=== PATIENT | female | born 1995 | race Hispanic/Latino ===

== ENCOUNTER 2018-07-21 11:01 | Emergency (ER) | payer SELFPAY ==
[2018-07-21 12:22] LABS: Absolute Lymphocytes (CBC) 1.5 K/uL (0.7-4.9); Absolute Monocytes 0.6 K/uL (0.1-1.3); Absolute Neutrophil 5.3 K/uL (1.8-8.0); Basophils % 0.4 % (0-1.3); Eosinophils % 0.6 % (0-4.4); Hematocrit 40.1 % (36.0-45.0); Lymphocytes % 19.9 % (15.3-44.8); MCH 29.6 pg (27.0-35.0); MCV 86.5 fL (80-100); Monocytes % 8.2 % (3.3-12.3); RBC Red Blood Cell Count 4.64 M/uL (3.86-4.86)
[2018-07-21 13:04] LABS: BUN Blood Urea Nitrogen 6 mg/dL (7-18); Bicarbonate 22 mmol/L (21-32); Glucose Level 83 mg/dL (74-106); HCG, Quantitative 35641 mIU/mL (1-3); Potassium 3.3 mmol/L (3.5-5.1); Sodium Level 139 mmol/L (136-145)
--- NOTE | 2018-07-21 14:08 | EDPHYS ---
Physician Documentation [facility] Name: Yesica Islas Age: 23 yrs Sex: Female : 1995 Arrival Date: 07/21/2018 Time: 11:04 Bed 13 Private MD: ED Physician Mich Mai HPI: 07/21 11:38 This 23 yrs old Female presents to ER via Ambulatory with complaints of jr8 Vaginal Bleeding, + Preg <12wks. 11:38 The patient presents to the emergency department with vaginal bleeding, that is light. jr8 The estimated gestational age is 10 weeks. course: care: none, Leakage of Fluid: none appreciated, Ultrasound: the patient has not had an ultrasound, Risk/complications: no obvious risks or complications are appreciated. Previous pregnancies: the patient has never been . Associated signs and symptoms: The patient has no apparent associated signs or symptoms. The patient has not experienced similar symptoms in the past. The patient has not recently seen a physician. spotting this morning without cramping . 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 - Social history:: Smoking status: Patient/guardian denies using tobacco. - Ebola Screening: : Patient denies travel to an Ebola-affected area in the 21 days before illness onset. ROS: 11:38 Eyes: Negative for injury, pain, redness, and discharge, ENT: Negative for injury, jr8 pain, and discharge, Neck: Negative for injury, pain, and swelling, Cardiovascular: Negative for chest pain, palpitations, and edema, Respiratory: Negative for shortness of breath, cough, wheezing, and pleuritic chest pain, Abdomen/GI: Negative for abdominal pain, nausea, vomiting, diarrhea, and constipation, Back: Negative for injury and pain, MS/Extremity: Negative for injury and deformity, Skin: Negative for injury, rash, and discoloration, Neuro: Negative for headache, weakness, numbness, tingling, and seizure. 11:38 : Positive for vaginal bleeding, Negative for urinary symptoms, pelvic pain. Exam: 11:38 Eyes: Pupils equal round and reactive to light, extra-ocular motions intact. Lids and jr8 lashes normal. Conjunctiva and sclera are non-icteric and not injected. Cornea within normal limits. Periorbital areas with no swelling, redness, or edema. ENT: Nares patent. No nasal discharge, no septal abnormalities noted. Tympanic membranes are normal and external auditory canals are clear. Oropharynx with no redness, swelling, or masses, exudates, or evidence of obstruction, uvula midline. Mucous membranes moist. Neck: Trachea midline, no thyromegaly or masses palpated, and no cervical lymphadenopathy. Supple, full range of motion without nuchal rigidity, or vertebral point tenderness. No Meningismus. Cardiovascular: Regular rate and rhythm with a normal S1 and S2. No gallops, murmurs, or rubs. Normal PMI, no JVD. No pulse deficits. Respiratory: Lungs have equal breath sounds bilaterally, clear to auscultation and percussion. No rales, rhonchi or wheezes noted. No increased work of breathing, no retractions or nasal flaring. Abdomen/GI: Soft, non-tender, with normal bowel sounds. No distension or tympany. No guarding or rebound. No evidence of tenderness throughout. Back: No spinal tenderness. No costovertebral tenderness. Full range of motion. Skin: Warm, dry with normal turgor. Normal color with no rashes, no lesions, and no evidence of cellulitis. MS/ Extremity: Pulses equal, no cyanosis. Neurovascular intact. Full, normal range of motion. Neuro: Awake and alert, GCS 15, oriented to person, place, time, and situation. Cranial nerves II-XII grossly intact. Motor strength 5/5 in all extremities. Sensory grossly intact. Cerebellar exam normal. Normal gait. Vital Signs: 11:08 BP 123 / 75; Pulse 98; Resp 20; Temp 97.2; Pulse Ox 98% on R/A; Weight 58.06 kg (R); aj1 Height 5 ft. 3 in. (160.02 cm) (R); Pain 0/10; 12:00 BP 125 / 71; Pulse 88; Resp 17; Pulse Ox 100% on R/A; rb1 13:00 BP 124 / 79; Pulse 81; Resp 16; Pulse Ox 100% on R/A; rb1 14:00 BP 124 / 77; Pulse 87; Resp 16; Pulse Ox 99% on R/A; rb1 11:08 Body Mass Index 22.67 (58.06 kg, 160.02 cm) aj1 MDM: 11:18 Patient medically screened. jr8 14:06 Data reviewed: vital signs, nurses notes, lab test result(s), radiologic studies, jr8 ultrasound, and as a result, I will discharge patient. Data interpreted: Pulse oximetry: on room air is 98 %. Interpretation: normal. Counseling: I had a detailed discussion with the patient and/or guardian regarding: the historical points, exam findings, and any diagnostic results supporting the discharge/admit diagnosis, lab results, radiology results, the need for outpatient follow up, an OB/Gyne specialist, to return to the emergency department if symptoms worsen or persist or if there are any questions or concerns that arise at home. 07/21 11:29 Order name: Quantitative Hcg; Complete Time: 13:35 8 07/21 11:29 Order name: Abo/rh Typing; Complete Time: 12:33 8 07/21 11:29 Order name: Basic Metabolic Panel; Complete Time: 13:35 8 07/21 11:29 Order name: CBC with Diff; Complete Time: 12:33 8 07/21 12:29 Order name: Urine Dipstick--Ancillary (enter results) 07/21 12:29 Order name: Urine --Ancillary (enter results) bd 07/21 11:29 Order name: Urine Test (obtain specimen); Complete Time: 12:18 8 07/21 11:29 Order name: IV Saline Lock; Complete Time: 12:11 8 07/21 11:29 Order name: Labs collected and sent; Complete Time: 12:11 8 07/21 11:29 Order name: NPO; Complete Time: 12:11 8 07/21 11:29 Order name: Urine Dipstick-Ancillary (obtain specimen); Complete Time: 12:18 [facility] 07/21 12:33 Order name: ABO/RH no charge; Complete Time: 12:34 EDMS 07/21 13:35 Order name: US Transvaginal Ob jr8 Administered Medications: No medications were administered Point of Care Testing: Urine : 13:30 hCG Reading: Positive; rb1 Disposition: 15:19 Co-signature as Attending Physician, Mich Mai MD I agree with the assessment and kdr plan of care. Disposition: 07/21/18 14:07 Discharged to Home. Impression: Threatened . - Condition is Stable. - Discharge Instructions: Threatened Miscarriage, Vaginal Bleeding During , First Trimester, Pelvic Rest. - Medication Reconciliation Form, Thank You Letter, Antibiotic Education, Prescription Opioid Use form. - Follow up: Private Physician; When: 2 - 3 days; Reason: Recheck today's complaints, Continuance of care, Re-evaluation by your physician. - Problem is new. - Symptoms have improved. Signatures: Dispatcher [employer] EDWV Dorinda Wooten RN RN aj1 Mich Mai MD MD kdr Roszak, Josh, PA PA jr8 Deepthi Alcala, RN RN rb1 Corrections: (The following items were deleted from the chart) 15:06 14:07 07/21/2018 14:07 Discharged to Home. Impression: Threatened . Condition rb1 is Stable. Forms are Medication Reconciliation Form, Thank You Letter, Antibiotic Education, Prescription Opioid Use. Follow up: Private Physician; When: 2 - 3 days; Reason: Recheck today's complaints, Continuance of care, Re-evaluation by your physician. Problem is new. Symptoms have improved. jr8
--- NOTE | 2018-07-21 14:08 | ER ---
Nurse's Notes [facility] Name: Yesica Islas Age: 23 yrs Sex: Female : 1995 Arrival Date: 07/21/2018 Time: 11:04 Bed 13 Private MD: Diagnosis: Threatened Presentation: 07/21 11:05 Presenting complaint: Patient states: She's 10 weeks and she started having aj1 bright red vaginal bleeding that she describes as light. Reports that she has been getting some cramping since she became , but nothing that has changed or gotten worse. Transition of care: patient was not received from another setting of care. Onset of symptoms was July 21, 2018. Risk Assessment: Do you want to hurt yourself or someone else? Patient reports no desire to harm self or others. Initial Sepsis Screen: Does the patient meet any 2 criteria? HR > 90 bpm. No. Patient's initial sepsis screen is negative. Does the patient have a suspected source of infection? No. Patient's initial sepsis screen is negative. Care prior to arrival: None. 11:05 Method Of Arrival: Ambulatory aj1 11:05 Acuity: KOFI 3 aj1 Triage Assessment: 11:08 General: Appears in no apparent distress. comfortable, Behavior is calm, cooperative, aj1 appropriate for age. Pain: Denies pain. Neuro: Level of Consciousness is awake, alert, obeys commands. Cardiovascular: Patient's skin is warm and dry. Respiratory: Airway is patent Respiratory effort is even, unlabored, Respiratory pattern is regular, symmetrical. : Reports vaginal bleeding that is bright red, light flow. 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 - Social history:: Smoking status: Patient/guardian denies using tobacco. - Ebola Screening: : Patient denies travel to an Ebola-affected area in the 21 days before illness onset. Screenin:10 Abuse screen: Denies threats or abuse. Nutritional screening: No deficits noted. rb1 Tuberculosis screening: No symptoms or risk factors identified. Fall Risk None identified. Assessment: 11:10 General: Appears in no apparent distress. comfortable, Behavior is calm, cooperative, rb1 Denies fever. Pain: Complains of pain in suprapubic area Pain currently is 5 out of 10 on a pain scale. Quality of pain is described as crampy, Pain began this morning. Neuro: Level of Consciousness is awake, alert, obeys commands, Oriented to person, place, time, situation. Cardiovascular: Capillary refill < 3 seconds is brisk in bilateral fingers. Respiratory: Airway is patent Respiratory effort is even, unlabored, Respiratory pattern is regular, symmetrical. GI: No signs and/or symptoms were reported involving the gastrointestinal system. : Reports vaginal bleeding that is light flow, denies blood clots Denies burning with urination. Derm: Skin is pink, warm \T\ dry. 11:10 Obstetrical Assessment: Patient reports abdominal cramping. rb1 12:10 Reassessment: Patient appears in no apparent distress at this time. No changes from rb1 previously documented assessment. Family at bedside. 13:10 Reassessment: Patient appears in no apparent distress at this time. Patient and/or rb1 family updated on plan of care and expected duration. Pain level reassessed. Patient is alert, oriented x 3, equal unlabored respirations, skin warm/dry/pink. 13:44 Reassessment: Pt. is going to US. rb1 14:30 Reassessment: Patient appears in no apparent distress at this time. Patient and/or rb1 family updated on plan of care and expected duration. Pain level reassessed. Patient is alert, oriented x 3, equal unlabored respirations, skin warm/dry/pink. Vital Signs: 11:08 BP 123 / 75; Pulse 98; Resp 20; Temp 97.2; Pulse Ox 98% on R/A; Weight 58.06 kg (R); aj1 Height 5 ft. 3 in. (160.02 cm) (R); Pain 0/10; 12:00 BP 125 / 71; Pulse 88; Resp 17; Pulse Ox 100% on R/A; rb1 13:00 BP 124 / 79; Pulse 81; Resp 16; Pulse Ox 100% on R/A; rb1 14:00 BP 124 / 77; Pulse 87; Resp 16; Pulse Ox 99% on R/A; rb1 11:08 Body Mass Index 22.67 (58.06 kg, 160.02 cm) aj1 Vitals: 13:00 Heart Tones 128 bpm. rb1 ED Course: 11:04 Patient arrived in ED. aj1 11:07 Triage completed. aj1 11:08 Arm band placed on Patient placed in an exam room. aj1 11:10 Deepthi Alcala, RN is Primary Nurse. rb1 11:10 Patient has correct armband on for positive identification. Bed in low position. Call rb1 light in reach. Side rails up X 1. Pulse ox on. NIBP on. 11:18 Mir Cervantes PA is PHCP. jr8 11:18 Mich Mai MD is Attending Physician. jr8 12:00 Inserted saline lock: 22 gauge in right antecubital area, using aseptic technique. rb1 Blood collected. 12:17 Urine collected: clean catch specimen, cloudy. dh3 14:01 US Transvaginal Ob In Process Unspecified. EDMS 14:35 No provider procedures requiring assistance completed. IV discontinued, intact, rb1 bleeding controlled, No redness/swelling at site. Pressure dressing applied. 14:35 No provider procedures requiring assistance completed. rb1 Administered Medications: No medications were administered Point of Care Testing: Urine : 13:30 hCG Reading: Positive; rb1 Outcome: 14:07 Discharge ordered by . [facility] 14:35 Patient left the ED. rb1 14:35 Discharged to home ambulatory, with family. rb1 14:35 Condition: stable 14:35 Discharge instructions given to patient, Instructed on discharge instructions, follow up and referral plans. Demonstrated understanding of instructions, follow-up care, Prescriptions given X none Signatures: Dispatcher [employer] EDWI Dorinda Wooten RN RN aj1 Mir Cervantes PA PA [facility] Deepthi Alcala, RN RN rb1 Silvia Finn 3 Corrections: (The following items were deleted from the chart) 15:07 15:06 Patient left the ED. rb1 rb1
--- NOTE | 2018-07-21 15:07 | RAD REPORT ---
EXAM DESCRIPTION: US - Transvaginal OB - 07/21/2018 2:01 pm CLINICAL HISTORY: , vaginal bleeding Preliminary findings provided at the time of the study. COMPARISON: None. TECHNIQUE: Endovaginal sonography performed. FINDINGS: A normal-appearing intrauterine gestational sac is seen fundal endometrial cavity. Yolk sa c is seen. [place]-rump length corresponds to 6 week 4 day age. SIMONA is 03/12/2019. Heart rate is 128 BP M. No hematoma or mass in the endometrial cavity. Cervical canal appears closed. A 13 millimeter partially collapsed right ovarian cyst is present. Ovaries have a normal configuratio n. No adnexal abnormality. No blood or free fluid in the cul-de-sac. IMPRESSION: Single 6 week 4 day IUP. SIMONA is 03/12/2019. Heart rate is 128 BPM. No hematoma or intrauterine abnormality. No ovarian or adnexal abnormality.
[2018-07-21 16:34] LABS: Urine Blood TRACE (NEG); Urine Glucose NEGATIVE (NEG); Urine Protein NEGATIVE (NEG)
== END 2018-07-21 15:06 | disposition home or self-care (01) ==
LOC: ER 11:01
DX: O20.0 Threatened abortion (principal); Z3A.10 10 weeks gestation of pregnancy
CPT/HCPCS: 36415; 76817; 80048; 81003; 81025; 84702; 85025; 86900; 86901; 99284

== ENCOUNTER 2018-08-12 19:42 | Emergency (ER) | payer OTHER ==
[2018-08-12 20:58] LABS: Urine Bacteria LOADED /HPF (<20); Urine Culture Reflex Order REFLEXED; Urine RBC NONE SEEN /HPF (NONE SEEN)
[2018-08-12 21:18] LABS: Urine Blood TRACE (NEG); Urine Glucose NEGATIVE (NEG); Urine Protein NEGATIVE (NEG); Urine Specific Gravity 1.025 (1.005-1.030)
--- NOTE | 2018-08-12 22:32 | EDPHYS ---
Physician Documentation [facility] Name: Yesica Islas Age: 23 yrs Sex: Female : 1995 Arrival Date: 08/12/2018 Time: 19:45 Bed 18 Private MD: ED Physician Roman Landry HPI: 08/12 20:11 This 23 yrs old Female presents to ER via Ambulatory with complaints of rn Congestion, Nasal Congestion. 20:11 The patient or guardian reports cough, described as mild, with no sputum. Onset: The rn symptoms/episode began/occurred 5 day(s) ago. Severity of symptoms: At their worst the symptoms were mild, in the emergency department the symptoms are unchanged. Associated signs and symptoms: Pertinent positives: earache, rhinorrhea, sore throat. The patient has experienced similar episodes in the past. REports fatigue, cough, congestion, sore throat, ear pain, no fever, began 5 days ago, no urinary symptoms, no vaginal discharge, no vaginal bleeding, no abd pain. Reports about 10-12 weeks . No chronic lung problems. . 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 - Social history:: Smoking status: Patient/guardian denies using tobacco. - Ebola Screening: : Patient denies travel to an Ebola-affected area in the 21 days before illness onset. - Family history:: not pertinent. - Hospitalizations: : No recent hospitalization is reported. ROS: 20:11 Constitutional: Negative for fever, chills, and weight loss, Eyes: Negative for injury, rn pain, redness, and discharge, ENT: + nasal congestion and ear pain Neck: + sore throat Cardiovascular: Negative for chest pain, palpitations, and edema, Respiratory: + cough, no sob Abdomen/GI: Negative for abdominal pain, nausea, vomiting, diarrhea, and constipation, MS/Extremity: Negative for injury and deformity, Skin: Negative for injury, rash, and discoloration, Neuro: Negative for headache, numbness, tingling, and seizure. Exam: 20:11 Constitutional: This is a well developed, well nourished patient who is awake, alert, rn and in no acute distress. Walked without difficulty to room. Head/Face: Normocephalic, atraumatic. Eyes: Pupils equal round and reactive to light, extra-ocular motions intact. Lids and lashes normal. Conjunctiva and sclera are non-icteric and not injected. Cornea within normal limits. Periorbital areas with no swelling, redness, or edema. ENT: MMM, no stridor, + mild pharyngeal erythema, + tender cervical LAD Neck: Trachea midline, no thyromegaly or masses palpated. Supple, full range of motion without nuchal rigidity, or vertebral point tenderness. No Meningismus. Cardiovascular: Regular rate and rhythm with a normal S1 and S2. No gallops, murmurs, or rubs. Normal PMI, no JVD. No pulse deficits. Respiratory: Lungs have equal breath sounds bilaterally, clear to auscultation and percussion. No rales, rhonchi or wheezes noted. No increased work of breathing, no retractions or nasal flaring. Abdomen/GI: soft, non-tender Skin: Warm, dry with normal turgor. Normal color with no rashes, no lesions, and no evidence of cellulitis. MS/ Extremity: Pulses equal, no cyanosis. Neurovascular intact. Full, normal range of motion. Equal circumference. Neuro: Awake and alert, GCS 15, oriented to person, place, time, and situation. Cranial nerves II-XII grossly intact. Motor strength 5/5 in all extremities. Sensory grossly intact. Cerebellar exam normal. Normal gait. Vital Signs: 19:58 BP 120 / 76; Pulse 86; Resp 18; Temp 98.0; Pulse Ox 99% on R/A; Weight 63.05 kg (R); aj1 Height 5 ft. 3 in. (160.02 cm) (R); 20:30 BP 110 / 69; Pulse 77; Resp 20 S; Pulse Ox 99% on R/A; cc3 21:15 BP 107 / 76; Pulse 71; Resp 19 S; Pulse Ox 99% on R/A; cc3 22:40 BP 112 / 67; Pulse 72; Resp 19 S; Pulse Ox 98% on R/A; cc3 19:58 Body Mass Index 24.62 (63.05 kg, 160.02 cm) aj1 MDM: 20:01 Patient medically screened. rn 22:30 Differential Diagnosis: Bronchitis Influenza Upper Respiratory Infection Pharyngitis rn Viral Syndrome. Data reviewed: vital signs, nurses notes, lab test result(s), radiologic studies, ultrasound, and as a result, I will discharge patient. Counseling: I had a detailed discussion with the patient and/or guardian regarding: the historical points, exam findings, and any diagnostic results supporting the discharge/admit diagnosis, lab results, radiology results, the need for outpatient follow up, to return to the emergency department if symptoms worsen or persist or if there are any questions or concerns that arise at home. Special discussion: I discussed with the patient/guardian in detail that at this point there is no indication for admission to the hospital. It is understood, however, that if the symptoms persist or worsen the patient needs to return immediately for re-evaluation. Based on the history and exam findings, there is no indication for further emergent testing or inpatient evaluation. I discussed with the patient/guardian the need to see the OB Gyne specialist for further evaluation of the symptoms. 22:32 ED course: U/S shows 10 weeks gestational age with HR 166.. rn 08/12 20:10 Order name: Strep; Complete Time: 21:13 rn 08/12 20:10 Order name: Flu; Complete Time: 21:13 rn 08/12 20:10 Order name: Urine Microscopic Only; Complete Time: 21:13 rn 08/12 20:23 Order name: Urine Dipstick--Ancillary (enter results) [facility] 08/12 20:23 Order name: Urine --Ancillary (enter results) [facility] 08/12 21:00 Order name: Urine Culture [facility] 08/12 20:10 Order name: Urine Dipstick-Ancillary (obtain specimen); Complete Time: 20:19 rn 08/12 20:23 Order name: Urine Test (obtain specimen); Complete Time: 20:23 [facility] 08/12 21:10 Order name: Throat Culture [facility] Administered Medications: No medications were administered Disposition: 08/12/18 22:31 Discharged to Home. Impression: Acute upper respiratory infection, unspecified, Bacteruria, Intrauterine . - Condition is Stable. - Discharge Instructions: Viral Respiratory Infection, First Trimester of , and Urinary Tract Infection. - Prescriptions for Macrobid 100 mg Oral Capsule - take 1 capsule by ORAL route every 12 hours for 7 days; 14 capsule. - Medication Reconciliation Form, Thank You Letter, Antibiotic Education, Prescription Opioid Use form. - Follow up: Private Physician; When: As needed; Reason: Recheck today's complaints, Re-evaluation by your physician. - Problem is new. - Symptoms have improved. Signatures: Dispatcher [employer] EDDorinda Santana RN RN aj1 Roman Landry MD MD rn Martinez, Eric em1 Linda Jennings cc3 Corrections: (The following items were deleted from the chart) 23:08 22:31 08/12/2018 22:31 Discharged to Home. Impression: Acute upper respiratory cc3 infection, unspecified; Bacteruria; Intrauterine . Condition is Stable. Forms are Medication Reconciliation Form, Thank You Letter, Antibiotic Education, Prescription Opioid Use. Follow up: Private Physician; When: As needed; Reason: Recheck today's complaints, Re-evaluation by your physician. Problem is new. Symptoms have improved. rn
--- NOTE | 2018-08-12 22:32 | ER ---
Nurse's Notes [facility] Name: Yesica Islas Age: 23 yrs Sex: Female : 1995 Arrival Date: 08/12/2018 Time: 19:45 Bed 18 Private MD: Diagnosis: Acute upper respiratory infection, unspecified;Bacteruria;Intrauterine Presentation: 08/12 19:55 Presenting complaint: Patient states: Nasal congestion, ear pain, sore throat for the aj1 past 5 days. Denies fever. Patient reports she is somewhere between 10-12 weeks . Patient has not had any care. Transition of care: patient was not received from another setting of care. Resp Distress? No respiratory distress is noted at this time. Onset of symptoms was August 06, 2018. Risk Assessment: Do you want to hurt yourself or someone else? Patient reports no desire to harm self or others. Initial Sepsis Screen: Does the patient meet any 2 criteria? No. Patient's initial sepsis screen is negative. Does the patient have a suspected source of infection? No. Patient's initial sepsis screen is negative. Care prior to arrival: None. 19:55 Method Of Arrival: Ambulatory aj1 19:55 Acuity: KOFI 4 aj1 Triage Assessment: 19:58 General: Appears in no apparent distress. comfortable, Behavior is calm, cooperative, aj1 appropriate for age. Pain: Complains of pain in right ear, left ear, left femoral area, left aspect of posterior pharynx and right aspect of posterior pharynx Pain currently is 6 out of 10 on a pain scale. EENT: Reports nasal congestion nasal discharge ear pain, sore throat. Neuro: Level of Consciousness is awake, alert, obeys commands. Cardiovascular: Patient's skin is warm and dry. Respiratory: Airway is patent Respiratory effort is even, unlabored, Respiratory pattern is regular, symmetrical. 20:10 Respiratory: Breath sounds are clear bilaterally. 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 - Social history:: Smoking status: Patient/guardian denies using tobacco. - Ebola Screening: : Patient denies travel to an Ebola-affected area in the 21 days before illness onset. - Family history:: not pertinent. - Hospitalizations: : No recent hospitalization is reported. Screenin:10 Abuse screen: Denies threats or abuse. Denies injuries from another. Nutritional cc3 screening: No deficits noted. Tuberculosis screening: No symptoms or risk factors identified. Fall Risk Ambulatory Aid- None/Bed Rest/Nurse Assist (0 pts). Gait- Normal/Bed Rest/Wheelchair (0 pts) Mental Status- Oriented to own ability (0 pts). Assessment: 21:30 Reassessment: Patient appears in no apparent distress at this time. Patient and/or cc3 family updated on plan of care and expected duration. Pain level reassessed. Patient is alert, oriented x 3, equal unlabored respirations, skin warm/dry/pink. Patient vomited, called ultrasound department at extension [phone] to follow up the OB ultrasound appointment of the patient but nobody answered the call so just left a voicemail message. 22:15 Reassessment: Patient appears in no apparent distress at this time. Patient and/or cc3 family updated on plan of care and expected duration. Pain level reassessed. Patient is alert, oriented x 3, equal unlabored respirations, skin warm/dry/pink. Patient taken by breeder service technician to their department for the ultrasound procedure. 23:00 Reassessment: Patient appears in no apparent distress at this time. Patient and/or cc3 family updated on plan of care and expected duration. Pain level reassessed. Patient is alert, oriented x 3, equal unlabored respirations, skin warm/dry/pink. Dr. Landry discharged the patient home with prescription given. No IV cannula in situ. Patient left ER vitally stable and ambulatory with her mother. Vital Signs: 19:58 BP 120 / 76; Pulse 86; Resp 18; Temp 98.0; Pulse Ox 99% on R/A; Weight 63.05 kg (R); aj1 Height 5 ft. 3 in. (160.02 cm) (R); 20:30 BP 110 / 69; Pulse 77; Resp 20 S; Pulse Ox 99% on R/A; cc3 21:15 BP 107 / 76; Pulse 71; Resp 19 S; Pulse Ox 99% on R/A; cc3 22:40 BP 112 / 67; Pulse 72; Resp 19 S; Pulse Ox 98% on R/A; cc3 19:58 Body Mass Index 24.62 (63.05 kg, 160.02 cm) aj1 ED Course: 19:45 Patient arrived in ED. al2 19:57 Triage completed. aj1 19:58 Arm band placed on. aj1 20:00 Roman Landry MD is Attending Physician. rn 20:10 Linda Jennings is Primary Nurse. cc3 20:10 Patient has correct armband on for positive identification. Bed in low position. Call cc3 light in reach. Side rails up X 1. Adult w/ patient. director of plant operations on. Pulse ox on. NIBP on. 20:28 Flu and/or RSV swab sent to lab. Strep swab sent to lab. cb2 22:13 US OB Limited In Process Unspecified. EDMS 23:00 No provider procedures requiring assistance completed. Patient did not have IV access cc3 during this emergency room visit. Administered Medications: No medications were administered Outcome: 22:31 Discharge ordered by . rn 23:00 Discharged to home ambulatory, with family. cc3 23:00 Condition: stable 23:00 Discharge instructions given to patient, family, Instructed on discharge instructions, follow up and referral plans. medication usage, Demonstrated understanding of instructions, follow-up care, medications, Prescriptions given X 1. 23:08 Patient left the ED. cc3 Addendum: 08/15/2018 07:35 Addendum: Culture Results: Positive urine culture. No further action required. Bacteria i w sensitive to prescribed antibiotic. Signatures: Dispatcher [employer] EDMS Dorinda Wooten RN RN aj1 Jackie Rios RN RN Roman Landry MD MD rn Bulan, Christian cb2 Love, Angelica alLinda Baez cc3
--- NOTE | 2018-08-13 07:50 | RAD REPORT ---
EXAM DESCRIPTION: US - Transvaginal OB - 08/13/2018 7:39 am CLINICAL HISTORY: with abdominal pain and vaginal bleeding COMPARISON: None. FINDINGS: The uterus 9 x 7 x 7 centimeters. A gestational sac is present within the endometrium. Wi thin this is a yolk sac and pole with a crown-rump length 3.3 centimeters. Cardiac activity 166 beats per minute Neither ovary was seen. An adnexal mass is not noted. No significant free fluid is seen. IMPRESSION: Single live intrauterine with an estimated gestational age 10 weeks 1 day SIMONA 03/09/2019
== END 2018-08-12 23:08 | disposition home or self-care (01) ==
LOC: ER 19:42
DX: J06.9 Acute upper respiratory infection, unspecified (principal); R82.71 Bacteriuria; Z33.1 Pregnant state, incidental
CPT/HCPCS: 76815; 76817; 81003; 81015; 81025; 87070; 87077; 87081; 87086; 87088; 87186; 87804; 99284

== ENCOUNTER 2018-09-29 11:19 | Emergency (ER) | payer OTHER ==
[2018-09-29 12:20] LABS: Absolute Lymphocytes (CBC) 1.2 K/uL (0.7-4.9); Absolute Monocytes 0.5 K/uL (0.1-1.3); Absolute Neutrophil 5.8 K/uL (1.8-8.0); Basophils % 0.3 % (0-1.3); Eosinophils % 0.2 % (0-4.4); Hematocrit 36.6 % (36.0-45.0); Lymphocytes % 16.4 % (15.3-44.8); MPV 10.7 fL (7.6-11.3); Monocytes % 6.7 % (3.3-12.3); RBC Red Blood Cell Count 4.23 M/uL (3.86-4.86)
[2018-09-29] MEDS ORDERED: MECLIZINE HCL 12.5 MG TAB ONE (12:31)
[2018-09-29] MEDS ORDERED: ONDANSETRON 4 MG/2 ML VIAL ONE (12:31)
[2018-09-29] MEDS ORDERED: NA CHLORIDE 0.9% 1,000 ML ONE (12:31)
[2018-09-29 12:38] LABS: ALT/SGPT 10 U/L (12-78); AST/SGOT 11 U/L (15-37); Albumin 3.4 g/dL (3.4-5.0); Alkaline Phosphatase 75 U/L (45-117); BUN Blood Urea Nitrogen 6 mg/dL (7-18); Bicarbonate 22 mmol/L (21-32); Bilirubin Total 0.4 mg/dL (0.2-1.0); Glucose Level 81 mg/dL (74-106); Potassium 3.2 mmol/L (3.5-5.1); Protein, Total 7.7 g/dL (6.4-8.2); Sodium Level 139 mmol/L (136-145)
[2018-09-29] MEDS ORDERED: POTASSIUM CL SA 10 MEQ TAB PO ONE (13:04)
[2018-09-29] MEDS ORDERED: ACETAMINOPHEN 500 MG TAB ONE (13:13)
--- NOTE | 2018-09-29 13:20 | ER ---
Nurse's Notes [facility] Name: Yesica Islas Age: 23 yrs Sex: Female : 1995 Arrival Date: 09/29/2018 Time: 11:25 Bed 20 Private MD: None, None Diagnosis: Vertigo of central origin;Vomiting of , unspecified Presentation: 09/29 11:27 Presenting complaint: Patient states: i am 17 weeks and i started feeling tw2 dizzy yesterday, i throw up all the time i cant hardly keep anything down. Transition of care: patient was not received from another setting of care. Onset of symptoms was September 29, 2018. Risk Assessment: Do you want to hurt yourself or someone else? Patient reports no desire to harm self or others. Initial Sepsis Screen: Does the patient meet any 2 criteria? No. Patient's initial sepsis screen is negative. Does the patient have a suspected source of infection? No. Patient's initial sepsis screen is negative. Care prior to arrival: None. 11:27 Method Of Arrival: Ambulatory tw2 11:27 Acuity: KOFI 3 tw2 Triage Assessment: 11:29 General: Appears in no apparent distress. well groomed, Behavior is calm, cooperative, tw2 appropriate for age. Pain: Denies pain. Also complains of dizziness. GI: Reports cramping, nausea. 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 - Social history:: Smoking status: Patient/guardian denies using tobacco. - Ebola Screening: : Patient denies travel to an Ebola-affected area in the 21 days before illness onset. Screenin:15 Abuse screen: Denies threats or abuse. Nutritional screening: No deficits noted. la1 Tuberculosis screening: No symptoms or risk factors identified. Fall Risk None identified. Assessment: 12:15 General: Appears in no apparent distress. Behavior is calm, cooperative. Pain: Denies la1 pain. Neuro: Level of Consciousness is awake, alert, obeys commands, Oriented to person, place, time, situation, Technical System Analyst are equal bilaterally Moves all extremities. Full function Gait is steady, Speech is normal, Facial symmetry appears normal, Pupils are PERRLA. Cardiovascular: Capillary refill < 3 seconds Patient's skin is warm and dry. Respiratory: Airway is patent Respiratory effort is even, unlabored, Respiratory pattern is regular, symmetrical. GI: Reports nausea, vomiting, Patient currently denies bloody stool, constipation, cramping, diarrhea. : No signs and/or symptoms were reported regarding the genitourinary system. Vital Signs: 11:28 BP 115 / 79; Pulse 78; Resp 17; Temp 97.5(TE); Pulse Ox 99% on R/A; Pain 0/10; tw2 13:36 BP 118 / 74; Pulse 71; Resp 16; Pulse Ox 98% on R/A; la1 NIH Stroke Scale Scores: 13:09 NIHSS Score: 0 la1 ED Course: 11:25 Patient arrived in ED. sb2 11:25 None, None is Private Physician. sb2 11:28 Triage completed. tw2 11:28 Arm band placed on. tw2 11:58 Maria Eugenia Henry FNP is PHCP. nh 11:58 Roman Landry MD is Attending Physician. nh 11:58 Mya Young, PIPO is Primary Nurse. ss 12:15 No provider procedures requiring assistance completed. Inserted saline lock: 20 gauge la1 in left antecubital area, using aseptic technique. Blood collected. 12:16 Bed in low position. Call light in reach. Side rails up X 1. la1 13:37 IV discontinued, intact, bleeding controlled, No redness/swelling at site. Pressure la1 dressing applied. Administered Medications: 12:27 Drug: NS 0.9% 1000 ml Route: IV; Rate: 1 bolus; Site: right antecubital; la1 13:08 Follow up: IV Status: Completed infusion la1 12:28 Not Given (Other Intervention Used): Zofran 4 mg PO once la1 12:28 Drug: Zofran 4 mg Route: IVP; Site: right antecubital; la1 13:08 Follow up: Response: No adverse reaction; Nausea is decreased la1 13:00 Drug: Meclizine 25 mg Route: PO; la1 13:08 Follow up: Response: No adverse reaction la1 13:00 Drug: Potassium Chloride 40 mEq Route: PO; la1 13:09 Follow up: Response: No adverse reaction la1 13:08 Drug: Tylenol 1000 mg Route: PO; la1 13:09 Follow up: Response: No adverse reaction la1 Outcome: 13:20 Discharge ordered by . nh 13:37 Discharged to home ambulatory. la1 13:37 Condition: stable 13:37 Discharge instructions given to patient, Instructed on discharge instructions, follow up and referral plans. medication usage, Demonstrated understanding of instructions, follow-up care, medications, Prescriptions given X 1. 13:37 Patient left the ED. la1 NIH Stroke Scale - NIH Stroke Score Date: 09/29/2018 Time: 13:09 Total Score = 0 1a. Level of Consciousness (LOC) - 0(Alert) 1b. Level of Consciousness (LOC) (Year \T\ Age) - 0(Both) 1c. LOC Commands (Open \T\ Closes Eyes/Machine Compositor) - 0(Both) 2. Best Gaze (Lateral Gaze Paresis) - 0(Normal) 3. Visual Field Loss - 0(No visual loss) 4. Facial Palsy - 0(Normal) 5a. Left Arm: Motor (10-second hold) - 0(No drift) 5b. Right Arm: Motor (10-second hold) - 0(No drift) 6a. Left Leg: Motor (5-second hold - always test supine) - 0(No drift) 6b. Right Leg: Motor (5-second hold - always test supine) - 0(No drift) 7. Limb Ataxia (finger/nose \T\ heel/sena - test with eyes open) - 0(Absent) 8. Sensory Loss (pinprick arms/legs/face) - 0(Normal) 9. Best Language: Aphasia (description/naming/reading) - 0(No aphasia) 10. Dysarthria (speech clarity - read or repeat words) - 0(Normal) 11. Extinction and Inattention (visual/tactile/auditory/spatial/personal) - 0(No abnormality) Initials: la1 Signatures: Maria Eugenia Henry, CAKE ICER CAKE ICER Mya Paul RN RN ss Dariel Disla RN RN la1 Autumn Dodge RN RN tw2 Chela Summers2
--- NOTE | 2018-09-29 13:20 | EDPHYS ---
Physician Documentation [facility] Name: Yesica Islas Age: 23 yrs Sex: Female : 1995 Arrival Date: 09/29/2018 Time: 11:25 Bed 20 Private MD: None, None ED Physician Roman Landry HPI: 09/29 13:16 This 23 yrs old Female presents to ER via Ambulatory with complaints of nh Dizziness - HEAD SPINNING. 13:16 The patient presents with dizziness, feeling off balance, sense of spinning. Onset: The nh symptoms/episode began/occurred 1 day(s) ago, and became worse. Context: occurred at home. Modifying factors: The symptoms are alleviated by holding head still, the symptoms are aggravated by movement of head. Associated signs and symptoms: Pertinent positives: nausea, , vomiting. Severity of symptoms: At their worst the symptoms were moderate just prior to arrival, in the emergency department the symptoms are unchanged. The patient has not experienced similar symptoms in the past. The patient has not recently seen a physician. 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 - Social history:: Smoking status: Patient/guardian denies using tobacco. - Ebola Screening: : Patient denies travel to an Ebola-affected area in the 21 days before illness onset. ROS: 13:16 Constitutional: Negative for fever, chills, and weight loss, Eyes: Negative for injury, nh pain, redness, and discharge, ENT: Negative for injury, pain, and discharge, Neck: Negative for injury, pain, and swelling, Cardiovascular: Negative for chest pain, palpitations, and edema, Respiratory: Negative for shortness of breath, cough, wheezing, and pleuritic chest pain, Back: Negative for injury and pain, : Negative for injury, bleeding, discharge, and swelling, MS/Extremity: Negative for injury and deformity, Skin: Negative for injury, rash, and discoloration, Psych: Negative for depression, anxiety, suicide ideation, homicidal ideation, and hallucinations, Allergy/Immunology: Negative for hives, rash, and allergies, Endocrine: Negative for neck swelling, polydipsia, polyuria, polyphagia, and marked weight changes, Hematologic/Lymphatic: Negative for swollen nodes, abnormal bleeding, and unusual bruising. 13:16 Abdomen/GI: Positive for nausea and vomiting, Negative for abdominal pain, diarrhea. 13:16 Neuro: Positive for dizziness. Exam: 13:16 Constitutional: This is a well developed, well nourished patient who is awake, alert, nh and in no acute distress. Head/Face: Normocephalic, atraumatic. Eyes: Pupils equal round and reactive to light, extra-ocular motions intact. Lids and lashes normal. Conjunctiva and sclera are non-icteric and not injected. Cornea within normal limits. Periorbital areas with no swelling, redness, or edema. ENT: Nares patent. No nasal discharge, no septal abnormalities noted. Tympanic membranes are normal and external auditory canals are clear. Oropharynx with no redness, swelling, or masses, exudates, or evidence of obstruction, uvula midline. Mucous membranes moist. Neck: Trachea midline, no thyromegaly or masses palpated, and no cervical lymphadenopathy. Supple, full range of motion without nuchal rigidity, or vertebral point tenderness. No Meningismus. Chest/axilla: Normal chest wall appearance and motion. Nontender with no deformity. No lesions are appreciated. Cardiovascular: Regular rate and rhythm with a normal S1 and S2. No gallops, murmurs, or rubs. Normal PMI, no JVD. No pulse deficits. Respiratory: Lungs have equal breath sounds bilaterally, clear to auscultation and percussion. No rales, rhonchi or wheezes noted. No increased work of breathing, no retractions or nasal flaring. Abdomen/GI: Soft, non-tender, with normal bowel sounds. No distension or tympany. No guarding or rebound. No evidence of tenderness throughout. Back: No spinal tenderness. No costovertebral tenderness. Full range of motion. Skin: Warm, dry with normal turgor. Normal color with no rashes, no lesions, and no evidence of cellulitis. MS/ Extremity: Pulses equal, no cyanosis. Neurovascular intact. Full, normal range of motion. Neuro: Awake and alert, GCS 15, oriented to person, place, time, and situation. Cranial nerves II-XII grossly intact. Motor strength 5/5 in all extremities. Sensory grossly intact. Cerebellar exam normal. Normal gait. Psych: Awake, alert, with orientation to person, place and time. Behavior, mood, and affect are within normal limits. Vital Signs: 11:28 BP 115 / 79; Pulse 78; Resp 17; Temp 97.5(TE); Pulse Ox 99% on R/A; Pain 0/10; tw2 13:36 BP 118 / 74; Pulse 71; Resp 16; Pulse Ox 98% on R/A; la1 NIH Stroke Scale Scores: 13:09 NIHSS Score: 0 la1 MDM: 11:58 Patient medically screened. al 13:16 Data reviewed: vital signs, nurses notes, lab test result(s), I have discussed the al patient's presentation/case with the attending Emergency Department Physician; and as a result, I will discharge patient. Counseling: I had a detailed discussion with the patient and/or guardian regarding: the historical points, exam findings, and any diagnostic results supporting the discharge/admit diagnosis, lab results, the need for outpatient follow up, to return to the emergency department if symptoms worsen or persist or if there are any questions or concerns that arise at home. Response to treatment: the patient's symptoms have markedly improved after treatment, patient is well hydrated. and as a result, I will discharge patient. 09/29 12:10 Order name: CBC with Diff; Complete Time: 12:40 al 09/29 12:10 Order name: CMP; Complete Time: 12:40 al 09/29 12:40 Order name: PO challenge; Complete Time: 12:41 al Administered Medications: 12:27 Drug: NS 0.9% 1000 ml Route: IV; Rate: 1 bolus; Site: right antecubital; la1 13:08 Follow up: IV Status: Completed infusion la1 : Not Given (Other Intervention Used): Zofran 4 mg PO once la1 :28 Drug: Zofran 4 mg Route: IVP; Site: right antecubital; la1 13:08 Follow up: Response: No adverse reaction; Nausea is decreased la1 13:00 Drug: Meclizine 25 mg Route: PO; la1 13:08 Follow up: Response: No adverse reaction la1 13:00 Drug: Potassium Chloride 40 mEq Route: PO; la1 13:09 Follow up: Response: No adverse reaction la1 13:08 Drug: Tylenol 1000 mg Route: PO; la1 13:09 Follow up: Response: No adverse reaction la1 Disposition: 14:00 Co-signature as Attending Physician, Roman Landry MD. rn Disposition: 09/29/18 13:20 Discharged to Home. Impression: Vertigo of central origin, Vomiting of , unspecified. - Condition is Stable. - Discharge Instructions: Morning Sickness, [id number], Nausea and Vomiting, Adult. - Prescriptions for Zofran 4 mg Oral Tablet - take 1 tablet by ORAL route every 6 hours As needed; 30 tablet. - Medication Reconciliation Form, Thank You Letter, Antibiotic Education form. - Follow up: Private Physician; When: 5 - 6 days; Reason: Recheck today's complaints. - Problem is new. - Symptoms are unchanged. NIH Stroke Scale - NIH Stroke Score Date: 09/29/2018 Time: 13:09 Total Score = 0 1a. Level of Consciousness (LOC) - 0(Alert) 1b. Level of Consciousness (LOC) (Year \T\ Age) - 0(Both) 1c. LOC Commands (Open \T\ Closes Eyes/Director Of Promotions) - 0(Both) 2. Best Gaze (Lateral Gaze Paresis) - 0(Normal) 3. Visual Field Loss - 0(No visual loss) 4. Facial Palsy - 0(Normal) 5a. Left Arm: Motor (10-second hold) - 0(No drift) 5b. Right Arm: Motor (10-second hold) - 0(No drift) 6a. Left Leg: Motor (5-second hold - always test supine) - 0(No drift) 6b. Right Leg: Motor (5-second hold - always test supine) - 0(No drift) 7. Limb Ataxia (finger/nose \T\ heel/sena - test with eyes open) - 0(Absent) 8. Sensory Loss (pinprick arms/legs/face) - 0(Normal) 9. Best Language: Aphasia (description/naming/reading) - 0(No aphasia) 10. Dysarthria (speech clarity - read or repeat words) - 0(Normal) 11. Extinction and Inattention (visual/tactile/auditory/spatial/personal) - 0(No abnormality) Initials: catrina Signatures: Dispatcher [employer] EDMS Maria Eugenia Henry, CONSTRUCTION CARPENTER CONSTRUCTION CARPENTER al Roman Landry MD MD rn Attema, Lee, RN RN la1 Autumn Dodge RN RN tw2 Corrections: (The following items were deleted from the chart) 13:37 13:20 09/29/2018 13:20 Discharged to Home. Impression: Vertigo of central la1 origin; Vomiting of , unspecified. Condition is Stable. Forms are Medication Reconciliation Form, Thank You Letter, Antibiotic Education, Prescription Opioid Use. Follow up: Private Physician; When: 5 - 6 days; Reason: Recheck today's complaints. Problem is new. Symptoms are unchanged. nh
== END 2018-09-29 13:37 | disposition home or self-care (01) ==
LOC: ER 11:19
DX: H81.49 Vertigo of central origin, unspecified ear (principal); O21.9 Vomiting of pregnancy, unspecified; Z3A.00 Weeks of gestation of pregnancy not specified
CPT/HCPCS: 36415; 80053; 85025; 96361; 96374; 99284; J2405; J7030

== ENCOUNTER 2019-02-09 13:44 | Emergency (ER) | payer OTHER ==
--- OUTSIDE RECORDS SUMMARY | 2019-02-09 13:46 | XMS REPORT ---
:1995 Author Organization [facility] Address [address] [place] [address] Care Team Providers Name Role Phone Unavailable Unavailable Unavailable Problems This patient has no known problems. Allergies, Adverse Reactions, Alerts This patient has no known allergies or adverse reactions. Medications This patient has no known medications.
[2019-02-09 15:12] LABS: Urine Blood NEGATIVE (NEG); Urine Glucose NEGATIVE (NEG); Urine Protein NEGATIVE (NEG)
--- NOTE | 2019-02-09 15:21 | ER ---
Nurse's Notes [facility] Name: Yesica Islas Age: 23 yrs Sex: Female : 1995 Arrival Date: 02/09/2019 Time: 13:46 Bed 16 Private MD: Tj Bravo B Diagnosis: related conditions, unspecified, third trimester Presentation: 02/09 13:52 Presenting complaint: Patient states: Reports episode of dizziness with diaphoresis and aj "seeing black spots" at 1130 this AM. Also reports intermittent left arm numbness for 2 weeks that occurs at night while she is sleeping. Transition of care: patient was not received from another setting of care. Onset of symptoms was February 09, 2019. Risk Assessment: Do you want to hurt yourself or someone else? Patient reports no desire to harm self or others. Initial Sepsis Screen: Does the patient meet any 2 criteria? No. Patient's initial sepsis screen is negative. Does the patient have a suspected source of infection? No. Patient's initial sepsis screen is negative. Care prior to arrival: None. 13:52 Method Of Arrival: Ambulatory 13:52 Acuity: KOFI 3 aj Triage Assessment: 13:53 General: Appears in no apparent distress. comfortable, Behavior is anxious. Pain: aj Denies pain. Neuro: Level of Consciousness is awake, alert, obeys commands, Oriented to person, place, time, situation, Appropriate for age Reports dizziness, numbness in left arm since 2 weeks ago. Respiratory: Airway is patent Respiratory effort is even, unlabored, Respiratory pattern is regular, symmetrical. Derm: Skin is intact, is healthy with good turgor, Skin is pink, warm \\T\\ dry. normal. PHYS THER: 13:53 LMP 07/27/2018 aj Historical: - Allergies: 13:53 No Known Drug Allergies; aj - Home Meds: 13:53 Vitamin Oral tab 1 tab once daily [Active]; aj - PMHx: 13:53 UTI; aj - PSHx: 13:53 None; aj - Immunization history:: Adult Immunizations up to date. - Social history:: Smoking status: Patient/guardian denies using tobacco. - Ebola Screening: : Patient negative for fever greater than or equal to 101.5 degrees Fahrenheit, and additional compatible Ebola Virus Disease symptoms Patient denies exposure to infectious person Patient denies travel to an Ebola-affected area in the 21 days before illness onset No symptoms or risks identified at this time. Screenin:06 Abuse screen: Denies threats or abuse. Nutritional screening: No deficits noted. tw2 Tuberculosis screening: No symptoms or risk factors identified. Fall Risk None identified. Assessment: 14:00 General: Appears in no apparent distress. well groomed, Behavior is calm, cooperative, tw2 appropriate for age. Pain: Denies pain. Neuro: Level of Consciousness is awake, alert, obeys commands, Oriented to person, place, time, situation. Cardiovascular: Denies chest pain, shortness of breath, Heart tones S1 S2 Patient's skin is warm and dry. Respiratory: Airway is patent Respiratory effort is even, unlabored, Respiratory pattern is regular, symmetrical, Breath sounds are clear bilaterally. GI: No signs and/or symptoms were reported involving the gastrointestinal system. Abdomen is round Bowel sounds present X 4 quads. : No signs and/or symptoms were reported regarding the genitourinary system. EENT: No signs and/or symptoms were reported regarding the EENT system. Derm: No signs and/or symptoms reported regarding the dermatologic system. Musculoskeletal: No signs and/or symptoms reported regarding the musculoskeletal system. 15:11 Reassessment: Patient appears in no apparent distress at this time. No changes from tw2 previously documented assessment. Patient and/or family updated on plan of care and expected duration. Pain level reassessed. Patient is alert, oriented x 3, equal unlabored respirations, skin warm/dry/pink. 15:27 Reassessment: Patient appears in no apparent distress at this time. No changes from tw2 previously documented assessment. Patient and/or family updated on plan of care and expected duration. Pain level reassessed. Patient is alert, oriented x 3, equal unlabored respirations, skin warm/dry/pink. Vital Signs: 13:53 BP 136 / 81; Pulse 73; Resp 16; Temp 98.4; Pulse Ox 98% on R/A; Weight 76.2 kg; Height aj 5 ft. 3 in. (160.02 cm); 15:11 BP 119 / 73; Pulse 82; Resp 17; Pulse Ox 100% on R/A; Pain 0/10; tw2 13:53 Body Mass Index 29.76 (76.20 kg, 160.02 cm) Vitals: 15:10 Heart Tones 152 bpm, as well as + movement. tw2 ED Course: 13:46 Patient arrived in ED. as 13:46 Tj Bravo MD is Private Physician. as 13:53 Triage completed. 13:53 Arm band placed on right wrist. Patient placed in an exam room. 13:58 Bed in low position. Call light in reach. Adult w/ patient. youth nutritional monitor on. Pulse tw2 ox on. NIBP on. 14:04 Autumn Dodge, RN is Primary Nurse. tw2 14:16 Waqas Siddiqi MD is Attending Physician. [facility] 15:19 Tj Bravo MD is Referral Physician. [facility] 15:27 No provider procedures requiring assistance completed. Patient did not have IV access tw2 during this emergency room visit. Administered Medications: No medications were administered Outcome: 15:20 Discharge ordered by . [facility] 15:27 Discharged to home ambulatory, with significant other. tw2 15:27 Condition: stable 15:27 Discharge instructions given to patient, significant other, Instructed on discharge instructions, follow up and referral plans. medication usage, Demonstrated understanding of instructions, follow-up care, medications, Prescriptions given X 1. 15:29 Patient left the ED. tw2 Signatures: Neeru Teague, RN RN Waqas Garcia MD MD cha Martinez, Amelia as Autumn Dodge, PIPO RN tw2 Corrections: (The following items were deleted from the chart) 15:12 15:10 Heart Tones 138 bpm, as well as + movement. tw2 tw2 15:13 15:11 Pulse 82bpm; Resp 17bpm; Pulse Ox 100% RA; Pain 0/10; tw2 tw2
--- NOTE | 2019-02-09 15:21 | EDPHYS ---
Physician Documentation [facility] Name: Yesica Islas Age: 23 yrs Sex: Female : 1995 Arrival Date: 02/09/2019 Time: 13:46 Bed 16 Private MD: Tj Bravo B ED Physician Waqas Siddiqi HPI: 02/09 15:10 This 23 yrs old Female presents to ER via Ambulatory with complaints of carli Numbness Of Hand - 35 wks preg. 15:10 The patient or guardian reports swelling. carli CALL OUT CLERK: 13:53 LMP 07/27/2018 aj Historical: - Allergies: 13:53 No Known Drug Allergies; aj - Home Meds: 13:53 Vitamin Oral tab 1 tab once daily [Active]; aj - PMHx: 13:53 UTI; aj - PSHx: 13:53 None; aj - Immunization history:: Adult Immunizations up to date. - Social history:: Smoking status: Patient/guardian denies using tobacco. - Ebola Screening: : Patient negative for fever greater than or equal to 101.5 degrees Fahrenheit, and additional compatible Ebola Virus Disease symptoms Patient denies exposure to infectious person Patient denies travel to an Ebola-affected area in the 21 days before illness onset No symptoms or risks identified at this time. ROS: 15:18 Constitutional: Negative for fever, chills, and weight loss, Eyes: Negative for injury, carli pain, redness, and discharge, ENT: Negative for injury, pain, and discharge, Neck: Negative for injury, pain, and swelling, Cardiovascular: Negative for chest pain, palpitations, and edema, Respiratory: Negative for shortness of breath, cough, wheezing, and pleuritic chest pain, Back: Negative for injury and pain, : Negative for injury, bleeding, discharge, and swelling, MS/Extremity: Negative for injury and deformity, Skin: Negative for injury, rash, and discoloration, Neuro: Negative for headache, weakness, numbness, tingling, and seizure, Psych: Negative for depression, anxiety, suicide ideation, homicidal ideation, and hallucinations, Allergy/Immunology: Negative for hives, rash, and allergies, Endocrine: Negative for neck swelling, polydipsia, polyuria, polyphagia, and marked weight changes, Hematologic/Lymphatic: Negative for swollen nodes, abnormal bleeding, and unusual bruising. 15:18 Abdomen/GI: Positive for abdominal distension, of the right upper quadrant, left upper quadrant, right lower quadrant and left lower quadrant. Exam: 15:18 Constitutional: This is a well developed, well nourished patient who is awake, alert, carli and in no acute distress. Head/Face: Normocephalic, atraumatic. Eyes: Pupils equal round and reactive to light, extra-ocular motions intact. Lids and lashes normal. Conjunctiva and sclera are non-icteric and not injected. Cornea within normal limits. Periorbital areas with no swelling, redness, or edema. ENT: Nares patent. No nasal discharge, no septal abnormalities noted. Tympanic membranes are normal and external auditory canals are clear. Oropharynx with no redness, swelling, or masses, exudates, or evidence of obstruction, uvula midline. Mucous membranes moist. Neck: Trachea midline, no thyromegaly or masses palpated, and no cervical lymphadenopathy. Supple, full range of motion without nuchal rigidity, or vertebral point tenderness. No Meningismus. Chest/axilla: Normal chest wall appearance and motion. Nontender with no deformity. No lesions are appreciated. Cardiovascular: Regular rate and rhythm with a normal S1 and S2. No gallops, murmurs, or rubs. Normal PMI, no JVD. No pulse deficits. Respiratory: Lungs have equal breath sounds bilaterally, clear to auscultation and percussion. No rales, rhonchi or wheezes noted. No increased work of breathing, no retractions or nasal flaring. Abdomen/GI: Soft, non-tender, with normal bowel sounds. No distension or tympany. No guarding or rebound. No evidence of tenderness throughout. Back: No spinal tenderness. No costovertebral tenderness. Full range of motion. Skin: Warm, dry with normal turgor. Normal color with no rashes, no lesions, and no evidence of cellulitis. MS/ Extremity: Pulses equal, no cyanosis. Neurovascular intact. Full, normal range of motion. Neuro: Awake and alert, GCS 15, oriented to person, place, time, and situation. Cranial nerves II-XII grossly intact. Motor strength 5/5 in all extremities. Sensory grossly intact. Cerebellar exam normal. Normal gait. Psych: Awake, alert, with orientation to person, place and time. Behavior, mood, and affect are within normal limits. 15:18 Abdomen/GI: Inspection: gravid appearance, is noted, Bowel sounds: normal, Palpation: abdomen is soft and non-tender, Liver: no appreciated palpable abnormalities, Hernia: not appreciated. Vital Signs: 13:53 BP 136 / 81; Pulse 73; Resp 16; Temp 98.4; Pulse Ox 98% on R/A; Weight 76.2 kg; Height aj 5 ft. 3 in. (160.02 cm); 15:11 BP 119 / 73; Pulse 82; Resp 17; Pulse Ox 100% on R/A; Pain 0/10; tw2 13:53 Body Mass Index 29.76 (76.20 kg, 160.02 cm) aj [facility]: 14:16 Patient medically screened. [facility] 15:19 Data reviewed: vital signs, nurses notes, lab test result(s), urinalysis, radiologic [facility] studies. 02/09 15:09 Order name: Urine Dipstick--Ancillary (enter results) em1 02/09 14:22 Order name: Urine Dipstick-Ancillary (obtain specimen); Complete Time: 15:08 [facility] 02/09 14:22 Order name: FHT's; Complete Time: 15:09 [facility] Administered Medications: No medications were administered Disposition: 02/09/19 15:20 Discharged to Home. Impression: related conditions, unspecified, third trimester. - Condition is Stable. - Discharge Instructions: Edema, Edema, Vhqg-ck-Fjai, Third Trimester of , Yjcq-um-Pguj. - Prescriptions for Vitamin 27- 0.8 mg Oral Tablet - take 1 tablet by ORAL route once daily; 30 tablet. - Medication Reconciliation Form, Thank You Letter, Antibiotic Education, Prescription Opioid Use form. - Follow up: Tj Bravo MD; When: 2 - 3 days; Reason: Recheck today's complaints, Continuance of care, Re-evaluation by your physician. - Problem is new. - Symptoms have improved. Signatures: Dispatcher [employer] Neeru Mills RN RN Waqas Garcia MD MD cha Wise, Tara, RN RN tw2 Corrections: (The following items were deleted from the chart) 15:29 15:20 02/09/2019 15:20 Discharged to Home. Impression: related conditions, tw2 unspecified, third trimester. Condition is Stable. Forms are Medication Reconciliation Form, Thank You Letter, Antibiotic Education, Prescription Opioid Use. Follow up: Tj Bravo; When: 2 - 3 days; Reason: Recheck today's complaints, Continuance of care, Re-evaluation by your physician. Problem is new. Symptoms have improved. carli
== END 2019-02-09 15:29 | disposition home or self-care (01) ==
LOC: ER 13:44
DX: O26.893 Other specified pregnancy related conditions, third trimester (principal); Z3A.35 35 weeks gestation of pregnancy
CPT/HCPCS: 81003; 99284

== ENCOUNTER 2019-02-26 12:23 | Inpatient (IN) | payer OTHER ==
--- OUTSIDE RECORDS SUMMARY | 2019-03-05 15:43 | XMS REPORT ---
:1995 [facility] [address] [place] [address] Care Team Providers Name Role Phone Unavailable Unavailable Unavailable Problems This patient has no known problems. Allergies, Adverse Reactions, Alerts This patient has no known allergies or adverse reactions. Medications This patient has no known medications.
[2019-03-05] MEDS ORDERED: Ringers Lactate 1,000 ML IV PRN (16:24)
[2019-03-05 16:47] LABS: Absolute Lymphocytes (CBC) 2.1 K/uL (0.7-4.9); Absolute Monocytes 0.3 K/uL (0.1-1.3); Absolute Neutrophil 5.7 K/uL (1.8-8.0); Basophils % 0.4 % (0-1.3); Eosinophils % 0.3 % (0-4.4); Hematocrit 37.9 % (36.0-45.0); Lymphocytes % 25.7 % (15.3-44.8); MPV 13.3 fL (7.6-11.3); RBC Red Blood Cell Count 4.38 M/uL (3.86-4.86)
[2019-03-05 16:51] LABS: Urine Appearance CLEAR; Urine Bilirubin NEGATIVE (NEG); Urine Blood NEGATIVE (NEG); Urine Color YELLOW; Urine Glucose NEGATIVE (NEG); Urine Protein TRACE (NEG); Urine Specific Gravity 1.025 (1.005-1.030); Urine pH 7.5 (5.0-7.0)
[2019-03-05 16:54] LABS: Urine Microscopic Reflex ORDER UMIC
[2019-03-05 16:59] LABS: RPR Titer ND
[2019-03-05] MEDS ORDERED: Ringers Lactate 1,000 ML IV SCH (17:00)
[2019-03-05] MEDS ORDERED: OXYTOCIN/LR 20 UNIT/1,000 ML BAG IV SCH (17:00)
[2019-03-05] MEDS ORDERED: miSOPROStol 100 MCG TAB VAG SCH (17:00)
[2019-03-05 17:04] LABS: Urine Bacteria <20 /HPF (<20); Urine Culture Reflex Order NOT NEEDED; Urine Mucus 1+ /HPF (NONE SEEN); Urine RBC NONE SEEN /HPF (NONE SEEN)
[2019-03-05] MEDS ORDERED: ZOLPIDEM TARTRATE 5 MG TABLET PO PRN (20:35)
[2019-03-05] MEDS ORDERED: PROMETHAZINE 25 MG/ML VIAL IM ONE (20:44)
[2019-03-05] MEDS ORDERED: BUTORPHANOL 1 MG/ML INJ IV ONE (20:44)
[2019-03-05 21:25] LABS: RPR (Rapid Plasma Reagin) NON-REACT (NON-REACT)
[2019-03-06] MEDS ORDERED: PROMETHAZINE 25 MG/ML VIAL IM PRN (02:56)
[2019-03-06] MEDS ORDERED: BUTORPHANOL 1 MG/ML INJ IV PRN (02:56)
[2019-03-06] MEDS ORDERED: FENTANYL CITR 100 MCG/2 ML IV ONE (06:22)
[2019-03-06] MEDS ORDERED: FENTANYL/BUPIVACAINE/NS/PF 200 MCG/100 ML BAG EP PRN (06:22)
[2019-03-06] MEDS ORDERED: ROPIVACAINE HCL 0.2% 20ML AMP SQ ONE (08:00)
[2019-03-06] MEDS ORDERED: ROPIVACAINE HCL 100 ML IV ONE (08:03)
--- NOTE | 2019-03-06 08:28 | PREOPHP ---
Date of Admission: 03/05/2019 A 23-year-old primigravida, 39 weeks. 1 cm 50%, -1 station vertex. Pros and cons of Cytotec ny hly discussed in my office including increased risk for . The patient wishes to proceed with cervical ripening and labor induction. We will put in 50 mcg of Cytotec q.6 hours x3 doses and then start oxytocin in the morning. Full admission talk given. Rh positive, immune to Rubella. Negativ e beta strep screen. NBC/MODL Voice ID: [id number]
[2019-03-06] MEDS ORDERED: NA CIT/CITRIC AC 30 ML ORAL UDC ONE (08:40)
[2019-03-06] MEDS ORDERED: METOCLOPRAMIDE 10 MG/2mL INJ ONE (08:40)
[2019-03-06] MEDS ORDERED: CEFAZOLIN/SWI 2gm 0 GM/0 ML SYR ONE (08:40)
[2019-03-06] MEDS ORDERED: FAMOTIDINE 20 MG/2 ML VIAL IV ONE (08:40)
[2019-03-06] MEDS ORDERED: LIDOCAINE 2% W/EPI 1:200,000 MPF 20 ML VIAL IM ONE (08:41)
[2019-03-06] MEDS ORDERED: OXYTOCIN 10 UNIT/ML ML IV ONE ×2 (09:00→09:33)
[2019-03-06] MEDS ORDERED: MORPHINE SULFATE/PF 1 MG/ML (10 ML AMP) ONE (09:02)
[2019-03-06] MEDS ORDERED: ONDANSETRON 4 MG (ODT) TAB PO PRN (09:22)
[2019-03-06] MEDS ORDERED: ONDANSETRON 4 MG/2 ML VIAL IV PRN (09:22)
[2019-03-06] MEDS ORDERED: Oxycodone HCl/Acetaminophen 1 TAB TAB PO PRN (09:22)
[2019-03-06] MEDS ORDERED: ACETAMINOPHEN 500 MG TAB PO PRN ×2 (09:22)
[2019-03-06] MEDS ORDERED: KETOROLAC 30 MG/ML INJ IV PRN (09:22)
[2019-03-06] MEDS ORDERED: CEFAZOLIN 1GM (PREMIX IV) 50 ML IV ONE (09:22)
[2019-03-06] MEDS ORDERED: KETOROLAC 30 MG/ML INJ IM PRN (09:22)
[2019-03-06] MEDS ORDERED: BISACODYL 10 MG RECTAL SUPP RECT PRN (09:22)
[2019-03-06] MEDS ORDERED: DIPHENHYDRAMINE 25 MG TAB/CAP PO PRN (09:22)
[2019-03-06] MEDS ORDERED: D5LR 1,000 ML with OXYTOCIN 20 UNIT IV SCH ×2 (10:00)
--- NOTE | 2019-03-06 11:39 | PN ---
The patient has responded quite well to Cytotec. No Pitocin was started. She is having regular cont ractions every 1 and half to 2 minutes. Baby looks good. Rupture of membranes, clear fluid. She is 2 cm 70-80% effaced, vertex, -1 station well applied to the cervix. She has had 2 doses of Stadol a t this point. Pros and cons of epidural at this point but if she wants one all she has to do tell th e nurses and we will order the epidural from Anesthesia. Full labor talk given to the patient and fa eh members. CASTILLO/XIANG Voice ID: [id number] Report ID: [id number]
--- NOTE | 2019-03-06 11:39 | PN ---
The patient has had good variability the entire labor. Rupture of membranes showed clear fluid but s he is shivering quite a bit which makes the external monitor a little bit less reliable, I put on a s calp electrode. The patient is now 2.5 cm. She is being hydrated. Epidural anesthesia is pending. Once she relaxes and shivering slows down, I think we will get a better tracing but right now there is still good iwyr-ud-ugus variability with no major decelerations. CASTILLO/XIANG Voice ID: [id number] Report ID: [id number]
--- NOTE | 2019-03-06 12:25 | PN ---
The baby is having deceleration still has good sozi-er-qiyk but the decelerations are very unusual an d prolonged. Full discussion with patient's family. We decided to proceed with . Infection , blood loss, anesthetic complications, injury to bladder, bowel, ureter, postoperative complications , clots in legs, and pneumonia discussed. The patient knows fully this does not constitute all the p ossible problems that could occur. Dr. Medrano is here. She has epidural comfortable. We will use that. Mcat Tutor will be notified. Chairman And Ceo surgeon notified and we are proceeding expeditiously. CASTILLO/XIANG Voice ID: [id number] Report ID: [id number]
[2019-03-06 15:57] VITALS: O2SAT 99
--- NOTE | 2019-03-06 16:01 | OP ---
Surgeon: Tj Bravo MD Ms. Islas is a 23-year-old primigravida, had Cytotec inserted last night, and during the night went i nto a very active labor pattern. This morning 2 to 2.5 cm, rupture of membranes, clear fluid. The p atient had 2 mg of Stadol 1 mg increments, and Phenergan at 2.5 cm, requested epidural anesthesia. F ull discussion, and epidural anesthesia was performed. Slightly before the epidural anesthesia, baby began to have unusual decelerations with marked swings in the heart beat. Fluid remained clear at t hat point. It was decided to proceed with section. Infection, blood loss, anesthetic compl ications, injury to bladder, bowel, ureter, postoperative complications, clots in legs, and pneumonia discussed. The patient knows fully well this does not constitute all possible problems that could o ccur during or following surgery. Dr. Medrano had inserted the epidural and it worked quite well for dong. The patient was taken to surgery, placed on table. Prepping and draping was performed. Josesito eout was performed. Two grams of Ancef were ordered for prophylaxis. Dr. Donato assistance surgeon, Dr. Tena for Pediatrics. Low-transverse incision created. Incision was carried to fascia. The fascia incised and incision carried transversely bilaterally with Mcelroy scissors. Anterior fascial pl ane developed with both blunt and sharp dissection, underlying rectus muscle was . Peritone um entered bluntly. Low transverse uterine incision created. Pshm-lr-prjebeoy meconium noted. A ma le infant was delivered without difficulties. Apgars in the 8 to 9 range at 1 minute, 9 at 5 minutes . No suspicion of meconium aspiration. Cord blood was obtained. Placenta was removed manually. Ut erus cleared of clot and blood and exteriorized. A 0.2 mg of Methergine ordered for prophylaxis, as she had been long labor and anticipated hypotonus, very mild hypotonus noted. Estimated blood loss d uring procedure 850 cc. Uterus closed with a running locked stitch of 1 chromic followed by imbricat ing stitch with 1 chromic. Small bleeders were fulgurated around the bladder flap. Gutters cleared of clot and blood. Uterus was replaced in the peritoneal cavity. Inspection of the suture line show ed no further bleeding. Muscles closed with 0 Vicryl interrupted sutures. The fascia closed with 1 Vicryl running from either angle to the midline. Subcutaneous tissue closed with 2-0 plain. Absorba ble arnold placed and then metal arnold. The patient tolerated all procedures well. Transferred b ack to her room in good condition. Final Diagnoses: Term intrauterine . Cytotec for labor induction. Nonreassuring hea rt tones. Primary section. Epidural anesthesia. Mild uterine hypotonus. CASTILLO/XIANG Voice ID: [id number] Report ID: [id number]
[2019-03-06] MEDS ORDERED: Ringers Lactate 1,000 ML IV ONE (16:27)
[2019-03-06] MEDS ORDERED: CEFAZOLIN/SWI 1gm 1 GM/10 ML SYR IV ONE (17:00)
[2019-03-06] MEDS: OXYTOCIN/LR 20 UNIT/1,000 ML BAG IV SCH (19:45)
[2019-03-07] MEDS: OXYTOCIN/LR 20 UNIT/1,000 ML BAG IV SCH (03:00)
[2019-03-07] MEDS ORDERED: CEFAZOLIN/SWI 2gm 0 GM/0 ML SYR ONE (03:08)
--- NOTE | 2019-03-07 08:32 | PN ---
The patient has only a lip of cervix and can push pretty well, but she is completely unaware of her c ontractions and is having hard time moving her legs. We will cut back the maintenance dose from 8 to 6 and probably further if we need to. We are going to catheterize her as she has a significant amou nt of urine when she is pushing and I think the bladder may be holding things up a little bit since i t is full. If she can feel a little bit when the contractions come, I think we can affect delivery r elatively soon. CASTILLO/XIANG Voice ID: [id number] Report ID: [id number]
[2019-03-07] MEDS: Oxycodone HCl/Acetaminophen 1 TAB TAB PO PRN ×2 (08:54→23:28)
[2019-03-07] MEDS ORDERED: MAGNESIUM HYDROXIDE 8% 30 ML PO PRN (09:22)
--- NOTE | 2019-03-07 12:08 | PN ---
Postoperatively the patient has done quite well. H and H with minimal change. Output is good. We w ill discontinue her Pal and IV. Postoperative talk given. She stress to ambulated. If all goes w ell, we will send her home tomorrow. She is to call the office today and make an appointment to come see me next week but we will go over that again tomorrow. No post epidural problems at this point. CASTILLO/XIANG Voice ID: [id number] Report ID: [id number]
[2019-03-07] MEDS: IBUPROFEN 200 MG TAB PO PRN (13:48)
[2019-03-08] MEDS: Oxycodone HCl/Acetaminophen 1 TAB TAB PO PRN (04:02)
[2019-03-08] MEDS: IBUPROFEN 200 MG TAB PO PRN (06:55)
[2019-03-08 08:41] VITALS: BP 115/67
[2019-03-08 10:04] VITALS: TEMP 98.2
--- NOTE | 2019-03-08 13:16 | DS ---
Date of Discharge: 03/08/2019 A 23-year-old primigravida, 39 weeks 1 day at time of delivery. Had Cytotec inserted the day before delivery, and went into a very active labor pattern. Pitocin was not needed. Rupture of membranes w as performed the next morning. Clear fluid obtained. During the labor, the patient experienced nonr eassuring heart tones, and it was decided to proceed with section. Infection, blood l oss, anesthetic complications, injury to bladder, bowel, ureter, postoperative complications, clots i n legs, and pneumonia were discussed. The patient knows fully well this does not constitute all the possible problems that could occur during or following surgery. Had epidural anesthesia, which worke d quite effectively, was delivered of a 7-pound 4-ounce male , Apgars 9 and 9. An 850 cc blood loss. Mild uterine hypotonus, 0.2 mg of Methergine administered IM prophylactically as the patient was not bleeding substantially but had a labor that was conducive to uterine hypotonus. Ancef 2 g gi saeed prophylactically and 1 g 8 hours postop. Can Reconditioner in attendance Dr. Tena. Postoperative ly, the patient has done well, is ambulating and voiding. Lochia is normal. Incision looks good. L ast night she had a temperature elevation of 100.9, but the nurse taking care of the patient said the room was very hot and the patient was covered up in covers. She uncovered the patient and temperatu res have come back down to normal. Nonetheless, we will keep the patient for a few extra hours and t khoi her temperature several more times. If any temperature exceeds 100 or more, we will keep the pat ient for another 24 hours. She was instructed to report any temperature elevation at home, when she goes home later today. Then, at that point, we will probably start her on antibiotics. I think righ t now though, it is probably mild dehydration and the hot room and patient being covered up. She has no breast engorgement and no pulmonary problems. Final Diagnoses: Intrauterine gestation, 39 weeks 1 day, non-reassuring heart tones, primary c esarean section, epidural anesthesia, mild uterine hypotonus. NBC/MODL Voice ID: [id number] Report ID: [id number]
[2019-03-09 18:20] LABS: HBsAG Nonreactive (Nonreactive)
== END 2019-03-08 10:40 | disposition home or self-care (01) | DRG 788 ==
LOC: 2ND-WC 03-05 15:40
PROVIDERS: ADMIT Specialist; ATTEND Specialist
PROC: 3E0P7VZ Introduction of Hormone into Female Reproductive, Via Natural or Artificial Opening (ICD-10-PCS; 2019-03-05)
PROC: 10907ZC Drainage of Amniotic Fluid, Therapeutic from Products of Conception, Via Natural or Artificial Opening (ICD-10-PCS; 2019-03-05)
PROC: 10D00Z1 Extraction of Products of Conception, Low, Open Approach (ICD-10-PCS; principal; 2019-03-06 08:35)
DX: O76 Abnormality in fetal heart rate and rhythm complicating labor and delivery (principal); O62.2 Other uterine inertia; Z3A.39 39 weeks gestation of pregnancy; Z37.0 Single live birth
CPT/HCPCS: 36415; 81003; 81015; 85014; 85025; 86592; 86850; 86900; 86901; 87340; 88307; J0595; J0690; J2550; J2590; J2765; J2795; J3010

== ENCOUNTER 2019-03-08 13:01 | Inpatient (IN) | payer OTHER ==
--- OUTSIDE RECORDS SUMMARY | 2019-03-08 13:03 | XMS REPORT ---
:1995 [facility] [address] [place] [address] Care Team Providers Name Role Phone Unavailable Unavailable Unavailable Problems This patient has no known problems. Allergies, Adverse Reactions, Alerts This patient has no known allergies or adverse reactions. Medications This patient has no known medications.
[2019-03-08 13:28] LABS: Absolute Lymphocytes (CBC) 0.8 K/uL (0.7-4.9); Absolute Monocytes 0.7 K/uL (0.1-1.3); Absolute Neutrophil 10.5 K/uL (1.8-8.0); Basophils % 0.4 % (0-1.3); Eosinophils % 0.1 % (0-4.4); Hematocrit 33.9 % (36.0-45.0); Lymphocytes % 6.8 % (15.3-44.8); MPV 11.3 fL (7.6-11.3); Monocytes % 5.5 % (3.3-12.3); RBC Red Blood Cell Count 3.93 M/uL (3.86-4.86)
[2019-03-08 13:29] LABS: Urine Appearance CLEAR; Urine Bilirubin NEGATIVE (NEG); Urine Blood NEGATIVE (NEG); Urine Color YELLOW; Urine Glucose NEGATIVE (NEG); Urine Protein NEGATIVE (NEG); Urine pH 7.5 (5.0-7.0)
[2019-03-08 13:46] LABS: Urine Bacteria <20 /HPF (<20); Urine Culture Reflex Order NOT NEEDED; Urine RBC <5 /HPF (NONE SEEN)
[2019-03-08] MEDS ORDERED: KETOROLAC 30 MG/ML INJ IV PRN (13:48)
[2019-03-08] MEDS ORDERED: Oxycodone HCl/Acetaminophen 1 TAB TAB PO PRN (13:49)
[2019-03-08 14:29] VITALS: BMI 30.9
--- NOTE | 2019-03-08 14:36 | RAD REPORT ---
EXAM DESCRIPTION: Lisandra Single View03/08/2019 2:17 pm CLINICAL HISTORY: fever COMPARISON: none FINDINGS: Both lung bases are hazy Upper lobes appear clear The heart is normal size IMPRESSION: Both lung bases are hazy suspicious for bilateral pneumonia. As overlying soft tissue c an also result in this appearance PA and lateral chest series recommended
[2019-03-08 14:47] LABS: Blood Morphology Comment NOT SEEN (NOT SEEN); Platelet Estimate ADEQ; Urine White Blood Cell Casts OK
[2019-03-08] MEDS: AMPICILLIN SODIUM 1 GM in NA CHLORIDE 0.9% 100 ML IVPB SCH ×2 (15:00→21:00)
[2019-03-08] MEDS: Ringers Lactate 1,000 ML IV SCH (15:00)
[2019-03-08] MEDS: Oxycodone HCl/Acetaminophen 1 TAB TAB PO PRN ×2 (15:30→21:19)
[2019-03-08] MEDS: CLINDAMYCIN PHOSPHATE 900 MG in NA CHLORIDE 0.9% 50 ML IV SCH ×2 (15:30→23:30)
--- NOTE | 2019-03-08 17:04 | PREOPHP ---
Date of Admission: 03/08/2019 The patient had been dismissed from the hospital after , had 1 temperature elevation last ni ght of 100.9, which was not informed but all temperatures since then were normal. All of them actual ly under 99. The patient was told to report any temperature elevation of 100 degrees or more. Withi n 3 hours of riding home were temperature was 102. She came back to the hospital for re-evaluation, temperature is now 103. Her lungs are clear. Her breasts are soft. The incision looks good. There is no tenderness in her calves or her legs. Fundus is not really tender, but possibly mildly so. W e will get a CBC, urinalysis. We started an IV. We will give patient ampicillin 1 g q.6 hours, clin damycin 900 mg q.8 hours. Get a CBC again tomorrow morning at 5 a.m. Full discussion with patient a nd family. She is to hydrate and ambulate. She apparently was adverse ambulation during her time he re in the hospital according to the nurse's. However, her legs are clear and she is not having any b reathing difficulties. So, I do not think we are dealing with thrombophlebitis and embolus. Chest x -ray has been ordered also just to make sure she does not have atelectasis. Breast as describes soft . The patient is hot and flushed. Heart and lungs are clear. Incision looks good. Extremities are clear as stated. Probable endometritis, although, full work up underway and antibiotics have been s tarted. CASTILLO/XIANG Voice ID: [id number]
[2019-03-08 17:31] LABS: BUN Blood Urea Nitrogen 7 mg/dL (7-18); Bicarbonate 22 mmol/L (21-32); Glucose Level 80 mg/dL (74-106); Potassium 3.5 mmol/L (3.5-5.1); Sodium Level 137 mmol/L (136-145)
[2019-03-08] MEDS ORDERED: AMPICILLIN SODIUM 1 GM/VIAL IVPB SCH (18:00)
--- NOTE | 2019-03-08 18:27 | P.CNS ---
Date of Consult: 03/08/19 Reason for Consult: Fever, pneumonia Requesting Physician: Joycelyn Bravo Chief Complaint: Fever History of Present Illness: This is a 23-year-old female with past medical history, discharged this morning after a who was admitted for fever. Patient started with low-grade fevers yesterday, was discharged this morning with 3 normal temperatures. She returned to the hospital this afternoon with fever, was found to have a temperature of 103. A chest x-ray was done which was positive for bilateral pneumonia. WBC count slightly elevated at 12. Otherwise she is not also tachycardic. We were consulted for antibiotic management for the pneumonia. At the time of my exam, patient was alert oriented x3, in no acute distress and hemodynamically stable. Allergies No Known Drug Allergies Allergy (Verified 11/12/18 09:53) Unknown No Known Allergies Allergy (Uncoded 02/21/16 11:59) Unknown Home medications list reviewed: Yes Home Medications: Cmb#95/Iron/FA/Dha [ + Dha Combo Pack] 1 each PO DAILY Tramadol HCl [Ultram] 50 mg PO Q6HR #35 tablet 03/08/19 - Past Medical/Surgical History Diabetic: No - Social History Smoking Status: Current some day smoker Alcohol use: No CD- Drugs: No Caffeine use: Yes Place of Residence: Home Review of Systems 10-point ROS is otherwise unremarkable Physical Examination Temp Pulse Resp BP Pulse Ox 101.5 F H 104 H 18 151/78 H 03/08/19 16:45 03/08/19 16:45 03/08/19 16:45 03/08/19 16:45 General: Alert, In no apparent distress, Oriented x3 HEENT: Atraumatic, PERRLA, Mucous membr. moist/pink, EOMI, Sclerae nonicteric Neck: Supple, 2+ carotid pulse no bruit, No LAD, Without JVD or thyroid abnormality Respiratory: Clear to auscultation bilaterally, Normal air movement Cardiovascular: Regular rate/rhythm, Normal S1 S2 Gastrointestinal: Normal bowel sounds, No tenderness Musculoskeletal: No tenderness Integumentary: No rashes, Other (Incision site clean, dry and intact. No evidence of infection at this time) Neurological: Normal gait, Normal speech, Normal tone, Normal affect Lymphatics: No axilla or inguinal lymphadenopathy Laboratory Data (last 24 hrs) 03/08/19 13:14: Sodium 137, Potassium 3.5, BUN 7, Creatinine 0.62, Glucose 80 03/08/19 13:14: WBC 12.0 H D, Hgb 11.3 L, Hct 33.9 L, Plt Count 185 - Problems (1) Bilateral pneumonia Current Visit: Yes Status: Acute Qualifiers: Pneumonia type: due to unspecified organism (2) Status post Current Visit: Yes Status: Acute (3) Tachycardia Current Visit: Yes Status: Acute Conclusions/Impression: Possibly secondary to anesthesia during versus hospital-acquired Currently on ampicillin and clindamycin. We will continue the antibiotics for now. Repeat chest x-ray tomorrow, two view. Encourage incentive spirometry use Monitor vital signs overnight. If continues to have fever, may check lactic acid and pro calcitonin Currently meets SIRS criteria with a source for pneumonia. Continue to monitor for sepsis Time Spent Managing Pts care (In Minutes): 45
[2019-03-08] MEDS ORDERED: Ringers Lactate 1,000 ML IV SCH (20:00)
[2019-03-08] MEDS ORDERED: D5LR IV ONE (21:28)
[2019-03-08] MEDS: D5LR 1,000 ML IV SCH (21:30)
[2019-03-09 00:20] LABS: Barbiturates NEGATIVE (NEGATIVE); Benzodiazepines NEGATIVE (NEGATIVE); Cocaine NEGATIVE (NEGATIVE); METHAMPHETAM NEGATIVE (NEGATIVE); Methadone NEGATIVE (NEGATIVE); Opiates NEGATIVE (NEGATIVE); Phencyclidine NEGATIVE (NEGATIVE); THC Cannibis NEGATIVE (NEGATIVE)
[2019-03-09] MEDS: AMPICILLIN SODIUM 1 GM in NA CHLORIDE 0.9% 100 ML IVPB SCH ×2 (03:00→10:00)
[2019-03-09] MEDS: Oxycodone HCl/Acetaminophen 1 TAB TAB PO PRN ×2 (04:25→11:52)
[2019-03-09 05:05] LABS: Hematocrit 31.8 % (36.0-45.0); RBC Red Blood Cell Count 3.72 M/uL (3.86-4.86)
[2019-03-09 05:06] LABS: Absolute Monocytes 0.7 K/uL (0.1-1.3); Absolute Neutrophil 8.6 K/uL (1.8-8.0); Basophils % 0.3 % (0-1.3); Lymphocytes % 9.7 % (15.3-44.8); MPV 11.9 fL (7.6-11.3); Monocytes % 6.7 % (3.3-12.3)
[2019-03-09] MEDS: CLINDAMYCIN PHOSPHATE 900 MG in NA CHLORIDE 0.9% 50 ML IV SCH (07:30)
[2019-03-09] MEDS ORDERED: CLINDAMYCIN 900MG/D5W 900 MG/50 ML IVPB IV ONE (07:54)
--- NOTE | 2019-03-09 08:30 | RAD REPORT ---
EXAM DESCRIPTION: RAD - Chest Pa And Lat (2 Views) - 03/09/2019 6:20 am CLINICAL HISTORY: pneumonia COMPARISON: March 08 TECHNIQUE: PA and lateral views of the chest were obtained. FINDINGS: The lungs are normal volume. Hazy opacification at the left base has substantially improve d. Minimal right base infiltrate or atelectasis remains. No progressive process. No pulmonary edema o r volume overload findings. Heart size is normal and central vasculature is within normal limits. No pleural effusion or pneumothorax seen. No acute bony finding noted. No aortic abnormality. IMPRESSION: Partial clearing of the left lung base. Minimal stranding in the right lung base has not changed. No pulmonary edema.
[2019-03-09] MEDS ORDERED: AMPICILLIN SODIUM 250 MG/VIAL IV SCH (13:00)
--- NOTE | 2019-03-09 13:08 | P.PN ---
Subjective Date of Service: 03/09/19 Chief Complaint: Fever Patient seen and examined at bedside. at bedside. Chart reviewed and case discussed with nursing staff. Patient without any complaints of CP, SOB, cough, congestion, urinary complaints. Complains of mild-moderate incision pain. Vaginal bleeding less than period blood. Ambulating without concerns. tolerating PO Febrile to 102 overnight, sinus tachycardia. Review of Systems 10-point ROS is otherwise unremarkable Physical Examination - Vital Signs Temperature: 98.6 F Blood Pressure: 136/80 Pulse: 102 Respirations: 18 Pulse Ox (%): 99 - Physical Exam General: Alert, In no apparent distress, Oriented x3 HEENT: Atraumatic, PERRLA, EOMI Neck: Supple, JVD not distended Respiratory: Clear to auscultation bilaterally, Normal air movement Cardiovascular: Normal S1 S2, Irregular heart rate/rhythm (Tachycardia) Gastrointestinal: Normal bowel sounds, No tenderness Musculoskeletal: No tenderness Integumentary: No rashes, Other (Incision site: no erythema, warmth) Neurological: Normal speech, Normal tone, Normal affect Lymphatics: No axilla or inguinal lymphadenopathy - Studies Laboratory Data (last 24 hrs) 03/09/19 04:24: WBC 10.4, Hgb 10.8 L, Hct 31.8 L, Plt Count 174 03/08/19 13:14: Sodium 137, Potassium 3.5, BUN 7, Creatinine 0.62, Glucose 80 03/08/19 13:14: WBC 12.0 H D, Hgb 11.3 L, Hct 33.9 L, Plt Count 185 Microbiology Data (last 24 hrs): 03/08/19 18:05 Nasopharnyx Influenza Type A Antigen Screen - Final 03/08/19 18:05 Nasopharnyx Influenza Type B Antigen Screen - Final Assessment And Plan - Current Problems (Diagnosis) (1) Bilateral pneumonia Current Visit: Yes Status: Acute Qualifiers: Pneumonia type: due to unspecified organism (2) Status post Current Visit: Yes Status: Acute (3) Tachycardia Current Visit: Yes Status: Acute (4) fever Current Visit: Yes Status: Acute - Plan DDx: PNA, endometritis, abscess, Viral URI Patient continues to spike fevers along with tachycardia despite being on antibiotics. Antibiotics adjusted to ampicillin, gentamycin and flagyl to add broader coverage. CT abdomen WO contrast ordered to evaluate further Pelvic ultrasound ordered. Clinically, patient with mild - mod incision pain, no evidence of infection at incision site. Otherwise no complaints. Continue monitoring vital sings and for evidence of sepsis.
[2019-03-09] MEDS: D5LR 1,000 ML IV SCH (13:09)
[2019-03-09] MEDS ORDERED: GENTAMICIN 80 MG/100 ML BAG 80 MG/100 ML BAG IV SCH ×2 (15:00→16:00)
[2019-03-09] MEDS: METRONIDAZOLE 500mg IVPB 500 MG/100 ML BAG IV SCH ×2 (15:15→21:00)
--- NOTE | 2019-03-09 15:24 | RAD REPORT ---
EXAM DESCRIPTION: CT - Abdomen Pelvis Wo Contrast - 03/09/2019 2:27 pm CLINICAL HISTORY: Fever of unknown origin, 3 days COMPARISON: CT study July 2017 TECHNIQUE: Axial [address] imaging of the abdomen and pelvis was performed without IV contrast. No IV contrast was given because of allergy, abnormal renal function, patient refusal or physician re quest. No oral contrast. All CT scans are performed using dose optimization technique as appropriate and may include automated exposure control or mA/KV adjustment according to patient size. FINDINGS: No infiltrate in either lung base. No pleural effusion. No cardiomegaly present. There is no pericardial thickening or pericardial effusion. The liver, spleen and pancreas show no suspicious findings on non-contrast imaging. Gallbladder and b iliary tree are also without suspicious finding. No hydronephrosis or suspicious renal mass. No significant adrenal finding. Isodense renal masses an d pyelonephritis cannot be excluded in the absence of IV contrast. The urinary bladder is without sig nificant finding. Enlarged uterus is present not unexpected for the 3 day post history. Heterogeneity along t he endometrial cavity is also not unexpected. This is typical for endometrial remnant tissue an blood products. No air within the endometrial cavity. Postsurgical changes are present in the lower abdomi nal soft tissues related to . Findings are not outside of normal for this surgical procedure . No dilated bowel loops or bowel wall thickening. No free air, free fluid or inflammatory stranding. N o hernia, mass or bulky lymphadenopathy. No CT findings to support appendicitis. No suspicious bony findings. IMPRESSION: Non-contrast enhanced CT abdomen and pelvis imaging show no significant or suspicious fi nding. The above detailed findings are not outside of normal for a patient only 3 days status post . Full assessment is limited is the absence of IV contrast.
--- NOTE | 2019-03-09 15:26 | RAD REPORT ---
EXAM DESCRIPTION: US - Pelvis Complete - 03/09/2019 3:14 pm CLINICAL HISTORY: Fever of unknown origin, patient is status post 3 days earlier COMPARISON: None. TECHNIQUE: Transabdominal pelvic sonography was performed. FINDINGS: Both ovaries are identifiable. Doppler evaluation shows normal blood flow. No suspicious o varian finding. No suspicious adnexal mass. Endometrium is up to 16 mm in thickness. The endometrium is heterogeneous ; however, this is not unex pected given the recent . Retained products are not suspected. Enlarged heterogeneous uterus present also typical for status after . No suspicio us myometrial finding. Soft tissues around the uterus show no suspicious findings. No abscess or drainable fluid collection. Urinary bladder is unremarkable. IMPRESSION: Pelvic ultrasound shows no suspicious or significant finding. Pelvic ultrasound and CT f indings are typical for status.
[2019-03-09] MEDS: AMPICILLIN SODIUM 2 GM in NA CHLORIDE 0.9% 100 ML IVPB SCH ×2 (17:53→23:52)
[2019-03-10] MEDS: Oxycodone HCl/Acetaminophen 1 TAB TAB PO PRN (00:31)
[2019-03-10] MEDS: METRONIDAZOLE 500mg IVPB 500 MG/100 ML BAG IV SCH (03:00)
[2019-03-10] MEDS: AMPICILLIN SODIUM 2 GM in NA CHLORIDE 0.9% 100 ML IVPB SCH (05:55)
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
--- NOTE | 2019-03-10 09:45 | P.PN ---
Subjective Date of Service: 03/10/19 Chief Complaint: Fever Subjective: Improving Patient seen and examined at bedside. at bedside. Chart reviewed and case discussed with nursing staff. Patient without any complaints of CP, SOB, cough, congestion, urinary complaints. Complains of mild-moderate incision pain. Vaginal bleeding less than period blood. Ambulating without concerns. tolerating PO Afebrile overnight, Vital signs stable, no tachycardia. Review of Systems 10-point ROS is otherwise unremarkable Physical Examination - Vital Signs Temperature: 97.3 F Blood Pressure: 122/76 Pulse: 66 Respirations: 16 Pulse Ox (%): 99 - Physical Exam General: Alert, In no apparent distress, Oriented x3 HEENT: Atraumatic, PERRLA, EOMI Neck: Supple, JVD not distended Respiratory: Clear to auscultation bilaterally, Normal air movement Cardiovascular: Regular rate/rhythm, Normal S1 S2 Gastrointestinal: Normal bowel sounds, No tenderness Musculoskeletal: No tenderness Integumentary: No rashes Neurological: Normal speech, Normal tone, Normal affect Lymphatics: No axilla or inguinal lymphadenopathy Assessment And Plan - Current Problems (Diagnosis) (1) Bilateral pneumonia Current Visit: Yes Status: Acute Qualifiers: Pneumonia type: due to unspecified organism (2) Status post Current Visit: Yes Status: Acute (3) Tachycardia Current Visit: Yes Status: Acute (4) fever Current Visit: Yes Status: Acute - Plan DDx: PNA, endometritis, abscess, Viral URI Fevers now resolved, 24 hrs. No tachycardia noted. CT abdomen WO contrast negative for acute abnormalities. Pelvic ultrasound negative for any acute abnormalities. Clinically, patient without any complaints. Cleared for discharge from my point of view on PO ampicillin. Written prescription provided. Thank you for this interesting consult.
[2019-03-10 14:24] VITALS: BP 123/73; TEMP 98
--- NOTE | 2019-03-11 05:15 | DS ---
Date of Discharge: 03/10/2019 The patient was admitted after discharge with a diagnosis of bilateral lower lobe pneumonia. All other testing including CAT scans, ultrasounds, lipase, all other blood studies have been basically normal. She has been afebrile now for more than 24 hours. was consulted, increased her ampicillin , stopped her Cleocin, and apparently started gentamicin. I think the patient became afebrile actually even before the gentamicin was started. The patient has never really looked extremely sick, but she was indeed hot when she came in. I will defer her to whom she has dismissed whether it is this morning, this afternoon, or tomorrow morning and what medicines to discharge her with. She is to see me in the office this week, , for staple removal. The incision has always looked good. Her breasts had never been engorged. She is ambulating and no complaints or problems offered. Diagnosis: Postoperative bilateral lower lobe pneumonia, now apparently resolving. CASTILLO/XIANG Voice ID: [id number] Report ID: [id number] TAD
== END 2019-03-10 12:00 | disposition home or self-care (01) | DRG 776 ==
LOC: L&D 13:01 → OBSVTOIN 13:37 → 2ND-WC 13:37
PROVIDERS: ADMIT Specialist; ATTEND Specialist
DX: O99.53 Diseases of the respiratory system complicating the puerperium (principal); J18.9 Pneumonia, unspecified organism
CPT/HCPCS: 36415; 71045; 71046; 74176; 76856; 80048; 80307; 81001; 83605; 84145; 85025; 87804; J0290; S0077

== ENCOUNTER 2019-06-22 20:21 | Emergency (ER) | payer OTHER ==
--- OUTSIDE RECORDS SUMMARY | 2019-06-22 20:24 | XMS REPORT ---
:1995 [facility] Address [address] [place] [address] Care Team Providers Name Role Phone Unavailable Unavailable Unavailable Problems This patient has no known problems. Allergies, Adverse Reactions, Alerts This patient has no known allergies or adverse reactions. Medications This patient has no known medications.
[2019-06-22] MEDS ORDERED: hydrOXYzine HCl 25 MG TAB ONE (21:50)
[2019-06-22] MEDS ORDERED: NA CHLORIDE 0.9% 1,000 ML ONE (21:50)
[2019-06-22] MEDS ORDERED: ONDANSETRON 4 MG/2 ML VIAL ONE ×2 (21:54→22:07)
--- NOTE | 2019-06-22 22:51 | ER ---
Nurse's Notes [facility] Name: Yesica Islas Age: 23 yrs Sex: Female : 1995 Arrival Date: 06/22/2019 Time: 20:23 Bed 16 Private MD: Diagnosis: Hyperventilation;Acute stress reaction Presentation: 06/22 20:24 Presenting complaint: Patient states: I got done smoking a cigarette and just started la1 tripping, Pt hyperventilating, hands cramping up, States she feels like she is going to pass out. Transition of care: patient was not received from another setting of care. Onset of symptoms was June 22, 2019. Risk Assessment: Do you want to hurt yourself or someone else? Patient reports no desire to harm self or others. Initial Sepsis Screen: Does the patient meet any 2 criteria? No. Patient's initial sepsis screen is negative. Does the patient have a suspected source of infection? No. Patient's initial sepsis screen is negative. Care prior to arrival: None. 20:24 Method Of Arrival: Ambulatory la1 20:24 Acuity: KOFI 3 la1 MEDICAL AND HEALTH SERVICES MANAGER: 20:25 LMP 03/06/2019 la1 Historical: - Allergies: 20:24 No Known Allergies; la1 - PMHx: 20:24 UTI; la1 - PSHx: 20:24 ; la1 - Immunization history:: Adult Immunizations up to date. - Social history:: Smoking status: Patient uses tobacco products, smokes one-half pack cigarettes per day. - Ebola Screening: : No symptoms or risks identified at this time. Screenin:00 Abuse screen: Denies threats or abuse. Nutritional screening: No deficits noted. jb4 Tuberculosis screening: No symptoms or risk factors identified. Fall Risk None identified. Assessment: 21:00 General: Appears in no apparent distress. comfortable, Behavior is cooperative, jb4 anxious. Pain: Denies pain. Neuro: Level of Consciousness is awake, alert, obeys commands, Oriented to person, place, time, situation. Cardiovascular: Patient's skin is warm and dry. Respiratory: Airway is patent Respiratory effort is even, unlabored, Respiratory pattern is symmetrical, tachypnea. GI: No deficits noted. No signs and/or symptoms were reported involving the gastrointestinal system. : No deficits noted. No signs and/or symptoms were reported regarding the genitourinary system. EENT: No deficits noted. No signs and/or symptoms were reported regarding the EENT system. Derm: Skin is intact, Skin is pink, warm \T\ dry. Musculoskeletal: Circulation, motion, and sensation intact. Range of motion: intact in all extremities. 22:00 Reassessment: Patient appears in no apparent distress at this time. Patient and/or jb4 family updated on plan of care and expected duration. Pain level reassessed. Patient is alert, oriented x 3, equal unlabored respirations, skin warm/dry/pink. 22:31 Reassessment: Patient appears in no apparent distress at this time. Patient and/or jb4 family updated on plan of care and expected duration. Pain level reassessed. Patient is alert, oriented x 3, equal unlabored respirations, skin warm/dry/pink. Patient states feeling better. 23:07 Reassessment: Patient appears in no apparent distress at this time. Patient and/or jb4 family updated on plan of care and expected duration. Pain level reassessed. Patient is alert, oriented x 3, equal unlabored respirations, skin warm/dry/pink. PT verbalized understanding of d/c and follow up instructions. Ambulated out of ED with a steady gait. Patient states feeling better. Vital Signs: 20:25 BP 150 / 89; Pulse 140; Resp 32; Temp 97.4; Pulse Ox 100% on R/A; la1 20:26 Pulse 110; Resp 22; la1 21:44 BP 125 / 76; Pulse 135; Resp 21; Temp 98.3(O); Pulse Ox 100% on R/A; jb5 22:58 BP 121 / 75; Pulse 57; Resp 15; Temp 98.3(O); Pulse Ox 100% on R/A; jb4 ED Course: 20:23 Patient arrived in ED. la1 20:24 Arm band placed on left wrist. la1 20:25 Triage completed. la1 20:45 Jayant Andrade NP is PHCP. pm1 20:45 Yoni Fam MD is Attending Physician. pm1 20:51 Forrest Driver, PIPO is Primary Nurse. jb4 21:00 Patient has correct armband on for positive identification. Bed in low position. Call jb4 light in reach. Side rails up X 1. nuclear monitoring technician on. Pulse ox on. NIBP on. 21:41 Inserted saline lock: 20 gauge in left antecubital area, using aseptic technique. Blood jb5 collected. 23:08 No provider procedures requiring assistance completed. IV discontinued, intact, jb4 bleeding controlled, No redness/swelling at site. Pressure dressing applied. Administered Medications: 22:15 Drug: NS 0.9% 1000 ml Route: IV; Rate: 1000 ml; Site: left antecubital; jb4 23:10 Follow up: Response: No adverse reaction; IV Status: Completed infusion; IV Intake: jb4 1000ml 22:15 Drug: hydrOXYzine 25 mg Route: PO; jb4 23:09 Follow up: Response: No adverse reaction; Marked relief of symptoms jb4 22:15 Drug: Zofran 4 mg Route: IVP; Site: left antecubital; jb4 22:45 Follow up: Response: No adverse reaction; Nausea is decreased jb4 Intake: 23:10 IV: 1000ml; Total: 1000ml. jb4 Outcome: 22:49 Discharge ordered by . pm1 23:08 Discharged to home ambulatory, with friend. jb4 23:08 Condition: stable 23:08 Discharge instructions given to patient, friend, Instructed on discharge instructions, follow up and referral plans. Demonstrated understanding of instructions, follow-up care. 23:10 Patient left the ED. jb4 Signatures: Dariel Disla, RN RN la1 Jayant Andrade, RAND CEMENTER RAND CEMENTER pm1 Forrest Driver RN RN jb4 Joycelyn Echevarria jb5 Corrections: (The following items were deleted from the chart) 20:27 20:26 Pulse 110bpm; la1 la1 21:45 21:42 BP 118 / 60; Pulse 97bpm; Resp 23bpm; Pulse Ox 100% RA; Temp 98.3F Oral; jb5 jb5 23:10 23:09 IV Status: Completed infusion; IV Intake: 1000ml jb4 jb4
--- NOTE | 2019-06-22 22:52 | EDPHYS ---
Physician Documentation [facility] Name: Yesica Islas Age: 23 yrs Sex: Female : 1995 Arrival Date: 06/22/2019 Time: 20:23 Bed 16 Private MD: ED Physician Yoni Fam HPI: 06/22 22:35 This 23 yrs old Female presents to ER via Ambulatory with complaints of pm1 Anxiety. 22:35 The patient presents to the emergency department with anxiety, over a relationship, pm1 arguing with boyfriend. Onset: The symptoms/episode began/occurred just prior to arrival. Associated signs and symptoms: Pertinent positives; mouth numbness, bilateral hands and feet cramping and pain. 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 - Social history:: Smoking status: Patient uses tobacco products, smokes one-half pack cigarettes per day. - Ebola Screening: : No symptoms or risks identified at this time. ROS: 22:35 Constitutional: Negative for fever, chills, and weight loss, Eyes: Negative for injury, pm1 pain, redness, and discharge, ENT: Negative for injury, pain, and discharge, Neck: Negative for injury, pain, and swelling, Cardiovascular: Negative for chest pain, palpitations, and edema, Respiratory: Negative for shortness of breath, cough, wheezing, and pleuritic chest pain, Abdomen/GI: Negative for abdominal pain, nausea, vomiting, diarrhea, and constipation, Back: Negative for injury and pain, : Negative for injury, bleeding, discharge, and swelling, MS/Extremity: Negative for injury and deformity, Skin: Negative for injury, rash, and discoloration, Neuro: Negative for headache, weakness, numbness, tingling, and seizure. 22:35 Psych: Positive for anxiety. Exam: 22:35 Constitutional: This is a well developed, well nourished patient who is awake, alert, pm1 and in no acute distress. Head/Face: Normocephalic, atraumatic. Eyes: Pupils equal round and reactive to light, extra-ocular motions intact. Lids and lashes normal. Conjunctiva and sclera are non-icteric and not injected. Cornea within normal limits. Periorbital areas with no swelling, redness, or edema. ENT: Nares patent. No nasal discharge, no septal abnormalities noted. Tympanic membranes are normal and external auditory canals are clear. Oropharynx with no redness, swelling, or masses, exudates, or evidence of obstruction, uvula midline. Mucous membranes moist. Neck: Trachea midline, no thyromegaly or masses palpated, and no cervical lymphadenopathy. Supple, full range of motion without nuchal rigidity, or vertebral point tenderness. No Meningismus. Chest/axilla: Normal chest wall appearance and motion. Nontender with no deformity. No lesions are appreciated. Cardiovascular: Regular rate and rhythm with a normal S1 and S2. No gallops, murmurs, or rubs. Normal PMI, no JVD. No pulse deficits. Respiratory: Lungs have equal breath sounds bilaterally, clear to auscultation and percussion. No rales, rhonchi or wheezes noted. No increased work of breathing, no retractions or nasal flaring. Abdomen/GI: Soft, non-tender, with normal bowel sounds. No distension or tympany. No guarding or rebound. No evidence of tenderness throughout. Back: No spinal tenderness. No costovertebral tenderness. Full range of motion. Skin: Warm, dry with normal turgor. Normal color with no rashes, no lesions, and no evidence of cellulitis. MS/ Extremity: Pulses equal, no cyanosis. Neurovascular intact. Full, normal range of motion. 22:35 Neuro: Orientation: is normal, Motor: is normal. 22:35 Psych: Behavior/mood is anxious. Vital Signs: 20:25 BP 150 / 89; Pulse 140; Resp 32; Temp 97.4; Pulse Ox 100% on R/A; la1 20:26 Pulse 110; Resp 22; la1 21:44 BP 125 / 76; Pulse 135; Resp 21; Temp 98.3(O); Pulse Ox 100% on R/A; jb5 22:58 BP 121 / 75; Pulse 57; Resp 15; Temp 98.3(O); Pulse Ox 100% on R/A; jb4 MDM: 20:54 Patient medically screened. pm1 22:47 Data reviewed: vital signs. Data interpreted: Pulse oximetry: on room air is 100 %. pm1 Interpretation: normal. Counseling: I had a detailed discussion with the patient and/or guardian regarding: the historical points, exam findings, and any diagnostic results supporting the discharge/admit diagnosis, the need for outpatient follow up, to return to the emergency department if symptoms worsen or persist or if there are any questions or concerns that arise at home. 06/22 21:11 Order name: EKG; Complete Time: 21:12 pm1 06/22 21:11 Order name: EKG - Nurse/Tech; Complete Time: 21:32 pm1 Administered Medications: 22:15 Drug: NS 0.9% 1000 ml Route: IV; Rate: 1000 ml; Site: left antecubital; jb4 23:10 Follow up: Response: No adverse reaction; IV Status: Completed infusion; IV Intake: jb4 1000ml 22:15 Drug: hydrOXYzine 25 mg Route: PO; jb4 23:09 Follow up: Response: No adverse reaction; Marked relief of symptoms jb4 22:15 Drug: Zofran 4 mg Route: IVP; Site: left antecubital; jb4 22:45 Follow up: Response: No adverse reaction; Nausea is decreased jb4 Disposition: 06/23 06:05 Co-signature as Attending Physician, Yoni Fam MD I agree with the assessment and 4 plan of care. Disposition: 06/22/19 22:49 Discharged to Home. Impression: Acute stress reaction, Hyperventilation. - Condition is Stable. - Discharge Instructions: Panic Attacks, Hyperventilation, Stress and Stress Management, Generalized Anxiety Disorder. - Medication Reconciliation Form, Thank You Letter, Antibiotic Education, Prescription Opioid Use form. - Follow up: Emergency Department; When: As needed; Reason: Worsening of condition. Follow up: Private Physician; When: 2 - 3 days; Reason: Recheck today's complaints, Continuance of care, Re-evaluation by your physician. - Problem is new. - Symptoms have improved. Signatures: Dariel Disla, RN RN la1 Jayant Andrade, ALIVIA MOTOR INSTALLER pm1 Forrest Driver RN RN jb4 Yoni Fam MD MD tw4 Corrections: (The following items were deleted from the chart) 06/22 23:10 22:49 06/22/2019 22:49 Discharged to Home. Impression: Acute stress jb4 reactionHyperventilation. Condition is Stable. Forms are Medication Reconciliation Form, Thank You Letter, Antibiotic Education, Prescription Opioid Use. Follow up: Emergency Department; When: As needed; Reason: Worsening of condition. Follow up: Private Physician; When: 2 - 3 days; Reason: Recheck today's complaints, Continuance of care, Re-evaluation by your physician. Problem is new. Symptoms have improved. pm1
[2019-06-22 23:31] VITALS: O2SAT 100
[2019-06-22 23:33] VITALS: TEMP 98.3
[2019-06-22 23:34] VITALS: BP 121/75
--- NOTE | 2019-06-23 13:38 | EKG ---
Test Date: 2019-06-22 Test Time: 21:31:31 Repatcher: COLLINS MEASUREMENT RESULTS: Intervals: Rate: 84 ND: 124 QRSD: 96 QT: 396 QTc: 467 Lavina: P: 76 ND: 124 QRS: 114 T: 63 INTERPRETIVE STATEMENTS: Sinus rhythm with marked sinus arrhythmia Right axis deviation Possible Right ventricular hypertrophy Abnormal ECG No previous ECG available for comparison Electronically Signed On 06-23-19 13:37:35 CDT by Tony Talavera
== END 2019-06-22 23:10 | disposition home or self-care (01) ==
LOC: ER 20:21
DX: R06.4 Hyperventilation (principal); F43.0 Acute stress reaction; F17.210 Nicotine dependence, cigarettes, uncomplicated
CPT/HCPCS: 96361; 93005; 96374; 99284; J7030; J2405

== ENCOUNTER 2019-08-05 13:28 | Emergency (ER) | payer SELFPAY ==
[2019-08-05 14:43] LABS: Barbiturates NEGATIVE (NEGATIVE); Benzodiazepines NEGATIVE (NEGATIVE); Cocaine NEGATIVE (NEGATIVE); METHAMPHETAM NEGATIVE (NEGATIVE); Methadone NEGATIVE (NEGATIVE); Opiates NEGATIVE (NEGATIVE); Phencyclidine NEGATIVE (NEGATIVE); THC Cannibis NEGATIVE (NEGATIVE)
[2019-08-05 14:43] LABS: Urine Blood NEGATIVE (NEG); Urine Glucose NEGATIVE (NEG); Urine Protein NEGATIVE (NEG); Urine Specific Gravity 1.015 (1.005-1.030); Urine pH 8.5 (5.0-7.0)
[2019-08-05 14:46] LABS: Basophils % 0.3 % (0-1.3); Hematocrit 39.8 % (36.0-45.0); Lymphocytes % 9.2 % (15.3-44.8); RBC Red Blood Cell Count 4.93 M/uL (3.86-4.86)
[2019-08-05 14:56] LABS: ALT/SGPT 26 U/L (12-78); AST/SGOT 17 U/L (15-37); Alkaline Phosphatase 130 U/L (45-117); BUN Blood Urea Nitrogen 10 mg/dL (7-18); Bicarbonate 23 mmol/L (21-32); Bilirubin Direct 0.1 mg/dL (0-0.2); Bilirubin Total 0.3 mg/dL (0.2-1.0); Glucose Level 104 mg/dL (74-106); Magnesium 2.1 mg/dL (1.8-2.4); Potassium 3.3 mmol/L (3.5-5.1); Protein, Total 8.1 g/dL (6.4-8.2); Sodium Level 141 mmol/L (136-145); Troponin (Emerg Dept Use Only) < 0.02 ng/mL (0.0-0.045)
[2019-08-05 15:15] LABS: Urine Bacteria 20-50 /HPF (<20); Urine Culture Reflex Order REFLEXED; Urine RBC <5 /HPF (NONE SEEN)
[2019-08-05 15:23] LABS: Blood Morphology Comment NOT SEEN (NOT SEEN); Platelet Estimate ADEQ
[2019-08-05] MEDS ORDERED: POTASSIUM 25 MEQ EFFERV TAB ONE (15:29)
--- NOTE | 2019-08-05 16:14 | RAD REPORT ---
EXAM DESCRIPTION: RAD - Chest Single View - 08/05/2019 2:47 pm CLINICAL HISTORY: Shortness of breath COMPARISON: March 2019 TECHNIQUE: AP portable chest image was obtained 1441 hours . FINDINGS: Lungs are clear. Heart and vasculature are normal. No measurable pleural effusion and no p neumothorax. No acute bony abnormality seen. No acute aortic findings suspected. IMPRESSION: No acute cardiopulmonary process.
--- NOTE | 2019-08-05 16:59 | ER ---
Nurse's Notes [facility] Name: Yesica Islas Age: 24 yrs Sex: Female : 1995 Arrival Date: 08/05/2019 Time: 13:31 Bed 30 Private MD: Diagnosis: Presentation: 08/05 13:46 Presenting complaint: Patient states: For the last 3 days my right arm and leg hb sometimes go numb and I feel like I can't breathe." Denies cough/congestion/pain. Transition of care: patient was not received from another setting of care. Onset of symptoms was August 03, 2019. Risk Assessment: Do you want to hurt yourself or someone else? Patient reports no desire to harm self or others. Care prior to arrival: None. 13:46 Method Of Arrival: Ambulatory hb 13:46 Acuity: KOFI 3 hb 14:34 Initial Sepsis Screen: Does the patient meet any 2 criteria? No. Patient's initial rv sepsis screen is negative. Does the patient have a suspected source of infection? No. Patient's initial sepsis screen is negative. Triage Assessment: 14:36 General: Appears in no apparent distress. comfortable, Behavior is calm, cooperative. 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 - Social history:: Smoking status: Patient uses tobacco products, denies chronic smoking, but will smoke occasionally. - Ebola Screening: : No symptoms or risks identified at this time. - Family history:: not pertinent. - Hospitalizations: : No recent hospitalization is reported. Screenin:33 Abuse screen: Denies threats or abuse. Denies injuries from another. Nutritional rv screening: No deficits noted. 14:35 Tuberculosis screening: No symptoms or risk factors identified. Fall Risk None rv identified. Assessment: 14:31 General: Appears in no apparent distress. comfortable, Behavior is calm, cooperative. rv Pain: Denies pain. Neuro: Level of Consciousness is awake, alert, obeys commands, Oriented to person, place, time, situation. Cardiovascular: Patient's skin is warm and dry. Rhythm is regular. Respiratory: Airway is patent Respiratory effort is even, Breath sounds are clear bilaterally. GI: No signs and/or symptoms were reported involving the gastrointestinal system. : No signs and/or symptoms were reported regarding the genitourinary system. EENT: No signs and/or symptoms were reported regarding the EENT system. Derm: Skin is intact. Musculoskeletal: Reports numbness in right arm and right leg. 15:35 Reassessment: Patient appears in no apparent distress at this time. Patient and/or rv family updated on plan of care and expected duration. Pain level reassessed. Patient is alert, oriented x 3, equal unlabored respirations, skin warm/dry/pink. patient prefers not to tell the result of test to the family/boyfriend. appears to be more comfortable at the moment. 16:26 Reassessment: Patient appears in no apparent distress at this time. Patient and/or rv family updated on plan of care and expected duration. Pain level reassessed. Patient is alert, oriented x 3, equal unlabored respirations, skin warm/dry/pink. patient feels a lot better now. 16:56 Reassessment:. rv Vital Signs: 13:48 BP 119 / 83; Pulse 81; Resp 16; Temp 97.6; Pulse Ox 100% on R/A; Weight 68.04 kg; hb Height 5 ft. 3 in. (160.02 cm); Pain 0/10; 15:00 BP 124 / 78; Pulse 97; Resp 16; Pulse Ox 99% on R/A; rv 16:26 BP 121 / 76; Pulse 83; Resp 17; Pulse Ox 100% on R/A; rv 13:48 Body Mass Index 26.57 (68.04 kg, 160.02 cm) hb ED Course: 13:31 Patient arrived in ED. mr 13:47 Triage completed. hb 13:48 Arm band placed on. hb 13:50 Kevin Dominguez RN is Primary Nurse. rv 14:03 Wilfredo Vazquez MD is Attending Physician. wa 14:32 Inserted saline lock: 22 gauge in left antecubital area, using aseptic technique. Blood rv collected. 14:34 Patient has correct armband on for positive identification. Placed in gown. Bed in low rv position. Call light in reach. Side rails up X 1. Adult w/ patient. athletic monitor on. Pulse ox on. NIBP on. 14:58 Chest Single View In Process Unspecified. EDMS 16:27 No provider procedures requiring assistance completed. IV discontinued, intact, rv bleeding controlled, No redness/swelling at site. Pressure dressing applied. Administered Medications: 15:32 Drug: Potassium Effervescent Tablet 50 mEq Route: PO; rv 16:00 Follow up: Response: No adverse reaction rv Outcome: 16:27 Eloped from patient exam room, after seeing physician Time discovered patient gone: rv August 05, 2019 at 16:30 16:58 Patient left the ED. rv Addendum: 08/08/2019 10:09 Addendum: Culture Results: Positive urine culture. Patient was not prescribed a a5 antibiotics at discharge. Report given to VILLA for further evaluation and then to notcher for follow up with patient. Phone call Attempt #1 left voicemail. Signatures: Dispatcher [employer] EDNV SainzJocelynn Audri, RN RN aa5 Katerin Stringer RN RN Wilfredo Vazquez MD MD sc Kevin Dominguez RN RN rv Corrections: (The following items were deleted from the chart) 08/05 16:55 16:27 Condition: good rv rv 16:55 16:27 Discharged to home ambulatory, with family, rv rv 16:55 16:27 Discharge instructions given to patient, family, Instructed on discharge rv instructions, follow up and referral plans. Demonstrated understanding of instructions, follow-up care, rv
[2019-08-05 17:54] VITALS: TEMP 97.6
[2019-08-05 17:56] VITALS: BP 121/76; O2SAT 100
--- NOTE | 2019-08-06 06:37 | EKG ---
Test Date: 2019-08-05 Test Time: 14:34:37 Barrel Raiser: NAVARRO MEASUREMENT RESULTS: Intervals: Rate: 80 AR: 126 QRSD: 100 QT: 378 QTc: 435 Edwards: P: 80 AR: 126 QRS: 123 T: 51 INTERPRETIVE STATEMENTS: Sinus rhythm with marked sinus arrhythmia Right axis deviation Possible Right ventricular hypertrophy Abnormal ECG Compared to ECG 06/22/2019 21:31:31 No significant changes Electronically Signed On 08-06-19 06:36:54 CASH REGISTER SERVICER by Tony Talavera
--- NOTE | 2019-08-06 17:22 | EDPHYS ---
Physician Documentation [facility] Name: Yesica Islas Age: 24 yrs Sex: Female : 1995 Arrival Date: 08/05/2019 Time: 13:31 Bed 30 Private MD: ED Physician Wilfredo Vazquez HPI: 08/05 17:00 This 24 yrs old Female presents to ER via Ambulatory with complaints of wa Breathing Difficulty, Numbness Of Arm. 17:00 The patient has shortness of breath at rest. Onset: The symptoms/episode began/occurred wa today. Duration: The symptoms are continuous, and are unchanged since they started. The patient's shortness of breath has no apparent modifying factors. Associated signs and symptoms: Pertinent positives: numbness in extremities. Severity of symptoms: At their worst the symptoms were moderate in the emergency department the symptoms are unchanged. The patient has not experienced similar symptoms in the past. The patient has not recently seen a physician. denies cough, fever, or congestion. 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 - Social history:: Smoking status: Patient uses tobacco products, denies chronic smoking, but will smoke occasionally. - Ebola Screening: : No symptoms or risks identified at this time. - Family history:: not pertinent. - Hospitalizations: : No recent hospitalization is reported. ROS: 17:02 Constitutional: Negative for fever, chills, and weight loss, Eyes: Negative for injury, wa pain, redness, and discharge, ENT: Negative for injury, pain, and discharge, Neck: Negative for injury, pain, and swelling, Cardiovascular: Negative for chest pain, palpitations, and edema, Abdomen/GI: Negative for abdominal pain, nausea, vomiting, diarrhea, and constipation, Back: Negative for injury and pain, : Negative for injury, bleeding, discharge, and swelling, MS/Extremity: Negative for injury and deformity, Skin: Negative for injury, rash, and discoloration, Psych: Negative for depression, anxiety, suicide ideation, homicidal ideation, and hallucinations. 17:02 Cardiovascular: Negative for chest pain. 17:02 Respiratory: Positive for shortness of breath, at rest. 17:02 All other systems are negative. 17:02 Neuro: Positive for numbness, of the right arm and left arm. wa Exam: 17:02 Constitutional: This is a well developed, well nourished patient who is awake, alert, wa and in no acute distress. Head/Face: Normocephalic, atraumatic. Eyes: Pupils equal round and reactive to light, extra-ocular motions intact. Lids and lashes normal. Conjunctiva and sclera are non-icteric and not injected. Cornea within normal limits. Periorbital areas with no swelling, redness, or edema. ENT: Nares patent. No nasal discharge, no septal abnormalities noted. Tympanic membranes are normal and external auditory canals are clear. Oropharynx with no redness, swelling, or masses, exudates, or evidence of obstruction, uvula midline. Mucous membranes moist. Neck: Trachea midline, no thyromegaly or masses palpated, and no cervical lymphadenopathy. Supple, full range of motion without nuchal rigidity, or vertebral point tenderness. No Meningismus. Cardiovascular: Regular rate and rhythm with a normal S1 and S2. No gallops, murmurs, or rubs. Normal PMI, no JVD. No pulse deficits. Respiratory: Lungs have equal breath sounds bilaterally, clear to auscultation and percussion. No rales, rhonchi or wheezes noted. No increased work of breathing, no retractions or nasal flaring. Abdomen/GI: Soft, non-tender, with normal bowel sounds. No distension or tympany. No guarding or rebound. No evidence of tenderness throughout. Back: No spinal tenderness. No costovertebral tenderness. Full range of motion. Skin: Warm, dry with normal turgor. Normal color with no rashes, no lesions, and no evidence of cellulitis. MS/ Extremity: Pulses equal, no cyanosis. Neurovascular intact. Full, normal range of motion. Neuro: Awake and alert, GCS 15, oriented to person, place, time, and situation. Cranial nerves II-XII grossly intact. Motor strength 5/5 in all extremities. Sensory grossly intact. Cerebellar exam normal. Normal gait. Psych: Awake, alert, with orientation to person, place and time. Behavior, mood, and affect are within normal limits. Vital Signs: 13:48 BP 119 / 83; Pulse 81; Resp 16; Temp 97.6; Pulse Ox 100% on R/A; Weight 68.04 kg; hb Height 5 ft. 3 in. (160.02 cm); Pain 0/10; 15:00 BP 124 / 78; Pulse 97; Resp 16; Pulse Ox 99% on R/A; rv 16:26 BP 121 / 76; Pulse 83; Resp 17; Pulse Ox 100% on R/A; rv 13:48 Body Mass Index 26.57 (68.04 kg, 160.02 cm) hb MDM: 14:03 Patient medically screened. hi 17:03 Differential diagnosis: Anxiety Reaction dysrhythmia? ACS?. hi 17:04 Data reviewed: vital signs, nurses notes, lab test result(s), EKG, radiologic studies. hi Test interpretation: by ED physician or midlevel provider: labs noted for low K of 3.3. CXR noted negative for acute process. UPT noted positive. quant HCG 2200. 17:05 Test interpretation: by ED physician or midlevel provider: EKG: interp by me: HR 80. wa sinus. nml axis. incomplete, non-specific interventricular delay. 17:06 Response to treatment: symptoms resolved prior to d/c. work up essentially negative. wa will have f/u with PMD. advised return for worsening. etiology uncertain. nml d-dimer and CXR. 17:11 Special discussion: pt eloped prior to proper disposition by . hi 08/05 14:10 Order name: BMP; Complete Time: 15:21 hi 08/05 14:10 Order name: CBC with Diff; Complete Time: 16:01 hi 08/05 14:10 Order name: D-Dimer; Complete Time: 15:21 hi 08/05 14:10 Order name: Hepatic Function; Complete Time: 15:21 hi 08/05 14:10 Order name: Magnesium; Complete Time: 15:21 hi 08/05 14:10 Order name: Troponin (emerg Dept Use Only); Complete Time: 15:21 hi 08/05 14:10 Order name: Urine Microscopic Only; Complete Time: 15:21 hi 08/05 14:10 Order name: Urine Drug Screen; Complete Time: 15:21 hi 08/05 14:33 Order name: Urine Dipstick--Ancillary (enter results); Complete Time: 15:21 08/05 14:33 Order name: Urine --Ancillary (enter results); Complete Time: 15:21 08/05 14:35 Order name: Glucose, Ancillary Testing; Complete Time: 14:39 [facility] 08/05 14:39 Order name: Quantitative Hcg; Complete Time: 15:58 hi 08/05 15:16 Order name: Urine Culture [facility] 08/05 15:24 Order name: Manual Differential; Complete Time: 15:29 [facility] 08/05 14:10 Order name: EKG; Complete Time: 14:11 hi 08/05 14:10 Order name: Cardiac monitoring; Complete Time: 14:30 hi 08/05 14:10 Order name: EKG - Nurse/Tech; Complete Time: 14:55 hi 08/05 14:10 Order name: IV Saline Lock; Complete Time: 14:30 hi 08/05 14:10 Order name: Labs collected and sent; Complete Time: 14:30 hi 08/05 14:10 Order name: O2 Per Protocol; Complete Time: 14:30 hi 08/05 14:10 Order name: O2 Sat Monitoring; Complete Time: 14:30 hi 08/05 14:10 Order name: Urine Dipstick-Ancillary (obtain specimen); Complete Time: 14:31 hi 08/05 14:58 Order name: Chest Single View EDOR Administered Medications: 15:32 Drug: Potassium Effervescent Tablet 50 mEq Route: PO; rv 16:00 Follow up: Response: No adverse reaction rv Disposition: 08/05/19 16:58 Patient left the facility after being seen by provider. - Patient left due to feeling better. Signatures: Dispatcher [facility] Katerin Stringer RN PIPO Wilfredo Vazquez MD MD hi Kevin Dominguez RN RN rv Corrections: (The following items were deleted from the chart) 14:57 14:11 Chest Pa And Lat (2 Views)+[email or web address] ordered. [facility] 16:57 16:57 08/05/2019 16:57 Patient left the facility after being seen by provider. Reason rv stated they are leaving due to other. rv
--- OUTSIDE RECORDS SUMMARY | 2019-08-10 23:46 | XMS REPORT ---
:1995 [facility] Address [address] [place] [address] [address] [place] [address] Care Team Providers Name Role Phone Unavailable Unavailable Unavailable Problems This patient has no known problems. Allergies, Adverse Reactions, Alerts This patient has no known allergies or adverse reactions. Medications This patient has no known medications.
== END 2019-08-05 16:58 | disposition left against medical advice (07) ==
LOC: ER 13:28
DX: R06.02 Shortness of breath (principal); Z72.0 Tobacco use
CPT/HCPCS: 36415; 71045; 80048; 80076; 80307; 81003; 81015; 81025; 82947; 83735; 84484; 84702; 85025; 85379; 87077; 87086; 87088; 87186; 93005; 99284

== ENCOUNTER 2019-08-06 10:45 | Emergency (ER) | payer SELFPAY ==
--- NOTE | 2019-08-06 12:32 | RAD REPORT ---
EXAM DESCRIPTION: US - Transvaginal OB - 08/06/2019 12:07 pm CLINICAL HISTORY: Abd cramping, ;Vaginal bleeding COMPARISON: None. TECHNIQUE: Endovaginal sonography performed. FINDINGS: A normal shaped gestational sac is present in the fundal portion of the endometrial cavity . Yolk sac is seen but there is no pole at this time. Average sac diameter corresponds to a 5 w mohegan 2 day age. No hematoma or mass in the endometrial cavity. Cervical canal is closed. Uterus is normal size. No myometrial mass. Both ovaries are identified and show normal blood flow pat tern. No dominant ovarian or adnexal mass. No blood or fluid in the cul de sac. IMPRESSION: A 5 week 2 day size gestational sac is present with yolk sac. No pole is identified at this time. Finding may simply reflect a very early gestation. Follow-u p can be obtained as clinical findings warrant. No hematoma or mass in the endometrial cavity. No adnexal abnormality.
--- NOTE | 2019-08-06 14:03 | EDPHYS ---
Physician Documentation [facility] Name: Yesica Islas Age: 24 yrs Sex: Female : 1995 Arrival Date: 08/06/2019 Time: 10:50 Bed 16 Private MD: ED Physician Mich Mai HPI: 08/06 14:11 This 24 yrs old Female presents to ER via Ambulatory with complaints of kb , Vaginal Bleeding. 14:13 The patient presents to the emergency department with vaginal bleeding, that is light, kb that is moderate. course: care: none. Previous pregnancies: in previous pregnancies patient has had. Associated signs and symptoms: Pertinent positives: vaginal bleeding. The patient has not experienced similar symptoms in the past. The patient has been recently seen by a physician:. Pt reports she was seen here yesterday and told she was . States she started having vaginal bleeding today. Pt is 5 months PP. 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 - Social history:: Smoking status: Patient/guardian denies using tobacco. - Ebola Screening: : No symptoms or risks identified at this time. ROS: 14:10 Constitutional: Negative for fever, chills, and weight loss, ENT: Negative for injury, kb pain, and discharge, Neck: Negative for injury, pain, and swelling, Cardiovascular: Negative for chest pain, palpitations, and edema, Respiratory: Negative for shortness of breath, cough, wheezing, and pleuritic chest pain, Abdomen/GI: Negative for abdominal pain, nausea, vomiting, diarrhea, and constipation, MS/Extremity: Negative for injury and deformity, Skin: Negative for injury, rash, and discoloration, Neuro: Negative for headache, weakness, numbness, tingling, and seizure. 14:10 : Positive for vaginal bleeding. Exam: 14:08 Constitutional: This is a well developed, well nourished patient who is awake, alert, kb and in no acute distress. Head/Face: Normocephalic, atraumatic. Neck: Trachea midline, no thyromegaly or masses palpated, and no cervical lymphadenopathy. Supple, full range of motion without nuchal rigidity, or vertebral point tenderness. No Meningismus. Chest/axilla: Normal chest wall appearance and motion. Nontender with no deformity. No lesions are appreciated. Cardiovascular: Regular rate and rhythm with a normal S1 and S2. No gallops, murmurs, or rubs. Normal PMI, no JVD. No pulse deficits. Respiratory: Lungs have equal breath sounds bilaterally, clear to auscultation and percussion. No rales, rhonchi or wheezes noted. No increased work of breathing, no retractions or nasal flaring. Abdomen/GI: Soft, non-tender, with normal bowel sounds. No distension or tympany. No guarding or rebound. No evidence of tenderness throughout. Back: No spinal tenderness. No costovertebral tenderness. Full range of motion. Skin: Warm, dry with normal turgor. Normal color with no rashes, no lesions, and no evidence of cellulitis. MS/ Extremity: Pulses equal, no cyanosis. Neurovascular intact. Full, normal range of motion. Neuro: Awake and alert, GCS 15, oriented to person, place, time, and situation. Cranial nerves II-XII grossly intact. Motor strength 5/5 in all extremities. Sensory grossly intact. Cerebellar exam normal. Normal gait. Vital Signs: 10:53 BP 96 / 68; Pulse 78; Resp 16 S; Temp 98.2(TE); Pulse Ox 99% on R/A; Weight 68.04 kg aa5 (R); Height 5 ft. 3 in. (160.02 cm) (R); Pain 0/10; 12:20 BP 114 / 78; Pulse 82; Resp 17 S; Pulse Ox 99% on R/A; ca1 13:26 BP 109 / 70; Pulse 81; Resp 16 S; Pulse Ox 99% on R/A; ca1 10:53 Body Mass Index 26.57 (68.04 kg, 160.02 cm) aa5 MDM: 11:35 Patient medically screened. kb 14:01 Data reviewed: vital signs, nurses notes. Data interpreted: Pulse oximetry: on room air kb is 99 %. Interpretation: normal. Counseling: I had a detailed discussion with the patient and/or guardian regarding: the historical points, exam findings, and any diagnostic results supporting the discharge/admit diagnosis, lab results, radiology results, the need for outpatient follow up, an OB/Gyne specialist, to return to the emergency department if symptoms worsen or persist or if there are any questions or concerns that arise at home. 08/06 10:55 Order name: Quantitative Hcg; Complete Time: 13:26 kb 08/06 10:55 Order name: Abo/rh Typing; Complete Time: 14:01 kb 08/06 10:55 Order name: US Transvaginal Ob; Complete Time: 12:41 kb Administered Medications: No medications were administered Disposition: 14:59 Co-signature as Attending Physician, Mich Mai MD I agree with the assessment and kdr plan of care. Disposition: 08/06/19 14:02 Discharged to Home. Impression: Threatened , Less than 8 weeks gestation of . - Condition is Stable. - Discharge Instructions: First Trimester of , [id number], Threatened Miscarriage, [id number]. - Medication Reconciliation Form, Thank You Letter, Antibiotic Education, Prescription Opioid Use form. - Follow up: Emergency Department; When: As needed; Reason: Worsening of condition. Follow up: Private Physician; When: 2 - 3 days; Reason: Recheck today's complaints, Continuance of care, Re-evaluation by your physician. Signatures: Dispatcher [employer] EDDebbie Darby, CLINICAL PARTNER-C CLINICAL PARTNER-Mich Tavares MD MD [facility] Eleonora Elkins RN RN aa5 Lisa Renee RN RN ca1 Corrections: (The following items were deleted from the chart) 14:08 14:02 08/06/2019 14:02 Discharged to Home. Impression: Threatened ; Less than 8 ca1 weeks gestation of . Condition is Stable. Forms are Medication Reconciliation Form, Thank You Letter, Antibiotic Education, Prescription Opioid Use. Follow up: Emergency Department; When: As needed; Reason: Worsening of condition. Follow up: Private Physician; When: 2 - 3 days; Reason: Recheck today's complaints, Continuance of care, Re-evaluation by your physician. kb
--- NOTE | 2019-08-06 14:03 | ER ---
Nurse's Notes [facility] Name: Yesica Islas Age: 24 yrs Sex: Female : 1995 Arrival Date: 08/06/2019 Time: 10:50 Bed 16 Private MD: Diagnosis: Threatened ;Less than 8 weeks gestation of Presentation: 08/06 10:51 Presenting complaint: Patient states: vaginal bleeding that began this morning. Denies aa5 abd pain. Pt states "I came here yesterday and they told me I was ". Transition of care: patient was not received from another setting of care. Onset of symptoms was August 2019. Risk Assessment: Do you want to hurt yourself or someone else? Patient reports no desire to harm self or others. Initial Sepsis Screen: Does the patient meet any 2 criteria? No. Patient's initial sepsis screen is negative. Does the patient have a suspected source of infection? No. Patient's initial sepsis screen is negative. Care prior to arrival: None. 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 - Social history:: Smoking status: Patient/guardian denies using tobacco. - Ebola Screening: : No symptoms or risks identified at this time. Screenin:20 Abuse screen: Denies threats or abuse. Denies injuries from another. Nutritional ca1 screening: No deficits noted. Tuberculosis screening: No symptoms or risk factors identified. Fall Risk IV access (20 points). Assessment: 12:20 General: Appears in no apparent distress. comfortable, Behavior is calm, cooperative, ca1 appropriate for age. Pain: Denies pain. Neuro: Level of Consciousness is awake, alert, obeys commands, Oriented to person, place, time, situation, Appropriate for age. Cardiovascular: Heart tones S1 S2 present Capillary refill < 3 seconds Patient's skin is warm and dry. Respiratory: Airway is patent Respiratory effort is even, unlabored, Respiratory pattern is regular, symmetrical, Breath sounds are clear bilaterally. GI: Abdomen is round non-distended, Bowel sounds present X 4 quads. Abd is soft and non tender X 4 quads. : Reports vaginal bleeding that is bright red, spotty, since this morning. EENT: No deficits noted. No signs and/or symptoms were reported regarding the EENT system. Derm: Skin is intact, is healthy with good turgor, Skin is pink, warm \\T\\ dry. Musculoskeletal: Circulation, motion, and sensation intact. Capillary refill < 3 seconds, Range of motion: intact in all extremities. 13:26 Reassessment: Patient appears in no apparent distress at this time. Patient and/or ca1 family updated on plan of care and expected duration. Pain level reassessed. Patient is alert, oriented x 3, equal unlabored respirations, skin warm/dry/pink. 13:58 Reassessment: Patient is alert, oriented x 3, equal unlabored respirations, skin aa5 warm/dry/pink. Pt requesting for IV to be dc'd, [employer] was notified and ok to d/c IV at this time. . Vital Signs: 10:53 BP 96 / 68; Pulse 78; Resp 16 S; Temp 98.2(TE); Pulse Ox 99% on R/A; Weight 68.04 kg aa5 (R); Height 5 ft. 3 in. (160.02 cm) (R); Pain 0/10; 12:20 BP 114 / 78; Pulse 82; Resp 17 S; Pulse Ox 99% on R/A; ca1 13:26 BP 109 / 70; Pulse 81; Resp 16 S; Pulse Ox 99% on R/A; ca1 10:53 Body Mass Index 26.57 (68.04 kg, 160.02 cm) aa5 ED Course: 10:50 Patient arrived in ED. aa5 10:51 Arm band placed on. aa5 10:52 Triage completed. aa5 10:55 De[facility]ales [facility]-C [facility]. kb 10:55 Mich Mai MD is Attending Physician. kb 11:34 Lisa Renee, PIPO is Primary Nurse. ca1 11:50 US Transvaginal Ob In Process Unspecified. EDMS 12:20 Patient has correct armband on for positive identification. Placed in gown. Bed in low ca1 position. Call light in reach. Side rails up X 1. Pulse ox on. NIBP on. Warm blanket given. 12:20 No provider procedures requiring assistance completed. Initial lab(s) drawn, by me, ca1 sent to lab. Inserted saline lock: 22 gauge in left antecubital area, using aseptic technique. Blood collected. 13:59 IV discontinued, intact, bleeding controlled, No redness/swelling at site. Pressure aa5 dressing applied. Administered Medications: No medications were administered Outcome: 14:02 Discharge ordered by . edi 14:08 Discharged to home ambulatory, with significant other. ca1 14:08 Condition: stable 14:08 Discharge instructions given to patient, significant other, Instructed on discharge instructions, follow up and referral plans. Demonstrated understanding of instructions, follow-up care. 14:08 Patient left the ED. ca1 Signatures: Dispatcher [employer] EDMS Debbie Rosales, [facility]ILITY PSYCHIATRIST-C [facility]ACILITY PSYCHIATRIST-Eleonora Peralta, RN RN aa5 Lisa Renee RN RN ca1 Corrections: (The following items were deleted from the chart) 10:55 10:53 BP 96 / 68; Pulse 78bpm; Resp 16bpm; Spontaneous; Pulse Ox 99% RA; Temp 98.2F aa5 Temporal; aa5
--- OUTSIDE RECORDS SUMMARY | 2019-08-11 00:54 | XMS REPORT ---
:1995 [facility] Address [address] [place] [address] [address] [place] [address] Care Team Providers Name Role Phone Unavailable Unavailable Unavailable Problems This patient has no known problems. Allergies, Adverse Reactions, Alerts This patient has no known allergies or adverse reactions. Medications This patient has no known medications.
== END 2019-08-06 14:08 | disposition home or self-care (01) ==
LOC: ER 10:45
DX: O20.0 Threatened abortion (principal); Z3A.01 Less than 8 weeks gestation of pregnancy
CPT/HCPCS: 36415; 76817; 84702; 86900; 86901; 99284

== ENCOUNTER 2019-08-08 12:53 | Emergency (ER) | payer SELFPAY ==
--- NOTE | 2019-08-08 16:01 | RAD REPORT ---
EXAM DESCRIPTION: US - Transvaginal OB - 08/08/2019 3:46 pm CLINICAL HISTORY: VAGINAL BLEEDING COMPARISON: <Comparisons> FINDINGS: The previously noted gestational sac in the fundal endometrium is no longer seen. No IUP f indings are evident. The maternal adnexa and ovaries are within normal limits. Normal Doppler blood flow was demonstrated to both ovaries. Small amount of free fluid is seen in the pelvis. IMPRESSION: The previously noted gestational sac on the 08/06/2019 study is no longer identified.
--- NOTE | 2019-08-08 16:12 | ER ---
Nurse's Notes [facility] Name: Yesica Islas Age: 24 yrs Sex: Female : 1995 Arrival Date: 08/08/2019 Time: 13:02 Bed 25 Private MD: Diagnosis: Spontaneous -complete Presentation: 08/08 13:05 Presenting complaint: Patient states: She was here 2 days ago and she hasn't been able aj1 to follow up with her OB, so they came to have her labs redrawn. Transition of care: patient was not received from another setting of care. Onset of symptoms was 2018. Risk Assessment: Do you want to hurt yourself or someone else? Patient reports no desire to harm self or others. Initial Sepsis Screen: Does the patient meet any 2 criteria? No. Patient's initial sepsis screen is negative. Does the patient have a suspected source of infection? No. Patient's initial sepsis screen is negative. Care prior to arrival: None. 13:05 Method Of Arrival: Ambulatory aj 13:05 Acuity: KOFI 4 aj1 Triage Assessment: 13:06 General: Appears in no apparent distress. comfortable, Behavior is calm, cooperative, aj1 appropriate for age. Pain: Denies pain. Neuro: Level of Consciousness is awake, alert, obeys commands. Cardiovascular: Patient's skin is warm and dry. Respiratory: Airway is patent Respiratory effort is even, unlabored, Respiratory pattern is regular, symmetrical. 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 - Social history:: Smoking status: Patient/guardian denies using tobacco. - Ebola Screening: : Patient denies travel to an Ebola-affected area in the 21 days before illness onset. Screenin:15 Abuse screen: Denies threats or abuse. Nutritional screening: No deficits noted. la1 Tuberculosis screening: No symptoms or risk factors identified. Fall Risk None identified. Assessment: 14:14 Reassessment: Pt is here for repeat HCG level for the third time, sitting up in bed, no la1 distress, still with mild bleeding. General: Appears in no apparent distress. Behavior is calm, cooperative. Pain: Denies pain. Vital Signs: 13:06 BP 117 / 80; Pulse 79; Resp 18; Temp 98.5; Pulse Ox 97% on R/A; Weight 68.04 kg (R); aj1 Height 5 ft. 3 in. (160.02 cm) (R); Pain 0/10; 13:06 Body Mass Index 26.57 (68.04 kg, 160.02 cm) aj1 ED Course: 13:02 Patient arrived in ED. rg4 13:06 Triage completed. aj1 13:06 Arm band placed on Patient placed in waiting room, Patient notified of wait time. aj1 13:13 Sadia Garcia FNP-C [facility]. snw 13:13 Waqas Siddiqi MD is Attending Physician. snw 14:11 Dariel Disla, RN is Primary Nurse. la1 14:15 Patient has correct armband on for positive identification. la1 15:46 US Transvaginal Ob In Process Unspecified. EDMS 17:07 No provider procedures requiring assistance completed. Patient did not have IV access tr5 during this emergency room visit. Administered Medications: No medications were administered Outcome: 16:11 Discharge ordered by MD. snw 17:07 Discharged to home ambulatory, with family. tr5 17:07 Condition: stable 17:07 Discharge instructions given to patient, family, Instructed on discharge instructions, follow up and referral plans. medication usage, Demonstrated understanding of instructions, follow-up care, medications, Prescriptions given X 2. 17:10 Patient left the ED. tr5 Signatures: Dispatcher [employer] EDMS Dorinda Wooten, RN RN aj1 Sadia Garcia FNP-C FNP-Csnw Dariel Disla RN RN la1 Xuan Spaulding rg4 Terry Wilson RN RN tr5
--- NOTE | 2019-08-08 16:12 | EDPHYS ---
Physician Documentation [facility] Name: Yesica Islas Age: 24 yrs Sex: Female : 1995 Arrival Date: 08/08/2019 Time: 13:02 Bed 25 Private MD: ED Physician Waqas Siddiqi HPI: 08/08 15:02 This 24 yrs old Female presents to ER via Ambulatory with complaints of HCG snw Levels Checked. 15:02 Onset: The symptoms/episode began/occurred 3 day(s) ago, and became persistent. snw Associated signs and symptoms: Pertinent positives: abdominal cramping. Modifying factors: The patient symptoms are alleviated by nothing, the patient symptoms are aggravated by nothing. The patient has not experienced similar symptoms in the past. The patient has not recently seen a physician. pt recently had TS and HCG levels drawn. today comparison is much lower. 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 - Social history:: Smoking status: Patient/guardian denies using tobacco. - Ebola Screening: : Patient denies travel to an Ebola-affected area in the 21 days before illness onset. ROS: 14:58 Constitutional: Negative for fever, chills, and weight loss, Eyes: Negative for injury, snw pain, redness, and discharge, ENT: Negative for injury, pain, and discharge, Neck: Negative for injury, pain, and swelling, Cardiovascular: Negative for chest pain, palpitations, and edema, Respiratory: Negative for shortness of breath, cough, wheezing, and pleuritic chest pain, Abdomen/GI: Negative for abdominal pain, nausea, vomiting, diarrhea, and constipation, Back: Negative for injury and pain, : Negative for injury, discharge, and swelling, +vaginal bleeding, lower abd cramping MS/Extremity: Negative for injury and deformity, Skin: Negative for injury, rash, and discoloration, Neuro: Negative for headache, weakness, numbness, tingling, and seizure, Psych: Negative for depression, anxiety, suicide ideation, homicidal ideation, and hallucinations. Exam: 14:58 Constitutional: This is a well developed, well nourished patient who is awake, alert, snw and in no acute distress. Head/Face: Normocephalic, atraumatic. Eyes: Pupils equal round and reactive to light, extra-ocular motions intact. Lids and lashes normal. Conjunctiva and sclera are non-icteric and not injected. Cornea within normal limits. Periorbital areas with no swelling, redness, or edema. ENT: Nares patent. No nasal discharge, no septal abnormalities noted. Tympanic membranes are normal and external auditory canals are clear. Oropharynx with no redness, swelling, or masses, exudates, or evidence of obstruction, uvula midline. Mucous membranes moist. Neck: Trachea midline, no thyromegaly or masses palpated, and no cervical lymphadenopathy. Supple, full range of motion without nuchal rigidity, or vertebral point tenderness. No Meningismus. Chest/axilla: Normal chest wall appearance and motion. Nontender with no deformity. No lesions are appreciated. Cardiovascular: Regular rate and rhythm with a normal S1 and S2. No gallops, murmurs, or rubs. Normal PMI, no JVD. No pulse deficits. Respiratory: Lungs have equal breath sounds bilaterally, clear to auscultation and percussion. No rales, rhonchi or wheezes noted. No increased work of breathing, no retractions or nasal flaring. Abdomen/GI: Soft, non-tender, with normal bowel sounds. No distension or tympany. No guarding or rebound. No evidence of tenderness throughout. Back: No spinal tenderness. No costovertebral tenderness. Full range of motion. Skin: Warm, dry with normal turgor. Normal color with no rashes, no lesions, and no evidence of cellulitis. MS/ Extremity: Pulses equal, no cyanosis. Neurovascular intact. Full, normal range of motion. Neuro: Awake and alert, GCS 15, oriented to person, place, time, and situation. Cranial nerves II-XII grossly intact. Motor strength 5/5 in all extremities. Sensory grossly intact. Cerebellar exam normal. Normal gait. Psych: Awake, alert, with orientation to person, place and time. Behavior, mood, and affect are within normal limits. Vital Signs: 13:06 BP 117 / 80; Pulse 79; Resp 18; Temp 98.5; Pulse Ox 97% on R/A; Weight 68.04 kg (R); aj1 Height 5 ft. 3 in. (160.02 cm) (R); Pain 0/10; 13:06 Body Mass Index 26.57 (68.04 kg, 160.02 cm) aj1 MDM: 14:00 Patient medically screened. [place] 16:11 Data reviewed: vital signs, nurses notes. Data interpreted: Pulse oximetry: on room air snw is 97 %. Interpretation: normal. Counseling: I had a detailed discussion with the patient and/or guardian regarding: the historical points, exam findings, and any diagnostic results supporting the discharge/admit diagnosis, radiology results, the need for outpatient follow up, to return to the emergency department if symptoms worsen or persist or if there are any questions or concerns that arise at home. Special discussion: I have referred the patient to see his PCP for further evaluation of high blood pressure. Based on the history and exam findings, there is no indication for further emergent testing or inpatient evaluation. I discussed with the patient/guardian the need to see the OB Gyne specialist for further evaluation of the symptoms. 08/08 13:15 Order name: HCG-Quantitative; Complete Time: 14:50 snw 08/08 14:40 Order name: US Transvaginal Ob; Complete Time: 16:09 la1 Administered Medications: No medications were administered Disposition: 08/08/19 16:11 Discharged to Home. Impression: Spontaneous - complete. - Condition is Stable. - Discharge Instructions: Miscarriage. - Prescriptions for Vitamin 27- 0.8 mg Oral Tablet - take 1 tablet by ORAL route once daily; 60 tablet. Diclofenac Sodium 75 mg Oral Tablet Sustained Release - take 1 tablet by ORAL route 2 times per day; 30 tablet. - Medication Reconciliation Form, Thank You Letter, Antibiotic Education, Prescription Opioid Use form. - Follow up: Emergency Department; When: As needed; Reason: Worsening of condition. Follow up: Private Physician; When: 1 week; Reason: Recheck today's complaints, Continuance of care, Re-evaluation by your physician. Addendum: 08/10/2019 13:15 Co-signature as Attending Physician, Waqas Siddiqi MD I agree with the assessment and c tamayo plan of care. Signatures: Dispatcher [employer] EDDorinda Santana RN RN aj1 Waqas Siddiqi MD MD cha Therrien, Shelly, UNIFORM DESIGNER-C UNIFORM DESIGNER-Csnw Terry Wilson, RN RN tr5 Corrections: (The following items were deleted from the chart) 08/08 15:02 14:58 Constitutional: Negative for fever, chills, and weight loss, Eyes: Negative for snw injury, pain, redness, and discharge, ENT: Negative for injury, pain, and discharge, Neck: Negative for injury, pain, and swelling, Cardiovascular: Negative for chest pain, palpitations, and edema, Respiratory: Negative for shortness of breath, cough, wheezing, and pleuritic chest pain, Abdomen/GI: Negative for abdominal pain, nausea, vomiting, diarrhea, and constipation, Back: Negative for injury and pain, : Negative for injury, discharge, and swelling, +vaginal bleeding MS/Extremity: Negative for injury and deformity, Skin: Negative for injury, rash, and discoloration, Neuro: Negative for headache, weakness, numbness, tingling, and seizure, Psych: Negative for depression, anxiety, suicide ideation, homicidal ideation, and hallucinations, snw 17:10 16:11 08/08/2019 16:11 Discharged to Home. Impression: Spontaneous - complete. tr5 Condition is Stable. Forms are Medication Reconciliation Form, Thank You Letter, Antibiotic Education, Prescription Opioid Use. Follow up: Emergency Department; When: As needed; Reason: Worsening of condition. Follow up: Private Physician; When: 1 week; Reason: Recheck today's complaints, Continuance of care, Re-evaluation by your physician. snw
[2019-08-08 20:28] VITALS: BP 117/80; TEMP 98.5; O2SAT 97
--- OUTSIDE RECORDS SUMMARY | 2019-08-11 05:26 | XMS REPORT ---
:1995 [facility] Address [address] [place] [address] [address] [place] [address] Care Team Providers Name Role Phone Unavailable Unavailable Unavailable Problems This patient has no known problems. Allergies, Adverse Reactions, Alerts This patient has no known allergies or adverse reactions. Medications This patient has no known medications.
== END 2019-08-08 17:10 | disposition home or self-care (01) ==
LOC: ER 12:53
DX: O03.9 Complete or unspecified spontaneous abortion without complication (principal)
CPT/HCPCS: 36415; 76817; 84702; 99283

== ENCOUNTER 2019-08-30 13:54 | Emergency (ER) | payer SELFPAY ==
--- OUTSIDE RECORDS SUMMARY | 2019-08-30 13:56 | XMS REPORT ---
:1995 [facility] Address [address] [place] [address] Care Team Providers Name Role Phone Unavailable Unavailable Unavailable Problems This patient has no known problems. Allergies, Adverse Reactions, Alerts This patient has no known allergies or adverse reactions. Medications This patient has no known medications.
--- NOTE | 2019-08-30 15:42 | ER ---
Nurse's Notes [facility] Name: Yesica Islas Age: 24 yrs Sex: Female : 1995 Arrival Date: 08/30/2019 Time: 13:55 Bed 23 Private MD: Diagnosis: Anxiety disorder, unspecified Presentation: 08/30 13:59 Presenting complaint: Patient states: "I feel anxious and am shaking and my chest feels hb heavy, m,y heart is beating fast, and I am numb all over.". Transition of care: patient was not received from another setting of care. Onset of symptoms was August 30, 2019. Risk Assessment: Do you want to hurt yourself or someone else? Patient reports no desire to harm self or others. Initial Sepsis Screen: Does the patient meet any 2 criteria? No. Patient's initial sepsis screen is negative. Does the patient have a suspected source of infection? No. Patient's initial sepsis screen is negative. Care prior to arrival: None. 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 - Social history:: Smoking status: Patient uses tobacco products, smokes one-half pack cigarettes per day. - Ebola Screening: : No symptoms or risks identified at this time. Screenin:42 Abuse screen: Denies threats or abuse. Denies injuries from another. Nutritional mg2 screening: No deficits noted. Tuberculosis screening: No symptoms or risk factors identified. Fall Risk None identified. Assessment: 14:41 General: Appears in no apparent distress. comfortable, Behavior is calm, cooperative. mg2 Pain: Complains of pain in chest Pain does not radiate. Pain currently is 2 out of 10 on a pain scale. Quality of pain is described as heavy, pressure, Pain began gradually, Is intermittent. Neuro: Level of Consciousness is awake, alert, obeys commands, Oriented to person, place, time, situation. Cardiovascular: Capillary refill < 3 seconds Patient's skin is warm and dry. Respiratory: Airway is patent Respiratory effort is even, unlabored, Respiratory pattern is regular, symmetrical. Respiratory: Reports shortness of breath. GI: No signs and/or symptoms were reported involving the gastrointestinal system. : No signs and/or symptoms were reported regarding the genitourinary system. EENT: No signs and/or symptoms were reported regarding the EENT system. Derm: Skin is intact, is healthy with good turgor, Skin is pink, warm \\T\\ dry. normal. Musculoskeletal: Circulation, motion, and sensation intact. Capillary refill. Vital Signs: 14:01 BP 128 / 95; Pulse 98; Resp 16; Temp 97.5; Pulse Ox 100% on R/A; Weight 68.04 kg; hb Height 5 ft. 2 in. (157.48 cm); Pain 3/10; 14:43 Pulse 76; Resp 18; Pulse Ox 97% on R/A; mg2 15:46 Pulse 69; Resp 17 S; Pulse Ox 98% on R/A; jp3 15:57 BP 122 / 68; Pulse 75; Resp 18; Temp 97; Pulse Ox 100% on R/A; Pain 0/10; mg2 14:01 Body Mass Index 27.44 (68.04 kg, 157.48 cm) hb ED Course: 13:55 Patient arrived in ED. as 14:00 Triage completed. hb 14:01 Arm band placed on. hb 14:05 Maria Eugenia Collier FNP is PHCP. nh 14:05 Roman Landry MD is Attending Physician. nh 14:18 Mark Landis, PIPO is Primary Nurse. mg2 14:18 EKG done, by ED staff, reviewed by Maria Eugenia BURTON. Patient maintains SpO2 saturation jp3 greater than 95% on room air. 14:23 Safety checks: Family/friend present: yes. Family/friends encouraged to stay with jp3 patient. Bed in low position. Call light in reach. Side rails up X 1. Warm blanket given. Verbal reassurance given. night monitor on. Pulse ox on. NIBP on. 14:43 No provider procedures requiring assistance completed. Initial lab(s) drawn, by me, mg2 sent to lab. Patient did not have IV access during this emergency room visit. Administered Medications: No medications were administered Outcome: 15:42 Discharge ordered by . nh 15:58 Discharged to home ambulatory, with family. mg2 15:58 Condition: stable 15:58 Discharge instructions given to patient, family, Instructed on discharge instructions, follow up and referral plans. medication usage, Demonstrated understanding of instructions, follow-up care, medications, Prescriptions given X 1. 15:59 Patient left the ED. mg2 Signatures: Maria Eugenia Collier, PRODUCTION SUPERINTENDENT PRODUCTION SUPERINTENDENT Cami Henderson Heather, RN RN Mark Landis RN RN [facility] Ad Allen jp3
--- NOTE | 2019-08-30 15:42 | EDPHYS ---
Physician Documentation [facility] Name: Yesica Islas Age: 24 yrs Sex: Female : 1995 Arrival Date: 08/30/2019 Time: 13:55 Bed 23 Private MD: ED Physician Roman Landry HPI: 08/30 15:11 This 24 yrs old Female presents to ER via Ambulatory with complaints of nh Numbness, Anxiety. 15:11 Onset: The symptoms/episode began/occurred acutely, just prior to arrival. Associated nh signs and symptoms: Pertinent positives: shortness of breath, Pertinent negatives: abdominal pain, chest pain, congestion, constipation, cough, diarrhea, dysuria, earache, fever, headache, nasal discharge, seizure, sore throat, vomiting, wheezing. Modifying factors: The patient symptoms are alleviated by nothing, the patient symptoms are aggravated by nothing. The patient has experienced similar episodes in the past, several times, and the symptoms today are exactly the same, to previous anxiety attack. The patient has not recently seen a physician. 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 - Social history:: Smoking status: Patient uses tobacco products, smokes one-half pack cigarettes per day. - Ebola Screening: : No symptoms or risks identified at this time. ROS: 15:11 Constitutional: Negative for fever, chills, and weight loss, Eyes: Negative for injury, nh pain, redness, and discharge, ENT: Negative for injury, pain, and discharge, Neck: Negative for injury, pain, and swelling, Cardiovascular: Negative for chest pain, palpitations, and edema, Abdomen/GI: Negative for abdominal pain, nausea, vomiting, diarrhea, and constipation, Back: Negative for injury and pain, : Negative for injury, bleeding, discharge, and swelling, MS/Extremity: Negative for injury and deformity, Skin: Negative for injury, rash, and discoloration, Neuro: Negative for headache, weakness, numbness, tingling, and seizure, Allergy/Immunology: Negative for hives, rash, and allergies. 15:11 Respiratory: Positive for shortness of breath. 15:11 Psych: Positive for anxiety. Exam: 15:11 Constitutional: This is a well developed, well nourished patient who is awake, alert, nh and in no acute distress. Head/Face: Normocephalic, atraumatic. Eyes: Pupils equal round and reactive to light, extra-ocular motions intact. Lids and lashes normal. Conjunctiva and sclera are non-icteric and not injected. Cornea within normal limits. Periorbital areas with no swelling, redness, or edema. ENT: Nares patent. No nasal discharge, no septal abnormalities noted. Tympanic membranes are normal and external auditory canals are clear. Oropharynx with no redness, swelling, or masses, exudates, or evidence of obstruction, uvula midline. Mucous membranes moist. Neck: Trachea midline, no thyromegaly or masses palpated, and no cervical lymphadenopathy. Supple, full range of motion without nuchal rigidity, or vertebral point tenderness. No Meningismus. Chest/axilla: Normal chest wall appearance and motion. Nontender with no deformity. No lesions are appreciated. Cardiovascular: Regular rate and rhythm with a normal S1 and S2. No gallops, murmurs, or rubs. Normal PMI, no JVD. No pulse deficits. Respiratory: Lungs have equal breath sounds bilaterally, clear to auscultation and percussion. No rales, rhonchi or wheezes noted. No increased work of breathing, no retractions or nasal flaring. Abdomen/GI: Soft, non-tender, with normal bowel sounds. No distension or tympany. No guarding or rebound. No evidence of tenderness throughout. Back: No spinal tenderness. No costovertebral tenderness. Full range of motion. Skin: Warm, dry with normal turgor. Normal color with no rashes, no lesions, and no evidence of cellulitis. MS/ Extremity: Pulses equal, no cyanosis. Neurovascular intact. Full, normal range of motion. Neuro: Awake and alert, GCS 15, oriented to person, place, time, and situation. Cranial nerves II-XII grossly intact. Motor strength 5/5 in all extremities. Sensory grossly intact. Cerebellar exam normal. Normal gait. 15:11 Psych: Behavior/mood is anxious. Vital Signs: 14:01 BP 128 / 95; Pulse 98; Resp 16; Temp 97.5; Pulse Ox 100% on R/A; Weight 68.04 kg; hb Height 5 ft. 2 in. (157.48 cm); Pain 3/10; 14:43 Pulse 76; Resp 18; Pulse Ox 97% on R/A; mg2 15:46 Pulse 69; Resp 17 S; Pulse Ox 98% on R/A; jp3 15:57 BP 122 / 68; Pulse 75; Resp 18; Temp 97; Pulse Ox 100% on R/A; Pain 0/10; mg2 14:01 Body Mass Index 27.44 (68.04 kg, 157.48 cm) hb MDM: 14:05 Patient medically screened. dc 15:41 Data reviewed: vital signs, nurses notes, lab test result(s), I have discussed the dc patient's presentation/case with the attending Emergency Department Physician; and as a result, I will discharge patient. Counseling: I had a detailed discussion with the patient and/or guardian regarding: the historical points, exam findings, and any diagnostic results supporting the discharge/admit diagnosis, lab results, the need for outpatient follow up, to return to the emergency department if symptoms worsen or persist or if there are any questions or concerns that arise at home. 08/30 14:14 Order name: D-Dimer; Complete Time: 15:39 dc Administered Medications: No medications were administered Disposition: 16:12 Co-signature as Attending Physician, Roman Landry MD. rn Disposition: 08/30/19 15:42 Discharged to Home. Impression: Anxiety disorder, unspecified. - Condition is Stable. - Discharge Instructions: Panic Attacks. - Prescriptions for Hydroxyzine HCl 25 mg Oral Tablet - take 1 tablet by ORAL route every 6 hours As needed; 30 tablet. - Medication Reconciliation Form, Thank You Letter, Antibiotic Education, Prescription Opioid Use form. - Follow up: Private Physician; When: 2 - 3 days; Reason: Recheck today's complaints. - Problem is new. - Symptoms are unchanged. Signatures: Dispatcher [employer] EDMaria Eugenia Thomas, WATER MANGLE TENDER WATER MANGLE TENDER dc Roman Landry MD MD rn Baxter, Heather, RN RN Mark Landis RN RN mg2 Corrections: (The following items were deleted from the chart) 15:59 15:42 08/30/2019 15:42 Discharged to Home. Impression: Anxiety disorder, unspecified. mg2 Condition is Stable. Forms are Medication Reconciliation Form, Thank You Letter, Antibiotic Education, Prescription Opioid Use. Follow up: Private Physician; When: 2 - 3 days; Reason: Recheck today's complaints. Problem is new. Symptoms are unchanged. nh
[2019-08-30 17:18] VITALS: BP 122/68; TEMP 97; O2SAT 100
--- NOTE | 2019-08-31 09:11 | EKG ---
Test Date: 2019-08-30 Test Time: 14:11:11 Community Service Technician: JOSE DAVID MEASUREMENT RESULTS: Intervals: Rate: 108 CA: 130 QRSD: 96 QT: 334 QTc: 447 [place]: P: 73 CA: 130 QRS: 130 T: 30 INTERPRETIVE STATEMENTS: Sinus tachycardia Right axis deviation Possible Right ventricular hypertrophy Abnormal ECG Compared to ECG 08/05/2019 14:34:37 Sinus rhythm no longer present Sinus arrhythmia no longer present Electronically Signed On 08-31-19 09:10:51 OFFSET PRESS ASSISTANT by Tony Talavera
== END 2019-08-30 15:59 | disposition home or self-care (01) ==
LOC: ER 13:54
DX: F41.9 Anxiety disorder, unspecified (principal); F17.210 Nicotine dependence, cigarettes, uncomplicated
CPT/HCPCS: 36415; 85379; 93005; 99285

== ENCOUNTER 2019-09-30 22:50 | Emergency (ER) | payer OTHER ==
--- OUTSIDE RECORDS SUMMARY | 2019-09-30 22:52 | XMS REPORT ---
:1995 [facility] Address [address] [place] [address] Care Team Providers Name Role Phone Unavailable Unavailable Unavailable Problems This patient has no known problems. Allergies, Adverse Reactions, Alerts This patient has no known allergies or adverse reactions. Medications This patient has no known medications.
--- NOTE | 2019-09-30 23:22 | EDPHYS ---
Physician Documentation [facility] Name: Yesica Islas Age: 24 yrs Sex: Female : 1995 Arrival Date: 09/30/2019 Time: 22:54 Bed 20 Private MD: ED Physician Mich Mai HPI: 09/30 23:30 This 24 yrs old Female presents to ER via Ambulatory with complaints of Jaw snw Pain, Ear Pain. 23:30 Onset: The symptoms/episode began/occurred suddenly, 1 week(s) ago, and became worse snw today. Associated signs and symptoms: Pertinent positives: carpal spasms, heart racing, anxiety. It is unknown whether or not the patient has had similar symptoms in the past. It is unknown whether or not the patient has recently seen a physician. 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 - Social history:: Smoking status: Patient uses tobacco products, denies chronic smoking, but will smoke occasionally. - Ebola Screening: : Patient negative for fever greater than or equal to 101.5 degrees Fahrenheit, and additional compatible Ebola Virus Disease symptoms Patient denies exposure to infectious person Patient denies travel to an Ebola-affected area in the 21 days before illness onset No symptoms or risks identified at this time. ROS: 23:26 Constitutional: Negative for fever, chills, and weight loss, Eyes: Negative for injury, snw pain, redness, and discharge, ENT: Negative for injury, pain, and discharge, Neck: Negative for injury and swelling, +pain to posterior left neck, ear, dental pain Cardiovascular: Negative for chest pain, palpitations, and edema, Respiratory: Negative for shortness of breath, cough, wheezing, and pleuritic chest pain, Abdomen/GI: Negative for abdominal pain, nausea, vomiting, diarrhea, and constipation, Back: Negative for injury and pain, : Negative for injury, bleeding, discharge, and swelling, MS/Extremity: Negative for injury and deformity, Skin: Negative for injury, rash, and discoloration, Neuro: Negative for headache, weakness, numbness, tingling, and seizure. 23:26 Psych: Positive for anxiety, heart starts racing, hands shake, fingers draw up in intervals. Exam: 23:26 Constitutional: This is a well developed, well nourished patient who is awake, alert, snw and in no acute distress. Head/Face: Normocephalic, atraumatic. Eyes: Pupils equal round and reactive to light, extra-ocular motions intact. Lids and lashes normal. Conjunctiva and sclera are non-icteric and not injected. Cornea within normal limits. Periorbital areas with no swelling, redness, or edema. Neck: Trachea midline, no thyromegaly or masses palpated, and no cervical lymphadenopathy. Supple, full range of motion without nuchal rigidity, or vertebral point tenderness. No Meningismus. + left anterior cervical and posterior cervical lymphadenopathy Chest/axilla: Normal chest wall appearance and motion. Nontender with no deformity. No lesions are appreciated. Cardiovascular: Regular rate and rhythm with a normal S1 and S2. No gallops, murmurs, or rubs. Normal PMI, no JVD. No pulse deficits. Respiratory: Lungs have equal breath sounds bilaterally, clear to auscultation and percussion. No rales, rhonchi or wheezes noted. No increased work of breathing, no retractions or nasal flaring. Abdomen/GI: Soft, non-tender, with normal bowel sounds. No distension or tympany. No guarding or rebound. No evidence of tenderness throughout. Back: No spinal tenderness. No costovertebral tenderness. Full range of motion. Skin: Warm, dry with normal turgor. Normal color with no rashes, no lesions, and no evidence of cellulitis. MS/ Extremity: Pulses equal, no cyanosis. Neurovascular intact. Full, normal range of motion. Neuro: Awake and alert, GCS 15, oriented to person, place, time, and situation. Cranial nerves II-XII grossly intact. Motor strength 5/5 in all extremities. Sensory grossly intact. Cerebellar exam normal. Normal gait. 23:26 ENT: Dental exam: dental caries, pain, that is moderate, specifically in the upper left first molar (#14). 23:26 Psych: Behavior/mood is pleasant, anxious, Affect is calm. Vital Signs: 23:09 BP 142 / 87; Pulse 87; Resp 16 S; Temp 98.2(O); Pulse Ox 96% on R/A; Weight 68.04 kg ca1 (R); Height 5 ft. 3 in. (160.02 cm) (R); Pain 9/10; 23:09 Body Mass Index 26.57 (68.04 kg, 160.02 cm) ca1 MDM: 23:12 Patient medically screened. snw 23:30 Data reviewed: vital signs, nurses notes. Data interpreted: Pulse oximetry: on room air snw is 96 %. Interpretation: acceptable. Counseling: I had a detailed discussion with the patient and/or guardian regarding: the historical points, exam findings, and any diagnostic results supporting the discharge/admit diagnosis, the presence of at least one elevated blood pressure reading (>120/80) during this emergency department visit, the need for outpatient follow up, to return to the emergency department if symptoms worsen or persist or if there are any questions or concerns that arise at home. Special discussion: I have referred the patient to see his PCP for further evaluation of high blood pressure. Based on the history and exam findings, there is no indication for further emergent testing or inpatient evaluation. I discussed with the patient/guardian the need to see a dentist for further evaluation of the symptoms. I discussed with the patient/guardian the need to see the primary care provider for further evaluation of the symptoms. Administered Medications: 23:23 Drug: Clindamycin 300 mg Route: PO; ca1 23:31 Follow up: Response: Medication administered at discharge. ca1 23:24 Drug: [place] 5 mg-325 mg 1 tabs {Note: RASS - 0.} Route: PO; ca1 23:31 Follow up: Response: Medication administered at discharge.; RASS: Alert and Calm (0) ca1 Disposition: 10/01 00:15 Co-signature as Attending Physician, Mich Mai MD I agree with the assessment and kdr plan of care. Disposition: 09/30/19 23:21 Discharged to Home. Impression: Hyperventilation, Dental caries. - Condition is Stable. - Discharge Instructions: Dental Pain, Hypertension, Hyperventilation, Diet and Dental Disease, Preventive Dental Care, Adult. - Prescriptions for Clindamycin HCl 300 mg Oral Capsule - take 1 capsule by ORAL route every 6 hours for 10 days; 40 capsule. Mobic 7.5 mg Oral Tablet - take 1 tablet by ORAL route once daily take with food; 20 tablet. promethazine 25 mg Oral Tablet - take 1 tablet by ORAL route every 6 hours As needed; 20 tablet. - Work release form, Medication Reconciliation Form, Thank You Letter, Antibiotic Education, Prescription Opioid Use form. - Follow up: Emergency Department; When: As needed; Reason: Worsening of condition. Follow up: Private Physician; When: 2 - 3 days; Reason: Recheck today's complaints, Continuance of care, Re-evaluation by your physician. Signatures: Mich Mai MD MD kdr Therrien, Shelly, JOSEPHINE-C CREAM TESTER-Bricew Lisa Renee RN RN ca1 Corrections: (The following items were deleted from the chart) 09/30 23:30 23:26 Constitutional: This is a well developed, well nourished patient who is awake, snw alert, and in no acute distress. Head/Face: Normocephalic, atraumatic. Eyes: Pupils equal round and reactive to light, extra-ocular motions intact. Lids and lashes normal. Conjunctiva and sclera are non-icteric and not injected. Cornea within normal limits. Periorbital areas with no swelling, redness, or edema. Neck: Trachea midline, no thyromegaly or masses palpated, and no cervical lymphadenopathy. Supple, full range of motion without nuchal rigidity, or vertebral point tenderness. No Meningismus. Chest/axilla: Normal chest wall appearance and motion. Nontender with no deformity. No lesions are appreciated. Cardiovascular: Regular rate and rhythm with a normal S1 and S2. No gallops, murmurs, or rubs. Normal PMI, no JVD. No pulse deficits. Respiratory: Lungs have equal breath sounds bilaterally, clear to auscultation and percussion. No rales, rhonchi or wheezes noted. No increased work of breathing, no retractions or nasal flaring. Abdomen/GI: Soft, non-tender, with normal bowel sounds. No distension or tympany. No guarding or rebound. No evidence of tenderness throughout. Back: No spinal tenderness. No costovertebral tenderness. Full range of motion. Skin: Warm, dry with normal turgor. Normal color with no rashes, no lesions, and no evidence of cellulitis. MS/ Extremity: Pulses equal, no cyanosis. Neurovascular intact. Full, normal range of motion. Neuro: Awake and alert, GCS 15, oriented to person, place, time, and situation. Cranial nerves II-XII grossly intact. Motor strength 5/5 in all extremities. Sensory grossly intact. Cerebellar exam normal. Normal gait. snw 23:32 23:21 09/30/2019 23:21 Discharged to Home. Impression: Hyperventilation; Dental caries. ca1 Condition is Stable. Forms are Medication Reconciliation Form, Thank You Letter, Antibiotic Education, Prescription Opioid Use. Follow up: Emergency Department; When: As needed; Reason: Worsening of condition. Follow up: Private Physician; When: 2 - 3 days; Reason: Recheck today's complaints, Continuance of care, Re-evaluation by your physician. snw
--- NOTE | 2019-09-30 23:22 | ER ---
Nurse's Notes [facility] Name: Yesica Islas Age: 24 yrs Sex: Female : 1995 Arrival Date: 09/30/2019 Time: 22:54 Bed 20 Private MD: Diagnosis: Hyperventilation;Dental caries Presentation: 09/30 23:04 Presenting complaint: Patient states: L ear pain and back of head on the L side that ca1 radiates to the jaw and throat for about 2 months now. Reports N/V, ringing of L ear. Denies fever. Transition of care: patient was not received from another setting of care. Onset of symptoms was September 30, 2019. Risk Assessment: Do you want to hurt yourself or someone else? Patient reports no desire to harm self or others. Initial Sepsis Screen: Does the patient meet any 2 criteria? No. Patient's initial sepsis screen is negative. Does the patient have a suspected source of infection? No. Patient's initial sepsis screen is negative. Care prior to arrival: None. 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 - Social history:: Smoking status: Patient uses tobacco products, denies chronic smoking, but will smoke occasionally. - Ebola Screening: : Patient negative for fever greater than or equal to 101.5 degrees Fahrenheit, and additional compatible Ebola Virus Disease symptoms Patient denies exposure to infectious person Patient denies travel to an Ebola-affected area in the 21 days before illness onset No symptoms or risks identified at this time. Screenin:11 Abuse screen: Denies threats or abuse. Denies injuries from another. Nutritional ca1 screening: No deficits noted. Tuberculosis screening: No symptoms or risk factors identified. Fall Risk None identified. Assessment: 23:11 General: Appears in no apparent distress. comfortable, Behavior is calm, cooperative, ca1 appropriate for age. Pain: Complains of pain in left ear, left base of the skull and left mandible Pain currently is 9 out of 10 on a pain scale. Neuro: Level of Consciousness is awake, alert, obeys commands, Oriented to person, place, time, situation, Appropriate for age. Cardiovascular: Heart tones S1 S2 present Capillary refill < 3 seconds Patient's skin is warm and dry. Respiratory: Airway is patent Respiratory effort is even, unlabored, Respiratory pattern is regular, symmetrical, Breath sounds are clear bilaterally. GI: Abdomen is round non-distended, Bowel sounds present X 4 quads. Abd is soft and non tender X 4 quads. Reports nausea, vomiting. : No deficits noted. No signs and/or symptoms were reported regarding the genitourinary system. EENT: Tympanic membrane clear on left ear and right ear Ear canal clear on left ear and right ear. Derm: Skin is intact, is healthy with good turgor, Skin is pink, warm \T\ dry. Musculoskeletal: Circulation, motion, and sensation intact. Capillary refill < 3 seconds, Range of motion: intact in all extremities. Vital Signs: 23:09 BP 142 / 87; Pulse 87; Resp 16 S; Temp 98.2(O); Pulse Ox 96% on R/A; Weight 68.04 kg ca1 (R); Height 5 ft. 3 in. (160.02 cm) (R); Pain 9/10; 23:09 Body Mass Index 26.57 (68.04 kg, 160.02 cm) ca1 ED Course: 22:54 Patient arrived in ED. cl3 22:57 [facility] snw 22:57 Mich Mai MD is Attending Physician. snw 23:00 Lisa Renee RN is Primary Nurse. ca1 23:08 Triage completed. ca1 23:09 Arm band placed on right wrist. ca1 23:11 Patient has correct armband on for positive identification. Bed in low position. Call ca1 light in reach. Side rails up X 1. Pulse ox on. NIBP on. Warm blanket given. 23:31 No provider procedures requiring assistance completed. Patient did not have IV access ca1 during this emergency room visit. Administered Medications: 23:23 Drug: Clindamycin 300 mg Route: PO; ca1 23:31 Follow up: Response: Medication administered at discharge. ca1 23:24 Drug: [place] 5 mg-325 mg 1 tabs {Note: RASS - 0.} Route: PO; ca1 23:31 Follow up: Response: Medication administered at discharge.; RASS: Alert and Calm (0) ca1 Outcome: 23:21 Discharge ordered by MD. farias 23:31 Discharged to home ambulatory, with family. ca1 23:31 Condition: stable 23:31 Discharge instructions given to patient, Instructed on discharge instructions, follow up and referral plans. medication usage, Demonstrated understanding of instructions, follow-up care, medications, Prescriptions given X 3. 23:32 Patient left the ED. ca1 Signatures: Sadia Garcia, ALIGNER-C ALIGNER-Csnw Lisa Renee RN RN ca1 Breanne Pope cl3
[2019-09-30] MEDS ORDERED: HYDROCODONE/APAP 5/325 MG TAB ONE (23:26)
[2019-09-30 23:39] VITALS: BP 142/87; TEMP 98.2; O2SAT 96
== END 2019-09-30 23:32 | disposition home or self-care (01) ==
LOC: ER 22:50
DX: K02.9 Dental caries, unspecified (principal); Z72.0 Tobacco use
CPT/HCPCS: 99283

== ENCOUNTER 2020-01-20 02:06 | Emergency (ER) | payer OTHER ==
--- OUTSIDE RECORDS SUMMARY | 2020-01-20 02:10 | XMS REPORT ---
:1995 Author Organization [facility] t Address [address] [place] [address] Care Team Providers Name Role Phone Unavailable Unavailable Unavailable Problems This patient has no known problems. Allergies, Adverse Reactions, Alerts This patient has no known allergies or adverse reactions. Medications This patient has no known medications.
--- NOTE | 2020-01-20 02:28 | ER ---
Nurse's Notes [facility] Name: Yesica Islas Age: 24 yrs Sex: Female : 1995 Arrival Date: 01/20/2020 Time: 02:11 Bed 19 Private MD: Diagnosis: Acute pharyngitis Presentation: 01/19 02:17 Chief complaint: Patient states: Yesterday started having pain to the left ear, and sg pain in the left side of neck, denies headache/sensitivity to light, denies having pain in back of neck. Coronavirus screen: Proceed with normal triage. Ebola Screen: Patient negative for fever greater than or equal to 101.5 degrees Fahrenheit, and additional compatible Ebola Virus Disease symptoms Patient denies exposure to infectious person. Patient denies travel to an Ebola-affected area in the 21 days before illness onset. No symptoms or risks identified at this time. Initial Sepsis Screen: Does the patient meet any 2 criteria? No. Patient's initial sepsis screen is negative. Does the patient have a suspected source of infection? No. Patient's initial sepsis screen is negative. Risk Assessment: Do you want to hurt yourself or someone else? Patient reports no desire to harm self or others. Onset of symptoms was January 19, 2020. Care prior to arrival: None. Transition of care: patient was not received from another setting of care. 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 - Social history:: Smoking status: Patient reports the use of cigarette tobacco products, 3-5 cigs per day, Patient/guardian denies using alcohol, street drugs, The patient lives with family. - Family history:: not pertinent. Screenin:34 Abuse screen: Denies threats or abuse. Nutritional screening: No deficits noted. jb4 Tuberculosis screening: No symptoms or risk factors identified. Fall Risk None identified. Assessment: 02:34 General: Appears in no apparent distress. comfortable, Behavior is calm, cooperative, jb4 appropriate for age. Pain: Complains of pain in left ear Pain radiates to left cheek and left mandible Pain currently is 5 out of 10 on a pain scale. Quality of pain is described as pressure, Pain began 6 months ago Is intermittent. Neuro: Level of Consciousness is awake, alert, obeys commands, Oriented to person, place, time, situation. Cardiovascular: Patient's skin is warm and dry. Respiratory: Airway is patent Respiratory effort is even, unlabored, Respiratory pattern is regular, symmetrical. GI: Abdomen is flat, non-distended. : No signs and/or symptoms were reported regarding the genitourinary system. EENT: No signs and/or symptoms were reported regarding the EENT system. Derm: Skin is intact, Skin is pink, warm \T\ dry. Musculoskeletal: Circulation, motion, and sensation intact. Range of motion: intact in all extremities. ED Course: 02:11 Patient arrived in ED. cf2 02:13 Forrest Driver RN is Primary Nurse. jb4 02:14 Dangelo Tyson MD is Attending Physician. ma2 02:15 Arm band placed on. sg 02:19 Triage completed. sg 02:34 Patient has correct armband on for positive identification. Bed in low position. Call jb4 light in reach. Side rails up X 1. Pulse ox on. NIBP on. 02:34 No provider procedures requiring assistance completed. Patient did not have IV access jb4 during this emergency room visit. Administered Medications: No medications were administered Outcome: 02:28 Discharge ordered by . ma2 02:34 Discharged to home ambulatory. jb4 02:34 Condition: stable 02:34 Discharge instructions given to patient, Instructed on discharge instructions, follow up and referral plans. medication usage, Demonstrated understanding of instructions, follow-up care, medications, Prescriptions given X 2. 02:38 Patient left the ED. jb4 Signatures: Iftikhar Houser RN RN Forrest Driver RN RN [facility] Dangelo Tyson MD MD [facility] Dash Smith 2
--- NOTE | 2020-01-20 02:29 | EDPHYS ---
Physician Documentation [facility] Name: Yesica Islas Age: 24 yrs Sex: Female : 1995 Arrival Date: 01/20/2020 Time: 02:11 Bed 19 Private MD: ED Physician Daneglo Tyson HPI: 01/19 02:26 This 24 yrs old Female presents to ER via Ambulatory with complaints of ma2 Vomiting, Ear Pain, Sore Throat. 02:26 Onset: The symptoms/episode began/occurred gradually, 6 day(s) ago. Associated signs ma2 and symptoms: Pertinent negatives: belching, diarrhea, flatulence, hematuria, nausea. Severity of symptoms: At their worst the symptoms were very mild in the emergency department the symptoms are unchanged. The patient has not experienced similar symptoms in the past. 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 - Social history:: Smoking status: Patient reports the use of cigarette tobacco products, 3-5 cigs per day, Patient/guardian denies using alcohol, street drugs, The patient lives with family. - Family history:: not pertinent. ROS: 02:26 Constitutional: Negative for fever, chills, and weight loss. ma2 02:26 All other systems are negative. Exam: 02:26 Constitutional: This is a well developed, well nourished patient who is awake, alert, ma2 and in no acute distress. Head/Face: Normocephalic, atraumatic. Eyes: Pupils equal round and reactive to light, extra-ocular motions intact. Lids and lashes normal. Conjunctiva and sclera are non-icteric and not injected. Cornea within normal limits. Periorbital areas with no swelling, redness, or edema. ENT: miild bilateral tonsellitis, otherwise Nares patent. No nasal discharge, no septal abnormalities noted. Tympanic membranes are normal and external auditory canals are clear. Oropharynx with no redness, swelling, or masses, exudates, or evidence of obstruction, uvula midline. Mucous membranes moist. Neck: Trachea midline, no thyromegaly or masses palpated, and no cervical lymphadenopathy. Supple, full range of motion without nuchal rigidity, or vertebral point tenderness. No Meningismus. Chest/axilla: Normal chest wall appearance and motion. Nontender with no deformity. No lesions are appreciated. Cardiovascular: Regular rate and rhythm with a normal S1 and S2. No gallops, murmurs, or rubs. Normal PMI, no JVD. No pulse deficits. Respiratory: Lungs have equal breath sounds bilaterally, clear to auscultation and percussion. No rales, rhonchi or wheezes noted. No increased work of breathing, no retractions or nasal flaring. Abdomen/GI: Soft, non-tender, with normal bowel sounds. No distension or tympany. No guarding or rebound. No evidence of tenderness throughout. MDM: 02:14 Patient medically screened. ma2 02:26 Differential diagnosis: Nonspecific abd pain, gastritis, viral gastroenteritis, ma2 gastroenteritis. Data reviewed: vital signs, nurses notes. Counseling: I had a detailed discussion with the patient and/or guardian regarding: the historical points, exam findings, and any diagnostic results supporting the discharge/admit diagnosis, the presence of at least one elevated blood pressure reading (>120/80) during this emergency department visit, the need for outpatient follow up. Administered Medications: No medications were administered Disposition: 01/20/20 02:28 Discharged to Home. Impression: Acute pharyngitis. - Condition is Stable. - Discharge Instructions: Pharyngitis. - Prescriptions for Diclofenac Sodium 75 mg Oral Tablet Sustained Release - take 1 tablet by ORAL route 2 times per day; 30 tablet. Zithromax Z- Edgar 250 mg Oral Tablet - take 1 tablet by ORAL route as directed for 5 days Day 1 - take two (2) tablets one time. Day 2, 3, 4 , 5 take one (1) tablet once daily.; 6 tablet. - Medication Reconciliation Form, Thank You Letter, Antibiotic Education, Prescription Opioid Use form. - Follow up: Private Physician; When: Tomorrow; Reason: Continuance of care. Signatures: Iftikhar Houser RN RN sg Forrest Driver RN RN jb4 Dangelo Tyson MD MD ma2 Corrections: (The following items were deleted from the chart) 02:38 02:28 01/20/2020 02:28 Discharged to Home. Impression: Acute pharyngitis. Condition is jb4 Stable. Forms are Medication Reconciliation Form, Thank You Letter, Antibiotic Education, Prescription Opioid Use. Follow up: Private Physician; When: Tomorrow; Reason: Continuance of care. ma2
== END 2020-01-20 02:38 | disposition home or self-care (01) ==
LOC: ER 02:06
DX: J02.9 Acute pharyngitis, unspecified (principal); Z72.0 Tobacco use

== ENCOUNTER 2020-01-27 07:41 | Emergency (ER) | payer OTHER ==
--- OUTSIDE RECORDS SUMMARY | 2020-01-27 07:52 | XMS REPORT ---
:1995 Author Organization [facility] t Address [address] [place] [address] Care Team Providers Name Role Phone Unavailable Unavailable Unavailable Problems This patient has no known problems. Allergies, Adverse Reactions, Alerts This patient has no known allergies or adverse reactions. Medications This patient has no known medications.
--- NOTE | 2020-01-27 08:30 | RAD REPORT ---
EXAM DESCRIPTION: RAD - Chest Pa And Lat (2 Views) - 01/27/2020 8:11 am CLINICAL HISTORY: CHEST PAIN COMPARISON: August 2019 TECHNIQUE: Frontal and lateral views of the chest were obtained. FINDINGS: The lungs are clear of a focal mass or consolidation. Slight hazy interstitial opacificati on left base at the diaphragm may be slight respiration motion artifact rather than early edema or in filtrate. Heart size is normal and central vasculature is within normal limits. No pleural effusio n or pneumothorax seen. No acute bony finding noted. No aortic abnormality. IMPRESSION: No acute cardiopulmonary process confirmed.
--- NOTE | 2020-01-27 08:35 | ER ---
Nurse's Notes [facility] Name: Yesica Islas Age: 24 yrs Sex: Female : 1995 Arrival Date: 01/27/2020 Time: 07:43 Bed 7 Private MD: Diagnosis: Chest pain, unspecified Presentation: 01/26 07:53 Chief complaint: Patient states: left upper chest pain radiating up to left side of iw neck for 2-3 months, for most of the day, described as tightness and sometimes sharp pain with deep breathing. Coronavirus screen: Proceed with normal triage. Patient denies a cough. Patient denies shortness of breath or difficulty breathing. Patient denies measured and/or subjective temperature greater than 100.4F prior to today's visit. Patient denies travel on a cruise ship or to a country the [facility] currently lists as an affected area. Patient denies contact with known and/or suspected case of COVID-19. Ebola Screen: Patient negative for fever greater than or equal to 101.5 degrees Fahrenheit, and additional compatible Ebola Virus Disease symptoms Patient denies exposure to infectious person. Patient denies travel to an Ebola-affected area in the 21 days before illness onset. No symptoms or risks identified at this time. Initial Sepsis Screen: Does the patient meet any 2 criteria? No. Patient's initial sepsis screen is negative. Does the patient have a suspected source of infection? No. Patient's initial sepsis screen is negative. Risk Assessment: Do you want to hurt yourself or someone else? Patient reports no desire to harm self or others. Onset of symptoms was October 2019. 07:53 Method Of Arrival: Ambulatory iw 07:53 Acuity: KOFI 3 iw Triage Assessment: 07:55 General: Appears in no apparent distress. comfortable, well developed, Behavior is sv calm, cooperative, appropriate for age. Pain: Complains of pain in left supraclavicular area, left clavicle and anterior aspect of left upper chest. Neuro: Level of Consciousness is awake, alert, obeys commands, Oriented to person, place, time, situation, Gait is steady. Respiratory: Respiratory effort is even, unlabored, Respiratory pattern is regular, symmetrical. Derm: Skin is pink, warm \T\ dry. Historical: - Allergies: 07:55 No Known Allergies; iw - Home Meds: 07:55 None [Active]; iw - PMHx: 07:55 Anxiety; UTI; iw - PSHx: 07:55 ; iw - Immunization history:: Adult Immunizations up to date. - Family history:: not pertinent. - Social history:: Smoking status: . - Hospitalizations: : No recent hospitalization is reported. Screenin:55 Abuse screen: Denies threats or abuse. Denies injuries from another. Nutritional sv screening: No deficits noted. Tuberculosis screening: No symptoms or risk factors identified. Fall Risk None identified. Assessment: 08:31 Reassessment: Patient appears in no apparent distress at this time. No changes from sv previously documented assessment. Patient and/or family updated on plan of care and expected duration. Pain level reassessed. Patient is alert, oriented x 3, equal unlabored respirations, skin warm/dry/pink. 08:40 Reassessment: Patient appears in no apparent distress at this time. No changes from sv previously documented assessment. Patient and/or family updated on plan of care and expected duration. Pain level reassessed. Patient is alert, oriented x 3, equal unlabored respirations, skin warm/dry/pink. Vital Signs: 07:53 BP 117 / 84; Pulse 82; Resp 16; Temp 98.0; Pulse Ox 99% on R/A; Weight 61.23 kg; Height iw 5 ft. 3 in. (160.02 cm); 08:40 BP 108 / 77; Pulse 79; Resp 16; Pulse Ox 99% ; sv 07:53 Body Mass Index 23.91 (61.23 kg, 160.02 cm) iw ED Course: 07:43 Patient arrived in ED. ag5 07:45 Roman Landry MD is Attending Physician. rn 07:55 Triage completed. iw 07:55 Arm band placed on. iw 07:55 Patient has correct armband on for positive identification. Bed in low position. Call sv light in reach. Pulse ox on. NIBP on. 08:00 Patient maintains SpO2 saturation greater than 95% on room air. sv 08:05 Jessica Arriaga, PIPO is Primary Nurse. sv 08:08 XRAY Chest Pa And Lat (2 Views) In Process Unspecified. EDMS 08:30 Awaiting radiology results. sv 08:40 No provider procedures requiring assistance completed. Patient did not have IV access sv during this emergency room visit. Administered Medications: 08:40 Drug: Motrin 800 mg Route: PO; sv 08:40 Follow up: Response: Medication administered at discharge. sv Outcome: 08:34 Discharge ordered by . rn 08:40 Discharged to home ambulatory. sv 08:40 Condition: stable 08:40 Discharge instructions given to patient, Instructed on discharge instructions, follow up and referral plans. Demonstrated understanding of instructions, follow-up care. 08:41 Patient left the ED. sv Signatures: Dispatcher [employer] Jessica Masterson RN RN sv Williams, Irene, RN RN iw Nieto, Roman, MD MD rn Gaskin, Candice ag5
--- NOTE | 2020-01-27 08:35 | EDPHYS ---
Physician Documentation [facility] Name: Yesica Islas Age: 24 yrs Sex: Female : 1995 Arrival Date: 01/27/2020 Time: 07:43 Bed 7 Private MD: ED Physician Roman Landry HPI: 01/26 08:02 This 24 yrs old Female presents to ER via Ambulatory with complaints of Chest rn Pain. 08:02 The patient or guardian reports chest pain that is located primarily in the anterior rn chest wall, left. The pain radiates to Associated signs and symptoms: Pertinent positives: None. Pertinent negatives: abdominal pain, cough, diaphoresis, lower extremity swelling, near syncope, palpitations, recent travel, shortness of breath, syncope, vomiting. The chest pain is described as aching. Duration: The patient or guardian reports multiple episodes, that are intermittent. Modifying factors: The symptoms are alleviated by nothing. the symptoms are aggravated by nothing. Severity of pain: At its worst the pain was mild in the emergency department the pain is unchanged. The patient has experienced similar episodes in the past. The patient has been recently seen at the [facility] Emergency Department. Reports left upper outer chest pain for 2 months, daily, not associated with anything specific, reports feels dull and like "leg soreness". No cough/fever/sob. No trauma. No famhx of early cardiac problems. . Historical: - Allergies: 07:55 No Known Allergies; iw - Home Meds: 07:55 None [Active]; iw - PMHx: 07:55 Anxiety; UTI; iw - PSHx: 07:55 ; iw - Immunization history:: Adult Immunizations up to date. - Family history:: not pertinent. - Social history:: Smoking status: . - Hospitalizations: : No recent hospitalization is reported. ROS: 08:02 Constitutional: Negative for fever, chills, and weight loss, Eyes: Negative for injury, rn pain, redness, and discharge, Neck: Negative for injury, pain, and swelling, Cardiovascular: Negative for palpitations, and edema, Respiratory: Negative for shortness of breath, cough, wheezing, and pleuritic chest pain, Abdomen/GI: Negative for abdominal pain, nausea, vomiting, diarrhea, and constipation, Back: Negative for injury and pain, MS/Extremity: Negative for injury and deformity, Skin: Negative for injury, rash, and discoloration, Neuro: Negative for headache, weakness, numbness, tingling, and seizure. Exam: 08:01 ECG was reviewed by the Attending Physician. rn 08:02 Constitutional: This is a well developed, well nourished patient who is awake, alert, rn and in no acute distress. Ambulatory to room and bathroom without assistance or difficulty. Head/Face: Normocephalic, atraumatic. Cardiovascular: Regular rate and rhythm with a normal S1 and S2. No JVD. No pulse deficits. Respiratory: Lungs have equal breath sounds bilaterally, clear to auscultation. No rales, rhonchi or wheezes noted. No increased work of breathing, no retractions or nasal flaring. Abdomen/GI: soft, non-tender Skin: Warm, dry MS/ Extremity: Pulses equal, no cyanosis. Neuro: Awake and alert, GCS 15 Vital Signs: 07:53 BP 117 / 84; Pulse 82; Resp 16; Temp 98.0; Pulse Ox 99% on R/A; Weight 61.23 kg; Height iw 5 ft. 3 in. (160.02 cm); 08:40 BP 108 / 77; Pulse 79; Resp 16; Pulse Ox 99% ; sv 07:53 Body Mass Index 23.91 (61.23 kg, 160.02 cm) iw MDM: 07:45 Patient medically screened. rn 08:02 Differential diagnosis: acute pericarditis, anxiety, chest wall pain, costochondritis, rn esophagitis, gastritis, gastroesophageal reflux disease (GERD), mitral valve prolapse, pericarditis, pleurisy, pneumothorax. 08:31 Data reviewed: vital signs, nurses notes, lab test result(s), EKG, radiologic studies, rn plain films. Test interpretation: by ED physician or midlevel provider: ECG, plain radiologic studies, CXR neg for pneumonia/pneumothorax. 08:33 Special discussion: Based on the patient's history, exam, and Dx evaluation, there is rn no indication for emergent intervention or inpatient Tx. It is understood by the patient/guardian that if the Sx's persist or worsen they need to return immediately for re-evaluation. I discussed with the patient/guardian in detail that at this point there is no indication for admission to the hospital. It is understood, however, that if the symptoms persist or worsen the patient needs to return immediately for re-evaluation. ED course: PERC negative, CXR negative, EKG nonspecific, no murmur on exam, will dc home with pcp f/u as has been happening for 2 months and normal vitals. . 08:34 Counseling: I had a detailed discussion with the patient and/or guardian regarding: rn smoking cessation. 01/26 08:02 Order name: Urine Dipstick--Ancillary (enter results); Complete Time: 08:37 em1 01/26 08:02 Order name: Urine --Ancillary (enter results); Complete Time: 08:37 em1 01/26 07:55 Order name: XRAY Chest Pa And Lat (2 Views); Complete Time: 08:33 rn 01/26 07:55 Order name: EKG; Complete Time: 07:56 rn 01/26 07:55 Order name: EKG - Nurse/Tech; Complete Time: 08:01 rn 01/26 07:55 Order name: Urine Test (obtain specimen); Complete Time: 08:00 rn EC:01 Rate is 75 beats/min. Rhythm is regular. Right axis deviation noted. QRS is positive in rn lead aVF and negative in lead I. MO interval is normal. QRS interval is normal. QT interval is normal. No Q waves. T waves are Normal. No ST changes noted. Clinical impression: NSR w/ Non-specific ST/T Changes. Interpreted by me. Reviewed by me. Administered Medications: 08:40 Drug: Motrin 800 mg Route: PO; sv 08:40 Follow up: Response: Medication administered at discharge. sv Disposition: 01/27/20 08:34 Discharged to Home. Impression: Chest pain, unspecified. - Condition is Stable. - Discharge Instructions: Nonspecific Chest Pain. - Medication Reconciliation Form, Thank You Letter, Antibiotic Education, Prescription Opioid Use form. - Follow up: Private Physician; When: As needed; Reason: Recheck today's complaints, Re-evaluation by your physician. - Problem is an ongoing problem. - Symptoms are unchanged. Signatures: Dispatcher [employer] Jessica Masterson RN RN sv Williams, Irene, RN RN iw Nieto, Roman, MD MD yarn rewinder: (The following items were deleted from the chart) 08:41 08:34 01/27/2020 08:34 Discharged to Home. Impression: Chest pain, unspecified. sv Condition is Stable. Forms are Medication Reconciliation Form, Thank You Letter, Antibiotic Education, Prescription Opioid Use. Follow up: Private Physician; When: As needed; Reason: Recheck today's complaints, Re-evaluation by your physician. Problem is an ongoing problem. Symptoms are unchanged. rn
[2020-01-27 08:37] LABS: Urine Blood NEGATIVE (NEG); Urine Glucose NEGATIVE (NEG); Urine Protein NEGATIVE (NEG); Urine Specific Gravity >1.030 (1.005-1.030); Urine pH 5.5 (5.0-7.0)
[2020-01-27] MEDS ORDERED: IBUPROFEN 400 MG TAB ONE (08:40)
[2020-01-27 08:47] VITALS: TEMP 98; O2SAT 99
[2020-01-27 08:49] VITALS: BP 108/77
--- NOTE | 2020-01-28 06:49 | EKG ---
Test Date: 2020-01-27 Test Time: 07:57:32 Metal Sprayer Protective Coating: TIM MEASUREMENT RESULTS: Intervals: Rate: 75 MS: 134 QRSD: 84 QT: 370 QTc: 413 Moore: P: 87 MS: 134 QRS: 146 T: 32 INTERPRETIVE STATEMENTS: Normal sinus rhythm Right axis deviation Possible Right ventricular hypertrophy Abnormal ECG Compared to ECG 08/30/2019 14:11:11 Sinus tachycardia no longer present Electronically Signed On 01-28-20 06:48:34 CDT by Mustapha Dior
== END 2020-01-27 08:41 | disposition home or self-care (01) ==
LOC: ER 07:41
DX: R07.9 Chest pain, unspecified (principal)
CPT/HCPCS: 71046; 81003; 81025; 93005; 99284

== ENCOUNTER 2020-03-21 20:42 | Emergency (ER) | payer OTHER ==
--- OUTSIDE RECORDS SUMMARY | 2020-03-21 20:44 | XMS REPORT | Continuity of Care Document ---
:1995 Author Organization [facility] t Address [address] [place] [address] Care Team Providers Name Role Phone Unavailable Unavailable Unavailable Problems This patient has no known problems. Allergies, Adverse Reactions, Alerts This patient has no known allergies or adverse reactions. Medications This patient has no known medications. Procedures This patient has no known procedures. Results This patient has no known results.
--- NOTE | 2020-03-21 22:54 | ER ---
Nurse's Notes [facility] Name: Yesica sIlas Age: 24 yrs Sex: Female : 1995 Arrival Date: 03/21/2020 Time: 20:48 Bed External Waiting Private MD: Diagnosis: Presentation: 03/21 20:59 Chief complaint: Patient states: Positive test March 02. Started not feeling ll1 well after eating lunch today at work. Took a nap, still feels nauseated and just not feeling well. N/V is frequent during . G3, P1. Coronavirus screen: Proceed with normal triage. Patient denies a cough. Patient denies shortness of breath or difficulty breathing. Patient denies measured and/or subjective temperature greater than 100.4F prior to today's visit. Patient denies travel on a cruise ship or to a country the [facility] currently lists as an affected area. Patient denies contact with known and/or suspected case of COVID-19. Ebola Screen: Patient denies travel to an Ebola-affected area in the 21 days before illness onset. Initial Sepsis Screen: Does the patient meet any 2 criteria? No. Patient's initial sepsis screen is negative. Risk Assessment: Do you want to hurt yourself or someone else? Patient reports no desire to harm self or others. Onset of symptoms was March 21, 2020. 20:59 Method Of Arrival: Ambulatory ll1 20:59 Acuity: KOFI 3 ll1 Historical: - Allergies: 21:02 No Known Drug Allergies; ll1 - PMHx: 21:02 Anxiety; UTI; ll1 - PSHx: 21:02 ; ll1 - Immunization history:: Flu vaccine is up to date. - Social history:: Smoking status: Patient denies any tobacco usage or history of. Patient/guardian denies using alcohol, street drugs, tobacco products. Vital Signs: 20:59 BP 111 / 72; Pulse 85; Resp 17; Temp 97.4; Pulse Ox 100% ; Pain 0/10; ll1 ED Course: 20:48 Patient arrived in ED. ag3 21:01 Triage completed. ll1 21:02 Arm band placed on. ll1 Administered Medications: No medications were administered Outcome: 22:53 Patient left the ED. sg Signatures: Iftikhar Houser RN RN Felisha Perkins3 Della Pope, RN RN ll1
[2020-03-21 23:00] VITALS: BP 111/72; TEMP 97.4; O2SAT 100
== END 2020-03-21 22:53 | disposition left against medical advice (07) ==
LOC: ER 20:42
DX: Z53.21 Procedure and treatment not carried out due to patient leaving prior to being seen by health care provider (principal)
CPT/HCPCS: 99281

== ENCOUNTER 2020-06-20 23:38 | Emergency (ER) | payer OTHER ==
--- OUTSIDE RECORDS SUMMARY | 2020-06-20 23:41 | XMS REPORT | Continuity of Care Document ---
:1995 Author Organization [facility] t Address [address] [place] [address] Dr. Messer [address] [place] [id number] Care Team Providers Name Role Phone Unavailable Unavailable Unavailable Problems This patient has no known problems. Allergies, Adverse Reactions, Alerts This patient has no known allergies or adverse reactions. Medications This patient has no known medications. Procedures This patient has no known procedures. Results This patient has no known results.
--- NOTE | 2020-06-20 23:58 | ER ---
Nurse's Notes [facility] Name: Yesica Islas Age: 24 yrs Sex: Female : 1995 Arrival Date: 06/20/2020 Time: 23:41 Bed 19 Private MD: Diagnosis: Disorder of teeth and supporting structures, unspecified-pain Presentation: 06/20 23:53 Chief complaint: Patient states: I have had a tooth ache for the past 3 days that will jb4 not go away. Coronavirus screen: Client denies travel out of the [place] in the last 14 days. At this time, the client does not indicate any symptoms associated with coronavirus-19. Ebola Screen: No symptoms or risks identified at this time. Initial Sepsis Screen: Does the patient meet any 2 criteria? No. Patient's initial sepsis screen is negative. Does the patient have a suspected source of infection? No. Patient's initial sepsis screen is negative. Risk Assessment: Do you want to hurt yourself or someone else? Patient reports no desire to harm self or others. Onset of symptoms was June 20, 2020. Transition of care: patient was not received from another setting of care. 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 - Social history:: Smoking status: Patient denies any tobacco usage or history of. Patient/guardian denies using alcohol, street drugs. Screenin/21 00:00 Abuse screen: Denies threats or abuse. Nutritional screening: No deficits noted. jb4 Tuberculosis screening: No symptoms or risk factors identified. Fall Risk None identified. Assessment: 00:00 General: Appears in no apparent distress. uncomfortable, Behavior is calm, cooperative, jb4 appropriate for age. Pain: Complains of pain in mouth Pain does not radiate. Pain currently is 10 out of 10 on a pain scale. Pain began 2-3 days ago. Neuro: Level of Consciousness is awake, alert, obeys commands, Oriented to person, place, time, situation. Cardiovascular: Patient's skin is warm and dry. Respiratory: Airway is patent Respiratory effort is even, unlabored, Respiratory pattern is regular, symmetrical. GI: No signs and/or symptoms were reported involving the gastrointestinal system. : No signs and/or symptoms were reported regarding the genitourinary system. EENT: Oral mucosa is moist. Derm: Skin is intact, Skin is pink, warm \T\ dry. Musculoskeletal: Circulation, motion, and sensation intact. Range of motion: intact in all extremities. 00:18 Reassessment: Patient and/or family updated on plan of care and expected duration. Pain jb4 level reassessed. Patient is alert, oriented x 3, equal unlabored respirations, skin warm/dry/pink. Pt verbalized understanding of d/c and follow up instructions, Denies questions or concerns. Ambulated out of ED with steady gait. Vital Signs: 06/20 23:53 BP 141 / 72; Pulse 79; Resp 16; Temp 98.9(TE); Pulse Ox 100% on R/A; Weight 70.76 kg jb4 (R); Height 5 ft. 3 in. (160.02 cm) (R); Pain 10/10; 06/21 00:18 BP 118 / 72; Pulse 70; Resp 16; Pulse Ox 100% on R/A; jb4 06/20 23:53 Body Mass Index 27.63 (70.76 kg, 160.02 cm) jb4 ED Course: 06/20 23:41 Patient arrived in ED. bp1 23:47 Waqas Aguillon PA is PHCP. cp 23:47 Arpan Ruiz MD is Attending Physician. cp 23:53 Forrest Driver, PIPO is Primary Nurse. jb4 23:54 Triage completed. jb4 23:54 Arm band placed on right wrist. jb4 06/21 00:00 Patient has correct armband on for positive identification. Bed in low position. Call jb4 light in reach. Side rails up X 1. 00:18 No provider procedures requiring assistance completed. Patient did not have IV access jb4 during this emergency room visit. Administered Medications: 00:05 Drug: Augmentin 875 mg Route: PO; jb4 00:15 Follow up: Response: No adverse reaction; Medication administered at discharge. jb4 00:05 Drug: Tylenol 650 mg Route: PO; jb4 00:15 Follow up: Response: Medication administered at discharge. jb4 Outcome: 06/20 23:58 Discharge ordered by . gurvinder 06/21 00:19 Discharged to home ambulatory. jb4 Condition: stable Discharge instructions given to patient, Instructed on discharge instructions, follow up and referral plans. medication usage, Demonstrated understanding of instructions, follow-up care, medications, Prescriptions given X 1. 00:19 Patient left the ED. jb4 Signatures: Waqas Aguillon PA PA cp Bryson, James, RN RN jb4 Sneha Harris [facility]
--- NOTE | 2020-06-20 23:58 | EDPHYS ---
Physician Documentation [facility] Name: Yesica Islas Age: 24 yrs Sex: Female : 1995 Arrival Date: 06/20/2020 Time: 23:41 Bed 19 Private MD: ED Physician Arpan Ruiz HPI: 06/20 23:56 This 24 yrs old Female presents to ER via Ambulatory with complaints of cp Toothache. 23:56 The patient presents with pain. Onset: The symptoms/episode began/occurred 3 day(s) ago.cp 23:56 Duration: The symptoms are continuous, and are steadily getting worse. Associated signs cp and symptoms: Pertinent positives: pain, Pertinent negatives: anorexia, dysphagia, fever, inability to eat, swelling, facial. Severity of symptoms: in the emergency department the symptoms are unchanged, despite home interventions. 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 - Social history:: Smoking status: Patient denies any tobacco usage or history of. Patient/guardian denies using alcohol, street drugs. ROS: 23:56 Constitutional: Negative for body aches, chills, fever, poor PO intake. cp 23:56 ENT: Positive for dental pain, Negative for ear pain, sore throat, difficulty cp swallowing, difficulty handling secretions. 23:56 Cardiovascular: Negative for chest pain. 23:56 Respiratory: Negative for cough, shortness of breath, wheezing. 23:56 Skin: Negative for rash. 23:56 Neuro: Negative for headache. 23:56 All other systems are negative. Exam: 23:57 Constitutional: The patient appears in no acute distress, alert, awake, non-toxic, well cp developed, well nourished. 23:57 Head/Face: Normocephalic, atraumatic. cp 23:57 Eyes: Periorbital structures: appear normal, Conjunctiva: normal, no exudate, no injection, Lids and lashes: appear normal, bilaterally. 23:57 ENT: External ear(s): are unremarkable, Ear canal(s): are normal, clear, TM's: dullness, bilaterally, Nose: is normal, Mouth: Lips: moist, Oral mucosa: pink and intact, moist, abscess, is not appreciated, Posterior pharynx: Airway: no evidence of obstruction, patent, Tonsils: are normal in appearance, swelling, is not appreciated, erythema, is not appreciated, Dental exam: abscess, is not appreciated, dental caries, that is mild, diffusely, gum swelling, not appreciated, pain, that is mild, specifically in the upper left first bicuspid (#12) and upper left second bicuspid (#13), Voice: is normal. 23:57 Neck: Lymph nodes: no appreciated lymphadenopathy. 23:57 Chest/axilla: Inspection: normal. 23:57 Cardiovascular: Rate: normal. 23:57 Respiratory: the patient does not display signs of respiratory distress, Respirations: normal, no use of accessory muscles, labored breathing, is not present. 23:57 Abdomen/GI: Inspection: gravid appearance. Vital Signs: 23:53 BP 141 / 72; Pulse 79; Resp 16; Temp 98.9(TE); Pulse Ox 100% on R/A; Weight 70.76 kg jb4 (R); Height 5 ft. 3 in. (160.02 cm) (R); Pain 10/10; 06/21 00:18 BP 118 / 72; Pulse 70; Resp 16; Pulse Ox 100% on R/A; jb4 06/20 23:53 Body Mass Index 27.63 (70.76 kg, 160.02 cm) jb4 MDM: 06/20 23:49 Patient medically screened. cp 23:56 Differential diagnosis: dental caries, dental abscess, pericoronitis. cp 23:57 Data reviewed: vital signs, nurses notes, and as a result, I will discharge patient. cp 23:57 Counseling: I had a detailed discussion with the patient and/or guardian regarding: the cp historical points, exam findings, and any diagnostic results supporting the discharge/admit diagnosis, the need for outpatient follow up, for definitive care, a dentist, to return to the emergency department if symptoms worsen or persist or if there are any questions or concerns that arise at home. Administered Medications: 06/21 00:05 Drug: Augmentin 875 mg Route: PO; jb4 00:15 Follow up: Response: No adverse reaction; Medication administered at discharge. jb4 00:05 Drug: Tylenol 650 mg Route: PO; jb4 00:15 Follow up: Response: Medication administered at discharge. jb4 Disposition: 00:25 Chart complete. cp 06:57 Co-signature as Attending Physician, Arpan Ruiz MD. mh7 Disposition: 06/20/20 23:58 Discharged to Home. Impression: Disorder of teeth and supporting structures, unspecified - pain. - Condition is Stable. - Discharge Instructions: Dental Pain. - Prescriptions for Amoxicillin 875 mg Oral Tablet - take 1 tablet by ORAL route every 12 hours for 10 days; 20 tablet. - Medication Reconciliation Form, Thank You Letter, Antibiotic Education, Prescription Opioid Use form. - Follow up: Private Physician; When: 1 - 2 days; Reason: Recheck today's complaints. - Problem is new. - Symptoms have improved. Signatures: Waqas Aguillon PA PA cp Forrest Driver RN RN [facility] Arpan Ruiz MD MD 7 Corrections: (The following items were deleted from the chart) 00:19 09 23:58 06/20/2020 23:58 Discharged to Home. Impression: Disorder of teeth and jb4 supporting structures, unspecified - pain. Condition is Stable. Forms are Medication Reconciliation Form, Thank You Letter, Antibiotic Education, Prescription Opioid Use. Follow up: Private Physician; When: 1 - 2 days; Reason: Recheck today's complaints. Problem is new. Symptoms have improved. cp
[2020-06-21] MEDS ORDERED: AMOX/K CLAV 875 MG TAB ONE (00:11)
[2020-06-21] MEDS ORDERED: ACETAMINOPHEN 325 MG TABLET ONE (00:11)
[2020-06-21 00:25] VITALS: TEMP 98.9; O2SAT 100
[2020-06-21 00:28] VITALS: BP 118/72
== END 2020-06-21 00:19 | disposition home or self-care (01) ==
LOC: ER 23:38
DX: K08.9 Disorder of teeth and supporting structures, unspecified (principal)
CPT/HCPCS: 99283

== ENCOUNTER 2020-12-10 23:14 | Emergency (ER) | payer OTHER ==
--- OUTSIDE RECORDS SUMMARY | 2020-12-10 23:17 | XMS REPORT | Continuity of Care Document ---
:1995 Author Organization [facility] t Address [address] [place] [address] Care Team Providers Name Role Phone Pietro Rodas MD Attending Clinician Nurse, Women's [facility] Attending Clinician Unavailable Only, Test Attending Clinician Unavailable Doctor Unassigned, Name Attending Clinician Unavailable 2, Lab Attending Clinician Unavailable Jorje CRAIG Attending Clinician Fe MARQUIS Attending Clinician Pietro Rodas MD Admitting Clinician Problems This patient has no known problems. Allergies, Adverse Reactions, Alerts This patient has no known allergies or adverse reactions. Medications This patient has no known medications. Procedures This patient has no known procedures. Encounters Start End Encounter Admission Attending Care Care Encounter Source Date/Time Date/Time Type Type Clinicians Facility Department ID 2020-11-23 2020-11-23 Routine Dorie Rodas [facility] [id number] 14:01:45 14:34:40 Pietro Epps [id number] Visit [place] [id number] [place] [phone] [place] [address] Building 2020-11-11 2020-11-11 Nurse Nurse, [facility] [id number] 10:47:22 11:08:04 Visit [facility] [place] [id number] Health [place] [id number] Profess[place] [phone] [address] 2020-10-28 2020-10-29 Hospital Dorie Rodas [facility] [id number] 05:30:00 22:30:00 Encounter Cam [place] [id number] [place] [id number] [place] [id number] 2020-10-27 2020-10-27 Laboratory Only, [facility] [id number] 10:13:02 10:28:02 Only Test [place] [id number] [place] [id number] [place] [id number] 2020-10-21 2020-10-21 Routine Dorie Rodas [facility] [id number] 14:52:05 16:19:18 Cam [place] [id number] Visit [place] [id number] Professio [id number] [address] 2020-10-21 2020-10-21 Orders Doctor LESLEE [id number] 00:00:00 00:00:00 Only Unassigned, DEIRDRE [id number] [place] [facility] [id number] 2020-10-14 2020-10-14 Routine Dorie Rodas [facility] [id number] 15:47:58 16:38:20 Cam [place] [id number] Visit [place] [id number] Professio [phone] [address] 2020-10-14 2020-10-14 Ur Coordinator 2, [facility] [place] [id number] 15:31:53 15:46:53 Visit [place] [id number] [place] [id number] Professio [phone] [address] 2020-10-14 2020-10-14 Case Dorie Rodas [facility] [id number] 00:00:00 00:00:00 Management Cam [place] [id number] [place] [id number] Profess[place] [phone] [address] 2020-10-11 2020-10-11 Telephone Dorie Rodas ORJOSEPH [id number] 00:00:00 00:00:00 Cam [place] [id number] [place] [id number] Professio [phone] [address] 2020-10-07 2020-10-07 Routine Dorie Rodas ORJOSEPH [id number] 08:18:49 09:18:03 Cam [place] [id number] Visit [place] [id number] Professio [phone] [address] 2020-10-06 2020-10-06 Telephone Dorie Rodas ORJOSEPH [id number] 00:00:00 00:00:00 Cam [place] [id number] [place] [id number] Professio [id number] [address] 2020-10-02 2020-10-02 Emergency Edgardo Recinos [facility] 1.2.840. [id number] 14:07:00 19:02:00 Dorie Rodas [place] [id number] [place] [id number] [place] [id number] 2020-09-22 2020-09-22 Routine Dorie Rodas ORJOSEPH [id number] 15:22:19 15:43:16 Cam [place] [id number] Visit [place] [id number] Professio [phone] [address] 2020-09-13 2020-09-13 Orders Doctor LESLEE [id number] 00:00:00 00:00:00 Only Unassigned, DEIRDRE [id number] [place] [facility] [id number] [id number] 2020-09-08 2020-09-08 Routine Fe [facility] [id number] 10:04:39 10:19:39 Christel Epps [id number] Visit [place] [id number] Professio [phone] [address] [address] Building 2020-09-01 2020-09-01 Case Dorie Rodas [facility] [id number] 00:00:00 00:00:00 Management Pietro Epps [id number] [place] [id number] Professio [phone] [facility] 134 [facility] Results This patient has no known results.
[2020-12-11] MEDS ORDERED: DIAZEPAM 2 MG TABLET ONE (00:04)
[2020-12-11 01:46] LABS: BUN Blood Urea Nitrogen 9 mg/dL (7-18); Bicarbonate 26 mmol/L (21-32); Glucose Level 97 mg/dL (74-106); Magnesium 2.1 mg/dL (1.8-2.4); Potassium 3.1 mmol/L (3.5-5.1); Sodium Level 140 mmol/L (136-145)
--- NOTE | 2020-12-11 01:49 | ER ---
Nurse's Notes [facility] Name: Yesica Islas Age: 25 yrs Sex: Female : 1995 Arrival Date: 12/10/2020 Time: 23:15 Bed 19 Private MD: Diagnosis: Anxiety disorder, unspecified;Hypokalemia Presentation: 12/10 23:36 Chief complaint: Patient states: Reports anxiety, hands numb and tremors, chest pain, sf difficulty sitting still, face numbness. Has had similar episodes but no official dx of anxiety. Coronavirus screen: Client denies travel out of the [place] in the last 14 days. At this time, the client does not indicate any symptoms associated with coronavirus-19. Ebola Screen: Patient negative for fever greater than or equal to 101.5 degrees Fahrenheit, and additional compatible Ebola Virus Disease symptoms Patient denies exposure to infectious person. Patient denies travel to an Ebola-affected area in the 21 days before illness onset. No symptoms or risks identified at this time. Initial Sepsis Screen: Does the patient meet any 2 criteria? No. Patient's initial sepsis screen is negative. Does the patient have a suspected source of infection? No. Patient's initial sepsis screen is negative. Risk Assessment: Do you want to hurt yourself or someone else?. Onset of symptoms was December 10, 2020. 23:36 Method Of Arrival: Ambulatory 23:36 Acuity: KOFI 3 sf Triage Assessment: 23:38 General: Appears in no apparent distress. Behavior is anxious, restless, Denies feeling sf ill. Pain: Denies pain. EENT: No signs and/or symptoms were reported regarding the EENT system. Neuro: Level of Consciousness is awake, alert, Oriented to person, place, time, situation, Moves all extremities. Gait is steady, Speech is normal, Facial symmetry appears normal, Reports numbness in face, right hand and left hand Denies weakness headache. Cardiovascular: No deficits noted. Capillary refill < 3 seconds Patient's skin is warm and dry. Respiratory: No deficits noted. Airway is patent Respiratory effort is even, unlabored, Respiratory pattern is regular, symmetrical. GI: Abdomen is non-distended, Reports nausea, normal bowel habits, Patient currently denies abdominal pain, vomiting. : No signs and/or symptoms were reported regarding the genitourinary system. Derm: No signs and/or symptoms reported regarding the dermatologic system. Musculoskeletal: No signs and/or symptoms reported regarding the musculoskeletal system. 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 - Social history:: Smoking status: Patient denies any tobacco usage or history of. Patient/guardian denies using alcohol, street drugs, IV drugs. - Family history:: not pertinent. - Hospitalizations: : No recent hospitalization is reported. Screenin:44 Abuse screen: Denies threats or abuse. Denies injuries from another. Nutritional sf screening: No deficits noted. Tuberculosis screening: No symptoms or risk factors identified. Never had TB. Possible symptoms: None Risk factors: None. Fall Risk None identified. No fall in past 12 months (0 pts). No secondary diagnosis (0 pts). No IV (0 pts). Ambulatory Aid- None/Bed Rest/Nurse Assist (0 pts). Gait- Normal/Bed Rest/Wheelchair (0 pts) Mental Status- Oriented to own ability (0 pts). Total Rader Fall Scale indicates No Risk (0-24 pts). Assessment: 23:43 Reassessment: SEE TRIAGE NOTE. 12/11 01:20 Reassessment: Patient appears in no apparent distress at this time. Patient and/or sf family updated on plan of care and expected duration. Pain level reassessed. Patient is alert, oriented x 3, equal unlabored respirations, skin warm/dry/pink. Was sleeping, easily arousable Patient states feeling better. Patient states symptoms have improved. 02:05 Reassessment: Patient appears in no apparent distress at this time. Patient and/or jb4 family updated on plan of care and expected duration. Pain level reassessed. Patient is alert, oriented x 3, equal unlabored respirations, skin warm/dry/pink. Patient states feeling better. Patient states symptoms have improved. Vital Signs: 12/10 23:36 BP 119 / 72; Pulse 100; Resp 16; Temp 98.1; Pulse Ox 100% ; Weight 71.21 kg; Height 5 sf ft. 3 in. (160.02 cm); Pain 0/10; 23:36 Body Mass Index 27.81 (71.21 kg, 160.02 cm) sf ED Course: 23:15 Patient arrived in ED. cl3 23:18 Roman Landry MD is Attending Physician. rn 23:28 Iftikhar Arellano, RN is Primary Nurse. sf 23:38 Triage completed. sf 23:42 Arm band placed on right wrist. Patient placed in an exam room, on a stretcher. sf 23:43 Patient has correct armband on for positive identification. Placed in gown. Bed in low sf position. Call light in reach. Side rails up X 1. Patient refuses continuous monitoring due to anxiety. Door closed. Noise minimized. Visitors limited. Lights dimmed. Warm blanket given. Verbal reassurance given. 23:44 EKG done. sf 23:49 Initial lab(s) drawn, by ED staff, sent to lab. sf 23:51 Basic Metabolic Panel Sent. 3 23:51 Magnesium Sent. 3 12/11 01:20 Lab(s) recollected, by ED staff, sent to lab. sf 02:05 No provider procedures requiring assistance completed. Patient did not have IV access jb4 during this emergency room visit. Administered Medications: 12/10 23:48 Drug: Valium 2 mg Route: PO; sf 12/11 00:15 Follow up: Response: No adverse reaction; Marked relief of symptoms jb4 02:02 Not Given (Other Intervention Used): Potassium Chloride 40 mEq PO once jb4 02:02 Drug: Potassium Chloride 40 mEq Route: PO; jb4 02:05 Follow up: Response: Medication administered at discharge. jb4 Outcome: 01:49 Discharge ordered by . rn 02:05 Discharged to home ambulatory. jb4 02:05 Condition: stable 02:05 Discharge instructions given to patient, Instructed on discharge instructions, follow up and referral plans. Demonstrated understanding of instructions, follow-up care. 02:06 Patient left the ED. jb4 Signatures: Roman Landry MD MD rn Bryson, James, RN RN jb4 Ad Allen jp3 Breanne Pope cl3 Iftikhar Arellano, PIPO RN sf Corrections: (The following items were deleted from the chart) 03 23:42 23:38 PSHx: None; sf sf
--- NOTE | 2020-12-11 01:50 | EDPHYS ---
Physician Documentation [facility] Name: Yesica Islas Age: 25 yrs Sex: Female : 1995 Arrival Date: 12/10/2020 Time: 23:15 Bed 19 Private MD: ED Physician Roman Landry HPI: 12/10 23:39 This 25 yrs old Female presents to ER via Ambulatory with complaints of rn Anxiety. 23:39 Reports thinks might be having anxiety attack, was at [employer], no trigger, felt rn cramps in hands, tingling of face, tingling of hands, and was spreading to entire body, has gotten better but still having cramps in hands. Has had anxiety attacks before. No fever. No thyroid problems. Does not take medication. No new supplements. . Onset: The symptoms/episode began/occurred just prior to arrival. Severity of symptoms: At their worst the symptoms were moderate in the emergency department the symptoms have improved. The patient has experienced similar episodes in the past. The patient has not recently seen a physician. Reports identical symptoms with anxiety attacks in past but doesn't normally last this long. . 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 - Social history:: Smoking status: Patient denies any tobacco usage or history of. Patient/guardian denies using alcohol, street drugs, IV drugs. - Family history:: not pertinent. - Hospitalizations: : No recent hospitalization is reported. ROS: 23:39 Constitutional: Negative for fever, chills, and weight loss, Eyes: Negative for injury, rn pain, redness, and discharge, Neck: Negative for injury, pain, and swelling, Cardiovascular: Negative for chest pain, palpitations, and edema, Respiratory: Negative for shortness of breath, cough, wheezing, and pleuritic chest pain, Abdomen/GI: Negative for abdominal pain, nausea, vomiting, diarrhea, and constipation, MS/Extremity: Negative for injury and deformity, Skin: Negative for injury, rash, and discoloration, Neuro: Negative for headache, weakness, and seizure. 23:39 All other systems are negative. Exam: 23:39 Constitutional: This is a well developed, well nourished patient who is awake, alert, rn sitting upright in bed, opening and closing hands, continuously putting head in hands. Head/Face: Normocephalic, atraumatic. Eyes: Pupils equal round and reactive to light, extra-ocular motions intact. Lids and lashes normal. Conjunctiva and sclera are non-icteric and not injected. Cornea within normal limits. Periorbital areas with no swelling, redness, or edema. ENT: MMM Cardiovascular: Regular rate and rhythm. No pulse deficits. Respiratory: No increased work of breathing, no retractions or nasal flaring. Abdomen/GI: soft, non-tender Skin: Warm, dry MS/ Extremity: Pulses equal, no cyanosis. + spasms of hands, able to release and relax, and then comes back. Neuro: Awake and alert, GCS 15, oriented to person, place, time, and situation. Cranial nerves II-XII grossly intact. Motor strength 5/5 in all extremities. Sensory grossly intact. Cerebellar exam normal. Normal gait. 23:49 ECG was reviewed by the Attending Physician. rn Vital Signs: 23:36 BP 119 / 72; Pulse 100; Resp 16; Temp 98.1; Pulse Ox 100% ; Weight 71.21 kg; Height 5 sf ft. 3 in. (160.02 cm); Pain 0/10; 23:36 Body Mass Index 27.81 (71.21 kg, 160.02 cm) MDM: 23:25 Patient medically screened. rn 12/11 01:48 Differential Diagnosis anxiety, electrolyte disorder. Data reviewed: vital signs, rn nurses notes, lab test result(s), EKG, and as a result, I will discharge patient. Counseling: I had a detailed discussion with the patient and/or guardian regarding: the historical points, exam findings, and any diagnostic results supporting the discharge/admit diagnosis, lab results, the need for outpatient follow up, to return to the emergency department if symptoms worsen or persist or if there are any questions or concerns that arise at home. Response to treatment: the patient's symptoms have markedly improved after treatment, and as a result, I will discharge patient. Special discussion: I discussed with the patient/guardian in detail that at this point there is no indication for admission to the hospital. It is understood, however, that if the symptoms persist or worsen the patient needs to return immediately for re-evaluation. 12/10 23:31 Order name: Basic Metabolic Panel; Complete Time: 01:47 rn 12/10 23:31 Order name: Magnesium; Complete Time: :47 rn 12/10 23:31 Order name: EKG; Complete Time: 23:31 rn 12/10 23:31 Order name: EKG - Nurse/Tech; Complete Time: 23:44 rn EC/12 23:49 Rate is 78 beats/min. Rhythm is regular. Right axis deviation noted. QRS is positive in rn lead aVF and negative in lead I. CT interval is normal. QRS interval is normal. QT interval is normal. No Q waves. T waves are Normal. No ST changes noted. Clinical impression: NSR w/ Non-specific ST/T Changes. Interpreted by me. Reviewed by me. Administered Medications: 23:48 Drug: Valium 2 mg Route: PO; 12/11 00:15 Follow up: Response: No adverse reaction; Marked relief of symptoms [facility] 02:02 Not Given (Other Intervention Used): Potassium Chloride 40 mEq PO once 4 02:02 Drug: Potassium Chloride 40 mEq Route: PO; 4 02:05 Follow up: Response: Medication administered at discharge. 4 Disposition: 12/11/20 01:49 Discharged to Home. Impression: Anxiety disorder, unspecified, Hypokalemia. - Condition is Stable. - Discharge Instructions: Generalized Anxiety Disorder, Hypokalemia. - Medication Reconciliation Form, Thank You Letter, Antibiotic Education, Prescription Opioid Use form. - Follow up: Private Physician; When: As needed; Reason: Recheck today's complaints, Re-evaluation by your physician. - Problem is an acute exacerbation. - Symptoms have improved. Signatures: Dispatcher [employer] EDRoman Adams MD MD rn Bryson, James, RN RN jb4 Fitzpatrick, Steven, RN RN sf Corrections: (The following items were deleted from the chart) 12/10 23:42 23:38 PSHx: None; sf sf 12/11 02:02 12/10 23:31 IV Saline Lock ordered. priya casillas 12/11 02:06 01:49 12/11/2020 01:49 Discharged to Home. Impression: Anxiety disorder, unspecified; jb4 Hypokalemia. Condition is Stable. Forms are Medication Reconciliation Form, Thank You Letter, Antibiotic Education, Prescription Opioid Use. Follow up: Private Physician; When: As needed; Reason: Recheck today's complaints, Re-evaluation by your physician. Problem is an acute exacerbation. Symptoms have improved. priya
[2020-12-11] MEDS ORDERED: POTASSIUM CL SA 10 MEQ TAB PO ONE (02:14)
[2020-12-11 02:19] VITALS: BP 119/72; TEMP 98.1; O2SAT 100
--- NOTE | 2020-12-11 08:29 | EKG ---
Test Date: 2020-12-10 Test Time: 23:42:02 Community Living Coach: JOSE DAVID MEASUREMENT RESULTS: Intervals: Rate: 78 GA: 138 QRSD: 90 QT: 396 QTc: 451 [place]: P: 70 GA: 138 QRS: 128 T: 60 INTERPRETIVE STATEMENTS: Normal sinus rhythm with sinus arrhythmia Right axis deviation Possible Right ventricular hypertrophy Abnormal ECG Compared to ECG 01/27/2020 07:57:32 No significant changes Electronically Signed On 12-11-20 08:28:47 BRIDGES SUPERVISOR by Mustapha Dior
== END 2020-12-11 02:06 | disposition home or self-care (01) ==
LOC: ER 23:14
DX: E87.6 Hypokalemia (principal)
CPT/HCPCS: 36415; 80048; 83735; 93005; 99283

== ENCOUNTER 2021-03-07 17:54 | Emergency (ER) | payer OTHER ==
--- OUTSIDE RECORDS SUMMARY | 2021-03-07 17:56 | XMS REPORT | Continuity of Care Document ---
:1995 Author Organization [facility] t Address [address] [place] [address] Care Team Providers Name Role Phone Pietro [...] Department ID 2020-11-23 2020-11-23 Routine Dorie Rodas [facility] [id number] 14:01:45 14:34:40 Pietro Epps 350.1.13.10 Visit [place] 4.2.7.2.686 [place] [phone] [place] [address] Building 2020-11-11 2020-11-11 Nurse Nurse, [facility] 1.2.840.114 [id number] 10:47:22 11:08:04 Visit [facility] [place] 350.1.13.10 Health [place] 4.2.7.2.686 Profess[place] [phone] [address] 2020-10-28 2020-10-29 Hospital Dorie Rodas [facility] 1.2.840.114 [id number] 05:30:00 22:30:00 Encounter Cam [place] 350.1.13.10 [place] 4.2.7.2.686 [place] [phone] 083 2020-10-27 2020-10-27 Laboratory Only, [facility] 1.2.840.114 [id number] 10:13:02 10:28:02 Only Test [place] 350.1.13.10 [place] 4.2.7.2.686 [place] [id number] 353 2020-10-21 2020-10-21 Routine Dorie Rodas [facility] [id number] 14:52:05 16:19:18 Cam [place] 350.1.13.10 Visit [place] 4.2.7.2.686 Profess[place] [phone] [address] 2020-10-21 2020-10-21 Orders Doctor LESLEE 1.2.840.114 [id number] 00:00:00 00:00:00 Only Unassigned, DEIRDRE 350.1.13.10 [place] [facility] 4.2.7.2.686 [id number] 009 2020-10-14 2020-10-14 Routine Dorie Rodas [facility] 1.2.341.854 [id number] 15:47:58 16:38:20 Cam [place] 350.1.13.10 Visit [place] 4.2.7.2.686 [place] [phone] [address] 2020-10-14 2020-10-14 Toppiece Cutter 2, [facility] [place] 1.2.840.114 [id number] 15:31:53 15:46:53 Visit [place] 350.1.13.10 [place] 4.2.7.2.686 Profess[place] [phone] [address] 2020-10-14 2020-10-14 Case Dorie Rodas [facility] 1.2.315.730 [id number] 00:00:00 00:00:00 Management Cam [place] 350.1.13.10 [place] 4.2.7.2.686 [place] [phone] [address] 2020-10-11 2020-10-11 Telephone Dorie Rodas [facility] 1.2.840.114 [id number] 00:00:00 00:00:00 Cam [place] 350.1.13.10 [place] 4.2.7.2.686 Profess[place] [phone] [address] 2020-10-07 2020-10-07 Routine Dorie Rodas [facility] 1.2.393.163 [id number] 08:18:49 09:18:03 Cam [place] 350.1.13.10 Visit [place] 4.2.7.2.686 [place] [phone] [address] 2020-10-06 2020-10-06 Telephone Dorie Rodas [facility] 1.2.840.114 [id number] 00:00:00 00:00:00 Cam [place] 350.1.13.10 [place] 4.2.7.2.686 [place] [phone] [address] 2020-10-02 2020-10-02 Emergency Edgardo Recinos [facility] 1.2.840. 114 [id number] 14:07:00 19:02:00 Dorie Rodas [place] 350.1.13.10 [place] 4.2.7.2.686 [place] [phone] 083 2020-09-22 2020-09-22 Routine Dorie Rodas [facility] 1.2.812.267 [id number] 15:22:19 15:43:16 Cam [place] 350.1.13.10 Visit [place] 4.2.7.2.686 [place] [phone] [address] 2020-09-13 2020-09-13 Orders Doctor LESLEE 1.2.840.114 [id number] 00:00:00 00:00:00 Only Unassigned, DEIRDRE 350.1.13.10 [place] [facility] 4.2.7.2.686 [id number] 009 2020-09-08 2020-09-08 Routine Fe [facility] 1.2.014.164 [id number] 10:04:39 10:19:39 Christel Epps 350.1.13.10 Visit [place] 4.2.7.2.686 [place] [phone] nal 134 Building 2020-09-01 2020-09-01 Case Dorie Rodas [facility] 1.2.583.635 [id number] 00:00:00 00:00:00 Management Pietro Epps 350.1.13.10 [place] 4.2.7.2.686 Profess[place] [phone] [facility] 134 [facility] Results This patient has no known results.
--- NOTE | 2021-03-07 20:18 | ER ---
Nurse's Notes [facility] Name: Yesica Islas Age: 25 yrs Sex: Female : 1995 Arrival Date: 03/07/2021 Time: 17:55 Bed Waiting Private MD: Diagnosis: Presentation: 03/07 17:58 Chief complaint: Patient states: "for about 2 years now i get chest pains with numbness jd3 to my left arm and both my legs. this happens off and on. today it happened again. i have not been seen by a doctor for this before.". Coronavirus screen: At this time, the client does not indicate any symptoms associated with coronavirus-19. Ebola Screen: Patient negative for fever greater than or equal to 101.5 degrees Fahrenheit, and additional compatible Ebola Virus Disease symptoms. Initial Sepsis Screen: Does the patient meet any 2 criteria? No. Patient's initial sepsis screen is negative. Does the patient have a suspected source of infection? No. Patient's initial sepsis screen is negative. Risk Assessment: Do you want to hurt yourself or someone else? Patient reports no desire to harm self or others. Onset of symptoms was March 07, 2021. 17:58 Method Of Arrival: Ambulatory [facility] 17:58 Acuity: KOFI 3 jd3 SAP GRC SECURITY: 18:01 LMP 02/07/2021 jd3 Historical: - Allergies: 18:01 No Known Allergies; jd3 - Home Meds: 18:01 None [Active]; jd3 - PMHx: 18:01 None; jd3 - PSHx: 18:01 ; jd3 - Immunization history:: Adult Immunizations up to date. - Social history:: Smoking status: Patient denies any tobacco usage or history of. Vital Signs: 18:01 BP 134 / 81; Pulse 110; Resp 16 S; Temp 97.8(TE); Pulse Ox 100% on R/A; Weight 68.04 kg jd3 (R); Height 5 ft. 3 in. (160.02 cm) (R); Pain 8/10; 18:01 Body Mass Index 26.57 (68.04 kg, 160.02 cm) jd3 ED Course: 17:55 Patient arrived in ED. as 18:00 Triage completed. jd3 18:03 Arm band placed on. jd3 20:00 [facility] kb 20:00 Waqas Siddiqi MD is Attending Physician. kb 20:04 Patient's name was called from ER jarvis. No response. Unable to locate patient. Will ca1 disposition as left without being seen by a provider. Administered Medications: No medications were administered Outcome: 20:17 Patient left the ED. ca1 Signatures: Debbie Rosales FNP-C FNP-Ckb Martinez, Amelia as Davies, Jonathon RN RN jd3 Lisa Renee RN RN ca1
[2021-03-07 20:23] VITALS: BP 134/81; TEMP 97.8; O2SAT 100
--- NOTE | 2021-03-09 16:02 | EKG ---
Test Date: 2021-03-07 Test Time: 18:06:27 Software Integration Developer: MEASUREMENT RESULTS: Intervals: Rate: 113 RI: 122 QRSD: 82 QT: 320 QTc: 438 Cavalier: P: 86 RI: 122 QRS: 136 T: 63 INTERPRETIVE STATEMENTS: Sinus tachycardia Right axis deviation Possible Right ventricular hypertrophy Abnormal ECG Compared to ECG 12/10/2020 23:42:02 Sinus rhythm no longer present Sinus arrhythmia no longer present Electronically Signed On 03-09-21 16:00:05 CDT by Mustapha Dior
== END 2021-03-07 20:17 | disposition left against medical advice (07) ==
LOC: ER 17:54
DX: R07.9 Chest pain, unspecified (principal); R20.0 Anesthesia of skin; Z53.21 Procedure and treatment not carried out due to patient leaving prior to being seen by health care provider
CPT/HCPCS: 93005; 99281

== ENCOUNTER 2021-03-21 12:34 | Emergency (ER) | payer OTHER ==
--- OUTSIDE RECORDS SUMMARY | 2021-03-21 12:37 | XMS REPORT | Continuity of Care Document ---
:1995 Author Organization [facility] t Address [address] [place] [address] Care Team Providers Name Role Phone Pietro [...] Department ID 2020-11-23 2020-11-23 Routine Dorie Rodas [facility] [id number] 14:01:45 14:34:40 Pietro Epps 350.1.13.10 Visit [place] 4.2.7.2.686 [place] [phone] [place] [address] Building 2020-11-11 2020-11-11 Nurse Nurse, [facility] 1.2.840.114 [id number] 10:47:22 11:08:04 Visit [facility] [place] 350.1.13.10 Health [place] 4.2.7.2.686 Profess[place] [phone] [address] 2020-10-28 2020-10-29 Hospital Dorie Rodas [facility] 1.2.840.114 [id number] 05:30:00 22:30:00 Encounter Cam [place] 350.1.13.10 [place] 4.2.7.2.686 [place] [phone] 083 2020-10-27 2020-10-27 Laboratory Only, [facility] 1.2.840.114 [id number] 10:13:02 10:28:02 Only Test [place] 350.1.13.10 [place] 4.2.7.2.686 [place] [id number] 353 2020-10-21 2020-10-21 Routine Dorie Rodas [facility] 1.2.678.440 [id number] 14:52:05 16:19:18 Cam [place] 350.1.13.10 Visit [place] 4.2.7.2.686 Professio [phone] [address] 2020-10-21 2020-10-21 Orders Doctor LESLEE 1.2.840.114 [id number] 00:00:00 00:00:00 Only Unassigned, DEIRDRE 350.1.13.10 [place] [facility] 4.2.7.2.686 [id number] 009 2020-10-14 2020-10-14 Routine Dorie Rodas [facility] 1.2.248.488 [id number] 15:47:58 16:38:20 Cam [place] 350.1.13.10 Visit [place] 4.2.7.2.686 Professio [phone] [address] 2020-10-14 2020-10-14 Hospital Chief Executive Officer 2, [facility] [place] 1.2.840.114 [id number] 15:31:53 15:46:53 Visit [place] 350.1.13.10 [place] 4.2.7.2.686 Profess[place] [phone] [address] 2020-10-14 2020-10-14 Case Dorie Rodas [facility] 1.2.911.249 [id number] 00:00:00 00:00:00 Management Cam [place] 350.1.13.10 [place] 4.2.7.2.686 Professio [phone] [address] 2020-10-11 2020-10-11 Telephone Dorie Rodas [facility] 1.2.840.114 [id number] 00:00:00 00:00:00 Cam [place] 350.1.13.10 [place] 4.2.7.2.686 Profess[place] [phone] [address] 2020-10-07 2020-10-07 Routine Dorie Rodas [facility] 1.2.558.018 [id number] 08:18:49 09:18:03 Cam [place] 350.1.13.10 Visit [place] 4.2.7.2.686 Profess[place] [phone] [address] 2020-10-06 2020-10-06 Telephone Dorie Rodas [facility] 1.2.840.114 [id number] 00:00:00 00:00:00 Cam [place] 350.1.13.10 [place] 4.2.7.2.686 Professio [phone] [address] 2020-10-02 2020-10-02 Emergency Edgardo Recinos [facility] 1.2.840. 114 [id number] 14:07:00 19:02:00 Dorie Rodas [place] 350.1.13.10 [place] 4.2.7.2.686 [place] [phone] 083 2020-09-22 2020-09-22 Routine Dorie Rodas [facility] 1.2.007.921 [id number] 15:22:19 15:43:16 Cam [place] 350.1.13.10 Visit [place] 4.2.7.2.686 Professio [phone] [address] 2020-09-13 2020-09-13 Orders Doctor LESLEE 1.2.840.114 [id number] 00:00:00 00:00:00 Only Unassigned, DEIRDRE 350.1.13.10 [place] [facility] 4.2.7.2.686 [id number] 009 2020-09-08 2020-09-08 Routine Fe [facility] 1.2.084.241 [id number] 10:04:39 10:19:39 Christel Epps 350.1.13.10 Visit [place] 4.2.7.2.686 Profess[place] [phone] nal 134 Building 2020-09-01 2020-09-01 Case Dorie Rodas [facility] 1.2.040.227 [id number] 00:00:00 00:00:00 Management Pietro Epps 350.1.13.10 [place] 4.2.7.2.686 Professio [phone] formerly [facility] 134 [facility] Results This patient has no known results.
[2021-03-21] MEDS ORDERED: ACETAMINOPHEN 500 MG TAB ONE (13:27)
[2021-03-21 14:35] LABS: SARS-COV-2 RT PCR NEGATIVE (NEGATIVE)
[2021-03-21 14:56] LABS: Urine Blood Trace-lysed (Negative); Urine Glucose Negative (Negative); Urine Protein Negative (Negative); Urine pH 7.5 (5.0-7.0)
[2021-03-21 15:55] LABS: Urine Bacteria >50 /HPF (<20); Urine RBC <5 /HPF (NONE SEEN)
--- NOTE | 2021-03-21 16:14 | ER ---
Nurse's Notes [facility] Name: Yesica Islas Age: 25 yrs Sex: Female : 1995 Arrival Date: 03/21/2021 Time: 12:41 Bed 28 Private MD: Diagnosis: Infectious mononucleosis;Urinary tract infection, site not specified Presentation: 03/21 13:02 Chief complaint: Patient states: Fever, body aches, chills, congestion since last ll1 night. Coronavirus screen: Client denies travel out of the [place] in the last 14 days. chills, congestion, cough unrelated to allergies, fatigue, fever, muscle pain, nausea, runny nose, shaking with chills, Client presents with at least one sign or symptom that may indicate coronavirus-19. Standard/surgical mask placed on the client. Ebola Screen: Patient denies travel to an Ebola-affected area in the 21 days before illness onset. Initial Sepsis Screen: Does the patient meet any 2 criteria? HR > 90 bpm. No. Patient's initial sepsis screen is negative. Does the patient have a suspected source of infection? Yes: Productive cough/pneumonia. Risk Assessment: Do you want to hurt yourself or someone else? Patient reports no desire to harm self or others. Onset of symptoms was March 20, 2021. 13:02 Method Of Arrival: Ambulatory ll1 13:02 Acuity: KOFI 4 ll1 Triage Assessment: 15:21 General: Appears in no apparent distress. Behavior is calm, cooperative. Pain: Denies ak2 pain. Historical: - Allergies: 13:02 No Known Allergies; ll1 - PMHx: 13:02 Anxiety; UTI; ll1 - PSHx: 13:02 ; ll1 - Immunization history:: Flu vaccine is not up to date. - Social history:: Smoking status: Patient denies any tobacco usage or history of. Screenin:20 Abuse screen: Denies threats or abuse. Denies injuries from another. Nutritional ak2 screening: No deficits noted. Tuberculosis screening: No symptoms or risk factors identified. Fall Risk None identified. Assessment: 15:21 General: Appears in no apparent distress. Neuro: No deficits noted. Cardiovascular: No ak2 deficits noted. Respiratory: No deficits noted. Vital Signs: 13:02 BP 132 / 77; Pulse 98; Resp 17; Temp 101.3; Pulse Ox 100% ; Weight 68.04 kg; Height 5 ll1 ft. 2 in. (157.48 cm); Pain 8/10; 15:08 BP 114 / 69; Pulse 107; Resp 16; Temp 98.6; Pulse Ox 99% ; ll1 15:22 BP 110 / 74; Pulse 89; Resp 18; Pulse Ox 99% on R/A; ak2 16:38 BP 105 / 68; Pulse 75; Resp 18; Pulse Ox 98% on R/A; ak2 13:02 Body Mass Index 27.44 (68.04 kg, 157.48 cm) ll1 ED Course: 12:41 Patient arrived in ED. as 13:01 Arm band placed on. ll1 13:04 Triage completed. ll1 13:06 De[facility]ales [facility]-C [facility]. kb 13:06 Dangelo Tyson MD is Attending Physician. kb 15:01 Urine --Ancillary (enter results) Sent. ll1 15:01 Urine Microscopic Only Sent. ll1 15:16 Minh Joseph is Primary Nurse. ak2 15:20 Patient has correct armband on for positive identification. ak2 15:20 No provider procedures requiring assistance completed. ak2 16:38 Patient did not have IV access during this emergency room visit. ak2 Administered Medications: 13:14 Drug: Tylenol 1000 mg Route: PO; ll1 Outcome: 16:13 Discharge ordered by . kb 16:38 Discharged to home ambulatory. ak2 16:38 Condition: good 16:38 Discharge instructions given to Prescriptions given X 2. 16:39 Patient left the ED. ak2 Signatures: Debbie Rosales FNP-C FNP-Cami Fernandes Lynsay, RN RN 1 Minh Joseph ak2
--- NOTE | 2021-03-21 16:15 | EDPHYS ---
Physician Documentation [facility] Name: Yesica Islas Age: 25 yrs Sex: Female : 1995 Arrival Date: 03/21/2021 Time: 12:41 Bed 28 Private MD: ED Physician Dangelo Tyson HPI: 03/21 13:11 This 25 yrs old Female presents to ER via Ambulatory with complaints of Fever, kb body aches/chills. 13:11 The patient or guardian reports cough, that is intermittent, described as mild, flu kb symptoms, low-grade fever, myalgias. Onset: The symptoms/episode began/occurred yesterday. Severity of symptoms: At their worst the symptoms were moderate, in the emergency department the symptoms are unchanged. Modifying factors: The symptoms are alleviated by nothing, the symptoms are aggravated by nothing. Associated signs and symptoms: Pertinent positives: fever, nausea, rhinorrhea, Pertinent negatives: chest pain, diarrhea, ear ache, vomiting. The patient has not experienced similar symptoms in the past. The patient has not recently seen a physician. Pt reports fever, chills, bodyaches, fatigue and decreased appetite since yesterday. . Historical: - Allergies: 13:02 No Known Allergies; ll1 - PMHx: 13:02 Anxiety; UTI; ll1 - PSHx: 13:02 ; ll1 - Immunization history:: Flu vaccine is not up to date. - Social history:: Smoking status: Patient denies any tobacco usage or history of. ROS: 13:10 Cardiovascular: Negative for chest pain, palpitations, and edema. kb 13:10 Constitutional: Positive for body aches, chills, fatigue, fever, malaise, poor PO intake. 13:10 ENT: Positive for rhinorrhea, sinus congestion. 13:10 Respiratory: Positive for cough, Negative for dyspnea on exertion, hemoptysis, orthopnea, pleurisy, shortness of breath, sputum production, wheezing. 13:10 Abdomen/GI: Positive for nausea, Negative for abdominal pain, vomiting, diarrhea. 13:10 All other systems are negative. Exam: 13:10 Constitutional: This is a well developed, well nourished patient who is awake, alert, kb and in no acute distress. Head/Face: Normocephalic, atraumatic. Cardiovascular: Regular rate and rhythm with a normal S1 and S2. No gallops, murmurs, or rubs. No pulse deficits. Respiratory: Respirations even and unlabored. No increased work of breathing, no retractions or nasal flaring. Abdomen/GI: Soft, non-tender. No distention Skin: Warm, dry with normal turgor. Normal color. MS/ Extremity: Pulses equal, no cyanosis. Neurovascular intact. Full, normal range of motion. Neuro: Awake and alert, GCS 15, oriented to person, place, time, and situation. Moves all extremities. Normal gait. Psych: Awake, alert, with orientation to person, place and time. Behavior, mood, and affect are within normal limits. 13:10 ENT: External ear(s): are unremarkable, Ear canal(s): are normal, TM's: are normal, Nose: is normal, Mouth: is normal, Posterior pharynx: is normal. Vital Signs: 13:02 BP 132 / 77; Pulse 98; Resp 17; Temp 101.3; Pulse Ox 100% ; Weight 68.04 kg; Height 5 ll1 ft. 2 in. (157.48 cm); Pain 8/10; 15:08 BP 114 / 69; Pulse 107; Resp 16; Temp 98.6; Pulse Ox 99% ; ll1 15:22 BP 110 / 74; Pulse 89; Resp 18; Pulse Ox 99% on R/A; ak2 16:38 BP 105 / 68; Pulse 75; Resp 18; Pulse Ox 98% on R/A; ak2 13:02 Body Mass Index 27.44 (68.04 kg, 157.48 cm) ll1 MDM: 13:10 Patient medically screened. kb 13:11 Data reviewed: vital signs, nurses notes. Data interpreted: Pulse oximetry: on room air kb is 100 %. Interpretation: normal. 16:13 Counseling: I had a detailed discussion with the patient and/or guardian regarding: the kb historical points, exam findings, and any diagnostic results supporting the discharge/admit diagnosis, lab results, the need for outpatient follow up, a family practitioner, to return to the emergency department if symptoms worsen or persist or if there are any questions or concerns that arise at home. 03/21 13:06 Order name: Flu kb 03/21 13:06 Order name: COVID-19 : Document "Date of Symptom Onset" if Symptomatic. 03/21 13:06 Order name: Strep 03/21 13:48 Order name: CORONAVIRUS [facility] 03/21 13:49 Order name: Influenza Screen (A [facility] 03/21 14:01 Order name: Group A Streptococcus Rapid Sc; Complete Time: 14:01 [facility] 03/21 14:35 Order name: COVID-19/FLU A+B; Complete Time: 14:36 [facility] 03/21 14:56 Order name: [place] Screen Profile 03/21 14:56 Order name: Urine Microscopic Only 03/21 14:56 Order name: Urine Dipstick-Ancillary; Complete Time: 15:00 EDID 03/21 14:57 Order name: Urine --Ancillary (enter results) me 03/21 15:01 Order name: Urine --Ancillary; Complete Time: 15:02 [facility] 03/21 15:55 Order name: Urine Microscopic Only; Complete Time: 16:01 [facility] 03/21 16:09 Order name: [place] Screen; Complete Time: 16:12 [facility] 03/21 14:56 Order name: Vital Signs; Complete Time: 16:07 kb Administered Medications: 13:14 Drug: Tylenol 1000 mg Route: PO; ll1 Disposition: 03/21/21 16:13 Discharged to Home. Impression: Infectious mononucleosis, Urinary tract infection, site not specified. - Condition is Stable. - Discharge Instructions: Urinary Tract Infection, Adult, Kbee-ur-Fetb, Infectious Mononucleosis, Evng-is-Tshn. - Prescriptions for Zofran 4 mg Oral Tablet - take 1 tablet by ORAL route every 6 hours As needed; 20 tablet. Macrobid 100 mg Oral Capsule - take 1 capsule by ORAL route every 12 hours for 10 days; 20 capsule. - Medication Reconciliation Form, Thank You Letter, Antibiotic Education, Prescription Opioid Use form. - Follow up: Emergency Department; When: As needed; Reason: Worsening of condition. Follow up: Private Physician; When: 2 - 3 days; Reason: Recheck today's complaints, Continuance of care, Re-evaluation by your physician. Signatures: Dispatcher [employer] [facility] Debbie Rosales, Della Krishnamurthy RN RN ll1 [place], Minh ak2 Corrections: (The following items were deleted from the chart) 16:39 16:13 03/21/2021 16:13 Discharged to Home. Impression: Infectious mononucleosis; ak2 Urinary tract infection, site not specified. Condition is Stable. Forms are Medication Reconciliation Form, Thank You Letter, Antibiotic Education, Prescription Opioid Use. Follow up: Emergency Department; When: As needed; Reason: Worsening of condition. Follow up: Private Physician; When: 2 - 3 days; Reason: Recheck today's complaints, Continuance of care, Re-evaluation by your physician. kb
[2021-03-21 16:52] VITALS: TEMP 98.6
[2021-03-21 16:55] VITALS: BP 105/68; O2SAT 98
== END 2021-03-21 16:39 | disposition home or self-care (01) ==
LOC: ER 12:34
DX: N39.0 Urinary tract infection, site not specified (principal); B27.90 Infectious mononucleosis, unspecified without complication; Z20.822 Contact with and (suspected) exposure to COVID-19; F41.9 Anxiety disorder, unspecified
CPT/HCPCS: 87070; 87088; 87086; 36415; 86308; 81025; 87081; 0240U; 81003; 81015; 87077; 87186; 99283

== ENCOUNTER 2021-05-18 09:07 | Emergency (ER) | payer OTHER ==
--- OUTSIDE RECORDS SUMMARY | 2021-05-18 09:09 | XMS REPORT | Continuity of Care Document ---
:1995 Author Organization [facility] t Address [address] [place] [address] [place] [address] Care Team Providers Name Role Phone Pietro [...] Department ID 2020-11-23 2020-11-23 Routine Dorie Rodas [facility] [id number] 14:01:45 14:34:40 Pietro Epps 350.1.13.10 Visit [place] 4.2.7.2.686 [place] [phone] [place] [address] Building 2020-11-11 2020-11-11 Nurse Nurse, [facility] 1.2.840.114 [id number] 10:47:22 11:08:04 Visit Women's [place] 350.1.13.10 Health [place] 4.2.7.2.686 Professio [phone] [address] 2020-10-28 2020-10-29 Hospital Dorie Rodas [facility] 1.2.840.114 [id number] 05:30:00 22:30:00 Encounter Cam [place] 350.1.13.10 [place] 4.2.7.2.686 [place] [id number] 083 2020-10-27 2020-10-27 Laboratory Only, [facility] [place] 1.2.840.114 [id number] 10:13:02 10:28:02 Only Test [place] 350.1.13.10 [place] 4.2.7.2.686 [place] [id number] 353 2020-10-21 2020-10-21 Routine Dorie Rodas [facility] 1.2.752.348 [id number] 14:52:05 16:19:18 Cam [place] 350.1.13.10 Visit [place] 4.2.7.2.686 Professio [phone] [address] 2020-10-21 2020-10-21 Orders Doctor LESLEE 1.2.840.114 [id number] 00:00:00 00:00:00 Only Unassigned, DEIRDRE 350.1.13.10 [place] [facility] 4.2.7.2.686 [id number] 009 2020-10-14 2020-10-14 Routine Dorie Rodas [facility] 1.2.023.911 [id number] 15:47:58 16:38:20 Cam [place] 350.1.13.10 Visit [place] 4.2.7.2.686 Professio [phone] [address] 2020-10-14 2020-10-14 Film Splicer 2, [facility] 1.2.840.114 [id number] 15:31:53 15:46:53 Visit [place] 350.1.13.10 [place] 4.2.7.2.686 Professio [phone] [address] 2020-10-14 2020-10-14 Case Dorie Rodas [facility] 1.2.167.605 [id number] 00:00:00 00:00:00 Management Cam [place] 350.1.13.10 [place] 4.2.7.2.686 Professio [phone] [address] 2020-10-11 2020-10-11 Telephone Dorie Rodas [facility] 1.2.840.114 [id number] 00:00:00 00:00:00 Cam [place] 350.1.13.10 [place] 4.2.7.2.686 Professio [phone] [address] 2020-10-07 2020-10-07 Routine Dorie Rodas [facility] 1.2.559.234 [id number] 08:18:49 09:18:03 Cam [place] 350.1.13.10 Visit [place] 4.2.7.2.686 Professio [phone] [address] 2020-10-06 2020-10-06 Telephone Dorie Rodas [facility] 1.2.840.114 [id number] 00:00:00 00:00:00 Cam [place] 350.1.13.10 [place] 4.2.7.2.686 Professio [phone] [address] 2020-10-02 2020-10-02 Emergency Edgardo Recinos [facility] 1.2.840. 114 [id number] 14:07:00 19:02:00 Dorie Rodas [place] 350.1.13.10 [place] 4.2.7.2.686 [place] [id number] 083 2020-09-22 2020-09-22 Routine Dorie Rodas [facility] 1.2.830.689 [id number] 15:22:19 15:43:16 Cam [place] 350.1.13.10 Visit [place] 4.2.7.2.686 Professio [phone] [address] 2020-09-13 2020-09-13 Orders Doctor LESLEE 1.2.840.114 [id number] 00:00:00 00:00:00 Only Unassigned, DEIRDRE 350.1.13.10 [place] [facility] 4.2.7.2.686 [id number] 009 2020-09-08 2020-09-08 Routine Fe [facility] 1.2.602.655 [id number] 10:04:39 10:19:39 Christel Epps 350.1.13.10 Visit [place] 4.2.7.2.686 Professio [phone] nal 134 Building 2020-09-01 2020-09-01 Case Dorie Rodas [facility] 1.2.937.490 [id number] 00:00:00 00:00:00 Management Pietro Epps 350.1.13.10 [place] 4.2.7.2.686 Professio [phone] [facility] 134 [facility] Results This patient has no known results.
--- NOTE | 2021-05-18 11:38 | ER ---
Nurse's Notes [facility] Name: Yesica Islas Age: 25 yrs Sex: Female : 1995 Arrival Date: 05/18/2021 Time: 09:11 Bed Waiting Private MD: Diagnosis: Viral infection, unspecified Presentation: 05/18 10:51 Chief complaint: Patient states: cough/ diarrhea that began 2 days ago. Wants covid ss test. Coronavirus screen: Client denies travel out of the [place] in the last 14 days. Ebola Screen: Patient denies exposure to infectious person. Patient denies travel to an Ebola-affected area in the 21 days before illness onset. Initial Sepsis Screen: Does the patient meet any 2 criteria? No. Patient's initial sepsis screen is negative. Does the patient have a suspected source of infection? No. Patient's initial sepsis screen is negative. Risk Assessment: Do you want to hurt yourself or someone else? Patient reports no desire to harm self or others. Onset of symptoms was May 16, 2021. 10:51 Method Of Arrival: Ambulatory 10:51 Acuity: KOFI 4 ss Historical: - Allergies: 12:01 No Known Allergies; ss - PMHx: 12:01 Anxiety; UTI; ss - PSHx: 12:01 section; ss Vital Signs: 10:51 BP 122 / 84; Pulse 102; Resp 16; Temp 98.7(TE); Pulse Ox 99% on R/A; ss ED Course: 09:11 Patient arrived in ED. mr 09:56 Mir Cervantes [facility] jr8 09:56 Roman Landry MD is Attending Physician. jr8 10:51 Triage completed. ss 10:51 Arm band placed on right wrist. ss 12:02 No provider procedures requiring assistance completed. Patient did not have IV access ss during this emergency room visit. Administered Medications: No medications were administered Outcome: 11:38 Discharge ordered by . jr8 12:02 Discharged to home ambulatory, with family. ss 12:02 Condition: good 12:02 Discharge instructions given to patient, Instructed on discharge instructions, follow up and referral plans. Demonstrated understanding of instructions, follow-up care. 12:02 Patient left the ED. ss Signatures: Jocelynn Sainz Shelby, RN RN ss Mir Cervantes, ARMANDO PA jr8
--- NOTE | 2021-05-18 11:39 | EDPHYS ---
Physician Documentation [facility] Name: Yesica Islas Age: 25 yrs Sex: Female : 1995 Arrival Date: 05/18/2021 Time: 09:11 Bed Waiting Private MD: ED Physician Roman Landry HPI: 05/18 10:39 This 25 yrs old Female presents to ER via Unassigned with complaints of Covid jr8 Test, Cough, Diarrhea. 10:39 The patient or guardian reports cough, that is intermittent, described as mild. Onset: jr8 The symptoms/episode began/occurred acutely, 2 day(s) ago. Severity of symptoms: At their worst the symptoms were mild, in the emergency department the symptoms are unchanged. Modifying factors: The symptoms are alleviated by nothing, the symptoms are aggravated by nothing. Associated signs and symptoms: Pertinent positives: fever. The patient has not experienced similar symptoms in the past. The patient has not recently seen a physician. This is a 25-year-old female patient that presented to the emergency room with cough and fever x2 days. Has been a patient recently diagnosed with Covid about 5 days ago and now is having similar symptoms.. Historical: - Allergies: 12:01 No Known Allergies; ss - PMHx: 12:01 Anxiety; UTI; ss - PSHx: 12:01 section; ss ROS: 10:39 Cardiovascular: Negative for chest pain, palpitations, and edema, Abdomen/GI: Negative jr8 for abdominal pain, nausea, vomiting, diarrhea, and constipation. 10:39 Constitutional: Positive for fever. 10:39 Respiratory: Positive for cough, Negative for dyspnea on exertion, shortness of breath, sputum production, wheezing. 10:39 All other systems are negative. Exam: 10:39 Constitutional: This is a well developed, well nourished patient who is awake, alert, jr8 and in no acute distress. ENT: Nares patent. No nasal discharge, no septal abnormalities noted. Tympanic membranes are normal and external auditory canals are clear. Oropharynx with no redness, swelling, or masses, exudates, or evidence of obstruction, uvula midline. Mucous membranes moist. Neck: Trachea midline, no thyromegaly or masses palpated, and no cervical lymphadenopathy. Supple, full range of motion without nuchal rigidity, or vertebral point tenderness. No Meningismus. Cardiovascular: Regular rate and rhythm with a normal S1 and S2. No gallops, murmurs, or rubs. Normal PMI, no JVD. No pulse deficits. Respiratory: Lungs have equal breath sounds bilaterally, clear to auscultation and percussion. No rales, rhonchi or wheezes noted. No increased work of breathing, no retractions or nasal flaring. Abdomen/GI: Soft, non-tender, with normal bowel sounds. No distension or tympany. No guarding or rebound. No evidence of tenderness throughout. Skin: Warm, dry with normal turgor. Normal color with no rashes, no lesions, and no evidence of cellulitis. MS/ Extremity: Pulses equal, no cyanosis. Neurovascular intact. Full, normal range of motion. Neuro: Awake and alert, GCS 15, oriented to person, place, time, and situation. Cranial nerves II-XII grossly intact. Motor strength 5/5 in all extremities. Sensory grossly intact. Vital Signs: 10:51 BP 122 / 84; Pulse 102; Resp 16; Temp 98.7(TE); Pulse Ox 99% on R/A; ss MDM: 09:57 Patient medically screened. jr8 11:37 Data reviewed: vital signs, nurses notes, lab test result(s). Data interpreted: Pulse jr8 oximetry: on room air is 99 %. Interpretation: normal. Counseling: I had a detailed discussion with the patient and/or guardian regarding: the historical points, exam findings, and any diagnostic results supporting the discharge/admit diagnosis, lab results, the need for outpatient follow up, a family practitioner, to return to the emergency department if symptoms worsen or persist or if there are any questions or concerns that arise at home. Administered Medications: No medications were administered Disposition: 14:57 Co-signature as Attending Physician, Roman Landry MD I agree with the assessment and rn plan of care. Attestation: The patient's history, exam findings, diagnostics, and a summary of any interventions or procedures was reviewed in detail with Mir ROBERTS. Disposition Summary: 05/18/21 11:38 Discharge Ordered Location: Home jr8 Problem: new jr8 Symptoms: have improved jr8 Condition: Stable jr8 Diagnosis - Viral infection, unspecified jr8 Followup: jr8 - With: Private Physician - When: 2 - 3 days - Reason: Recheck today's complaints, Continuance of care, Re-evaluation by your physician Discharge Instructions: - Discharge Summary Sheet jr8 - Viral Respiratory Infection jr8 - COVID-19 jr8 Forms: - Medication Reconciliation Form jr8 - Thank You Letter jr8 - Antibiotic Education jr8 - Prescription Opioid Use jr8 Signatures: Dispatcher [employer] EDMS Roman Landry MD MD rn Smirch, Shelby, RN RN ss Roszak, Josh, PA PA jr8 Corrections: (The following items were deleted from the chart) 11:34 09:59 CORONAVIRUS+MR.LAB.BRZ ordered. EDNY EDMS
[2021-05-18 12:26] VITALS: BP 122/84; TEMP 98.7; O2SAT 99
== END 2021-05-18 12:02 | disposition home or self-care (01) ==
LOC: ER 09:07
DX: U07.1 COVID-19 (principal); B34.9 Viral infection, unspecified
CPT/HCPCS: 99281; U0003

== ENCOUNTER 2021-09-06 22:50 | Emergency (ER) | payer OTHER ==
--- OUTSIDE RECORDS SUMMARY | 2021-09-06 22:55 | XMS REPORT | Continuity of Care Document ---
:1995 Author Organization [facility] t Address [address] [place] [address] Care Team Providers Name Role Phone ESSENCE, Carmelita Primary Care Physician Unavailable PADMINI MOONEY Attending Clinician Unavailable 2, Lab Attending Clinician Unavailable Padmini Mooney MD Attending Clinician Nurse, [facility] Attending Clinician Unavailable Only, Test Attending Clinician Unavailable Doctor Unassigned, Name Attending Clinician Unavailable Jorje CRAIG Attending Clinician Fe MARQUIS Attending Clinician Padmini Mooney MD Admitting Clinician Payers Payer Name Policy Type Policy Number Effective Date Expiration Date [facility] [id number] 2018 [facility] MEDICAID 00:00:00 Problems Condition Condition Condition Status Onset Resolution Last Treating Co mments Source Name Details Category Date Date Treatment Clinician Date Obesity Obesity Disease Active 2019- Univers (BMI (BMI 1-25 ity of 30-39.9) 30-39.9) 00:00: [address] Previous Previous Disease Active 2019- Unive rs 9-30 ity of section section 00:00: [address] Branch Supervisio Supervisio Disease Active 2020- U nivers n of high n of high 9-30 ity of risk risk 00:00: [place] , , 00 Me dical antepartum antepartum Br anch Allergies, Adverse Reactions, Alerts Allergy Allergy Status Severity Reaction(s) Onset Inactive Treating Comm ents Source Name Type Date Date Clinician NO KNOWN Drug Active Univers ALLERGIE Class ity of [facility] Social History Social Habit Start Date Stop Date Quantity Comments Source ASSERTION 2021-05-14 [facility] 00:00:00 [facility] Alcohol intake 2021-08-19 2021-08-19 0 /d [facility] 00:00:00 00:00:00 [facility] [place] Tobacco use and 2016-03-09 2016-03-09 Never used [facility] exposure 00:00:00 00:00:00 [facility] Sex Assigned At [birth year] [facility] 00:00:00 00:00:00 [facility] Smoking Status Start Date Stop Date Source Never smoker [facility] Medications Ordered Filled Start Stop Current Ordering Indication Dosage Frequency Signature Comments Components Source Medication Medication Date Date Medication? Clinician (SIG) Name Name cephALEXin 2020- No [id number] 500mg Take 1 Univers 500 mg 06-30 capsule by ity of capsule 00:00: 00:00 mouth 2 [place] 00 :00 (two) Medical times Branch daily. PNV 2020- No [id number] Take 1 Univer s 102-iron-fo 06-27 TAB-CAP/M2 i ty of late-dha 00:00[place] (VITAFOL FE 00 :00 daily. Medica l PLUS) 90 mg Branch iron- 1 mg-200 mg Cap Yes [id number] 1{tbl} Take 1 Univers vitamin 1-29 tablet by ity of w/FA tablet 00:00: mouth [place] 00 daily. Medical Branch ferrous Yes [id number] 325mg Take 1 Un sowmya sulfate 325 1-29 tablet by ity of mg (65 mg 00:00: mouth 2 [place] iron) 00 (two) Medical tablet times Branch daily. Yes [id number] 1{tbl} Take 1 Univers vitamin 1-29 tablet by ity of w/FA tablet 00:00: mouth [place] 00 daily. Medical Branch ferrous Yes [id number] 325mg Take 1 Un sowmya sulfate 325 1-29 tablet by ity of mg (65 mg 00:00: mouth 2 [place] iron) 00 (two) Medical tablet times Branch daily. Immunizations Ordered Immunization Filled Immunization Date Status Commen ts Source Name Name Influenza Virus 2021-08-19 Completed Universit y of Vaccine Quad .5 mL IM 00:00:00 [facility] Medical 6+ MO Branch Influenza Virus 2021-08-19 Completed Universit y of Vaccine Quad .5 mL IM 00:00:00 [facility] 6+ MO Branch TDAP 2020-08-25 Completed University of 00:00:00 [facility] TDAP 2020-08-25 Completed University of 00:00:00 [facility] Influenza Virus 2020-06-30 Completed Universit y of Vaccine Quad .5 mL IM 00:00:00 [facility] 6+ MO Branch Influenza Virus 2020-06-30 Completed Universit y of Vaccine Quad .5 mL IM 00:00:00 [facility] 6+ MO Branch HPV 2012-02-08 Completed University of 00:00:00 [facility] HPV 2012-02-08 Completed University of 00:00:00 [facility] HPV 2011-10-31 Completed University of 00:00:00 [facility] HPV 2011-10-31 Completed University of 00:00:00 [facility] HPV 2011-07-13 Completed University of 00:00:00 [facility] HPV 2011-07-13 Completed University of 00:00:00 [facility] Meningococcal 2010-12-28 Completed University of Polysaccharide 00:00:00 [place] Medi raymond (groups A, C, Y and Branc h W-135) conjugate vaccine (MCV4P) TDAP 2010-12-28 Completed University of 00:00:00 [facility] Varicella 2010-12-28 Completed University of (varivax)(chicken 00:00:00 [place] M edical pox) Branch Meningococcal 2010-12-28 Completed University of Polysaccharide 00:00:00 [place] Medi raymond (groups A, C, Y and Branc h W-135) conjugate vaccine (MCV4P) TDAP 2010-12-28 Completed University of 00:00:00 [facility] Varicella 2010-12-28 Completed University of (varivax)(chicken 00:00:00 [place] M edical pox) Branch DTAP 2002-06-30 Completed University of 00:00:00 [facility] MMR 2002-06-30 Completed University of 00:00:00 [facility] Polio (IPV/OPV) 2002-06-30 Completed Universit y of 00:00:00 [facility] DTAP 2002-06-30 Completed University of 00:00:00 [facility] MMR 2002-06-30 Completed University of 00:00:00 [facility] Polio (IPV/OPV) 2002-06-30 Completed Universit y of 00:00:00 [facility] HEPATITIS A 2001-01-17 Completed University of 00:00:00 [facility] Pneumococcal 7 2001-01-17 Completed University of Conjugate, PCV7 00:00:00 [place] Med ical (Prevnar7) Branch HEPATITIS A 2001-01-17 Completed University of 00:00:00 [facility] Pneumococcal 7 2001-01-17 Completed University of Conjugate, PCV7 00:00:00 [place] Med ical (Prevnar7) Branch DTAP 1998-12-09 Completed University of 00:00:00 [facility] HIB 4 Dose Schedule 1998-12-09 Completed Unive rsity of 00:00:00 [facility] Polio (IPV/OPV) 1998-12-09 Completed Universit y of 00:00:00 [facility] DTAP 1998-12-09 Completed University of 00:00:00 [facility] HIB 4 Dose Schedule 1998-12-09 Completed Unive rsity of 00:00:00 [facility] Polio (IPV/OPV) 1998-12-09 Completed Universit y of 00:00:00 [facility] MMR 1998-07-20 Completed University of 00:00:00 [facility] Polio (IPV/OPV) 1998-07-20 Completed Universit y of 00:00:00 [facility] Varicella 1998-07-20 Completed University of (varivax)(chicken 00:00:00 [place] M edical pox) Branch MMR 1998-07-20 Completed University of 00:00:00 [facility] Polio (IPV/OPV) 1998-07-20 Completed Universit y of 00:00:00 [facility] Varicella 1998-07-20 Completed University of (varivax)(chicken 00:00:00 [place] M edical pox) Branch DTAP 1998-05-20 Completed University of 00:00:00 [facility] HIB 4 Dose Schedule 1998-05-20 Completed Unive rsity of 00:00:00 [facility] Hep B, Adol or Pedi 1998-05-20 Completed Unive rsity of Dosage 00:00:00 [facility] DTAP 1998-05-20 Completed University of 00:00:00 [facility] HIB 4 Dose Schedule 1998-05-20 Completed Unive rsity of 00:00:00 [facility] Hep B, Adol or Pedi 1998-05-20 Completed Unive rsity of Dosage 00:00:00 [facility] DTAP 1998-03-23 Completed University of 00:00:00 [facility] HIB 4 Dose Schedule 1998-03-23 Completed Unive rsity of 00:00:00 [facility] Hep B, Adol or Pedi 1998-03-23 Completed Unive rsity of Dosage 00:00:00 [facility] Polio (IPV/OPV) 1998-03-23 Completed Universit y of 00:00:00 [facility] DTAP 1998-03-23 Completed University of 00:00:00 [facility] HIB 4 Dose Schedule 1998-03-23 Completed Unive rsity of 00:00:00 [facility] Hep B, Adol or Pedi 1998-03-23 Completed Unive rsity of Dosage 00:00:00 [facility] Polio (IPV/OPV) 1998-03-23 Completed Universit y of 00:00:00 [facility] Polio (IPV/OPV) 1995 Completed Universit y of 00:00:00 [facility] DTAP 1995 Completed University of 00:00:00 [facility] HIB 4 Dose Schedule 1995 Completed Unive rsity of 00:00:00 [facility] Hep B, Adol or Pedi 1995 Completed Unive rsity of Dosage 00:00:00 [facility] Polio (IPV/OPV) 1995 Completed Universit y of 00:00:00 [facility] DTAP 1995 Completed University of 00:00:00 [facility] HIB 4 Dose Schedule 1995 Completed Unive rsity of 00:00:00 [facility] Hep B, Adol or Pedi 1995 Completed Unive rsity of Dosage 00:00:00 [facility] Vital Signs Vital Name Observation Time Observation Value Comments Source Systolic blood 2021-08-19 17:51:00 108 mm[Hg] Univer sity of pressure [facility] Diastolic blood 2021-08-19 17:51:00 63 mm[Hg] Unive rsity of [facility] Heart rate 2021-08-19 17:51:00 72 /min [facility] Body temperature 2021-08-19 17:51:00 36.78 [facility] 2021-08-19 17:51:00 18 /min [facility] Body height 2021-08-19 17:51:00 160 cm [facility] Body weight 2021-08-19 17:51:00 69.355 kg [facility] BMI 2021-08-19 17:51:00 27.09 kg/m2 [facility] Procedures Procedure Date / Time Performed Performing Clinician Sourc e POCT URINALYSIS W/O 2021-08-19 18:06:[address] [facility] SPECIFIC GRAVITY [facility] FLU VACC ([id number]), 2021-08-19 17:54:08 Laron Mooney [facility] 6+ MONTHS, IM, QUAD Medical Bran ch Encounters Start End Encounter Admission Attending Care Care Encounter Source Date/Time Date/Time Type Type Clinicians Facility Department ID 2021-09-16 2021-09-16 Outpatient R LARON MOONEY [facility] [id number] Univers 11:15:00 11:15:00 ity [facility] 2021-09-12 2021-09-12 Outpatient P [facility] [id number] Univers 08:00:00 08:00[facility] 2021-08-24 2021-08-24 Au Pair 2, Adc Lab [facility] [id number] Univers 13:07:21 15:23:43 [id number] Meredith shah PROFESSIO [id number] [address] 2021-08-24 2021-08-24 Outpatient R LARON MOONEY [facility] [id number] Univers 13:15:00 13:15:00 ity of [facility] 2021-08-19 2021-08-19 Routine Laron Mooney [place] [id number] [facility] 11:21:36 12:04:28 Cam ABIMAEL [id number] i ty of Visit WOMEN'S [id number] [facility] [id number] [address] 2020-11-23 2020-11-23 Routine Laron Mooney [id number] 14:01:45 14:34:40 Cam [place] [id number] Visit [place] [id number] Professio [id number] [address] 2020-11-11 2020-11-11 Nurse Nurse, [facility] [id number] 10:47:22 11:08:04 Visit Women's Mich [id number] [facility] [id number] Professio [id number] [address] 2020-10-28 2020-10-29 Hospital Laron Mooney [id number] 05:30:00 22:30:00 Encounter Cam [place] [id number] [place] [id number] [place] [id number] 2020-10-27 2020-10-27 Laboratory Only, [facility] [id number] 10:13:02 10:28:02 Only Test Martha [id number] [place] [id number] [place] [id number] 2020-10-21 2020-10-21 Routine Laron Mooney [id number] 14:52:05 16:19:18 Cam Martha [id number] Visit [place] [id number] Professio [id number] [address] 2020-10-21 2020-10-21 Orders Doctor CAMILO [id number] 00:00:00 00:00:00 Only Unassigned, DEIRDRE [id number] [place] [facility] [id number] [id number] [facility] 2020-10-14 2020-10-14 Routine Laron Mooney [facility] [id number] 15:47:58 16:38:20 Cam Martha [id number] Visit [place] [id number] Professio [id number] [address] 2020-10-14 2020-10-14 Au Pair 2, Adc Lab [facility] [id number] 15:31:53 15:46:53 Visit Martha [id number] [place] [id number] Professio [phone] [address] 2020-10-14 2020-10-14 Case Laron Mooney [facility] [id number] 00:00:00 00:00:00 Management Cam Martha [id number] [place] [id number] Professio [id number] [address] 2020-10-11 2020-10-11 Telephone Laron Mooney [facility] [id number] 00:00:00 00:00:00 Cam Martha [id number] [place] [id number] Professio [id number] [address] 2020-10-07 2020-10-07 Routine Laron Mooney [facility] [id number] 08:18:49 09:18:03 Cam Martha [id number] Visit [place] [id number] Professio [id number] [address] 2020-10-06 2020-10-06 Telephone Laron Mooney [facility] [id number] 00:00:00 00:00:00 Cam Martha [id number] [place] [id number] Professio [phone] [address] 2020-10-02 2020-10-02 Emergency Edgardo Recinos [facility] 1.2.840. [id number] 14:07:00 19:02:00 Laron Mooney [id number] [place] [id number] [place] [id number] 2020-09-22 2020-09-22 Routine Laron Mooney [facility] [id number] 15:22:19 15:43:16 Padmini Epps [id number] Visit [place] [id number] Professio [id number] [address] 2020-09-13 2020-09-13 Orders Doctor LESLEE 1.2.840.114 [id number] 00:00:00 00:00:00 Only Unassigned, DEIRDRE [id number] [facility] [id number] 2020-09-08 2020-09-08 Routine Fe [facility] 1.2.139.140 [id number] 10:04:39 10:19:39 Christel Epps [id number] Visit [place] [id number] Professio [id number] [address] 2020-09-01 2020-09-01 Case Laron Mooney [facility] [id number] 00:00:00 00:00:00 Management Padmini Epps [id number] [place] [id number] Professio [id number] [address] Results Test Description Test Time Test Comments Results Result Comments Source POCT URINALYSIS W/O SPECIFIC GRAVITY 2021-08-19 18:06:00 Test Item Value Reference Range Interpretation Comme nts POCT PH U (test code = 3254) N/A 5-8 POCT U LEUK EST (test code = 3263) N/A Negative - Negative POCT U NIT (test code = 3262) N/A Negative - Negative POCT U PROT (test code = 3259) Negative Negative - Negative POCT U GLU (test code = 3256) Negative Negative - Negative POCT U KETONE (test code = 3258) N/A Negative - Negative POCT U BLD (test code = 3257) N/A Negative - Negative Lab Interpretation (test code = 75489-0) [facility]
--- NOTE | 2021-09-07 03:51 | ER ---
Nurse's Notes [facility] Name: Yesica Islas Age: 26 yrs Sex: Female : 1995 Arrival Date: 09/06/2021 Time: 23:05 Bed External Waiting Private MD: Diagnosis: Presentation: 09/06 23:08 Chief complaint: Patient states: general malaise, cough x 1 day. Coronavirus screen: da3 Vaccine status: Patient reports being unvaccinated. Ebola Screen: No symptoms or risks identified at this time. Risk Assessment: Do you want to hurt yourself or someone else? Patient reports no desire to harm self or others. 23:08 Method Of Arrival: Ambulatory da3 23:08 Acuity: KOFI 4 da3 Triage Assessment: 23:11 General: Appears in no apparent distress. comfortable, Behavior is calm, cooperative, da3 appropriate for age. POT RUNNER: 23:12 2, Full Term 2, Premature 0, 0, Living 2, LMP 03/30/2021 da3 - Immunization history:: Client reports having NOT received the Covid vaccine. Vital Signs: 23:08 BP 116 / 80; Pulse 119; Resp 22; Temp 100.8; Pulse Ox 99% on R/A; Weight 68.04 kg; da3 Height 5 ft. 3 in. (160.02 cm); 23:08 Body Mass Index 26.57 (68.04 kg, 160.02 cm) da3 ED Course: 23:05 Patient arrived in ED. da3 23:10 Triage completed. da3 09/07 03:13 Arpan Ruiz MD is Attending Physician. [facility] 03:50 Patient's name was called from [facility]. No response. Unable to locate patient. Will bb disposition as left without being seen by a provider. Administered Medications: No medications were administered Outcome: 03:51 Patient left the ED. bb Signatures: Karyn Mahmood RN RN bb Arpan Ruiz MD MD [facility] John Patterson RN RN da3 Corrections: (The following items were deleted from the chart) 09/06 23:11 23:10 PMHx: UTI; da3 da3 23:11 23:10 PMHx: Anxiety; da3 da3 23:11 23:10 PSHx: section; da3 da3
[2021-09-07 04:19] VITALS: BP 116/80; TEMP 100.8; O2SAT 99
== END 2021-09-07 03:51 | disposition left against medical advice (07) ==
LOC: ER 22:50
DX: Z53.21 Procedure and treatment not carried out due to patient leaving prior to being seen by health care provider (principal)
CPT/HCPCS: 99281

== ENCOUNTER 2022-02-04 07:57 | Emergency (ER) | payer OTHER ==
--- OUTSIDE RECORDS SUMMARY | 2022-02-04 08:02 | XMS REPORT | Continuity of Care Document ---
:1995 Author Organization [facility] t Address [address] [place] [address] Care Team Providers Name Role Phone Carmelita Bravo Primary Care Physician PADMINI MOONEY Attending Clinician Unavailable Padmini Mooney MD Attending Clinician Pob, Lab Main Attending Clinician Unavailable Only, Test Attending Clinician Unavailable Doctor Unassigned, Name Attending Clinician Unavailable Amada MARQUIS Attending Clinician AMADA Attending Clinician Unavailable Nurse, Women's Health Attending Clinician Unavailable 2, Lab Attending Clinician Unavailable Jorje CRAIG Attending Clinician PADMINI MOONEY Admitting Clinician Unavailable Padmini Mooney MD Admitting Clinician Payers Payer Name Policy Type Policy Number Effective Date Expiration Date [facility] [id number] 2018 CHOICE MEDICAID 00:00:00 Problems Condition Condition Condition Status Onset Resolution Last Treating Co mments Source Name Details Category Date Date Treatment Clinician Date 39 weeks 39 weeks Disease Active NPI:1 83 gestation gestation 01-30 1318 781 of of 00:00: 00 Anemia, Anemia, Disease Active NPI:183 antepartum antepartum 01-30 13 18678 , third , third 00:00: trimester trimester 00 Positive Positive Disease Active NPI:1 83 GBS test GBS test 10-28 [id number] 1 00:00: 00 Liveborn Liveborn Disease Active NPI:1 83 , of infant, of 10-28 13 03499 garrido garrido 00:00: , , 00 born in born in hospital hospital by by delivery delivery Obesity Obesity Disease Active 2019-10 NPI:183 (BMI (BMI 1-25 9448553 30-39.9) 30-39.9) 00:00: 00 Previous Previous Disease Active NPI:1 83 06-30 434219 1 section section 00:00: 00 Supervisio Supervisio Disease Active N PI:183 n of high n of high 06-30 1318 781 risk risk 00:00: , , 00 antepartum antepartum Allergies, Adverse Reactions, Alerts Allergy Allergy Status Severity Reaction(s) Onset Inactive Treating Comm ents Source Name Type Date Date Clinician NO KNOWN Drug Active NPI:183 ALLERGIE Class 1437771 S Social History Social Habit Start Date Stop Date Quantity Comments Source ASSERTION 2021-05-14 00:00:00 Alcohol intake 2022-01-31 2022-01-31 0 /d NPI:[id number] 00:00:00 00:00:00 Exposure to 2022-01-08 2022-01-18 Not sure NPI:[id number] 1 SARS-CoV-2 (event) 00:00:00 13:09:00 Tobacco use and 2016-03-09 2016-03-09 Never used NPI:[id number] exposure 00:00:00 00:00:00 Sex [birth year] At [birth year] NPI:[id number] 00:00:00 00:00:00 Smoking Status Start Date Stop Date Source Never smoker Medications Ordered Filled Start Stop Current Ordering Indication Dosage Frequency Signature Comments Components Source Medication Medication Date Date Medication? Clinician (SIG) Name Name ibuprofen Yes 600mg 600 mg, NPI: 183 (IBU) 5-04 Oral, Q6H [id number] tablet 600 05:00: ABX, First mg 00 dose on Sun02/01/22 at 0000, Until Discontinu ed, Routine ibuprofen Yes 600mg 600 mg, NPI: 183 (IBU) 5-04 Oral, Q6H [id number] tablet 600 05:00: ABX, First mg 00 dose on Sun02/01/22 at 0000, Until Discontinu ed, Routine HYDROcodone Yes 1{tbl} 1 tablet, NPI:183 -acetaminop 5-03 Oral, [id number] hen (NORCO 05:00: Q6HPRN, 5) 5-325 mg 00 Starting tablet 1 on e tablet 01/31/22 at 0000, Until Discontinu ed, Routine, Pain (scale 7-10) HYDROcodone Yes 1{tbl} 1 tablet, NPI:183 -acetaminop 5-03 Oral, [id number] hen (NORCO 05:00: Q6HPRN, 5) 5-325 mg 00 Starting tablet 1 on Sun tablet 01/31/22 at 0000, Until Discontinu ed, Routine, Pain (scale 7-10) ketorolac 2021- Yes 30mg 30 mg, NPI:1 83 (TORADOL) 01-31-04 Slow IV [id number] 1 injection 05:00: 04:59 Push, Q6H 30 mg 00 :00 ABX, 4 doses, First dose on Sun01/31/22 at 0000, Last dose on Sun01/31/22 at 1800, Routine
cleaning crew member approving Restricted medication : LARON MOONEY ketorolac 2021- Yes 30mg 30 mg, NPI:1 83 (TORADOL) 01-31 05-04 Slow IV [id number] 1 injection 05:00: 04:59 Push, Q6H 30 mg 00 :00 ABX, 4 doses, First dose on Sun01/31/22 at 0000, Last dose on Sun01/31/22 at 1800, Routine
cleaning crew member approving Restricted medication : LARON MOONEY acetaminoph Yes 650mg 650 mg, OFFICE SWEEPER I:183 en 5-03 Oral, Q6H [id number] (TYLENOL) 01:00: ABX, First tablet 650 00 dose on mg 01/30/22 at 2000, Until Discontinu ed, Routine ferrous Yes 325mg 325 mg, NPI:18 3 sulfate 5-03 Oral, BID, [id number] 1 tablet 325 01:00: First dose mg 00 on Sun01/30/22 at 1999, Until Discontinu ed, Routine acetaminoph Yes 650mg 650 mg, OFFICE SWEEPER I:183 en 5-03 Oral, Q6H [id number] (TYLENOL) 01:00: ABX, First tablet 650 00 dose on mg Sun01/30/22 at 1999, Until Discontinu ed, Routine ferrous Yes 325mg 325 mg, NPI:18 3 sulfate 5-03 Oral, BID, [id number] 1 tablet 325 01:00: First dose mg 00 on Sun01/30/22 at 1999, Until Discontinu ed, Routine acetaminoph Yes [id number] 650mg Take 2 NPI:183 en 325 mg 5-03 tablets by 1318 781 tablet 00:00: mouth 00 every 6 (six) hours as needed for Pain (scale 1-3) or Pain (scale 4-6). Yes [id number] 1{tbl} Take 1 NPI:183 vitamin 5-03 tablet by [id number] w/FA tablet 00:00: mouth 00 daily. docusate Yes [id number] 240mg Take 1 N PI:183 calcium 240 5-03 capsule by 13 03961 mg capsule 00:00: mouth once 00 daily as needed for Constipati on. ferrous Yes [id number] 325mg Take 1 OFFICE SWEEPER I:183 sulfate 325 5-03 tablet by 131 8781 mg (65 mg 00:00: mouth 2 iron) 00 (two) tablet times daily. ibuprofen Yes [id number] 600mg Take 1 NPI:183 600 mg 5-03 tablet by [id number] tablet 00:00: mouth 00 every 6 (six) hours as needed (Pain). Take with food or milk. acetaminoph Yes [id number] 650mg Take 2 NPI:183 en 325 mg 5-03 tablets by 1318 781 tablet 00:00: mouth 00 every 6 (six) hours as needed for Pain (scale 1-3) or Pain (scale 4-6). Yes [id number] 1{tbl} Take 1 NPI:183 vitamin 5-03 tablet by [id number] w/FA tablet 00:00: mouth 00 daily. docusate 2022-0 Yes [id number] 240mg Take 1 N PI:183 calcium 240 5-03 capsule by 13 07948 mg capsule 00:00: mouth once 00 daily as needed for Constipati on. ferrous Yes [id number] 325mg Take 1 OFFICE SWEEPER I:183 sulfate 325 5-03 tablet by 131 8781 mg (65 mg 00:00: mouth 2 iron) 00 (two) tablet times daily. ibuprofen Yes [id number] 600mg Take 1 NPI:183 600 mg 5-03 tablet by [id number] tablet 00:00: mouth 00 every 6 (six) hours as needed (Pain). Take with food or milk. HYDROcodone 2021- Yes 4647 1{tbl} Take 1 N PI:183 -acetaminop 5-03 05-11 tablet by 13 56215 hen 5-325 00:00: 04:59 mouth mg tablet 00 :00 every 6 (six) hours as needed for Pain (scale 7-10) for up to 7 days. Indication s: acute pain HYDROcodone 2021- Yes 4647 1{tbl} Take 1 N PI:183 -acetaminop 5-03 05-11 tablet by 13 43575 hen 5-325 00:00: 04:59 mouth mg tablet 00 :00 every 6 (six) hours as needed for Pain (scale 7-10) for up to 7 days. Indication s: acute pain gabapentin 2021- Yes [id number] 300mg Take 1 NPI:183 300 mg 5-03 05-09 capsule by [id number] 1 capsule 00:00: 04:59 mouth 3 00 :00 (three) times daily for 5 days. gabapentin 2021- Yes [id number] 300mg Take 1 NPI:183 300 mg 5-03 05-09 capsule by [id number] 1 capsule 00:00: 04:59 mouth 3 00 :00 (three) times daily for 5 days. gabapentin 0 Yes 300mg 300 mg, NPI :183 (NEURONTIN) 5-02 Oral, TID, 13 36320 capsule 300 19:00: First dose mg 00 on Sun01/30/22 at 1400, Until Discontinu ed, Routine gabapentin 2021-0 Yes 300mg 300 mg, NPI :183 (NEURONTIN) 5-02 Oral, TID, 13 49766 capsule 300 19:00: First dose mg 00 on Sun01/30/22 at 1400, Until Discontinu ed, Routine simethicone 2021-0 Yes 160mg 160 mg, OFFICE SWEEPER I:183 (GAS RELIEF 5-02 Oral, [id number] (SIMETHICON 15:31: PC+HSPRN, E)) 43 Starting chewable on Sun tablet 160 01/30/22 at mg 1031, Until Discontinu ed, Routine, Gas simethicone 2021-0 Yes 160mg 160 mg, OFFICE SWEEPER I:183 (GAS RELIEF - Oral, [id number] (SIMETHICON 15:31: PC+HSPRN, E)) 43 Starting chewable on Sun tablet 160 01/30/22 at mg 1031, Until Discontinu ed, Routine, Gas lactated 202- No 1000mL at 125 NPI: 183 ringers IV 01-30 05-02 mL/hr, [id number] 1 infusion 14:45: 16:33 1,000 mL, 1,000 mL 00 :00 IV Infusion, ONCE, 1 dose, On Sun01/30/22 at 0945, Routine rho(D) Yes 300ug 300 mcg, NPI:18 3 immune -02 Intramuscu [id number] globulin 14:44: lar, ONCE, (RHOGAM) 26 For 1 syringe 300 dose, mcg Conditiona l, Routine rho(D) Yes 300ug 300 mcg, NPI:18 3 immune 5-02 Intramuscu [id number] globulin 14:44: lar, ONCE, (RHOGAM) 26 For 1 syringe 300 dose, mcg Conditiona l, Routine diphenhydrA Yes 25mg 25 mg, NPI: 183 MINE 01-30 Slow IV [id number] (BENADRYL) 14:44: Push, injection 21 Q6HPRN, 25 mg Starting on Sun01/30/22 at 0944, Until Discontinu ed, Routine, Itching diphenhydrA Yes 25mg 25 mg, NPI: 183 MINE 01-30 Oral, [id number] (BENADRYL) 14:44: Q6HPRN, tablet 25 21 Starting mg on Sun01/30/22 at 0944, Until Discontinu ed, Routine, Sleep, Itching ondansetron 2022-0 Yes 4mg 4 mg, Slow NPI:183 (ZOFRAN 5-02 IV Push, [id number] (PF)) 14:44: Q8HPRN, injection 4 21 Starting mg on Sun01/30/22 at 0944, Until Discontinu ed, Routine, Nausea and Vomiting (N/V) bisacodyL 2022-0 Yes 10mg 10 mg, NPI:18 3 (DULCOLAX) 5-02 Rectal, [id number] 1 suppository 14:44: QDAILYPRN, 10 mg 21 Starting on Sun01/30/22 at 0944, Until Discontinu ed, Routine, Constipati on docusate 2022-0 Yes 240mg 240 mg, NPI:1 83 calcium 5-02 Oral, [id number] (SURFAK) 14:44: QDAILYPRN, capsule 240 21 Starting mg on Sun01/30/22 at 0944, Until Discontinu ed, Routine, Constipati on magnesium 2-0 Yes 30mL 30 mL, NPI:18 3 hydroxide 5-02 Oral, [id number] (MILK OF 14:44: QDAILYPRN, MAGNESIA) 21 Starting 400 mg/5 mL on Sun01/30/22 at 30 mL 0944, Until Discontinu ed, Routine, Constipati on diphenhydrA 2022-0 Yes 25mg 25 mg, NPI: 183 MINE 5-02 Slow IV [id number] (BENADRYL) 14:44: Push, injection 21 Q6HPRN, 25 mg Starting on Sun01/30/22 at 0944, Until Discontinu ed, Routine, Itching diphenhydrA 2022-0 Yes 25mg 25 mg, NPI: 183 MINE 5-02 Oral, [id number] (BENADRYL) 14:44: Q6HPRN, tablet 25 21 Starting mg on Sun01/30/22 at 0944, Until Discontinu ed, Routine, Sleep, Itching ondansetron 2022-0 Yes 4mg 4 mg, Slow NPI:183 (ZOFRAN 5-02 IV Push, [id number] (PF)) 14:44: Q8HPRN, injection 4 21 Starting mg on Sun01/30/22 at 0944, Until Discontinu ed, Routine, Nausea and Vomiting (N/V) bisacodyL Yes 10mg 10 mg, NPI:18 3 (DULCOLAX) 5-02 Rectal, [id number] 1 suppository 14:44: QDAILYPRN, 10 mg 21 Starting on Sun01/30/22 at 0944, Until Discontinu ed, Routine, Constipati on docusate Yes 240mg 240 mg, NPI:1 83 calcium 5-02 Oral, [id number] (SURFAK) 14:44: QDAILYPRN, capsule 240 21 Starting mg on Sun01/30/22 at 0944, Until Discontinu ed, Routine, Constipati on magnesium Yes 30mL 30 mL, NPI:18 3 hydroxide 5-02 Oral, [id number] (MILK OF 14:44: QDAILYPRN, MAGNESIA) 21 Starting 400 mg/5 mL on Sun01/30/22 at 30 mL 0944, Until Discontinu ed, Routine, Constipati on sodium 0 Yes PRN, NPI:183 chloride 5-02 Starting [id number] 0.9 % 13:36: on Mon irrigation 01/30/22 at solution 0836, Until Discontinu ed, Intra-op mupirocin Yes Intra-op NPI: 183 (BACTROBAN 5-02 [id number] OINT) 2 % 13:36: skin 00 ointment sodium Yes PRN, NPI:183 chloride - Starting [id number] 0.9 % 13:36: on Mon irrigation 01/30/22 at solution 0836, Until Discontinu ed, Intra-op mupirocin 0 Yes Intra-op NPI: 183 (BACTROBAN 5-02 [id number] OINT) 2 % 13:36: skin 00 ointment oxytocin 2021- No 300mL/h 300 mL/hr, NPI:183 (PITOCIN) 01-30 05-02 IV [id number] 30 units in 12:57: 14:44 Infusion, NS 500 mL 35 :26 SEE-INSTRU IV infusion CTIONS, Starting on Sun01/30/[address] at 300 mL/hr for 1 hr then 150 mL/hr for 1 hr. & nbsp; For post delivery uterotonic
D5W-LR IV 2021- No 1000mL at 125 NPI :183 infusion 01-30 05-02 mL/hr, [place] [address] 81 1,000 mL 11:00: 14:44 Infusion, 00 :26 CONTINUOUS , Starting on 01/30/22 at 0600, Until Sun01/30/22 at 0944, Routine sodium 2021- No 30mL 30 mL, NPI:183 citrate-cit 01-30- Oral, [id number] 1 saranya acid 10:53: 12:36 PRE-PROCED (BICITRA) 17 :00 URE ONCE, 500-334 1 dose, mg/5 mL Starting solution 30 on Sun mL 01/30/22 at 0553, Until 01/30/22 at 0736, Routine, Surgery/Pr ocedure PNV 0 Yes Take by NPI:183 no.95/lana 4-02 mouth. [id number] 1 us 00:18: fum/folic 46 ac ( ORAL) PNV 2021-0 Yes Take by NPI:183 no.95/lana 4-02 mouth. [id number] 1 us 00:18: fum/folic 46 ac ( ORAL) PNV 2021-0 Yes Take by NPI:183 no.95/lana 4-02 mouth. 993760 1 us 00:18: fum/folic 46 ac ( ORAL) PNV 2021-0 Yes Take by NPI:183 no.95/lana 4-02 mouth. 643965 1 us 00:18: fum/folic 46 ac ( ORAL) PNV 2021-0 Yes Take by NPI:183 no.95/lana 4-02 mouth. 747291 1 us 00:18: fum/folic 46 ac ( ORAL) PNV 2021-0 Yes Take by NPI:183 no.95/lana 4-02 mouth. 359758 1 us 00:18: fum/folic 46 ac ( ORAL) PNV 2021-0 Yes Take by NPI:183 no.95/lana 4-02 mouth. 612189 1 us 00:18: fum/folic 46 ac ( ORAL) cephALEXin 2021-0 2022- Yes [id number] 500mg Take 1 NPI:183 500 mg 2-21 05-03 capsule by [id number] 1 capsule 00:00: 04:59 mouth 00 :00 daily for 70 days. cephALEXin 2021- Yes [id number] 500mg Take 1 NPI:183 500 mg 2-21 05-03 capsule by [id number] 1 capsule 00:00: 04:59 mouth 00 :00 daily for 70 days. cephALEXin 2021- Yes [id number] 500mg Take 1 NPI:183 500 mg 2-21 05-03 capsule by 722497 1 capsule 00:00: 04:59 mouth 00 :00 daily for 70 days. cephALEXin 2021- Yes [id number] 500mg Take 1 NPI:183 500 mg 2-21 05-03 capsule by 520033 1 capsule 00:00: 04:59 mouth 00 :00 daily for 70 days. cephALEXin 2021- Yes [id number] 500mg Take 1 NPI:183 500 mg 2-21 05-03 capsule by 193387 1 capsule 00:00: 04:59 mouth 00 :00 daily for 70 days. cephALEXin 2021- Yes [id number] 500mg Take 1 NPI:183 500 mg 2-21 05-03 capsule by 825320 1 capsule 00:00: 04:59 mouth 00 :00 daily for 70 days. cephALEXin 2021- Yes [id number] 500mg Take 1 NPI:183 500 mg 2-21 05-03 capsule by [id number] 1 capsule 00:00: 04:59 mouth 00 :00 daily for 70 days. ferrous Yes [id number] 325mg Take 1 OFFICE SWEEPER I:183 sulfate 325 1-29 tablet by 131 8781 mg (65 mg 00:00: mouth 2 iron) 00 (two) tablet times daily. ferrous Yes [id number] 325mg Take 1 OFFICE SWEEPER I:183 sulfate 325 1-29 tablet by 131 8781 mg (65 mg 00:00: mouth 2 iron) 00 (two) tablet times daily. ferrous Yes [id number] 325mg Take 1 OFFICE SWEEPER I:183 sulfate 325 1-29 tablet by 131 8781 mg (65 mg 00:00: mouth 2 iron) 00 (two) tablet times daily. ferrous Yes [id number] 325mg Take 1 OFFICE SWEEPER I:183 sulfate 325 1-29 tablet by 131 8781 mg (65 mg 00:00: mouth 2 iron) 00 (two) tablet times daily. ferrous Yes [id number] 325mg Take 1 OFFICE SWEEPER I:183 sulfate 325 1-29 tablet by 131 8781 mg (65 mg 00:00: mouth 2 iron) 00 (two) tablet times daily. ferrous Yes [id number] 325mg Take 1 OFFICE SWEEPER I:183 sulfate 325 1-29 tablet by 131 8781 mg (65 mg 00:00: mouth 2 iron) 00 (two) tablet times daily. ferrous Yes [id number] 325mg Take 1 OFFICE SWEEPER I:183 sulfate 325 1-29 tablet by 131 8781 mg (65 mg 00:00: mouth 2 iron) 00 (two) tablet times daily. ferrous 2021- No [id number] 325mg Take 1 N PI:183 sulfate 325 1-29 05-03 tablet by 13 91750 mg (65 mg 00:00: 00:00 mouth 2 iron) 00 :00 (two) tablet times daily. ferrous 2021- No [id number] 325mg Take 1 N PI:183 sulfate 325 1-29 05-03 tablet by 13 39678 mg (65 mg 00:00: 00:00 mouth 2 iron) 00 :00 (two) tablet times daily. Immunizations Ordered Immunization Filled Immunization Date Status Commen ts Source Name Name TDAP 2021-11-30 Completed NPI:[id number] 00:00:00 1 TDAP 2021-11-30 Completed NPI:[id number] 00:00:00 1 TDAP 2021-11-30 Completed NPI:[id number] 00:00:00 1 TDAP 2021-11-30 Completed NPI:[id number] 00:00:00 1 TDAP 2021-11-30 Completed NPI:[id number] 00:00:00 1 TDAP 2021-11-30 Completed NPI:[id number] 00:00:00 1 TDAP 2021-11-30 Completed NPI:[id number] 00:00:00 1 TDAP 2021-11-30 Completed NPI:[id number] 00:00:00 1 TDAP 2021-11-30 Completed NPI:[id number] 00:00:00 1 Influenza Virus 2021-08-19 Completed NPI:[id number] Vaccine Quad .5 mL IM 00:00:00 1 6+ MO Influenza Virus 2021-08-19 Completed NPI:[id number] 1878 Vaccine Quad .5 mL IM 00:00:00 1 6+ MO Influenza Virus 2021-08-19 Completed NPI:[id number] 1878 Vaccine Quad .5 mL IM 00:00:00 1 6+ MO Influenza Virus 2021-08-19 Completed NPI:[id number] 1878 Vaccine Quad .5 mL IM 00:00:00 1 6+ MO Influenza Virus 2021-08-19 Completed NPI:[id number] 1878 Vaccine Quad .5 mL IM 00:00:00 1 6+ MO Influenza Virus 2021-08-19 Completed NPI:[id number] 1878 Vaccine Quad .5 mL IM 00:00:00 1 6+ MO Influenza Virus 2021-08-19 Completed NPI:[id number] 1878 Vaccine Quad .5 mL IM 00:00:00 1 6+ MO Influenza Virus 2021-08-19 Completed NPI:[id number] 1878 Vaccine Quad .5 mL IM 00:00:00 1 6+ MO Influenza Virus 2021-08-19 Completed NPI:[id number] 1878 Vaccine Quad .5 mL IM 00:00:00 1 6+ MO TDAP 2020-08-25 Completed NPI:[id number] 00:00:00 1 TDAP 2020-08-25 Completed NPI:[id number] 00:00:00 1 TDAP 2020-08-25 Completed NPI:[id number] 00:00:00 1 TDAP 2020-08-25 Completed NPI:[id number] 00:00:00 1 TDAP 2020-08-25 Completed NPI:[id number] 00:00:00 1 TDAP 2020-08-25 Completed NPI:[id number] 00:00:00 1 TDAP 2020-08-25 Completed NPI:[id number] 00:00:00 1 TDAP 2020-08-25 Completed NPI:[id number] 00:00:00 1 TDAP 2020-08-25 Completed NPI:[id number] 00:00:00 1 Influenza Virus 2020-06-30 Completed NPI:[id number] 1878 Vaccine Quad .5 mL IM 00:00:00 1 6+ MO Influenza Virus 2020-06-30 Completed NPI:[id number] Vaccine Quad .5 mL IM 00:00:00 1 6+ MO Influenza Virus 2020-06-30 Completed NPI:[id number] Vaccine Quad .5 mL IM 00:00:00 1 6+ MO Influenza Virus 2020-06-30 Completed NPI:[id number] 1878 Vaccine Quad .5 mL IM 00:00:00 1 6+ MO Influenza Virus 2020-06-30 Completed NPI:[id number] Vaccine Quad .5 mL IM 00:00:00 1 6+ MO Influenza Virus 2020-06-30 Completed NPI:[id number] 1878 Vaccine Quad .5 mL IM 00:00:00 1 6+ MO Influenza Virus 2020-06-30 Completed NPI:[id number] 1878 Vaccine Quad .5 mL IM 00:00:00 1 6+ MO Influenza Virus 2020-06-30 Completed NPI:[id number] Vaccine Quad .5 mL IM 00:00:00 1 6+ MO Influenza Virus 2020-06-30 Completed NPI:[id number] 1878 Vaccine Quad .5 mL IM 00:00:00 1 6+ MO HPV 2012-02-08 Completed NPI:[id number] 00:00:00 1 HPV 2012-02-08 Completed NPI:[id number] 00:00:00 1 HPV 2012-02-08 Completed NPI:[id number] 00:00:00 1 HPV 2012-02-08 Completed NPI:[id number] 00:00:00 1 HPV 2012-02-08 Completed NPI:[id number] 00:00:00 1 HPV 2012-02-08 Completed NPI:[id number] 00:00:00 1 HPV 2012-02-08 Completed NPI:[id number] 00:00:00 1 HPV 2012-02-08 Completed NPI:[id number] 00:00:00 1 HPV 2012-02-08 Completed NPI:[id number] 00:00:00 1 HPV 2011-10-31 Completed NPI:[id number] 00:00:00 1 HPV 2011-10-31 Completed NPI:[id number] 00:00:00 1 HPV 2011-10-31 Completed NPI:[id number] 00:00:00 1 HPV 2011-10-31 Completed NPI:[id number] 00:00:00 1 HPV 2011-10-31 Completed NPI:[id number] 00:00:00 1 HPV 2011-10-31 Completed NPI:[id number] 00:00:00 1 HPV 2011-10-31 Completed NPI:[id number] 00:00:00 1 HPV 2011-10-31 Completed NPI:[id number] 00:00:00 1 HPV 2011-10-31 Completed NPI:[id number] 00:00:00 1 HPV 2011-07-13 Completed NPI:[id number] 00:00:00 1 HPV 2011-07-13 Completed NPI:[id number] 00:00:00 1 HPV 2011-07-13 Completed NPI:[id number] 00:00:00 1 HPV 2011-07-13 Completed NPI:[id number] 00:00:00 1 HPV 2011-07-13 Completed NPI:[id number] 00:00:00 1 HPV 2011-07-13 Completed NPI:[id number] 00:00:00 1 HPV 2011-07-13 Completed NPI:[id number] 00:00:00 1 HPV 2011-07-13 Completed NPI:[id number] 00:00:00 1 HPV 2011-07-13 Completed NPI:[id number] 00:00:00 1 Meningococcal 2010-12-28 Completed NPI:[id number] Polysaccharide (groups 00:00:00 1 A, C, Y and W-135) conjugate vaccine (MCV4P) TDAP 2010-12-28 Completed NPI:[id number] 00:00:00 1 Varicella 2010-12-28 Completed NPI:[id number] (varivax)(chicken pox) 00:00:00 1 Meningococcal 2010-12-28 Completed NPI:[id number] Polysaccharide (groups 00:00:00 1 A, C, Y and W-135) conjugate vaccine (MCV4P) TDAP 2010-12-28 Completed NPI:[id number] 00:00:00 1 Varicella 2010-12-28 Completed NPI:[id number] (varivax)(chicken pox) 00:00:00 1 Meningococcal 2010-12-28 Completed NPI:[id number] Polysaccharide (groups 00:00:00 1 A, C, Y and W-135) conjugate vaccine (MCV4P) TDAP 2010-12-28 Completed NPI:[id number] 00:00:00 1 Varicella 2010-12-28 Completed NPI:[id number] (varivax)(chicken pox) 00:00:00 1 Meningococcal 2010-12-28 Completed NPI:[id number] Polysaccharide (groups 00:00:00 1 A, C, Y and W-135) conjugate vaccine (MCV4P) TDAP 2010-12-28 Completed NPI:[id number] 00:00:00 1 Varicella 2010-12-28 Completed NPI:[id number] (varivax)(chicken pox) 00:00:00 1 Meningococcal 2010-12-28 Completed NPI:[id number] Polysaccharide (groups 00:00:00 1 A, C, Y and W-135) conjugate vaccine (MCV4P) TDAP 2010-12-28 Completed NPI:[id number] 00:00:00 1 Varicella 2010-12-28 Completed NPI:[id number] (varivax)(chicken pox) 00:00:00 1 Meningococcal 2010-12-28 Completed NPI:[id number] Polysaccharide (groups 00:00:00 1 A, C, Y and W-135) conjugate vaccine (MCV4P) TDAP 2010-12-28 Completed NPI:[id number] 00:00:00 1 Varicella 2010-12-28 Completed NPI:[id number] (varivax)(chicken pox) 00:00:00 1 Meningococcal 2010-12-28 Completed NPI:[id number] Polysaccharide (groups 00:00:00 1 A, C, Y and W-135) conjugate vaccine (MCV4P) TDAP 2010-12-28 Completed NPI:[id number] 00:00:00 1 Varicella 2010-12-28 Completed NPI:[id number] (varivax)(chicken pox) 00:00:00 1 Meningococcal 2010-12-28 Completed NPI:[id number] Polysaccharide (groups 00:00:00 1 A, C, Y and W-135) conjugate vaccine (MCV4P) TDAP 2010-12-28 Completed NPI:[id number] 00:00:00 1 Varicella 2010-12-28 Completed NPI:[id number] (varivax)(chicken pox) 00:00:00 1 Meningococcal 2010-12-28 Completed NPI:[id number] Polysaccharide (groups 00:00:00 1 A, C, Y and W-135) conjugate vaccine (MCV4P) TDAP 2010-12-28 Completed NPI:[id number] 00:00:00 1 Varicella 2010-12-28 Completed NPI:[id number] (varivax)(chicken pox) 00:00:00 1 DTAP 2002-06-30 Completed NPI:[id number] 00:00:00 1 MMR 2002-06-30 Completed NPI:[id number] 00:00:00 1 Polio (IPV/OPV) 2002-06-30 Completed NPI:[id number] 00:00:00 1 DTAP 2002-06-30 Completed NPI:[id number] 00:00:00 1 MMR 2002-06-30 Completed NPI:[id number] 00:00:00 1 Polio (IPV/OPV) 2002-06-30 Completed NPI:[id number] 00:00:00 1 DTAP 2002-06-30 Completed NPI:[id number] 00:00:00 1 MMR 2002-06-30 Completed NPI:[id number] 00:00:00 1 Polio (IPV/OPV) 2002-06-30 Completed NPI:[id number] 00:00:00 1 DTAP 2002-06-30 Completed NPI:[id number] 00:00:00 1 MMR 2002-06-30 Completed NPI:[id number] 00:00:00 1 Polio (IPV/OPV) 2002-06-30 Completed NPI:[id number] 00:00:00 1 DTAP 2002-06-30 Completed NPI:[id number] 00:00:00 1 MMR 2002-06-30 Completed NPI:[id number] 00:00:00 1 Polio (IPV/OPV) 2002-06-30 Completed NPI:[id number] 00:00:00 1 DTAP 2002-06-30 Completed NPI:[id number] 00:00:00 1 MMR 2002-06-30 Completed NPI:[id number] 00:00:00 1 Polio (IPV/OPV) 2002-06-30 Completed NPI:[id number] 00:00:00 1 DTAP 2002-06-30 Completed NPI:[id number] 00:00:00 1 MMR 2002-06-30 Completed NPI:[id number] 00:00:00 1 Polio (IPV/OPV) 2002-06-30 Completed NPI:[id number] 00:00:00 1 DTAP 2002-06-30 Completed NPI:[id number] 00:00:00 1 MMR 2002-06-30 Completed NPI:[id number] 00:00:00 1 Polio (IPV/OPV) 2002-06-30 Completed NPI:[id number] 00:00:00 1 DTAP 2002-06-30 Completed NPI:[id number] 00:00:00 1 MMR 2002-06-30 Completed NPI:[id number] 00:00:00 1 Polio (IPV/OPV) 2002-06-30 Completed NPI:[id number] 00:00:00 1 HEPATITIS A 2001-01-17 Completed NPI:[id number] 00:00:00 1 Pneumococcal 7 2001-01-17 Completed NPI:[id number] Conjugate, PCV7 00:00:00 1 (Prevnar7) HEPATITIS A 2001-01-17 Completed NPI:[id number] 00:00:00 1 Pneumococcal 7 2001-01-17 Completed NPI:[id number] Conjugate, PCV7 00:00:00 1 (Prevnar7) HEPATITIS A 2001-01-17 Completed NPI:[id number] 00:00:00 1 Pneumococcal 7 2001-01-17 Completed NPI:[id number] Conjugate, PCV7 00:00:00 1 (Prevnar7) HEPATITIS A 2001-01-17 Completed NPI:[id number] 00:00:00 1 Pneumococcal 7 2001-01-17 Completed NPI:[id number] Conjugate, PCV7 00:00:00 1 (Prevnar7) HEPATITIS A 2001-01-17 Completed NPI:[id number] 00:00:00 1 Pneumococcal 7 2001-01-17 Completed NPI:[id number] Conjugate, PCV7 00:00:00 1 (Prevnar7) HEPATITIS A 2001-01-17 Completed NPI:[id number] 00:00:00 1 Pneumococcal 7 2001-01-17 Completed NPI:[id number] Conjugate, PCV7 00:00:00 1 (Prevnar7) HEPATITIS A 2001-01-17 Completed NPI:[id number] 00:00:00 1 Pneumococcal 7 2001-01-17 Completed NPI:[id number] 878 Conjugate, PCV7 00:00:00 1 (Prevnar7) HEPATITIS A 2001-01-17 Completed NPI:[id number] 00:00:00 1 Pneumococcal 7 2001-01-17 Completed NPI:[id number] Conjugate, PCV7 00:00:00 1 (Prevnar7) HEPATITIS A 2001-01-17 Completed NPI:[id number] 00:00:00 1 Pneumococcal 7 2001-01-17 Completed NPI:[id number] Conjugate, PCV7 00:00:00 1 (Prevnar7) DTAP 1998-12-09 Completed NPI:[id number] 00:00:00 1 HIB 4 Dose Schedule 1998-12-09 Completed NPI:1 [id number] 00:00:00 1 Polio (IPV/OPV) 1998-12-09 Completed NPI:[id number] 1878 00:00:00 1 DTAP 1998-12-09 Completed NPI:[id number] 00:00:00 1 HIB 4 Dose Schedule 1998-12-09 Completed NPI:1 [id number] 00:00:00 1 Polio (IPV/OPV) 1998-12-09 Completed NPI:[id number] 1878 00:00:00 1 DTAP 1998-12-09 Completed NPI:[id number] 00:00:00 1 HIB 4 Dose Schedule 1998-12-09 Completed NPI:1 [id number] 00:00:00 1 Polio (IPV/OPV) 1998-12-09 Completed NPI:[id number] 1878 00:00:00 1 DTAP 1998-12-09 Completed NPI:[id number] 00:00:00 1 HIB 4 Dose Schedule 1998-12-09 Completed NPI:1 [id number] 00:00:00 1 Polio (IPV/OPV) 1998-12-09 Completed NPI:[id number] 1878 00:00:00 1 DTAP 1998-12-09 Completed NPI:[id number] 00:00:00 1 HIB 4 Dose Schedule 1998-12-09 Completed NPI:1 [id number] 00:00:00 1 Polio (IPV/OPV) 1998-12-09 Completed NPI:[id number] 1878 00:00:00 1 DTAP 1998-12-09 Completed NPI:[id number] 00:00:00 1 HIB 4 Dose Schedule 1998-12-09 Completed NPI:1 [id number] 00:00:00 1 Polio (IPV/OPV) 1998-12-09 Completed NPI:[id number] 1878 00:00:00 1 DTAP 1998-12-09 Completed NPI:[id number] 00:00:00 1 HIB 4 Dose Schedule 1998-12-09 Completed NPI:1 [id number] 00:00:00 1 Polio (IPV/OPV) 1998-12-09 Completed NPI:[id number] 1878 00:00:00 1 DTAP 1998-12-09 Completed NPI:[id number] 00:00:00 1 HIB 4 Dose Schedule 1998-12-09 Completed NPI:1 [id number] 00:00:00 1 Polio (IPV/OPV) 1998-12-09 Completed NPI:51151 1878 00:00:00 1 DTAP 1998-12-09 Completed NPI:[id number] 00:00:00 1 HIB 4 Dose Schedule 1998-12-09 Completed NPI:1 [id number] 00:00:00 1 Polio (IPV/OPV) 1998-12-09 Completed NPI:35050 1878 00:00:00 1 MMR 1998-07-20 Completed NPI:[id number] 00:00:00 1 Polio (IPV/OPV) 1998-07-20 Completed NPI:[id number] 1878 00:00:00 1 Varicella 1998-07-20 Completed NPI:[id number] (varivax)(chicken pox) 00:00:00 1 MMR 1998-07-20 Completed NPI:[id number] 00:00:00 1 Polio (IPV/OPV) 1998-07-20 Completed NPI:[id number] 1878 00:00:00 1 Varicella 1998-07-20 Completed NPI:[id number] (varivax)(chicken pox) 00:00:00 1 MMR 1998-07-20 Completed NPI:[id number] 00:00:00 1 Polio (IPV/OPV) 1998-07-20 Completed NPI:[id number] 1878 00:00:00 1 Varicella 1998-07-20 Completed NPI:[id number] (varivax)(chicken pox) 00:00:00 1 MMR 1998-07-20 Completed NPI:[id number] 00:00:00 1 Polio (IPV/OPV) 1998-07-20 Completed NPI:[id number] 1878 00:00:00 1 Varicella 1998-07-20 Completed NPI:[id number] (varivax)(chicken pox) 00:00:00 1 MMR 1998-07-20 Completed NPI:[id number] 00:00:00 1 Polio (IPV/OPV) 1998-07-20 Completed NPI:[id number] 1878 00:00:00 1 Varicella 1998-07-20 Completed NPI:[id number] (varivax)(chicken pox) 00:00:00 1 MMR 1998-07-20 Completed NPI:[id number] 00:00:00 1 Polio (IPV/OPV) 1998-07-20 Completed NPI:[id number] 1878 00:00:00 1 Varicella 1998-07-20 Completed NPI:[id number] (varivax)(chicken pox) 00:00:00 1 MMR 1998-07-20 Completed NPI:[id number] 00:00:00 1 Polio (IPV/OPV) 1998-07-20 Completed NPI:[id number] 1878 00:00:00 1 Varicella 1998-07-20 Completed NPI:[id number] (varivax)(chicken pox) 00:00:00 1 MMR 1998-07-20 Completed NPI:[id number] 00:00:00 1 Polio (IPV/OPV) 1998-07-20 Completed NPI:[id number] 1878 00:00:00 1 Varicella 1998-07-20 Completed NPI:[id number] (varivax)(chicken pox) 00:00:00 1 MMR 1998-07-20 Completed NPI:[id number] 00:00:00 1 Polio (IPV/OPV) 1998-07-20 Completed NPI:[id number] 1878 00:00:00 1 Varicella 1998-07-20 Completed NPI:[id number] (varivax)(chicken pox) 00:00:00 1 DTAP 1998-05-20 Completed NPI:[id number] 00:00:00 1 HIB 4 Dose Schedule 1998-05-20 Completed NPI:1 [id number] 00:00:00 1 Hep B, Adol or Pedi 1998-05-20 Completed NPI:1 [id number] Dosage 00:00:00 1 DTAP 1998-05-20 Completed NPI:[id number] 00:00:00 1 HIB 4 Dose Schedule 1998-05-20 Completed NPI:1 [id number] 00:00:00 1 Hep B, Adol or Pedi 1998-05-20 Completed NPI:1 [id number] Dosage 00:00:00 1 DTAP 1998-05-20 Completed NPI:[id number] 00:00:00 1 HIB 4 Dose Schedule 1998-05-20 Completed NPI:1 [id number] 00:00:00 1 Hep B, Adol or Pedi 1998-05-20 Completed NPI:1 [id number] Dosage 00:00:00 1 DTAP 1998-05-20 Completed NPI:[id number] 00:00:00 1 HIB 4 Dose Schedule 1998-05-20 Completed NPI:1 [id number] 00:00:00 1 Hep B, Adol or Pedi 1998-05-20 Completed NPI:1 [id number] Dosage 00:00:00 1 DTAP 1998-05-20 Completed NPI:[id number] 00:00:00 1 HIB 4 Dose Schedule 1998-05-20 Completed NPI:1 [id number] 00:00:00 1 Hep B, Adol or Pedi 1998-05-20 Completed NPI:1 [id number] Dosage 00:00:00 1 DTAP 1998-05-20 Completed NPI:[id number] 00:00:00 1 HIB 4 Dose Schedule 1998-05-20 Completed NPI:1 [id number] 00:00:00 1 Hep B, Adol or Pedi 1998-05-20 Completed NPI:1 [id number] Dosage 00:00:00 1 DTAP 1998-05-20 Completed NPI:[id number] 00:00:00 1 HIB 4 Dose Schedule 1998-05-20 Completed NPI:1 [id number] 00:00:00 1 Hep B, Adol or Pedi 1998-05-20 Completed NPI:1 [id number] Dosage 00:00:00 1 DTAP 1998-05-20 Completed NPI:[id number] 00:00:00 1 HIB 4 Dose Schedule 1998-05-20 Completed NPI:1 [id number] 00:00:00 1 Hep B, Adol or Pedi 1998-05-20 Completed NPI:1 [id number] Dosage 00:00:00 1 DTAP 1998-05-20 Completed NPI:[id number] 00:00:00 1 HIB 4 Dose Schedule 1998-05-20 Completed NPI:1 [id number] 00:00:00 1 Hep B, Adol or Pedi 1998-05-20 Completed NPI:1 [id number] Dosage 00:00:00 1 DTAP 1998-03-23 Completed NPI:[id number] 00:00:00 1 HIB 4 Dose Schedule 1998-03-23 Completed NPI:1 [id number] 00:00:00 1 Hep B, Adol or Pedi 1998-03-23 Completed NPI:1 [id number] Dosage 00:00:00 1 Polio (IPV/OPV) 1998-03-23 Completed NPI:[id number] 1878 00:00:00 1 DTAP 1998-03-23 Completed NPI:[id number] 00:00:00 1 HIB 4 Dose Schedule 1998-03-23 Completed NPI:1 [id number] 00:00:00 1 Hep B, Adol or Pedi 1998-03-23 Completed NPI:1 [id number] Dosage 00:00:00 1 Polio (IPV/OPV) 1998-03-23 Completed NPI:[id number] 1878 00:00:00 1 DTAP 1998-03-23 Completed NPI:[id number] 00:00:00 1 HIB 4 Dose Schedule 1998-03-23 Completed NPI:1 [id number] 00:00:00 1 Hep B, Adol or Pedi 1998-03-23 Completed NPI:1 [id number] Dosage 00:00:00 1 Polio (IPV/OPV) 1998-03-23 Completed NPI:[id number] 1878 00:00:00 1 DTAP 1998-03-23 Completed NPI:[id number] 00:00:00 1 HIB 4 Dose Schedule 1998-03-23 Completed NPI:1 [id number] 00:00:00 1 Hep B, Adol or Pedi 1998-03-23 Completed NPI:1 [id number] Dosage 00:00:00 1 Polio (IPV/OPV) 1998-03-23 Completed NPI:[id number] 1878 00:00:00 1 DTAP 1998-03-23 Completed NPI:[id number] 00:00:00 1 HIB 4 Dose Schedule 1998-03-23 Completed NPI:1 [id number] 00:00:00 1 Hep B, Adol or Pedi 1998-03-23 Completed NPI:1 [id number] Dosage 00:00:00 1 Polio (IPV/OPV) 1998-03-23 Completed NPI:[id number] 1878 00:00:00 1 DTAP 1998-03-23 Completed NPI:[id number] 00:00:00 1 HIB 4 Dose Schedule 1998-03-23 Completed NPI:1 [id number] 00:00:00 1 Hep B, Adol or Pedi 1998-03-23 Completed NPI:1 [id number] Dosage 00:00:00 1 Polio (IPV/OPV) 1998-03-23 Completed NPI:[id number] 1878 00:00:00 1 DTAP 1998-03-23 Completed NPI:[id number] 00:00:00 1 HIB 4 Dose Schedule 1998-03-23 Completed NPI:1 [id number] 00:00:00 1 Hep B, Adol or Pedi 1998-03-23 Completed NPI:1 [id number] Dosage 00:00:00 1 Polio (IPV/OPV) 1998-03-23 Completed NPI:[id number] 1878 00:00:00 1 DTAP 1998-03-23 Completed NPI:[id number] 00:00:00 1 HIB 4 Dose Schedule 1998-03-23 Completed NPI:1 [id number] 00:00:00 1 Hep B, Adol or Pedi 1998-03-23 Completed NPI:1 [id number] Dosage 00:00:00 1 Polio (IPV/OPV) 1998-03-23 Completed NPI:[id number] 1878 00:00:00 1 DTAP 1998-03-23 Completed NPI:[id number] 00:00:00 1 HIB 4 Dose Schedule 1998-03-23 Completed NPI:1 [id number] 00:00:00 1 Hep B, Adol or Pedi 1998-03-23 Completed NPI:1 [id number] Dosage 00:00:00 1 Polio (IPV/OPV) 1998-03-23 Completed NPI:[id number] 1878 00:00:00 1 DTAP 1997 Completed NPI:[id number] 00:00:00 1 HIB 4 Dose Schedule 1997 Completed NPI:1 [id number] 00:00:00 1 Hep B, Adol or Pedi 1997 Completed NPI:1 [id number] Dosage 00:00:00 1 Polio (IPV/OPV) 1997 Completed NPI:[id number] 1878 00:00:00 1 DTAP 1997 Completed NPI:[id number] 00:00:00 1 HIB 4 Dose Schedule 1997 Completed NPI:1 [id number] 00:00:00 1 Hep B, Adol or Pedi 1997 Completed NPI:1 [id number] Dosage 00:00:00 1 Polio (IPV/OPV) 1997 Completed NPI:78657 1878 00:00:00 1 DTAP 1997 Completed NPI:[id number] 00:00:00 1 HIB 4 Dose Schedule 1997 Completed NPI:1 [id number] 00:00:00 1 Hep B, Adol or Pedi 1997 Completed NPI:1 [id number] Dosage 00:00:00 1 Polio (IPV/OPV) 1997 Completed NPI:[id number] 1878 00:00:00 1 DTAP 1997 Completed NPI:[id number] 00:00:00 1 HIB 4 Dose Schedule 1997 Completed NPI:1 [id number] 00:00:00 1 Hep B, Adol or Pedi 1997 Completed NPI:1 [id number] Dosage 00:00:00 1 Polio (IPV/OPV) 1997 Completed NPI:[id number] 1878 00:00:00 1 DTAP 1997 Completed NPI:[id number] 00:00:00 1 HIB 4 Dose Schedule 1997 Completed NPI:1 [id number] 00:00:00 1 Hep B, Adol or Pedi 1997 Completed NPI:1 [id number] Dosage 00:00:00 1 Polio (IPV/OPV) 1997 Completed NPI:85230 1878 00:00:00 1 DTAP 1997 Completed NPI:[id number] 00:00:00 1 HIB 4 Dose Schedule 1997 Completed NPI:1 [id number] 00:00:00 1 Hep B, Adol or Pedi 1997 Completed NPI:1 [id number] Dosage 00:00:00 1 Polio (IPV/OPV) 1997 Completed NPI:50583 1878 00:00:00 1 DTAP 1997 Completed NPI:[id number] 00:00:00 1 HIB 4 Dose Schedule 1997 Completed NPI:1 [id number] 00:00:00 1 Hep B, Adol or Pedi 1997 Completed NPI:1 [id number] Dosage 00:00:00 1 Polio (IPV/OPV) 1997 Completed NPI:84955 1878 00:00:00 1 DTAP 1997 Completed NPI:[id number] 00:00:00 1 HIB 4 Dose Schedule 1997 Completed NPI:1 [id number] 00:00:00 1 Hep B, Adol or Pedi 1997 Completed NPI:1 [id number] Dosage 00:00:00 1 Polio (IPV/OPV) 1997 Completed NPI:02839 1878 00:00:00 1 DTAP 1997 Completed NPI:[id number] 00:00:00 1 HIB 4 Dose Schedule 1997 Completed NPI:1 [id number] 00:00:00 1 Hep B, Adol or Pedi 1997 Completed NPI:1 [id number] Dosage 00:00:00 1 Polio (IPV/OPV) 1997 Completed NPI:[id number] 1878 00:00:00 1 Vital Signs Vital Name Observation Time Observation Value Comments Source Systolic blood pressure 2022-01-31 17:13:00 117 mm[Hg] Diastolic blood 2022-01-31 17:13:00 70 mm[Hg] NPI:1 [id number] pressure Heart rate 2022-01-31 17:13:00 69 /min NPI:1831 [id number] Body temperature 2022-01-31 17:13:00 36.94 Eryn Respiratory rate 2022-01-31 17:13:00 18 /min Oxygen saturation in 2022-01-31 17:13:00 100 /min Arterial blood by Pulse oximetry Body height 2022-01-30 11:00:00 157.5 cm NPI:1831 [id number] Body weight 2022-01-30 11:00:00 78.291 kg NPI:1831 276398 BMI 2022-01-30 11:00:00 31.57 kg/m2 NPI:1831 144637 Systolic blood pressure 2022-01-30 14:15:00 117 mm[Hg] Diastolic blood 2022-01-30 14:15:00 70 mm[Hg] NPI:1 [id number] pressure Heart rate 2022-01-30 14:15:00 94 /min NPI:1831 156419 Oxygen saturation in 2022-01-30 14:15:00 95 /min Arterial blood by Pulse oximetry Body temperature 2022-01-30 14:00:00 36.33 Eryn Respiratory rate 2022-01-30 11:00:00 18 /min Body height 2022-01-30 11:00:00 157.5 cm NPI:1831 [id number] Body weight 2022-01-30 11:00:00 78.291 kg NPI:1831 896942 BMI 2022-01-30 11:00:00 31.57 kg/m2 NPI:1831 829565 Systolic blood pressure 2022-01-25 20:51:00 104 mm[Hg] Diastolic blood 2022-01-25 20:51:00 68 mm[Hg] NPI:1 [id number] pressure Heart rate 2022-01-25 20:51:00 62 /min NPI:1831 775329 Body temperature 2022-01-25 20:51:00 37.17 Eryn Respiratory rate 2022-01-25 20:51:00 18 /min Body height 2022-01-25 20:51:00 157.5 cm NPI:1831 498384 Body weight 2022-01-25 20:51:00 78.926 kg NPI:1831 [id number] BMI 2022-01-25 20:51:00 31.83 kg/m2 NPI:1831 281212 Systolic blood pressure 2022-01-18 18:18:00 104 mm[Hg] Diastolic blood 2022-01-18 18:18:00 65 mm[Hg] NPI:1 [id number] pressure Heart rate 2022-01-18 18:18:00 103 /min NPI:1831 611939 Body temperature 2022-01-18 18:18:00 37.5 Eryn Respiratory rate 2022-01-18 18:18:00 18 /min Body height 2022-01-18 18:18:00 157.5 cm NPI:1831 573968 Body weight 2022-01-18 18:18:00 77.565 kg NPI:1831 596913 BMI 2022-01-18 18:18:00 31.28 kg/m2 NPI:1831 650860 Systolic blood pressure 2022-01-11 19:24:00 115 mm[Hg] Diastolic blood 2022-01-11 19:24:00 70 mm[Hg] NPI:1 [id number] pressure Heart rate 2022-01-11 19:24:00 91 /min NPI:1831 133768 Body temperature 2022-01-11 19:24:00 37.17 Eryn Respiratory rate 2022-01-11 19:24:00 18 /min Body height 2022-01-11 19:24:00 157.5 cm NPI:1831 329132 Body weight 2022-01-11 19:24:00 76.204 kg NPI:1831 [id number] BMI 2022-01-11 19:24:00 30.73 kg/m2 NPI:1831 [id number] Procedures Procedure Date / Time Performed Performing Clinician [facility] e CBC WITH DIFF 2022-01-31 09:35:00 MooneyAnnieen Cam NPI:[id number] CBC WITH DIFF 2022-01-31 09:35:00 MooneyAnnieen Cam NPI:[id number] 81 SECTION 2022-01-30 12:32:00 MooneyAnnieen Cam NPI:[id number] 781 SECTION 2022-01-30 12:32:00 MooneyLaron Cam NPI:[id number] 781 HEPATITIS B SURFACE 2022-01-30 11:23:00 MooneyLaron Cam NPI:1831 [id number] ANTIGEN ADC OR ROGELIO ONLY - 2022-01-30 11:23:00 Laron Mooney Cam NPI:18 [id number] RPR HIV 1/2 AG-AB WITH 2022-01-30 11:23:00 MooneyLaron Cam NPI:[id number] REFLEX HEPATITIS B SURFACE 2022-01-30 11:23:00 Laron Mooney Cam NPI:1831 [id number] ANTIGEN ADC OR ROGELIO ONLY - 2022-01-30 11:23:00 MooneyLaron Cam NPI:18 [id number] RPR HIV 1/2 AG-AB WITH 2022-01-30 11:23:00 Laron Mooney Cam NPI:[id number] REFLEX HB ABO GROUPING 2022-01-30 11:20:00 Mooney Laron Cam NPI:[id number] 81 RHO (D) IMMUNE GLOBULIN 2022-01-30 11:20:00 Mooney Laron Cam HB ABO GROUPING 2022-01-30 11:20:00 MooneyAnnieen Cam NPI:[id number] 81 RHO (D) IMMUNE GLOBULIN 2022-01-30 11:20:00 Mooney Laron Cam CONSENT/REFUSAL FOR 2022-01-28 16:01:16 Doctor Unassigned, No OFFICE SWEEPER I:[id number] DIAGNOSIS AND TREATMENT Name ASSIGNMENT OF BENEFITS 2022-01-28 16:01:01 Doctor Unassigned, No Name POCT URINALYSIS W/O 2022-01-25 00:00:00 Christel Miramontes NPI:[id number] SPECIFIC GRAVITY POCT URINALYSIS W/O 2022-01-18 00:00:00 Laron Mooney NPI:1831 [id number] SPECIFIC GRAVITY >14 WEEKS US 2022-01-11 20:22:19 Laron Mooney NPI:1 [id number] LIMITED DSU PRE-OP 2022-01-11 05:01:00 Doctor Unassigned, No NPI:18 [id number] Name POCT URINALYSIS W/O 2022-01-11 00:00:00 Laron Mooney NPI:[id number] SPECIFIC GRAVITY Encounters Start End Encounter Admission Attending Care Care Encounter Source Date/Time Date/Time Type Type Clinicians Facility Department ID 2022-03-07 2022-03-07 Outpatient [address] [facility]AR[facility] [id number] NPI:183 13:00:00 13:00:00 [id number] 1 2022-02-13 2022-02-13 [address] [facility] [id number] NPI:183 10:45:00 10:45:00 [id number] 1 2022-01-30 2022-01-31 Inpatient P LARON MOONEY DCJOSEPH DAGO [id number] NPI:183 05:46:00 17:00:00 [id number] 1 2022-01-30 2022-01-31 [facility] Laron Mooney DCJOSEPH 1.2.840.114 [id number] NPI:183 05:46:00 17:00:00 Encounter Cam [place] 350.1.13.10 [id number] [place] 4.2.7.2.686 [place] [id number] 2022-01-30 2022-01-30 Surgery Laron Mooney DCJOSEPH 1.2.620.999 [id number] NPI:183 08:00:00 09:29:00 Cam [place] 350.1.13.10 [id number] [place] 4.2.7.2.686 [place] [id number] 2022-01-28 2022-01-28 Refractory Furnace Designer Emmanuel, Adc Lab Main [facility] 1.2.8 40.114 [id number] NPI:183 11:15:00 11:30:00 Visit Laron Mooney 350.1.13.10 [id number] [place] 4.2.7.2.686 [place] [id number] [address] 2022-01-28 2022-01-[address] [facility] [id number] NPI:183 11:15:00 11:15:00 [id number] 1 2022-01-28 2022-01-28 [address] [facility] [id number] NPI:183 11:15:00 11:15:00 [id number] 1 2022-01-28 2022-01-28 Laboratory Only, Adc Test [facility] 1.2.840. 114 [id number] NPI:183 11:00:00 11:15:00 Only Laron Mooney 350.1.13.10 [id number] [place] 4.2.7.2.686 [place] [id number] 2022-01-28 2022-01-28 Orders Doctor LESLEE 1.2.840.114 [id number] NPI:183 00:00:00 00:00:00 Only Unassigned, DEIRDRE 350.1.13.10 [id number] [place] [address].2.7.2.686 [id number] [id number] 2022-01-25 2022-01-25 Routine Laron Mooney [facility] 1.2.840.114 [id number] NPI:183 15:30:00 15:45:00 Christel Miramontes 350.1.13.10 [id number] Visit [place] 4.2.7.2.686 [place] [id number] 2022-01-25 2022-01-[address] [facility] [id number] NPI:183 15:30:00 15:30:00 CHRISTEL [id number] 1 2022-01-25 2022-01-[address] [facility] [id number] NPI:183 15:30:00 15:30:00 CHRISTEL [id number] 1 2022-01-18 2022-01-18 Outpatient [address] [facility] [id number] NPI:183 13:00:00 13:36:58 [id number] 1 2022-01-18 2022-01-18 Routine Laron Mooney [facility] 1.2.681.490 [id number] NPI:183 13:00:00 13:36:58 Cam [place] 350.1.13.10 [id number] Visit [place] 4.2.7.2.686 [place] [id number] 2022-01-11 2022-01-11 Routine Laron Mooney [facility] 1.2.767.449 [id number] NPI:183 14:00:00 14:54:05 Cam [place] 350.1.13.10 [id number] Visit [place] 4.2.7.2.686 [place] [id number] 2022-01-11 2022-01-11 Orders Doctor LESLEE 1.2.840.114 [id number] NPI:183 00:00:00 00:00:00 Only Unassigned, DEIRDRE 350.1.13.10 [id number] [place] [facility] 4.2.7.2.686 [id number] 009 2020-11-23 2020-11-23 Routine Laron Mooney [facility] 1.2.489.545 [id number] 14:01:45 14:34:40 Cam [place] 350.1.13.10 Visit [place] 4.2.7.2.686 [place] [id number] [address] 2020-11-11 2020-11-11 Nurse Nurse, [facility] 1.2.840.114 [id number] 10:47:22 11:08:04 Visit Women's [place] 350.1.13.10 Health [place] 4.2.7.2.686 [place] [id number] [address] 2020-10-28 2020-10-29 Hospital Laron Mooney [facility] 1.2.840.114 [id number] 05:30:00 22:30:00 Encounter Cam [place] 350.1.13.10 [place] 4.2.7.2.686 [place] [id number] 2020-10-27 2020-10-27 Laboratory Only, [facility] 1.2.840.114 [id number] 10:13:02 10:28:02 Only Test [place] 350.1.13.10 [place] 4.2.7.2.686 [place] [id number] 2020-10-21 2020-10-21 Routine Laron Mooney [facility] 1.2.246.588 [id number] 14:52:05 16:19:18 Cam [place] 350.1.13.10 Visit [place] 4.2.7.2.686 [place] [id number] [address] 2020-10-21 2020-10-21 Orders Doctor LESLEE 1.2.840.114 [id number] 00:00:00 00:00:00 Only Unassigned, DEIRDRE 350.1.13.10 [place] [facility] 4.2.7.2.686 [id number] 009 2020-10-14 2020-10-14 Routine Laron Mooney [facility] 1.2.430.079 [id number] 15:47:58 16:38:20 Cam [place] 350.1.13.10 Visit [place] 4.2.7.2.686 [place] [id number] [address] 2020-10-14 2020-10-14 Refractory Furnace Designer 2, [facility] [place] 1.2.840.114 [id number] 15:31:53 15:46:53 Visit [place] 350.1.13.10 [place] 4.2.7.2.686 [place] [id number] [address] 2020-10-14 2020-10-14 Case Laron Mooney [facility] 1.2.837.378 [id number] 00:00:00 00:00:00 Management Cam [place] 350.1.13.10 [place] 4.2.7.2.686 [place] [id number] [address] 2020-10-112020-10-11 Telephone Laron Mooney [facility] 1.2.840.114 [id number] 00:00:00 00:00:00 Cam [place] 350.1.13.10 [place] 4.2.7.2.686 [place] [id number] [address] 2020-10-07 2020-10-07 Routine Laron Mooney [facility] 1.2.082.691 [id number] 08:18:49 09:18:03 Cam [place] 350.1.13.10 Visit [place] 4.2.7.2.686 [place] [id number] [address] 2020-10-06 2020-10-06 Telephone Laron Mooney [facility] 1.2.840.114 [id number] 00:00:00 00:00:00 Cam [place] 350.1.13.10 [place] 4.2.7.2.686 [place] [id number] [address] 2020-10-02 2020-10-02 Emergency Edgardo Recinos [facility] 1.2.840. 114 [id number] 14:07:00 19:02:00 Laron Mooney 350.1.13.10 [place] 4.2.7.2.686 [place] [id number] 2020-09-22 2020-09-22 Routine Laron Mooney [facility] 1.2.853.545 [id number] 15:22:19 15:43:16 Cam [place] 350.1.13.10 Visit [place] 4.2.7.2.686 [place] [id number] [address] 2020-09-13 2020-09-13 Orders Doctor LESLEE 1.2.840.114 [id number] 00:00:00 00:00:00 Only Unassigned, DEIRDRE 350.1.13.10 [place] [facility] 4.2.7.2.686 [id number] [id number] 2020-09-08 2020-09-08 Routine Amada [facility] [id number] 10:04:39 10:19:39 Christel [place] 350.1.13.10 Visit [place] 4.2.7.2.686 Profess[place] [id number] [address] 2020-09-01 2020-09-01 Case Laron Mooney [facility] [id number] 00:00:00 00:00:00 Management Padmini Mich [id number] [place] 4.2.7.2.686 [place] [phone] [address] Results Test Description Test Time Test Comments Results Result Comments Source CBC with Differential 2022-01-31 10:53:39 Test Item Value Reference Range Interpretation Comme nts WBC (test code = 6690-2) See_Comment [A utomated message] The system which ge nerated this result transmit kasi reference range: 4.30 - 1 1.10 10*3/?L. The reference r sunny was not used to interpr et this result as normal/abnor mal. RBC (test code = 789-8) See_Comment L [Au tomated message] The system which ge nerated this result transmit kasi reference range: 3.93 - 5 .25 10*6/?L. The reference r sunny was not used to interpr et this result as normal/abnor mal. HGB (test code = 718-7) 10.5 g/dL 11.6-15.0 L HCT (test code = 4544-3) 33.1 % 35.7-45.2 L MCV (test code = 787-2) 86.0 fL 80.6-95.5 MCH (test code = 785-6) 27.3 pg 25.9-32.8 MCHC (test code = 786-4) 31.7 g/dL 31.6-35.1 RDW-SD (test code = 82267-9) 47.1 fL 39.0-49.9 RDW-CV (test code = 788-0) 15.4 % 12.0-15.5 PLT (test code = 777-3) See_Comment [Au tomated message] The system which ge nerated this result transmit kasi reference range: 166 - 35 8 10*3/?L. The reference range was not used to interpret th is result as normal/abnormal . MPV (test code = 11824-9) 13.1 fL 9.5-12.9 H IPF % (test code = 12.8 % 1.3-7.7 H Platelet count measured by [id number]) fluorescence me thod. NRBC/100 WBC (test code = See_Comment [ Automated message] The [id number]) system which [employer] nerated this result transmit kasi reference range: 0.0 - 10 .0 /100 WBCs. The reference r sunny was not used to interpr et this result as normal/abnor mal. NRBC x10^3 (test code = <0.01 See_Comment [Au tomated message] The [id number]) system which [employer] nerated this result transmit kasi reference range: 10*3/?L. The reference range was not u sed to interpret this result as normal/abnormal . GRAN MAT (NEUT) % (test code 75.6 % = 770-8) IMM GRAN % (test code = 0.30 % [id number]) LYMPH % (test code = 736-9) 15.9 % MONO % (test code = 5905-5) 6.8 % EOS % (test code = 713-8) 1.1 % BASO % (test code = 706-2) 0.3 % GRAN MAT x10^3(ANC) (test 6.65 10*3/uL 1.88-7.09 code = [id number]) IMM GRAN x10^3 (test code = 0.03 10*3/uL 0.00-0.06 [id number]) LYMPH x10^3 (test code = 1.40 10*3/uL 1.32-3.29 731-0) MONO x10^3 (test code = 0.60 10*3/uL 0.33-0.92 742-7) EOS x10^3 (test code = 0.10 10*3/uL 0.03-0.39 711-2) BASO x10^3 (test code = 0.03 10*3/uL 0.01-0.07 704-7) Lab Interpretation (test Abnormal code = 81971-5) NPI:[id number] with [id number] 10:53:39 Test Item Value Reference Range Interpretation Comments WBC (test code = See_Comment [Automated 6690-2) message] The sy stem which generated this result transmitted reference range : 4.30 - 11.10 10*3/?L. The reference range was not used to interpret this result as normal/abnormal . RBC (test code = See_Comment L [Automated 789-8) message] The sy stem which generated this result transmitted reference range : 3.93 - 5.25 10*6/?L. The reference range was not used to interpret this result as normal/abnormal . HGB (test code = 10.5 g/dL 11.6-15.0 L 718-7) HCT (test code = 33.1 % 35.7-45.2 L 4544-3) MCV (test code = 86.0 fL 80.6-95.5 787-2) MCH (test code = 27.3 pg 25.9-32.8 785-6) MCHC (test code = 31.7 g/dL 31.6-35.1 786-4) RDW-SD (test code = 47.1 fL 39.0-49.9 16639-5) RDW-CV (test code = 15.4 % 12.0-15.5 788-0) PLT (test code = See_Comment [Automated 777-3) message] The sy stem which generated this result transmitted reference range : 166 - 358 10*3/ ?L. The reference r sunny was not used to interpret this result as normal/abnormal . MPV (test code = 13.1 fL 9.5-12.9 H 28066-0) IPF % (test code = 12.8 % 1.3-7.7 H Platelet count [id number]) measured by fluorescence method. NRBC/100 WBC (test See_Comment [Automat ed code = [id number]) message] The system which generated this result transmitted reference range : 0.0 - 10.0 /100 WBCs. The refer ence range was not u sed to interpret th is result as normal/abnormal . NRBC x10^3 (test code <0.01 See_Comment [Auto mated = [id number]) message] The s ystem which generated this result transmitted reference range : 10*3/?L. The reference range was not used to interpret this result as normal/abnormal . GRAN MAT (NEUT) % 75.6 % (test code = 770-8) IMM GRAN % (test code 0.30 % = 1629613097) LYMPH % (test code = 15.9 % 736-9) MONO % (test code = 6.8 % 5905-5) EOS % (test code = 1.1 % 713-8) BASO % (test code = 0.3 % 706-2) GRAN MAT x10^3(ANC) 6.65 10*3/uL 1.88-7.09 (test code = 9286552647) IMM GRAN x10^3 (test 0.03 10*3/uL 0.00-0.06 code = 3877201636) LYMPH x10^3 (test code 1.40 10*3/uL 1.32-3.29 = 731-0) MONO x10^3 (test code 0.60 10*3/uL 0.33-0.92 = 742-7) EOS x10^3 (test code = 0.10 10*3/uL 0.03-0.39 711-2) BASO x10^3 (test code 0.03 10*3/uL 0.01-0.07 = 704-7) Lab Interpretation Abnormal (test code = 79510-9) NPI:[id number] OR ROGELIO ONLY - [id number] 08:20:46 Test Item Value Reference Range Interpretation Comments RPR (Qualitative) (test code = Nonreactive Nonreactive 01276-3) Lab Interpretation (test code = Normal 90574-2) NPI:[id number] OR ROGELIO ONLY - [id number] 08:20:46 Test Item Value Reference Range Interpretation Comments RPR (Qualitative) (test code = Nonreactive Nonreactive 04464-5) Lab Interpretation (test code = Normal 02865-5) NPI:[id number] B Surface [id number] 15:26:16 Test Item Value Reference Range Interpretation Comments HBsAg Semi-Quantitative (test code = Negative Negative 5195-3) NPI:[id number] B Surface [id number] 15:26:16 Test Item Value Reference Range Interpretation Comments HBsAg Semi-Quantitative (test code = Negative Negative 5195-3) NPI:[id number] (D) IMMUNE [id number] 15:17:42 Test Item Value Reference Range Interpretation Comments RHIG CANDIDATE? No- see comment Patient i s not a (test code = candidate for R hIg- 5055) Patient is Rh Positive.Perfor med at [facility] Blood [address] Free: [phone] A No. [id number] NPI:[id number] (D) IMMUNE [id number] 15:17:42 Test Item Value Reference Range Interpretation Comments RHIG CANDIDATE? No- see comment Patient i s not a (test code = candidate for R hIg- 5055) Patient is Rh Positive.Perfor med at [facility] Blood [address] [place] [address] Free: [phone] A No. [id number] NPI:[id number] 1/2 AG-AB WITH [id number] 13:23:59 Test Item Value Reference Range Interpretation Comments HIV Negative Negative Semi-quantitative (test code = 36752-2) SUSANNAH (test code = Non-reactive for HIV-1 SUSANNAH) antigen and HIV-1/HIV-2 antibodies. ?No laboratory evidence of HIV infection. ?Repeat in 2-4 weeks if acute HIV infection is suspected. NPI:[id number] 1/2 AG-AB WITH [id number] 13:23:59 Test Item Value Reference Range Interpretation Comments HIV Negative Negative Semi-quantitative (test code = 59856-4) SUSANNAH (test code = Non-reactive for HIV-1 SUSANNAH) antigen and HIV-1/HIV-2 antibodies. ?No laboratory evidence of HIV infection. ?Repeat in 2-4 weeks if acute HIV infection is suspected. NPI:[id number] and Screen - ONCE [id number] 12:09:22 Test Item Value Reference Range Interpretation Comments ABO & RH (test code O Positive Performe d at [facility] = 20) Laboratory [facility] [address] Free: [phone] A No. [id number] IAT (test code = Negative Performed a t [facility] 1185) Laboratory [facility] [address] [place] [address] Free: [phone] A No. [id number] NPI:[id number] and Screen - ONCE [id number] 12:09:22 Test Item Value Reference Range Interpretation Comments ABO & RH (test code O Positive Performe d at [facility] = 20) Laboratory [facility] [place] [address] Free: [phone] A No. [id number] IAT (test code = Negative Performed a t [facility] 1185) Laboratory [facility] [place] [address] Free: [phone] A No. [id number] NPI:[id number] URINALYSIS W/O SPECIFIC [id number] 20:59:00 Test Item Value Reference Range Interpretation Comments POCT PH U (test code = 3254) n/a 5-8 POCT U LEUK EST (test code = 3263) n/a Negative - Negative POCT U NIT (test code = 3262) n/a Negative - Negative POCT U PROT (test code = 3259) neg Negative - Negative POCT U GLU (test code = 3256) neg Negative - Negative POCT U KETONE (test code = 3258) n/a Negative - Negative POCT U BLD (test code = 3257) n/a Negative - Negative NPI:[id number] URINALYSIS W/O SPECIFIC [id number] 18:20:00 Test Item Value Reference Range Interpretation Comments POCT PH U (test code = 3254) N/A 5-8 POCT U LEUK EST (test code = N/A Negative - Negative 3263) POCT U NIT (test code = 3262) N/A Negative - Negative POCT U PROT (test code = 3259) Negative Negative - Negative POCT U GLU (test code = 3256) Negative Negative - Negative POCT U KETONE (test code = 3258) N/A Negative - Negative POCT U BLD (test code = 3257) N/A Negative - Negative NPI:[id number] URINALYSIS W/O SPECIFIC [id number] 19:40:00 Test Item Value Reference Range Interpretation Comments POCT PH U (test code = 3254) N/A 5-8 POCT U LEUK EST (test code = N/A Negative - Negative 3263) POCT U NIT (test code = 3262) N/A Negative - Negative POCT U PROT (test code = 3259) Trace Negative - Negative POCT U GLU (test code = 3256) Negative Negative - Negative POCT U KETONE (test code = 3258) N/A Negative - Negative POCT U BLD (test code = 3257) N/A Negative - Negative
--- NOTE | 2022-02-04 08:18 | EDPHYS ---
Physician Documentation [facility] Name: Yesica Islas Age: 26 yrs Sex: Female : 1995 Arrival Date: 02/04/2022 Time: 08:01 Bed Waiting Private MD: ED Physician Waqas Siddiqi HPI: 02/04 08:19 This 26 yrs old Female presents to ER via Ambulatory with complaints of Ear pm1 Pain. 08:19 The patient presents with pain, that is acute. The complaints affect the right ear. pm1 Onset: The symptoms/episode began/occurred yesterday. Modifying factors: The symptoms are alleviated by nothing, the symptoms are aggravated by nothing. Associated signs and symptoms: The patient has no apparent associated signs or symptoms, Pertinent negatives: cough, fever, dental pain. Severity of symptoms: in the emergency department the symptoms are unchanged. The patient has not experienced similar symptoms in the past. 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 - Social history:: Smoking status: Patient denies any tobacco usage or history of. ROS: 08:19 Constitutional: Negative for fever, chills, and weight loss. pm1 08:19 Neck: Negative for injury, pain, and swelling, Cardiovascular: Negative for chest pain, palpitations, and edema, Respiratory: Negative for shortness of breath, cough, wheezing, and pleuritic chest pain, MS/Extremity: Negative for injury and deformity, Skin: Negative for injury, rash, and discoloration, Neuro: Negative for headache, weakness, numbness, tingling, and seizure. 08:19 ENT: Positive for ear pain, Negative for sore throat. 08:19 All other systems are negative. Exam: 08:19 Constitutional: This is a well developed, well nourished patient who is awake, alert, pm1 and in no acute distress. Head/Face: Normocephalic, atraumatic. 08:19 Skin: Warm, dry with normal turgor. Normal color with no rashes, no lesions, and no evidence of cellulitis. MS/ Extremity: Pulses equal, no cyanosis. Neurovascular intact. Full, normal range of motion. 08:19 Eyes: Exam is negative for acute changes, Periorbital structures: appear normal, Pupils: no acute changes, Extraocular movements: no acute changes. 08:19 ENT: TM's: erythema, that is mild, on the right, Examination of the other ear shows no obvious abnormality, Mouth: no acute changes, Lips: normal, moist, Oral mucosa: normal, pink and intact, moist. 08:19 Neck: Exam negative for acute changes. 08:19 Cardiovascular: Exam negative for acute changes, Rate: normal, Rhythm: regular, Pulses: no pulse deficits are appreciated. 08:19 Respiratory: Exam negative for acute changes, respiratory distress, shortness of breath. 08:19 Neuro: Exam negative for acute changes, Orientation: is normal, Mentation: is normal, Motor: moves all fours. Vital Signs: 08:08 Pulse 82; Resp 15; Temp 98.2(TE); Pulse Ox 99% on R/A; Height 5 ft. 2 in. (157.48 cm); ss Pain 8/10; 08:08 BP 141 / 86; ss MDM: 08:16 Data reviewed: vital signs. Data interpreted: Pulse oximetry: on room air is 99 %. pm1 Interpretation: normal. Counseling: I had a detailed discussion with the patient and/or guardian regarding: the historical points, exam findings, and any diagnostic results supporting the discharge/admit diagnosis, the need for outpatient follow up, to return to the emergency department if symptoms worsen or persist or if there are any questions or concerns that arise at home. 08:17 Patient medically screened. pm1 08:20 ED course: Patient is taking [place] at home for her pain d/t recent . pm1 Administered Medications: 08:27 Drug: Rocephin (cefTRIAXone) 1 grams Route: IM; Site: right gluteus; ss 08:45 Follow up: Response: No adverse reaction ss Disposition Summary: 02/04/22 08:17 Discharge Ordered Location: Home pm1 Problem: new pm1 Symptoms: have improved pm1 Condition: Stable pm1 Diagnosis - Otitis media, unspecified, right ear pm1 Followup: pm1 - With: Emergency Department - When: As needed - Reason: Worsening of condition Followup: pm1 - With: Private Physician - When: 2 - 3 days - Reason: Recheck today's complaints, Continuance of care, Re-evaluation by your physician Discharge Instructions: - Discharge Summary Sheet pm1 - Otitis Media, Adult pm1 Forms: - Medication Reconciliation Form pm1 - Thank You Letter pm1 - Antibiotic Education pm1 - Prescription Opioid Use pm1 - Work release form eb Prescriptions: - Amoxicillin 500 mg Oral Capsule - take 1 capsule by ORAL route every 8 hours for 10 days; 30 tablet; Refills: 0, pm1 Product Selection Permitted Signatures: Mya Young, RN RN ss Jayant Andrade NP TELEMETRY NURSE pm1
--- NOTE | 2022-02-04 08:18 | ER ---
Nurse's Notes [facility] Name: Yesica Islas Age: 26 yrs Sex: Female : 1995 Arrival Date: 02/04/2022 Time: 08:01 Bed Waiting Private MD: Diagnosis: Otitis media, unspecified, right ear Presentation: 02/04 08:08 Chief complaint: Patient states: R earache that began 2 days ago. Denies fever. ss Coronavirus screen: Client denies travel out of the [place] in the last 14 days. Ebola Screen: Patient denies exposure to infectious person. Patient denies travel to an Ebola-affected area in the 21 days before illness onset. Initial Sepsis Screen: Does the patient meet any 2 criteria? No. Patient's initial sepsis screen is negative. Does the patient have a suspected source of infection? No. Patient's initial sepsis screen is negative. Risk Assessment: Do you want to hurt yourself or someone else? Patient reports no desire to harm self or others. Onset of symptoms was February 04, 2022. 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 - Social history:: Smoking status: Patient denies any tobacco usage or history of. Screenin:13 Abuse screen: Denies threats or abuse. Denies injuries from another. Nutritional ss screening: No deficits noted. Tuberculosis screening: Never had TB. Fall Risk None identified. Assessment: 08:13 General: Appears in no apparent distress. Behavior is calm, cooperative. Pain: ss Complains of pain in right ear Pain currently is 8 out of 10 on a pain scale. Quality of pain is described as aching, Pain began 2-3 days ago. Is continuous. Neuro: Love Agitation-Sedation Scale (RASS): 0 - Alert and Calm Level of Consciousness is awake, alert, obeys commands, Oriented to person, place, time, situation. Cardiovascular: Capillary refill < 3 seconds is brisk in bilateral fingers. Respiratory: Airway is patent Respiratory effort is even, unlabored, Respiratory pattern is regular, symmetrical. GI: No signs and/or symptoms were reported involving the gastrointestinal system. EENT: Throat is clear. Derm: Skin is intact, is healthy with good turgor, Skin is dry, Skin is pink, warm \T\ dry. normal. Vital Signs: 08:08 Pulse 82; Resp 15; Temp 98.2(TE); Pulse Ox 99% on R/A; Height 5 ft. 2 in. (157.48 cm); ss Pain 8/10; 08:08 BP 141 / 86; ss ED Course: 08:01 Patient arrived in ED. mr 08:07 Jayant Andrade, ALIVIA is PHCP. pm1 08:07 Waqas Siddiqi MD is Attending Physician. pm1 08:10 Triage completed. ss 08:10 Arm band placed on right wrist. ss 08:13 Patient has correct armband on for positive identification. Bed in low position. Call ss light in reach. 08:13 No provider procedures requiring assistance completed. ss 08:46 Patient did not have IV access during this emergency room visit. ss Administered Medications: 08:27 Drug: Rocephin (cefTRIAXone) 1 grams Route: IM; Site: right gluteus; ss 08:45 Follow up: Response: No adverse reaction Outcome: 08:17 Discharge ordered by . pm1 08:46 Discharged to home ambulatory. ss 08:46 Condition: good 08:46 Discharge instructions given to patient, Instructed on discharge instructions, follow up and referral plans. medication usage, Demonstrated understanding of instructions, follow-up care, medications, Prescriptions given X 1. 08:46 Patient left the ED. Signatures: Jcoelynn Sainz mr YoungMya, RN RN ss Jayant Andrade, PROTOTYPE ASSEMBLER ELECTRONICS PROTOTYPE ASSEMBLER ELECTRONICS pm1
[2022-02-04] MEDS ORDERED: CEFTRIAXONE 1000 MG/VIAL ONE (08:21)
[2022-02-04] MEDS ORDERED: WATER FOR INJ,STERILE 10 ML ONE (08:22)
[2022-02-04 08:54] VITALS: BP 141/86; TEMP 98.2; O2SAT 99
== END 2022-02-04 08:46 | disposition home or self-care (01) ==
LOC: ER 07:57
DX: H66.91 Otitis media, unspecified, right ear (principal)
CPT/HCPCS: 96372; 99283

== ENCOUNTER 2022-05-12 20:18 | Emergency (ER) | payer OTHER ==
--- OUTSIDE RECORDS SUMMARY | 2022-05-12 20:22 | XMS REPORT | Continuity of Care Document ---
:1995 Author Organization [facility] t Address [address] [place] [address] [address]. [address] [place] [address] Care Team Providers Name Role Phone Lawrence, Tj Mae Primary Care Physician Laron Mooney MD Attending Clinician Doctor Unassigned, [place] Attending Clinician Unavailable LARON MOONEY Attending Clinician Unavailable Nurse, [facility] Attending Clinician Unavailable Only, Adc Test Attending Clinician Unavailable 2, [facility] Lab Attending Clinician Unavailable Edgardo Recinos MD Attending Clinician Christel Miramontes PA-C Attending Clinician Mart Steele Attending Clinician Unavailable Laron Mooney MD Admitting Clinician Payers Payer Name Policy Type Policy Number Effective Date Expiration Date S ource Problems Condition Condition Condition Status Onset Resolution Last Treating Co mments Source Name Details Category Date Date Treatment Clinician Date Liveborn Liveborn Disease Active Unive rs , of infant, of 1-28 [place] y of [place] born [place] born in [facility] by by delivery delivery Obesity Obesity Disease Active 2019-10 Univers (BMI (BMI 1-25 ity of 30-39.9) 30-39.9) 00:00: [place] 00 Medical Branch Previous Previous Disease Active Unive rs 9-30 ity of section section 00:00: [place] 00 Medical Branch Allergies, Adverse Reactions, Alerts Allergy Allergy Status Severity Reaction(s) Onset Inactive Treating Comm ents Source Name Type Date Date Clinician No Known DA Active U 2019-10 [facility]05 Allergie 00:00: 00 NO KNOWN Drug Active Univers ALLERGIE Class ity of S [facility] Social History Social Habit Start Date Stop Date Quantity Comments Source Exposure to 2022-02-25 2022-03-07 Not sure [facility] SARS-CoV-2 (event) 00:00:00 13:06:00 [facility] Alcohol intake 2022-03-07 2022-03-07 0 /d [facility] 00:00:00 00:00:00 Medical [place] Tobacco use and 2016-03-09 2016-03-09 Never used [facility] exposure 00:00:00 00:00:00 Medical Branch Sex Assigned At [birth year] [facility] 00:00:00 00:00:00 Medical [place] Smoking Status Start Date Stop Date Source Never smoker [facility] Medications Ordered Filled Start Stop Current Ordering Indication Dosage Frequency Signature Comments Components Source Medication Medication Date Date Medication? Clinician (SIG) Name Name etonogestre 2021- No [id number] 68mg Univers L 03-07-07 ity of (NEXPLANON) 21:15: 20:13 [place] implant 68 00 :00 Medical Branch etonogestre 2021- No [id number] 68mg 68 mg, Univers L 03-07 Subdermal, ity of (NEXPLANON) 21:15: 20:13 ONCE NOW, [place] implant 68 00 :00 1 dose, On Med ical mg e 03/07/22 Branch at 1615, Routine
Use approved by: ENVIRONMENTAL ECONOMIST Yes [id number] 1{tbl} Take 1 Univers vitamin 5-03 tablet by ity of w/FA tablet 00:00: mouth [place] 00 daily. Medical Branch ferrous Yes [id number] 325mg Take 1 Un sowmya sulfate 325 5-03 tablet by ity of mg (65 mg 00:00: mouth 2 [place] iron) 00 (two) Medical tablet times Branch daily. 2021- Yes [id number] 1{tbl} Take 1 Univers vitamin 5-03 tablet by ity of w/FA tablet 00:00: mouth [place] 00 daily. Medical Branch ferrous 2021- Yes [id number] 325mg Take 1 Un sowmya sulfate 325 5-03 tablet by ity of mg (65 mg 00:00: mouth 2 [place] iron) 00 (two) Medical tablet times Branch daily. Yes [id number] 1{tbl} Take 1 Univers vitamin 5-03 tablet by ity of w/FA tablet 00:00: mouth [place] 00 daily. Medical Branch ferrous Yes [id number] 325mg Take 1 Un sowmya sulfate 325 5-03 tablet by ity of mg (65 mg 00:00: mouth 2 [place] iron) 00 (two) Medical tablet times Branch daily. 0 Yes [id number] 1{tbl} Take 1 Univers vitamin 5-03 tablet by ity of w/FA tablet 00:00: mouth [place] 00 daily. Medical Branch ferrous Yes [id number] 325mg Take 1 Un sowmya sulfate 325 5-03 tablet by ity of mg (65 mg 00:00: mouth 2 [place] iron) 00 (two) Medical tablet times Branch daily. acetaminoph 2021- No [id number] 650mg Take 2 Univers en 325 mg 5-03 06-07 tablets by ity of tablet 00:00: 00:00 mouth [place] 00 :00 every 6 Medical (six) Branch hours as needed for Pain (scale 1-3) or Pain (scale 4-6). docusate 2021- No [id number] 240mg Take 1 Univers calcium 240 -12 04-07 capsule by i ty of mg capsule 00:00: 00:00 mouth once [place] 00 :00 daily as Medical needed for Branch Constipati on. ibuprofen 2021- No [id number] 600mg Take 1 Univers 600 mg 5-03 06-07 tablet by ity of tablet 00:00: 00:00 mouth [place] 00 :00 every 6 Medical (six) Branch hours as needed (Pain). Take with food or milk. Immunizations Ordered Immunization Filled Immunization Date Status Commen ts Source Name Name [facility] 2021-11-30 Completed University of 00:00:00 [facility] TDAP 2021-11-30 Completed University of 00:00: [facility] TDAP 2021-11-30 Completed University of 00:00:00 [facility] TDAP 2021-11-30 Completed University of 00:00:00 [facility] Influenza Virus 2021-08-19 Completed Universit y of [...] Branch TDAP 2020-08-25 Completed University of 00:00:00 [facility] TDAP 2020-08-25 Completed University of 00:00:00 [facility] TDAP 2020-08-25 Completed University of 00:00:00 [facility] TDAP 2020-08-25 Completed University of 00:00:00 [facility] Influenza Virus 2020-06-30 Completed Universit y of [...] Branch HPV 2012-02-08 Completed University of 00:00:00 [facility] HPV 2012-02-08 Completed University of 00:00:00 [facility] HPV 2012-02-08 Completed University of 00:00:00 [facility] HPV 2012-02-08 Completed University of 00:00:00 [facility] HPV 2011-10-31 Completed University of 00:00:00 [facility] HPV 2011-10-31 Completed University of 00:00:00 [facility] HPV 2011-10-31 Completed University of 00:00:00 [facility] HPV 2011-10-31 Completed University of 00:00:00 [facility] HPV 2011-07-13 Completed University of 00:00:00 [facility] HPV 2011-07-13 Completed University of 00:00:00 [facility] HPV 2011-07-13 Completed University of 00:00:00 [facility] HPV 2011-07-13 Completed University of 00:00:00 [facility] Meningococcal 2010-12-28 Completed University of Polysaccharide 00:00:00 [place] Medi raymond (groups A, C, Y and Branc h W-135) conjugate vaccine (MCV4P) TDAP 2010-12-28 Completed University of 00:00:00 [facility] Varicella 2010-12-28 Completed University of (varivax)(chicken 00:00:00 [place] M edical pox) Branch Meningococcal 2010-12-28 Completed University of Polysaccharide 00:00:00 [place] Medi raymond (groups A, C, Y and Branc h W-135) conjugate vaccine (MCV4P) TDAP 2010-12-28 Completed University of 00:00:00 [facility] Varicella 2010-12-28 Completed University of (varivax)(chicken 00:00:00 [place] M edical pox) Branch Meningococcal 2010-12-28 Completed University of Polysaccharide 00:00:00 [place] Medi raymond (groups A, C, Y and Branc h W-135) conjugate vaccine (MCV4P) TDAP 2010-12-28 Completed University of 00:00:00 [facility] Varicella 2010-12-28 Completed University of (varivax)(chicken 00:00:00 [place] M edical pox) Branch Meningococcal 2010-12-28 Completed University of Polysaccharide 00:00:00 [place] Medi raymond (groups A, C, Y and Branc h W-135) conjugate vaccine (MCV4P) TDAP 2010-12-28 Completed University of 00:00:00 [facility] Varicella 2010-12-28 Completed University of (varivax)(chicken 00:00:00 [place] M edical pox) Branch DTAP 2002-06-30 Completed University of 00:00:00 [facility] MMR 2002-06-30 Completed University of 00:00:00 [facility] Polio (IPV/OPV) 2002-06-30 Completed Universit y of 00:00:00 [facility] DTAP 2002-06-30 Completed University of 00:00:00 [facility] MMR 2002-06-30 Completed University of 00:00:00 [facility] Polio (IPV/OPV) 2002-06-30 Completed Universit y of 00:00:00 [facility] DTAP 2002-06-30 Completed University of 00:00:00 [facility] MMR 2002-06-30 Completed University of 00:00:00 [facility] Polio (IPV/OPV) 2002-06-30 Completed Universit y of 00:00:00 [facility] DTAP 2002-06-30 Completed University of 00:00:00 [facility] MMR 2002-06-30 Completed University of 00:00:00 [facility] Polio (IPV/OPV) 2002-06-30 Completed Universit y of 00:00:00 [facility] HEPATITIS A 2001-01-17 Completed University of 00:00:00 [facility] Pneumococcal 7 2001-01-17 Completed University of Conjugate, PCV7 00:00:00 [facility] ical (Prevnar7) [place] HEPATITIS A 2001-01-17 Completed University of 00:00:00 [facility] Pneumococcal 7 2001-01-17 Completed University of Conjugate, PCV7 00:00:00 [place] Med ical (Prevnar7) [place] HEPATITIS A 2001-01-17 Completed University of 00:00:00 [facility] Pneumococcal 7 2001-01-17 Completed University of Conjugate, PCV7 00:00:00 [place] [facility] ical (Prevnar7) [place] HEPATITIS A 2001-01-17 Completed University of 00:00:00 [facility] Pneumococcal 7 2001-01-17 Completed University of Conjugate, PCV7 00:00:00 [facility] ical (Prevnar7) Branch DTAP 1998-12-09 Completed University of 00:00:00 [facility] HIB 4 Dose Schedule 1998-12-09 Completed Unive rsity of 00:00:00 [facility] Polio (IPV/OPV) 1998-12-09 Completed Universit y of 00:00:00 [facility] DTAP 1998-12-09 Completed University of 00:00:00 [facility] HIB 4 Dose Schedule 1998-12-09 Completed Unive rsity of 00:00:00 [facility] Polio (IPV/OPV) 1998-12-09 Completed Universit y of 00:00:00 [facility] DTAP 1998-12-09 Completed University of 00:00:00 [facility] HIB 4 Dose Schedule 1998-12-09 Completed Unive rsity of 00:00:00 [facility] Polio (IPV/OPV) 1998-12-09 Completed Universit y of 00:00:00 [facility] DTAP 1998-12-09 Completed University of 00:00:00 [facility] HIB 4 Dose Schedule 1998-12-09 Completed Unive rsity of 00:00:00 [facility] Polio (IPV/OPV) 1998-12-09 Completed Universit y of 00:00:00 [facility] MMR 1998-07-20 Completed University of 00:00:00 [facility] Polio (IPV/OPV) 1998-07-20 Completed Universit y of 00:00:00 [facility] Varicella 1998-07-20 Completed University of (varivax)(chicken 00:00:00 [place] M edical pox) Branch MMR 1998-07-20 Completed University of 00:00:00 [facility] Polio (IPV/OPV) 1998-07-20 Completed Universit y of 00:00:00 [facility] Varicella 1998-07-20 Completed University of (varivax)(chicken 00:00:00 [facility] edical pox) Branch MMR 1998-07-20 Completed University of 00:00:00 [facility] Polio (IPV/OPV) 1998-07-20 Completed Universit y of 00:00:00 [facility] Varicella 1998-07-20 Completed University of (varivax)(chicken 00:00:00 [place] M edical pox) Branch MMR 1998-07-20 Completed University of 00:00:00 [facility] Polio (IPV/OPV) 1998-07-20 Completed Universit y of 00:00:00 [facility] Varicella 1998-07-20 Completed University of (varivax)(chicken 00:00:00 [place] M edical pox) Branch DTAP 1998-05-20 Completed University of 00:00:00 [facility] HIB 4 Dose Schedule 1998-05-20 Completed Unive rsity of 00:00:00 [facility] Hep B, Adol or Pedi 1998-05-20 Completed Unive rsity of Dosage 00:00:00 [facility] Branch DTAP 1998-05-20 Completed University of 00:00:00 [facility] Branch HIB 4 Dose Schedule 1998-05-20 Completed Unive rsity of 00:00:00 [place] [facility] Hep B, Adol or Pedi 1998-05-20 Completed Unive rsity of Dosage 00:00:00 [place] [facility] DTAP 1998-05-20 Completed University of 00:00:00 [place] [facility] HIB 4 Dose Schedule 1998-05-20 Completed Unive rsity of 00:00:00 [place] [facility] Hep B, Adol or Pedi 1998-05-20 Completed Unive rsity of Dosage 00:00:00 [place] [facility] DTAP 1998-05-20 Completed University of 00:00:00 [facility] Branch HIB 4 Dose Schedule 1998-05-20 Completed Unive rsity of 00:00:00 [place] [facility] Hep B, Adol or Pedi 1998-05-20 Completed Unive rsity of Dosage 00:00:00 [facility] Branch DTAP 1998-03-23 Completed University of 00:00:00 [facility] Branch HIB 4 Dose Schedule 1998-03-23 Completed Unive rsity of 00:00:00 [place] [facility] Hep B, Adol or Pedi 1998-03-23 Completed Unive rsity of Dosage 00:00:00 [facility] Branch Polio (IPV/OPV) 1998-03-23 Completed Universit y of 00:00:00 [facility] Branch DTAP 1998-03-23 Completed University of 00:00:00 [facility] HIB 4 Dose Schedule 1998-03-23 Completed Unive rsity of 00:00:00 [place] [facility] Hep B, Adol or Pedi 1998-03-23 Completed Unive rsity of Dosage 00:00:00 [facility] Branch Polio (IPV/OPV) 1998-03-23 Completed Universit y of 00:00:00 [facility] Branch DTAP 1998-03-23 Completed University of 00:00:00 [facility] Branch HIB 4 Dose Schedule 1998-03-23 Completed Unive rsity of 00:00:00 [place] [facility] Hep B, Adol or Pedi 1998-03-23 Completed Unive rsity of Dosage 00:00:00 [facility] Branch Polio (IPV/OPV) 1998-03-23 Completed Universit y of 00:00:00 [facility] DTAP 1998-03-23 Completed University of 00:00:00 [facility] HIB 4 Dose Schedule 1998-03-23 Completed Unive rsity of 00:00:00 [facility] Hep B, Adol or Pedi 1998-03-23 Completed Unive rsity of Dosage 00:00:00 [facility] Polio (IPV/OPV) 1998-03-23 Completed Universit y of 00:00:00 [facility] DTAP 1997 Completed University of 00:00:00 [facility] HIB 4 Dose Schedule 1997 Completed Unive rsity of 00:00:00 [facility] Hep B, Adol or Pedi 1997 Completed Unive rsity of Dosage 00:00:00 [facility] Polio (IPV/OPV) 1997 Completed Universit y of 00:00:00 [facility] DTAP 1997 Completed University of 00:00:00 [facility] HIB 4 Dose Schedule 1997 Completed Unive rsity of 00:00:00 [facility] Hep B, Adol or Pedi 1997 Completed Unive rsity of Dosage 00:00:00 [facility] Polio (IPV/OPV) 1997 Completed Universit y of 00:00:00 [facility] DTAP 1997 Completed University of 00:00:00 [facility] HIB 4 Dose Schedule 1997 Completed Unive rsity of 00:00:00 [facility] Hep B, Adol or Pedi 1997 Completed Unive rsity of Dosage 00:00:00 [facility] Polio (IPV/OPV) 1997 Completed Universit y of 00:00:00 [facility] DTAP 1997 Completed University of 00:00:00 [facility] HIB 4 Dose Schedule 1997 Completed Unive rsity of 00:00:00 [facility] Hep B, Adol or Pedi 1997 Completed Unive rsity of Dosage 00:00:00 [facility] Polio (IPV/OPV) 1997 Completed Universit y of 00:00:00 [facility] Vital Signs Vital Name Observation Time Observation Value Comments Source Systolic blood 2022-03-07 18:32:00 102 mm[Hg] Univer sity of pressure [facility] Diastolic blood 2022-03-07 18:32:00 70 mm[Hg] Unive rsity [facility] Heart rate 2022-03-07 18:32:00 63 /min [facility] Body temperature 2022-03-07 18:32:00 36.78 [facility] Respiratory rate 2022-03-07 18:32:00 18 /min [facility] Body height 2022-03-07 18:32:00 157.5 cm [facility] Body weight 2022-03-07 18:32:00 66.679 kg [facility] BMI 2022-03-07 18:32:00 26.89 kg/m2 [facility] Procedures Procedure Date / Time Performing Clinician Source Performed DME/SUPPLY JUSTIFICATION 2022-03-29 05:01:00 Doctor Devyn, No [facility] CONSENT FOR 2022-03-07 05:01:00 Doctor Unassbethany, No [facility] CONTRACEPTION [facility] POCT TEST 2022-03-07 00:00:00 Laron Mooney [facility] Encounters Start End Encounter Admission Attending Care Care Encounter Source Date/Time Date/Time Type Type Clinicians Facility Department ID 2022-03-29 2022-03-29 Telephone Laron Mooney [id number] Univers 00:00:00 00:00:00 Pietro EPPS [id number] i ty [facility] [id number] [id number] [place] NAL 134 Branch BUILDING 2022-03-29 2022-03-29 Orders Doctor LESLEE [id number] Univers 00:00:00 00:00:00 Only DEIRDRE Shepard [id number] ity of [facility] [id number] Danny as [phone] [place] [address] Branch 2022-03-07 2022-03-07 Office Laron Mooney [place] [id number] Univers 13:00:00 13:50:06 Visit Cam [place] [id number] i ty of [place] 4[place]2.686 [place] PROF[place] [id number] [place] [address] 2022-03-07 2022-03-07 Outpatient R LARON MOONEY [facility] [id number] Univers 13:00:00 13:50:06 ity of [facility] 2022-03-07 2022-03-07 Orders Doctor LESLEE [id number] Univers 00:00:00 00:00:00 Only Unassigned, EDIRDRE [id number] ity of [facility] [id number] Danny as [id number] [address] 2020-11-23 2020-11-23 Routine Laron Mooney [facility] [id number] 14:01:45 14:34:40 Cam [place] [id number] Visit [place] [id number] Professio [id number] [address] 2020-11-11 2020-11-11 Nurse Nurse, [facility] [id number] 10:47:22 11:08:04 Visit Women's Dustin 350.1.13.10 [facility] [id number] Professio [id number] [address] 2020-10-28 2020-10-29 Hospital Laron Mooney [facility] [id number] 05:30:00 22:30:00 Encounter Cam Dustin [id number] [place] 4.2.7.2.686 [place] [id number] 2020-10-27 2020-10-27 Laboratory Only, Dilan [facility] 1.2.840.114 [id number] 10:13:02 10:28:02 Only Test Dustin [id number] [place] 4.2.7.2.686 [place] [id number] 2020-10-21 2020-10-21 Routine Laron Mooney [facility] [id number] 14:52:05 16:19:18 Cam [place] [id number] Visit [place] 4.2.7.2.686 Professio [id number] [address] 2020-10-21 2020-10-21 Orders Doctor LESLEE 1.2.840.114 [id number] 00:00:00 00:00:00 Only Unassigned, DEIRDRE [id number] [place] [facility] 4.2.7.2.686 [id number] 2020-10-14 2020-10-14 Routine Laron Mooney [facility] [id number] 15:47:58 16:38:20 Cam Dustin 350.1.13.10 Visit [place] 4.2.7.2.686 Professio [id number] [address] 2020-10-14 2020-10-14 Furnace Combination Analyst 2, Adc Lab [facility] 1.2.840.114 [id number] 15:31:53 15:46:53 Visit Dustin 350.1.13.10 [place] 4.2.7.2.686 Professio [id number] [address] 2020-10-14 2020-10-14 Case Laron Mooney [facility] 1.2.899.686 [id number] 00:00:00 00:00:00 Management Cam Dust[place] [id number] [place] 4.2.7.2.686 Professio [id number] [address] 2020-10-11 2020-10-11 Telephone Laron Mooney [place] 1.2.840.114 [id number] 00:00:00 00:00:00 Cam Dust[place] 350.1.13.10 [place] 4.2.7.2.686 Professio [id number] [address] 2020-10-07 2020-10-07 Routine Laron Mooney [place] [id number] 08:18:49 09:18:03 Cam [place] 350.1.13.10 Visit [place] 4.2.7.2.686 Professio [id number] [address] 2020-10-06 2020-10-06 Telephone Laron Mooney [facility] 1.2.840.114 [id number] 00:00:00 00:00:00 Cam [place] 350.1.13.10 [place] 4.2.7.2.686 Professio [id number] [address] 2020-10-02 2020-10-02 Emergency Edgardo Recinos [facility] 1.2.840. [id number] 14:07:00 19:02:00 Laron Mooney 350.1.13.10 [place] 4.2.7.2.686 [place] [id number] 2020-09-22 2020-09-22 Routine Laron Mooney [facility] [id number] 15:22:19 15:43:16 Pietro Epps 350.1.13.10 Visit [place] 4.2.7.2.686 Professio [id number] [address] 2020-09-13 2020-09-13 Orders Doctor LESLEE 1.2.840.114 [id number] 00:00:00 00:00:00 Only Unassigned, DEIRDRE 350.1.13.10 [place] [facility] 4.2.7.2.686 [id number] 2020-09-08 2020-09-08 Routine Crisbeny [facility] 1.2.882.010 [id number] 10:04:39 10:19:39 Christel [place] 350.1.13.10 Visit [place] 4.2.7.2.686 Professio [id number] [address] 2020-09-04 2020-09-04 Outpatient Harms, [facility] [id number] [facility] 20:56:00 20:56:00 Mart 42 2020-09-01 2020-09-01 Case Laron Mooney [facility] [id number] 00:00:00 00:00:00 Management Pietro Epps 350.1.13.10 [place] 4.2.7.2.686 Professio [id number] [address] Results Test Description Test Time Test Comments Results Result Comments Source POCT TEST 2022-03-07 18:31:00 Test Item Value Reference Range Interpretation Comme nts POCT PREG (test code = 1605) Negative On board controls acceptable with C Line (test code = 3574) Yes POCT PREG LOT # (test code = 3575) POCT PREG TEST DATE (test code = 3576) [facility]
[2022-05-12] MEDS ORDERED: LORAZEPAM 0.5 MG TABLET ONE (20:41)
[2022-05-12] MEDS ORDERED: NA CHLORIDE 0.9% 1,000 ML ONE (21:27)
[2022-05-12 21:41] LABS: Absolute Lymphocytes (CBC) 2.3 K/uL (0.7-4.9); Hematocrit 41.3 % (36.0-45.0); Lymphocytes % 25.3 % (15.3-44.8); MCV 81.2 fL (80-100); RBC Red Blood Cell Count 5.09 M/uL (3.86-4.86)
--- NOTE | 2022-05-12 22:05 | RAD REPORT ---
EXAM DESCRIPTION: RAD - Chest Single View - 05/12/2022 9:43 pm CLINICAL HISTORY: CHEST PAIN COMPARISON: Two view chest 01/27/2020 TECHNIQUE: AP portable chest image was obtained 05/12/2022 9:43 pm . FINDINGS: Lungs are clear. Heart and vasculature are normal. No measurable pleural effusion and no p neumothorax. No acute bony abnormality seen. No acute aortic findings suspected. IMPRESSION: No acute cardiopulmonary process. No significant change from comparison study.
[2022-05-12 22:18] LABS: Potassium 2.7 mmol/L (3.5-5.1)
[2022-05-12] MEDS ORDERED: POTASSIUM CL SA 10 MEQ TAB PO ONE (22:48)
[2022-05-12] MEDS ORDERED: POTASSIUM 25 MEQ EFFERV TAB ONE (22:49)
[2022-05-12 22:52] LABS: Urine Blood Trace-intact (Negative); Urine Glucose Negative (Negative); Urine Protein Negative (Negative); Urine Specific Gravity 1.015 (1.005-1.030)
[2022-05-12 23:06] LABS: Urine Specific Gravity/Preg 1.015 (1.005-1.030)
--- NOTE | 2022-05-12 23:53 | ER ---
Nurse's Notes [facility] Name: Yesica Islas Age: 26 yrs Sex: Female : 1995 Arrival Date: 05/12/2022 Time: 20:20 Bed 12 Private MD: Diagnosis: Hypokalemia;Carpal Spasms Presentation: 05/12 20:25 Chief complaint: Patient states: "My whole body feels numb." Patient state that has tw5 been going on for years. Coronavirus screen: Vaccine status: Patient reports being unvaccinated. Ebola Screen: Patient negative for fever greater than or equal to 101.5 degrees Fahrenheit, and additional compatible Ebola Virus Disease symptoms Patient denies exposure to infectious person. Patient denies travel to an Ebola-affected area in the 21 days before illness onset. Initial Sepsis Screen: Does the patient meet any 2 criteria? HR > 90 bpm. Does the patient have a suspected source of infection? No. Patient's initial sepsis screen is negative. Risk Assessment: Do you want to hurt yourself or someone else? Patient reports no desire to harm self or others. Onset of symptoms is unknown. 20:25 Method Of Arrival: Ambulatory tw5 20:25 Acuity: KOFI 5 tw5 Triage Assessment: 20:27 General: Appears in no apparent distress. Behavior is anxious. Pain: Denies pain. tw5 THREAD SINGER: 20:27 LMP N/A - tw5 Historical: - Allergies: 20:27 No Known Allergies; tw5 - Home Meds: 20:27 None [Active]; tw5 - PSHx: 20:27 section; tw5 - Immunization history:: Flu vaccine is not up to date. - Social history:: Smoking status: Patient denies any tobacco usage or history of. Screenin:28 Abuse screen: Denies threats or abuse. Denies injuries from another. Nutritional tw5 screening: No deficits noted. Tuberculosis screening: No symptoms or risk factors identified. Fall Risk None identified. Assessment: 20:29 General: Behavior is anxious, restless. Neuro: No deficits noted. Level of tw5 Consciousness is awake, alert, obeys commands. 20:43 General: Reports " My hands are shaking so bad I cannot hold anything in them.". tw5 23:48 Reassessment: Patient states feeling better. Patient states symptoms have improved. tw5 Respiratory: Airway is patent Trachea midline Respiratory effort is even, unlabored. Vital Signs: 20:25 BP 154 / 94; Pulse 102; Resp 18; Temp 98.3; Pulse Ox 100% on R/A; Weight 61.23 kg; tw5 Height 5 ft. 2 in. (157.48 cm); Pain 0/10; 20:25 Body Mass Index 24.69 (61.23 kg, 157.48 cm) tw5 ED Course: 20:20 Patient arrived in ED. ja2 20:21 Eduar Aldana DO is Attending Physician. ms3 20:27 Triage completed. tw5 20:27 Arm band placed on right wrist. tw5 20:28 Patient has correct armband on for positive identification. tw5 20:29 Diet: Patient given water. tw5 20:43 Mira Dean is Primary Nurse. tw5 21:24 BMP Sent. tw5 21:24 CBC with Diff Sent. tw5 21:45 CXR XRAY In Process Unspecified. EDMS 22:54 Magnesium Sent. tw5 23:15 Urine --Ancillary (enter results) Sent. tw5 23:51 Chaitanya Oviedo DO is Referral Physician. ms3 05/13 00:07 No provider procedures requiring assistance completed. IV discontinued, intact, tw5 bleeding controlled, No redness/swelling at site. Pressure dressing applied. Administered Medications: 05/12 20:33 Drug: Ativan (LORazepam) 0.5 mg Route: PO; tw5 21:24 Follow up: Response: No adverse reaction tw5 21:24 Drug: NS 0.9% 1000 ml Route: IV; Rate: 1000 ml; Site: left antecubital; tw5 22:39 Follow up: Response: No adverse reaction; IV Status: Completed infusion; IV Intake: tw5 1000ml 22:51 Drug: Potassium Effervescent Tablet 50 mEq Route: PO; tw5 23:48 Follow up: Response: No adverse reaction tw5 22:51 Drug: Potassium Chloride 20 mEq Route: PO; tw5 23:48 Follow up: Response: No adverse reaction tw5 Medication: 05/13 00:07 VIS not applicable for this client. tw5 Intake: 05/12 22:39 IV: 1000ml; Total: 1000ml. tw5 Outcome: 23:52 Discharge ordered by MD. ms3 05/13 00:07 Discharged to home ambulatory, with family. tw5 Condition: improved Discharge instructions given to patient, Instructed on discharge instructions, follow up and referral plans. Demonstrated understanding of instructions, follow-up care. No charge visit due to 00:07 Patient left the ED. tw5 Signatures: Dispatcher [employer] EDEduar Gonzalez DO DO ms3 Indu Vides Tiffany tw5
--- NOTE | 2022-05-12 23:53 | EDPHYS ---
Physician Documentation [facility] Name: Yesica Islas Age: 26 yrs Sex: Female : 1995 Arrival Date: 05/12/2022 Time: 20:20 Bed 12 Private MD: ED Physician Eduar Aldana HPI: 05/12 21:27 This 26 yrs old Female presents to ER via Ambulatory with complaints of ms3 Numbness. 21:27 The patient's problem is reported as numbness and carpal spasms. Onset: The ms3 symptoms/episode began/occurred Years ago, occurring daily.. Context: Possible contributing factors include: Heavy breathing. The symptoms are alleviated by nothing. The symptoms are aggravated by nothing. Associated signs and symptoms: The patient has no apparent associated signs or symptoms. Severity of symptoms: At their worst the symptoms were moderate in the emergency department the symptoms are unchanged. Patient's baseline: Neuro: alert and fully oriented, Motor: no deficits, Ambulation: walks without assistance, Speech: normal. 26-year-old female with no past medical history presents for hand numbness and carpal spasms. Patient states this is been occurring for years and occurs daily. Patient states onset of her carpal spasms today began approximately 2 hours prior to arrival. Patient denies alleviating or inciting factors. Patient states her hand pain is a 9/10 and described as cramping. Patient states she did have heavy breathing that occurred prior to her hands becoming numb and cramping.. 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 - Social history:: Smoking status: Patient denies any tobacco usage or history of. ROS: 21:27 Constitutional: Negative for fever, and chills. Neck: Negative for injury, pain, and ms3 swelling, Cardiovascular: Negative for chest pain, and palpitations. Respiratory: Negative for shortness of breath, cough, wheezing, and pleuritic chest pain, Abdomen/GI: Negative for abdominal pain, nausea, vomiting, diarrhea, and constipation. 21:27 Skin: Negative for injury, rash, and discoloration, Allergy/Immunology: Negative for hives, rash, and allergies. 21:27 MS/extremity: Positive for spasms of her hands. 21:27 All other systems are negative. Exam: 21:25 ECG was reviewed by the Attending Physician. ms3 21:27 CT study not indicated or reported. Reason for not performing CT: Symptoms occurring ms3 daily for years. 21:27 Constitutional: This is a well developed, well nourished patient who is awake, alert, and in no acute distress. Head/Face: Normocephalic, atraumatic. Chest/axilla: Normal chest wall appearance and motion. Nontender with no deformity. Cardiovascular: Regular rate and rhythm with a normal S1 and S2. No gallops, murmurs, or rubs. Normal PMI, no JVD. No pulse deficits. Respiratory: Lungs have equal breath sounds bilaterally, clear to auscultation and percussion. No rales, rhonchi or wheezes noted. No increased work of breathing, no retractions or nasal flaring. Abdomen/GI: Soft, non-tender, with normal bowel sounds. No distension or tympany. No guarding or rebound. No evidence of tenderness throughout. 21:27 MS/ Extremity: Pulses equal, no cyanosis. Neurovascular intact. Full, normal range of motion. Psych: Awake, alert, with orientation to person, place and time. Behavior, mood, and affect are within normal limits. 21:27 Musculoskeletal/extremity: Bilateral carpal spasms. Vital Signs: 20:25 BP 154 / 94; Pulse 102; Resp 18; Temp 98.3; Pulse Ox 100% on R/A; Weight 61.23 kg; tw5 Height 5 ft. 2 in. (157.48 cm); Pain 0/10; 20:25 Body Mass Index 24.69 (61.23 kg, 157.48 cm) tw5 MDM: 20:53 Patient medically screened. ms3 21:27 Differential diagnosis: Anxiety vs electrolyte abnormality. ms3 05/13 04:59 Data reviewed: vital signs, nurses notes, lab test result(s), EKG, and as a result, I ms3 will discharge patient. Counseling: I had a detailed discussion with the patient and/or guardian regarding: the historical points, exam findings, and any diagnostic results supporting the discharge/admit diagnosis, lab results, the need for outpatient follow up, to return to the emergency department if symptoms worsen or persist or if there are any questions or concerns that arise at home. ED course: Patient's symptoms resolved at time of discharge. Patient to follow up with Dr Oviedo in 2-3 days. Patient understands agrees with plan. All questions were answered. Return precautions discussed include worsening symptoms, or any other concerns. Patient is alert and oriented x4, no apparent distress, nontoxic, ambulatory in the emergency department. 05/12 21:05 Order name: CBC with Diff; Complete Time: 22:14 ms3 05/12 21:05 Order name: BMP; Complete Time: 22:20 ms3 05/12 22:20 Order name: Magnesium; Complete Time: 23:42 ms3 05/12 22:52 Order name: Urine Dipstick-Ancillary; Complete Time: 23:42 EDMS 05/12 22:53 Order name: Urine --Ancillary (enter results) mw2 05/12 23:07 Order name: Urine --Ancillary; Complete Time: 23:42 EDMS 05/12 21:21 Order name: CXR XRAY; Complete Time: 22:14 ms3 05/12 21:21 Order name: EKG; Complete Time: 21:23 ms3 05/12 21:22 Order name: Urine Test (obtain specimen); Complete Time: 22:51 ms3 EC/12 21:25 Rate is 78 beats/min. Rhythm is regular. QRS [place] is Normal. Clinical impression: NSR ms3 w/ Non-specific ST/T Changes. Interpreted by me. Reviewed by me. Administered Medications: 20:33 Drug: Ativan (LORazepam) 0.5 mg Route: PO; tw5 21:24 Follow up: Response: No adverse reaction tw5 21:24 Drug: NS 0.9% 1000 ml Route: IV; Rate: 1000 ml; Site: left antecubital; tw5 22:39 Follow up: Response: No adverse reaction; IV Status: Completed infusion; IV Intake: tw5 1000ml 22:51 Drug: Potassium Effervescent Tablet 50 mEq Route: PO; tw5 23:48 Follow up: Response: No adverse reaction tw5 22:51 Drug: Potassium Chloride 20 mEq Route: PO; tw5 23:48 Follow up: Response: No adverse reaction tw5 Disposition Summary: 05/12/22 23:52 Discharge Ordered Location: Home ms3 Condition: Stable ms3 Diagnosis - Hypokalemia ms3 - Carpal Spasms ms3 Followup: ms3 - With: Chaitanya Oviedo DO - When: 2 - 3 days - Reason: Recheck today's complaints Discharge Instructions: - Discharge Summary Sheet ms3 - Potassium Content of Foods ms3 - Hypokalemia ms3 Forms: - Medication Reconciliation Form ms3 - Thank You Letter ms3 - Antibiotic Education ms3 - Prescription Opioid Use ms3 Signatures: Dispatcher [employer] EDEduar Gonzalez DO DO ms3 Mira Dean tw5
[2022-05-13 01:21] VITALS: BP 154/94; TEMP 98.3; O2SAT 100
--- NOTE | 2022-05-16 08:26 | EKG ---
Test Date: 2022-05-12 Test Time: 21:25:39 Manifest/Order Organizer Print Orders: LIZETTE MEASUREMENT RESULTS: Intervals: Rate: 78 [place]: 140 QRSD: 90 QT: 378 QTc: 430 [place]: P: 86 [place]: 140 QRS: 110 T: 80 INTERPRETIVE STATEMENTS: Sinus rhythm with premature atrial complexes Right axis deviation Pulmonary disease pattern Possible Right ventricular hypertrophy Nonspecific ST abnormality Abnormal ECG Compared to ECG 03/07/2021 18:06:27 Atrial premature complex(es) now present ST (T wave) deviation now present Sinus tachycardia no longer present Electronically Signed On 05-16-22 08:12:53 CDT by Mustapha Dior
== END 2022-05-13 00:07 | disposition home or self-care (01) ==
LOC: ER 20:18
DX: R25.2 Cramp and spasm (principal); E87.6 Hypokalemia
CPT/HCPCS: 93005; 85025; 80048; 36415; 83735; 81025; 81003; 71045; 96360; J7030

== ENCOUNTER 2022-08-17 01:46 | Emergency (ER) | payer OTHER ==
--- OUTSIDE RECORDS SUMMARY | 2022-08-17 01:51 | XMS REPORT | Continuity of Care Document ---
:1995 Author Organization [facility] t Address [facility] [place] [address] Care Team Providers Name Role Phone Tj Bravo Primary Care Physician LARON MOONEY Attending Clinician Unavailable Betzy CRAIG, Sendmike K.H. Attending Clinician PAVAN BO K.H. Attending Clinician Unavailable Doctor Unassigned, Theodosia Attending Clinician Unavailable JANAY BYRD Attending Clinician Unavailable Janay Byrd MD Attending Clinician Stephanie Ro MD Attending Clinician STEPHANIE RO Attending Clinician Unavailable Laron Mooney MD Attending Clinician Pob, [facility] Main Attending Clinician Unavailable Only, Adc Test Attending Clinician Unavailable Christel Ybarra PA-C Attending Clinician CHRISTEL YBARRA Attending Clinician Unavailable JENNIFER WELDON Attending Clinician Unavailable Jaswant Kirby Attending Clinician Jennifer Weldon MD Attending Clinician 2, [facility] Lab Attending Clinician Unavailable Ultrasound, Ang-Mfm Attending Clinician Unavailable Rudi CRAIG, Jennifer Daniel Attending Clinician JENNIFER INFANTE Attending Clinician Unavailable JENNIFER INFANTE Attending Clinician Unavailable Yamila Blum MD, Herbert Attending Clinician [phone] HERBERT COLBY Attending Clinician Unavailable Chepe RN, Lisa L Attending Clinician Unavailable Nurse, [facility] Attending Clinician Unavailable Keri CRAIG, Donell Attending Clinician Edgardo Recinos MD Attending Clinician Mart Steele Attending Clinician Unavailable Ultrasound, [facility] Attending Clinician Unavailable Phan CRAIG, Harry Hartley Attending Clinician JENNIFER WELDON Admitting Clinician Unavailable LARON MOONEY Admitting Clinician Unavailable PAVAN BO Admitting Clinician Unavailable Vinicio CRIAG, Laron [place] Admitting Clinician Jennifer Weldon MD Admitting Clinician STEPHANIE RO Admitting Clinician Unavailable Payers Payer Name Policy Type Policy Number Effective Date Expiration Date [facility] [id number] 2018 CHOICE MEDICAID 00:00:00 Problems Condition Condition Condition Status Onset Resolution Last Treating Co mments Source Name Details Category Date Date Treatment Clinician Date Liveborn Liveborn Disease Active Unive rs , of infant, of 1-28 it y [place] born in born in [facility] by by delivery delivery Obesity Obesity Disease Active 2019-10 Univers (BMI (BMI 1-25 ity of 30-39.9) 30-39.9) 00:00: [address] Previous Previous Disease Active Unive rs 9-30 ity of section section 00:00: [address] Allergies, Adverse Reactions, Alerts Allergy Allergy Status Severity Reaction(s) Onset Inactive Treating Comm ents Source Name Type Date Date Clinician No Known DA Active U 2019-10 [facility] Drug 2-05 Allergie 00:00: s 00 NO KNOWN Drug Active Univers ALLERGIE Class ity of S [facility] Social History Social Habit Start Date Stop Date Quantity Comments Source Exposure to 2022-05-15 2022-05-25 Not sure [facility] SARS-CoV-2 00:00:00 08:33:00 [place] [facility] (event[facility] Tobacco use and 2022-05-19 2022-05-19 Smokeless tobacco Un iversity of exposure 00:00:00 00:00:00 non-user [facility] Alcohol intake 2022-05-19 2022-05-19 0 /d [facility] 00:00:00 00:00:00 [facility] Sex Assigned At [birth year] Universit y of 00:00:00 00:00:00 [facility] Smoking Status Start Date Stop Date Source Never smoked tobacco [facility] Medications Ordered Filled Start Stop Current Ordering Indication Dosage Frequency Signature Comments Components Source Medication Medication Date Date Medication? Clinician (SIG) Name Name clindamycin 2021- No [id number] 150mg Take 1 Univers 150 mg 05-15 capsule by ity of capsule 00:00: 04:59 mouth 4 [place] 00 :00 (four) Medical times Branch daily for 5 days. clindamycin 2021- No [id number] 150mg Take 1 Univers 150 mg 8-15 05- capsule by ity of capsule 00:00: 04:59 mouth 4 [place] 00 :00 (four) Medical times Branch daily for 5 days. Yes [id number] 1{tbl} Take 1 Univers vitamin 5-03 tablet by ity of w/FA tablet 00:00: mouth [place] 00 daily. Medical Branch ferrous Yes [id number] 325mg Take 1 Un sowmya sulfate 325 5-03 tablet by ity of mg (65 mg 00:00: mouth 2 [place] iron) 00 (two) Medical tablet times Branch daily. Yes [id number] 1{tbl} Take 1 Univers vitamin 5-03 tablet by ity of w/FA tablet 00:00: mouth [place] 00 daily. Medical Branch ferrous Yes [id number] 325mg Take 1 Un sowmya sulfate 325 5-03 tablet by ity of mg (65 mg 00:00: mouth 2 [place] iron) 00 (two) Medical tablet times Branch daily. Yes [id number] 1{tbl} Take 1 Univers vitamin 5-03 tablet by ity of w/FA tablet 00:00: mouth [place] 00 daily. Medical Branch ferrous Yes [id number] 325mg Take 1 Un sowmya sulfate 325 5-03 tablet by ity of mg (65 mg 00:00: mouth 2 [place] iron) 00 (two) Medical tablet times Branch daily. Yes [id number] 1{tbl} Take 1 Univers vitamin 5-03 tablet by ity of w/FA tablet 00:00: mouth [place] 00 daily. Medical Branch ferrous Yes [id number] 325mg Take 1 Un sowmya sulfate 325 5-03 tablet by ity of mg (65 mg 00:00: mouth 2 [place] iron) 00 (two) Medical tablet times Branch daily. Yes [id number] 1{tbl} Take 1 Univers vitamin 5-03 tablet by ity of w/FA tablet 00:00: mouth [place] 00 daily. Medical Branch ferrous Yes [id number] 325mg Take 1 Un sowmya sulfate 325 5-03 tablet by ity of mg (65 mg 00:00: mouth 2 [place] iron) 00 (two) Medical tablet times Branch daily. Immunizations Ordered Immunization Filled Immunization Date Status Commen ts Source Name Name [facility] 2021-11-30 Completed University of 00:00:00 [facility] 2021-11-30 Completed University of 00:00:00 [facility] 2021-11-30 Completed University of 00:00:00 [facility] 2021-11-30 Completed University of 00:00:00 [facility] 2021-11-30 Completed University of 00:00:00 [facility] Influenza Virus 2021-08-19 Completed Universit y of [...] [place] Branch TDAP 2020-08-25 Completed University of 00:00: [facility] [place] [facility] TDAP 2020-08-25 Completed University of 00:00: [facility] [place] [facility] TDAP 2020-08-25 Completed University of 00:00:00 [facility] TDAP 2020-08-25 Completed University of 00:00:00 [facility] [place] [facility] TDAP 2020-08-25 Completed University of 00:00:00 [facility] Influenza Virus 2020-06-30 Completed Universit y of [...] Branch HPV 2012-02-08 Completed University of 00:00:00 [facility] [place] Branch HPV 2012-02-08 Completed University of 00:00:00 [facility] [place] [facility] HPV 2012-02-08 Completed University of 00:00:00 [facility] [place] Branch HPV 2012-02-08 Completed University of 00:00:00 [facility] [place] [facility] HPV 2012-02-08 Completed University of 00:00:00 [facility] [place] Branch HPV 2011-10-31 Completed University of 00:00:00 [facility] [place] Branch HPV 2011-10-31 Completed University of 00:00:00 [facility] [place] Branch HPV 2011-10-31 Completed University of 00:00:00 [facility] [place] [facility] HPV 2011-10-31 Completed University of 00:00:00 [facility] [place] [facility] HPV 2011-10-31 Completed University of 00:00:00 [facility] [place] [facility] HPV 2011-07-13 Completed University of 00:00:00 [facility] [place] [facility] HPV 2011-07-13 Completed University of 00:00:00 [facility] [place] [facility] HPV 2011-07-13 Completed University of 00:00:00 [facility] [place] [facility] HPV 2011-07-13 Completed University of 00:00:00 [facility] HPV 2011-07-13 Completed University of 00:00:00 [facility] Meningococcal 2010-12-28 Completed University of Polysaccharide 00:00:00 [place] [facility] [place] (groups A, C, Y and Branc h W-135) conjugate vaccine (MCV4P) TDAP 2010-12-28 Completed University of 00:00:00 [facility] Varicella 2010-12-28 Completed University of (varivax)(chicken 00:00:00 [place] [facility] pox) Branch Meningococcal 2010-12-28 Completed University of Polysaccharide 00:00:00 [place] [facility] [place] (groups A, C, Y and Branc h W-135) conjugate vaccine (MCV4P) TDAP 2010-12-28 Completed University of 00:00:00 [facility] Varicella 2010-12-28 Completed University of (varivax)(chicken 00:00:00 [place] [facility] pox) Branch Meningococcal 2010-12-28 Completed University of Polysaccharide 00:00:00 [place] [facility] [place] (groups A, C, Y and Branc h W-135) conjugate vaccine (MCV4P) TDAP 2010-12-28 Completed University of 00:00:00 [facility] Varicella 2010-12-28 Completed University of (varivax)(chicken 00:00:00 [place] [facility] pox) Branch Meningococcal 2010-12-28 Completed University of Polysaccharide 00:00:00 [place] [facility] [place] (groups A, C, Y and Branc h W-135) conjugate vaccine (MCV4P) TDAP 2010-12-28 Completed University of 00:00:00 [facility] Varicella 2010-12-28 Completed University of (varivax)(chicken 00:00:00 [place] [facility] pox) Branch Meningococcal 2010-12-28 Completed University of Polysaccharide 00:00:00 [place] [facility] [place] (groups A, C, Y and Branc h W-135) conjugate vaccine (MCV4P) TDAP 2010-12-28 Completed University of 00:00:00 [facility] Varicella 2010-12-28 Completed University of (varivax)(chicken 00:00:00 [place] [facility] pox) Branch DTAP 2002-06-30 Completed University of 00:00:00 [facility] MMR 2002-06-30 Completed University of 00:00:00 [facility] Polio (IPV/OPV) 2002-06-30 Completed Universit y of 00:00:00 [facility] DTAP 2002-06-30 Completed University of 00:00:00 [facility] MMR 2002-06-30 Completed University of 00:00:00 [facility] Polio (IPV/OPV) 2002-06-30 Completed Universit y of 00:00:00 [facility] DTAP 2002-06-30 Completed University of 00:00:00 [facility] MMR 2002-06-30 Completed University of 00:00:00 [facility] Polio (IPV/OPV) 2002-06-30 Completed Universit y of 00:00:00 [facility] DTAP 2002-06-30 Completed University of 00:00:00 [facility] MMR 2002-06-30 Completed University of 00:00:00 [facility] Polio (IPV/OPV) 2002-06-30 Completed Universit y of 00:00:00 [facility] DTAP 2002-06-30 Completed University of 00:00:00 [facility] MMR 2002-06-30 Completed University of 00:00:00 [facility] Polio (IPV/OPV) 2002-06-30 Completed Universit y of 00:00:00 [facility] HEPATITIS A 2001-01-17 Completed University of 00:00:00 [facility] Pneumococcal 7 2001-01-17 Completed University of Conjugate, PCV7 00:00:00 [place] [facility] [facility] (Prevnar7) [place] HEPATITIS A 2001-01-17 Completed University of 00:00:00 [facility] Pneumococcal 7 2001-01-17 Completed University of Conjugate, PCV7 00:00:00 [place] [facility] (Prevnar7) Branch HEPATITIS A 2001-01-17 Completed University of 00:00:00 [facility] Pneumococcal 7 2001-01-17 Completed University of Conjugate, PCV7 00:00:00 [place] [facility] (Prevnar7) Branch HEPATITIS A 2001-01-17 Completed University of 00:00:00 [facility] Pneumococcal 7 2001-01-17 Completed University of Conjugate, PCV7 00:00:00 [place] [facility] (Prevnar7) Branch HEPATITIS A 2001-01-17 Completed University of 00:00:00 [facility] Pneumococcal 7 2001-01-17 Completed University of Conjugate, PCV7 00:00:00 [place] [facility] (Prevnar7) Branch DTAP 1998-12-09 Completed University of 00:00:00 [facility] HIB 4 Dose Schedule 1998-12-09 Completed Unive rsity of 00:00:00 [facility] Polio (IPV/OPV) 1998-12-09 Completed Universit y of 00:00:00 [facility] DTAP 1998-12-09 Completed University of 00:00:00 [facility] HIB 4 Dose Schedule 1998-12-09 Completed Unive rsity of 00:00:00 [facility] Polio (IPV/OPV) 1998-12-09 Completed Universit y of 00:00:00 [facility] DTAP 1998-12-09 Completed University of 00:00:00 [facility] HIB 4 Dose Schedule 1998-12-09 Completed Unive rsity of 00:00:00 [facility] Polio (IPV/OPV) 1998-12-09 Completed Universit y of 00:00:00 [facility] DTAP 1998-12-09 Completed University of 00:00:00 [facility] HIB 4 Dose Schedule 1998-12-09 Completed Unive rsity of 00:00:00 [facility] Polio (IPV/OPV) 1998-12-09 Completed Universit y of 00:00:00 [facility] DTAP 1998-12-09 Completed University of 00:00:00 [facility] HIB 4 Dose Schedule 1998-12-09 Completed Unive rsity of 00:00:00 [facility] Polio (IPV/OPV) 1998-12-09 Completed Universit y of 00:00:00 [facility] MMR 1998-07-20 Completed University of 00:00:00 [facility] Polio (IPV/OPV) 1998-07-20 Completed Universit y of 00:00:00 [facility] Varicella 1998-07-20 Completed University of (varivax)(chicken 00:00:00 [place] [facility] pox) Branch MMR 1998-07-20 Completed University of 00:00:00 [facility] Polio (IPV/OPV) 1998-07-20 Completed Universit y of 00:00:00 [facility] Varicella 1998-07-20 Completed University of (varivax)(chicken 00:00:00 [place] [facility] pox) Branch MMR 1998-07-20 Completed University of 00:00:00 [facility] Polio (IPV/OPV) 1998-07-20 Completed Universit y of 00:00:00 [facility] Varicella 1998-07-20 Completed University of (varivax)(chicken 00:00:00 [place] [facility] pox) Branch MMR 1998-07-20 Completed University of 00:00:00 [facility] Polio (IPV/OPV) 1998-07-20 Completed Universit y of 00:00:00 [facility] Varicella 1998-07-20 Completed University of (varivax)(chicken 00:00:00 [place] [facility] pox) Branch MMR 1998-07-20 Completed University of 00:00:00 [facility] Polio (IPV/OPV) 1998-07-20 Completed Universit y of 00:00:00 [facility] Varicella 1998-07-20 Completed University of (varivax)(chicken 00:00:00 [place] [facility] pox) Branch DTAP 1998-05-20 Completed University of 00:00:00 [facility] HIB 4 Dose Schedule 1998-05-20 Completed Unive rsity of 00:00:00 [facility] Hep B, Adol or Pedi 1998-05-20 Completed Unive rsity of Dosage 00:00:00 [facility] DTAP 1998-05-20 Completed University of 00:00:00 [facility] HIB 4 Dose Schedule 1998-05-20 Completed Unive rsity of 00:00:00 [facility] Hep B, Adol or Pedi 1998-05-20 Completed Unive rsity of Dosage 00:00:00 [facility] DTAP 1998-05-20 Completed University of 00:00:00 [facility] HIB 4 Dose Schedule 1998-05-20 Completed Unive rsity of 00:00:00 [facility] Hep B, Adol or Pedi 1998-05-20 Completed Unive rsity of Dosage 00:00:00 [facility] DTAP 1998-05-20 Completed University of 00:00:00 [facility] HIB 4 Dose Schedule 1998-05-20 Completed Unive rsity of 00:00:00 [facility] Hep B, Adol or Pedi 1998-05-20 Completed Unive rsity of Dosage 00:00:00 [facility] DTAP 1998-05-20 Completed University of 00:00:00 [facility] HIB 4 Dose Schedule 1998-05-20 Completed Unive rsity of 00:00:00 [place] [facility] Hep B, Adol or Pedi 1998-05-20 Completed Unive rsity of Dosage 00:00:00 [facility] [place] [facility] DTAP 1998-03-23 Completed University of 00:00:00 [facility] [place] [facility] HIB 4 Dose Schedule 1998-03-23 Completed Unive rsity of 00:00:00 [place] [facility] Hep B, Adol or Pedi 1998-03-23 Completed Unive rsity of Dosage 00:00:00 [facility] Polio (IPV/OPV) 1998-03-23 Completed Universit y of 00:00:00 [facility] [place] [facility] DTAP 1998-03-23 Completed University of 00:00:00 [facility] HIB 4 Dose Schedule 1998-03-23 Completed Unive rsity of 00:00:00 [place] [facility] Hep B, Adol or Pedi 1998-03-23 Completed Unive rsity of Dosage 00:00:00 [facility] Polio (IPV/OPV) 1998-03-23 Completed Universit y of 00:00:00 [facility] DTAP 1998-03-23 Completed University of 00:00:00 [facility] HIB 4 Dose Schedule 1998-03-23 Completed Unive rsity of 00:00:00 [facility] [place] [facility] Hep B, Adol or Pedi 1998-03-23 Completed Unive rsity of Dosage 00:00:00 [facility] Polio (IPV/OPV) 1998-03-23 Completed Universit y of 00:00:00 [facility] [place] [facility] DTAP 1998-03-23 Completed University of 00:00:00 [facility] HIB 4 Dose Schedule 1998-03-23 Completed Unive rsity of 00:00:00 [place] [facility] Hep B, Adol or Pedi 1998-03-23 Completed Unive rsity of Dosage 00:00:00 [facility] [place] [facility] Polio (IPV/OPV) 1998-03-23 Completed Universit y of 00:00:00 [facility] [place] [facility] DTAP 1998-03-23 Completed University of 00:00:00 [facility] [place] [facility] HIB 4 Dose Schedule 1998-03-23 Completed Unive rsity of 00:00:00 [facility] [place] [facility] Hep B, Adol or Pedi 1998-03-23 Completed Unive rsity of Dosage 00:00:00 [facility] Polio (IPV/OPV) 1998-03-23 Completed Universit y of 00:00:00 [facility] DTAP 1997 Completed University of 00:00:00 [facility] HIB 4 Dose Schedule 1997 Completed Unive rsity of 00:00:00 [facility] Hep B, Adol or Pedi 1997 Completed Unive rsity of Dosage 00:00:00 [facility] Polio (IPV/OPV) 1997 Completed Universit y of 00:00:00 [facility] DTAP 1997 Completed University of 00:00:00 [facility] HIB 4 Dose Schedule 1997 Completed Unive rsity of 00:00:00 [facility] Hep B, Adol or Pedi 1997 Completed Unive rsity of Dosage 00:00:00 [facility] Polio (IPV/OPV) 1997 Completed Universit y of 00:00:00 [facility] DTAP 1997 Completed University of 00:00:00 [facility] HIB 4 Dose Schedule 1997 Completed Unive rsity of 00:00:00 [facility] Hep B, Adol or Pedi 1997 Completed Unive rsity of Dosage 00:00:00 [facility] Polio (IPV/OPV) 1997 Completed Universit y of 00:00:00 [facility] DTAP 1997 Completed University of 00:00:00 [facility] HIB 4 Dose Schedule 1997 Completed Unive rsity of 00:00:00 [facility] Hep B, Adol or Pedi 1997 Completed Unive rsity of Dosage 00:00:00 [facility] Polio (IPV/OPV) 1997 Completed Universit y of 00:00:00 [facility] DTAP 1997 Completed University of 00:00:00 [facility] HIB 4 Dose Schedule 1997 Completed Unive rsity of 00:00:00 [facility] Hep B, Adol or Pedi 1997 Completed Unive rsity of Dosage 00:00:00 [facility] Polio (IPV/OPV) 1997 Completed Universit y of 00:00:00 [facility] Vital Signs Vital Name Observation Time Observation Value Comments Source Systolic blood 2022-05-19 19:39:00 114 mm[Hg] Univer sity of pressure [facility] Diastolic blood 2022-05-19 19:39:00 74 mm[Hg] Unive rsity of pressure [facility] Heart rate 2022-05-19 19:39:00 70 /min [facility] Respiratory rate 2022-05-19 19:39:00 20 /min Univ ersity of [facility] Body height 2022-05-19 19:39:[address] [facility] Body weight 2022-05-19 19:39:[address] [facility] BMI 2022-05-19 19:39:00 25.15 kg/m2 [facility] Oxygen saturation in 2022-05-19 19:39:00 94 /min [facility] Arterial blood by [facility] Pulse oximetry Branch Procedures This patient has no known procedures. Encounters Start End Encounter Admission Attending Care Care Encounter Source Date/Time Date/Time Type Type Clinicians Facility Department ID 2021-12-31 Outpatient X [facility] DAGO [id number] Univers 00:18:56 ity of [facility] 2021-07-30 Outpatient P LARON MOONEY [facility] DAGO [id number] Univers 15:52:47 ity of [facility] 2021-07-[address] [facility] [id number] Univers 14:32:12 ity of [facility] 2021-07-[address] [facility] [id number] Univers 22:12:35 ity of [facility] 2022-06-14 2022-06-14 Telephone [facility] [id number] Univers 00:00:00 00:00:00 Pavan GUERRERO [id number] ity [id number] [phone] [address] 2022-06-01 2022-06-01 [facility]phone [facility] [id number] Univers 00:00:00 00:00:00 Pavan GURERERO [id number] [id number] [id number] Tn dical NAL 059 [facility] 2022-05-26 2022-05-26 Telephone Betzy [facility] [id number] Univers 00:00:00 00:00:00 Sendil Oscar [place] [id number] ity [facility] [id number] [id number] [facility] [address] [place] [address] 2022-05-25 2022-05-[address] [facility] [id number] Univers 08:30:00 23:59:00 SENDIL ity [facility] 2022-05-25 2022-05-[address] [facility] [id number] Univers 08:30:00 08:30:00 SENDIL ity [facility] 2022-05-19 2022-05-[address] [facility] [id number] Univers 13:00:00 23:59:00 [facility] 2022-05-19 [facility] [id number] Univers 15:00:00 15:30:00 Visit Sendmike GUERR[place] [id number] ity [facility] [id number] [phone] [address] 2022-05-19 2022-05-[address] [facility] [id number] Univers 15:00:00 15:00:00 SENDIL ity [facility] 2022-05-16 2022-05-16 Orders Doctor CAMILO [id number] Univers 00:00:00 00:00:00 Only Unassigned, DEIRDRE [id number] [facility] [id number] Danny as [phone] [address] 2022-05-15 2022-05-[address] [facility] [id number] Univers 13:20:00 13:33:23 JANAY ity [facility] 2022-05-15 2022-05-15 Urgent [facility] [id number] Univers 13:20:00 13:33:23 Care [facility] [id number] it y of [place] [id number] Danny as YARIEL?BLEA [id number] Tn dical KNEY [address] [place] MEDICAL OFFICE [facility] 2022-05-15 2022-05-15 Telephone Betzy [facility] [id number] Univers 00:00:00 00:00:00 Pavan [place] [id number] [id number] [id number] Tn dical NAL 059 [facility] 2022-05-14 2022-05-14 Emergency [facility] [id number] Univers 15:07:00 17:38:00 Stephanie [place] [id number] [id number] [id number] [facility] [address] [place] 2022-05-14 2022-05-14 Emergency X [facility] ERT [id number] Univers 15:07:00 17:38:00 STEPHANIE ity of [facility] 2022-05-14 2022-05-14 Case LESLEE Bo [id number] Univers 00:00:00 00:00:00 Management Pavan GILMORE [id number] ity of [facility] [id number] Danny as [id number] [facility] [address] [place] 2022-03-29 2022-03-29 Telephone Laron Mooney [facility] [id number] Univers 00:00:00 00:00:00 Pietro GUERRERO [id number] i ty [id number] [id number] Tn dical NAL 134 [facility] 2022-03-29 2022-03-29 Orders Doctor CAMILO [id number] Univers 00:00:00 00:00:00 Only Unassigned, DEIRDRE [id number] ity of [facility] [id number] Danny as [id number] [address] 2022-03-07 2022-03-07 Office Vinicio Laron [facility] [id number] Univers 13:00:00 13:50:06 Visit Cam [place] [id number] i ty [id number] [id number] Tn dical NAL [address] [place] [address] 2022-03-07 2022-03-07 Outpatient R VINICIO [facility] [id number] Univers 13:00:00 13:50:06 ity of [facility] 2022-03-07 2022-03-07 Outpatient R MOONEY [facility] [id number] Univers 13:00:00 13:00:00 ity of [facility] 2022-03-07 2022-03-07 Orders Doctor CAMILO [id number] Univers 00:00:00 00:00:00 Only Unassigned, DEIRDRE 350.1.13.10 ity of [facility] 4.2.7.2.686 Danny as [phone] [address] 2022-02-13 2022-02-13 Outpatient R MOONEY [facility] [id number] Univers 10:45:00 13:26:51 ity of [facility] 2022-02-13 2022-02-13 Routine Vinicio [facility] 1.2.677.105 [id number] Univers 10:45:00 13:26:51 Cam [place] 350.1.13.10 ity of [place] [phone] Tn dical NAL [address] [place] [address] 2022-01-30 2022-01-31 Inpatient P VINICIO [facility] DAGO [id number] Univers 05:46:00 17:00:00 ity of [facility] 2022-01-30 2022-01-31 Hospital Vinicio [facility] 1.2.840.114 [id number] Univers 05:46:00 17:00:00 Encounter Pietro GUERRERO 350.1.13.10 ity of [place] 4.2.7.2.686 [facility] [phone] [facility] [address] 2022-01-30 2022-01-30 Surgery Laron Mooney [facility] 1.2.553.609 [id number] [id number] Univers 08:00:00 09:29:00 Cam YOLANDA 350.1.13.10 i ty of [place] 4.2.7.2.686 [facility] [phone] [facility] [address] 2022-01-28 2022-01-28 Rvda Master Certified Rv Technician Emmanuel, Dilan Lab Main [facility] 1.2.8 40.114 [id number] Univers 11:15:00 11:30:00 Visit Laron Mooney Pietro GUERRERO 350.1.13.10 ity of [place] 4.2.7.2.686 [facility] PROFESSIO [phone] [facility] 353 [facility] 2022-01-28 2022-01-28 Outpatient R LARON MOONEY [facility] [id number] Univers 11:15:00 11:15:00 ity of [facility] 2022-01-28 2022-01-28 Laboratory Only, Adc Test [facility] 1.2.840. 114 [id number] Univers 11:00:00 11:15:00 Only Laron Mooney Pietro GUERRERO 350.1.13.10 ity of [place] 4.2.7.2.686 [facility] [phone] [facility] [address] 2022-01-28 2022-01-28 Orders Doctor LESLEE 1.2.840.114 [id number] Univers 00:00:00 00:00:00 Only Unassigned, DEIRDRE 350.1.13.10 ity of [facility] 4.2.7.2.686 Danny [phone] [facility] [address] 2022-01-25 2022-01-25 Routine Laron Mooney Pietro [facility] 1.2.840.114 [id number] Univers 15:30:00 15:45:00 Christel Ybarra 350.1.13.10 ity of [place] [phone] Tn dical [address] 2022-01-25 2022-01-[address] [facility] [id number] Univers 15:30:00 15:30:00 CHRISTEL ity [facility] 2022-01-18 2022-01-18 Outpatient R VINICIO [facility] [id number] Univers 13:00:00 13:36:58 ity of [facility] 2022-01-18 2022-01-18 [facility] 1.2.379.687 [id number] Univers 13:00:00 13:36:58 Cam [place] 350.1.13.10 ity of [place] [phone] [address] 2022-01-18 2022-01-18 Outpatient R VINICIO [facility] [id number] Univers 13:00:00 13:00:00 ity of [facility] 2022-01-11 2022-01-11 Outpatient R VINICIO [facility] [id number] Univers 14:00:00 14:54:05 ity [facility] 2022-01-11 2022-01-11 [facility] 1.2.257.962 [id number] Univers 14:00:00 14:54:05 Cam [place] 350.1.13.10 ity of [place] 4.2.7.2.[place] [id number] [address] 2022-01-11 2022-01-11 Orders Doctor LESLEE 1.2.840.114 [id number] Univers 00:00:00 00:00:00 Only Unassigned, DEIRDRE 350.1.13.10 ity of [facility] 4.2.7.2.686 Danny as [phone] [address] 2022-01-02 2022-01-[address] [facility] [id number] Univers 16:15:00 16:47:19 CHRISTEL ity [facility] 2022-01-02 2022-01-02 Routine Laron Mooney [facility] 1.2.840.114 [id number] Univers 16:15:00 16:47:19 Amada Christel GUERRERO 350.1.13.10 ity of [place] 4[place].7.2.686 [place] [phone] Tn dic[address] 2021-12-30 2021-12-30 Outpatient X RUTH, [facility] DAGO [id number] Univers 18:12:00 23:05:00 JENNIFER gill [facility] 2021-12-30 2021-12-30 Emergency [place] Christopheryomaira [facility] 1.2. 840.114 [id number] Univers 18:12:00 23:05:00 AdJennifer tolentino 350.1.13.10 ity of [place] [id number] [facility] [address] 2021-12-30 2021-12-30 Telephone Laron Mooney [facility] 1.2.840.114 [id number] Univers 00:00:00 00:00:00 Pietro GUERRERO 350.1.13.10 i ty of [place].7.2.[place] [phone] [address] 2021-12-30 2021-12-30 Orders Doctor CAMILO 1.2.840.114 [id number] Univers 00:00:00 00:00:00 Only Unassigned, DEIRDRE 350.1.13.10 ity of [facility] 4.2.7.2.686 Danny as [phone] [facility] [address] 2021-12-26 2021-12-[address] [facility] [id number] Univers 10:30:00 10:30:00 CHRISTEL gill [facility] 2021-12-12 2021-12-12 Outpatient R LARON [facility]ONEY [facility] [id number] Univers 13:15:00 15:26:50 ity of [facility] 2021-12-12 2021-12-12 Routine Laron Mooney [facility] 1.2.421.476 [id number] [id number] Univers 13:15:00 15:26:50 Cam [place] 350.1.13.10 ity of Visit [place] 4.2.7.2.686 [place] [phone] Tn dical NAL [address] [place] [address] 2021-12-12 2021-12-12 Routine Alexey Mooneyen [facility] 1.2.621.791 [id number] [id number] Univers 13:15:00 15:26:50 Cam [place] 350.1.13.10 ity of Visit [place] 4.[place].2.[place] [phone] Tn dical NAL [address] [place] [address] 2021-12-12 2021-12-12 Telephone Laron Mooney [facility] 1.2.840.114 [id number] Univers 00:00:00 00:00:00 Cam [place] 350.1.13.10 i ty of [place] 4[place].2.686 [place] [phone] Tn dical NAL [address] [place] [address] 2021-12-05 2021-12-05 Case Amada [facility] 1.2.037.477 [id number] [id number] Univers 00:00:00 00:00:00 Management Christel [place] 350.1.13.10 ity of [place] 4[place]2.7.2.[place] [phone] Tn dical NAL [address] [place] [address] 2021-11-30 2021-11-30 Outpatient R AMADA NYJOSEPH [facility] [id number] Univers 14:45:00 14:57:17 CHRISTEL ity of [facility] 2021-11-30 2021-11-30 Routine Amada [facility] 1.2.366.029 [id number] Univers 14:45:00 14:57:17 Christel [place] 350.1.13.10 ity of [place] 4.[place].2.686 [place] [phone] Tn dical NAL [address] [place] [address] 2021-11-13 2021-11-13 Case Mooney Laron [facility] 1.2.899.632 [id number] [id number] Univers 00:00:00 00:00:00 Management Cam [place] 350.1.13.10 ity of [place] 4[place].7.2.[place] [id number] Tn dical NAL 134 [facility] 2021-11-09 2021-11-09 Rvda Master Certified Rv Technician 2, Adc Lab [facility] 1.2.840.114 [id number] Univers 14:00:00 14:00:00 Visit Laron Mooney 350.1.13.10 ity of [place].7.2.[place] [id number] Tn dical NAL 353 [facility] 2021-11-09 2021-11-09 Outpatient R VINICIO [facility] [id number] Univers 13:00:00 13:53:41 ity of [facility] 2021-11-09 2021-11-09 Routine Vinicio [facility] 1.2.972.448 [id number] [id number] Univers 13:00:00 13:53:41 Pietro GUERRERO 350.1.13.10 ity of [place]2.[place] [phone] Tn dical NAL 134 [facility] 2021-10-24 2021-10-24 Rvda Master Certified Rv Technician Ultrasound, [facility] 1.2 .840.114 [id number] Univers 11:15:00 12:00:00 Visit Jennifer Infante DEVELOPMENTAL MATHEMATICS INSTRUCTOR 350.1.13.10 ity of [facility] 4.2.7.2.686 Danny as MATERNAL [phone] [facility] ical & CHILD [address] [place] [address] 2021-10-24 2021-10-24 Outpatient P JENNIFER INFANTE [facility] [id number] Univers 11:15:00 11:15:00 JENNIFER INFANTE ity [facility] 2021-10-14 2021-10-14 Outpatient R LARON [facility]ONEY [facility] [id number] Univers 11:30:00 12:37:28 ity of [facility] 2021-10-14 2021-10-14 Routine Vinicio [facility] NOGUERA 1.2.840.114 [id number] Univers 11:30:00 12:37:28 Pietro ROSALES 350.1.13.10 i ty of Visit W[place]7.2.[place] [id number] [address] 2021-09-19 2021-09-19 Case Jimreneebeny [facility] 1.2.042.269 [id number] [id number] Univers 00:00:00 00:00:00 Management Christel GUERRERO 350.1.13.10 ity of [place]2.[place] [phone] Tn dical [address] 2021-09-16 2021-09-16 Outpatient R LARON [facility]Y [facility] [id number] Univers 11:15:00 11:43:31 ity [facility] 2021-09-16 2021-09-16 Routine Vinicio [facility] NOGUERA 1.2.840.114 [id number] Univers 11:15:00 11:43:31 Cam ABIMAEL 350.1.13.10 i ty of Visit [place] 4[place]7.2.[place] [phone] [address] 2021-09-16 2021-09-16 Outpatient R LARON [facility]Y [facility] [id number] Univers 11:15:00 11:15:00 ity [facility] 2021-09-15 2021-09-[address] [facility] [id number] Univers 12:00:00 12:00:00 ity [facility] 2021-09-12 2021-09-12 Rvda Master Certified Rv Technician Ultrasound, [facility] 1.2 .840.114 [id number] Univers 12:23:27 13:23:27 Visit Herbert Colby DEVELOPMENTAL MATHEMATICS INSTRUCTOR 350.1. 13.10 ity of [facility] 4.2.7.2.686 Danny as MATERNAL [phone] Med ical & CHILD [address] [place] [address] 2021-09-12 2021-09-[address] [facility] [id number] Univers 12:30:00 12:30:00 LINSEY it y of SHER[place]ERT [facility] 2021-09-12 2021-09-[address] [facility] [id number] Univers 12:00:00 12:00:00 ity [facility] 2021-09-12 2021-09-[address] [facility] [id number] Univers 08:00:00 08:00:00 LINSEY it y of S GODINEZ [facility] 2021-09-07 2021-09-07 Telephone Laron Mooney [facility] 1.2.840.114 [id number] Univers 00:00:00 00:00:00 Pietro GUERRERO 350.1.13.10 i ty of [place] [id number] Tn dical NAL 134 [facility] 2021-08-24 2021-08-24 Rvda Master Certified Rv Technician 2, [facility] 1.2.840.114 [id number] Univers 13:07:21 15:23:43 Visit MooneyLaron Pietro GUERRERO 350.1.13.10 ity of [place].2.[place] [phone] Tn dical NAL 353 [facility] 2021-08-24 2021-08-[address] [facility] [id number] Univers 13:15:00 13:15:00 ity [facility] 2021-08-24 2021-08-[address] [facility] [id number] Univers 13:15:00 13:15:00 ity [facility] 2021-08-19 2021-08-19 Routine Laron Mooney [facility] NOGUERA 1.2.840.114 [id number] Univers 11:21:36 12:04:28 Pietro ROSALES 350.1.13.10 i ty of Visit [place] 4[place]2.7.2.[place] [id number] [address] 2021-08-19 2021-08-19 Out[address] R [address] [facility] [facility] [id number] Univers 10:15:00 12:04:28 ity of [facility] 2021-08-02 2021-08-02 Telephone [facility] 1.2.840.114 [id number] Univers 00:00:00 00:00:00 Pietro GUERRERO 350.1.13.10 i ty of [place] [phone] Me dical NAL 134 [facility] 2021-07-27 2021-07-27 [facility] 1.2.271.741 [id number] Univers 00:00:00 00:00:00 Management Christel Guerrero 350.1.13.10 ity of [place]2.[place] [phone] Me dical nal 134 [facility] 2021-07-26 2021-07-26 [facility] 1.2.840.114 [id number] Univers 11:20:43 11:54:36 Christel Rosales 350.1.13.10 i ty of Visit Women's 4.2.7.2.686 [place] [phone] [address] 2021-07-26 2021-07-26 [facility] [id number] Univers 11:15:00 11:15:00 [facility] 2021-07-25 2021-07-25 [facility] [id number] Univers 11:00:00 11:00:00 [facility] 2021-07-20 2021-07-[address] [facility] [id number] Univers 11:00:00 11:00:00 [facility] 2021-07-20 2021-07-20 Rvda Master Certified Rv Technician 2, Adc Lab [facility] 1.2.840.114 [id number] Univers 09:33:12 09:38:55 Visit Laron Mooney 350.1.13.10 ity of [place] [phone] Tn dical nal 353 [facility] 2021-07-20 2021-07-20 Outpatient R [address]ON [facility] [facility] [id number] Univers 09:30:00 09:30:00 ity [facility] 2021-07-20 2021-07-20 Orders Doctor CAMILO 1.2.840.114 [id number] Univers 00:00:00 00:00:00 Only Unassigned, DEIRDRE 350.1.13.10 ity of [facility] 4.2.7.2.686 Danny as [phone] [facility] [address] 2021-07-12 2021-07-12 Telephone Laron Mooney [facility] 1.2.840.114 [id number] Univers 00:00:00 00:00:00 Cam Yolanda 350.1.13.10 i ty of [place] [phone] [facility] 134 [facility] 2021-06-30 2021-06-30 Case Amada [facility] 1.2.485.980 [id number] Univers 00:00:00 00:00:00 Management Christel Guerrero 350.1.13.10 ity of [place].2.[place] [id number] Tn dicme nal [address] [place] [address] 2021-06-27 2021-06-27 Initial Laron Mooney [facility] 1.2.765.281 [id number] 7090 Univers 12:56:44 14:08:53 Pietro Guerrero 350.1.13.10 ity of [place]2.7.2.[place] [phone] Tn dic[address] 2021-06-27 2021-06-27 Outpatient R LARON [facility]Y [facility] [id number] Univers 14:00:00 14:00:00 ity of [facility] 2021-06-27 2021-06-27 Orders Doctor CAMILO 1.2.840.114 [id number] Univers 00:00:00 00:00:00 Only Unassigned, DEIRDRE 350.1.13.10 ity of [facility] 4.2.7.2.686 Danny as [phone] [facility] [address] 2021-06-17 2021-06-17 Telephone Chepe Mcmillan 1.2.840.114 [id number] Univers 00:00:00 00:00:00 , Lisa Vance 350.1.13.10 ity of [place].7.2.[place] [phone] [address] 2021-06-13 2021-06-13 Outpatient R LARON [facility]Y [facility] [id number] Univers 10:00:00 10:00:00 ity [facility] 2021-05-26 2021-05-26 Outpatient R LARON [facility] [id number] Univers 08:00:00 08:00:00 ity [facility] 2020-11-25 2020-11-25 Outpatient R LARON [facility] [id number] Univers 10:30:00 10:30:00 ity [facility] 2020-11-23 2020-11-23 Routine Laron Mooney [facility] 1.2.507.445 [id number] Univers 14:01:45 14:34:40 Cam [place] 350.1.13.10 ity of Visit [place] 4.2.7.2.686 [place] [phone] Tn dical [address] 2020-11-23 2020-11-23 Routine Laron Mooney [facility] 1.2.796.064 [id number] [id number] 14:01:45 14:34:40 Cam [place] 350.1.13.10 Visit [place] 4.2.7.2.686 Professio [id number] [address] 2020-11-23 2020-11-23 Outpatient R LARON [facility]Y [facility] [id number] Univers 14:15:00 14:15:00 ity [facility] 2020-11-11 2020-11-[address] [facility] [id number] Univers 14:00:00 14:00:00 ity [facility] 2020-11-11 2020-11-11 Outpatient R LARON [facility] [id number] Univers 11:15:00 11:15:00 ity [facility] 2020-11-11 2020-11-11 Nurse Nurse, [facility] 1.2.840.114 [id number] Univers 10:47:22 11:08:04 Visit Laron Mooney [place] 350.1.13.10 ity of [place] 4.2.7.2.686 [facility] Professio [phone] Tn dical [facility] 134 [facility] 2020-11-11 2020-11-11 Nurse Nurse, [facility] 1.2.840.114 [id number] 10:47:22 11:08:04 Visit Women's [place] 350.1.13.10 [facility] 4.2.7.2.686 Professio [id number] [address] 2020-10-28 2020-10-29 [facility] Laron Mooney [facility] 1.2.840.114 [id number] Univers 05:30:00 22:30:00 Encounter Cam [place] 350.1.13.10 ity of [place] 4.2.7.2.686 [facility] [place] [phone] [facility] [address] 2020-10-28 2020-10-29 [facility] Laron Mooney [facility] 1.2.840.114 [id number] 05:30:00 22:30:00 Encounter Cam [place] 350.1.13.10 [place] 4.2.7.2.686 [place] [id number] 083 2020-10-27 2020-10-27 Laboratory Only, [facility] Test [facility] 1.2.840. 114 [id number] Univers 10:13:02 10:28:02 Only Donell Saavedra [place] 350.1.13.10 ity of [place] 4.2.7.2.686 [facility] [place] [phone] [facility] [address] 2020-10-27 2020-10-27 Laboratory Only, [facility] 1.2.840.114 [id number] 10:13:02 10:28:02 Only Test [place] 350.1.13.10 [place] 4.2.7.2.686 [place] [id number] 353 2020-10-27 2020-10-[address] [facility] [id number] Univers 10:00:00 10:00:00 ity of [facility] 2020-10-21 2020-10-21 Routine Laron Mooney [facility] 1.2.777.041 [id number] Univers 14:52:05 16:19:18 Cam [place] 350.1.13.10 ity of Visit [place]2.7.2.[place] [phone] Me dical [address] 2020-10-21 2020-10-21 Routine Laron Mooney [facility] 1.2.661.039 [id number] 14:52:05 16:19:18 Cam [place] 350.1.13.10 Visit [place] 4.2.7.2.686 Professio [phone] [address] 2020-10-21 2020-10-21 Outpatient R [address]ARON [facility]Y [facility] [id number] [facility] [place] 14:45:00 14:45:00 ity of [facility] 2020-10-21 2020-10-21 Orders Doctor CAMILO 1.2.840.114 [id number] 00:00:00 00:00:00 Only Unassigned, DEIRDRE 350.1.13.10 [facility] [id number] [facility] 2020-10-21 2020-10-21 Orders Doctor LESLEE 1.2.840.[id number] [facility] 00:00:00 00:00:00 Only Unassigned, DEIRDRE 350.1.13.10 ity of [facility] 4.2.7.2.686 Danny as [phone] [address] 2020-10-14 2020-10-14 Routine Laron Mooney [facility] 1.2.688.563 [id number] 15:47:58 16:38:20 Cam [place] 350.1.13.10 Visit [place] 4.2.7.2.686 Professio [id number] [address] 2020-10-14 2020-10-14 Routine Laron Mooney [facility] 1.2.960.[id number] [facility] [place] 15:47:58 16:38:20 Cam [place] 350.1.13.10 ity of Visit [place]2.7.2.[place] [id number] Tn dical [address] 2020-10-14 2020-10-14 Rvda Master Certified Rv Technician 2, Adc Lab [facility] 1.2.840.114 [id number] 15:31:53 15:46:53 Visit [place] 350.1.13.10 [place] 4.2.7.2.686 Professio [phone] [address] 2020-10-14 2020-10-14 Rvda Master Certified Rv Technician 2, Adc Lab [facility] 1.2.840.[id number] [facility] [place] 15:31:53 15:46:53 Visit Laron Mooney Pietro [place] 350.1.13.10 ity of [place] 4[place]2.7.2.[place] [phone] Tn dical [address] 2020-10-14 2020-10-14 Outpatient R ALEXEY MOONEYEN [facility] [id number] [facility] 15:45:00 15:45:00 ity of [facility] 2020-10-14 2020-10-14 Case Laron Mooney [facility] 1.2.104.689 [id number] 00:00:00 00:00:00 Management Cam [place] 350.1.13.10 [place] 4.2.7.2.686 Professio [phone] [address] 2020-10-14 2020-10-14 Case Laron Mooney [facility] 1.2.502.[id number] [facility] 00:00:00 00:00:00 Management Cam [place] 350.1.13.10 ity of [place]2.7.2.[place] [id number] Tn dic[address] 2020-10-11 2020-10-11 Telephone Laron Mooney [facility] 1.2.840.114 [id number] 00:00:00 00:00:00 Cam [place] 350.1.13.10 [place] 4.2.7.2.686 Professio [id number] [address] 2020-10-11 2020-10-11 Telephone Laron Mooney [facility] 1.2.840.[id number] [facility] [place] 00:00:00 00:00:00 Cam [place] 350.1.13.10 i ty of [place] 4[place]2.7.2.[place] 413.9801398 Tn dic[address] 2020-10-07 2020-10-07 Routine Laron Mooney [facility] 1.2.889.257 [id number] [id number] 08:18:49 09:18:03 Cam [place] 350.1.13.10 Visit [place] 4.2.7.2.686 Professio [id number] [address] 2020-10-07 2020-10-07 Routine Laron Mooney [facility] 1.2.620.[id number] [facility] [place] 08:18:49 09:18:03 Cam [place] 350.1.13.10 ity of Visit [place] 4[place]2.7.2.[place] [phone] [address] 2020-10-07 2020-10-07 Outpatient R VINICIO LARON [facility] [id number] Univers 08:15:00 08:15:00 [facility] 2020-10-06 2020-10-[address] [facility] [id number] Univers 09:45:00 09:45:00 CHRISTEL ity [facility] 2020-10-06 2020-10-06 Telephone Laron Mooney [facility] 1.2.840.114 [id number] Univers 00:00:00 00:00:00 [place] [id number] [place] [phone] [address] 2020-10-06 2020-10-06 Telephone Laron Mooney [facility] 1.2.840.114 [id number] 00:00:00 00:00:00 Cam [place] 350.1.13.10 [place]osp[place] 4.2.7.2.686 Professio [phone] [address] 2020-10-02 2020-10-02 Emergency Edgardo Recinos [facility] 1.2.840. 114 [id number] Univers 14:07:00 19:02:00 Laron Mooney [place] 350.1.13.10 [place] [id number] [address] 2020-10-02 2020-10-02 Emergency Edgardo Recinos [facility] 1.2.840. 114 [id number] 14:07:00 19:02:00 Laron Mooney 350.1.13.10 [place] 4.2.7.2.686 [place] [phone] [facility] 2020-09-22 2020-09-22 Routine Laron Mooney [facility] [id number] [id number] Univers 15:22:19 15:43:16 Cam [place] 350.1.13.10 ity of [place] 4[place]2.[place] [phone] Tn dical [address] 2020-09-22 2020-09-22 Routine Laron Mooney [facility] 1.2.994.631 [id number] 15:22:19 15:43:16 Pietro Guerrero 350.1.13.10 Visit [place]ospers 4.2.7.2.686 Professio [phone] [address] 2020-09-22 2020-09-22 Outpatient R LARON MOONEY [facility] [id number] Univers 15:30:00 15:30:00 ity [facility] 2020-09-13 2020-09-13 Orders Doctor CAMILO 1.2.840.114 [id number] Univers 00:00:00 00:00:00 Only Unassigned, DEIRDRE 350.1.13.10 ity of [facility] 4.2.7.2.686 Danny as [phone] [address] 2020-09-13 2020-09-13 Orders Doctor CAMILO 1.2.840.114 [id number] 00:00:00 00:00:00 Only Unassigned, DEIRDRE 350.1.13.10 [facility] 4.2.7.2.686 [id number] 009 2020-09-08 2020-09-[address] [facility] [id number] Univers 16:30:00 16:30:00 CHRISTEL gill [facility] 2020-09-08 2020-09-08 Routine Amada [facility] 1.2.169.673 [id number] Univers 10:04:39 10:19:39 Christel [place] 350.1.13.10 ity [place] 4[place] [phone] [place] dic35 [place] [address] 2020-09-08 2020-09-08 Routine Amada [facility] [id number] 10:04:39 10:19:39 Christel [place] [id number] Visit [place] [id number] Professio [phone] [address] 2020-09-04 2020-09-04 Outpatient [place], [facility] [id number] [facility] 20:56:00 20:56:00 Mart 42 2020-09-03 2020-09-03 Orders Doctor LESLEE [id number] [id number] 00:00:00 00:00:00 Only Unassigned, DEIRDRE [id number] ity of [facility] 4.2.7.2.686 Danny as [phone] [address] 2020-09-01 2020-09-01 Case Laron Mooney [facility] [id number] Univers 00:00:00 00:00:00 Management Cam [place] [id number] [id number] [phone] Tn dic[address] 2020-09-01 2020-09-01 Case Laron Mooney [facility] [id number] 00:00:00 00:00:00 Management Cam [place] [id number] [place] [id number] Professio [phone] [address] 2020-08-25 2020-08-25 Routine Laron Mooney [facility] [id number] [facility] [place] [place] 09:47:40 10:28:07 Cam [place] [id number] ity of [id number] [phone] [address] 2020-08-25 2020-08-25 Outpatient R LARON [facility] [id number] Univers 09:45:00 09:45:00 ity of [facility] 2020-08-11 2020-08-[address] [facility] [id number] Univers 10:15:00 10:15:00 ity of [facility] 2020-08-11 2020-08-11 Rvda Master Certified Rv Technician 2, Adc Lab [facility] 1.2.840.114 [id number] Univers 09:10:01 09:25:01 Visit Laron Mooney [id number] [id number] [phone] Me dical nal 353 [facility] 2020-07-30 2020-07-30 Rvda Master Certified Rv Technician Ultrasound, [facility] 1.2 .840.114 [id number] Univers 14:09:41 15:09:41 Visit Harry Chisholm [id number] ity of [id number] [phone] Tn dical nal 134 [facility] 2020-07-30 2020-07-[address] [facility] [id number] Univers 14:00:00 14:00:00 ity of [facility] 2020-07-28 2020-07-28 Routine Vinicio Laron [facility] [id number] Univers 13:02:23 13:51:17 Pietro Guerrero [id number] ity of [id number] [phone] Tn dical nal 134 [facility] 2020-07-28 2020-07-28 Outpatient R LARON [facility] [id number] Univers 13:00:00 13:00:00 ity of [facility] 2020-07-28 2020-07-28 Letter Doctor CAMILO 1.2.840.114 [id number] Univers 00:00:00 00:00:00 (Out) Unassigned, DEIRDRE [id number] ity of [facility] [id number] Danny as [phone] [address] 2020-07-13 2020-07-13 Letter Laron Mooney [facility] [id number] Univers 00:00:00 00:00:00 (Out) Cam [place] [id number] i ty of [id number] [phone] [address] 2020-07-10 2020-07-10 Emergency [facility] [id number] Univers 06:03:00 06:42:00 Stephanie Guzman [place] [id number] ity of [place] [phone] [facility] [address] 2020-07-08 2020-07-08 Orders Doctor LESLEE 1.2.840.114 [id number] Univers 00:00:00 00:00:00 Only Unassigned, DEIRDRE [id number] ity of [facility] 4.2.7.2.686 Danny as [phone] [facility] [address] [place] 2020-07-01 2020-07-01 Telephone Laron Mooney [facility] 1.2.840.114 [id number] Univers 00:00:00 00:00:00 Cam [place] [id number] i ty of [place] [phone] [address] 2020-06-30 2020-06-30 Initial Laron Mooney [facility] [id number] Univers 14:52:17 16:18:50 Cam [place] [id number] ity of [place]2.[place] [phone] [address] 2020-06-30 2020-06-30 Outpatient R LARON [facility]Y [facility] [id number] Univers 14:30:00 14:30:00 ity of [facility] 2020-06-30 2020-06-30 Orders Doctor LESLEE 1.2.840.114 [id number] Univers 00:00:00 00:00:00 Only Unassigned, DEIRDRE [id number] ity of [facility] [id number] Danny as [phone] [facility] [address] 2020-06-21 2020-06-21 [facility] 1.2.840.114 [id number] Univers 02:25:00 03:35:00 Encounter Jennifer Guerrero [id number] bridget [facility] 4.2.7.2.686 [facility] [phone] [facility] [address] 2020-06-21 2020-06-21 Outpatient P [facility] [id number] Univers 02:25:00 02:25:00 JENNIFER gill [facility] 2019-10-11 2019-10-12 Emergency X [facility] ERT [id number] Univers 23:44:50 04:24:00 STEPHANIE gill [facility] Results This patient has no known results.
[2022-08-17 03:46] LABS: Absolute Lymphocytes (CBC) 1.6 K/uL (0.7-4.9); Hematocrit 40.2 % (36.0-45.0); Lymphocytes % 13.2 % (15.3-44.8); MCV 83.1 fL (80-100); MPV 9.5 fL (7.6-11.3); RBC Red Blood Cell Count 4.84 M/uL (3.86-4.86)
[2022-08-17 04:10] LABS: Bilirubin Total 0.3 mg/dL (0.2-1.0); Potassium 3.6 mmol/L (3.5-5.1); Protein, Total 8.2 g/dL (6.4-8.2); Thyroid Stimulating Hormone 1.66 uIU/mL (0.360-3.740); Troponin High Sensitivity 4.6 pg/mL (<58.9)
--- NOTE | 2022-08-17 04:33 | ER ---
Nurse's Notes [facility] Name: Yesica Islas Age: 27 yrs Sex: Female : 1995 Arrival Date: 08/17/2022 Time: 01:49 Bed 16 Private MD: Diagnosis: Paresthesia of skin;Palpitations Presentation: 08/17 04:16 Chief complaint: Patient states: pt states, i woke up to feeling my left upper chest aa9 twitch, it didn't hurt, i just felt twitching. Coronavirus screen: Vaccine status: Patient reports receiving the 2nd dose of the covid vaccine. Ebola Screen: No symptoms or risks identified at this time. Initial Sepsis Screen: Does the patient meet any 2 criteria? No. Patient's initial sepsis screen is negative. Does the patient have a suspected source of infection? No. Patient's initial sepsis screen is negative. Risk Assessment: Do you want to hurt yourself or someone else? Patient reports no desire to harm self or others. Onset of symptoms was August 17, 2022. 04:16 Method Of Arrival: Ambulatory aa9 04:16 Acuity: KOFI 3 aa9 Historical: - Allergies: 04:18 No Known Allergies; aa9 - PMHx: 04:18 Unable to Obtain; aa9 - PSHx: 04:18 section; aa9 - Immunization history:: Client reports receiving the 2nd dose of the Covid vaccine. - Social history:: Smoking status: unknown. Screenin:16 Abuse screen: Denies threats or abuse. Denies injuries from another. Nutritional aa9 screening: No deficits noted. Tuberculosis screening: No symptoms or risk factors identified. Fall Risk None identified. Assessment: 04:15 General: Appears comfortable, slender, Behavior is calm, cooperative, appropriate for aa9 age. Pain: Denies pain. Neuro: Level of Consciousness is awake, alert, obeys commands, Oriented to person, place, time, situation. Cardiovascular: Reports palpitations, Denies chest pain, shortness of breath, Patient's skin is warm and dry. Respiratory: Airway is patent Respiratory effort is even, unlabored. GI: No signs and/or symptoms were reported involving the gastrointestinal system. : No signs and/or symptoms were reported regarding the genitourinary system. EENT: No signs and/or symptoms were reported regarding the EENT system. Derm: Skin is intact, is healthy with good turgor. 05:07 Reassessment: Patient and/or family updated on plan of care and expected duration. Pain vc1 level reassessed. Patient is alert, oriented x 3, equal unlabored respirations, skin warm/dry/pink. Patient states symptoms have improved. Vital Signs: 02:25 BP 129 / 87; Pulse 116; Resp 20; Temp 97.9; Pulse Ox 100% ; Weight 58.97 kg; Height 5 kb ft. 2 in. (157.48 cm); Pain 0/10; 04:16 BP 112 / 74; Pulse 66; Resp 16 S; Temp 98.3(O); Pulse Ox 97% on R/A; Weight 65.77 kg aa9 (R); Height 5 ft. 2 in. (157.48 cm) (R); Pain 0/10; 04:16 Body Mass Index 26.52 (65.77 kg, 157.48 cm) aa9 ED Course: 01:49 Patient arrived in ED. bp1 02:32 Jeff Plaza MD is Attending Physician. rt 02:40 Yana Palomares, PIPO is Primary Nurse. aa9 03:33 XRAY Chest (1 view) In Process Unspecified. EDMS 03:45 Missed attempt(s): 22 gauge in left forearm. Bleeding controlled, band aid applied, aa9 catheter tip intact. 03:55 Inserted saline lock: 22 gauge in left antecubital area, using aseptic technique. Blood aa9 collected. 04:18 Triage completed. aa9 04:18 Arm band placed on. aa9 04:19 Patient has correct armband on for positive identification. Placed in gown. Bed in low aa9 position. Call light in reach. Side rails up X2. Client placed on continuous cardiac and pulse oximetry monitoring. NIBP monitoring applied. 05:06 No provider procedures requiring assistance completed. IV discontinued, intact, vc1 bleeding controlled, No redness/swelling at site. Pressure dressing applied. Administered Medications: No medications were administered Medication: 04:18 VIS not applicable for this client. aa9 Outcome: 04:33 Discharge ordered by . rt 05:06 Discharged to home ambulatory. vc1 05:06 Condition: good 05:06 Discharge instructions given to patient, Instructed on discharge instructions, follow up and referral plans. Demonstrated understanding of instructions, follow-up care. 05:07 Patient left the ED. vc1 Signatures: Dispatcher [employer] EDDebbie Darby, DUSTY BURTON-Sneha Weinstein Vanessa RN RN vc1 Yana Palomares RN RN aa9 Jeff Plaza MD MD rt
--- NOTE | 2022-08-17 04:33 | EDPHYS ---
Physician Documentation [facility] Name: Yesica Islas Age: 27 yrs Sex: Female : 1995 Arrival Date: 08/17/2022 Time: 01:49 Bed 16 Private MD: ED Physician Jeff Plaza HPI: 08/17 02:36 This 27 yrs old Female presents to ER via Unassigned with complaints of kb Numbness Of Arm, Heart feels "jerky". 02:37 The patient presents with a history of heart racing. Context: The symptoms occur during kb sleep. Onset: The symptoms/episode began/occurred 1 hour(s) ago. Duration: The patient or guardian reports a single episode. Modifying factors: The symptoms are aggravated by nothing. The symptoms are alleviated by nothing. Associated signs and symptoms: Pertinent positives: SOB. Severity of symptoms: At their worst the symptoms were moderate in the emergency department the symptoms have resolved. The patient has experienced similar episodes in the past. The patient has not recently seen a physician. Pt reports she was awoken by palpitations then a rapid heart rate, numbness to bilateral hands, cramping to bilateral hands and tightness to jaw. States this lasted about an hour and now has resolved. This has happened multiple times over the last year and a half. Pt wore a holter monitor 2 months ago due to these symptoms, but no abnormality was captured. . Historical: - Allergies: 04:18 No Known Allergies; aa9 - PMHx: 04:18 Unable to Obtain; aa9 - PSHx: 04:18 section; aa9 - Immunization history:: Client reports receiving the 2nd dose of the Covid vaccine. - Social history:: Smoking status: unknown. ROS: 02:36 Constitutional: Negative for fever, chills, and weight loss. kb 02:36 Cardiovascular: Positive for palpitations. 02:36 Respiratory: Positive for shortness of breath. 02:36 All other systems are negative. Exam: 02:25 Constitutional: This is a well developed, well nourished patient who is awake, alert, kb and in no acute distress. Head/Face: Normocephalic, atraumatic. ENT: Moist Mucous membranes Cardiovascular: Regular rate and rhythm with a normal S1 and S2. No gallops, murmurs, or rubs. No pulse deficits. Respiratory: Respirations even and unlabored. No increased work of breathing. Talking in full sentences Abdomen/GI: Soft, non-tender. No distention Skin: Warm, dry with normal turgor. Normal color. MS/ Extremity: Pulses equal, no cyanosis. Neurovascular intact. Full, normal range of motion. Neuro: Awake and alert, GCS 15, oriented to person, place, time, and situation. Moves all extremities. Normal gait. Psych: Awake, alert, with orientation to person, place and time. Behavior, mood, and affect are within normal limits. 03:38 ECG was reviewed by the Attending Physician. rt Vital Signs: 02:25 BP 129 / 87; Pulse 116; Resp 20; Temp 97.9; Pulse Ox 100% ; Weight 58.97 kg; Height 5 kb ft. 2 in. (157.48 cm); Pain 0/10; 04:16 BP 112 / 74; Pulse 66; Resp 16 S; Temp 98.3(O); Pulse Ox 97% on R/A; Weight 65.77 kg aa9 (R); Height 5 ft. 2 in. (157.48 cm) (R); Pain 0/10; 04:16 Body Mass Index 26.52 (65.77 kg, 157.48 cm) aa9 MDM: 02:36 Patient medically screened. kb 02:36 Data reviewed: vital signs, nurses notes. Data interpreted: Pulse oximetry: on room air kb is 100 %. Interpretation: normal. 08/17 02:30 Order name: CBC with Diff; Complete Time: 04:23 kb 08/17 02:30 Order name: Troponin HS; Complete Time: 04:23 kb 08/17 02:30 Order name: XRAY Chest (1 view) kb 08/17 02:30 Order name: EKG; Complete Time: 02:30 kb 08/17 02:30 Order name: CMP; Complete Time: 04:23 kb 08/17 02:30 Order name: TSH; Complete Time: 04:23 kb 08/17 02:30 Order name: Cardiac monitoring; Complete Time: 04:15 kb 08/17 02:30 Order name: EKG - Nurse/Tech; Complete Time: 04:15 kb 08/17 02:30 Order name: IV Saline Lock; Complete Time: 04:15 kb 08/17 02:30 Order name: Labs collected and sent; Complete Time: 04:15 kb 08/17 02:30 Order name: O2 Per Protocol; Complete Time: 04:15 kb 08/17 02:30 Order name: O2 Sat Monitoring; Complete Time: 04:15 kb EC:38 Rate is 91 beats/min. Rhythm is regular, Normal Sinus Rhythm. Right axis deviation rt noted. AK interval is normal. QRS interval is normal. QT interval is normal. No Q waves. T waves are Inverted in leads aVR, V1. No ST changes noted. Administered Medications: No medications were administered Disposition: 04:34 Co-signature as Attending Physician, Jeff Plaza MD Attestation: The patient's rt history, exam findings, diagnostics, and a summary of any interventions or procedures was reviewed in detail with Yana Palomares RN Patient presents to the ED with worsening of her paresthesias, palpitations that have been present, she has had a Holter monitor work-up, this was negative. The patient has unremarkable EKG, benign labs, lecture lites, TSH are normal. Patient is stable for outpatient care. Symptoms have resolved without treatment in the ED, return precautions were discussed.. Disposition Summary: 08/17/22 04:33 Discharge Ordered Location: Home rt Problem: an ongoing problem rt Symptoms: have improved rt Condition: Stable rt Diagnosis - Paresthesia of skin rt - Palpitations rt Followup: rt - With: Private Physician - When: 2 - 3 days - Reason: Discharge Instructions: - Discharge Summary Sheet rt - Palpitations rt - Paresthesia rt Forms: - Medication Reconciliation Form rt - Thank You Letter rt - Antibiotic Education rt - Prescription Opioid Use rt Signatures: Dispatcher [employer] Debbie Lane, JOSEPHINE-C JOSEPHINE-Yana Vergara, RN RN aa9 Jeff Plaza MD MD rt
[2022-08-17 05:41] VITALS: BP 112/74; TEMP 98.3; O2SAT 97
--- NOTE | 2022-08-17 15:12 | RAD REPORT ---
EXAM DESCRIPTION: XR Chest, 1 View CLINICAL HISTORY: The patient is 27 years old and is Female; PALPITATIONS TECHNIQUE: Frontal view of the chest. COMPARISON: No relevant prior studies available. FINDINGS: Lungs: Unremarkable. No consolidation. Pleural space: Unremarkable. No pneumothorax. Heart: Unremarkable. Mediastinum: Unremarkable. Bones/joints: Unremarkable. IMPRESSION: No acute findings in the chest. Electronically signed by: Donell Alvarado MD 08/17/2022 3:40 AM AUDITING CLERK Due to temporary technical issues with the PACS/Fluency reporting system, reports are being signed by the in house radiologists without review as a courtesy to insure prompt reporting. The interpreting radiologist is fully responsible for the content of the report.
--- NOTE | 2022-08-19 19:19 | EKG ---
Test Date: 2022-08-17 Test Time: 03:20:40 Negative Checker: TRISH MEASUREMENT RESULTS: Intervals: Rate: 91 NV: 130 QRSD: 92 QT: 362 QTc: 445 [place]: P: 79 NV: 130 QRS: 164 T: 58 INTERPRETIVE STATEMENTS: Normal sinus rhythm with sinus arrhythmia Right axis deviation Possible Right ventricular hypertrophy Abnormal ECG Compared to ECG 05/12/2022 21:25:39 Atrial premature complex(es) no longer present ST (T wave) deviation no longer present Electronically Signed On 08-19-22 19:11:12 SEMIAUTOMATIC TAPER OPERATOR by Mustapha Dior
== END 2022-08-17 05:07 | disposition home or self-care (01) ==
LOC: ER 01:46
DX: R00.2 Palpitations (principal); R20.2 Paresthesia of skin
CPT/HCPCS: 36415; 71045; 80053; 84443; 84484; 85025; 93005; 99283

== ENCOUNTER 2022-09-06 19:16 | Emergency (ER) | payer OTHER ==
--- OUTSIDE RECORDS SUMMARY | 2022-09-06 19:21 | XMS REPORT | Continuity of Care Document ---
:1995 Author Organization [facility] t Address [facility] [place] [address] Care Team Providers Name Role Phone OREN LOWRY Primary Care Physician Unavailable LARON MOONEY Attending Clinician Unavailable Betzy CRAIG, Pavan K.HLiana Attending Clinician PAVAN BOHLiana Attending Clinician Unavailable Doctor Unassigned, [place] Attending Clinician Unavailable JANAY BYRD Attending Clinician [...] Clinician Unavailable Ultrasound, [facility] Attending Clinician Unavailable Jennifer Infante MD Attending Clinician JENNIFER INFANTE Attending Clinician Unavailable JENNIFER INFANTE Attending Clinician Unavailable Yamila Blum MD, Herbert Attending Clinician [phone] HERBERT COLBY Attending Clinician Unavailable Chepe FOSS, Lisa Parikh Attending Clinician Unavailable Nurse, [facility] Attending Clinician Unavailable Donell Saavedra MD Attending Clinician Edgardo Recinos MD Attending Clinician Mart Steele Attending Clinician Unavailable Ultrasound, [facility] Attending Clinician Unavailable Phan CRAIG, Harry Hartley Attending Clinician JENNIFER WELDON Admitting Clinician Unavailable LARON MOONEY Admitting Clinician Unavailable PAVAN BO Admitting Clinician Unavailable Laron Mooney MD Admitting Clinician Jennifer Weldon MD Admitting Clinician STEPHANIE RO Admitting Clinician Unavailable Payers Payer Name Policy Type Policy Number Effective Date Expiration Date [facility] [id number] 2018 CHOICE MEDICAID 00:00:00 Problems Condition Condition Condition Status Onset Resolution Last Treating Co mments Source Name Details Category Date Date Treatment Clinician Date Liveborn Liveborn Disease Active Unive rs , of , of 1-28 [place] born [place] born in [facility] by by delivery delivery Obesity Obesity Disease Active 2019-10 Univers (BMI (BMI 1-25 ity of 30-39.9) 30-39.9) 00:00: [address] Previous Previous Disease Active Unive rs 9-30 ity of section section 00:00: [address] Allergies, Adverse Reactions, Alerts Allergy Allergy Status Severity Reaction(s) Onset Inactive Treating Comm ents Source Name Type Date Date Clinician No Known DA Active U 2019-10 [facility] Drug 2-05 Allergie 00:00: 00 NO KNOWN Drug Active Univers ALLERGIE Class ity of S [facility] Social History Social Habit Start Date Stop Date Quantity Comments Source Exposure to 2022-05-15 2022-05-25 Not sure [facility] SARS-CoV-2 00:00:00 08:33:00 [facility] (event) Angie Tobacco use and 2022-05-19 2022-05-19 Smokeless tobacco Un iversity of exposure 00:00:00 00:00:00 non-user [facility] Alcohol intake 2022-05-19 2022-05-19 0 /d [facility] 00:00:00 00:00:00 [facility] Sex Assigned At [birth year] Universit y of 00:00:00 00:00:00 [facility] Smoking Status Start Date Stop Date Source Never smoked tobacco [facility] Medications Ordered Filled Start Stop Current Ordering Indication Dosage Frequency Signature Comments Components Source Medication Medication Date Date Medication? Clinician (SIG) Name Name clindamycin 2021- No [id number] 150mg Take 1 Univers 150 mg 8-15 05- capsule by ity of capsule 00:00: 04:59 mouth 4 [place] 00 :00 (four) Medical times Branch daily for 5 days. clindamycin 2021- No [id number] 150mg Take 1 Univers 150 mg 8-15 05- capsule by ity of capsule 00:00: 04:59 mouth 4 [place] 00 :00 (four) Medical times Branch daily for 5 days. Yes [id number] 1{tbl} Take 1 Univers vitamin 5-03 tablet by ity of w/FA tablet 00:00: mouth [place] 00 daily. Medical Branch ferrous Yes [id number] 325mg Take 1 Un sowmya sulfate 325 5-03 tablet by ity of mg (65 mg 00:00: mouth 2 [place] iron) 00 (two) Medical tablet times Branch daily. Yes [id number] 1{tbl} Take 1 Univers vitamin 5-03 tablet by ity of w/FA tablet 00:00: mouth [place] 00 daily. Medical Branch ferrous Yes [id number] 325mg Take 1 Un sowmya sulfate 325 5-03 tablet by ity of mg (65 mg 00:00: mouth 2 [place] iron) 00 (two) Medical tablet times Branch daily. Yes [id number] 1{tbl} Take 1 Univers vitamin 5-03 tablet by ity of w/FA tablet 00:00: mouth [place] 00 daily. Medical Branch ferrous Yes [id number] 325mg Take 1 Un sowmya sulfate 325 5-03 tablet by ity of mg (65 mg 00:00: mouth 2 [place] iron) 00 (two) Medical tablet times Branch daily. Yes [id number] 1{tbl} Take 1 Univers vitamin 5-03 tablet by ity of w/FA tablet 00:00: mouth [place] 00 daily. Medical Branch ferrous Yes [id number] 325mg Take 1 Un sowmya sulfate 325 5-03 tablet by ity of mg (65 mg 00:00: mouth 2 [place] iron) 00 (two) Medical tablet times Branch daily. Yes [id number] 1{tbl} Take 1 Univers vitamin 5-03 tablet by ity of w/FA tablet 00:00: mouth [place] 00 daily. Medical Branch ferrous Yes [id number] 325mg Take 1 Un sowmya sulfate 325 5-03 tablet by ity of mg (65 mg 00:00: mouth 2 [place] iron) 00 (two) Medical tablet times Branch daily. Immunizations Ordered Immunization Filled Immunization Date Status Commen ts Source Name Name [facility] 2021-11-30 Completed University of 00:00:00 [facility] 2021-11-30 Completed University of 00:00:00 [facility] 2021-11-30 Completed University of 00:00:00 [facility] 2021-11-30 Completed University of 00:00:00 [facility] 2021-11-30 Completed University of 00:00:00 [facility] Influenza Virus 2021-08-19 Completed Universit [...] Branch TDAP 2020-08-25 Completed University of 00:00: [place] [facility] TDAP 2020-08-25 Completed University of 00:00:00 [place] [facility] TDAP 2020-08-25 Completed University of 00:00:00 [facility] Branch TDAP 2020-08-25 Completed University of 00:00:00 [facility] Branch TDAP 2020-08-25 Completed University of 00:00:00 [facility] Branch Influenza Virus 2020-06-30 Completed Universit y [...] Branch HPV 2012-02-08 Completed University of 00:00:00 [facility] Branch HPV 2012-02-08 Completed University of 00:00:00 [place] [facility] HPV 2012-02-08 Completed University of 00:00:00 [place] [facility] HPV 2012-02-08 Completed University of 00:00:00 [place] [facility] HPV 2012-02-08 Completed University of 00:00:00 [place] [facility] HPV 2011-10-31 Completed University of 00:00:00 [place] [facility] HPV 2011-10-31 Completed University of 00:00:00 [place] [facility] HPV 2011-10-31 Completed University of 00:00:00 [place] [facility] HPV 2011-10-31 Completed University of 00:00:00 [place] [facility] HPV 2011-10-31 Completed University of 00:00:00 [place] [facility] HPV 2011-07-13 Completed University of 00:00:00 [place] [facility] HPV 2011-07-13 Completed University of 00:00:00 [place] [facility] HPV 2011-07-13 Completed University of 00:00:00 [place] [facility] HPV 2011-07-13 Completed University of 00:00:00 [facility] Branch HPV 2011-07-13 Completed University of 00:00:00 [facility] Meningococcal 2010-12-28 Completed University of Polysaccharide 00:00:00 [place] Medi raymond (groups A, C, Y and Branc h W-135) conjugate vaccine (MCV4P) TDAP 2010-12-28 Completed University of 00:00:00 [facility] Varicella 2010-12-28 Completed University of (varivax)(chicken 00:00:00 [place] M edical pox) Branch Meningococcal 2010-12-28 Completed University of Polysaccharide 00:00:00 [place] [facility] [place] (groups A, C, Y and Branc h W-135) conjugate vaccine (MCV4P) TDAP 2010-12-28 Completed University of 00:00:00 [facility] Varicella 2010-12-28 Completed University of (varivax)(chicken 00:00:00 [place] M [place]ical pox) Branch Meningococcal 2010-12-28 Completed University of Polysaccharide 00:00:00 [place] [facility] [place] (groups A, C, Y and Branc h W-135) conjugate vaccine (MCV4P) TDAP 2010-12-28 Completed University of 00:00:00 [facility] Varicella 2010-12-28 Completed University of (varivax)(chicken 00:00:00 [place] M edical pox) Branch Meningococcal 2010-12-28 Completed University of Polysaccharide 00:00:00 [place] [facility] [facility] (groups A, C, Y and Branc h W-135) conjugate vaccine (MCV4P) TDAP 2010-12-28 Completed University of 00:00:00 [facility] Varicella 2010-12-28 Completed University of (varivax)(chicken 00:00:00 [place] M edical pox) Branch Meningococcal 2010-12-28 Completed University of Polysaccharide 00:00:00 [place] [facility] raymond (groups A, C, Y and Branc h W-135) conjugate vaccine (MCV4P) TDAP 2010-12-28 Completed University of 00:00:00 [facility] Varicella 2010-12-28 Completed University of (varivax)(chicken 00:00:00 [place] M edical pox) Branch DTAP 2002-06-30 Completed University of 00:00:00 [facility] MMR 2002-06-30 Completed University of 00:00:00 [facility] Polio (IPV/OPV) 2002-06-30 Completed Universit y of 00:00:00 [facility] DTAP 2002-06-30 Completed University of 00:00:00 [facility] MMR 2002-06-30 Completed University of 00:00:00 [facility] Polio (IPV/OPV) 2002-06-30 Completed Universit y of 00:00:00 [facility] DTAP 2002-06-30 Completed University of 00:00:00 [facility] MMR 2002-06-30 Completed University of 00:00:00 [facility] Polio (IPV/OPV) 2002-06-30 Completed Universit y of 00:00:00 [facility] DTAP 2002-06-30 Completed University of 00:00:00 [facility] MMR 2002-06-30 Completed University of 00:00:00 [facility] Polio (IPV/OPV) 2002-06-30 Completed Universit y of 00:00:00 [facility] DTAP 2002-06-30 Completed University of 00:00:00 [facility] MMR 2002-06-30 Completed University of 00:00:00 [facility] Polio (IPV/OPV) 2002-06-30 Completed Universit y of 00:00:00 [facility] HEPATITIS A 2001-01-17 Completed University of 00:00:00 [facility] Pneumococcal 7 2001-01-17 Completed University of Conjugate, PCV7 00:00:00 [place] [facility] ical (Prevnar7) Angie HEPATITIS A 2001-01-17 Completed University of 00:00:00 [facility] Pneumococcal 7 2001-01-17 Completed University of Conjugate, PCV7 00:00:00 [place] [facility] (Prevnar7) [place] HEPATITIS A 2001-01-17 Completed University of 00:00:00 [facility] Pneumococcal 7 2001-01-17 Completed University of Conjugate, PCV7 00:00:00 [place] [facility] (Prevnar7) Branch HEPATITIS A 2001-01-17 Completed University of 00:00:00 [facility] Pneumococcal 7 2001-01-17 Completed University of Conjugate, PCV7 00:00:00 [place] [facility] (Prevnar7) Angie HEPATITIS A 2001-01-17 Completed University of 00:00:00 [facility] Pneumococcal 7 2001-01-17 Completed University of Conjugate, PCV7 00:00:00 [place] [facility] ical (Prevnar7) Branch DTAP 1998-12-09 Completed University of 00:00:00 [facility] HIB 4 Dose Schedule 1998-12-09 Completed Unive rsity of 00:00:00 [facility] Polio (IPV/OPV) 1998-12-09 Completed Universit y of 00:00:00 [facility] DTAP 1998-12-09 Completed University of 00:00:00 [facility] HIB 4 Dose Schedule 1998-12-09 Completed Unive rsity of 00:00:00 [facility] Polio (IPV/OPV) 1998-12-09 Completed Universit y of 00:00:00 [facility] DTAP 1998-12-09 Completed University of 00:00:00 [facility] HIB 4 Dose Schedule 1998-12-09 Completed Unive rsity of 00:00:00 [facility] Polio (IPV/OPV) 1998-12-09 Completed Universit y of 00:00:00 [facility] DTAP 1998-12-09 Completed University of 00:00:00 [facility] HIB 4 Dose Schedule 1998-12-09 Completed Unive rsity of 00:00:00 [facility] Polio (IPV/OPV) 1998-12-09 Completed Universit y of 00:00:00 [facility] DTAP 1998-12-09 Completed University of 00:00:00 [facility] HIB 4 Dose Schedule 1998-12-09 Completed Unive rsity of 00:00:00 [facility] Polio (IPV/OPV) 1998-12-09 Completed Universit y of 00:00:00 [facility] MMR 1998-07-20 Completed University of 00:00:00 [facility] Polio (IPV/OPV) 1998-07-20 Completed Universit y of 00:00:00 [facility] Varicella 1998-07-20 Completed University of (varivax)(chicken 00:00:00 [place] [facility] [place] pox) Branch MMR 1998-07-20 Completed University of 00:00:00 [facility] Polio (IPV/OPV) 1998-07-20 Completed Universit y of 00:00:00 [facility] Varicella 1998-07-20 Completed University of (varivax)(chicken 00:00:00 [place] [facility] [place] pox) Branch MMR 1998-07-20 Completed University of 00:00:00 [facility] Polio (IPV/OPV) 1998-07-20 Completed Universit y of 00:00:00 [facility] Varicella 1998-07-20 Completed University of (varivax)(chicken 00:00:00 [place] [facility] [place] pox) Branch MMR 1998-07-20 Completed University of 00:00:00 [facility] Polio (IPV/OPV) 1998-07-20 Completed Universit y of 00:00:00 [facility] Varicella 1998-07-20 Completed University of (varivax)(chicken 00:00:00 [place] [facility] [place] pox) Branch MMR 1998-07-20 Completed University of 00:00:00 [facility] Polio (IPV/OPV) 1998-07-20 Completed Universit y of 00:00:00 [facility] Varicella 1998-07-20 Completed University of (varivax)(chicken 00:00:00 [place] [facility] [place] pox) Branch DTAP 1998-05-20 Completed University of 00:00:00 [facility] HIB 4 Dose Schedule 1998-05-20 Completed Unive rsity of 00:00:00 [facility] Hep B, Adol or Pedi 1998-05-20 Completed Unive rsity of Dosage 00:00:00 [facility] DTAP 1998-05-20 Completed University of 00:00:00 [facility] HIB 4 Dose Schedule 1998-05-20 Completed Unive rsity of 00:00:00 [facility] Hep B, Adol or Pedi 1998-05-20 Completed Unive rsity of Dosage 00:00:00 [facility] DTAP 1998-05-20 Completed University of 00:00:00 [facility] HIB 4 Dose Schedule 1998-05-20 Completed Unive rsity of 00:00:00 [facility] Hep B, Adol or Pedi 1998-05-20 Completed Unive rsity of Dosage 00:00:00 [facility] DTAP 1998-05-20 Completed University of 00:00:00 [facility] HIB 4 Dose Schedule 1998-05-20 Completed Unive rsity of 00:00:00 [facility] Hep B, Adol or Pedi 1998-05-20 Completed Unive rsity of Dosage 00:00:00 [facility] DTAP 1998-05-20 Completed University of 00:00:00 [facility] HIB 4 Dose Schedule 1998-05-20 Completed Unive rsity of 00:00:00 [facility] Hep B, Adol or Pedi 1998-05-20 Completed Unive rsity of Dosage 00:00:00 [facility] Branch DTAP 1998-03-23 Completed University of 00:00:00 [facility] HIB 4 Dose Schedule 1998-03-23 Completed Unive rsity of 00:00:00 [facility] Branch Hep B, Adol or Pedi 1998-03-23 Completed Unive rsity of Dosage 00:00:00 [facility] Polio (IPV/OPV) 1998-03-23 Completed Universit y of 00:00:00 [facility] Branch DTAP 1998-03-23 Completed University of 00:00:00 [facility] HIB 4 Dose Schedule 1998-03-23 Completed Unive rsity of 00:00:00 [facility] Branch Hep B, Adol or Pedi 1998-03-23 Completed Unive rsity of Dosage 00:00:00 [facility] Polio (IPV/OPV) 1998-03-23 Completed Universit y of 00:00:00 [facility] DTAP 1998-03-23 Completed University of 00:00:00 [facility] HIB 4 Dose Schedule 1998-03-23 Completed Unive rsity of 00:00:00 [facility] Branch Hep B, Adol or Pedi 1998-03-23 Completed Unive rsity of Dosage 00:00:00 [facility] Polio (IPV/OPV) 1998-03-23 Completed Universit y of 00:00:00 [facility] DTAP 1998-03-23 Completed University of 00:00:00 [facility] HIB 4 Dose Schedule 1998-03-23 Completed Unive rsity of 00:00:00 [place] [facility] Hep B, Adol or Pedi 1998-03-23 Completed Unive rsity of Dosage 00:00:00 [facility] Polio (IPV/OPV) 1998-03-23 Completed Universit y of 00:00:00 [facility] Branch DTAP 1998-03-23 Completed University of 00:00:00 [facility] HIB 4 Dose Schedule 1998-03-23 Completed Unive rsity of 00:00:00 [facility] Branch Hep B, Adol or Pedi 1998-03-23 Completed Unive rsity of Dosage 00:00:00 [facility] Polio (IPV/OPV) 1998-03-23 Completed Universit y of 00:00:00 [facility] DTAP 1997 Completed University of 00:00:00 [facility] HIB 4 Dose Schedule 1997 Completed Unive rsity of 00:00:00 [facility] Hep B, Adol or Pedi 1997 Completed Unive rsity of Dosage 00:00:00 [facility] Polio (IPV/OPV) 1997 Completed Universit y of 00:00:00 [facility] DTAP 1997 Completed University of 00:00:00 [facility] HIB 4 Dose Schedule 1997 Completed Unive rsity of 00:00:00 [facility] Hep B, Adol or Pedi 1997 Completed Unive rsity of Dosage 00:00:00 [facility] Polio (IPV/OPV) 1997 Completed Universit y of 00:00:00 [facility] DTAP 1997 Completed University of 00:00:00 [facility] HIB 4 Dose Schedule 1997 Completed Unive rsity of 00:00:00 [facility] Hep B, Adol or Pedi 1997 Completed Unive rsity of Dosage 00:00:00 [facility] Polio (IPV/OPV) 1997 Completed Universit y of 00:00:00 [facility] DTAP 1997 Completed University of 00:00:00 [facility] HIB 4 Dose Schedule 1997 Completed Unive rsity of 00:00:00 [facility] Hep B, Adol or Pedi 1997 Completed Unive rsity of Dosage 00:00:00 [facility] Polio (IPV/OPV) 1997 Completed Universit y of 00:00:00 [facility] DTAP 1997 Completed University of 00:00:00 [facility] HIB 4 Dose Schedule 1997 Completed Unive rsity of 00:00:00 [facility] Hep B, Adol or Pedi 1997 Completed Unive rsity of Dosage 00:00:00 [facility] Polio (IPV/OPV) 1997 Completed Universit y of 00:00:00 [facility] Vital Signs Vital Name Observation Time Observation Value Comments Source Systolic blood 2022-05-19 19:39:00 114 mm[Hg] Univer sity of pressure [facility] Diastolic blood 2022-05-19 19:39:00 74 mm[Hg] Unive rsity of pressure [facility] Heart rate 2022-05-19 19:39:00 70 /min [facility] Respiratory rate 2022-05-19 19:39:00 20 /min Univ ersity of [facility] Body height 2022-05-19 19:39:00 157.5 cm [facility] Body weight 2022-05-19 19:39:00 62.37 kg [facility] BMI 2022-05-19 19:39:00 25.15 kg/m2 [facility] Oxygen saturation in 2022-05-19 19:39:00 94 /min [facility] Arterial blood by [facility] Pulse oximetry Branch Procedures This patient has no known procedures. Encounters Start End Encounter Admission Attending Care Care Encounter Source Date/Time Date/Time Type Type Clinicians Facility Department ID 2021-12-31 Outpatient X [facility] [id number] Univers 00:18:56 ity of [facility] 2021-07-30 Outpatient P LARON MOONEY [facility] [id number] Univers 15:52:47 ity of [facility] 2021-07-30 Emergency [facility] [id number] Univers 14:32:12 ity of [facility] 2021-07-29 Emergency [facility] [id number] Univers 22:12:35 ity [facility] 2022-09-12 2022-09-12 Outpatient R LARON MOONEY [facility] [id number] Univers 13:30:00 13:30:00 ity of [facility] 2022-06-14 2022-06-14 Telephone Betzy DCJOSEPH [id number] Univers 00:00:00 00:00:00 [id number] Meredith SHEIKH [id number] [address] 2022-06-01 2022-06-01 Telephone Betzy DCJOSEPH [id number] Univers 00:00:00 00:00:00 Sendil Oscar GUERRERO [id number] [id number] [id number] Ma dicwa NAL 059 [facility] 2022-05-26 2022-05-26 Telephone Betzy [facility] [id number] Univers 00:00:00 00:00:00 Sendil Oscar GUERRERO [id number] [id number] [id number] [facility] [address] [place] [address] 2022-05-25 2022-05-25 [facility] [id number] Univers 08:30:00 23:59:00 SENDIL ity [facility] 2022-05-25 2022-05-25 [facility] [id number] Univers 08:30:00 08:30:00 SENDIL ity [facility] 2022-05-19 2022-05-19 [facility] [id number] Univers 13:00:00 23:59:[address] [facility] 2022-05-19 2022-05-19 [facility] [id number] Univers 15:00:00 15:30:00 Visit Sendmike GUERRERO [id number] [id number] [id number] [address] 2022-05-19 2022-05-19 [facility] [id number] Univers 15:00:00 15:00:00 SENDIL ity [facility] 2022-05-16 2022-05-16 Orders Doctor CAMILO [id number] Univers 00:00:00 00:00:00 Only Unassigned, DEIRDRE [id number] ity of [place] [facility] [id number] Danny as [id number] [address] 2022-05-15 2022-05-15 Outpatient R CARSON [facility] [id number] Univers 13:20:00 13:33:23 JANAY ity of [facility] 2022-05-15 2022-05-15 [facility] [id number] Univers 13:20:00 13:33:23 Care [facility] [id number] it [facility] [id number] Danny as YARIEL?BLEA [id number] [facility] KNEY [address] [place] MEDICAL OFFICE BUILDING 2022-05-15 2022-05-15 Telephone Betzy [facility] [id number] Univers 00:00:00 00:00:00 Pavan GUERRERO [id number] [id number] [id number] Ma dicwa NAL 059 Branch [facility] 2022-05-14 2022-05-14 Emergency [facility] [id number] Univers 15:07:00 17:38:00 Stephanie GUERRERO [id number] [id number] [facility] [id number] [facility] 084 [place] 2022-05-14 2022-05-14 Emergency X [facility] [id number] Univers 15:07:00 17:38:00 YOMILI ity of [facility] 2022-05-14 2022-05-14 Case LESLEE Bo [id number] Univers 00:00:00 00:00:00 Management Pavan GILMORE 350.1.13.10 ity of [facility] 4.2.7.2.686 Danny as [phone] [facility] [address]8 Angie 2022-03-29 2022-03-29 Telephone Laron Mooney [facility] 1.2.840.114 [id number] Univers 00:00:00 00:00:00 Pietro GUERRERO 350.1.13.10 i ty of [place] [phone] [address] 2022-03-29 2022-03-29 Orders Doctor LESLEE 1.2.840.114 [id number] Univers 00:00:00 00:00:00 Only Unassigned, DEIRDRE 350.1.13.10 [facility] 4.2.7.2.686 Danny as [phone] [address] 2022-03-07 2022-03-07 [facility] 1.2.997.234 [id number] Univers 13:00:00 13:50:06 Visit Cam YOLANDA 350.1.13.10 i ty of [place] [phone] [address] 2022-03-07 2022-03-07 Outpatient R LARON MOONEY [facility] [id number] Univers 13:00:00 13:50:06 ity of [facility] 2022-03-07 2022-03-07 Outpatient R LARON MOONEY [facility] [id number] Univers 13:00:00 13:00:00 ity of [facility] 2022-03-07 2022-03-07 Orders Doctor LESLEE 1.2.840.114 [id number] Univers 00:00:00 00:00:00 Only Unassigned, DEIRDRE 350.1.13.10 [facility] 4.2.7.2.686 Danny as [phone] [address] 2022-02-13 2022-02-13 Outpatient R LARON MOONEY [facility] [id number] Univers 10:45:00 13:26:51 ity of [facility] 2022-02-13 2022-02-13 Routine Vinicio [facility] 1.2.175.689 [id number] Univers 10:45:00 13:26:51 Cam YOLANDA 350.1.13.10 ity of [place] [phone] [address] 2022-01-30 2022-01-31 Inpatient P [facility] [id number] Univers 05:46:00 17:00:00 ity of [facility] 2022-01-30 2022-01-31 Hospital Laron Mooney [facility] 1.2.840.114 [id number] Univers 05:46:00 17:00:00 Encounter Pietro GUERRERO 350.1.13.10 it[place] of [place] [phone] [facility] [address] 2022-01-30 2022-01-30 Surgery Laron Mooney [facility] 1.2.093.479 [id number] Univers 08:00:00 09:29:00 Cam YOLANDA 350.1.13.10 i ty [place].2.[place] [phone] [facility] [address] 2022-01-28 2022-01-28 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 114 [id number] Univers 11:00:00 11:15:00 Only Laron Mooney 350.1.13.10 ity of [place].2.7.2.686 [place] [phone] [facility] [address] 2022-01-28 2022-01-28 Orders Doctor LESLEE 1.2.840.114 [id number] Univers 00:00:00 00:00:00 Only Unassigned, DEIRDRE 350.1.13.10 ity [place] [facility] 4.2.7.2.686 Danny as [phone] [facility] [address] 2022-01-25 2022-01-25 Routine Laron Mooney Pietro [facility] 1.2.840.114 [id number] Univers 15:30:00 15:45:00 Christel Ybarra [place] 350.1.13.10 ity of Visit [place].2.[place] [phone] Ma dical NAL [address] [place] [address] 2022-01-25 2022-01-25 Outpatient R AMADA [facility] [id number] Univers 15:30:00 15:30:00 CHRISTEL ity [facility] 2022-01-18 2022-01-18 Outpatient R VINICIO [facility] [id number] Univers 13:00:00 13:36:58 ity of [facility] 2022-01-18 2022-01-18 Routine Mooney [facility] 1.2.660.400 [id number] Univers 13:00:00 13:36:58 Cam [place] 350.1.13.10 ity of [place] 4[place]2.7.2.[place] [phone] Ma dical [address] 2022-01-18 2022-01-18 Outpatient R VINICIO [facility] [id number] Univers 13:00:00 13:00:00 ity of [facility] 2022-01-11 2022-01-11 Outpatient R VINICIO [facility] [id number] Univers 14:00:00 14:54:05 ity of [facility] 2022-01-11 2022-01-11 Routine Vinicio [facility] 1.2.363.100 [id number] [id number] Univers 14:00:00 14:54:05 Cam [place] 350.1.13.10 ity of [place] 4[place]2.7.2.[place] [phone] Ma dical NAL [address] [place] [address] 2022-01-11 2022-01-11 Orders Doctor LESLEE 1.2.840.114 [id number] Univers 00:00:00 00:00:00 Only Unassigned, DEIRDRE 350.1.13.10 ity of [place] [facility] 4.2.7.2.686 Danny as [phone] [address] 2022-01-02 2022-01-02 Outpatient R AMADA [facility] [id number] Univers 16:15:00 16:47:19 CHRISTEL gill [facility] 2022-01-02 2022-01-02 Routine Laron Mooney [facility] 1.2.840.114 [id number] Univers 16:15:00 16:47:19 Christel Ybarra 350.1.13.10 ity of [place].2.[place] [phone] Ma dic[address] 2021-12-30 2021-12-30 Outpatient X RUTH, [facility] DAGO [id number] Univers 18:12:00 23:05:00 JENNIFER gill [facility] 2021-12-30 2021-12-30 Emergency OmahaJaswant lou [facility] 1.2. 840.114 [id number] Univers 18:12:00 23:05:00 Jennifer Weldon 350.1.13.10 ity of [place].2.7.2.686 [place] [phone] [facility] [address] 2021-12-30 2021-12-30 Telephone Laron Mooney [facility] 1.2.840.114 [id number] Univers 00:00:00 00:00:00 Pietro GUERRERO 350.1.13.10 i ty of [place] [phone] [facility] 2021-12-30 2021-12-30 Orders Doctor LESLEE 1.2.840.114 [id number] Univers 00:00:00 00:00:00 Only Unassigned, DEIRDRE 350.1.13.10 ity of [place] [facility] 4.2.7.2.686 Danny as [phone] [facility] [address] 2021-12-26 2021-12-26 Outpatient R AMADA [facility] [id number] Univers 10:30:00 10:30:00 CHRISTEL gill [facility] 2021-12-12 2021-12-12 Outpatient R LARON MOONEY [facility] [id number] Univers 13:15:00 15:26:50 ity of [facility] 2021-12-12 2021-12-12 Routine Laron Mooney [facility] 1.2.181.865 [id number] [facility] 13:15:00 15:26:50 Cam [place] 350.1.13.10 ity of Visit [facility] 4.2.7.2.[place] [phone] Me dical NAL [address] [place] [address] 2021-12-12 2021-12-12 Routine Laron Mooney [facility] 1.2.845.559 [id number] Univers 13:15:00 15:26:50 Cam [place] 350.1.13.10 ity of [place] 4.2.7.2.[place] [phone] Ma dical NAL [address] [place] [address] 2021-12-12 2021-12-12 Telephone Lraon Mooney [facility] 1.2.840.114 [id number] Univers 00:00:00 00:00:00 Cam [place] 350.1.13.10 i ty of [facility] 4.2.7.2.686 [place] [id number] Ma dical NAL [address] [place] [address] 2021-12-05 2021-12-05 Case Amada [facility] 1.2.393.551 [id number] [facility] 00:00:00 00:00:00 Management Christel GUERRERO 350.1.13.10 ity of [facility] 4.2.7.2.[place] [phone] Ma dical NAL [address] [place] [address] 2021-11-30 2021-11-30 Outpatient R AMADA DCJOSEPH [facility] [id number] [facility] 14:45:00 14:57:17 CHRISTEL ity of [facility] 2021-11-30 2021-11-30 Routine Amada [facility] 1.2.370.030 [id number] Univers 14:45:00 14:57:17 Christel [place] 350.1.13.10 ity of Visit [facility] 4.2.7.2.[place] [phone] Ma dical NAL [address] [place] [address] 2021-11-132021-11-13 Case Laron Mooney [facility] 1.2.851.683 [id number] Univers 00:00:00 00:00:00 Management Pietro YOLANDA 350.1.13.10 ity of [place].2.[place] [phone] Ma dical NAL [address] [facility] 2021-11-09 2021-11-09 Retail Manager In Training 2, Adc Lab [facility] 1.2.840.114 [id number] Univers 14:00:00 14:00:00 Visit Laron Mooney 350.1.13.10 ity of [place].2.[place] [phone] Ma dical NAL [address] [facility] 2021-11-09 2021-11-09 Outpatient R LARON MOONEY [facility] [id number] Univers 13:00:00 13:53:41 ity of [facility] 2021-11-09 2021-11-09 Routine Laron Mooney [facility] 1.2.916.016 [id number] Univers 13:00:00 13:53:41 Pietro YOLANDA 350.1.13.10 ity of [place].2.[place] [id number] Ma dical NAL [address] [facility] 2021-10-24 2021-10-24 Retail Manager In Training Ultrasound, [facility] 1.2 .840.114 [id number] Univers 11:15:00 12:00:00 Visit Jennifer Infante TRANSPORTATION MECHANIC 350.1.13.10 ity of REGIONAL 4.2.7.2.686 Danny as MATERNAL [phone] Med ical & CHILD [address] [place] [address] 2021-10-24 2021-10-24 Outpatient P JENNIFER INFANTE [facility] [id number] Univers 11:15:00 11:15:00 JENNIFER INFANTE [facility] 2021-10-14 2021-10-14 Outpatient R LARON MOONEY [facility] [id number] Univers 11:30:00 12:37:28 ity [facility] 2021-10-14 2021-10-14 Routine Mooney, [facility] 1.2.840.114 [id number] Univers 11:30:00 12:37:28 Cam ABIMAEL 350.1.13.10 i ty of Visit [place]2.[place] [phone] [address] 2021-09-19 2021-09-19 Case Amada [facility] 1.2.869.053 [id number] Univers 00:00:00 00:00:00 Management Christel RIVASGERTRUDE 350.1.13.10 ity [facility] 4.2.7.2.[place] [phone] Ma dical [address] 2021-09-16 2021-09-16 Outpatient R VINICIO [facility] [id number] Univers 11:15:00 11:43:31 ity [facility] 2021-09-16 2021-09-16 Routine Vinicio [facility] 1.2.840.114 [id number] Univers 11:15:00 11:43:31 Pietro ROSALES 350.1.13.10 i ty of Visit [place]7.2.[place] [id number] [address] 2021-09-16 2021-09-16 Outpatient R VINICIO [facility] [id number] Univers 11:15:00 11:15:00 ity of [facility] 2021-09-15 2021-09-15 Outpatient P [facility] [id number] Univers 12:00:00 12:00:00 ity [facility] 2021-09-12 2021-09-12 Retail Manager In Training Ultrasound, [facility] 1.2 .840.114 [id number] Univers 12:23:27 13:23:27 Visit Herbert Colby TRANSPORTATION MECHANIC 350.1. 13.10 ity [facility] 4.2.7.2.686 Danny as MATERNAL [phone] [facility] ical & CHILD [address] [place] [address] 2021-09-12 2021-09-12 Outpatient P YAMILA [facility] [id number] Univers 12:30:00 12:30:00 KOUTROUVELI it y of HERBERT Guzman [facility] 2021-09-12 2021-09-12 Outpatient P [facility] [id number] Univers 12:00:00 12:00:00 ity [facility] 2021-09-12 2021-09-12 Outpatient P YAMILA [facility] [id number] Univers 08:00:00 08:00:00 KOELVIAOUVELI it y of HERBERT Guzman [facility] 2021-09-07 2021-09-07 Telephone Laron Mooney [facility] 1.2.840.114 [id number] Univers 00:00:00 00:00:00 Pietro GUERRERO 350.1.13.10 i ty of [place].2.[place] [phone] Ma dical NAL [address] [facility] 2021-08-24 2021-08-24 Retail Manager In Training 2, Adc Lab [facility] 1.2.840.114 [id number] Univers 13:07:21 15:23:43 Visit Laron Mooney 350.1.13.10 ity of [facility] 4.2.7.2.[place] [phone] Ma dical [facility] [address] [facility] 2021-08-24 2021-08-24 Outpatient R [facility] [id number] Univers 13:15:00 13:15[facility]-08-24 2021-08-24 Outpatient R LARON MOONEY [facility] [id number] Univers 13:15:00 13:15:00 [facility] 2021-08-19 2021-08-19 Routine Vinicio Laron [facility] 1.2.840.114 [id number] Univers 11:21:36 12:04:28 Pietro ROSALES 350.1.13.10 i ty of Visit [place] 4[place]2.7.2.[place] [id number] [address] 2021-08-19 2021-08-19 Outpatient R LARON MOONEY [facility] [id number] Univers 10:15:00 12:04:28 ity [facility] 2021-08-02 2021-08-02 Telephone Laron Mooney [facility] 1.2.840.114 [id number] Univers 00:00:00 00:00:00 Pietro GUERRERO 350.1.13.10 i ty of [facility] 4.2.7.2.[place] [id number] Ma dical NAL [address] [facility] 2021-07-27 2021-07-27 Case Amada [facility] 1.2.831.639 [id number] Univers 00:00:00 00:00:00 Management Christel Guerrero 350.1.13.10 ity of [place].2.[place] [phone] Ma dical [facility] [address] [facility] 2021-07-26 2021-07-26 Routine Amada [facility] 1.2.840.114 [id number] Univers 11:20:43 11:54:36 Christel Rosales 350.1.13.10 i ty of Visit Women's 4.2.7.2.686 [place] [phone] [address] 2021-07-26 2021-07-26 Outpatient R AMADA [facility] [id number] Univers 11:15:00 11:15:[facility] 2021-07-25 2021-07-25 Outpatient R AMADA [facility] [id number] Univers 11:00:00 11:00:[address] [facility] 2021-07-20 2021-07-20 Outpatient R [facility] [id number] Univers 11:00:00 11:00:00 [facility] 2021-07-20 2021-07-20 Retail Manager In Training 2, Adc Lab [facility] 1.2.840.114 [id number] Univers 09:33:12 09:38:55 Visit Laron Mooney 350.1.13.10 [place]y of [place].2.[place] [phone] Ma dical nal [address] [facility] 2021-07-20 2021-07-20 Outpatient R LARON MOONEY [facility] [id number] Univers 09:30:00 09:30:00 ity of [facility] 2021-07-20 2021-07-20 Orders Doctor LESLEE 1.2.840.114 [id number] Univers 00:00:00 00:00:00 Only Unassigned, DEIRDRE 350.1.13.10 ity of [place] [facility] 4.2.7.2.686 Danny as [phone] [facility] [address] 2021-07-12 2021-07-12 Telephone Laron Mooney [facility] 1.2.840.114 [id number] Univers 00:00:00 00:00:00 Cam Yolanda 350.1.13.10 i ty of [place].2.[place] [phone] Ma dic[address] 2021-06-30 2021-06-30 Case Amada [facility] 1.2.641.816 [id number] Univers 00:00:00 00:00:00 Management Christel Guerrero 350.1.13.10 [place]y of [place]2.[place] [phone] Ma dic[address] 2021-06-27 2021-06-27 Initial Laron Mooney [facility] 1.2.381.259 [id number] [id number] Univers 12:56:44 14:08:53 Pietro Guerrero 350.1.13.10 ity of Visit [place] 4[place].7.2.686 [place] [phone] Ma dic[address] 2021-06-27 2021-06-27 Outpatient R LARON MOONEY [facility] [id number] Univers 14:00:00 14:00:00 ity of [facility] 2021-06-27 2021-06-27 Orders Doctor LESLEE 1.2.840.114 [id number] Univers 00:00:00 00:00:00 Only Unassigned, DEIRDRE 350.1.13.10 ity of [place] [facility] 4.2.7.2.686 Danny as [id number] [facility] [address] 2021-06-17 2021-06-17 Telephone Chepe Mcmillan 1.2.840.114 [id number] Univers 00:00:00 00:00:00 , Lisa Francoy 350.1.13.10 ity of [place].7.2.[place] [phone] [address] 2021-06-13 2021-06-13 Outpatient R LARON MOONEY [facility] [id number] Univers 10:00:00 10:00:00 ity [facility] 2021-05-26 2021-05-26 Outpatient R VINICIO [facility] [id number] Univers 08:00:00 08:00:00 ity [facility] 2020-11-25 2020-11-25 Outpatient R VINICIO [facility] [id number] Univers 10:30:00 10:30:00 ity [facility] 2020-11-23 2020-11-23 Routine Vinicio [facility] 1.2.698.476 [id number] Univers 14:01:45 14:34:40 Cam [place] 350.1.13.10 ity of Visit [place]2.7.2.686 [place] [phone] Ma dical [address] 2020-11-23 2020-11-23 Routine [facility] 1.2.129.548 [id number] 14:01:45 14:34:40 Cam [place] 350.1.13.10 Visit [place] 4.2.7.2.686 Professio [phone] [address] 2020-11-23 2020-11-23 Outpatient R LARON MOONEY [facility] [id number] Univers 14:15:00 14:15:00 ity [facility] 2020-11-11 2020-11-11 Outpatient R [facility] [id number] Univers 14:00:00 14:00:00 ity [facility] 2020-11-11 2020-11-11 Outpatient R LARON MOONEY [facility] [id number] Univers 11:15:00 11:15:00 ity [facility] 2020-11-11 2020-11-11 Nurse Nurse, [facility] 1.2.840.114 [id number] Univers 10:47:22 11:08:04 Visit Laron Mooney 350.1.13.10 ity of [place] 4.2.7.2.686 [facility] [id number] Ma dical critical access hospital [address] [facility] 2020-11-11 2020-11-11 Nurse Nurse, [facility] 1.2.840.114 [id number] 10:47:22 11:08:04 Visit Women's Yolanda 350.1.13.10 [facility] [place] 4.2.7.2.686 Professio [phone] [address] 2020-10-28 2020-10-29 [facility] Laron Mooney [facility] 1.2.840.114 [id number] [facility] 05:30:00 22:30:00 Encounter Pietro Guerrero 350.1.13.10 ity of [place] 4.2.7.2.686 [facility] [phone] [facility] [address] 2020-10-28 2020-10-29 [facility] Laron Mooney [facility] 1.2.840.114 [id number] 05:30:00 22:30:00 Encounter Pietro [place] 350.1.13.10 [place] 4.2.7.2.686 [place] [id number] 3 2020-10-27 2020-10-27 Laboratory Only, [facility] Test [facility] 1.2.840. 114 [id number] [facility] 10:13:02 10:28:02 Only Donell Saavedra [place] 350.1.13.10 ity of [place] 4.2.7.2.686 [facility] [phone] [facility] [address] 2020-10-27 2020-10-27 Laboratory Only, [facility] 1.2.840.114 [id number] 10:13:02 10:28:02 Only Test [place] 350.1.13.10 [place] 4.2.7.2.686 [place] [phone] [facility] 2020-10-27 2020-10-27 Outpatient R [facility] [id number] Univers 10:00:00 10:00:00 ity of [facility] 2020-10-21 2020-10-21 Routine Laron Mooney DCJOSEPH 1.2.420.608 [id number] [facility] 14:52:05 16:19:18 Cam [place] 350.1.13.10 ity of Visit [place].2.[place] [phone] Ma dical [address] 2020-10-21 2020-10-21 Routine Laron Mooney 1.2.482.955 [id number] 14:52:05 16:19:18 Cam [place] 350.1.13.10 Visit [place] 4.2.7.2.686 Professio [id number] [address] 2020-10-21 2020-10-21 Outpatient R LARON MOONEY [facility] [id number] [facility] 14:45:00 14:45:00 ity of [facility] 2020-10-21 2020-10-21 Orders Doctor LESLEE 1.2.840.114 [id number] 00:00:00 00:00:00 Only Unassigned, DEIRDRE 350.1.13.10 [place] [facility] 4.2.7.2.686 [id number] [facility] 2020-10-21 2020-10-21 Orders Doctor LESLEE 1.2.840.114 [id number] [facility] 00:00:00 00:00:00 Only Unassigned, DEIRDRE 350.1.13.10 ity of [place] [facility] 4.2.7.2.686 Danny as [phone] [address] 2020-10-14 2020-10-14 Routine Laron Mooney DC[facility] 1.2.289.248 [id number] 15:47:58 16:38:20 Cam [place] 350.1.13.10 Visit [place] 4.2.7.2.686 Professio [phone] [address] 2020-10-14 2020-10-14 Routine Laron Mooney 1.2.668.023 [id number] [facility] 15:47:58 16:38:20 Cam [place] 350.1.13.10 ity of Visit [place].2.[place] [phone] Ma dical nal [address] [facility] 2020-10-14 2020-10-14 Retail Manager In Training 2, Adc Lab [facility] 1.2.840.114 [id number] 15:31:53 15:46:53 Visit [place] 350.1.13.10 [place] 4.2.7.2.686 Professio [phone] [address] 2020-10-14 2020-10-14 Retail Manager In Training 2, Adc Lab [facility] 1.2.840.114 [id number] [facility] 15:31:53 15:46:53 Visit Laron Mooney [place] 350.1.13.10 ity of [place]2.7.2.[place] [phone] Ma dical [address] 2020-10-14 2020-10-14 Outpatient R LARON MOONEY [facility] [id number] Univers 15:45:00 15:45:00 ity of [facility] 2020-10-14 2020-10-14 Case Laron Mooney [facility] 1.2.570.479 [id number] 00:00:00 00:00:00 Management Cam [place] 350.1.13.10 [place] 4.2.7.2.686 Professio [phone] [address] 2020-10-14 2020-10-14 Case Laron Mooney [facility] 1.2.652.006 [id number] 1001 [facility] 00:00:00 00:00:00 Management Cam [place] 350.1.13.10 ity of [place].7.2.[place] [phone] Ma dical [address] 2020-10-11 2020-10-11 Telephone Laron Mooney [facility] 1.2.840.114 [id number] 00:00:00 00:00:00 [place] 350.1.13.10 [place] 4.2.7.2.686 Professio [phone] [address] 2020-10-11 2020-10-11 Telephone Laron Mooney [facility] 1.2.840.114 [id number] [facility] 00:00:00 00:00:00 Cam [place] 350.1.13.10 [place] [phone] Ma dic[address] 2020-10-07 2020-10-07 Routine Laron Mooney [facility] 1.2.270.525 [id number] 08:18:49 09:18:03 [place] 350.1.13.10 Visit [place] 4.2.7.2.686 Professio [id number] [address] 2020-10-07 2020-10-07 Routine Laron Mooney [facility] 1.2.075.177 [id number] Univers 08:18:49 09:18:03 Cam [place] 350.1.13.10 [place] [phone] [address] 2020-10-07 2020-10-07 Outpatient R VINICIO [facility] [id number] Univers 08:15:00 08:15:00 ity [facility] 2020-10-06 2020-10-06 Outpatient R AMADA [facility] [id number] Univers 09:45:00 09:45:00 [facility] 2020-10-06 Telephone Laron Mooney [facility] 1.2.840.114 [id number] Univers 00:00:00 00:00:00 Cam [place] 350.1.13.10 [place] [phone] [address] 2020-10-06 2020-10-06 Telephone Laron Mooney [facility] 1.2.840.114 [id number] 00:00:00 00:00:00 [place] 350.1.13.10 [place] 4.2.7.2.686 Professio [phone] [address] 2020-10-02 2020-10-02 Emergency Edgardo Recinos [facility] 1.2.840. 114 [id number] Univers 14:07:00 19:02:00 Laron Mooney Pietro [place] 350.1.13.10 [place] [phone] [facility] [address] 2020-10-02 2020-10-02 Emergency Edgardo Recinos [facility] 1.2.840. 114 [id number] 14:07:00 19:02:00 Laron Mooney 350.1.13.10 [place] 4.2.7.2.686 [place] [phone] [facility] 2020-09-22 2020-09-22 Routine Laron Mooney [facility] 1.2.848.777 [id number] Univers 15:22:19 15:43:16 Pietro Guerrero 350.1.13.10 [id number] [phone] Ma dical [address] 2020-09-22 2020-09-22 Routine Laron Mooney [facility] [id number] 15:22:19 15:43:16 Pietro Guerrero [id number] Visit [place] [id number] Professio [phone] [address] 2020-09-22 2020-09-22 Outpatient R LARON MOONEY [facility] [id number] Univers 15:30:00 15:30:00 ity [facility] 2020-09-13 2020-09-13 Orders Doctor CAMILO 1.2.840.114 [id number] Univers 00:00:00 00:00:00 Only Unassigned, DEIRDRE 350.1.13.10 ity of [place] [facility] 4.2.7.2.686 Danny as [phone] [facility] 009 Angie 2020-09-13 2020-09-13 Orders Doctor LESLEE 1.2.840.114 [id number] 00:00:00 00:00:00 Only Unassigned, DEIRDRE 350.1.13.10 [place] [facility] 4.2.7.2.686 [phone] 009 2020-09-08 2020-09-08 Outpatient R AMADA [facility] [id number] Univers 16:30:00 16:30:00 CHRISTEL ity [facility] 2020-09-08 2020-09-08 Routine Amada, DCMB [id number] [facility] 10:04:39 10:19:39 Christel [place] 350.1.13.10 [place] [phone] Ma dical [address] 2020-09-08 2020-09-08 Routine Amada, DCMB 1.2.210.834 [id number] 10:04:39 10:19:39 Christel [place] 350.1.13.10 Visit [place] 4.2.7.2.686 Professio [phone] [address] 2020-09-04 2020-09-04 Outpatient Harms, [facility] [id number] [facility] 20:56:00 20:56:00 Mart 2020-09-03 2020-09-03 Orders Doctor LESLEE 1.2.840.114 [id number] Univers 00:00:00 00:00:00 Only Unassigned, DEIRDRE 350.1.13.10 ity of [place] [facility] 4.2.7.2.686 Danny as [phone] [address] 2020-09-01 2020-09-01 Case Laron Mooney [facility] 1.2.092.420 [id number] [facility] 00:00:00 00:00:00 Management Cam [place] 350.1.13.10 [place] [phone] Ma dic[address] 2020-09-01 2020-09-01 Case Laron Mooney [facility] 1.2.338.888 [id number] 00:00:00 00:00:00 Management Cam [place] 350.1.13.10 [place] 4.2.7.2.686 Professio [phone] [address] 2020-08-25 2020-08-25 Routine Laron Mooney [facility] [id number] [facility] 09:47:40 10:28:07 Cam [place] 350.1.13.10 [place] [phone] Ma dical nal [address] [facility] 2020-08-25 2020-08-25 Outpatient R LARON MOONEY [facility] [id number] Univers 09:45:00 09:45:00 ity of [facility] 2020-08-11 2020-08-11 Outpatient R [facility] [id number] Univers 10:15:00 10:15:00 ity of [facility] 2020-08-11 2020-08-11 Retail Manager In Training 2, Adc Lab [facility] 1.2.840.114 [id number] Univers 09:10:01 09:25:01 Visit Laron Mooney Pietro Guerrero 350.1.13.10 [place] [phone] Ma dical nal [address] [facility] 2020-07-30 2020-07-30 Retail Manager In Training Ultrasound, Adc [facility] 1.2 .840.114 [id number] Univers 14:09:41 15:09:41 Visit Harry Chisholm 350.1.13.10 [place] [phone] Ma dical nal [address] [facility] 2020-07-30 2020-07-30 Outpatient P [facility] [id number] Univers 14:00:00 14:00:00 ity of [facility] 2020-07-28 2020-07-28 [facility] [id number] Univers 13:02:23 13:51:17 Pietro Guerrero 350.1.13.10 it[place] [phone] Ma dical nal [address] [facility] 2020-07-28 2020-07-28 Outpatient R LARON MOONEY [facility] [id number] Univers 13:00:00 13:00:00 ity of [facility] 2020-07-28 2020-07-28 Letter Doctor CAMILO 1.2.840.114 [id number] Univers 00:00:00 00:00:00 (Out) Unassigned, DEIRDRE 350.1.13.10 ity of [place] [facility] 4.2.7.2.686 Danny as [phone] [facility] [address] 2020-07-13 2020-07-13 Letter MooneyLaron [facility] 1.2.024.140 [id number] Univers 00:00:00 00:00:00 (Out) Cam [place] 350.1.13.10 [place] [phone] Ma dical nal [address] [facility] 2020-07-10 2020-07-10 Emergency [facility] [id number] Univers 06:03:00 06:42:00 [place] S [place] 350.1.13.10 [place] [phone] [facility] [address] 2020-07-08 2020-07-08 Orders Doctor CAMILO 1.2.840.114 [id number] Univers 00:00:00 00:00:00 Only Unassigned, DEIRDRE 350.1.13.10 ity of [place] [facility] 4.2.7.2.686 Danny as [phone] [facility] [address] 2020-07-01 2020-07-01 Telephone Laron Mooney [facility] 1.2.840.114 [id number] Univers 00:00:00 00:00:00 Cam [place] 350.1.13.10 i [place] [phone] Ma dical nal [address] [facility] 2020-06-30 2020-06-30 Initial Alexey Mooneyen [facility] [id number] Univers 14:52:17 16:18:50 Cam [place] 350.1.13.10 it[place] [phone] Ma dical nal [address] [place] [address] 2020-06-30 2020-06-30 Outpatient R VINICIO LARON [facility] [id number] Univers 14:30:00 14:30:00 ity of [facility] 2020-06-30 2020-06-30 Orders Doctor CAMILO 1.2.840.114 [id number] Univers 00:00:00 00:00:00 Only Unassigned, DEIRDRE 350.1.13.10 ity of [place] [facility] 4.2.7.2.686 Danny [phone] [facility] [address] 2020-06-21 2020-06-21 [facility] 1.2.840.114 [id number] Univers 02:25:00 03:35:00 Encounter Jennifer Guerrero 350.1.13.10 ity of [place] 4.2.7.2.686 [facility] [phone] [facility] [address] 2020-06-21 2020-06-21 Outpatient P [facility] DAGO [id number] Univers 02:25:00 02:25:00 JENNIFER gill [facility] 2019-10-11 2019-10-12 Emergency X [facility] ERT [id number] Univers 23:44:50 04:24:00 STEPHANIE gill [facility] Results This patient has no known results.
[2022-09-06 20:15] LABS: Urine Blood Trace-lysed (Negative); Urine Glucose Negative (Negative); Urine Protein Negative (Negative); Urine Specific Gravity <=1.005 (1.005-1.030); Urine pH 5.5 (5.0-7.0)
[2022-09-06 20:53] LABS: SARS-COV-2 RT PCR NEGATIVE (NEGATIVE)
[2022-09-06 21:24] LABS: Hematocrit 39.3 % (36.0-45.0); MCV 83.5 fL (80-100); MPV 9.9 fL (7.6-11.3)
[2022-09-06 21:37] LABS: Potassium 3.2 mmol/L (3.5-5.1)
[2022-09-06] MEDS ORDERED: POTASSIUM 25 MEQ EFFERV TAB ONE (21:45)
--- NOTE | 2022-09-06 22:13 | RAD REPORT ---
EXAM DESCRIPTION: US - BREAST/AXILLA, LIMITED - 09/06/2022 9:54 pm CLINICAL HISTORY: Palpable mass, breast-feeding, possible abscess COMPARISON: None FINDINGS: Retroareolar and lower outer quadrant right breast sonography performed. In the retroareol ar region of the breast there prominent ducts, not unexpected given the breast-feeding history. In th e lower outer quadrant of the right breast, area of patient pain, there is no abscess or abnormal flu id collection identifiable. No abnormal skin thickening or edema. IMPRESSION: No abscess or other suspicious finding of the right breast identified.
--- NOTE | 2022-09-06 22:17 | ER ---
Nurse's Notes [facility] Name: Yesica Islas Age: 27 yrs Sex: Female : 1995 Arrival Date: 09/06/2022 Time: 19:21 Bed 9 Private MD: Diagnosis: Nonpurulent mastitis associated with Presentation: 09/06 19:23 Chief complaint: EMS states: " 27 female and presenting with weakeners and numbness to tw5 her extremities it started in her hand then moved to her whole body. It appears to be anxiety driven. She has NKA, no medical history. She states that she doesn't take anything.". Chief complaint: Patient states: "I had a fever earlier, I took a bath because I had the chills. I called the EMS because everything was getting numb and I got scared. They just got off daycare and I couldn't open anything because my hands were so numb and they have been like this." Patients states " My hands are cramped like this, I cannot move them.". Coronavirus screen: Vaccine status:. Coronavirus screen: Vaccine status: Patient reports being unvaccinated. Ebola Screen: Patient negative for fever greater than or equal to 101.5 degrees Fahrenheit, and additional compatible Ebola Virus Disease symptoms Patient denies exposure to infectious person. Patient denies travel to an Ebola-affected area in the 21 days before illness onset. Initial Sepsis Screen: Does the patient meet any 2 criteria? HR > 90 bpm. Does the patient have a suspected source of infection? No. Patient's initial sepsis screen is negative. Risk Assessment: Do you want to hurt yourself or someone else? Patient reports no desire to harm self or others. Onset of symptoms was September 06, 2022 at 17:30. 19:23 Method Of Arrival: EMS: [facility] tw5 19:23 Acuity: KOFI 3 tw5 Triage Assessment: 19:31 General: Appears uncomfortable, Behavior is appropriate for age, anxious. Pain: Pain tw5 currently is 6 out of 10 on a pain scale. 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 - Social history:: Smoking status: Patient denies any tobacco usage or history of. Screenin:33 Abuse screen: Denies threats or abuse. Denies injuries from another. Nutritional ld1 screening: No deficits noted. Tuberculosis screening: No symptoms or risk factors identified. Fall Risk None identified. Assessment: 20:33 Reassessment: Patient appears in no apparent distress at this time. No changes from ld1 previously documented assessment. Patient and/or family updated on plan of care and expected duration. Pain level reassessed. See triage assessment. 21:13 Reassessment: Patient appears in no apparent distress at this time. Patient and/or ld1 family updated on plan of care and expected duration. Pain level reassessed. Patient is alert, oriented x 3, equal unlabored respirations, skin warm/dry/pink. 22:26 Reassessment: Patient is alert, oriented x 3, equal unlabored respirations, skin bb warm/dry/pink. pt verbalized understanding of and agrees to plan of care discharge instructions given pt ambulated with steady gait to exit. Vital Signs: 19:23 BP 113 / 77; Pulse 124; Resp 18; Temp 98.7; Pulse Ox 99% on R/A; Weight 56.7 kg; Height tw5 5 ft. 2 in. (157.48 cm); Pain 6/10; 20:33 BP 118 / 76; Pulse 109; Resp 18; Pulse Ox 99% on R/A; ld1 21:13 BP 113 / 74; Pulse 103; Resp 18; Pulse Ox 99% on R/A; ld1 19:23 Body Mass Index 22.86 (56.70 kg, 157.48 cm) tw5 ED Course: 19:21 Patient arrived in ED. tw5 19:31 Triage completed. tw5 19:31 Arm band placed on. tw5 19:53 Vanessa Barahona PA-C is PHCP. sb4 20:13 Jennifer Powers, PIPO is Primary Nurse. ld1 20:13 COVID-19/FLU A+B Sent. ld1 20:33 Patient has correct armband on for positive identification. Placed in gown. Bed in low ld1 position. Call light in reach. Side rails up X2. Pulse ox on. NIBP on. Door closed. Noise minimized. 20:33 No provider procedures requiring assistance completed. ld1 21:12 BMP Sent. ld1 21:12 CBC w/o diff Sent. ld1 21:12 Inserted saline lock: 20 gauge in right forearm, using aseptic technique. Blood ld1 collected. 21:56 BREAST/AXILLA, LIMITED In Process Unspecified. EDMS 22:13 Primary Nurse role handed off by Jennifer Powers, RN tw5 22:13 Miar Dean is Primary Nurse. tw5 22:17 Tj Bravo MD is Referral Physician. sb4 22:18 Waqas Siddiqi MD is Attending Physician. sb4 22:26 IV discontinued, intact, bleeding controlled, No redness/swelling at site. Pressure bb dressing applied. Administered Medications: 21:45 Drug: Potassium Effervescent Tablet 50 mEq Route: PO; ld1 Medication: 20:33 VIS not applicable for this client. ld1 Outcome: 22:17 Discharge ordered by MD. sb4 22:27 Discharged to home ambulatory. bb 22:27 Condition: stable 22:27 Discharge instructions given to patient, Instructed on discharge instructions, follow up and referral plans. medication usage, Demonstrated understanding of instructions, follow-up care, medications, Prescriptions given X 1. 22:27 Patient left the ED. bb Signatures: Dispatcher [employer] Karyn Liu RN RN bb Jennifer Powers, RN PIPO ld1 Mira Dean tw5 Vanessa Barahona PAAndrei PAAndrei sb4 Corrections: (The following items were deleted from the chart) 19:31 19:23 Onset of symptoms is unknown. tw5 tw5
--- NOTE | 2022-09-06 22:18 | EDPHYS ---
Physician Documentation [facility] Name: Yesica Islas Age: 27 yrs Sex: Female : 1995 Arrival Date: 09/06/2022 Time: 19:21 Bed 9 Private MD: ED Physician Waqas Siddiqi HPI: 09/06 21:22 This 27 yrs old Female presents to ER via EMS with complaints of bilateral sb4 hand numbness. 21:22 Patient is a 27-year-old female, 7 months , who presented to the ED via EMS sb4 with complaints of bilateral hand numbness. She reports that she has been very overwhelmed taking care of her 3 children that are all under the age of 3. She is breast-feeding her 7-month-old. She has numerous complaints today-states her right breast is hurting, she feels a pressure sensation when she urinates, she feels hot, and also a dental problem.. 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 - Social history:: Smoking status: Patient denies any tobacco usage or history of. ROS: 21:22 Constitutional: Negative for fever, chills, and weight loss, Eyes: Negative for injury, sb4 pain, redness, and discharge, ENT: Negative for injury, pain, and discharge, Cardiovascular: Negative for chest pain, palpitations, and edema, Respiratory: Negative for shortness of breath, cough, wheezing, and pleuritic chest pain, Abdomen/GI: Negative for abdominal pain, nausea, vomiting, diarrhea, and constipation, MS/Extremity: Negative for injury and deformity, Skin: Negative for injury, rash, and discoloration. Exam: 21:22 Constitutional: This is a well developed, well nourished patient who is awake, alert, sb4 and in no acute distress. Head/Face: Normocephalic, atraumatic. Eyes: Pupils equal round and reactive to light, extra-ocular motions intact. Periorbital areas with no swelling, redness, or edema. ENT: Mucous membranes moist. Cardiovascular: Regular rate and rhythm with a normal S1 and S2. Respiratory: Lungs have equal breath sounds bilaterally, clear to auscultation and percussion. No rales, rhonchi or wheezes noted. No increased work of breathing, no retractions or nasal flaring. Abdomen/GI: Soft, non-tender, no distension. Skin: Warm, dry with normal turgor. Normal color with no rashes, no lesions, and no evidence of cellulitis. Vital Signs: 19:23 BP 113 / 77; Pulse 124; Resp 18; Temp 98.7; Pulse Ox 99% on R/A; Weight 56.7 kg; Height tw5 5 ft. 2 in. (157.48 cm); Pain 6/10; 20:33 BP 118 / 76; Pulse 109; Resp 18; Pulse Ox 99% on R/A; ld1 21:13 BP 113 / 74; Pulse 103; Resp 18; Pulse Ox 99% on R/A; ld1 19:23 Body Mass Index 22.86 (56.70 kg, 157.48 cm) tw5 MDM: 19:54 Patient medically screened. sb4 21:40 ED course: White blood cell count came back elevated at 15.7. Also learned that patient sb4 had a fever earlier today. Will order breast ultrasound as there is a lump noted on breast exam. There is no erythema or fluctuance noted.. 22:19 Data reviewed: vital signs, lab test result(s), radiologic studies, ultrasound. [facility] 09/06 20:05 Order name: COVID-19/FLU A+B; Complete Time: 21:09 4 09/06 20:15 Order name: Urine Dipstick-Ancillary; Complete Time: 20:15 EDMS 09/06 20:16 Order name: CBC w/o diff; Complete Time: 21:28 4 09/06 20:16 Order name: BMP; Complete Time: 21:38 sb4 09/06 20:05 Order name: Urine Dipstick-Ancillary (obtain specimen); Complete Time: 20:13 4 09/06 21:38 Order name: BREAST/AXILLA, LIMITED; Complete Time: 22:16 EDMS Administered Medications: 21:45 Drug: Potassium Effervescent Tablet 50 mEq Route: PO; ld1 Disposition: 22:19 Chart complete. sb4 Disposition Summary: 09/06/22 22:17 Discharge Ordered Location: Home sb4 Problem: new sb4 Symptoms: are unchanged sb4 Condition: Stable sb4 Diagnosis - Nonpurulent mastitis associated with sb4 Followup: sb4 - With: Tj Bravo MD - When: 2 - 3 days - Reason: Worsening of condition, Recheck today's complaints, Re-evaluation by your physician Discharge Instructions: - Discharge Summary Sheet sb4 - and Mastitis sb4 Forms: - Medication Reconciliation Form sb4 - Thank You Letter sb4 - Antibiotic Education sb4 - Prescription Opioid Use sb4 Prescriptions: - Dicloxacillin 250 mg Oral Capsule - take 1 capsule by ORAL route every 6 hours for 10 days; 40 capsule; Refills: 0, sb4 Product Selection Permitted Signatures: Dispatcher [employer] EDJennifer Adair RN RN ld1 Mira Dean tw5 Vanessa Barahona PA-C PA-C sb4 Corrections: (The following items were deleted from the chart) 21:23 20:14 URINE --ANCILLARY+UC.LAB.BRZ ordered. EDMS EDMS
[2022-09-07 05:09] VITALS: TEMP 98.7; O2SAT 99
[2022-09-07 05:11] VITALS: BP 113/74
== END 2022-09-06 22:27 | disposition home or self-care (01) ==
LOC: ER 19:16
DX: O91.23 Nonpurulent mastitis associated with lactation (principal); Z20.822 Contact with and (suspected) exposure to COVID-19
CPT/HCPCS: 80048; 36415; 81003; 85027; 0240U; 76642; 99284

== ENCOUNTER 2023-05-18 15:10 | Emergency (ER) | payer OTHER ==
--- OUTSIDE RECORDS SUMMARY | 2023-05-18 15:16 | XMS REPORT | Continuity of Care Document ---
:1995 Author Organization [facility] t Address [address] [place] [address] Care Team Providers Name Role Phone Pcp, Patient Does Not Have A Primary Care Physician [phone] LARON MOONEY Attending Clinician Unavailable Ebenezer Araujo NP Attending Clinician Lab, Ang - Db Attending Clinician Unavailable EBENEZER ARAUJO Attending Clinician Unavailable Laron Mooney MD Attending Clinician Doctor Unassigned, [place] Attending Clinician Unavailable KENYA BELL Attending Clinician Unavailable Kenya Fry Attending Clinician Unknown, Attending Attending Clinician Unavailable Yvan Nickerson Attending Clinician YVAN CHOE Attending Clinician Unavailable Betzy CRAIG, Lisa K.HLiana Attending Clinician LISA BOHLiana Attending Clinician Unavailable NEERU BYRD Attending Clinician Unavailable Neeru Byrd MD Attending Clinician Stephanie Ro MD Attending Clinician STEPHANIE RO Attending Clinician Unavailable Pob, [facility] Main Attending Clinician Unavailable Only, [facility] Test Attending Clinician Unavailable Anny Ybarra PA-C Attending Clinician ANNY YBARRA Attending Clinician Unavailable JENNIFER WELDON Attending Clinician Unavailable Jaswant Kirby Attending Clinician Jennifer Weldon MD Attending Clinician 2, [facility] Attending Clinician Unavailable Ultrasound, Ang-Mfm Attending Clinician Unavailable Jose Infante MD Attending Clinician JOSE INFANTE Attending Clinician Unavailable JOSE INFANTE Attending Clinician Unavailable Yamila Blum MD, Herbert Attending Clinician [phone] HERBERT COLBY Attending Clinician Unavailable Chepe RN, Lisa Parikh Attending Clinician Unavailable Nurse, [facility] Attending Clinician Unavailable Donell Saavedra MD Attending Clinician Edgardo Recinos MD Attending Clinician Mart Steele Attending Clinician Unavailable Ultrasound, [facility] Mfm Attending Clinician Unavailable Harry Chisholm MD Attending Clinician JENNIFER WELDON Admitting Clinician Unavailable LARON MOONEY Admitting Clinician Unavailable LISA BO Admitting Clinician Unavailable Laron Mooney MD Admitting Clinician Jennifer Weldon MD Admitting Clinician STEPHANIE RO Admitting Clinician Unavailable Payers Payer Name Policy Type Policy Number Effective Date Expiration Date [facility] [id number] [address] [facility] [place] MEDICAID 00:00:00 Problems Condition Condition Condition Status Onset Resolution Last Treating Co mments Source Name Details Category Date Date Treatment Clinician Date Disease Active Univers control control 05-17 [place] [facility] Disease Active Uni vers examinatio examinatio 05-17 it y of n [place] test, [place] 00 Medica l result result Branch BMI BMI Disease Active Univers 25.0-25.9, 25.0-25.9, 8-17 it y of adult adult 00:00: [address] Liveborn Liveborn Disease Active Unive rs , of , of 1-28 it y of garrido garrido 00:00: Meredith shah , , 00 Me dical born in born in [facility] by by delivery delivery Obesity Obesity Disease Active 2019-10 Univers (BMI (BMI 1-25 ity of 30-39.9) 30-39.9) 00:00: [place] [facility] Previous Previous Disease Active Unive rs 9-30 ity of section section 00:00: [address] Allergies, Adverse Reactions, Alerts Allergy Allergy Status Severity Reaction(s) Onset Inactive Treating Comm ents Source Name Type Date Date Clinician No Known DA Active U 2019-10 [facility] Drug 2-05 Allergie 00:00: 00 NO KNOWN Drug Active Univers ALLERGIE Class ity of S [facility] Social History Social Habit Start Date Stop Date Quantity Comments Source Gender identity Universit y of [facility] intake 2023-05-17 2023-05-17 0 /d University of 00:00:00 00:00:00 [facility] Exposure to 2023-01-27 2023-02-06 Not sure [facility] SARS-CoV-2 (event) 00:00:00 16:37:00 [facility] Tobacco use and 2022-05-19 2022-05-19 Smokeless Universit y of exposure 00:00:00 00:00:00 tobacco [facility] 2022-05-15 2022-05-15 Univers ity of function 00:00:00 00:00:00 [facility] Sex Ass[birth year] At [birth year] Universit y of 00:00:00 00:00:00 [facility] Smoking Status Start Date Stop Date Source Never smoked tobacco [facility] Medications Ordered Filled Start Stop Current Ordering Indication Dosage Frequency Signature Comments Components Source Medication Medication Date Date Medication? Clinician (SIG) Name Name polymyxin B Yes [id number] 1[drp] Place 1 Univers sulf-trimet 6-21 Drop in ity o f hoprim 00:00: both eyes [place] 10,000 00 every 4 Medical unit- 1 (four) Branch mg/mL hours. ophthalmic drops polymyxin B 2023-0 Yes [id number] 1[drp] Place 1 Univers sulf-trimet 6-21 Drop in ity o f hoprim 00:00: both eyes [place] 10,000 00 every 4 Medical unit- 1 (four) Branch mg/mL hours. ophthalmic drops polymyxin B 2023-0 Yes [id number] 1[drp] Place 1 Univers sulf-trimet 6-21 Drop in ity o f hoprim 00:00: both eyes [place] 10,000 00 every 4 Medical unit- 1 (four) Branch mg/mL hours. ophthalmic drops polymyxin B 2023-0 Yes [id number] 1[drp] Place 1 Univers sulf-trimet 6-21 Drop in ity o f hoprim 00:00: both eyes [place] 10,000 00 every 4 Medical unit- 1 (four) Branch mg/mL hours. ophthalmic drops polymyxin B 2023-0 Yes [id number] 1[drp] Place 1 Univers sulf-trimet 6-21 Drop in ity o f hoprim 00:00: both eyes [place] 10,000 00 every 4 Medical unit- 1 (four) Branch mg/mL hours. ophthalmic drops polymyxin B 2023-0 Yes [id number] 1[drp] Place 1 Univers sulf-trimet 6-21 Drop in ity o f hoprim 00:00: both eyes [place] 10,000 00 every 4 Medical unit- 1 (four) Branch mg/mL hours. ophthalmic drops polymyxin B 2023-0 Yes [id number] 1[drp] Place 1 Univers sulf-trimet 6-21 Drop in ity o f hoprim 00:00: both eyes [place] 10,000 00 every 4 Medical unit- 1 (four) Branch mg/mL hours. ophthalmic drops polymyxin B 2023-0 Yes [id number] 1[drp] Place 1 Univers sulf-trimet 6-21 Drop in ity o f hoprim 00:00: both eyes [place] 10,000 00 every 4 Medical unit- 1 (four) Branch mg/mL hours. ophthalmic drops cephALEXin 2023-0 2023- No [id number] 500mg Take 1 Univers (KEFLEX) 02-06 [id number] capsule by it y of 500 mg 00:00: 04:59 mouth 4 [place] capsule 00 :00 (four) Medical times Branch daily for 10 days. clindamycin 2021- No [id number] 150mg Take 1 Univers 150 mg 8-15 08-21 capsule by ity of capsule 00:00: 04:59 mouth 4 [place] 00 :00 (four) Medical times Branch daily for 5 days. clindamycin 2021- No [id number] 150mg Take 1 Univers 150 mg 8-15 08-21 capsule by ity of capsule 00:00: 04:59 mouth 4 [place] 00 :00 (four) Medical times Branch daily for 5 days. Yes [id number] 1{tbl} Take 1 Univers vitamin 5-03 tablet by ity of w/FA tablet 00:00: mouth [place] 00 daily. Medical Branch ferrous Yes [id number] 325mg Take 1 Un sowmya sulfate 325 5-03 tablet by ity of mg (65 mg 00:00: mouth 2 [place] iron) 00 (two) Medical tablet times Branch daily. Yes [id number] 1{tbl} Take 1 Univers vitamin 5-03 tablet by ity of w/FA tablet 00:00: mouth [place] 00 daily. Medical Branch ferrous Yes [id number] 325mg Take 1 Un sowmya sulfate 325 5-03 tablet by ity of mg (65 mg 00:00: mouth 2 [place] iron) 00 (two) Medical tablet times Branch daily. Yes [id number] 1{tbl} Take 1 Univers vitamin 5-03 tablet by ity of w/FA tablet 00:00: mouth [place] 00 daily. Medical Branch ferrous Yes [id number] 325mg Take 1 Un sowmya sulfate 325 5-03 tablet by ity of mg (65 mg 00:00: mouth 2 [place] iron) 00 (two) Medical tablet times Branch daily. Yes [id number] 1{tbl} Take 1 Univers vitamin 5-03 tablet by ity of w/FA tablet 00:00: mouth [place] 00 daily. Medical Branch ferrous Yes [id number] 325mg Take 1 Un sowmya sulfate 325 5-03 tablet by ity of mg (65 mg 00:00: mouth 2 [place] iron) 00 (two) Medical tablet times Branch daily. 2021-0 Yes [id number] 1{tbl} Take 1 Univers vitamin 5-03 tablet by ity of w/FA tablet 00:00: mouth [place] 00 daily. Medical Branch ferrous 2021-0 Yes [id number] 325mg Take 1 Un sowmya sulfate 325 5-03 tablet by ity of mg (65 mg 00:00: mouth 2 [place] iron) 00 (two) Medical tablet times Branch daily. 2021-0 Yes [id number] 1{tbl} Take 1 Univers vitamin 5-03 tablet by ity of w/FA tablet 00:00: mouth [place] 00 daily. Medical Branch ferrous 0 Yes [id number] 325mg Take 1 Un sowmya sulfate 325 5-03 tablet by ity of mg (65 mg 00:00: mouth 2 [place] iron) 00 (two) Medical tablet times Branch daily. 2021-0 Yes [id number] 1{tbl} Take 1 Univers vitamin 5-03 tablet by ity of w/FA tablet 00:00: mouth [place] 00 daily. Medical Branch ferrous 2021-0 Yes [id number] 325mg Take 1 Un sowmya sulfate 325 5-03 tablet by ity of mg (65 mg 00:00: mouth 2 [place] iron) 00 (two) Medical tablet times Branch daily. 2021-0 Yes [id number] 1{tbl} Take 1 Univers vitamin 5-03 tablet by ity of w/FA tablet 00:00: mouth [place] 00 daily. Medical Branch ferrous 2021-0 Yes [id number] 325mg Take 1 Un sowmya sulfate 325 5-03 tablet by ity of mg (65 mg 00:00: mouth 2 [place] iron) 00 (two) Medical tablet times Branch daily. 2021-0 Yes [id number] 1{tbl} Take 1 Univers vitamin 5-03 tablet by ity of w/FA tablet 00:00: mouth [place] 00 daily. Medical Branch ferrous 2021-0 Yes [id number] 325mg Take 1 Un sowmya sulfate 325 5-03 tablet by ity of mg (65 mg 00:00: mouth 2 [place] iron) 00 (two) Medical tablet times Branch daily. 2021-0 Yes [id number] 1{tbl} Take 1 Univers vitamin 5-03 tablet by ity of w/FA tablet 00:00: mouth [place] 00 daily. Medical Branch ferrous 2021-0 Yes [id number] 325mg Take 1 Un sowmya sulfate 325 5-03 tablet by ity of mg (65 mg 00:00: mouth 2 [place] iron) 00 (two) Medical tablet times Branch daily. 2021-0 Yes [id number] 1{tbl} Take 1 Univers vitamin 5-03 tablet by ity of w/FA tablet 00:00: mouth [place] 00 daily. Medical Branch ferrous 0 Yes [id number] 325mg Take 1 Un sowmya sulfate 325 5-03 tablet by ity of mg (65 mg 00:00: mouth 2 [place] iron) 00 (two) Medical tablet times Branch daily. 2021-0 Yes [id number] 1{tbl} Take 1 Univers vitamin 5-03 tablet by ity of w/FA tablet 00:00: mouth [place] 00 daily. Medical Branch ferrous 2021- Yes [id number] 325mg Take 1 Un sowmya sulfate 325 5-03 tablet by ity of mg (65 mg 00:00: mouth 2 [place] iron) 00 (two) Medical tablet times Branch daily. 2021- Yes [id number] 1{tbl} Take 1 Univers vitamin 5-03 tablet by ity of w/FA tablet 00:00: mouth [place] 00 daily. Medical Branch ferrous 0 Yes [id number] 325mg Take 1 Un sowmya sulfate 325 5-03 tablet by ity of mg (65 mg 00:00: mouth 2 [place] iron) 00 (two) Medical tablet times Branch daily. 2021-0 Yes [id number] 1{tbl} Take 1 Univers vitamin 5-03 tablet by ity of w/FA tablet 00:00: mouth [place] 00 daily. Medical Branch ferrous 2021-0 Yes [id number] 325mg Take 1 Un sowmya sulfate 325 5-03 tablet by ity of mg (65 mg 00:00: mouth 2 [place] iron) 00 (two) Medical tablet times Branch daily. 2021-0 Yes [id number] 1{tbl} Take 1 Univers vitamin 5-03 tablet by ity of w/FA tablet 00:00: mouth [place] 00 daily. Medical Branch ferrous 2021-0 Yes [id number] 325mg Take 1 Un sowmya sulfate 325 5-03 tablet by ity of mg (65 mg 00:00: mouth 2 [place] iron) 00 (two) Medical tablet times Branch daily. Immunizations Ordered Immunization Filled Immunization Date Status Commen ts Source Name Name [facility] 2021-11-30 Completed University of 00:00:00 [facility] TDAP 2021-11-30 Completed University of 00:00:00 [facility] TDAP 2021-11-30 Completed University of 00:00:00 [facility] TDAP 2021-11-30 Completed University of 00:00:00 [facility] TDAP 2021-11-30 Completed University of 00:00:00 [facility] TDAP 2021-11-30 Completed University of 00:00:00 [facility] TDAP 2021-11-30 Completed University of 00:00:00 [facility] TDAP 2021-11-30 Completed University of 00:00:00 [facility] TDAP 2021[facility]11-30 [facility] 00:00:00 [facility] TDAP 2021-11-30 Completed University of 00:00:00 [facility] TDAP 2021-11-30 Completed University of 00:00:00 [facility] TDAP 2021-11-30 Completed University of 00:00:00 [facility] TDAP 2021-11-30 Completed University of 00:00:00 [facility] TDAP 2021-11-30 Completed University of 00:00:00 [facility] Influenza Virus 2021-08-19 Completed Universit y of [...] Branch TDAP 2020-08-25 Completed University of 00:00:00 [place] [facility] TDAP 2020-08-25 Completed University of 00:00:00 [place] [facility] TDAP 2020-08-25 Completed University of 00:00:00 [place] [facility] TDAP 2020-08-25 Completed University of 00:00:00 [place] [facility] TDAP 2020-08-25 Completed University of 00:00:00 [place] [facility] TDAP 2020-08-25 Completed University of 00:00:00 [place] [facility] TDAP 2020-08-25 Completed University of 00:00:00 [place] [facility] TDAP 2020-08-25 Completed University of 00:00:00 [place] [facility] TDAP 2020-08-25 Completed University of 00:00:00 [place] [facility] TDAP 2020-08-25 Completed University of 00:00:00 [place] [facility] TDAP 2020-08-25 Completed University of 00:00:00 [place] [facility] TDAP 2020-08-25 Completed University of 00:00:00 [facility] TDAP 2020-08-25 Completed University of 00:00: [facility] TDAP 2020-08-25 Completed University of :00: [facility] TDAP 2020-08-25 Completed University of 00:00:00 [facility] Influenza Virus 2020-06-30 Completed Universit y of [...] Branch HPV 2012-02-08 Completed University of 00:00:00 [place] [facility] HPV 2012-02-08 Completed University of 00:00:00 [place] [facility] HPV 2012-02-08 Completed University of 00:00:00 [place] [facility] HPV 2012-02-08 Completed University of 00:00:00 [place] [facility] HPV 2012-02-08 Completed University of 00:00:00 [place] [facility] HPV 2012-02-08 Completed University of 00:00:00 [place] [facility] HPV 2012-02-08 Completed University of 00:00:00 [place] [facility] HPV 2012-02-08 Completed University of 00:00:00 [place] [facility] HPV 2012-02-08 Completed University of 00:00:00 [place] [facility] HPV 2012-02-08 Completed University of 00:00:00 [place] [facility] HPV 2012-02-08 Completed University of 00:00:00 [place] [facility] HPV 2012-02-08 Completed University of 00:00:00 [place] [facility] HPV 2012-02-08 Completed University of 00:00:00 [place] [facility] HPV 2012-02-08 Completed University of 00:00:00 [place] [facility] HPV 2012-02-08 Completed University of 00:00:00 [place] [facility] HPV 2011-10-31 Completed University of 00:00:00 [place] [facility] HPV 2011-10-31 Completed University of 00:00:00 [place] [facility] HPV 2011-10-31 Completed University of 00:00:00 [place] [facility] HPV 2011-10-31 Completed University of 00:00:00 [place] [facility] HPV 2011-10-31 Completed University of 00:00:00 [place] [facility] HPV 2011-10-31 Completed University of 00:00:00 [place] [facility] HPV 2011-10-31 Completed University of 00:00:00 [place] [facility] HPV 2011-10-31 Completed University of 00:00:00 [place] [facility] HPV 2011-10-31 Completed University of 00:00:00 [place] [facility] HPV 2011-10-31 Completed University of 00:00:00 [place] [facility] HPV 2011-10-31 Completed University of 00:00:00 [place] [facility] HPV 2011-10-31 Completed University of 00:00:00 [place] [facility] HPV 2011-10-31 Completed University of 00:00:00 [place] [facility] HPV 2011-10-31 Completed University of 00:00:00 [place] [facility] HPV 2011-10-31 Completed University of 00:00:00 [facility] HPV 2011-07-13 Completed University of 00:00:00 [facility] Branch HPV 2011-07-13 Completed University of 00:00:00 [facility] Branch HPV 2011-07-13 Completed University of 00:00:00 [facility] Branch HPV 2011-07-13 Completed University of 00:00:00 [facility] Branch HPV 2011-07-13 Completed University of 00:00:00 [facility] Branch HPV 2011-07-13 Completed University of 00:00:00 [facility] Branch HPV 2011-07-13 Completed University of 00:00:00 [facility] Branch HPV 2011-07-13 Completed University of 00:00:00 [facility] Branch HPV 2011-07-13 Completed University of 00:00:00 [facility] Branch HPV 2011-07-13 Completed University of 00:00:00 [facility] Branch HPV 2011-07-13 Completed University of 00:00:00 [facility] HPV 2011-07-13 Completed University of 00:00:00 [facility] Branch HPV 2011-07-13 Completed University of 00:00:00 [facility] Branch HPV 2011-07-13 Completed University of 00:00:00 [facility] HPV 2011-07-13 Completed University of 00:00:00 [facility] Meningococcal 2010-12-28 Completed University of Polysaccharide 00:00:00 [place] [facility]mond (groups A, C, Y and Branc h W-135) conjugate vaccine (MCV4P) TDAP 2010-12-28 Completed University of 00:00:00 [facility] Varicella 2010-12-28 Completed University of (varivax)(chicken 00:00:00 [place] [facility] pox) Branch Meningococcal 2010-12-28 Completed University of Polysaccharide 00:00:00 [place] [facility] (groups A, C, Y and Branc h W-135) conjugate vaccine (MCV4P) TDAP 2010-12-28 Completed University of 00:00:00 [facility] Varicella 2010-12-28 Completed University of (varivax)(chicken 00:00:00 [place] M [facility]ical pox) Branch Meningococcal 2010-12-28 Completed University of Polysaccharide 00:00:00 [place] [facility] (groups A, C, Y and Branc h W-135) conjugate vaccine (MCV4P) TDAP 2010-12-28 Completed University of 00:00:00 [facility] Varicella 2010-12-28 Completed University of (varivax)(chicken 00:00:00 [place] [facility]ical pox) Branch Meningococcal 2010-12-28 Completed University of Polysaccharide 00:00:00 [place] [facility] (groups A, C, Y and Branc h W-135) conjugate vaccine (MCV4P) TDAP 2010-12-28 Completed University of 00:00:00 [facility] Varicella 2010-12-28 Completed University of (varivax)(chicken 00:00:00 [place] [facility]ical pox) Branch Meningococcal 2010-12-28 Completed University of Polysaccharide 00:00:00 [place] [facility] (groups A, C, Y and Branc h W-135) conjugate vaccine (MCV4P) TDAP 2010-12-28 Completed University of 00:00:00 [facility] Varicella 2010-12-28 Completed University of (varivax)(chicken 00:00:00 [place] M [facility]ical pox) Branch Meningococcal 2010-12-28 Completed University of Polysaccharide 00:00:00 [place] [facility] (groups A, C, Y and Branc h W-135) conjugate vaccine (MCV4P) TDAP 2010-12-28 Completed University of 00:00:00 [facility] Varicella 2010-12-28 Completed University of (varivax)(chicken 00:00:00 [place] M [facility]ical pox) Branch Meningococcal 2010-12-28 Completed University of Polysaccharide 00:00:00 [place] [facility] (groups A, C, Y and Branc h W-135) conjugate vaccine (MCV4P) TDAP 2010-12-28 Completed University of 00:00:00 [facility] Varicella 2010-12-28 Completed University of (varivax)(chicken 00:00:00 [place] M edical pox) Branch Meningococcal 2010-12-28 Completed University of Polysaccharide 00:00:00 [place] [facility] (groups A, C, Y and Branc h W-135) conjugate vaccine (MCV4P) TDAP 2010-12-28 Completed University of 00:00:00 [facility] Varicella 2010-12-28 Completed University of (varivax)(chicken 00:00:00 [place] M edical pox) Branch Meningococcal 2010-12-28 Completed University of Polysaccharide 00:00:00 [place] [facility] (groups A, C, Y and Branc h W-135) conjugate vaccine (MCV4P) TDAP 2010-12-28 Completed University of 00:00:00 [facility] Varicella 2010-12-28 Completed University of (varivax)(chicken 00:00:00 [place] M edical pox) Branch Meningococcal 2010-12-28 Completed University of Polysaccharide 00:00:00 [place] [facility] (groups A, C, Y and Branc h W-135) conjugate vaccine (MCV4P) TDAP 2010-12-28 Completed University of 00:00:00 [facility] Varicella 2010-12-28 Completed University of (varivax)(chicken 00:00:00 [place] M edical pox) Branch Meningococcal 2010-12-28 Completed University of Polysaccharide 00:00:00 [place] [facility] (groups A, C, Y and Branc h W-135) conjugate vaccine (MCV4P) TDAP 2010-12-28 Completed University of 00:00:00 [facility] Varicella 2010-12-28 Completed University of (varivax)(chicken 00:00:00 [place] M edical pox) Branch Meningococcal 2010-12-28 Completed University of Polysaccharide 00:00:00 [place] [facility] (groups A, C, Y and Branc h W-135) conjugate vaccine (MCV4P) TDAP 2010-12-28 Completed University of 00:00:00 [facility] Varicella 2010-12-28 Completed University of (varivax)(chicken 00:00:00 [place] M [facility]ical pox) Branch Meningococcal 2010-12-28 Completed University of Polysaccharide 00:00:00 [place] [facility] (groups A, C, Y and Branc h W-135) conjugate vaccine (MCV4P) TDAP 2010-12-28 Completed University of 00:00:00 [facility] Varicella 2010-12-28 Completed University of (varivax)(chicken 00:00:00 [place] M edical pox) Branch Meningococcal 2010-12-28 Completed University of Polysaccharide 00:00:00 [place] [facility] (groups A, C, Y and Branc h W-135) conjugate vaccine (MCV4P) TDAP 2010-12-28 Completed University of 00:00:00 [facility] Varicella 2010-12-28 Completed University of (varivax)(chicken 00:00:00 [place] [facility]ical pox) Branch Meningococcal 2010-12-28 Completed University of Polysaccharide 00:00:00 [place] [facility] (groups A, C, Y and Branc h W-135) conjugate vaccine (MCV4P) TDAP 2010-12-28 Completed University of 00:00:00 [facility] Varicella 2010-12-28 Completed University of (varivax)(chicken 00:00:00 [facility] edical pox) Branch DTAP 2002-06-30 Completed University of 00:00:00 [facility] MMR 2002-06-30 Completed University of 00:00:00 [facility] Polio (IPV/OPV) 2002-06-30 Completed Universit y of 00:00:00 [facility] DTAP 2002-06-30 Completed University of 00:00:00 [facility] MMR 2002-06-30 Completed University of 00:00:00 [facility] Polio (IPV/OPV) 2002-06-30 Completed Universit y of 00:00:00 [facility] DTAP 2002-06-30 Completed University of 00:00:00 [facility] MMR 2002-06-30 Completed University of 00:00:00 [facility] Polio (IPV/OPV) 2002-06-30 Completed Universit y of 00:00:00 [facility] DTAP 2002-06-30 Completed University of 00:00:00 [facility] MMR 2002-06-30 Completed University of 00:00:00 [facility] Polio (IPV/OPV) 2002-06-30 Completed [facility]00 [facility] DTAP 2002-06-30 Completed [facility] 00:00:00 [facility] MMR 2002-06-30 Completed [facility] 00:00:00 [facility] Polio (IPV/OPV) 2002-06-30 Completed [facility] 00:00:00 [facility] DTAP 2002-06-30 Completed [facility] 00:00:00 [facility] MMR 2002-06-30 Completed [facility] 00:00:00 [facility] Polio (IPV/OPV) 2002-06-30 Completed [facility] 00:00:00 [facility] DTAP 2002-06-30 Completed [facility] 00:00:00 [facility] MMR 2002-06-30 Completed [facility] 00:00:00 [facility] Polio (IPV/OPV) 2002-06-30 Completed [facility] 00:00:00 [facility] DTAP 2002-06-30 Completed [facility] 00:00:00 [facility] MMR 2002-06-30 Completed [facility] 00:00:00 [facility] Polio (IPV/OPV) 2002-06-30 Completed [facility] 00:00:00 [facility] DTAP 2002-06-30 Completed [facility] 00:00:00 [facility] MMR 2002-06-30 Completed [facility] 00:00:00 [facility] Polio (IPV/OPV) 2002-06-30 Completed [facility] 00:00:00 [facility] DTAP 2002-06-30 Completed [facility] 00:00:00 [facility] MMR 2002-06-30 Completed [facility] 00:00:00 [facility] Polio (IPV/OPV) 2002-06-30 Completed [facility] 00:00:00 [facility] DTAP 2002-06-30 Completed [facility] 00:00:00 [facility] MMR 2002-06-30 Completed [facility] 00:00:00 [facility] Polio (IPV/OPV) 2002-06-30 Completed [facility] 00:00:00 [facility] DTAP 2002-06-30 Completed [facility] 00:00:00 [facility] MMR 2002-06-30 Completed [facility] 00:00:00 [facility] Polio (IPV/OPV) 2002-06-30 Completed [facility] 00:00:00 [facility] DTAP 2002-06-30 Completed [facility] 00:00:00 [facility] MMR 2002-06-30 Completed [facility] 00:00:00 [facility] Polio (IPV/OPV) 2002-06-30 Completed [facility] 00:00:00 [facility] DTAP 2002-06-30 Completed [facility] 00:00:00 [facility] MMR 2002-06-30 Completed [facility] 00:00:00 [facility] Polio (IPV/OPV) 2002-06-30 Completed [facility] 00:00:00 [facility] DTAP 2002-06-30 Completed [facility] 00:00:00 [facility] MMR 2002-06-30 Completed [facility] 00:00:00 [facility] Polio (IPV/OPV) 2002-06-30 Completed [facility] 00:00:00 [facility] HEPATITIS A 2001-01-17 Completed [facility] 00:00:00 [facility] Pneumococcal 7 2001-01-17 Completed [facility] Conjugate, PCV7 00:00:00 [facility] (Prevnar[facility] HEPATITIS A 2001-01-17 Completed [facility] 00:00:00 [facility] Pneumococcal 7 2001-01-17 Completed [facility] Conjugate, PCV7 00:00:00 [facility] (Prevnar7) [facility] HEPATITIS A 2001-01-17 Completed [facility] 00:00:00 [facility] Pneumococcal 7 2001-01-17 Completed [facility] Conjugate, PCV7 00:00:00 [facility] (Prevnar7) [facility] HEPATITIS A 2001-01-17 Completed [facility] 00:00:00 [facility] Pneumococcal 7 2001-01-17 Completed [facility] Conjugate, PCV7 00:00:00 [facility] (Prevnar7) [facility] HEPATITIS A 2001-01-17 Completed [facility] 00:00:00 [facility] Pneumococcal 7 2001-01-17 Completed [facility] Conjugate, PCV7 00:00:00 [facility] (Prevnar7) [facility] HEPATITIS A 2001-01-17 Completed [facility] 00:00:00 [facility] Pneumococcal 7 2001-01-17 Completed [facility] Conjugate, PCV7 00:00:00 [facility] (Prevnar7) [facility] HEPATITIS A 2001-01-17 Completed [facility] 00:00:00 [facility] Pneumococcal 7 2001-01-17 Completed [facility] Conjugate, PCV7 00:00:00 [facility] (Prevnar7) [facility] HEPATITIS A 2001-01-17 Completed [facility] 00:00:00 [facility] Pneumococcal 7 2001-01-17 Completed [facility] Conjugate, PCV7 00:00:00 [facility] (Prevnar7) [facility] HEPATITIS A 2001-01-17 Completed [facility] 00:00:00 [facility] Pneumococcal 7 2001-01-17 Completed [facility] Conjugate, PCV7 00:00:00 [facility] (Prevnar7) [facility] HEPATITIS A 2001-01-17 Completed [facility] 00:00:00 [facility] Pneumococcal 7 2001-01-17 Completed [facility] Conjugate, PCV7 00:00:00 [facility] (Prevnar7) [facility] HEPATITIS A 2001-01-17 Completed [facility] 00:00:00 [facility] Pneumococcal 7 2001-01-17 Completed [facility] Conjugate, PCV7 00:00:00 [facility] (Prevnar7) [facility] HEPATITIS A 2001-01-17 Completed [facility] 00:00:00 [facility] Pneumococcal 7 2001-01-17 Completed [facility] Conjugate, PCV7 00:00:00 [facility] (Prevnar7) [facility] HEPATITIS A 2001-01-17 Completed [facility] 00:00:00 [facility] Pneumococcal 7 2001-01-17 Completed [facility] Conjugate, PCV7 00:00:00 [facility] (Prevnar7) [facility] HEPATITIS A 2001-01-17 Completed [facility] 00:00:00 [facility] Pneumococcal 7 2001-01-17 Completed [facility] Conjugate, PCV7 00:00:00 [facility] (Prevnar7) [facility] HEPATITIS A 2001-01-17 Completed [facility] 00:00:00 [facility] Pneumococcal 7 2001-01-17 Completed [facility] of Conjugate, PCV7 00:00:00 [facility] ical (Prevnar7) Branch DTAP 1998-12-09 Completed [facility] 00:00:00 [facility] HIB 4 Dose Schedule 1998-12-09 Completed [facility]ive rs[facility] 00:00:00 [facility] Polio (IPV/OPV) 1998-12-09 Completed [facility] 00:00:00 [facility] DTAP 1998-12-09 Completed [facility] 00:00:00 [facility] HIB 4 Dose Schedule 1998-12-09 Completed [facility] 00:00:00 [facility] Polio (IPV/OPV) 1998-12-09 Completed [facility] 00:00:00 [facility] DTAP 1998-12-09 Completed [facility] 00:00:00 [facility] HIB 4 Dose Schedule 1998-12-09 Completed [facility] 00:00:00 [facility] Polio (IPV/OPV) 1998-12-09 Completed [facility] 00:00:00 [facility] DTAP 1998-12-09 Completed [facility] 00:00:00 [facility] HIB 4 Dose Schedule 1998-12-09 Completed [facility] 00:00:00 [facility] Polio (IPV/OPV) 1998-12-09 Completed [facility] 00:00:00 [facility] DTAP 1998-12-09 Completed [facility] 00:00:00 [facility] HIB 4 Dose Schedule 1998-12-09 Completed [facility] rs[facility] 00:00:00 [facility] Polio (IPV/OPV) 1998-12-09 Completed [facility] 00:00:00 [facility] DTAP 1998-12-09 Completed [facility] 00:00:00 [facility] HIB 4 Dose Schedule 1998-12-09 Completed [facility] 00:00:00 [facility] Polio (IPV/OPV) 1998-12-09 Completed [facility] 00:00:00 [facility] DTAP 1998-12-09 Completed [facility] 00:00:00 [facility] HIB 4 Dose Schedule 1998-12-09 Completed [facility] of 00:00:00 [facility] Polio (IPV/OPV) 1998-12-09 Completed [facility] 00:00:00 [facility] DTAP 1998-12-09 Completed [facility] 00:00:00 [facility] HIB 4 Dose Schedule 1998-12-09 Completed [facility] 00:00:00 [facility] Polio (IPV/OPV) 1998-12-09 Completed [facility] 00:00:00 [facility] DTAP 1998-12-09 Completed [facility] 00:00:00 [facility] HIB 4 Dose Schedule 1998-12-09 Completed [facility] rs[facility] of 00:00:00 [facility] Polio (IPV/OPV) 1998-12-09 Completed [facility] 00:00:00 [facility] DTAP 1998-12-09 Completed [facility] 00:00:00 [facility] HIB 4 Dose Schedule 1998-12-09 Completed [facility]ive rs[facility] of 00:00:00 [facility] Polio (IPV/OPV) 1998-12-09 Completed [facility] 00:00:00 [facility] DTAP 1998-12-09 Completed [facility] 00:00:00 [facility] HIB 4 Dose Schedule 1998-12-09 Completed [facility] of 00:00:00 [facility] Polio (IPV/OPV) 1998-12-09 Completed [facility] 00:00:00 [facility] DTAP 1998-12-09 Completed [facility] 00:00:00 [facility] HIB 4 Dose Schedule 1998-12-09 Completed [facility] of 00:00:00 [facility] Polio (IPV/OPV) 1998-12-09 Completed [facility] 00:00:00 [facility] DTAP 1998-12-09 Completed [facility] 00:00:00 [facility] HIB 4 Dose Schedule 1998-12-09 Completed [facility] rs[facility] of 00:00:00 [facility] Polio (IPV/OPV) 1998-12-09 Completed [facility] 00:00:00 [facility] DTAP 1998-12-09 Completed [facility] 00:00:00 [facility] HIB 4 Dose Schedule 1998-12-09 Completed [facility] rs[facility] of 00:00:00 [facility] Polio (IPV/OPV) 1998-12-09 Completed [facility] 00:00:00 [facility] DTAP 1998-12-09 Completed [facility] 00:00:00 [facility] HIB 4 Dose Schedule 1998-12-09 Completed [facility] rs[facility] of 00:00:00 [facility] Polio (IPV/OPV) 1998-12-09 Completed [facility] 00:00:00 [facility] MMR 1998-07-20 Completed [facility] 00:00:00 [facility] Polio (IPV/OPV) 1998-07-20 Completed [facility] 00:00:00 [facility] Varicella 1998-07-20 Completed [facility] of (varivax)(chicken 00:00:00 [facility] pox) [facility] MMR 1998-07-20 Completed [facility] 00:00:00 [facility] Polio (IPV/OPV) 1998-07-20 Completed [facility] 00:00:00 [facility] Varicella 1998-07-20 Completed [facility] (varivax)(chicken 00:00:00 [facility] pox) [facility] MMR 1998-07-20 Completed [facility] 00:00:00 [facility] Polio (IPV/OPV) 1998-07-20 Completed [facility] 00:00:00 [facility] Varicella 1998-07-20 Completed [facility] (varivax)(chicken 00:00:00 [facility] pox) [facility] MMR 1998-07-20 Completed [facility] 00:00:00 [facility] Polio (IPV/OPV) 1998-07-20 Completed [facility] 00:00:00 [facility] Varicella 1998-07-20 Completed [facility] (varivax)(chicken 00:00:00 [facility] pox) [facility] MMR 1998-07-20 Completed [facility] 00:00:00 [facility] Polio (IPV/OPV) 1998-07-20 Completed [facility] 00:00:00 [facility] Varicella 1998-07-20 Completed [facility] (varivax)(chicken 00:00:00 [facility] pox) [facility] MMR 1998-07-20 Completed [facility] 00:00:00 [facility] Polio (IPV/OPV) 1998-07-20 Completed [facility] 00:00:00 [facility] Varicella 1998-07-20 Completed [facility] (varivax)(chicken 00:00:00 [facility] pox) [facility] MMR 1998-07-20 Completed [facility] 00:00:00 [facility] Polio (IPV/OPV) 1998-07-20 Completed [facility] 00:00:00 [facility] Varicella 1998-07-20 Completed [facility] (varivax)(chicken 00:00:00 [facility] pox) Branch MMR 1998-07-20 Completed [facility] 00:00:00 [facility] Polio (IPV/OPV) 1998-07-20 Completed [facility] 00:00:00 [facility] Varicella 1998-07-20 Completed [facility] (varivax)(chicken 00:00:00 [facility] pox) [facility] MMR 1998-07-20 Completed [facility] 00:00:00 [facility] Polio (IPV/OPV) 1998-07-20 Completed [facility] 00:00:00 [facility] Varicella 1998-07-20 Completed [facility] (varivax)(chicken 00:00:00 [facility] pox) [facility] MMR 1998-07-20 Completed [facility] 00:00:00 [facility] Polio (IPV/OPV) 1998-07-20 Completed [facility] 00:00:00 [facility] Varicella 1998-07-20 Completed [facility] (varivax)(chicken 00:00:00 [facility] pox) [facility] MMR 1998-07-20 Completed [facility] 00:00:00 [facility] Polio (IPV/OPV) 1998-07-20 Completed [facility] 00:00:00 [facility] Varicella 1998-07-20 Completed [facility] (varivax)(chicken 00:00:00 [facility] pox) [facility] MMR 1998-07-20 Completed [facility] 00:00:00 [facility] Polio (IPV/OPV) 1998-07-20 Completed [facility] 00:00:00 [facility] Varicella 1998-07-20 Completed [facility] (varivax)(chicken 00:00:00 [facility] pox) [facility] MMR 1998-07-20 Completed [facility] 00:00:00 [facility] Polio (IPV/OPV) 1998-07-20 Completed [facility] 00:00:00 [facility] Varicella 1998-07-20 Completed [facility] (varivax)(chicken 00:00:00 [facility] pox) [facility] MMR 1998-07-20 Completed [facility] 00:00:00 [facility] Polio (IPV/OPV) 1998-07-20 Completed [facility] 00:00:00 [facility] Varicella 1998-07-20 Completed [facility] (varivax)(chicken 00:00:00 [facility] pox) Branch MMR 1998-07-20 Completed [facility] 00:00:00 [facility] Polio (IPV/OPV) 1998-07-20 Completed [facility] 00:00:00 [facility] Varicella 1998-07-20 Completed [facility] (varivax)(chicken 00:00:00 [facility] pox) Branch DTAP 1998-05-20 Completed [facility] 00:00:00 [facility] HIB 4 Dose Schedule 1998-05-20 Completed [facility]ive rs[facility] of 00:00:00 [facility] Hep B, Adol or Pedi 1998-05-20 Completed Unive rsity of Dosage 00:00:00 [facility] DTAP 1998-05-20 Completed [facility] 00:00:00 [facility] HIB 4 Dose Schedule 1998-05-20 Completed [facility] rs[facility] of 00:00:00 [facility] Hep B, Adol or Pedi 1998-05-20 Completed Unive rsity of Dosage 00:00:00 [facility] DTAP 1998-05-20 Completed [facility] 00:00:00 [facility] HIB 4 Dose Schedule 1998-05-20 Completed [facility] rs[facility] of 00:00:00 [facility] Hep B, Adol or Pedi 1998-05-20 Completed [facility]ive rsity of Dosage 00:00:00 [facility] DTAP 1998-05-20 Completed [facility] 00:00:00 [facility] HIB 4 Dose Schedule 1998-05-20 Completed Unive [...] 1998-05-20 Completed Unive rsity of Dosage 00:00:00 [facility] DTAP 1998-05-20 Completed [facility] 00:00:00 [facility] HIB 4 Dose Schedule 1998-05-20 Completed [facility] rsity of 00:00:00 [facility] Hep B, Adol or Pedi 1998-05-20 Completed Unive rsity of Dosage 00:00:00 [facility] DTAP 1998-05-20 Completed [facility] 00:00:00 [...] Branch DTAP 1998-05-20 Completed [facility] 00:00:00 [facility] HIB 4 Dose Schedule 1998-05-20 Completed [facility] rs[facility] of 00:00:00 [facility] Hep B, Adol or Pedi 1998-05-20 Completed Unive rsity of Dosage 00:00:00 [facility] DTAP 1998-05-20 Completed [facility] 00:00:00 [facility] HIB 4 Dose Schedule 1998-05-20 Completed [facility]ive rsity of 00:00:00 [facility] Hep B, Adol or Pedi 1998-05-20 Completed Unive rsity of Dosage 00:00:00 [facility] DTAP 1998-05-20 Completed [facility] 00:00:00 [facility] HIB 4 Dose Schedule 1998-05-20 Completed [facility] rs[facility] of 00:00:00 [facility] Hep B, Adol or Pedi 1998-05-20 Completed [facility]ive rsity of Dosage 00:00:00 [facility] DTAP 1998-03-23 Completed [facility] 00:00:00 [facility] HIB 4 Dose Schedule 1998-03-23 Completed [facility] rs[facility] of 00:00:00 [facility] Hep B, Adol or Pedi 1998-03-23 Completed Unive rsity of Dosage 00:00:00 [facility] Polio (IPV/OPV) 1998-03-23 Completed [facility] 00:00:00 [facility] DTAP 1998-03-23 Completed [facility] 00:00:00 [facility] HIB 4 Dose Schedule 1998-03-23 Completed [facility] rs[facility] of 00:00:00 [facility] Hep B, Adol or Pedi 1998-03-23 Completed Unive rsity of Dosage 00:00:00 [facility] Polio (IPV/OPV) 1998-03-23 Completed [facility] 00:00:00 [facility] DTAP 1998-03-23 Completed [facility] 00:00:00 [facility] HIB 4 Dose Schedule 1998-03-23 Completed Unive rsity of 00:00:00 [facility] Hep B, Adol or Pedi 1998-03-23 Completed Unive rsity of Dosage 00:00:00 [facility] Polio (IPV/OPV) 1998-03-23 Completed [facility] 00:00:00 [facility] DTAP 1998-03-23 Completed [facility] 00:00:00 [facility] HIB 4 Dose Schedule 1998-03-23 Completed [facility] rs[facility] of 00:00:00 [facility] Hep B, Adol or Pedi 1998-03-23 Completed Unive rsity of Dosage 00:00:00 [facility] Polio (IPV/OPV) 1998-03-23 Completed [facility] 00:00:00 [facility] DTAP 1998-03-23 Completed [facility] 00:00:00 [facility] HIB 4 Dose Schedule 1998-03-23 Completed [facility] rs[facility] of 00:00:00 [facility] Hep B, Adol or Pedi 1998-03-23 Completed Unive rsity of Dosage 00:00:00 [facility] Polio (IPV/OPV) 1998-03-23 Completed [facility] 00:00:00 [facility] DTAP 1998-03-23 Completed [facility] 00:00:00 [facility] HIB 4 Dose Schedule 1998-03-23 Completed [facility]ive rsity of 00:00:00 [facility] Hep B, Adol or Pedi 1998-03-23 Completed Unive rsity of Dosage 00:00:00 [facility] Polio (IPV/OPV) 1998-03-23 Completed [facility] 00:00:00 [facility] DTAP 1998-03-23 Completed [facility] 00:00:00 [facility] HIB 4 Dose Schedule 1998-03-23 Completed [facility] rsity of 00:00:00 [facility] Hep B, Adol or Pedi 1998-03-23 Completed Unive rsity of Dosage 00:00:00 [facility] Polio (IPV/OPV) 1998-03-23 Completed [facility] 00:00:00 [facility] DTAP 1998-03-23 Completed [facility] 00:00:00 [facility] HIB 4 Dose Schedule 1998-03-23 Completed [facility] of 00:00:00 [facility] Hep B, Adol or Pedi 1998-03-23 Completed Unive rsity of Dosage 00:00:00 [facility] Polio (IPV/OPV) 1998-03-23 Completed [facility] 00:00:00 [facility] DTAP 1998-03-23 Completed [facility] 00:00:00 [facility] HIB 4 Dose Schedule 1998-03-23 Completed [facility]ive rsity of 00:00:00 [facility] Hep B, Adol or Pedi 1998-03-23 Completed [facility]ive rsity of Dosage 00:00:00 [facility] Polio (IPV/OPV) 1998-03-23 Completed [facility] 00:00:00 [facility] DTAP 1998-03-23 Completed [facility] 00:00:00 [facility] HIB 4 Dose Schedule 1998-03-23 Completed [facility] rs[facility] of 00:00:00 [facility] Hep B, Adol or Pedi 1998-03-23 Completed [facility]ive rsity of Dosage 00:00:00 [facility] Polio (IPV/OPV) 1998-03-23 Completed [facility] 00:00:00 [facility] DTAP 1998-03-23 Completed [facility] 00:00:00 [facility] HIB 4 Dose Schedule 1998-03-23 Completed [facility]ive rs[facility] of 00:00:00 [facility] Hep B, Adol or Pedi 1998-03-23 Completed [facility]ive rsity of Dosage 00:00:00 [facility] Polio (IPV/OPV) 1998-03-23 Completed [facility] 00:00:00 [facility] DTAP 1998-03-23 Completed [facility] 00:00:00 [facility] HIB 4 Dose Schedule 1998-03-23 Completed [facility] rs[facility] of 00:00:00 [facility] Hep B, Adol or Pedi 1998-03-23 Completed [facility]ive [facility]ity of Dosage 00:00:00 [facility] Polio (IPV/OPV) 1998-03-23 Completed [facility] 00:00:00 [facility] DTAP 1998-03-23 Completed [facility] 00:00:00 [facility] HIB 4 Dose Schedule 1998-03-23 Completed [facility] of 00:00:00 [facility] Hep B, Adol or Pedi 1998-03-23 Completed [facility]ive rsity of Dosage 00:00:00 [facility] Polio (IPV/OPV) 1998-03-23 Completed [facility] 00:00:00 [facility] DTAP 1998-03-23 Completed [facility] 00:00:00 [facility] HIB 4 Dose Schedule 1998-03-23 Completed [facility] rsity of 00:00:00 [facility] Hep B, Adol or Pedi 1998-03-23 Completed [facility]ive [facility] of Dosage 00:00:00 [facility] Polio (IPV/OPV) 1998-03-23 Completed [facility] 00:00:00 [facility] DTAP 1998-03-23 Completed [facility] 00:00:00 [facility] HIB 4 Dose Schedule 1998-03-23 Completed [facility] of 00:00:00 [facility] Hep B, Adol or Pedi 1998-03-23 Completed [facility]ive [facility]ity of Dosage 00:00:00 [facility] Polio (IPV/OPV) 1998-03-23 Completed [facility] 00:00:00 [facility] DTAP 1997 Completed [facility] 00:00:00 [facility] HIB 4 Dose Schedule 1997 Completed Un[facility] 00:00:00 [facility] Hep B, Adol or Pedi 1997 Completed [facility] Dosage 00:00:00 [place] [facility] Polio (IPV/OPV) 1997 Completed Universit [facility] of 00:00:00 [facility] DTAP 1997 Completed University of 00:00:00 [facility] HIB 4 Dose Schedule 1997 Completed Unive rsity of 00:00:00 [facility] Hep B, Adol or Pedi 1997 Completed Unive rsity of Dosage 00:00:00 [facility] Polio (IPV/OPV) 1997 Completed Universit y of 00:00:00 [facility] DTAP 1997 Completed University of 00:00:00 [facility] HIB 4 Dose Schedule 1997 Completed Unive rsity of 00:00:00 [facility] Hep B, Adol or Pedi 1997 Completed Unive rsity of Dosage 00:00:00 [facility] Polio (IPV/OPV) 1997 Completed Universit y of 00:00:00 [facility] DTAP 1997 Completed University of 00:00:00 [facility] HIB 4 Dose Schedule 1997 Completed Unive rsity of 00:00:00 [facility] Hep B, Adol or Pedi 1997 Completed Unive rsity of Dosage 00:00:00 [facility] Polio (IPV/OPV) 1997 Completed Universit y of 00:00:00 [facility] DTAP 1997 Completed University of 00:00:00 [facility] HIB 4 Dose Schedule 1997 Completed Unive rsity of 00:00:00 [facility] Hep B, Adol or Pedi 1997 Completed Unive rsity of Dosage 00:00:00 [facility] Polio (IPV/OPV) 1997 Completed Universit y of 00:00:00 [facility] DTAP 1997 Completed University of 00:00:00 [facility] HIB 4 Dose Schedule 1997 Completed Unive rsity of 00:00:00 [facility] Hep B, Adol or Pedi 1997 Completed Unive rsity of Dosage 00:00:00 [facility] Polio (IPV/OPV) 1997 Completed Universit y of 00:00:00 [facility] DTAP 1997 Completed University of 00:00:00 [facility] HIB 4 Dose Schedule 1997 Completed Unive rsity of 00:00:00 [facility] Hep B, Adol or Pedi 1997 Completed Unive rsity of Dosage 00:00:00 [facility] Polio (IPV/OPV) 1997 Completed Universit y of 00:00:00 [facility] DTAP 1997 Completed University of 00:00:00 [facility] HIB 4 Dose Schedule 1997 Completed Unive rsity of 00:00:00 [facility] Hep B, Adol or Pedi 1997 Completed Unive rsity of Dosage 00:00:00 [facility] Polio (IPV/OPV) 1997 Completed Universit y of 00:00:00 [facility] DTAP 1997 Completed University of 00:00:00 [facility] HIB 4 Dose Schedule 1997 Completed Unive rsity of 00:00:00 [facility] Hep B, Adol or Pedi 1997 Completed Unive rsity of Dosage 00:00:00 [facility] Polio (IPV/OPV) 1997 Completed Universit y of 00:00:00 [facility] DTAP 1997 Completed University of 00:00:00 [facility] HIB 4 Dose Schedule 1997 Completed Unive rsity of 00:00:00 [facility] Hep B, Adol or Pedi 1997 Completed Unive rsity of Dosage 00:00:00 [facility] Polio (IPV/OPV) 1997 Completed Universit y of 00:00:00 [facility] DTAP 1997 Completed University of 00:00:00 [facility] HIB 4 Dose Schedule 1997 Completed Unive rsity of 00:00:00 [facility] Hep B, Adol or Pedi 1997 Completed Unive rsity of Dosage 00:00:00 [facility] Polio (IPV/OPV) 1997 Completed Universit y of 00:00:00 [facility] DTAP 1997 Completed University of 00:00:00 [facility] HIB 4 Dose Schedule 1997 Completed Unive rsity of 00:00:00 [facility] Hep B, Adol or Pedi 1997 Completed Unive rsity of Dosage 00:00:00 [facility] Polio (IPV/OPV) 1997 Completed Universit y of 00:00:00 [facility] DTAP 1997 Completed University of 00:00:00 [facility] HIB 4 Dose Schedule 1997 Completed Unive rsity of 00:00:00 [facility] Hep B, Adol or Pedi 1997 Completed Unive rsity of Dosage 00:00:00 [facility] Polio (IPV/OPV) 1997 Completed Universit y of 00:00:00 [facility] DTAP 1997 Completed University of 00:00:00 [facility] HIB 4 Dose Schedule 1997 Completed Unive rsity of 00:00:00 [facility] Hep B, Adol or Pedi 1997 Completed Unive rsity of Dosage 00:00:00 [facility] Polio (IPV/OPV) 1997 Completed Universit y of 00:00:00 [facility] DTAP 1997 Completed University of 00:00:00 [facility] HIB 4 Dose Schedule 1997 Completed Unive rsity of 00:00:00 [facility] Hep B, Adol or Pedi 1997 Completed Unive rsity of Dosage 00:00:00 [facility] Polio (IPV/OPV) 1997 Completed Universit y of 00:00:00 [facility] Vital Signs Vital Name Observation Time Observation Value Comments Source Systolic blood 2023-05-17 16:40:00 112 mm[Hg] Univer sity of pressure [facility] Diastolic blood 2023-05-17 16:40:00 72 mm[Hg] Unive rsity of pressure [facility] Heart rate 2023-05-17 16:40:00 89 /min Universi ty [facility] Respiratory rate 2023-05-17 16:40:00 18 /min Univ ersity of [facility] Body height 2023-05-17 16:40:00 160 cm Universi ty [facility] Body weight 2023-05-17 16:40:00 65.318 kg [facility] ty [facility] BMI 2023-05-17 16:40:00 25.51 kg/m2 Universi ty [facility] Systolic blood 2023-04-11 15:23:00 108 mm[Hg] Univer sity of pressure [facility] Diastolic blood 2023-04-11 15:23:00 71 mm[Hg] Unive rsity of pressure [facility] Heart rate 2023-04-11 15:23:00 77 /min Universi ty [facility] Body temperature 2023-04-11 15:23:00 36.78 Eryn Univ ersity of [facility] Respiratory rate 2023-04-11 15:23:00 18 /min Univ ersity of [facility] Body height 2023-04-11 15:23:00 160 cm [facility] Body weight 2023-04-11 15:23:00 63.866 kg [facility]i [facility] BMI 2023-04-11 15:23:00 24.94 kg/m2 [facility] Oxygen saturation in 2023-04-11 15:23:00 98 /min University of Arterial blood by [facility] Systolic blood 2023-03-21 16:08:00 97 mm[Hg] Univer sity of pressure [facility] Diastolic blood 2023-03-21 16:08:00 63 mm[Hg] Unive rsity of pressure [facility] Heart rate 2023-03-21 16:08:00 75 /min Universi ty [facility] Body temperature 2023-03-21 16:08:00 36.67 Eryn Univ ersity of [facility] Respiratory rate 2023-03-21 16:08:00 16 /min Univ ersity of [facility] Body weight 2023-03-21 16:08:00 65.318 kg Universi ty [facility] BMI 2023-03-21 16:08:00 26.34 kg/m2 [facility] Oxygen saturation in 2023-03-21 16:08:00 98 /min University of Arterial blood by [facility] Pulse oximetry Branch Systolic blood 2023-02-06 21:38:00 124 mm[Hg] Univer sity of pressure [facility] Diastolic blood 2023-02-06 21:38:00 73 mm[Hg] Unive rsity of pressure [facility] Heart rate 2023-02-06 21:38:00 88 /min [facility]i ty [facility] Body temperature 2023-02-06 21:38:00 37.33 Eryn Univ ersity of [facility] Respiratory rate 2023-02-06 21:38:00 17 /min Univ ersity of [facility] Body weight 2023-02-06 21:38:00 64.501 kg [facility] BMI 2023-02-06 21:38:00 26.01 kg/m2 [facility] Oxygen saturation in 2023-02-06 21:38:00 99 /min University of Arterial blood by [facility] Pulse oximetry Branch Systolic blood 2022-05-19 19:39:00 114 mm[Hg] Univer sity of pressure [facility] Diastolic blood 2022-05-19 19:39:00 74 mm[Hg] Unive rsity of pressure [facility] Heart rate 2022-05-19 19:39:00 70 /min [facility] Respiratory rate 2022-05-19 19:39:00 20 /min [facility] Body height 2022-05-19 19:39:00 157.5 cm [facility] Body weight 2022-05-19 19:39:00 62.37 kg [facility] BMI 2022-05-19 19:39:00 25.15 kg/m2 [facility] Oxygen saturation in 2022-05-19 19:39:00 94 /min [facility] Arterial blood by [facility] Pulse oximetry [place] Procedures Procedure Date / Time Performed Performing Clinician Sour e POCT TEST 2023-05-17 00:00:00 Ebenezer Araujo [facility] DISCLOSURE AND 2023-04-11 05:01:00 Doctor Unassigned, No [facility] CONSENT, MEDICAL AND Name Medical [facility] SURGICAL PROCEDURES ASSIGNMENT OF BENEFITS 2023-02-06 21:31:42 Doctor Unassigned, No [facility] Medical [place] Encounters Start End Encounter Admission Attending Care Care Encounter Source Date/Time Date/Time Type Type Clinicians Facility Department ID 2021-12-31 Outpatient X [facility] DAGO [id number] Univers 00:18:56 ity of [facility] 2021-07-30 Outpatient P LARON MOONEY [facility] DAOG [id number] Univers 15:52:47 ity of [facility] 2021-07-30 Emergency [facility] [id number] Univers 14:32:12 ity of [facility] 2021-07-29 Emergency [facility] [id number] Univers 22:12:35 ity of [facility] 2023-05-18 2023-05-18 Telephone MARCIO Araujo 1.2.840.11 [id number] Univers 00:00:00 00:00:00 Ebenezer ROSALES 350.1.13.10 [place] [facility] [id number] [facility] 134 Branch 2023-05-17 2023-05-17 General Activities Therapist Lab, Ang - Db [facility] 1.2.840.1 [id number] Univers 12:15:00 12:30:00 Visit Ebenezer Araujo 350.1.13.1 0 ity of [facility] 4.2.7.2.686 Danny as YARIEL?BLEA [id number] Ar dical [facility] [address] [place] MEDICAL OFFICE BUILDING 2023-05-17 2023-05-17 Outpatient R JUANPABLOEBENEZER [facility] B [id number] Univers 11:30:00 11:53:18 TRIEBENEZER MOROCHO ity [facility] 2023-05-17 2023-05-17 Office [facility] 1.2.840.114 [id number] Univers 11:30:00 11:53:18 Visit Ebenezer ROSALES 350.1.13.10 it y [place] [id number] [address] 2023-05-14 2023-05-14 Outpatient R YADY [facility] B [id number] Univers 13:45:00 13:45:[address] [facility] 2023-04-11 2023-04-11 Outpatient R LARON MOONEY [facility] [id number] Univers 09:00:00 10:33:03 ity [facility] 2023-04-11 2023-04-11 Office Vinicio [facility] 1.2.122.340 [id number] Univers 09:00:00 10:33:03 Visit Pietro GUERRERO 350.1.13.10 i ty [place] [id number] [facility] [address] [facility] 2023-04-11 2023-04-11 Orders Doctor LESLEE 1.2.840.114 [id number] Univers 00:00:00 00:00:00 Only Unassigned, DEIRDRE 350.1.13.10 ity of [place] [facility] 4.2.7.2.686 Danny as [id number] [place] [address] Branch 2023-03-21 2023-03-21 Outpatient R ARABELLA [facility] [id number] Univers 11:00:00 11:25:56 KENYA ity [facility] 2023-03-21 2023-03-21 Urgent Kenya Bell [facility] 1.2.840.11 [id number] Univers 11:00:00 11:25:56 Care Unknown, Attending [facility] 350.1.13.10 ity of [place] 4.2.7.2.686 Danny as YARIEL?BLEA [id number] [address] MEDICAL OFFICE [facility] 2023-02-06 2023-02-06 Urgent ChandanYvan reddy [facility] 1.2.840.114 [id number] Univers 16:40:00 17:00:00 Care Unknown, Attending [facility] 350.1.13.10 ity of [place] 4.2.7.2.686 Danny as YARIEL?BLEA [id number] [address] 2023-02-06 2023-02-06 Outpatient R DAIJA [facility] [id number] Univers 16:40:00 16:40:00 [facility] 2023-[facility]-06 2023-02-06 Orders Doctor LESLEE 1.2.840.114 [id number] Univers 00:00:00 00:00:00 Only Unassigned, DEIRDRE 350.1.13.10 ity of [place] [facility] 4.2.7.2.686 Danny as [id number] [address] 2022-09-12 2022-09-12 Outpatient R LARON MOONEY [facility] [id number] Univers 13:30:00 13:30:00 ity of [facility] 2022-06-14 2022-06-14 Telephone Betzy [facility] 1.2.757.896 [id number] Univers 00:00:00 00:00:00 Lisa GUERRERO 350.1.13.10 ity [place] [id number] [facility] 0[address] [facility] 2022-06-01 2022-06-01 Telephone Betzy [facility] 1.2.513.433 [id number] Univers 00:00:00 00:00:00 Sendil Oscar GUERRERO 350.1.13.10 it[place] [id number] Ar dical NAL 059 [facility] 2022-05-26 2022-05-26 Telephone Betzy [facility] 1.2.044.740 [id number] Univers 00:00:00 00:00:00 Sendil Oscar GUERRERO 350.1.13.10 ity [place] [id number] [facility] 085 [facility] 2022-05-25 2022-05-25 Outpatient R BETZY [facility] [id number] Univers 08:30:00 23:59:00 SENDIL ity [facility] 2022-05-25 2022-05-25 Outpatient R BETZY [facility] [id number] Univers 08:30:00 08:30:00 SENDIL ity [facility] 2022-05-19 2022-05-19 Outpatient R BETZY [facility] [id number] Univers 13:00:00 23:59:00 SENDIL luana [facility] 2022-05-19 2022-05-19 [facility] 1.2.840.114 [id number] Univers 15:00:00 15:30:00 Visit Sendmike GUERRERO 350.1.13.10 it[place] [id number] [address] 2022-05-19 2022-05-19 Outpatient R BETZY [facility] [id number] Univers 15:00:00 15:00:00 SENDIL ity [facility] 2022-05-16 2022-05-16 Orders Doctor CAMILO 1.2.840.114 [id number] Univers 00:00:00 00:00:00 Only Unassigned, DEIRDRE 350.1.13.10 ity of [place] [facility] 4.2.7.2.686 Danny as [id number] [address] 2022-05-15 2022-05-15 [facility] [id number] Univers 13:20:00 13:33:23 NEERU ity of [facility] 2022-05-15 2022-05-15 [facility] 1.2.840.114 [id number] Univers 13:20:00 13:33:23 Care [facility] 350.1.13.10 it y of [facility] 4.2.7.2.686 Danny as YARIEL?BLEA [id number] [facility] [address] [place] MEDICAL OFFICE BUILD[facility] 2022-05-15 2022-05-15 Telephone Betzy [facility] 1.2.190.211 [id number] Univers 00:00:00 00:00:00 Lisa GUERRERO 350.1.13.10 it[place] [id number] Ar dicco NAL 0[address] [facility] 2022-05-14 2022-05-14 Emergency [facility] 1.2.366.025 [id number] Univers 15:07:00 17:38:00 Stephanie [facility] 350.1.13.10 [place] [id number] [facility] [address] [place] 2022-05-14 2022-05-14 Emergency X [facility] [id number] Univers 15:07:00 17:38:00 YOMILI ity of [facility] 2022-05-14 2022-05-14 Case LESLEE Bo 1.2.840.114 [id number] Univers 00:00:00 00:00:00 Management Lisa GILMORE 350.1.13.10 ity of [facility] 4.2.7.2.686 Danny as [id number] [facility] [address] [place] 2022-03-29 2022-03-29 Telephone Laron Mooney [facility] 1.2.840.114 [id number] Univers 00:00:00 00:00:00 Pietro GUERRERO 350.1.13.10 i ty [place] [id number] [address] 2022-03-29 2022-03-29 Orders Doctor LESLEE 1.2.840.114 [id number] Univers 00:00:00 00:00:00 Only Unassigned, DEIRDRE 350.1.13.10 ity of [facility] 4.2.7.2.686 Danny as [id number] [address] 2022-03-07 2022-03-07 Office Vinicio [facility] 1.2.435.089 [id number] Univers 13:00:00 13:50:06 Visit Cam YOLANDA 350.1.13.10 i ty [place] [id number] [address] 2022-03-07 2022-03-07 Outpatient R LARON MOONEY [facility] [id number] Univers 13:00:00 13:50:06 ity of [facility] 2022-03-07 2022-03-07 Outpatient R VINICIO LARON [facility] [id number] Univers 13:00:00 13:00:00 ity of [facility] 2022-03-07 2022-03-07 Orders Doctor LESLEE 1.2.840.114 [id number] Univers 00:00:00 00:00:00 Only Unassigned, DEIRDRE 350.1.13.10 ity of [facility] 4.2.7.2.686 Danny as [id number] [address] 2022-02-13 2022-02-13 Outpatient R LARON MOONEY [facility] [id number] Univers 10:45:00 13:26:51 ity of [facility] 2022-02-13 2022-02-13 Routine Vinicio [facility] 1.2.391.717 [id number] Univers 10:45:00 13:26:51 Cam ANGLEGERTRUDE 350.1.13.10 it[place] of [place] [id number] [address] 2022-01-30 2022-01-31 Inpatient P VINICIO [facility] DAGO [id number] Univers 05:46:00 17:00:00 ity of [facility] 2022-01-30 2022-01-31 Hospital Laron Mooney [facility] 1.2.840.114 [id number] Univers 05:46:00 17:00:00 Encounter Pietro GUERRERO 350.1.13.10 it[place] [id number] [facility] 083 Branch 2022-01-30 2022-01-30 Surgery Laron Mooney [facility] 1.2.216.074 [id number] Univers 08:00:00 09:29:00 Cam YOLANDA 350.1.13.10 i ty [place] [id number] [facility] 013 Branch 2022-01-28 2022-01-28 General Activities Therapist Emmanuel, Adc Lab Main [place] 1.2.8 40.114 [id number] Univers 11:15:00 11:30:00 Visit Laron Mooney Pietro GUERRERO 350.1.13.10 [place].2.[place] [id number] Ar dical NAL 353 [facility] 2022-01-28 2022-01-28 Outpatient R VINICIO LARON [facility] [id number] Univers 11:15:00 11:15:00 ity of [facility] 2022-01-28 2022-01-28 Laboratory Only, Adc Test [place] 1.2.840. 114 [id number] Univers 11:00:00 11:15:00 Only Laron MooneyGERTRUDE 350.1.13.10 it[place] [id number] [facility] 353 [address] 2022-01-28 2022-01-28 Orders Doctor LESLEE 1.2.840.114 [id number] Univers 00:00:00 00:00:00 Only Unassigned, DEIRDRE 350.1.13.10 ity of [place] [facility] 4.2.7.2.686 Danny as [id number] [facility] 009 Branch 2022-01-25 2022-01-25 Routine Laron Mooney Pietro [facility] 1.2.840.114 [id number] Univers 15:30:00 15:45:00 Anny Ybarra [place] 350.1.13.10 ity of [place] 4[place].2.[place] [id number] Ar dical NAL [address] [place] [address] 2022-01-25 2022-01-25 Outpatient R BRANDIEGOMEZCLAY [facility] [id number] Univers 15:30:00 15:30:00 ANNY ity [facility] 2022-01-18 2022-01-18 [facility] 1.2.004.856 [id number] Univers 13:00:00 13:36:58 Cam [place] 350.1.13.10 ity of [place] [id number] [address] 2022-01-18 2022-01-18 Outpatient R VINICIO [facility] [id number] Univers 13:00:00 13:36:58 ity of [facility] 2022-01-18 2022-01-18 Outpatient R VINICIO [facility] [id number] Univers 13:00:00 13:00:00 ity of [facility] 2022-01-11 2022-01-11 Outpatient R VINICIO [facility] [id number] Univers 14:00:00 14:54:05 ity of [facility] 2022-01-11 2022-01-11 [facility] 1.2.196.047 [id number] Univers 14:00:00 14:54:05 Cam [place] 350.1.13.10 ity of [place] 4[place]2.[place] [id number] Ar dic[address] 2022-01-11 2022-01-11 Orders Doctor LESLEE 1.2.840.114 [id number] Univers 00:00:00 00:00:00 Only Unassigned, DEIRDRE 350.1.13.10 ity of [place] [facility] 4.2.7.2.686 Danny as [id number] [address] 2022-01-02 2022-01-02 Outpatient Alycia YBARRA [facility] [id number] Univers 16:15:00 16:47:19 ANNY gill [facility] 2022-01-02 2022-01-02 Routine Laron Mooney [facility] 1.2.840.114 [id number] Univers 16:15:00 16:47:19 Anny Ybarra 350.1.13.10 ity of [place] [id number] [facility] [address] [facility] 2021-12-30 2021-12-30 Outpatient X RUTH, [facility] DAGO [id number] Univers 18:12:00 23:05:00 JENNIFER gill [facility] 2021-12-30 2021-12-30 Emergency GlendoJaswant lou [facility] 1.2. 840.114 [id number] Univers 18:12:00 23:05:00 Jennifer Weldon 350.1.13.10 it[place] [id number] [facility] [address] [place] 2021-12-30 2021-12-30 Telephone Laron Mooney [facility] 1.2.840.114 [id number] Univers 00:00:00 00:00:00 Pietro GUERRERO 350.1.13.10 i ty [place] 4[place] [id number] [facility] 134 [facility] 2021-12-30 2021-12-30 Orders Doctor LESLEE 1.2.840.114 [id number] Univers 00:00:00 00:00:00 Only Unassigned, DEIRDRE 350.1.13.10 ity of [place] [facility] 4.2.7.2.686 Danny as [id number] [facility] [address] [place] 2021-12-26 2021-12-26 Outpatient Alycia YBARRA [facility] [id number] Univers 10:30:00 10:30:00 ANNY gill [facility] 2021-12-12 2021-12-12 Outpatient R LARON MOONEY [facility] [id number] Univers 13:15:00 15:26:50 ity of [facility] 2021-12-12 2021-12-12 Routine Laron Mooney [facility] 1.2.698.671 [id number] [facility] [place] 13:15:00 15:26:50 Cam [place] 350.1.13.10 ity of [place] [id number] Me dical NAL [address] [place] [address] 2021-12-12 2021-12-12 Routine Laron Mooney [facility] 1.2.242.708 [id number] [facility] [place] 13:15:00 15:26:50 Cam [place] 350.1.13.10 ity of [place] 4[place] [id number] Ar dical NAL [address] [place] [address] 2021-12-12 2021-12-12 Telephone Annie Mooneyen [facility] 1.2.840.114 [id number] Univers 00:00:00 00:00:00 Cam [place] 350.1.13.10 i ty [facility] 4.[place] [id number] Ar dical NAL [address] [place] [address] 2021-12-05 2021-12-05 Case Amada [facility] 1.2.847.516 [id number] [facility] [place] 00:00:00 00:00:00 Management Anny GUERRERO 350.1.13.10 [facility] 4[place] [id number] Ar dical NAL [address] [place] [address] 2021-11-30 2021-11-30 Outpatient R AMADA WIJOSEPH [facility] CENTER [id number] [facility] 14:45:00 14:57:17 ANNY ity of [facility] 2021-11-30 2021-11-30 Routine Amada [facility] 1.2.516.648 [id number] [facility] 14:45:00 14:57:17 Annyalicia GUERRERO 350.1.13.10 ity of [place] [phone] Ar dical NAL [address] [place] [address] 2021-11-13 2021-11-13 Case Laron Mooney [facility] 1.2.401.415 [id number] Univers 00:00:00 00:00:00 Management Pietro YOLANDA 350.1.13.10 ity of [place] [phone] Ar dical NAL 134 [facility] 2021-11-09 2021-11-09 General Activities Therapist 2, Adc Lab [facility] 1.2.840.114 [id number] Univers 14:00:00 14:00:00 Visit Laron Mooney 350.1.13.10 ity of [place] [phone] Ar dical NAL 353 [facility] 2021-11-09 2021-11-09 Outpatient R LARON MOONEY [facility] [id number] Univers 13:00:00 13:53:41 ity of [facility] 2021-11-09 2021-11-09 Routine Vinicio Laron [facility] 1.2.824.610 [id number] Univers 13:00:00 13:53:41 Pietro GUERRERO 350.1.13.10 ity of [place] [phone] Ar dical NAL 134 [facility] 2021-10-24 2021-10-24 General Activities Therapist Ultrasound, [facility] 1.2 .840.114 [id number] Univers 11:15:00 12:00:00 Visit Jose Infante PAROLE DIRECTOR 350.1.13.10 ity of REGIONAL 4.2.7.2.686 Danny as MATERNAL [phone] Med ical & CHILD [address] [place] [address] 2021-10-24 2021-10-24 Outpatient P JOSE INFANTE [facility] [id number] Univers 11:15:00 11:15:00 JOSE INFANTE [facility] 2021-10-14 2021-10-14 Outpatient R LARON MOONEY [facility] [id number] Univers 11:30:00 12:37:28 ity [facility] 2021-10-14 2021-10-14 Routine Mooney, [facility] 1.2.840.114 [id number] Univers 11:30:00 12:37:28 Cam ABIMAEL 350.1.13.10 i ty of Visit [place] [phone] [address] 2021-09-19 2021-09-19 Case Amada [facility] 1.2.941.747 [id number] [id number] Univers 00:00:00 00:00:00 Management Anny POSEYGERTRUDE 350.1.13.10 ity [facility] [place] [phone] Ar dical [address] 2021-09-16 2021-09-16 Outpatient R VINICIO [facility] [id number] Univers 11:15:00 11:43:31 ity [facility] 2021-09-16 2021-09-16 Routine Vinicio [facility] 1.2.840.114 [id number] Univers 11:15:00 11:43:31 Pietro ROSALES 350.1.13.10 i ty of Visit [place] [id number] [address] 2021-09-16 2021-09-16 Outpatient R MOONEY [facility] [id number] Univers 11:15:00 11:15:00 ity [facility] 2021-09-15 2021-09-15 Outpatient P [facility] [id number] Univers 12:00:00 12:00:00 ity [facility] 2021-09-12 2021-09-12 General Activities Therapist [facility]trasound, [facility] 1.2 .840.114 [id number] Univers 12:23:27 13:23:27 Visit Herbert Colby PAROLE DIRECTOR 350.1. 13.10 ity [facility] 4.2.7.2.686 Danny as MATERNAL [phone] [facility] ical & CHILD [address] [place] [address] 2021-09-12 2021-09-12 Outpatient P YAMILA [facility] [id number] Univers 12:30:00 12:30:00 LINSEY it of HERBERT Shah [facility] 2021-09-12 2021-09-12 Outpatient P [facility] [id number] Univers 12:00:00 12:00:00 ity [facility] 2021-09-12 2021-09-12 Outpatient P YAMILA [facility] [id number] Univers 08:00:00 08:00:00 HANNALISSETRIAI it y of HERBERT Shah [facility] 2021-09-07 2021-09-07 Telephone [facility] 1.2.840.114 [id number] Univers 00:00:00 00:00:00 Pietro GUERRERO 350.1.13.10 i ty of [place] [phone] Ar dical NAL 134 [facility] 2021-08-24 2021-08-24 General Activities Therapist 2, Adc Lab [facility] 1.2.840.114 [id number] Univers 13:07:21 15:23:43 Visit Laron Mooney 350.1.13.10 [facility] [place] [phone] [facility] 353 [facility] 2021-08-24 2021-08-24 Outpatient R [facility] [id number] Univers 13:15:00 [facility] 2021-08-24 2021-08-24 Outpatient R VINICIO LARON [facility] [id number] Univers 13:15:00 [facility] 2021-08-19 2021-08-19 Routine Vinicio [facility] 1.2.840.114 [id number] Univers 11:21:36 12:04:28 Pietro ROSALES 350.1.13.10 i ty of Visit [place] 4[place] [id number] [address] 2021-08-19 2021-08-19 Outpatient R LARON MOONEY [facility] [id number] Univers 10:15:00 12:04:28 ity [facility] 2021-08-02 2021-08-02 Telephone Laron Mooney [facility] 1.2.840.114 [id number] Univers 00:00:00 00:00:00 Pietro GUERRERO 350.1.13.10 i ty [facility] 4.2.[place] [phone] Ar dical NAL 134 [facility] 2021-07-27 2021-07-27 Case Amada [facility] 1.2.699.714 [id number] Univers 00:00:00 00:00:00 Management Anny Guerrero 350.1.13.10 ity of [place] [phone] Ar dical nal 134 [facility] 2021-07-26 2021-07-26 Routine Amada [facility] 1.2.840.114 [id number] Univers 11:20:43 11:54:36 Anny Rosales 350.1.13.10 i ty of Visit [place]'s 4.2.7.2.[place] [phone] [address] 2021-07-26 2021-07-26 Outpatient R AMADA [facility] [id number] Univers 11:15:00 [facility] 2021-07-[facility] 2021-07-25 Outpatient R AMADA [facility] [id number] Univers 11:00:00 11:00:00 ANNY [facility] 2021-07-20 2021-07-20 Outpatient R [facility] [id number] Univers 11:00:00 [facility] 2021-07-20 2021-07-20 General Activities Therapist 2, Adc Lab [facility] 1.2.840.114 [id number] Univers 09:33:12 09:38:55 Visit MooneyAnniedena Guerrero 350.1.13.10 ity of [place].2.[place] [phone] Ar dical nal 353 [facility] 2021-07-20 2021-07-20 Outpatient R LARON MOONEY [facility] [id number] Univers 09:30:00 09:30:00 ity of [facility] 2021-07-20 2021-07-20 Orders Doctor LESLEE 1.2.840.114 [id number] Univers 00:00:00 00:00:00 Only Unassigned, DEIRDRE 350.1.13.10 ity of [place] [facility] 4.2.7.2.686 Danny as [phone] [facility] [address] [place] 2021-07-12 2021-07-12 Telephone Laron Mooney [facility] 1.2.840.114 [id number] Univers 00:00:00 00:00:00 Cam Yolanda 350.1.13.10 i ty of [place]2.[place] [phone] Ar dic[address] 2021-06-30 2021-06-30 Case Amada WIJOSEPH 1.2.945.049 [id number] Univers 00:00:00 00:00:00 Management Anny Guerrero 350.1.13.10 ity of [place] [phone] Ar dicco nal [address] [place] [address] 2021-06-27 2021-06-27 Initial Laron Mooney [facility] 1.2.720.126 [id number] Univers 12:56:44 14:08:53 Pietro Guerrero 350.1.13.10 ity of Visit [place].2.[place] [phone] Ar dic[address] 2021-06-27 2021-06-27 Outpatient R LARON MOONEY [facility] [id number] Univers 14:00:00 14:00:00 ity of [facility] 2021-06-27 2021-06-27 Orders Doctor LESLEE 1.2.840.114 [id number] Univers 00:00:00 00:00:00 Only Unassigned, DEIRDRE 350.1.13.10 ity of [place] [facility] 4.2.7.2.686 Danny as [phone] [facility] [address] [place] 2021-06-17 2021-06-17 Telephone Chepe Mcmillan 1.2.840.114 [id number] Univers 00:00:00 00:00:00 , Lisa Vance 350.1.13.10 ity of [place] [phone] [address] 2021-06-13 2021-06-13 Outpatient R LARON MOONEY [facility] [id number] Univers 10:00:00 10:00:00 ity [facility] 2021-05-26 2021-05-26 Outpatient R VINICIO [facility] [id number] Univers 08:00:00 08:00:00 ity [facility] 2020-11-25 2020-11-25 Outpatient R VINICIO [facility] [id number] Univers 10:30:00 10:30:00 ity [facility] 2020-11-23 2020-11-23 Routine Vinicio [facility] 1.2.362.101 [id number] Univers 14:01:45 14:34:40 Cam [place] 350.1.13.10 ity of Visit [place]2.[place].2.[place] [phone] Ar dical [address] 2020-11-23 2020-11-23 Routine Laron Mooney [facility] 1.2.231.390 [id number] 14:01:45 14:34:40 Cam [place] 350.1.13.10 Visit [place] 4.2.7.2.686 Professio [phone] [address] 2020-11-23 2020-11-23 Outpatient R LARON MOONEY [facility] [id number] Univers 14:15:00 14:15:00 ity [facility] 2020-11-11 2020-11-11 Outpatient R [facility] [id number] Univers 14:00:00 14:00:00 ity [facility] 2020-11-11 2020-11-11 Outpatient R LARON MOONEY [facility] [id number] Univers 11:15:00 11:15:00 ity [facility] 2020-11-11 2020-11-11 Nurse Nurse, [facility] 1.2.840.114 [id number] Univers 10:47:22 11:08:04 Visit Laron Mooney 350.1.13.10 ity of [place] 4.2.7.2.686 [facility] Professio [phone] Ar dical formerly [facility] [address] [facility] 2020-11-11 2020-11-11 Nurse Nurse, [facility] 1.2.840.114 [id number] 10:47:22 11:08:04 Visit Women's Yolanda 350.1.13.10 [facility] [place] 4.2.7.2.686 Professio [phone] [address] 2020-10-28 2020-10-29 [facility] Laron [place]oney [place] 1.2.840.114 [id number] [facility] 05:30:00 22:30:00 Encounter Pietro Guerrero 350.1.13.10 ity of [place] 4.2.7.2.686 [facility] [phone] [facility] [address] [place] 2020-10-28 2020-10-29 [facility] Laron Mooney [facility] 1.2.840.114 [id number] 05:30:00 22:30:00 Encounter Pietro [place] 350.1.13.10 [place] 4.2.7.2.686 [place] [phone] 083 2020-10-27 2020-10-27 Laboratory Only, [facility] Test [facility] 1.2.840. 114 [id number] [facility] 10:13:02 10:28:02 Only Donell Saavedraton 350.1.13.10 ity of [place] 4.2.7.2.686 [facility] [phone] [facility] 353 [place] 2020-10-27 2020-10-27 Laboratory Only, [facility] 1.2.840.114 [id number] 10:13:02 10:28:02 Only Test [place] 350.1.13.10 [place] 4.2.7.2.686 [place] [phone] 353 2020-10-27 2020-10-27 Outpatient R [facility] [id number] Univers 10:00:00 10:00:00 ity of [facility] 2020-10-21 2020-10-21 Routine Laron Mooney WIJOSEPH 1.2.692.363 [id number] [facility] 14:52:05 16:19:18 Cam [place] 350.1.13.10 ity of Visit [place].2.[place] [phone] Ar dical [address] 2020-10-21 2020-10-21 Routine Laron Mooney 1.2.536.043 [id number] 14:52:05 16:19:18 Cam [place] 350.1.13.10 Visit [place] 4.2.7.2.686 Professio [phone] [address] 2020-10-21 2020-10-21 Outpatient R LARON MOONEY [facility] [id number] [facility] 14:45:00 14:45:00 ity of [facility] 2020-10-21 2020-10-21 Orders Doctor LESLEE 1.2.840.114 [id number] 00:00:00 00:00:00 Only Unassigned, DEIRDRE 350.1.13.10 [place] [facility] 4.2.7.2.[phone] [facility] 2020-10-21 2020-10-21 Orders Doctor LESLEE 1.2.840.114 [id number] [facility] 00:00:00 00:00:00 Only Unassigned, DEIRDRE 350.1.13.10 ity of [place] [facility] 4.2.7.2.686 Danny as [phone] [address] 2020-10-14 2020-10-14 Routine Laron Mooney WIJOSEPH 1.2.896.330 [id number] [id number] 15:47:58 16:38:20 Cam [place] 350.1.13.10 Visit [place] 4.2.7.2.686 Professio [phone] [address] 2020-10-14 2020-10-14 Routine Laron Mooney WIJOSEPH 1.2.968.193 [id number] [facility] 15:47:58 16:38:20 Cam [place] 350.1.13.10 ity of Visit [place].2.7.2.[place] [phone] Ar dical nal 134 [facility] 2020-10-14 2020-10-14 General Activities Therapist 2, Adc Lab [facility] 1.2.840.114 [id number] 15:31:53 15:46:53 Visit [place] 350.1.13.10 [place] 4.2.7.2.686 Professio [phone] [address] 2020-10-14 2020-10-14 General Activities Therapist 2, Adc Lab [facility] 1.2.840.114 [id number] [facility] 15:31:53 15:46:53 Visit Laron Mooney [place] 350.1.13.10 ity of [place] 4.2.7.2.[place] [phone] Ar dical [address] 2020-10-14 2020-10-14 Outpatient R LARON MOONEY [facility] [id number] Univers 15:45:00 15:45:00 ity of [facility] 2020-10-14 2020-10-14 Case Laron Mooney [facility] 1.2.570.216 [id number] 00:00:00 00:00:00 Management Cam [place] 350.1.13.10 [place] 4.2.7.2.686 Professio [phone] [address] 2020-10-14 2020-10-14 Case Laron Mooney [facility] 1.2.698.031 [id number] [facility] 00:00:00 00:00:00 Management Cam [place] 350.1.13.10 ity of [place] 4[place]2.7.2.[place] [phone] Ar dical [address] 2020-10-11 2020-10-11 Telephone Laron Mooney [facility] 1.2.840.114 [id number] 00:00:00 00:00:00 Cam [place] 350.1.13.10 [place] 4.2.7.2.686 Professio [phone] [address] 2020-10-11 2020-10-11 Telephone Laron Mooney [facility] 1.2.840.114 [id number] [facility] 00:00:00 00:00:00 Cam [place] 350.1.13.10 i ty of [place] 4[place]2.7.2.[place] [phone] Ar dic[address] 2020-10-07 2020-10-07 Routine Laron Mooney [facility] 1.2.936.278 [id number] 08:18:49 09:18:03 Cam [place] 350.1.13.10 Visit [place] 4.2.7.2.686 Professio [phone] [address] 2020-10-07 2020-10-07 Routine Laron Mooney [facility] 1.2.424.185 [id number] Univers 08:18:49 09:18:03 Cam [place] 350.1.13.10 ity of Visit [place] 4.2.7.2.686 [place] [phone] [address] 2020-10-07 2020-10-07 Outpatient R VINCIIO [facility] [id number] Univers 08:15:00 08:15:00 ity [facility] 2020-10-06 2020-10-06 Outpatient R AMADA [facility] [id number] Univers 09:45:00 09:45:00 [facility] 2020-10-06 2020-10-06 Telephone Laron Mooney [facility] 1.2.840.114 [id number] 00:00:00 00:00:00 Cam [place] 350.1.13.10 [place] 4.2.7.2.686 Professio [phone] [address] 2020-10-06 2020-10-06 Telephone Laron Mooney [facility] 1.2.840.114 [id number] Univers 00:00:00 00:00:00 Cam [place] 350.1.13.10 i ty of [place] 4.2.7.2.[place] [phone] Ar dic[address] 2020-10-02 2020-10-02 Emergency Edgardo Recinos [facility] 1.2.840. 114 [id number] 14:07:00 19:02:00 Annie Mooneyen Cam [place] 350.1.13.10 [place] 4.2.7.2.686 [place] [phone] 083 2020-10-02 2020-10-02 Emergency Edgardo Recinos [facility] 1.2.840. 114 [id number] Univers 14:07:00 19:02:00 Laron Mooney 350.1.13.10 ity of [place] 4[place]2.7.2.686 [place] [phone] [facility] [address] [place] 2020-09-22 2020-09-22 Routine Laron Mooney [facility] 1.2.283.272 [id number] 15:22:19 15:43:16 Pietor Guerrero 350.1.13.10 Visit [place] 4.2.7.2.686 Professio [phone] [address] 2020-09-22 2020-09-22 Routine Laron Mooney [facility] 1.2.184.417 [id number] Univers 15:22:19 15:43:16 Pietro Guerrero 350.1.13.10 ity of Visit [place] 4.2.7.2.686 [facility] Professio [phone] Ar dical [address] 2020-09-22 2020-09-22 Outpatient R LARON MOONEY [facility] [id number] Univers 15:30:00 15:30:00 ity [facility] 2020-09-13 2020-09-13 Orders Doctor CAMILO 1.2.840.114 [id number] Univers 00:00:00 00:00:00 Only Unassigned, DEIRDRE 350.1.13.10 ity of [place] [facility] 4.2.7.2.686 Danny as [phone] [facility] [address] [place] 2020-09-13 2020-09-13 Orders Doctor CAMILO 1.2.840.114 [id number] 00:00:00 00:00:00 Only Unassigned, DEIRDRE 350.1.13.10 [place] [facility] 4.2.7.2.686 [id number] 009 2020-09-08 2020-09-08 Outpatient R AMADA [facility] [id number] Univers 16:30:00 16:30:00 ANNY ity [facility] 2020-09-08 2020-09-08 Routine Amada, [facility] 1.2.308.224 [id number] Univers 10:04:39 10:19:39 Anny [place] 350.1.13.10 ity of Visit [place] 4[place]2.7.2.[place] [phone] Ar dic[address] 2020-09-08 2020-09-08 Routine Amada, [facility] 1.2.703.200 [id number] 10:04:39 10:19:39 Anny [place] 350.1.13.10 Visit [place] 4.2.7.2.686 Professio [phone] [address] 2020-09-04 2020-09-04 Outpatient Harms, [facility] [id number] [facility] 20:56:00 20:56:00 [place] 2020-09-03 2020-09-03 Orders Doctor LESLEE 1.2.840.114 [id number] Univers 00:00:00 00:00:00 Only Unassigned, DEIRDRE 350.1.13.10 ity of [place] [facility] 4.2.7.2.686 Danny as [phone] [address] 2020-09-01 2020-09-01 Case Laron Mooney [facility] 1.2.060.977 [id number] [facility] 00:00:00 00:00:00 Management Cam [place] 350.1.13.10 ity of [place] 4[place]7.2.[place] [phone] [address] 2020-09-01 2020-09-01 Case Laron Mooney [facility] 1.2.514.436 [id number] 00:00:00 00:00:00 Management Cam [place] 350.1.13.10 [place] 4.2.7.2.686 Professio [phone] [address] 2020-08-25 2020-08-25 Routine Laron Mooney [facility] 1.2.809.921 [id number] Univers 09:47:40 10:28:07 Cam [place] 350.1.13.10 ity of Visit [place] 4.2.7.2.[place] [phone] Me dical nal 134 [facility] 2020-08-25 2020-08-25 Outpatient R LARON MOONEY [facility] [id number] Univers 09:45:00 09:45:00 ity of [facility] 2020-08-11 2020-08-11 Outpatient R [facility] [id number] Univers 10:15:00 10:15:00 ity of [facility] 2020-08-11 2020-08-11 General Activities Therapist 2, Adc Lab [facility] 1.2.840.114 [id number] Univers 09:10:01 09:25:01 Visit Laron Mooney Pietro Guerrero 350.1.13.10 ity of [place]2.7.2.[place] [phone] Ar dical nal 353 [facility] 2020-07-30 2020-07-30 General Activities Therapist Ultrasound, Adc [facility] 1.2 .840.114 [id number] Univers 14:09:41 15:09:41 Visit Harry Chisholm 350.1.13.10 ity of [place]2.7.2.[place] [phone] Ar dical nal 134 [facility] 2020-07-30 2020-07-30 Outpatient P [facility] [id number] Univers 14:00:00 14:00:00 ity of [facility] 2020-07-28 2020-07-28 [facility] 1.2.024.561 [id number] Univers 13:02:23 13:51:17 Pietro Guerrero 350.1.13.10 ity of Visit [place] 4.2.7.2.[place] [phone] Ar dical nal 134 [facility] 2020-07-28 2020-07-28 Outpatient R LARON MOONEY [facility] [id number] Univers 13:00:00 13:00:00 ity of [facility] 2020-07-28 2020-07-28 Letter Doctor CAMILO 1.2.840.114 [id number] Univers 00:00:00 00:00:00 (Out) Unassigned, DEIRDRE 350.1.13.10 ity of [place] [facility] 4.2.7.2.686 Danny as [phone] [facility] [address] 2020-07-13 2020-07-13 Letter Laron Mooney [facility] 1.2.955.016 [id number] Univers 00:00:00 00:00:00 (Out) Cam [place] 350.1.13.10 i ty of [place].2.[place] [phone] Ar dical formerly [facility] 134 [facility] 2020-07-10 2020-07-10 Emergency [facility] 1.2.065.258 [id number] Univers 06:03:00 06:42:00 Wakili S [place] 350.1.13.10 ity of [place].2.7.2.686 [place] [phone] [facility] [address] [place] 2020-07-08 2020-07-08 Orders Doctor CAMILO 1.2.840.114 [id number] Univers 00:00:00 00:00:00 Only Unassigned, DEIRDRE 350.1.13.10 ity of [place] [facility] 4.2.7.2.686 Danny as [phone] [facility] [address] 2020-07-01 2020-07-01 Telephone Laron Mooney [facility] 1.2.840.114 [id number] Univers 00:00:00 00:00:00 Cam [place] 350.1.13.10 i ty of [place].2.[place] [phone] Ar dical nal [address] [place] [address] 2020-06-30 2020-06-30 Initial Laron Mooney [facility] 1.2.992.812 [id number] Univers 14:52:17 16:18:50 Cam [place] 350.1.13.10 ity of Visit [place] 4.2.7.2.[place] [phone] Ar dical nal [address] [place] [address] 2020-06-30 2020-06-30 Outpatient R VINICIO LARON [facility] [id number] Univers 14:30:00 14:30:00 ity of [facility] 2020-06-30 2020-06-30 Orders Doctor CAMILO 1.2.840.114 [id number] Univers 00:00:00 00:00:00 Only Unassigned, DEIRDRE 350.1.13.10 ity of [place] [facility] 4.2.7.2.686 Danny [phone] [facility] [address] 2020-06-21 2020-06-21 [facility] 1.2.840.114 [id number] Univers 02:25:00 03:35:00 Encounter Jennifer Guerrero 350.1.13.10 ity of [place] 4.2.7.2.686 [facility] [phone] [facility] [address] 2020-06-21 2020-06-21 Outpatient P [facility] [id number] Univers 02:25:00 02:25:00 JENNIFER [facility] 2019-10-11 2019-10-12 Emergency X [facility] ERT [id number] [employer] 23:44:50 04:24:00 STEPHANIE [facility] Results Test Description Test Time Test Comments Results Result Comments Source POCT TEST 2023-05-17 16:44:00 Test Item Value Reference Range Interpretation Comme nts POCT PREG (test code = 1605) Positive faint On board controls acceptable with C Line (test code = 3574) Yes POCT PREG LOT # (test code = 3575) [facility] DATE (test [facility] = 3576[id number]:44[facility]00 Test Item Value Reference Range Interpretation Comments POCT PREG (test code = 1605) Positive faint On board controls acceptable with C Yes Line (test code = 3574) POCT PREG LOT # (test code = 3575) POCT PREG TEST DATE (test code = 3576) [facility] Notes Date/Time Note Provider Source 2023-05-18 09:36:46-00:00 Formatting of this note migh t be different from the original. [facility] [employer] Images from the original note were not included. Lab work ordered and appointment scheduled. 2023-05-17 12:15:00-00:00 Formatting of this note is d ifferent from the original. [facility] Images from the original note were not included. Venipuncture collection perf ormed by clean technique on the left anticubitus. Total of 1 attempts were made. Slight pressure and a bandage/dressing were applied to the site(s). The patient experienced n o complications. The followi ng specimens were processed according to instructions and sent to [facility] laboratories per lab order on 05/17/2023: LT BLUE SST 1 RED LAV PPT DK GREEN (LiHep) DK GREEN (SodH) ROSE DK BLUE (K2) DK BLUE (S) ACD Blood Culture NIPT/NTD
--- NOTE | 2023-05-18 16:17 | RAD REPORT ---
EXAM DESCRIPTION: US - Transvaginal OB - 05/18/2023 4:05 pm CLINICAL HISTORY: ABD CRAMPING, COMPARISON: OB Limited dated 07/21/2021 TECHNIQUE: Sonographic grayscale and color flow images of a first-trimester were obtained through approach. FINDINGS: Focal endometrial prominence at the fundus, containing a tiny cyst measuring 3 millimeter in greatest dimension. No pole or cardiac pulsation is visualized. Swelling no other focal myometrial lesion. The uterus measures 8.9 cm in length. Right ovary measures 3.2 x 1.9 x 2.2 cm. Left ovary measures 3.7 x 3.0 x 2.7 cm. Preserved vascular f low to both ovaries. No suspicious adnexal masses. No free fluid. IMPRESSION: 1. Tiny cyst in the fundal endometrium could represent an early gestational sac, correla tion with serial beta HCG levels, and short-term interval sonographic follow-up in 7-10 days is recom mended to ensure viability. 2. No suspicious adnexal masses or cysts. Normal appearance of the ovaries bilaterally.
[2023-05-18 16:28] LABS: Absolute Lymphocytes (CBC) 1.9 K/uL (0.7-4.9); MCV 84.6 fL (80-100); MPV 10.7 fL (7.6-11.3); Platelets 310 thou/uL (152-406); RBC Red Blood Cell Count 4.96 M/uL (3.86-4.86)
[2023-05-18 16:41] LABS: Potassium 3.6 mEq/L (3.5-5.1)
[2023-05-18 17:17] LABS: Specific Gravity 1.019 (1.005-1.030); Urine Bilirubin NEGATIVE (Negative); Urine Blood Negative (Negative); Urine Clarity Clear (Clear); Urine Color Light-Yellow (Yellow); Urine Glucose NEGATIVE (Negative); Urine Protein NEGATIVE (Negative); Urine Urobilinogen Normal (Normal); Urine pH 6.5 (5.0-7.0)
--- NOTE | 2023-05-18 17:26 | ER ---
Nurse's Notes [facility] Name: Yesica Islas Age: 27 yrs Sex: Female : 1995 Arrival Date: 05/18/2023 Time: 15:10 Bed 8 Private MD: Diagnosis: Threatened Presentation: 05/18 15:24 Chief complaint: Patient states: found out she was 1 week ago. Pt reports cm10 spotting and light cramping X3 days. Coronavirus screen: Vaccine status: Patient reports being unvaccinated. Ebola Screen: Patient denies travel to an Ebola-affected area in the 21 days before illness onset. No symptoms or risks identified at this time. Initial Sepsis Screen: Does the patient meet any 2 criteria? No. Patient's initial sepsis screen is negative. Does the patient have a suspected source of infection? No. Patient's initial sepsis screen is negative. Risk Assessment: Do you want to hurt yourself or someone else? Patient reports no desire to harm self or others. Onset of symptoms was May 18, 2023. 15:24 Method Of Arrival: Ambulatory cm10 15:24 Acuity: KOFI 3 cm10 GUEST EXPERIENCE SPECIALIST: 15:27 5, 1, Living 3, LMP N/A - control method cm10 17:28 5, 1, Living 3 kb Historical: - Allergies: 15:27 No Known Allergies; cm10 - PSHx: 15:27 section; cm10 - Immunization history:: Adult Immunizations unknown. - Social history:: Smoking status: Patient denies any tobacco usage or history of. Screenin:23 [facility] ED Fall Risk Assessment (Adult) Score/Fall Risk Level 0 - 2 = Low Risk hb Oriented to surroundings, Maintained a safe environment. Abuse screen: Denies threats or abuse. Denies injuries from another. Nutritional screening: No deficits noted. Tuberculosis screening: No symptoms or risk factors identified. Assessment: 17:22 General: Appears in no apparent distress. Behavior is calm, cooperative. Pain: Denies hb pain. Neuro: Level of Consciousness is awake, alert, obeys commands, Oriented to person, place, time, situation. Cardiovascular: Patient's skin is warm and dry. Respiratory: Respiratory effort is even, unlabored, Respiratory pattern is regular, symmetrical. GI: No signs and/or symptoms were reported involving the gastrointestinal system. : Reports vaginal bleeding that is spotty. EENT: No signs and/or symptoms were reported regarding the EENT system. Derm: Skin is pink, warm \T\ dry. Musculoskeletal: No signs and/or symptoms reported regarding the musculoskeletal system. 17:32 Reassessment: Patient appears in no apparent distress at this time. No changes from ld1 previously documented assessment. Patient and/or family updated on plan of care and expected duration. Pain level reassessed. Patient is alert, oriented x 3, equal unlabored respirations, skin warm/dry/pink. Vital Signs: 15:24 BP 102 / 66; Pulse 83; Resp 18 S; Temp 99; Pulse Ox 100% on R/A; Weight 65.32 kg; cm10 Height 5 ft. 3 in. ; Pain 0/10; 17:32 BP 106 / 79; Pulse 79; Resp 18; Pulse Ox 100% on R/A; ld1 15:24 Body Mass Index 25.51 (65.32 kg, 160.02 cm) cm10 15:24 Pain Scale: Adult cm10 ED Course: 15:13 Patient arrived in ED. im 15:13 De[facility]ales [facility]-C [facility]. kb 15:13 Waqas Siddiqi MD is Attending Physician. kb 15:27 Triage completed. cm10 15:27 Arm band placed on Patient placed in waiting room. cm10 16:07 US Transvaginal Ob In Process Unspecified. EDMS 16:16 Abo/rh Typing Sent. bc6 16:16 Basic Metabolic Panel Sent. bc6 16:16 CBC with Diff Sent. bc6 16:17 Quantitative Hcg Sent. bc6 16:17 Inserted saline lock: 22 gauge in left antecubital area, using aseptic technique. Blood bc6 collected. 17:11 Test, Urine Sent. bc6 17:11 Urinalysis w/ reflexes Sent. bc6 17:23 Patient has correct armband on for positive identification. Provided Education on: . hb 17:32 Jennifer Aldana, RN is Primary Nurse. ld1 17:32 No provider procedures requiring assistance completed. IV discontinued, intact, ld1 bleeding controlled, No redness/swelling at site. Administered Medications: No medications were administered Medication: 17:24 VIS not applicable for this client. hb Outcome: 17:25 Discharge ordered by MD. kb 17:32 Discharged to home ambulatory. ld1 17:32 Condition: stable 17:32 Discharge instructions given to patient, Instructed on discharge instructions, follow up and referral plans. Demonstrated understanding of instructions, follow-up care. 17:32 Patient left the ED. ld1 Signatures: Dispatcher [employer] EDMS Debbie Rosales, RAPID EXTRACTOR OPERATOR-C RAPID EXTRACTOR OPERATOR-Katerin Razo RN RN Jennifer Aldana RN RN ld1 Christina Pittman 6 [place] Fitch Clarissa RN RN cm10 Corrections: (The following items were deleted from the chart) 15:27 15:27 Arm band placed on Patient placed in waiting room, on a stretcher, cm10 cm10
--- NOTE | 2023-05-18 17:26 | EDPHYS ---
Physician Documentation [facility] Name: Yesica Islas Age: 27 yrs Sex: Female : 1995 Arrival Date: 05/18/2023 Time: 15:10 Bed 8 Private MD: ED Physician Waqas Siddiqi HPI: 05/18 17:28 This 27 yrs old Female presents to ER via Ambulatory with complaints of kb Vaginal Bleeding, Abdominal Cramping, unknown weeks. 17:28 The patient presents to the emergency department with vaginal bleeding, that is light, kb described as spotting. course: care: none. Previous pregnancies: in previous pregnancies patient has had . Associated signs and symptoms: Pertinent positives: vaginal bleeding, Pertinent negatives: abdominal pain. The patient has not experienced similar symptoms in the past. The patient has not recently seen a physician. METROLOGIST: 15:27 5, 1, Living 3, LMP N/A - control method cm10 17:28 5, 1, Living 3 kb Historical: - Allergies: 15:27 No Known Allergies; cm10 - PSHx: 15:27 section; cm10 - Immunization history:: Adult Immunizations unknown. - Social history:: Smoking status: Patient denies any tobacco usage or history of. ROS: 17:27 Constitutional: Negative for fever, chills, and weight loss. kb 17:27 : Positive for vaginal bleeding. 17:27 All other systems are negative. Exam: 17:27 Constitutional: This is a well developed, well nourished patient who is awake, alert, kb and in no acute distress. Head/Face: Normocephalic, atraumatic. ENT: Moist Mucous membranes Cardiovascular: Regular rate and rhythm with a normal S1 and S2. No gallops, murmurs, or rubs. No pulse deficits. Respiratory: Respirations even and unlabored. No increased work of breathing. Talking in full sentences Abdomen/GI: Soft, non-tender. No distention Skin: Warm, dry with normal turgor. Normal color. MS/ Extremity: Pulses equal, no cyanosis. Neurovascular intact. Full, normal range of motion. Neuro: Awake and alert, GCS 15, oriented to person, place, time, and situation. Moves all extremities. Normal gait. Vital Signs: 15:24 BP 102 / 66; Pulse 83; Resp 18 S; Temp 99; Pulse Ox 100% on R/A; Weight 65.32 kg; cm10 Height 5 ft. 3 in. ; Pain 0/10; 17:32 BP 106 / 79; Pulse 79; Resp 18; Pulse Ox 100% on R/A; ld1 15:24 Body Mass Index 25.51 (65.32 kg, 160.02 cm) cm10 15:24 Pain Scale: Adult cm10 MDM: 15:14 Patient medically screened. kb 17:28 Differential diagnosis: threatened Ab, complete Ab, missed Ab, ectopic . Data kb reviewed: vital signs, nurses notes. Counseling: I had a detailed discussion with the patient and/or guardian regarding the historical points, exam findings, and any diagnostic results supporting the discharge/admit diagnosis, lab results, radiology results, the need for outpatient follow up, an OB/Gyne specialist, to return to the emergency department if symptoms worsen or persist or if there are any questions or concerns that arise at home. 05/18 15:14 Order name: Abo/rh Typing; Complete Time: 17:08 kb 05/18 15:14 Order name: Basic Metabolic Panel; Complete Time: 16:42 kb 05/18 15:14 Order name: CBC with Diff; Complete Time: 16:31 kb 05/18 15:14 Order name: Test, Urine; Complete Time: 17:24 kb 05/18 15:14 Order name: Quantitative Hcg; Complete Time: 16:42 kb 05/18 15:14 Order name: Urinalysis w/ reflexes; Complete Time: 17:24 kb 05/18 15:14 Order name: US Transvaginal Ob; Complete Time: 16:19 kb 05/18 15:14 Order name: IV Saline Lock; Complete Time: 16:16 kb 05/18 15:14 Order name: Labs collected and sent; Complete Time: 16:16 kb 05/18 15:14 Order name: NPO; Complete Time: 16:16 kb Administered Medications: No medications were administered Disposition Summary: 05/18/23 17:25 Discharge Ordered Location: Home kb Condition: Stable kb Diagnosis - Threatened kb Followup: kb - With: Emergency Department - When: As needed - Reason: Worsening of condition Followup: kb - With: Private Physician - When: 2 - 3 days - Reason: Recheck today's complaints, Continuance of care, Re-evaluation by your physician Discharge Instructions: - Discharge Summary Sheet kb - Threatened Miscarriage, [id number] kb - Vaginal Bleeding During , First Trimester, [id number] kb Forms: - Medication Reconciliation Form kb - Thank You Letter kb - Antibiotic Education kb - Prescription Opioid Use kb - Patient Portal Instructions kb - Leadership Thank You Letter kb Signatures: Dispatcher [employer] Debbie Lane, CATALYST OPERATOR GASOLINE-C Kary Escoto, RN RN cm10
[2023-05-18 18:01] VITALS: TEMP 99; O2SAT 100
[2023-05-18 18:02] VITALS: BP 106/79
== END 2023-05-18 17:32 | disposition home or self-care (01) ==
LOC: ER 15:10
DX: O20.0 Threatened abortion (principal)
CPT/HCPCS: 36415; 76817; 80048; 81003; 81025; 84702; 85025; 86900; 86901; 99283

== ENCOUNTER 2023-06-12 22:29 | Emergency (ER) | payer OTHER ==
--- OUTSIDE RECORDS SUMMARY | 2023-06-12 22:35 | XMS REPORT | Continuity of Care Document ---
:1995 Author Organization [facility] t Address [address] [place] [address] Care Team Providers Name Role Phone Pcp, Patient Does Not Have A Primary Care Physician [phone] LARON MOONEY Attending Clinician Unavailable Laron Mooney MD Attending Clinician EBENEZER ARAUJO Attending Clinician Unavailable EBENEZER ARAUJO Attending Clinician Unavailable Lab, Ang - Db Attending Clinician Unavailable Doctor Unassigned, [place] Attending Clinician Unavailable KENYA BELL Attending Clinician Unavailable Kenya Fry Attending Clinician Unknown, Attending Attending Clinician Unavailable Yvan Nickerson Attending Clinician YVAN CHOE Attending Clinician Unavailable Lisa Bo MD K.HLiana Attending Clinician LISA BO K.[place] Attending Clinician Unavailable NEERU BYRD Attending Clinician Unavailable Neeru Byrd MD Attending Clinician Stephanie Ro MD Attending Clinician STEPHANIE RO Attending Clinician Unavailable Pob, [facility] Main Attending Clinician Unavailable Only, Adc Test Attending Clinician Unavailable Anny Ybarra PA-C Attending Clinician ANNY YBARRA Attending Clinician Unavailable JENNIFER WELDON Attending Clinician Unavailable Jaswant Kirby Attending Clinician Jennifer Weldon MD Attending Clinician 2, [facility] Attending Clinician Unavailable Ultrasound, [facility] Attending Clinician Unavailable Jose Infante MD Attending Clinician JOSE INFANTE Attending Clinician Unavailable JOSE INFANTE Attending Clinician Unavailable Ivette Blum MD, Herbert Attending Clinician [phone] HERBERT COLBY Attending Clinician Unavailable Chepe RN, Lisa Parikh Attending Clinician Unavailable Nurse, [facility] Attending Clinician Unavailable Keri CRAIG, Donell Attending Clinician Edgardo Recinos MD Attending Clinician Mart Steele Attending Clinician Unavailable Ultrasound, [facility] Attending Clinician Unavailable Harry Chisholm MD Attending Clinician JENNIFER WELDON Admitting Clinician Unavailable LARON MOONEY Admitting Clinician Unavailable LISA BO Admitting Clinician Unavailable Vinicio CRAIG, Laron [place] Admitting Clinician Jennifer Weldon MD Admitting Clinician STEPHANIE RO Admitting Clinician Unavailable Payers Payer Name Policy Type Policy Number Effective Date Expiration Date [facility] [id number] 2018 [facility] MEDICAID 00:00:00 Problems Condition Condition Condition Status Onset Resolution Last Treating Co mments Source Name Details Category Date Date Treatment Clinician Date Chlamydia Chlamydia Disease Active Uni vers trachomati trachomati 9-12 it y of s s 00:00: [place] infection infection 00 Medi [place] of lower of lower Branch genitourin genitourin cuca sites cuca sites Disease Active Univers control control 8-17 [place] Disease Active Uni vers examinatio examinatio 8-17 it y of n or test, [place] test, [place] positive positive 00 Medica l result result Branch BMI BMI Disease Active Univers 25.0-25.9, 25.0-25.9, 8-17 it y of adult adult 00:00: [address] Liveborn Liveborn Disease Active Unive rs infant, of infant, of 1-28 it y of [place] , , 00 [place] born in born in [facility] hospital by by delivery delivery Obesity Obesity Disease Active 2019-10 Univers (BMI (BMI 1-25 ity of 30-39.9) 30-39.9) 00:00: [address] Previous Previous Disease Active Unive rs 9-30 ity of section section 00:00: [address] Allergies, Adverse Reactions, Alerts Allergy Allergy Status Severity Reaction(s) Onset Inactive Treating Comm ents Source Name Type Date Date Clinician No Known DA Active U 2019-10 [facility] Drug 2-05 Allergie 00:00: [facility] NO KNOWN Drug Active [facility] ALLERGIE Class ity of S [facility] Social History Social Habit Start Date Stop Date Quantity Comments Source ASSERTION 2023-05-08 [facility] 00:00:00 [facility] Gender identity Universit y of [facility] Alcohol intake 2023-06-08 2023-06-08 Ex-drinker [facility] 00:00:00 00:00:00 (finding) [facility] Exposure to 2023-01-27 2023-02-06 Not sure [facility] SARS-CoV-2 (event) 00:00:00 16:37:00 [facility] Tobacco use and 2022-05-19 2022-05-19 Smokeless Universit y of exposure 00:00:00 00:00:00 tobacco [facility]-user [facility] Social 2022-05-15 2022-05-15 Univers ity of function 00:00:00 00:00:00 [facility] Sex Ass[birth year] At [birth year] Universit y of 00:00:00 00:00:00 [facility] Smoking Status Start Date Stop Date Source Never smoked tobacco [facility] Medications Ordered Filled Start Stop Current Ordering Indication Dosage Frequency Signature Comments Components Source Medication Medication Date Date Medication? Clinician (SIG) Name Name jett 2022-0 202- Yes [id number] 1000mg Take 2 Univers n 500 mg 06-12 tablets by ity of tablet 00:00: 04:59 [place] now for 1 Medical dose. Branch polymyxin B 2023-0 Yes [id number] 1[drp] Place 1 Univers sulf-trimet 6-21 Drop in ity o f hoprim 00:00: both eyes [place] 10,000 00 every 4 Medical unit- 1 (four) Branch mg/mL hours. ophthalmic drops polymyxin B 2023-0 Yes [id number] 1[drp] Place 1 Univers sulf-trimet 6-21 Drop in ity o f hoprim 00:00: both eyes [place] 10,000 00 every 4 Medical unit- 1 (four) Branch mg/mL hours. ophthalmic drops polymyxin B 2023-0 Yes [id number] 1[drp] Place 1 Univers sulf-trimet 6-21 Drop in ity o f hoprim 00:00: both eyes [place] 10,000 00 every 4 Medical unit- 1 (four) Branch mg/mL hours. ophthalmic drops polymyxin B 2023-0 Yes [id number] 1[drp] Place 1 Univers sulf-trimet 6-21 Drop in ity o f hoprim 00:00: both eyes [place] 10,000 00 every 4 Medical unit- 1 (four) Branch mg/mL hours. ophthalmic drops polymyxin B 2023-0 Yes [id number] 1[drp] Place 1 Univers sulf-trimet 6-21 Drop in ity o f hoprim 00:00: both eyes [place] 10,000 00 every 4 Medical unit- 1 (four) Branch mg/mL hours. ophthalmic drops polymyxin B 2023-0 Yes [id number] 1[drp] Place 1 Univers sulf-trimet 6-21 Drop in ity o f hoprim 00:00: both eyes [place] 10,000 00 every 4 Medical unit- 1 (four) Branch mg/mL hours. ophthalmic drops polymyxin B 2023-0 Yes [id number] 1[drp] Place 1 Univers sulf-trimet 6-21 Drop in ity o f hoprim 00:00: both eyes [place] 10,000 00 every 4 Medical unit- 1 (four) Branch mg/mL hours. ophthalmic drops polymyxin B 2023-0 Yes [id number] 1[drp] Place 1 Univers sulf-trimet 6-21 Drop in ity o f hoprim 00:00: both eyes [place] 10,000 00 every 4 Medical unit- 1 (four) Branch mg/mL hours. ophthalmic drops polymyxin B 2023-0 Yes [id number] 1[drp] Place 1 Univers sulf-trimet 6-21 Drop in ity o f hoprim 00:00: both eyes [place] 10,000 00 every 4 Medical unit- 1 (four) Branch mg/mL hours. ophthalmic drops polymyxin B 2023-0 Yes [id number] 1[drp] Place 1 Univers sulf-trimet 6-21 Drop in ity o f hoprim 00:00: both eyes [place] 10,000 00 every 4 Medical unit- 1 (four) Branch mg/mL hours. ophthalmic drops polymyxin B 3-0 Yes [id number] 1[drp] Place 1 Univers sulf-trimet 6-21 Drop in ity o f hoprim 00:00: both eyes [place] 10,000 00 every 4 Medical unit- 1 (four) Branch mg/mL hours. ophthalmic drops polymyxin B 3-0 Yes [id number] 1[drp] Place 1 Univers sulf-trimet 6-21 Drop in ity o f hoprim 00:00: both eyes [place] 10,000 00 every 4 Medical unit- 1 (four) Branch mg/mL hours. ophthalmic drops polymyxin B 2022-0 2022- No [id number] 1[drp] Place 1 Univers sulf-trimet 6-21 09-08 Drop in ity of hoprim 00:00: 00:00 both eyes [place] 10,000 00 :00 every 4 Medical unit- 1 (four) Branch mg/mL hours. ophthalmic drops cephALEXin 2022-2022- No [id number] 500mg Take 1 Univers (KEFLEX) 5 05-20 [id number] capsule by it y of 500 mg 00:00: 04:59 mouth 4 [place] capsule 00 :00 (four) Medical times Branch daily for 10 days. clindamycin 2021-0 2021- No [id number] 150mg Take 1 Univers 150 mg 8-15 08-21 capsule by ity of capsule 00:00: 04:59 mouth 4 [place] 00 :00 (four) Medical times Branch daily for 5 days. clindamycin 2021- No [id number] 150mg Take 1 Univers 150 mg 8-15 08-21 capsule by ity of capsule 00:00: 04:59 mouth 4 [place] 00 :00 (four) Medical times Branch daily for 5 days. Yes [id number] 1{tbl} Take 1 Univers vitamin 5-03 tablet by ity of w/FA tablet 00:00: mouth [place] 00 daily. Medical Branch ferrous Yes [id number] 325mg Take 1 Un sowmya sulfate 325 5-03 tablet by ity of mg (65 mg 00:00: mouth 2 [place] iron) 00 (two) Medical tablet times Branch daily. Yes [id number] 1{tbl} Take 1 Univers vitamin 5-03 tablet by ity of w/FA tablet 00:00: mouth [place] 00 daily. Medical Branch ferrous Yes [id number] 325mg Take 1 Un sowmya sulfate 325 5-03 tablet by ity of mg (65 mg 00:00: mouth 2 [place] iron) 00 (two) Medical tablet times Branch daily. Yes [id number] 1{tbl} Take 1 Univers vitamin 5-03 tablet by ity of w/FA tablet 00:00: mouth [place] 00 daily. Medical Branch ferrous Yes [id number] 325mg Take 1 Un sowmya sulfate 325 5-03 tablet by ity of mg (65 mg 00:00: mouth 2 [place] iron) 00 (two) Medical tablet times Branch daily. Yes [id number] 1{tbl} Take 1 Univers vitamin 5-03 tablet by ity of w/FA tablet 00:00: mouth [place] 00 daily. Medical Branch ferrous Yes [id number] 325mg Take 1 Un sowmya sulfate 325 5-03 tablet by ity of mg (65 mg 00:00: mouth 2 [place] iron) 00 (two) Medical tablet times Branch daily. Yes [id number] 1{tbl} Take 1 Univers vitamin 5-03 tablet by ity of w/FA tablet 00:00: mouth [place] 00 daily. Medical Branch ferrous Yes [id number] 325mg Take 1 Un sowmya sulfate 325 5-03 tablet by ity of mg (65 mg 00:00: mouth 2 [place] iron) 00 (two) Medical tablet times Branch daily. Yes [id number] 1{tbl} Take 1 Univers vitamin 5-03 tablet by ity of w/FA tablet 00:00: mouth [place] 00 daily. Medical Branch ferrous Yes [id number] 325mg Take 1 Un sowmya sulfate 325 5-03 tablet by ity of mg (65 mg 00:00: mouth 2 [place] iron) 00 (two) Medical tablet times Branch daily. Yes [id number] 1{tbl} Take 1 Univers vitamin 5-03 tablet by ity of w/FA tablet 00:00: mouth [place] 00 daily. Medical Branch ferrous Yes [id number] 325mg Take 1 Un sowmya sulfate 325 5-03 tablet by ity of mg (65 mg 00:00: mouth 2 [place] iron) 00 (two) Medical tablet times Branch daily. Yes [id number] 1{tbl} Take 1 Univers vitamin 5-03 tablet by ity of w/FA tablet 00:00: mouth [place] 00 daily. Medical Branch ferrous Yes [id number] 325mg Take 1 Un sowmya sulfate 325 5-03 tablet by ity of mg (65 mg 00:00: mouth 2 [place] iron) 00 (two) Medical tablet times Branch daily. Yes [id number] 1{tbl} Take 1 Univers vitamin 5-03 tablet by ity of w/FA tablet 00:00: mouth [place] 00 daily. Medical Branch ferrous Yes [id number] 325mg Take 1 Un sowmya sulfate 325 5-03 tablet by ity of mg (65 mg 00:00: mouth 2 [place] iron) 00 (two) Medical tablet times Branch daily. Yes [id number] 1{tbl} Take 1 Univers vitamin 5-03 tablet by ity of w/FA tablet 00:00: mouth [place] 00 daily. Medical Branch ferrous Yes [id number] 325mg Take 1 Un sowmya sulfate 325 5-03 tablet by ity of mg (65 mg 00:00: mouth 2 [place] iron) 00 (two) Medical tablet times Branch daily. 2021-0 Yes [id number] 1{tbl} Take 1 Univers vitamin 5-03 tablet by ity of w/FA tablet 00:00: mouth [place] 00 daily. Medical Branch ferrous 2021-0 Yes [id number] 325mg Take 1 Un sowmya sulfate 325 5-03 tablet by ity of mg (65 mg 00:00: mouth 2 [place] iron) 00 (two) Medical tablet times Branch daily. 2021-0 Yes [id number] 1{tbl} Take 1 Univers vitamin 5-03 tablet by ity of w/FA tablet 00:00: mouth [place] 00 daily. Medical Branch ferrous 2021-0 Yes [id number] 325mg Take 1 Un sowmya sulfate 325 5-03 tablet by ity of mg (65 mg 00:00: mouth 2 [place] iron) 00 (two) Medical tablet times Branch daily. 2021-0 Yes [id number] 1{tbl} Take 1 Univers vitamin 5-03 tablet by ity of w/FA tablet 00:00: mouth [place] 00 daily. Medical Branch ferrous 2021-0 Yes [id number] 325mg Take 1 Un sowmya sulfate 325 5-03 tablet by ity of mg (65 mg 00:00: mouth 2 [place] iron) 00 (two) Medical tablet times Branch daily. 2021-0 Yes [id number] 1{tbl} Take 1 Univers vitamin 5-03 tablet by ity of w/FA tablet 00:00: mouth [place] 00 daily. Medical Branch ferrous 2021-0 Yes [id number] 325mg Take 1 Un sowmya sulfate 325 5-03 tablet by ity of mg (65 mg 00:00: mouth 2 [place] iron) 00 (two) Medical tablet times Branch daily. 2021-0 Yes [id number] 1{tbl} Take 1 Univers vitamin 5-03 tablet by ity of w/FA tablet 00:00: mouth [place] 00 daily. Medical Branch ferrous 2021-0 Yes [id number] 325mg Take 1 Un sowmya sulfate 325 5-03 tablet by ity of mg (65 mg 00:00: mouth 2 [place] iron) 00 (two) Medical tablet times Branch daily. 2021-0 Yes [id number] 1{tbl} Take 1 Univers vitamin 5-03 tablet by ity of w/FA tablet 00:00: mouth [place] 00 daily. Medical Branch ferrous Yes [id number] 325mg Take 1 Un sowmya sulfate 325 5-03 tablet by ity of mg (65 mg 00:00: mouth 2 [place] iron) 00 (two) Medical tablet times Branch daily. Yes [id number] 1{tbl} Take 1 Univers vitamin 5-03 tablet by ity of w/FA tablet 00:00: mouth [place] 00 daily. Medical Branch ferrous Yes [id number] 325mg Take 1 Un sowmya sulfate 325 5-03 tablet by ity of mg (65 mg 00:00: mouth 2 [place] iron) 00 (two) Medical tablet times Branch daily. Yes [id number] 1{tbl} Take 1 Univers vitamin 5-03 tablet by ity of w/FA tablet 00:00: mouth [place] 00 daily. Medical Branch ferrous Yes [id number] 325mg Take 1 Un sowmya sulfate 325 5-03 tablet by ity of mg (65 mg 00:00: mouth 2 [place] iron) 00 (two) Medical tablet times Branch daily. Yes [id number] 1{tbl} Take 1 Univers vitamin 5-03 tablet by ity of w/FA tablet 00:00: mouth [place] 00 daily. Medical Branch ferrous Yes [id number] 325mg Take 1 Un sowmya sulfate 325 5-03 tablet by ity of mg (65 mg 00:00: mouth 2 [place] iron) 00 (two) Medical tablet times Branch daily. 2022- No [id number] 1{tbl} Take 1 Univers vitamin 5-03 09-08 tablet by ity of w/FA tablet 00:00: [place] daily. Medical Branch ferrous 2022- No [id number] 325mg Take 1 U nivers sulfate 325 5-03 09-08 tablet by it y of mg (65 mg 00:00: 00:00 [place] iron[place] 00 :00 (two) Medical tablet times Branch daily. Immunizations Ordered Immunization Filled Immunization Date Status Commen ts Source Name Name [facility] 2021-11-30 Completed [facility] 00:00:00 [facility] 2021-11-30 Completed University of 00:00:00 [facility] Branch TDAP 2021-11-30 Completed University of 00:00:00 [facility] TDAP 2021-11-30 Completed University of 00:00:00 [place] [facility] TDAP 2021-11-30 Completed University of 00:00:00 [place] [facility] TDAP 2021-11-30 Completed University of 00:00:00 [place] [facility] TDAP 2021-11-30 Completed University of 00:00:00 [place] [facility] TDAP 2021-11-30 Completed University of 00:00:00 [place] [facility] TDAP 2021-11-30 Completed University of 00:00:00 [place] [facility] TDAP 2021-11-30 Completed University of 00:00:00 [place] [facility] TDAP 2021-11-30 Completed [facility] of 00:00:00 [place] [facility] [place] TDAP 2021-11-30 Completed University of 00:00:00 [facility] TDAP 2021-11-30 Completed University of 00:00:00 [facility] TDAP 2021-11-30 Completed University of 00:00:00 [facility] TDAP 2021-11-30 Completed University of 00:00:00 [facility] TDAP 2021-11-30 Completed University of 00:00:00 [facility] TDAP 2021-11-30 Completed University of 00:00:00 [facility] TDAP 2021-11-30 Completed University of 00:00:00 [facility] TDAP 2021-11-30 Completed University of 00:00:00 [facility] TDAP 2021-11-30 Completed University of 00:00:00 [facility] TDAP 2021-11-30 Completed University of 00:00:00 [facility] TDAP 2021-11-30 Completed University of 00:00:00 [facility] Influenza Virus 2021-08-19 Completed Universit y of [...] 00:00:00 [place] [facility] Medical 6+ MO Branch (FLUZONE/FLULAVAL/FLU ARIX) Influenza Virus 2021-08-19 Completed Universit y of Vaccine Quad .5 mL IM 00:00:00 [place] [facility] 6+ MO Branch (FLUZONE/FLULAVAL/FLU ARIX) Influenza Virus 2021-08-19 Completed Universit y of Vaccine Quad .5 mL IM 00:00:00 [place] [facility] 6+ MO Branch (FLUZONE/FLULAVAL/FLU ARIX) TDAP 2020-08-25 Completed University of 00:00:00 [place] [facility] TDAP 2020-08-25 Completed University of 00:00:00 [place] [facility] TDAP 2020-08-25 Completed University of 00:00:00 [place] [facility] TDAP 2020-08-25 Completed University of 00:00:00 [place] [facility] TDAP 2020-08-25 Completed University of 00:00:00 [place] [facility] TDAP 2020-08-25 Completed University of 00:00:00 [place] [facility] TDAP 2020-08-25 Completed University of 00:00:00 [place] [facility] TDAP 2020-08-25 Completed University of 00:00:00 [place] [facility] TDAP 2020-08-25 Completed University of 00:00:00 [place] [facility] TDAP 2020-08-25 Completed University of 00:00:00 [place] [facility] TDAP 2020-08-25 Completed University of 00:00:00 [place] [facility] TDAP 2020-08-25 Completed University of 00:00:00 [place] [facility] TDAP 2020-08-25 Completed University of 00:00:00 [place] [facility] TDAP 2020-08-25 Completed University of 00:00:00 [place] [facility] TDAP 2020-08-25 Completed University of 00:00:00 [place] [facility] TDAP 2020-08-25 Completed University of 00:00:00 [place] [facility] TDAP 2020-08-25 Completed University of 00:00:00 [place] [facility] TDAP 2020-08-25 Completed University of 00:00:00 [place] [facility] TDAP 2020-08-25 Completed University of 00:00:00 [place] [facility] TDAP 2020-08-25 Completed University of 00:00:00 [place] [facility] TDAP 2020-08-25 Completed University of 00:00:00 [place] [facility] TDAP 2020-08-25 Completed University of 00:00:00 [place] [facility] Influenza Virus 2020-06-30 Completed Universit y [...] 00:00:00 [place] [facility] Medical 6+ MO Branch (FLUZONE/FLULAVAL/FLU ARIX) Influenza Virus 2020-06-30 Completed Universit y of Vaccine Quad .5 mL IM 00:00:00 [place] [facility] 6+ MO Branch (FLUZONE/FLULAVAL/FLU ARIX) Influenza Virus 2020-06-30 Completed Universit y of Vaccine Quad .5 mL IM 00:00:00 [place] [facility] 6+ MO Branch (FLUZONE/FLULAVAL/FLU ARIX) HPV 2012-02-08 Completed University of 00:00:00 [place] [...] University of 00:00:00 [place] [facility] HPV 2011-07-13 Completed University of 00:00:00 [place] [facility] HPV 2011-07-13 Completed University of 00:00:00 [place] [facility] HPV 2011-07-13 Completed University of 00:00:00 [place] [facility] HPV 2011-07-13 Completed University of 00:00:00 [facility] Branch HPV 2011-07-13 Completed University of 00:00:00 [facility] Branch HPV 2011-07-13 Completed University of 00:00:00 [facility] Branch HPV 2011-07-13 Completed University of 00:00:00 [facility] Branch HPV 2011-07-13 Completed University of 00:00:00 [facility] Branch HPV 2011-07-13 Completed University of 00:00:00 [facility] Branch HPV 2011-07-13 Completed University of 00:00:00 [facility] Branch HPV 2011-07-13 Completed University of 00:00:00 [facility] Branch HPV 2011-07-13 Completed University of 00:00:00 [facility] Branch HPV 2011-07-13 Completed University of 00:00:00 [facility] Branch HPV 2011-07-13 Completed University of 00:00:00 [facility] Branch HPV 2011-07-13 Completed University of 00:00:00 [facility] Branch HPV 2011-07-13 Completed University of 00:00:00 [facility] Branch HPV 2011-07-13 Completed University of 00:00:00 [facility] Branch HPV 2011-07-13 Completed University of 00:00:00 [facility] Branch HPV 2011-07-13 Completed University of 00:00:00 [facility] HPV 2011-07-13 Completed University of 00:00:00 [facility] HPV 2011-07-13 Completed University of 00:00:00 [facility] HPV 2011-07-13 Completed University of 00:00:00 [facility] Meningococcal 2010-12-28 Completed University of Polysaccharide 00:00:00 [place] [facility] (groups A, C, Y and Branc h W-135) conjugate vaccine (MCV4P) TDAP 2010-12-28 Completed University of 00:00:00 [facility] Varicella 2010-12-28 Completed University of (varivax)(chicken 00:00:00 [place] M edical pox) Branch Meningococcal 2010-12-28 Completed University of Polysaccharide 00:00:00 [place] [facility] [place] (groups A, C, Y and Branc h W-135) conjugate vaccine (MCV4P) TDAP 2010-12-28 Completed University of 00:00:00 [facility] Varicella 2010-12-28 Completed University of (varivax)(chicken 00:00:00 [place] M edical pox) Branch Meningococcal 2010-12-28 Completed University of Polysaccharide 00:00:00 [place] [facility] [place] (groups A, C, Y and Branc h W-135) conjugate vaccine (MCV4P) TDAP 2010-12-28 Completed University of 00:00:00 [facility] Varicella 2010-12-28 Completed University of (varivax)(chicken 00:00:00 [place] M edical pox) Branch Meningococcal 2010-12-28 Completed University of Polysaccharide 00:00:00 [place] [facility] [place] (groups A, C, Y and Branc h W-135) conjugate vaccine (MCV4P) TDAP 2010-12-28 Completed University of 00:00:00 [facility] Varicella 2010-12-28 Completed University of (varivax)(chicken 00:00:00 [place] M edical pox) Branch Meningococcal 2010-12-28 Completed University of Polysaccharide 00:00:00 [place] [facility] [place] (groups A, C, Y and Branc h W-135) conjugate vaccine (MCV4P) TDAP 2010-12-28 Completed University of 00:00:00 [facility] Varicella 2010-12-28 Completed University of (varivax)(chicken 00:00:00 [place] M edical pox) Branch Meningococcal 2010-12-28 Completed University of Polysaccharide 00:00:00 [place] [facility] [place] (groups A, C, Y and Branc h W-135) conjugate vaccine (MCV4P) TDAP 2010-12-28 Completed University of 00:00:00 [facility] Varicella 2010-12-28 Completed University of (varivax)(chicken 00:00:00 [place] M edical pox) Branch Meningococcal 2010-12-28 Completed University of Polysaccharide 00:00:00 [place] [facility] (groups A, C, Y and Branc h W-135) conjugate vaccine (MCV4P) TDAP 2010-12-28 Completed University of 00:00:00 [facility] Varicella 2010-12-28 Completed University of (varivax)(chicken 00:00:00 [place] M edical pox) Branch Meningococcal 2010-12-28 Completed University of Polysaccharide 00:00:00 [place] [facility] [place] (groups A, C, Y and Branc h W-135) conjugate vaccine (MCV4P) TDAP 2010-12-28 Completed University of 00:00:00 [facility] Varicella 2010-12-28 Completed University of (varivax)(chicken 00:00:00 [place] M edical pox) Branch Meningococcal 2010-12-28 Completed University of Polysaccharide 00:00:00 [place] [facility] (groups A, C, Y and Branc h W-135) conjugate vaccine (MCV4P) TDAP 2010-12-28 Completed University of 00:00:00 [facility] Varicella 2010-12-28 Completed University of (varivax)(chicken 00:00:00 [place] M edical pox) Branch Meningococcal 2010-12-28 Completed University of Polysaccharide 00:00:00 [place] [facility] (groups A, C, Y and Branc h W-135) conjugate vaccine (MCV4P) TDAP 2010-12-28 Completed University of 00:00:00 [facility] Varicella 2010-12-28 Completed University of (varivax)(chicken 00:00:00 [place] M edical pox) Branch Meningococcal 2010-12-28 Completed University of Polysaccharide 00:00:00 [place] [facility] (groups A, C, Y and Branc h W-135) conjugate vaccine (MCV4P) TDAP 2010-12-28 Completed [facility] 00:00:00 [facility] Varicella 2010-12-28 Completed [facility] (varivax)(chicken 00:00:00 [facility] pox) [facility] Meningococcal 2010-12-28 Completed [facility] Polysaccharide 00:00:00 [facility] (groups A, C, Y and Branc h W-135) conjugate vaccine (MCV4P) TDAP 2010-12-28 Completed [facility] 00:00:00 [facility] Varicella 2010-12-28 Completed [facility] (varivax)(chicken 00:00:00 [facility] pox) [facility] Meningococcal 2010-12-28 Completed [facility] Polysaccharide 00:00:00 [facility] (groups A, C, Y and Branc h W-135) conjugate vaccine (MCV4P) TDAP 2010-12-28 Completed [facility] 00:00:00 [facility] Varicella 2010-12-28 Completed [facility] (varivax)(chicken 00:00:00 [facility] pox) [facility] Meningococcal 2010-12-28 Completed [facility] Polysaccharide 00:00:00 [facility] (groups A, C, Y and Branc h W-135) conjugate vaccine (MCV4P) TDAP 2010-12-28 Completed [facility] 00:00:00 [facility] Varicella 2010-12-28 Completed [facility] (varivax)(chicken 00:00:00 [facility] pox) [facility] Meningococcal 2010-12-28 Completed [facility] Polysaccharide 00:00:00 [facility] (groups A, C, Y and Branc h W-135) conjugate vaccine (MCV4P) TDAP 2010-12-28 Completed [facility] 00:00:00 [facility] Varicella 2010-12-28 Completed [facility] (varivax)(chicken 00:00:00 [facility] pox) [facility] Meningococcal 2010-12-28 Completed [facility] Polysaccharide 00:00:00 [facility] (groups A, C, Y and Branc h W-135) conjugate vaccine (MCV4P) TDAP 2010-12-28 Completed [facility] 00:00:00 [facility] Varicella 2010-12-28 Completed [facility] (varivax)(chicken 00:00:00 [facility] pox) [facility] Meningococcal 2010-12-28 Completed [facility] Polysaccharide 00:00:00 [facility] (groups A, C, Y and Branc h W-135) conjugate vaccine (MCV4P) TDAP 2010-12-28 Completed [facility] 00:00:00 [facility] Varicella 2010-12-28 Completed [facility] (varivax)(chicken 00:00:00 [place] [facility] pox) [facility] Meningococcal 2010-12-28 Completed [facility] Polysaccharide 00:00:00 [facility] (groups A, C, Y and Branc h W-135) conjugate vaccine (MCV4P) TDAP 2010-12-28 Completed [facility] 00:00:00 [facility] Varicella 2010-12-28 Completed [facility] (varivax)(chicken 00:00:00 [place] [facility] pox) [facility] Meningococcal 2010-12-28 Completed [facility] Polysaccharide 00:00:00 [facility] (groups A, C, Y and Branc h W-135) conjugate vaccine (MCV4P) TDAP 2010-12-28 Completed [facility] 00:00:00 [facility] Varicella 2010-12-28 Completed [facility] (varivax)(chicken 00:00:00 [place] [facility] pox) [facility] Meningococcal 2010-12-28 Completed [facility] Polysaccharide 00:00:00 [facility] (groups A, C, Y and Branc h W-135) conjugate vaccine (MCV4P) TDAP 2010-12-28 Completed [facility] 00:00:00 [facility] Varicella 2010-12-28 Completed [facility] (varivax)(chicken 00:00:00 [place] [facility] pox) [facility] Meningococcal 2010-12-28 Completed [facility] Polysaccharide 00:00:00 [facility] (groups A, C, Y and Branc h W-135) conjugate vaccine (MCV4P) TDAP 2010-12-28 Completed [facility] 00:00:00 [facility] Varicella 2010-12-28 Completed [facility] (varivax)(chicken 00:00:00 [facility] pox) [facility] Meningococcal 2010-12-28 Completed [facility] Polysaccharide 00:00:00 [facility] (groups A, C, Y and Branc h W-135) conjugate vaccine (MCV4P) TDAP 2010-12-28 Completed [facility] 00:00:00 [facility] Varicella 2010-12-28 Completed [facility] (varivax)(chicken 00:00:00 [facility] pox) [facility] DTAP 2002-06-30 Completed [facility] 00:00:00 [facility] MMR 2002-06-30 Completed [facility] 00:00:00 [facility] Polio (IPV/OPV) 2002-06-30 Completed [facility] 00:00:00 [facility] DTAP 2002-06-30 Completed [facility] 00:00:00 [facility] MMR 2002-06-30 Completed [facility] 00:00:00 [facility] Polio (IPV/OPV) 2002-06-30 Completed [facility] 00:00:00 [facility] DTAP 2002-06-30 Completed [facility] 00:00:00 [facility] MMR 2002-06-30 Completed [facility] 00:00:00 [facility] Polio (IPV/OPV) 2002-06-30 Completed [facility] 00:00:00 [facility] DTAP 2002-06-30 Completed [facility] 00:00:00 [facility] MMR 2002-06-30 Completed [facility] 00:00:00 [facility] Polio (IPV/OPV) 2002-06-30 Completed [facility] 00:00:00 [facility] DTAP 2002-06-30 Completed [facility] 00:00:00 [facility] MMR 2002-06-30 Completed [facility] 00:00:00 [facility] Polio (IPV/OPV) 2002-06-30 Completed [facility] 00:00:00 [facility] DTAP 2002-06-30 Completed [facility] 00:00:00 [facility] MMR 2002-06-30 Completed [facility] 00:00:00 [facility] Polio (IPV/OPV) 2002-06-30 Completed [facility] 00:00:00 [facility] DTAP 2002-06-30 Completed [facility] 00:00:00 [facility] MMR 2002-06-30 Completed [facility] 00:00:00 [facility] Polio (IPV/OPV) 2002-06-30 Completed [facility] 00:00:00 [facility] DTAP 2002-06-30 Completed [facility] 00:00:00 [facility] MMR 2002-06-30 Completed [facility] 00:00:00 [facility] Polio (IPV/OPV) 2002-06-30 Completed [facility] 00:00:00 [facility] DTAP 2002-06-30 Completed [facility] 00:00:00 [facility] MMR 2002-06-30 Completed [facility] 00:00:00 [facility] Polio (IPV/OPV) 2002-06-30 Completed [facility] 00:00:00 [facility] DTAP 2002-06-30 Completed [facility] 00:00:00 [facility] MMR 2002-06-30 Completed [facility] 00:00:00 [facility] Polio (IPV/OPV) 2002-06-30 Completed [facility] 00:00:00 [facility] DTAP 2002-06-30 Completed [facility] 00:00:00 [facility] MMR 2002-06-30 Completed [facility] 00:00:00 [facility] Polio (IPV/OPV) 2002-06-30 Completed [facility] 00:00:00 [facility] DTAP 2002-06-30 Completed [facility] 00:00:00 [facility] MMR 2002-06-30 Completed [facility] 00:00:00 [facility] Polio (IPV/OPV) 2002-06-30 Completed [facility] 00:00:00 [facility] DTAP 2002-06-30 Completed [facility] 00:00:00 [facility] MMR 2002-06-30 Completed [facility] 00:00:00 [facility] Polio (IPV/OPV) 2002-06-30 Completed [facility] 00:00:00 [facility] DTAP 2002-06-30 Completed [facility] 00:00:00 [facility] MMR 2002-06-30 Completed [facility] 00:00:00 [facility] Polio (IPV/OPV) 2002-06-30 Completed [facility] 00:00:00 [facility] DTAP 2002-06-30 Completed [facility] 00:00:00 [facility] MMR 2002-06-30 Completed [facility] 00:00:00 [facility] Polio (IPV/OPV) 2002-06-30 Completed [facility] 00:00:00 [facility] DTAP 2002-06-30 Completed [facility] 00:00:00 [facility] MMR 2002-06-30 Completed [facility] 00:00:00 [facility] Polio (IPV/OPV) 2002-06-30 Completed [facility] 00:00:00 [facility] DTAP 2002-06-30 Completed [facility] 00:00:00 [facility] MMR 2002-06-30 Completed [facility] 00:00:00 [facility] Polio (IPV/OPV) 2002-06-30 Completed [facility] 00:00:00 [facility] DTAP 2002-06-30 Completed [facility] 00:00:00 [facility] MMR 2002-06-30 Completed [facility] 00:00:00 [facility] Polio (IPV/OPV) 2002-06-30 Completed [facility] 00:00:00 [facility] DTAP 2002-06-30 Completed [facility] 00:00:00 [facility] MMR 2002-06-30 Completed [facility] 00:00:00 [facility] Polio (IPV/OPV) 2002-06-30 Completed [facility] 00:00:00 [facility] DTAP 2002-06-30 Completed [facility] 00:00:00 [facility] MMR 2002-06-30 Completed [facility] 00:00:00 [facility] Polio (IPV/OPV) 2002-06-30 Completed [facility] 00:00:00 [facility] DTAP 2002-06-30 Completed [facility] 00:00:00 [facility] MMR 2002-06-30 Completed [facility] 00:00:00 [facility] Polio (IPV/OPV) 2002-06-30 Completed [facility] 00:00:00 [facility] DTAP 2002-06-30 Completed [facility] 00:00:00 [facility] MMR 2002-06-30 Completed [facility] 00:00:00 [facility] Polio (IPV/OPV) 2002-06-30 Completed [facility] 00:00:00 [facility] HEPATITIS A 2001-01-17 Completed [facility] 00:00:00 [facility] Pneumococcal 7 2001-01-17 Completed [facility] Conjugate, PCV7 00:00:00 [place] [facility] (Prevnar7) Branch HEPATITIS A 2001-01-17 Completed [facility] 00:00:00 [facility] Pneumococcal 7 2001-01-17 Completed [facility] Conjugate, PCV7 00:00:00 [place] [facility] (Prevnar7) [facility] HEPATITIS A 2001-01-17 Completed [facility] 00:00:00 [facility] Pneumococcal 7 2001-01-17 Completed [facility] Conjugate, PCV7 00:00:00 [place] [facility] (Prevnar7) [facility] HEPATITIS A 2001-01-17 Completed [facility] 00:00:00 [facility] Pneumococcal 7 2001-01-17 Completed [facility] Conjugate, PCV7 00:00:00 [place] [facility] (Prevnar7) [facility] HEPATITIS A 2001-01-17 Completed [facility] 00:00:00 [facility] Pneumococcal 7 2001-01-17 Completed [facility] Conjugate, PCV7 00:00:00 [place] [facility] (Prevnar7) [facility] HEPATITIS A 2001-01-17 Completed [facility] 00:00:00 [facility] Pneumococcal 7 2001-01-17 Completed [facility] Conjugate, PCV7 00:00:00 [place] [facility] (Prevnar7) [facility] HEPATITIS A 2001-01-17 Completed [facility] 00:00:00 [facility] Pneumococcal 7 2001-01-17 Completed [facility] Conjugate, PCV7 00:00:00 [place] [facility] (Prevnar7) [facility] HEPATITIS A 2001-01-17 Completed [facility] 00:00:00 [facility] Pneumococcal 7 2001-01-17 Completed [facility] Conjugate, PCV7 00:00:00 [place] [facility] (Prevnar7) [facility] HEPATITIS A 2001-01-17 Completed [facility] 00:00:00 [facility] Pneumococcal 7 2001-01-17 Completed [facility] Conjugate, PCV7 00:00:00 [place] [facility] (Prevnar7) [facility] HEPATITIS A 2001-01-17 Completed [facility] 00:00:00 [facility] Pneumococcal 7 2001-01-17 Completed [facility] Conjugate, PCV7 00:00:00 [place] [facility] (Prevnar7) [facility] HEPATITIS A 2001-01-17 Completed [facility] 00:00:00 [facility] Pneumococcal 7 2001-01-17 Completed [facility] Conjugate, PCV7 00:00:00 [place] [facility] (Prevnar7) Branch HEPATITIS A 2001-01-17 Completed [facility] 00:00:00 [facility] Pneumococcal 7 2001-01-17 Completed [facility] Conjugate, PCV7 00:00:00 [place] [facility] (Prevnar7) [facility] HEPATITIS A 2001-01-17 Completed [facility] 00:00:00 [facility] Pneumococcal 7 2001-01-17 Completed [facility] Conjugate, PCV7 00:00:00 [place] [facility] (Prevnar7) [facility] HEPATITIS A 2001-01-17 Completed [facility] 00:00:00 [facility] Pneumococcal 7 2001-01-17 Completed [facility] Conjugate, PCV7 00:00:00 [place] [facility] (Prevnar7) [facility] HEPATITIS A 2001-01-17 Completed [facility] 00:00:00 [facility] Pneumococcal 7 2001-01-17 Completed [facility] Conjugate, PCV7 00:00:00 [place] [facility] (Prevnar7) [facility] HEPATITIS A 2001-01-17 Completed [facility] 00:00:00 [facility] Pneumococcal 7 2001-01-17 Completed [facility] Conjugate, PCV7 00:00:00 [place] [facility] (Prevnar7) [facility] HEPATITIS A 2001-01-17 Completed [facility] 00:00:00 [facility] Pneumococcal 7 2001-01-17 Completed [facility] Conjugate, PCV7 00:00:00 [place] [facility] (Prevnar7) [facility] HEPATITIS A 2001-01-17 Completed [facility] 00:00:00 [facility] Pneumococcal 7 2001-01-17 Completed [facility] Conjugate, PCV7 00:00:00 [place] [facility] (Prevnar7) Branch HEPATITIS A 2001-01-17 Completed [facility] 00:00:00 [facility] Pneumococcal 7 2001-01-17 Completed [facility] Conjugate, PCV7 00:00:00 [place] [facility] (Prevnar7) Branch HEPATITIS A 2001-01-17 Completed [facility] 00:00:00 [facility] Pneumococcal 7 2001-01-17 Completed [facility] Conjugate, PCV7 00:00:00 [place] [facility] (Prevnar7) [facility] HEPATITIS A 2001-01-17 Completed [facility] 00:00:00 [facility] Pneumococcal 7 2001-01-17 Completed [facility] of Conjugate, PCV7 00:00:00 [facility] ical (Prevnar7) Branch HEPATITIS A 2001-01-17 Completed [facility] 00:00:00 [facility] Pneumococcal 7 2001-01-17 Completed [facility] of Conjugate, PCV7 00:00:00 [facility] ical (Prevnar7) Branch DTAP 1998-12-09 Completed [facility] 00:00:00 [facility] HIB 4 Dose Schedule 1998-12-09 Completed Unive rsity of 00:00:00 [facility] Polio (IPV/OPV) 1998-12-09 Completed [facility] 00:00:00 [facility] DTAP 1998-12-09 Completed [facility] 00:00:00 [facility] HIB 4 Dose Schedule 1998-12-09 Completed Unive rsity of 00:00:00 [facility] Polio (IPV/OPV) 1998-12-09 Completed [facility] 00:00:00 [facility] DTAP 1998-12-09 Completed [facility] 00:00:00 [facility] HIB 4 Dose Schedule 1998-12-09 Completed Unive rsity of 00:00:00 [facility] Polio (IPV/OPV) 1998-12-09 Completed [facility] 00:00:00 [facility] DTAP 1998-12-09 Completed [facility] 00:00:00 [facility] HIB 4 Dose Schedule 1998-12-09 Completed Unive rsity of 00:00:00 [facility] Polio (IPV/OPV) 1998-12-09 Completed [facility] of 00:00:00 [facility] DTAP 1998-12-09 Completed [facility] 00:00:00 [facility] HIB 4 Dose Schedule 1998-12-09 Completed Unive rsity of 00:00:00 [facility] Polio (IPV/OPV) 1998-12-09 Completed [facility] 00:00:00 [facility] DTAP 1998-12-09 Completed [facility] 00:00:00 [facility] HIB 4 Dose Schedule 1998-12-09 Completed Unive rsity of 00:00:00 [facility] Polio (IPV/OPV) 1998-12-09 Completed [facility] 00:00:00 [facility] DTAP 1998-12-09 Completed [facility] 00:00:00 [facility] HIB 4 Dose Schedule 1998-12-09 Completed Unive rsity of 00:00:00 [facility] Polio (IPV/OPV) 1998-12-09 Completed [facility] 00:00:00 [facility] DTAP 1998-12-09 Completed [facility] 00:00:00 [facility] HIB 4 Dose Schedule 1998-12-09 Completed Unive rsity of 00:00:00 [facility] Polio (IPV/OPV) 1998-12-09 Completed [facility] 00:00:00 [facility] DTAP 1998-12-09 Completed [facility] 00:00:00 [facility] HIB 4 Dose Schedule 1998-12-09 Completed Unive rsity of 00:00:00 [facility] Polio (IPV/OPV) 1998-12-09 Completed [facility] 00:00:00 [facility] DTAP 1998-12-09 Completed [facility] 00:00:00 [facility] HIB 4 Dose Schedule 1998-12-09 Completed [facility]ive rsity of 00:00:00 [facility] Polio (IPV/OPV) 1998-12-09 Completed [facility] 00:00:00 [facility] DTAP 1998-12-09 Completed [facility] 00:00:00 [facility] HIB 4 Dose Schedule 1998-12-09 Completed [facility]ive rsity of 00:00:00 [facility] Polio (IPV/OPV) 1998-12-09 Completed [facility] 00:00:00 [facility] DTAP 1998-12-09 Completed [facility] 00:00:00 [facility] HIB 4 Dose Schedule 1998-12-09 Completed [facility]ive rsity of 00:00:00 [facility] Polio (IPV/OPV) 1998-12-09 Completed [facility] 00:00:00 [facility] DTAP 1998-12-09 Completed [facility] 00:00:00 [facility] HIB 4 Dose Schedule 1998-12-09 Completed Unive rsity of 00:00:00 [facility] Polio (IPV/OPV) 1998-12-09 Completed [facility] 00:00:00 [facility] DTAP 1998-12-09 Completed [facility] 00:00:00 [facility] HIB 4 Dose Schedule 1998-12-09 Completed Unive rsity of 00:00:00 [facility] Polio (IPV/OPV) 1998-12-09 Completed [facility] 00:00:00 [facility] DTAP 1998-12-09 Completed [facility] 00:00:00 [facility] HIB 4 Dose Schedule 1998-12-09 Completed Unive rsity of 00:00:00 [facility] Polio (IPV/OPV) 1998-12-09 Completed [facility] 00:00:00 [facility] DTAP 1998-12-09 Completed [facility] 00:00:00 [facility] HIB 4 Dose Schedule 1998-12-09 Completed Unive rsity of 00:00:00 [facility] Polio (IPV/OPV) 1998-12-09 Completed [facility] 00:00:00 [facility] DTAP 1998-12-09 Completed [facility] 00:00:00 [facility] HIB 4 Dose Schedule 1998-12-09 Completed [facility]ive rsity of 00:00:00 [facility] Polio (IPV/OPV) 1998-12-09 Completed [facility] 00:00:00 [facility] DTAP 1998-12-09 Completed [facility] 00:00:00 [facility] HIB 4 Dose Schedule 1998-12-09 Completed [facility] rs[facility] of 00:00:00 [facility] Polio (IPV/OPV) 1998-12-09 Completed [facility] 00:00:00 [facility] DTAP 1998-12-09 Completed [facility] 00:00:00 [facility] HIB 4 Dose Schedule 1998-12-09 Completed [facility] rs[facility] of 00:00:00 [facility] Polio (IPV/OPV) 1998-12-09 Completed [facility] 00:00:00 [facility] DTAP 1998-12-09 Completed [facility] 00:00:00 [facility] HIB 4 Dose Schedule 1998-12-09 Completed [facility]ive rsity of 00:00:00 [facility] Polio (IPV/OPV) 1998-12-09 Completed [facility] 00:00:00 [facility] DTAP 1998-12-09 Completed [facility] 00:00:00 [facility] HIB 4 Dose Schedule 1998-12-09 Completed [facility]ive [facility]ity of 00:00:00 [facility] Polio (IPV/OPV) 1998-12-09 Completed [facility] 00:00:00 [facility] DTAP 1998-12-09 Completed [facility] 00:00:00 [facility] HIB 4 Dose Schedule 1998-12-09 Completed [facility] rs[facility] of 00:00:00 [facility] Polio (IPV/OPV) 1998-12-09 Completed [facility] 00:00:00 [facility] MMR 1998-07-20 Completed [facility] 00:00:00 [facility] Polio (IPV/OPV) 1998-07-20 Completed [facility] 00:00:00 [facility] Varicella 1998-07-20 Completed [facility] (varivax)(chicken 00:00:00 [facility] pox) [facility] MMR 1998-07-20 Completed [facility] 00:00:00 [facility] Polio (IPV/OPV) 1998-07-20 Completed [facility] 00:00:00 [facility] Varicella 1998-07-20 Completed [facility] (varivax)(chicken 00:00:00 [facility] pox) [facility] MMR 1998-07-20 Completed [facility] 00:00:00 [facility] Polio (IPV/OPV) 1998-07-20 Completed [facility] 00:00:00 [facility] Varicella 1998-07-20 Completed [facility] (varivax)(chicken 00:00:00 [facility] pox) [facility] MMR 1998-07-20 Completed [facility] 00:00:00 [facility] Polio (IPV/OPV) 1998-07-20 Completed [facility] 00:00:00 [facility] Varicella 1998-07-20 Completed [facility] (varivax)(chicken 00:00:00 [facility] pox) [facility] MMR 1998-07-20 Completed [facility] 00:00:00 [facility] Polio (IPV/OPV) 1998-07-20 Completed [facility] 00:00:00 [facility] Varicella 1998-07-20 Completed [facility] (varivax)(chicken 00:00:00 [facility] pox) [facility] MMR 1998-07-20 Completed [facility] 00:00:00 [facility] Polio (IPV/OPV) 1998-07-20 Completed [facility] 00:00:00 [facility] Varicella 1998-07-20 Completed [facility] (varivax)(chicken 00:00:00 [facility] pox) [facility] MMR 1998-07-20 Completed [facility] 00:00:00 [facility] Polio (IPV/OPV) 1998-07-20 Completed [facility] 00:00:00 [facility] Varicella 1998-07-20 Completed [facility] (varivax)(chicken 00:00:00 [facility] pox) [facility] MMR 1998-07-20 Completed [facility] 00:00:00 [facility] Polio (IPV/OPV) 1998-07-20 Completed [facility] 00:00:00 [facility] Varicella 1998-07-20 Completed [facility] (varivax)(chicken 00:00:00 [facility] pox) [facility] MMR 1998-07-20 Completed [facility] 00:00:00 [facility] Polio (IPV/OPV) 1998-07-20 Completed [facility] 00:00:00 [facility] Varicella 1998-07-20 Completed [facility] (varivax)(chicken 00:00:00 [facility] pox) [facility] MMR 1998-07-20 Completed [facility] 00:00:00 [facility] Polio (IPV/OPV) 1998-07-20 Completed [facility] 00:00:00 [facility] Varicella 1998-07-20 Completed [facility] (varivax)(chicken 00:00:00 [facility] pox) [facility] MMR 1998-07-20 Completed [facility] 00:00:00 [facility] Polio (IPV/OPV) 1998-07-20 Completed [facility] 00:00:00 [facility] Varicella 1998-07-20 Completed [facility] (varivax)(chicken 00:00:00 [facility] pox) [facility] MMR 1998-07-20 Completed [facility] 00:00:00 [facility] Polio (IPV/OPV) 1998-07-20 Completed [facility] 00:00:00 [facility] Varicella 1998-07-20 Completed [facility] (varivax)(chicken 00:00:00 [facility] pox) [facility] MMR 1998-07-20 Completed [facility] 00:00:00 [facility] Polio (IPV/OPV) 1998-07-20 Completed [facility] 00:00:00 [facility] Varicella 1998-07-20 Completed [facility] (varivax)(chicken 00:00:00 [facility] pox) [facility] MMR 1998-07-20 Completed [facility] 00:00:00 [facility] Polio (IPV/OPV) 1998-07-20 Completed [facility] 00:00:00 [facility] Varicella 1998-07-20 Completed [facility] (varivax)(chicken 00:00:00 [facility] pox) [facility] MMR 1998-07-20 Completed [facility] 00:00:00 [facility] Polio (IPV/OPV) 1998-07-20 Completed [facility] 00:00:00 [facility] Varicella 1998-07-20 Completed [facility] (varivax)(chicken 00:00:00 [facility] pox) [facility] MMR 1998-07-20 Completed [facility] 00:00:00 [facility] Polio (IPV/OPV) 1998-07-20 Completed [facility] 00:00:00 [facility] Varicella 1998-07-20 Completed [facility] (varivax)(chicken 00:00:00 [facility] pox) [facility] MMR 1998-07-20 Completed [facility] 00:00:00 [facility] Polio (IPV/OPV) 1998-07-20 Completed [facility] 00:00:00 [facility] Varicella 1998-07-20 Completed [facility] (varivax)(chicken 00:00:00 [place] [facility] MMR 1998-07-20 Completed [facility] 00:00:00 [facility] Polio (IPV/OPV) 1998-07-20 Completed [facility] 00:00:00 [facility] Varicella 1998-07-20 Completed [facility] (varivax)(chicken 00:00:00 [place] [facility] MMR 1998-07-20 Completed [facility] 00:00:00 [facility] Polio (IPV/OPV) 1998-07-20 Completed [facility] 00:00:00 [facility] Varicella 1998-07-20 Completed [facility] (varivax)(chicken 00:00:00 [place] [facility] MMR 1998-07-20 Completed [facility] 00:00:00 [facility] Polio (IPV/OPV) 1998-07-20 Completed [facility] 00:00:00 [facility] Varicella 1998-07-20 Completed [facility] (varivax)(chicken 00:00:00 [place] [facility] MMR 1998-07-20 Completed [facility] 00:00:00 [facility] Polio (IPV/OPV) 1998-07-20 Completed [facility] 00:00:00 [facility] Varicella 1998-07-20 Completed [facility] (varivax)(chicken 00:00:00 [place] [facility] MMR 1998-07-20 Completed [facility] 00:00:00 [facility] Polio (IPV/OPV) 1998-07-20 Completed [facility] 00:00:00 [facility] Varicella 1998-07-20 Completed [facility] (varivax)(chicken 00:00:00 [place] [facility] DTAP 1998-05-20 Completed [facility] 00:00:00 [facility] HIB 4 Dose Schedule 1998-05-20 Completed [facility] 00:00:00 [facility] Hep B, Adol or Pedi 1998-05-20 Completed [facility] Dosage 00:00:00 [facility] DTAP 1998-05-20 Completed [facility] 00:00:00 [facility] HIB 4 Dose Schedule 1998-05-20 Completed [facility] 00:00:00 [facility] Hep B, Adol or Pedi 1998-05-20 Completed [facility] Dosage 00:00:00 [facility] DTAP 1998-05-20 Completed [facility] 00:00:00 [facility] HIB 4 Dose Schedule 1998-05-20 Completed [facility] 00:00:00 [facility] Hep B, Adol or Pedi 1998-05-20 Completed [facility] Dosage 00:00:00 [facility] DTAP 1998-05-20 Completed [facility] 00:00:00 [facility] HIB 4 Dose Schedule 1998-05-20 Completed [facility] 00:00:00 [facility] Hep B, Adol or Pedi 1998-05-20 Completed [facility] Dosage 00:00:00 [facility] DTAP 1998-05-20 Completed [facility] 00:00:00 [facility] HIB 4 Dose Schedule 1998-05-20 Completed [facility] 00:00:00 [facility] Hep B, Adol or Pedi 1998-05-20 Completed [facility] Dosage 00:00:00 [facility] DTAP 1998-05-20 Completed [facility] 00:00:00 [facility] HIB 4 Dose Schedule 1998-05-20 Completed [facility] 00:00:00 [facility] Hep B, Adol or Pedi 1998-05-20 Completed [facility] Dosage 00:00:00 [facility] DTAP 1998-05-20 Completed [facility] 00:00:00 [facility] HIB 4 Dose Schedule 1998-05-20 Completed [facility] 00:00:00 [facility] Hep B, Adol or Pedi 1998-05-20 Completed [facility] Dosage 00:00:00 [facility] DTAP 1998-05-20 Completed [facility] 00:00:00 [facility] HIB 4 Dose Schedule 1998-05-20 Completed [facility] 00:00:00 [facility] Hep B, Adol or Pedi 1998-05-20 Completed [facility] Dosage 00:00:00 [facility] DTAP 1998-05-20 Completed [facility] 00:00:00 [facility] HIB 4 Dose Schedule 1998-05-20 Completed [facility] 00:00:00 [facility] Hep B, Adol or Pedi 1998-05-20 Completed [facility] Dosage 00:00:00 [facility] DTAP 1998-05-20 Completed [facility] 00:00:00 [facility] HIB 4 Dose Schedule 1998-05-20 Completed [facility] 00:00:00 [facility] Hep B, Adol or Pedi 1998-05-20 Completed [facility] Dosage 00:00:00 [facility] DTAP 1998-05-20 Completed [facility] 00:00:00 [facility] HIB 4 Dose Schedule 1998-05-20 Completed [facility] 00:00:00 [facility] Hep B, Adol or Pedi 1998-05-20 Completed [facility] Dosage 00:00:00 [facility] DTAP 1998-05-20 Completed [facility] 00:00:00 [facility] HIB 4 Dose Schedule 1998-05-20 Completed [facility] 00:00:00 [facility] Hep B, Adol or Pedi 1998-05-20 Completed [facility] Dosage 00:00:00 [facility] DTAP 1998-05-20 Completed [facility] 00:00:00 [facility] HIB 4 Dose Schedule 1998-05-20 Completed [facility] 00:00:00 [facility] Hep B, Adol or Pedi 1998-05-20 Completed [facility] Dosage 00:00:00 [facility] DTAP 1998-05-20 Completed [facility] 00:00:00 [facility] HIB 4 Dose Schedule 1998-05-20 Completed [facility] 00:00:00 [facility] Hep B, Adol or Pedi 1998-05-20 Completed [facility] Dosage 00:00:00 [facility] DTAP 1998-05-20 Completed [facility] 00:00:00 [facility] HIB 4 Dose Schedule 1998-05-20 Completed [facility] 00:00:00 [facility] Hep B, Adol or Pedi 1998-05-20 Completed [facility] Dosage 00:00:00 [facility] DTAP 1998-05-20 Completed [facility] 00:00:00 [facility] HIB 4 Dose Schedule 1998-05-20 Completed [facility] 00:00:00 [facility] Hep B, Adol or Pedi 1998-05-20 Completed [facility] Dosage 00:00:00 [facility] DTAP 1998-05-20 Completed [facility] 00:00:00 [facility] HIB 4 Dose Schedule 1998-05-20 Completed [facility] 00:00:00 [facility] Hep B, Adol or Pedi 1998-05-20 Completed [facility] Dosage 00:00:00 [facility] DTAP 1998-05-20 Completed [facility] 00:00:00 [facility] HIB 4 Dose Schedule 1998-05-20 Completed [facility] 00:00:00 [facility] Hep B, Adol or Pedi 1998-05-20 Completed [facility] Dosage 00:00:00 [facility] DTAP 1998-05-20 Completed [facility] 00:00:00 [facility] HIB 4 Dose Schedule 1998-05-20 Completed [facility] 00:00:00 [facility] Hep B, Adol or Pedi 1998-05-20 Completed [facility] Dosage 00:00:00 [facility] DTAP 1998-05-20 Completed [facility] 00:00:00 [facility] HIB 4 Dose Schedule 1998-05-20 Completed [facility] 00:00:00 [facility] Hep B, Adol or Pedi 1998-05-20 Completed [facility] Dosage 00:00:00 [facility] DTAP 1998-05-20 Completed [facility] 00:00:00 [facility] HIB 4 Dose Schedule 1998-05-20 Completed [facility] 00:00:00 [facility] Hep B, Adol or Pedi 1998-05-20 Completed [facility] Dosage 00:00:00 [facility] DTAP 1998-05-20 Completed [facility] 00:00:00 [facility] HIB 4 Dose Schedule 1998-05-20 Completed [facility] 00:00:00 [facility] Hep B, Adol or Pedi 1998-05-20 Completed [facility] Dosage 00:00:00 [facility] DTAP 1998-03-23 Completed [facility] 00:00:00 [facility] HIB 4 Dose Schedule 1998-03-23 Completed [facility] 00:00:00 [facility] Hep B, Adol or Pedi 1998-03-23 Completed [facility] Dosage 00:00:00 [facility] Polio (IPV/OPV) 1998-03-23 Completed [facility] 00:00:00 [facility] DTAP 1998-03-23 Completed [facility] 00:00:00 [facility] HIB 4 Dose Schedule 1998-03-23 Completed [facility] 00:00:00 [facility] Hep B, Adol or Pedi 1998-03-23 Completed [facility] Dosage 00:00:00 [facility] Polio (IPV/OPV) 1998-03-23 Completed [facility] 00:00:00 [facility] DTAP 1998-03-23 Completed [facility] 00:00:00 [facility] HIB 4 Dose Schedule 1998-03-23 Completed [facility] 00:00:00 [facility] Hep B, Adol or Pedi 1998-03-23 Completed [facility] Dosage 00:00:00 [facility] Polio (IPV/OPV) 1998-03-23 Completed [facility] 00:00:00 [facility] DTAP 1998-03-23 Completed [facility] 00:00:00 [facility] HIB 4 Dose Schedule 1998-03-23 Completed [facility] 00:00:00 [facility] Hep B, Adol or Pedi 1998-03-23 Completed [facility] Dosage 00:00:00 [facility] Polio (IPV/OPV) 1998-03-23 Completed [facility] 00:00:00 [facility] DTAP 1998-03-23 Completed [facility] 00:00:00 [facility] HIB 4 Dose Schedule 1998-03-23 Completed [facility] 00:00:00 [facility] Hep B, Adol or Pedi 1998-03-23 Completed [facility] Dosage 00:00:00 [facility] Polio (IPV/OPV) 1998-03-23 Completed [facility] 00:00:00 [facility] DTAP 1998-03-23 Completed [facility] 00:00:00 [facility] HIB 4 Dose Schedule 1998-03-23 Completed [facility] 00:00:00 [facility] Hep B, Adol or Pedi 1998-03-23 Completed [facility] Dosage 00:00:00 [facility] Polio (IPV/OPV) 1998-03-23 Completed [facility] 00:00:00 [facility] DTAP 1998-03-23 Completed [facility] 00:00:00 [facility] HIB 4 Dose Schedule 1998-03-23 Completed [facility] 00:00:00 [facility] Hep B, Adol or Pedi 1998-03-23 Completed [facility] Dosage 00:00:00 [facility] Polio (IPV/OPV) 1998-03-23 Completed [facility] 00:00:00 [facility] DTAP 1998-03-23 Completed [facility] 00:00:00 [facility] HIB 4 Dose Schedule 1998-03-23 Completed [facility] 00:00:00 [facility] Hep B, Adol or Pedi 1998-03-23 Completed [facility] Dosage 00:00:00 [facility] Polio (IPV/OPV) 1998-03-23 Completed [facility] 00:00:00 [facility] DTAP 1998-03-23 Completed [facility] 00:00:00 [facility] HIB 4 Dose Schedule 1998-03-23 Completed [facility] 00:00:00 [facility] Hep B, Adol or Pedi 1998-03-23 Completed [facility] Dosage 00:00:00 [facility] Polio (IPV/OPV) 1998-03-23 Completed [facility] 00:00:00 [facility] DTAP 1998-03-23 Completed [facility] 00:00:00 [facility] HIB 4 Dose Schedule 1998-03-23 Completed [facility] 00:00:00 [facility] Hep B, Adol or Pedi 1998-03-23 Completed [facility] Dosage 00:00:00 [facility] Polio (IPV/OPV) 1998-03-23 Completed [facility] 00:00:00 [facility] DTAP 1998-03-23 Completed [facility] 00:00:00 [facility] HIB 4 Dose Schedule 1998-03-23 Completed [facility] 00:00:00 [facility] Hep B, Adol or Pedi 1998-03-23 Completed [facility] Dosage 00:00:00 [facility] Polio (IPV/OPV) 1998-03-23 Completed [facility] 00:00:00 [facility] DTAP 1998-03-23 Completed [facility] 00:00:00 [facility] HIB 4 Dose Schedule 1998-03-23 Completed [facility] 00:00:00 [facility] Hep B, Adol or Pedi 1998-03-23 Completed [facility] Dosage 00:00:00 [facility] Polio (IPV/OPV) 1998-03-23 Completed [facility] 00:00:00 [facility] DTAP 1998-03-23 Completed [facility] 00:00:00 [facility] HIB 4 Dose Schedule 1998-03-23 Completed [facility] 00:00:00 [facility] Hep B, Adol or Pedi 1998-03-23 Completed [facility] Dosage 00:00:00 [facility] Polio (IPV/OPV) 1998-03-23 Completed [facility] 00:00:00 [facility] DTAP 1998-03-23 Completed [facility] 00:00:00 [facility] HIB 4 Dose Schedule 1998-03-23 Completed [facility] 00:00:00 [facility] Hep B, Adol or Pedi 1998-03-23 Completed [facility] Dosage 00:00:00 [facility] Polio (IPV/OPV) 1998-03-23 Completed [facility] 00:00:00 [facility] DTAP 1998-03-23 Completed [facility] 00:00:00 [facility] HIB 4 Dose Schedule 1998-03-23 Completed [facility] 00:00:00 [facility] Hep B, Adol or Pedi 1998-03-23 Completed [facility] Dosage 00:00:00 [facility] Polio (IPV/OPV) 1998-03-23 Completed [facility] 00:00:00 [facility] DTAP 1998-03-23 Completed [facility] 00:00:00 [facility] HIB 4 Dose Schedule 1998-03-23 Completed [facility] 00:00:00 [facility] Hep B, Adol or Pedi 1998-03-23 Completed [facility] of Dosage 00:00:00 [facility] Polio (IPV/OPV) 1998-03-23 Completed [facility] 00:00:00 [facility] DTAP 1998-03-23 Completed [facility] 00:00:00 [facility] HIB 4 Dose Schedule 1998-03-23 Completed [facility] 00:00:00 [facility] Hep B, Adol or Pedi 1998-03-23 Completed [facility] of Dosage 00:00:00 [facility] Polio (IPV/OPV) 1998-03-23 Completed [facility] 00:00:00 [facility] DTAP 1998-03-23 Completed [facility] 00:00:00 [facility] HIB 4 Dose Schedule 1998-03-23 Completed [facility] 00:00:00 [facility] Hep B, Adol or Pedi 1998-03-23 Completed [facility] Dosage 00:00:00 [facility] Polio (IPV/OPV) 1998-03-23 Completed [facility] 00:00:00 [facility] DTAP 1998-03-23 Completed [facility] 00:00:00 [facility] HIB 4 Dose Schedule 1998-03-23 Completed [facility] 00:00:00 [facility] Hep B, Adol or Pedi 1998-03-23 Completed [facility] Dosage 00:00:00 [facility] Polio (IPV/OPV) 1998-03-23 Completed [facility] 00:00:00 [facility] DTAP 1998-03-23 Completed [facility] 00:00:00 [facility] HIB 4 Dose Schedule 1998-03-23 Completed [facility] 00:00:00 [facility] Hep B, Adol or Pedi 1998-03-23 Completed [facility] Dosage 00:00:00 [facility] Polio (IPV/OPV) 1998-03-23 Completed [facility] 00:00:00 [facility] DTAP 1998-03-23 Completed [facility] 00:00:00 [facility] HIB 4 Dose Schedule 1998-03-23 Completed [facility] 00:00:00 [facility] Hep B, Adol or Pedi 1998-03-23 Completed [facility] Dosage 00:00:00 [facility] Polio (IPV/OPV) 1998-03-23 Completed [facility] 00:00:00 [facility] DTAP 1998-03-23 Completed [facility] 00:00:00 [facility] HIB 4 Dose Schedule 1998-03-23 Completed [facility] 00:00:00 [facility] Hep B, Adol or Pedi 1998-03-23 Completed [facility] Dosage 00:00:00 [facility] Polio (IPV/OPV) 1998-03-23 Completed [facility] 00:00:00 [facility] DTAP 1997 Completed [facility] 00:00:00 [facility] HIB 4 Dose Schedule 1997 Completed [facility] 00:00:00 [facility] Hep B, Adol or Pedi 1997 Completed [facility] Dosage 00:00:00 [facility] Polio (IPV/OPV) 1997 Completed [facility] 00:00:00 [facility] DTAP 1997 Completed [facility] 00:00:00 [facility] HIB 4 Dose Schedule 1997 Completed [facility] 00:00:00 [facility] Hep B, Adol or Pedi 1997 Completed [facility] of Dosage 00:00:00 [facility] Polio (IPV/OPV) 1997 Completed [facility] 00:00:00 [facility] DTAP 1997 Completed [facility] 00:00:00 [facility] HIB 4 Dose Schedule 1997 Completed [facility] 00:00:00 [facility] Hep B, Adol or Pedi 1997 Completed [facility] Dosage 00:00:00 [facility] Polio (IPV/OPV) 1997 Completed [facility] 00:00:00 [facility] DTAP 1997 Completed [facility] 00:00:00 [facility] HIB 4 Dose Schedule 1997 Completed [facility] 00:00:00 [facility] Hep B, Adol or Pedi 1997 Completed [facility] Dosage 00:00:00 [facility] Polio (IPV/OPV) 1997 Completed [facility] 00:00:00 [facility] DTAP 1997 Completed [facility] 00:00:00 [facility] HIB 4 Dose Schedule 1997 Completed [facility] 00:00:00 [facility] Hep B, Adol or Pedi 1997 Completed [facility] of Dosage 00:00:00 [facility] Polio (IPV/OPV) 1997 Completed [facility] 00:00:00 [facility] DTAP 1997 Completed [facility] 00:00:00 [facility] HIB 4 Dose Schedule 1997 Completed [facility] 00:00:00 [facility] Hep B, Adol or Pedi 1997 Completed [facility] Dosage 00:00:00 [facility] Polio (IPV/OPV) 1997 Completed [facility] 00:00:00 [facility] DTAP 1997 Completed [facility] 00:00:00 [facility] HIB 4 Dose Schedule 1997 Completed [facility] 00:00:00 [facility] Hep B, Adol or Pedi 1997 Completed [facility] of Dosage 00:00:00 [facility] Polio (IPV/OPV) 1997 Completed [facility] 00:00:00 [facility] DTAP 1997 Completed [facility] 00:00:00 [facility] HIB 4 Dose Schedule 1997 Completed [facility] 00:00:00 [facility] Hep B, Adol or Pedi 1997 Completed [facility] Dosage 00:00:00 [facility] Polio (IPV/OPV) 1997 Completed [facility] 00:00:00 [facility] DTAP 1997 Completed [facility] 00:00:00 [facility] HIB 4 Dose Schedule 1997 Completed [facility] 00:00:00 [facility] Hep B, Adol or Pedi 1997 Completed [facility] Dosage 00:00:00 [facility] Polio (IPV/OPV) 1997 Completed [facility] 00:00:00 [facility] DTAP 1997 Completed [facility] 00:00:00 [facility] HIB 4 Dose Schedule 1997 Completed [facility] 00:00:00 [facility] Hep B, Adol or Pedi 1997 Completed [facility] of Dosage 00:00:00 [facility] Polio (IPV/OPV) 1997 Completed [facility] 00:00:00 [facility] DTAP 1997 Completed [facility] 00:00:00 [facility] HIB 4 Dose Schedule 1997 Completed [facility] 00:00:00 [facility] Hep B, Adol or Pedi 1997 Completed [facility] of Dosage 00:00:00 [facility] Polio (IPV/OPV) 1997 Completed [facility] 00:00:00 [facility] DTAP 1997 Completed [facility] 00:00:00 [facility] HIB 4 Dose Schedule 1997 Completed [facility] 00:00:00 [facility] Hep B, Adol or Pedi 1997 Completed [facility] of Dosage 00:00:00 [facility] Polio (IPV/OPV) 1997 Completed [facility] 00:00:00 [facility] DTAP 1997 Completed [facility] 00:00:00 [facility] HIB 4 Dose Schedule 1997 Completed [facility] 00:00:00 [facility] Hep B, Adol or Pedi 1997 Completed [facility] of Dosage 00:00:00 [facility] Polio (IPV/OPV) 1997 Completed [facility] 00:00:00 [facility] DTAP 1997 Completed [facility] 00:00:00 [facility] HIB 4 Dose Schedule 1997 Completed [facility] 00:00:00 [facility] Hep B, Adol or Pedi 1997 Completed [facility] Dosage 00:00:00 [facility] Polio (IPV/OPV) 1997 Completed [facility] 00:00:00 [facility] DTAP 1997 Completed [facility] 00:00:00 [facility] HIB 4 Dose Schedule 1997 Completed [facility] 00:00:00 [facility] Hep B, Adol or Pedi 1997 Completed [facility] Dosage 00:00:00 [facility] Polio (IPV/OPV) 1997 Completed [facility] 00:00:00 [facility] DTAP 1997 Completed [facility] 00:00:00 [facility] HIB 4 Dose Schedule 1997 Completed [facility] 00:00:00 [facility] Hep B, Adol or Pedi 1997 Completed [facility] Dosage 00:00:00 [facility] Polio (IPV/OPV) 1997 Completed [facility] 00:00:00 [facility] DTAP 1997 Completed [facility] 00:00:00 [facility] HIB 4 Dose Schedule 1997 Completed [facility] 00:00:00 [facility] Hep B, Adol or Pedi 1997 Completed [facility] Dosage 00:00:00 [facility] Polio (IPV/OPV) 1997 Completed [facility] 00:00:00 [facility] DTAP 1997 Completed [facility] 00:00:00 [facility] HIB 4 Dose Schedule 1997 Completed [facility] 00:00:00 [facility] Hep B, Adol or Pedi 1997 Completed [facility] of Dosage 00:00:00 [facility] Polio (IPV/OPV) 1997 Completed [facility] 00:00:00 [facility] DTAP 1997 Completed [facility] 00:00:00 [facility] HIB 4 Dose Schedule 1997 Completed [facility] 00:00:00 [facility] Hep B, Adol or Pedi 1997 Completed [facility] Dosage 00:00:00 [facility] Polio (IPV/OPV) 1997 Completed [facility] 00:00:00 [facility] DTAP 1997 Completed [facility] 00:00:00 [facility] HIB 4 Dose Schedule 1997 Completed [facility] 00:00:00 [facility] Hep B, Adol or Pedi 1997 Completed [facility] Dosage 00:00:00 [facility] Polio (IPV/OPV) 1997 Completed [facility] 00:00:00 [facility] DTAP 1997 Completed [facility] 00:00:00 [facility] HIB 4 Dose Schedule 1997 Completed [facility] 00:00:00 [facility] Hep B, Adol or Pedi 1997 Completed [facility] Dosage 00:00:00 [facility] Polio (IPV/OPV) 1997 Completed [facility] 00:00:00 [facility] DTAP 1997 Completed [facility] 00:00:00 [facility] HIB 4 Dose Schedule 1997 Completed [facility] 00:00:00 [facility] Hep B, Adol or Pedi 1997 Completed [facility] Dosage 00:00:00 [facility] Polio (IPV/OPV) 1997 Completed [facility] 00:00:00 [facility] Vital Signs Vital Name Observation Time Observation Value Comments Source Systolic blood 2023-06-08 19:35:00 108 mm[Hg] [facility] pressure [facility] Diastolic blood 2023-06-08 19:35:00 69 mm[Hg] [facility] pressure [facility] Heart rate 2023-06-08 19:35:00 91 /min [facility] Respiratory rate 2023-06-08 19:35:00 18 /min [facility] Body height 2023-06-08 19:35:00 160 cm [facility] Body weight 2023-06-08 19:35:00 67.586 kg [facility] BMI 2023-06-08 19:35:00 26.39 kg/m2 [facility] Systolic blood 2023-05-17 16:40:00 112 mm[Hg] [facility] Diastolic blood 2023-05-17 16:40:00 72 mm[Hg] [facility] pressure [facility] Heart rate 2023-05-17 16:40:00 89 /min [facility] Respiratory rate 2023-05-17 16:40:00 18 /min [facility] Body height 2023-05-17 16:40:00 160 cm [facility] Body weight 2023-05-17 16:40:00 65.318 kg [facility] BMI 2023-05-17 16:40:00 25.51 kg/m2 [facility] Systolic blood 2023-04-11 15:23:00 108 mm[Hg] [facility] Diastolic blood 2023-04-11 15:23:00 71 mm[Hg] [facility] Heart rate 2023-04-11 15:23:00 77 /min [facility] Body temperature 2023-04-11 15:23:00 36.78 Eryn [facility] Respiratory rate 2023-04-11 15:23:00 18 /min [facility] Body height 2023-04-11 15:23:00 160 cm [facility] Body weight 2023-04-11 15:23:00 63.866 kg [facility] BMI 2023-04-11 15:23:00 24.94 kg/m2 [facility] Oxygen saturation in 2023-04-11 15:23:00 98 /min [facility] Arterial blood by [facility] Pulse oximetry Branch Systolic blood 2023-03-21 16:08:00 97 mm[Hg] [facility] Diastolic blood 2023-03-21 16:08:00 63 mm[Hg] [facility] Heart rate 2023-03-21 16:08:00 75 /min [facility] Body temperature 2023-03-21 16:08:00 36.67 Eryn [facility] Respiratory rate 2023-03-21 16:08:00 16 /min [facility] Body weight 2023-03-21 16:08:00 65.318 kg [facility] BMI 2023-03-21 16:08:00 26.34 kg/m2 [facility] Oxygen saturation in 2023-03-21 16:08:00 98 /min [facility] Arterial blood by [facility] Pulse oximetry Branch Systolic blood 2023-02-06 21:38:00 124 mm[Hg] [facility] Diastolic blood 2023-02-06 21:38:00 73 mm[Hg] [facility] Heart rate 2023-02-06 21:38:00 88 /min [facility] Body temperature 2023-02-06 21:38:00 37.33 Eryn [facility] Respiratory rate 2023-02-06 21:38:00 17 /min [facility] Body weight 2023-02-06 21:38:00 64.501 kg [facility] BMI 2023-02-06 21:38:00 26.01 kg/m2 [facility] Oxygen saturation in 2023-02-06 21:38:00 99 /min [facility] Arterial blood by [facility] Pulse oximetry Branch Systolic blood 2022-05-19 19:39:00 114 mm[Hg] [facility] Diastolic blood 2022-05-19 19:39:00 74 mm[Hg] [facility] Heart rate 2022-05-19 19:39:00 70 /min [facility] Respiratory rate 2022-05-19 19:39:00 20 /min [facility] Body height 2022-05-19 19:39:00 157.5 cm [facility] Body weight 2022-05-19 19:39:00 62.37 kg [facility] BMI 2022-05-19 19:39:00 25.15 kg/m2 [facility] Oxygen saturation in 2022-05-19 19:39:00 94 /min [facility] Arterial blood by [facility] Pulse oximetry Branch Procedures Procedure Date / Time Performing Clinician Source Performed US OB TRANSVAGINAL 2023-06-08 20:12:19 Laron Mooney [facility] POCT URINALYSIS W/O 2023-06-08 00:00:00 Laron Mooney ty [facility] SPECIFIC GRAVITY [facility] TOTAL BETA HCG ASSAY 2023-05-24 15:16:[address] [facility] POCT TEST 2023-05-17 00:00:[address] [facility] DISCLOSURE AND CONSENT, 2023-04-11 05:01:00 Doctor Unassigned, N o [facility] MEDICAL AND SURGICAL [facility] PROCEDURES ASSIGNMENT OF BENEFITS 2023-02-06 21:31:42 Doctor Unassigned, No [facility] Plan of Care Planned Activity Planned Date Details Comments Source Encounters Start End Encounter Admission Attending Care Care Encounter Source Date/Time Date/Time Type Type Clinicians Facility Department ID 2021-12-31 Outpatient X [facility] [id number] Univers 00:18:56 ity [facility] 2021-07-30 Outpatient P LARON MOONEY [facility] [id number] Univers 15:52:47 ity [facility] 2021-07-[address] [facility] [id number] Univers 14:32:12 ity [facility] 2021-07-[address] [facility] [id number] Univers [facility] 2023-07-06 2023-07-06 Outpatient R LARON MOONEY [facility] [id number] Univers 09:30:00 09:30:00 ity [facility] 2023-06-12 2023-06-12 Case Laron Mooney [facility] 1.2.066.989 [id number] Univers 00:00:00 00:00:00 Management Pietro GUERRERO 350.1.13.10 ity patricia PIZANO 4.2.7.2.686 Meredith shah PROFESSIO [id number] Nh dical NAL [address] BUILDING 2023-06-11 2023-06-11 Outpatient SFA SFA [id number] 08:36:02 08:36:02 [id number] F Octavio 2023-06-11 2023-06-11 Telephone Laron Mooney [facility] 1.2.840.114 [id number] Univers 00:00:00 00:00:00 Pietro ROSALES 350.1.13.10 it [place] [facility] [id number] [address] 2023-06-08 2023-06-08 Outpatient R LARON MOONEY [facility] [id number] Univers 14:30:00 14:57:46 ity of [facility] 2023-06-08 2023-06-08 Initial Vinicio [facility] 1.2.840.114 [id number] Univers 14:30:00 14:57:46 Pietro ROSALES 350.1.13.10 i ty of [place] [id number] [address] 2023-05-24 2023-05-24 Outpatient R EBENEZER ARAUJO [facility] [id number] Univers 10:30:00 14:26:49 [facility] 2023-05-24 2023-05-24 Specimen Collector Lab, Ang - [facility] 1.2.840.1 14 [id number] Univers 10:30:00 14:26:49 Visit Ebenezer Araujo [facility] 350.1.13.1 0 ity of [place] 4.2.7.2.686 Danny as YARIEL?BLEA [phone] Nh singh [place] [address] [place] [address] MEDICAL OFFICE BUILDING 2023-05-23 2023-05-23 Outpatient SFA [facility] [id number] 09:31:31 09:31:31 [id number] F Octavio 2023-05-18 2023-05-18 Telephone Jeremy [facility] 1.2.840.11 4 [id number] Univers 00:00:00 00:00:00 Ebenezer ROSALES 350.1.13.10 it [place] [id number] [address] 2023-05-172023-05-17 Specimen Collector Lab, Ang - Db [facility] 1.2.840.1 14 [id number] Univers 12:15:00 12:30:00 Visit Ebenezer Araujo [facility] 350.1.13.1 0 ity of [facility] 4.2.7.2.686 Danny as YARIEL?BLEA [id number] Nh dical [address] MEDICAL OFFICE BUILDING 2023-05-17 2023-05-17 Outpatient R EBENEZER ARAUJO [facility] [id number] Univers 11:30:00 11:53:18 [facility] 2023-05-17 2023-05-17 Office [facility] 1.2.840.114 [id number] Univers 11:30:00 11:53:18 Visit Ebenezer ROSALES 350.1.13.10 it y [place] [id number] [address] 2023-05-14 2023-05-14 Outpatient [facility] [id number] Univers 13:45:00 13:45:00 [facility] 2023-04-11 2023-04-11 Outpatient R LARON MOONEY [facility] [id number] Univers 09:00:00 10:33:03 ity of [facility] 2023-04-11 2023-04-11 Office Laron Mooney [facility] 1.2.354.774 [id number] Univers 09:00:00 10:33:03 Visit Pietro GUERRERO 350.1.13.10 i ty of [place] [id number] Nh singh [facility] [address] [facility] 2023-04-11 2023-04-11 Orders Doctor LESLEE 1.2.840.114 [id number] Univers 00:00:00 00:00:00 Only Unassigned, DEIRDRE 350.1.13.10 ity of [place] [facility] 4.2.7.2.686 Danny as [id number] [place] [address] Branch 2023-03-21 2023-03-21 Outpatient R ARABELLA [facility] [id number] Univers 11:00:00 11:25:56 KENYA itluana [facility] 2023-03-21 2023-03-21 Urgent Arabella Kenay [facility] 1.2.840.11 [id number] Univers 11:00:00 11:25:56 Care Unknown, Attending HEALTH 350.1.13.10 ity of [place] 4.2.7.2.686 Danny as YARIEL?BLEA [id number] [address] MEDICAL OFFICE [facility] 2023-02-06 2023-02-06 Urgent RupaYvan [facility] 1.2.840.114 [id number] Univers 16:40:00 17:00:00 Care Unknown, Attending [facility] 350.1.13.10 ity of [facility] 4.2.7.2.686 Danny as YARIEL?BLEA [id number] [address] OFFICE [facility] 2023-02-06 2023-02-06 Outpatient R RUPA [facility] [id number] Univers 16:40:00 16:40:00 [facility]ANLAUREN [facility] 2023-02-06 2023-02-06 Orders Doctor LESLEE 1..840.114 [id number] Univers 00:00:00 00:00:00 Only Unassigned, DEIRDRE 350.1.13.10 ity of [facility] 4.2.7.2.686 Danny as [id number] [address] 2022-09-12 2022-09-12 Outpatient R LARON MOONEY [facility] [id number] Univers 13:30:00 13:30:00 ity of [facility] 2022-06-14 2022-06-14 Telephone Betzy NDJOSEPH 1.2.816.219 [id number] Univers 00:00:00 00:00:00 Lisa GUERRERO 350.1.13.10 ity [place] [id number] [facility] [address] [facility] 2022-06-01 2022-06-01 Telephone Betzy [facility] 1.2.800.027 [id number] Univers 00:00:00 00:00:00 Sendil Oscar GUERRERO 350.1.13.10 ity of [place] [id number] [place] 952399 [facility] 2022-05-26 2022-05-26 [facility] 1.2.444.342 [id number] Univers 00:00:00 00:00:00 Sendil Oscar GUERRERO 350.1.13.10 ity [place] [id number] [address] 2022-05-25 2022-05-25 Outpatient R BETZY [facility] [id number] Univers 08:30:00 23:59:00 SENDIL ity [facility] 2022-05-25 2022-05-25 Outpatient R BETZY [facility] [id number] Univers 08:30:00 08:30:00 SENDIL ity [facility] 2022-05-19 2022-05-19 [facility] [id number] Univers 13:00:00 23:59:00 SENDIL ity [facility] 2022-05-19 2022-05-19 [facility] 1.2.840.114 [id number] Univers 15:00:00 15:30:00 Visit Lisa GUERRERO 350.1.13.[address] [facility] [place] [id number] [address] 2022-05-19 2022-05-19 [facility] [id number] Univers 15:00:00 15:00:00 SENDIL ity [facility] 2022-05-16 2022-05-16 Orders Doctor CAMILO 1.2.840.114 [id number] Univers 00:00:00 00:00:00 Only Unassigned, DEIRDRE 350.1.13.10 ity of [facility] 4.2.7.2.686 Danny as [id number] [facility] [address] 2022-05-15 2022-05-15 Outpatient R CARSON [facility] [id number] Univers 13:20:00 13:33:23 NEERU ity [facility] 2022-05-15 2022-05-15 [facility] 1.2.840.114 [id number] Univers 13:20:00 13:33:23 Care [facility] 350.1.13.10 it y of [place] 4.2.7.2.686 Danny as YARIEL?BLEA [id number] [facility] [address] MEDICAL OFFICE BUILDING 2022-05-15 2022-05-15 Telephone Betzy [facility] 1.2.550.295 [id number] Univers 00:00:00 00:00:00 Lisa GUERRERO 350.1.13.10 ity [place] [phone] [facility] [address] [facility] 2022-05-14 2022-05-14 Emergency [facility] 1.2.474.992 [id number] Univers 15:07:00 17:38:00 Stephanie GUERRERO 350.1.13.10 ity [place] [id number] [facility] [address] 2022-05-14 2022-05-14 Emergency X [facility] [id number] Univers 15:07:00 17:38:00 STEPHANIE wetzely [facility] 2022-05-14 2022-05-14 Case LESLEE Bo 1.2.840.114 [id number] Univers 00:00:00 00:00:00 Management Lisa GILMORE 350.1.13.10 [facility] 4.2.7.2.686 Danny as [id number] [facility] [address] 2022-03-29 2022-03-29 Telephone Laron Mooney [facility] 1.2.840.114 [id number] Univers 00:00:00 00:00:00 Pietro GUERRERO 350.1.13.10 i ty of [place] [id number] [address] 2022-03-29 2022-03-29 Orders Doctor LESLEE 1.2.840.114 [id number] Univers 00:00:00 00:00:00 Only Unassigned, DEIRDRE 350.1.13.10 ity of [place] [facility] 4.2.7.2.686 Danny as [id number] [address] 2022-03-07 2022-03-07 Office [facility] 1.2.483.750 [id number] Univers 13:00:00 13:50:06 Visit Cam ANGLEGERTRUDE 350.1.13.10 i ty of [place] [id number] [address] 2022-03-07 2022-03-07 [facility] [id number] Univers 13:00:00 13:50:06 ity of [facility] 2022-03-07 2022-03-07 [facility] [id number] Univers 13:00:00 13:00:00 ity of [facility] 2022-03-07 2022-03-07 Orders Doctor LESLEE 1.2.840.114 [id number] Univers 00:00:00 00:00:00 Only Unassigned, DEIRDRE 350.1.13.10 ity of [facility] 4.2.7.2.686 Danny as [id number] [address] 2022-02-13 2022-02-13 Routine [facility] 1.2.198.764 [id number] Univers 10:45:00 13:26:51 Cam [place] 350.1.13.10 ity of Visit [place] [id number] [address] 2022-02-13 2022-02-13 [facility] [id number] Univers 10:45:00 13:26:51 ity of [facility] 2022-01-30 2022-01-31 In[facility] [id number] Univers 05:46:00 17:00:00 ity of [facility] 2022-01-30 2022-01-31 Hospital Laron Mooney [facility] 1.2.840.114 [id number] Univers 05:46:00 17:00:00 Encounter Pietro GUERRERO 350.1.13.10 ity of [facility] 4.2.7.2.[place] [id number] [facility] [address] 2022-01-30 2022-01-30 Surgery Laron Mooney [facility] 1.2.832.955 [id number] Univers 08:00:00 09:29:00 Cam [place] 350.1.13.10 i ty of [place]2.7.2.[place] [id number] [facility] [address] 2022-01-28 2022-01-28 Specimen Collector Emmanuel, Dilan Lab Main [facility] 1.2.8 40.114 [id number] Univers 11:15:00 11:30:00 Visit Laron Mooney 350.1.13.10 ity of [place] [id number] Nh dical NAL [address] [facility] 2022-01-28 2022-01-28 Outpatient R LARON MOONEY [facility] [id number] Univers 11:15:00 11:15:00 ity of [facility] 2022-01-28 2022-01-28 Laboratory Only, Adc Test [facility] 1.2.840. 114 [id number] Univers 11:00:00 11:15:00 Only Laron Mooney 350.1.13.10 ity of [facility] 4.2.7.2.[place] [id number] [facility] [address] 2022-01-28 2022-01-28 Orders Doctor LESLEE 1.2.840.114 [id number] Univers 00:00:00 00:00:00 Only Unassigned, DEIRDRE 350.1.13.10 ity of [place] [facility] 4.2.7.2.686 Danny as [id number] [facility] [address] 2022-01-25 2022-01-25 Routine Laron Mooney [facility] 1.2.840.114 [id number] Univers 15:30:00 15:45:00 Anny YbarraGERTRUDE 350.1.13.10 ity of [place] [id number] [address] 2022-01-25 2022-01-25 Outpatient R AMADA [facility] [id number] Univers 15:30:00 15:30:00 ANNY ity [facility] 2022-01-18 2022-01-18 Outpatient R LARON MOONEY [facility] [id number] Univers 13:00:00 13:36:58 ity of [facility] 2022-01-18 2022-01-18 Routine Laron Mooney [facility] 1.2.438.860 [id number] Univers 13:00:00 13:36:58 Pietro GUERRERO 350.1.13.10 ity of [place] [id number] [address] 2022-01-18 2022-01-18 Outpatient R LARON MOONEY [facility] [id number] Univers 13:00:00 13:00:00 ity of [facility] 2022-01-11 2022-01-11 Outpatient [facility] [id number] Univers 14:00:00 14:54:05 ity of [facility] 2022-01-11 2022-01-11 Routine Laron Mooney [facility] 1.2.594.552 [id number] Univers 14:00:00 14:54:05 Cam [place] 350.1.13.10 ity of [place] [id number] [address] 2022-01-11 2022-01-11 Orders Doctor LESLEE 1.2.840.114 [id number] Univers 00:00:00 00:00:00 Only Unassigned, DEIRDRE 350.1.13.10 ity of [facility] 4.2.7.2.686 Danny as [id number] [facility] [address] 2022-01-02 2022-01-02 Outpatient R AMADA [facility] [id number] Univers 16:15:00 16:47:19 ANNY luana [facility] 2022-01-02 2022-01-02 Routine Laron Mooney [facility] 1.2.840.114 [id number] Univers 16:15:00 16:47:19 Anny Ybarra 350.1.13.10 ity of [place]2.[place] [id number] Nh dic[address] 2021-12-30 2021-12-30 Outpatient X RUTH [facility] [id number] Univers 18:12:00 23:05:00 JENNIFER gill [facility] 2021-12-30 2021-12-30 Emergency [place] [facility] 1.2. 840.114 [id number] Univers 18:12:00 23:05:00 Jennifer Weldon 350.1.13.10 ity of [place]2.7.2.[place] [id number] [facility] [address] 2021-12-30 2021-12-30 Telephone Laron Mooney [facility] 1.2.840.114 [id number] Univers 00:00:00 00:00:00 Pietro GUERRERO 350.1.13.10 i ty of [place] [id number] Nh dical NAL [address] [place] [address] 2021-12-30 2021-12-30 Orders Doctor LESLEE 1.2.840.114 [id number] Univers 00:00:00 00:00:00 Only Unassigned, DEIRDRE 350.1.13.10 ity of [facility] 4.2.7.2.686 Danny as [id number] [address] 2021-12-26 2021-12-26 Outpatient R AMADA [facility] [id number] Univers 10:30:00 10:30:00 ANNY gill [facility] 2021-12-12 2021-12-12 Outpatient R LARON MOONEY [facility] [id number] Univers 13:15:00 15:26:50 ity of [facility] 2021-12-12 2021-12-12 Routine Laron Mooney [facility] 1.2.316.306 [id number] Univers 13:15:00 15:26:50 Cam [place] 350.1.13.10 ity of Visit [facility] 4.2.7.2.[place] [id number] Nh dical NAL [address] [place] [address] 2021-12-12 2021-12-12 Routine Laron Mooney [facility] 1.2.069.405 [id number] Univers 13:15:00 15:26:50 Cam [place] 350.1.13.10 ity of Visit [place] [id number] Nh dical NAL [address] [place] [address] 2021-12-12 2021-12-12 Telephone Laron Mooney [facility] 1.2.840.114 [id number] Univers 00:00:00 00:00:00 Cam [place] 350.1.13.10 i ty of [facility] 4.2.7.2.[place] [id number] Nh dical NAL [address] [place] [address] 2021-12-05 2021-12-05 [facility] 1.2.524.220 [id number] Univers 00:00:00 00:00:00 Management Anny [place] 350.1.13.10 ity of [facility] 4.2.7.2.[place] [id number] Nh dical NAL [address] [place] [address] 2021-11-30 2021-11-30 Outpatient R AMADA [facility] [id number] Univers 14:45:00 14:57:17 ANNY ity of [facility] 2021-11-30 2021-11-30 [facility] 1.2.003.593 [id number] Univers 14:45:00 14:57:17 Anny [place] 350.1.13.10 ity of Visit [facility] 4.2.7.2.[place] [id number] Nh dical NAL [address] [facility] 2021-11-13 2021-11-13 Case Laron Mooney [facility] 1.2.569.924 [id number] Univers 00:00:00 00:00:00 Management Pietro YOLANDA 350.1.13.10 ity of [place] [id number] Nh dical NAL [address] [facility] 2021-11-09 2021-11-09 Specimen Collector 2, Adc Lab [facility] 1.2.840.114 [id number] Univers 14:00:00 14:00:00 Visit Laron Mooney Pietro YOLANDA 350.1.13.10 ity of [place] [id number] Nh dical NAL [address] [facility] 2021-11-09 2021-11-09 Outpatient R VINICIO LARON [facility] [id number] Univers 13:00:00 13:53:41 ity of [facility] 2021-11-09 2021-11-09 Routine Vinicio [facility] 1.2.376.706 [id number] Univers 13:00:00 13:53:41 Pietro GUERRERO 350.1.13.10 ity of [place] [id number] Nh dicia NAL [address] [facility] 2021-10-24 2021-10-24 Specimen Collector Ultrasound, [facility] 1.2 .840.114 [id number] Univers 11:15:00 12:00:00 Visit Jose Infante GLASS INSTALLER TECHNICIAN 350.1.13.10 ity of REGIONAL 4.2.7.2.686 Danny as MATERNAL [phone] Med ical & CHILD [address] [place] [address] 2021-10-24 2021-10-24 Outpatient P JOSE INFANTE [facility] [id number] Univers 11:15:00 11:15:00 JOSE INFANTE [facility] 2021-10-14 2021-10-14 Outpatient R LARON MOONEY [facility] [id number] Univers 11:30:00 12:37:28 ity of [facility] 2021-10-14 2021-10-14 Routine Laron Mooney [facility] [place] 1.2.840.114 [id number] Univers 11:30:00 12:37:28 Cam ABIMAEL 350.1.13.10 i ty of [place] [facility] [place] [phone] [address] 2021-09-19 2021-09-19 Case Amada [facility] 1.2.201.426 [id number] Univers 00:00:00 00:00:00 Management [facility] 350.1.13.[address] [facility] [place] [id number] Nh dical [address] 2021-09-16 2021-09-16 Outpatient R VINICIOLARON [facility] [id number] Univers 11:15:00 11:43:31 ity [facility] 2021-09-16 2021-09-16 Routine Vinicio [facility] NOGUERA 1.2.840.114 [id number] Univers 11:15:00 11:43:31 Pietro ROSALES 350.1.13.10 i ty of [place]2.[place] [id number] [address] 2021-09-16 2021-09-16 Outpatient R VINICIO [facility] [id number] Univers 11:15:00 11:15:00 ity [facility] 2021-09-15 2021-09-15 Outpatient P [facility] [id number] Univers 12:00:00 12:00:00 ity [facility] 2021-09-12 2021-09-12 Specimen Collector [facility] 1.2 .840.114 [id number] Univers 12:23:27 13:23:27 Visit Herbert Colby [employer] INST[employer]ER TECHNICIAN 350.1. 13.10 ity of [facility] 4.2.7.2.686 Danny as MATERNAL [id number] Med ical & CHILD [address] [place] [address] 2021-09-12 2021-09-12 [facility] [id number] Univers 12:30:00 12:30:00 KOELVIAOUVELI it y of HERBERT Shah [facility] 2021-09-12 2021-09-12 Outpatient P [facility] [id number] Univers 12:00:00 12:00:00 ity [facility] 2021-09-12 2021-09-12 Outpatient P [facility] [id number] Univers 08:00:00 08:00:00 KOUTROUVELI it y of HERBERT Shah [facility] 2021-09-07 2021-09-07 Telephone Laron Mooney [facility] 1.2.840.114 [id number] Univers 00:00:00 00:00:00 Pietro GUERRERO 350.1.13.10 i ty [place] [facility] [place] [id number] Nh dical NAL [address] [facility] 2021-08-24 2021-08-24 Specimen Collector 2, [facility] 1.2.840.114 [id number] Univers 13:07:21 15:23:43 Visit MooneyAlexeydena GUERRERO 350.1.13.10 ity [place] 4[place] [id number] Nh dical NAL [address] [facility] [facility] 2021-08-24 2021-08-24 Outpatient R [facility] [id number] Univers 13:15:00 13:15:00 ity [facility] 2021-08-24 2021-08-24 Outpatient R LARON MOONEY [facility] [id number] Univers 13:15:00 13:15:00 ity [facility] 2021-08-19 2021-08-19 Routine V[facility]io [facility] NOGUERA 1.2.840.114 [id number] Univers 11:21:36 12:04:28 Pietro ROSALES 350.1.13.10 i ty of [place] [phone] [address] 2021-08-19 2021-08-19 Outpatient R LARON MOONEY [facility] [id number] Univers 10:15:00 12:04:28 ity [facility] 2021-08-02 2021-08-02 Telephone Laron Mooney [facility] 1.2.840.114 [id number] Univers 00:00:00 00:00:00 Pietro GUERRERO 350.1.13.10 i [place] of [place] [phone] Nh dical NAL 134 [facility] 2021-07-27 2021-07-27 Case Amada [facility] 1.2.385.335 [id number] Univers 00:00:00 00:00:00 Management Anny Guerrero 350.1.13.10 ity of [place] [phone] Nh dical nal [address] [place] [address] 2021-07-26 2021-07-26 Routine Amada [facility] 1.2.840.114 [id number] Univers 11:20:43 11:54:36 Anny Rosales 350.1.13.10 i ty of Visit [place] [id number] [address] 2021-07-26 2021-07-26 Outpatient R AMADA [facility] [id number] Univers 11:15:00 11:15:00 ANNY gill [facility] 2021-07-25 2021-07-25 Outpatient R AMADA [facility] [id number] Univers 11:00:00 11:00:00 ANNY gill [facility] 2021-07-20 2021-07-20 Outpatient R [facility] [id number] Univers 11:00:00 [facility]:00:[facility]-07-20 2021-07-20 Specimen Collector 2, Adc Lab [facility] 1.2.840.114 [id number] Univers 09:33:12 09:38:55 Visit Laron Mooney 350.1.13.10 it[place] of [place] [phone] Nh dical nal 353 [facility] 2021-07-20 2021-07-20 Outpatient R LARON MOONEY [facility] [id number] Univers 09:30:00 09:30:00 ity of [facility] 2021-07-20 2021-07-20 Orders Doctor LESLEE 1.2.840.114 [id number] Univers 00:00:00 00:00:00 Only Unassigned, DEIRDRE 350.1.13.10 ity of [place] [facility] 4.2.7.2.686 Danny as [phone] [address] 2021-07-12 2021-07-12 Telephone Laron Mooney [facility] 1.2.840.114 [id number] Univers 00:00:00 00:00:00 Cam Hewitt 350.1.13.10 i ty of [place] [phone] Nh dicia nal [address] [place] [address] 2021-06-30 2021-06-30 Case Amada [facility] 1.2.216.352 [id number] Univers 00:00:00 00:00:00 Management Anny Guerrero 350.1.13.10 ity of [place] [phone] Nh dical nal [address] [place] [address] 2021-06-27 2021-06-27 Initial Laron Mooney [facility] 1.2.566.344 [id number] Univers 12:56:44 14:08:53 Pietro Guerrero 350.1.13.10 ity of Visit [place] [phone] Nh dic[address] 2021-06-27 2021-06-27 Outpatient R LARON MOONEY [facility] [id number] Univers 14:00:00 14:00:00 ity of [facility] 2021-06-27 2021-06-27 Orders Doctor CAMILO 1.2.840.114 [id number] Univers 00:00:00 00:00:00 Only Unassigned, DEIRDRE 350.1.13.10 ity of [place] [facility] 4.2.7.2.686 Danny as [phone] [address] 2021-06-17 2021-06-17 Telephone Chepe Mcmillan 1.2.840.114 [id number] Univers 00:00:00 00:00:00 , Lisa Parikh Vance 350.1.13.10 it[place] [phone] [address] 2021-06-13 2021-06-13 Outpatient R [facility] [id number] Univers 10:00:00 10:00:00 ity [facility] 2021-05-26 2021-05-26 Outpatient R [facility] [id number] Univers 08:00:00 08:00:00 ity [facility] 2020-11-25 2020-11-25 Outpatient R [facility] [id number] Univers 10:30:00 10:30:00 ity [facility] 2020-11-23 2020-11-23 Routine [facility] 1.2.829.782 [id number] Univers 14:01:45 14:34:40 Cam Hewitt 350.1.13.10 ity of Visit [place]2.[place] [phone] Nh dical [address] 2020-11-23 2020-11-23 Routine [facility] 1.2.117.100 [id number] 14:01:45 14:34:40 Cam Hewitt 350.1.13.10 Visit [place] 4.2.7.2.686 Professio [phone] [address] 2020-11-23 2020-11-23 Out[facility] [id number] Univers 14:15:00 14:15:00 ity [facility] 2020-11-11 2020-11-11 Outpatient R [facility] [id number] Univers 14:00:00 14:00:00 ity [facility] 2020-11-11 2020-11-11 Outpatient R [facility] [id number] Univers 11:15:00 11:15:00 ity [facility] 2020-11-11 2020-11-11 Nurse Nurse, Adc [facility] 1.2.840.114 [id number] [facility] 10:47:22 11:08:04 Visit Laron Mooney 350.1.13.10 ity of [place] 4.2.7.2.686 [facility] Professio [phone] Nh dical [facility] 134 [facility] 2020-11-11 2020-11-11 Nurse Nurse, [facility] 1.2.840.114 [id number] 10:47:22 11:08:04 Visit Miguel Angels Yolanda 350.1.13.10 [facility] [place] 4.2.7.2.686 Professio [phone] [address] 2020-10-28 2020-10-29 [facility] Laron Mooney [facility] 1.2.840.114 [id number] [facility] 05:30:00 22:30:00 Encounter Pietro Guerrero 350.1.13.10 ity of [place] 4.2.7.2.686 [facility] [phone] [facility] [address] 2020-10-28 2020-10-29 [facility] Laron Mooney [facility] 1.2.840.114 [id number] 05:30:00 22:30:00 Encounter Pietro Guerrero 350.1.13.10 [place] 4.2.7.2.686 [place] [phone] 083 2020-10-27 2020-10-27 Laboratory Only, [facility] 1.2.840.114 [id number] 10:13:02 10:28:02 Only Test Yolanda 350.1.13.10 [place] 4.2.7.2.686 [place] [id number] 353 2020-10-27 2020-10-27 Laboratory Only, [facility] Test [facility] 1.2.840. 114 [id number] Univers 10:13:02 10:28:02 Only Donell Saavedra 350.1.13.10 ity of [place] 4.2.7.2.686 [facility] [phone] [facility] [address] 2020-10-27 2020-10-27 Outpatient R [facility] [id number] Univers 10:00:00 10:00:00 ity of [facility] 2020-10-21 2020-10-21 Routine Laron Mooney 1.2.883.651 [id number] 14:52:05 16:19:18 Cam Hewitt 350.1.13.10 Visit [place] 4.2.7.2.686 Professio [phone] [address] 2020-10-21 2020-10-21 Routine Laron Mooney 1.2.123.595 [id number] [facility] 14:52:05 16:19:18 Cam Hewitt 350.1.13.10 ity of Visit [place] [phone] [facility] [address] 2020-10-21 2020-10-21 Outpatient R LARON MOONEY [facility] [id number] [facility] 14:45:00 14:45:00 ity of [facility] 2020-10-21 2020-10-21 Orders Doctor LESLEE 1.2.840.114 [id number] 00:00:00 00:00:00 Only Unassigned, DEIRDRE 350.1.13.10 [place] [facility] 4.2.7.2.[id number] [facility] 2020-10-21 2020-10-21 Orders Doctor LESLEE 1.2.840.114 [id number] [facility] 00:00:00 00:00:00 Only Unassigned, DEIRDRE 350.1.13.10 ity of [place] [facility] 4.2.7.2.686 Danny as [phone] [address] 2020-10-14 2020-10-14 Routine Laron Mooney NDJOSEPH 1.2.046.452 [id number] 15:47:58 16:38:20 Cam Hewitt 350.1.13.10 Visit [place] 4.2.7.2.686 Professio [phone] [address] 2020-10-14 2020-10-14 Routine Laron Mooney NDJOSEPH 1.2.704.957 [id number] [facility] 15:47:58 16:38:20 Cam Hewitt 350.1.13.10 ity of Visit [place] [phone] N[facility] dical [facility] 134 [facility] 2020-10-14 2020-10-14 Specimen Collector 2, Adc Lab [facility] 1.2.840.114 [id number] 15:31:53 15:46:53 Visit Hewitt 350.1.13.10 [place] 4.2.7.2.686 Professio [phone] [address] 2020-10-14 2020-10-14 Specimen Collector 2, Adc Lab [facility] 1.2.840.114 [id number] [facility] 15:31:53 15:46:53 Visit Laron Mooney [place] 350.1.13.10 ity of [place]2.[place] [phone] [address] 2020-10-14 2020-10-14 Outpatient R MOONEY LARON [facility] [id number] Univers 15:45:00 15:45:00 ity of [facility] 2020-10-14 2020-10-14 Case Laron Mooney [facility] 1.2.188.339 [id number] 00:00:00 00:00:00 Management Cam Hewitt 350.1.13.10 [place] 4.2.7.2.686 Professio [phone] [address] 2020-10-14 2020-10-14 Case Laron Mooney [facility] 1.2.496.583 [id number] [facility] 00:00:00 00:00:00 Management Cam Hewitt 350.1.13.10 ity of [place] [phone] Nh dical [address] 2020-10-11 2020-10-11 Telephone Laron Mooney NDJOSEPH 1.2.840.114 [id number] 00:00:00 00:00:00 Cam Hewitt 350.1.13.10 [place] 4.2.7.2.686 Professio [phone] [address] 2020-10-11 2020-10-11 Telephone Vinicio Laron [facility] 1.2.840.114 [id number] Univers 00:00:00 00:00:00 Cam Hewitt 350.1.13.10 i ty of [place] [phone] Nh dic[address] 2020-10-07 2020-10-07 Routine Laron Mooney [facility] 1.2.837.812 [id number] 08:18:49 09:18:03 Cam Hewitt 350.1.13.10 Visit [place] 4.2.7.2.686 Professio [phone] [address] 2020-10-07 2020-10-07 Routine Laron Mooney [facility] 1.2.879.803 [id number] Univers 08:18:49 09:18:03 Cam Hewitt 350.1.13.10 ity of Visit [place] [phone] [address] 2020-10-07 2020-10-07 Outpatient R VINICIO LARON [facility] [id number] Univers 08:15:00 08:15:00 ity [facility] 2020-10-06 2020-10-06 Outpatient R AMADA [facility] [id number] Univers 09:45:00 09:45:00 ANNY ity [facility] 2020-10-06 2020-10-06 Telephone [facility] 1.2.840.114 [id number] 00:00:00 00:00:00 Cam Hewitt 350.1.13.10 [place] 4.2.7.2.686 Professio [phone] [address] 2020-10-06 2020-10-06 Telephone [facility] 1.2.840.114 [id number] Univers 00:00:00 00:00:00 Cam Hewitt 350.1.13.10 i ty of [place] [phone] Nh dic[address] 2020-10-02 2020-10-02 Emergency Edgardo Recinos [facility] 1.2.840. 114 [id number] 14:07:00 19:02:00 Laron Mooney [place] 350.1.13.10 [place] 4.2.7.2.686 [place] [phone] [facility] 2020-10-02 2020-10-02 Emergency Edgardo Recinos [facility] 1.2.840. 114 [id number] [facility] 14:07:00 19:02:00 Laron Mooneyton 350.1.13.10 ity of [place].2.[place] [phone] [facility] [address] [place] [address] 2020-09-22 2020-09-22 Routine Laron Mooney [facility] 1.2.828.963 [id number] Univers 15:22:19 15:43:16 Cam Hewitt 350.1.13.10 ity of Visit [place]2.[place] [phone] Nh dical [address] 2020-09-22 2020-09-22 Routine Laron Mooney [facility] 1.2.373.152 [id number] 15:22:19 15:43:16 Cam Hewitt 350.1.13.10 Visit [place] 4.2.7.2.686 Professio [phone] [address] 2020-09-22 2020-09-22 Outpatient R LARON MOONEY [facility] [id number] Univers 15:30:00 15:30:00 ity of [facility] 2020-09-13 2020-09-13 Orders Doctor CAMILO 1.2.840.114 [id number] Univers 00:00:00 00:00:00 Only Unassigned, DEIRDRE 350.1.13.10 ity of [place] [facility] 4.2.7.2.686 Danny as [phone] [facility] [address] 2020-09-13 2020-09-13 Orders Doctor LESLEE 1.2.840.114 [id number] 00:00:00 00:00:00 Only Unassigned, DEIRDRE 350.1.13.10 [place] [facility] 4.2.7.2.686 [phone] 009 2020-09-08 2020-09-08 Outpatient R AMADA [facility] [id number] Univers 16:30:00 16:30:00 ANNY ity of [facility] 2020-09-08 2020-09-08 Routine Amada, [facility] 1.2.211.339 [id number] Univers 10:04:39 10:19:39 Anny Hewitt 350.1.13.10 ity of Visit [place] [phone] Nh dical [address] 2020-09-08 2020-09-08 [facility] 1.2.544.477 [id number] 10:04:39 10:19:39 Anny Hewitt 350.1.13.10 Visit [place] 4.2.7.2.686 Professio [phone] [address] 2020-09-04 2020-09-04 Outpatient Harms, [facility] [id number] [facility] 20:56:00 20:56:00 Mart 2020-09-03 2020-09-03 Orders Doctor LESLEE 1.2.840.[id number] [place] [address] 00:00:00 00:00:00 Only Unassigned, DEIRDRE 350.1.13.10 ity of [place] [facility] 4.2.7.2.686 Danny as [phone] [address] 2020-09-01 2020-09-01 Case Laron Mooney [facility] 1.2.471.804 [id number] Univers 00:00:00 00:00:00 Management Cam Hewitt 350.1.13.10 ity of [place] [phone] Nh dic[address] 2020-09-01 2020-09-01 Case Laron Mooney [facility] 1.2.319.908 [id number] 00:00:00 00:00:00 Management Cam Hewitt 350.1.13.10 [place] 4.2.7.2.686 Professio [phone] [address] 2020-08-25 2020-08-25 Routine Laron Mooney [facility] 1.2.305.681 [id number] [facility] 09:47:40 10:28:07 Cam Hewitt 350.1.13.10 ity of Visit [place] [phone] Me dical nal 134 [facility] 2020-08-25 2020-08-25 Outpatient R LARON MOONEY [facility] [id number] Univers 09:45:00 09:45:00 ity of [facility] 2020-08-11 2020-08-11 Outpatient R [facility] [id number] Univers 10:15:00 10:15:00 ity of [facility] 2020-08-11 2020-08-11 Specimen Collector 2, Adc Lab [facility] 1.2.840.114 [id number] Univers 09:10:01 09:25:01 Visit Laron Mooney Pietro Guerrero 350.1.13.10 ity of [place] [phone] Me dical nal 353 [facility] 2020-07-30 2020-07-30 Specimen Collector Ultrasound, Adc [facility] 1.2 .840.114 [id number] Univers 14:09:41 15:09:41 Visit Harry Chisholm 350.1.13.10 ity of [place].2.[place] [phone] Nh dical nal [address] [place] [address] 2020-07-30 2020-07-30 Outpatient P [facility] [id number] Univers 14:00:00 14:00:00 ity of [facility] 2020-07-28 2020-07-28 Routine Mooney Laron [facility] 1.2.538.382 [id number] Univers 13:02:23 13:51:17 Pietro Guerrero 350.1.13.10 ity of Visit [place]2.[place] [phone] Me dical nal 134 [facility] 2020-07-28 2020-07-28 Outpatient R ALEXEY MOONEYEN [facility] [id number] Univers 13:00:00 13:00:00 ity of [facility] 2020-07-28 2020-07-28 Letter Doctor CAMILO 1.2.840.114 [id number] Univers 00:00:00 00:00:00 (Out) Unassigned, DEIRDRE 350.1.13.10 ity of [place] [facility] 4.2.7.2.686 Danny as [phone] [facility] [address] 2020-07-13 2020-07-13 Letter Vinicio Laron [facility] 1.2.086.130 [id number] Univers 00:00:00 00:00:00 (Out) Cam Hewitt 350.1.13.10 i ty of [place] [phone] [facility] 134 [facility] 2020-07-10 2020-07-10 Emergency [facility] 1.2.093.589 [id number] Univers 06:03:00 06:42:00 Waotoniel S Hewitt 350.1.13.10 ity of [place] 4[place].2.[place] [phone] [facility] [address] 2020-07-08 2020-07-08 Orders Doctor LESLEE 1.2.840.114 [id number] Univers 00:00:00 00:00:00 Only Unassigned, DEIRDRE 350.1.13.10 ity of [place] [facility] 4.2.7.2.686 Danny as [phone] [facility] [address] 2020-07-01 2020-07-01 Telephone Laron Mooney [facility] 1.2.840.114 [id number] Univers 00:00:00 00:00:00 Cam Hewitt 350.1.13.10 i ty of [place] [phone] [facility] 134 [facility] 2020-06-30 2020-06-30 Initial Laron Mooney [facility] 1.2.270.822 [id number] Univers 14:52:17 16:18:50 Cam Hewitt 350.1.13.10 ity of Visit [place]2.[place] [phone] Nh dical nal [address] [place] [address] 2020-06-30 2020-06-30 Outpatient R LARON MOONEY [facility] [id number] Univers 14:30:00 14:30:00 ity of [facility] 2020-06-30 2020-06-30 Orders Doctor LESLEE 1.2.840.114 [id number] Univers 00:00:00 00:00:00 Only Unassigned, DEIRDRE 350.1.13.10 ity of [place] [facility] 4.2.7.2.686 Danny [phone] [facility] [address] 2020-06-21 2020-06-21 [facility] 1.2.840.114 [id number] Univers 02:25:00 03:35:00 Encounter Jennifer Guerrero 350.1.13.10 ity of [place] 4.2.7.2.686 [facility] [phone] [facility] [address] 2020-06-21 2020-06-21 Outpatient P [facility] [id number] Univers 02:25:00 02:25:00 JENNIFER [facility] 2019-10-11 2019-10-12 Emergency X [facility] [id number] Univers 23:44:50 04:24:00 STEPHANIE [facility] Results Test Description Test Time Test Comments Results Result Comments Source POCT URINALYSIS W/O SPECIFIC GRAVITY 2023-06-08 19:54:00 Test Item Value Reference Range Interpretation Comme [...] code = 3257) N/A Negative - Negative [id number] 16:44:00 Test Item Value Reference Range Interpretation Comments POCT PREG (test code = 1605) Positive faint On board controls acceptable with C Yes Line (test code = 3574) POCT PREG LOT # (test code = 3575) POCT PREG TEST DATE (test code = 3576) [facility] [id number] 16:44:00 Test Item Value Reference Range Interpretation Comments POCT PREG (test code = 1605) Positive faint On board controls acceptable with C Yes Line (test code = 3574) POCT PREG LOT # (test code = 3575) POCT PREG TEST DATE (test code = 3576) [facility] Notes Date/Time Note Provider Source 2023-06-11 Formatting of this note might be differe nt from the original. 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 Pt verbalized understanding. 2023-06-11 Formatting of this note might be differe nt from the original. Melida Thacker [facility] 08:51:12-00:00 Pt calling to get a dental c learance for her appointment. They said the need this clearance today by 1pm. Would like to be called when its ready to pick Electronically signed by Melida Thacker at 06/01 8:54 AM CDT 2023-06-08 [facility] 14:30:00-00:00 Age: [age] year old GA: 6w3d CD x 3 - Op note reviewed: repeat LTCD on 01/30/22 and mi nimal adhesions noted - repeat CD at 39 wks unless clinically indicate d otherwise Unsure LMP - Nexplanon removed on 04/11/23 - - Transvaginal USG for FHT : Single live IUP measured 6 3/7 weeks. Will date by this ultrasound unless clinically indicated otherwise New OB labs today. No compla ints. Discussed do's and don'ts of , safe foods, safe medications. Reviewed Zika virus precautions. I discussed the call schedule and that I might not be the physici an delivering her. I discuss ed I deliver my patients at [facility]. Expectations for weight gain this include 25-35 pounds. Encouraged to call if have any additional questions o r concerns. Discussed aneupl oidy and carrier screening; patient opts for Panor[employer]. Horizon carrier negative. Have not received COVID vacc linda. Counseled and recommend COVID vaccines. Patient declined Declined flu vaccines Discussed about COVID-19/flu precautions. Social distancing, frequent hand washings, wearing face mask, signs/symptoms for testing and to follow CDC recommendations discussed. Discussed with patient that she can have HEALTHY support with her during her delivery (which is subject to change depends on the COVID pandemic) Next visit in 4 week. Electronically signed by Laron Mooney MD at 3:18 PM CDT 2023-05-24 Formatting of this note is different from the or iginal. [facility] 10:30:00-00:00 Images from the original note were not included. Per pt she is here to do ord ers for Laron Mooney MD- ordered labs by Ebenezer Araujo NP .Anthony Simon 05/24/2023 10:12 AM Venipuncture collection perf ormed by clean technique on the left anticubitus. Total of 1 attempts were made. Slight pressure and a bandage/dressing were applied to the site(s). The patient experienced n o complications. The followi ng specimens were processed according to instructions and sent to [facility] laboratories per lab order on 05/24/2023 : LT BLUE SST 1 RED LAV PPT DK GREEN (LiHep) DK GREEN (SodH) ROSE DK BLUE (K2) DK BLUE (S) ACD Blood Culture NIPT/NTD Electronically signed by Anthony Simon at 10:16 AM T 2023-05-24 [facility] 10:30:00-00:00 Beta HCT 876.34 Ebenezer Araujo NP 05/24/2023 2:47 PM 2023-05-18 [facility] 09:36:46-00:00 Images from the original note were not included. Lab work ordered and appointment scheduled. T 2023-05-17 Formatting of this note is different from the or iginal. [facility] 12:15:00-00:00 Images from the original note were not included. Venipuncture collection perf ormed by clean technique on the left anticubitus. Total of 1 attempts were made. Slight pressure and a bandage/dressing were applied to the site(s). The patient experienced n o complications. The followi ng specimens were processed according to instructions and sent to [facility] laboratories per lab order on 05/17/2023: LT BLUE SST 1 RED LAV PPT DK GREEN (LiHep) DK GREEN (SodH) ROSE DK BLUE (K2) DK BLUE (S) ACD Blood Culture NIPT/NTD
--- NOTE | 2023-06-12 23:13 | ER ---
Nurse's Notes [facility] Name: Yesica Islas Age: 27 yrs Sex: Female : 1995 Arrival Date: 06/12/2023 Time: 22:29 Bed 6 Private MD: None, None Diagnosis: Dental caries, unspecified-planned root canal Presentation: 06/12 23:05 Chief complaint: Patient states: was dentist on Sunday, was given abx and told to as6 return for root canal and has increased pain and swelling today. Coronavirus screen: At this time, the client does not indicate any symptoms associated with coronavirus-19. Ebola Screen: No symptoms or risks identified at this time. Initial Sepsis Screen: Does the patient meet any 2 criteria? No. Patient's initial sepsis screen is negative. Does the patient have a suspected source of infection? No. Patient's initial sepsis screen is negative. Risk Assessment: Do you want to hurt yourself or someone else? Patient reports no desire to harm self or others. Onset of symptoms was June 12, 2023. 23:05 Acuity: KOFI 4 as6 23:05 Method Of Arrival: Ambulatory as6 Triage Assessment: 23:41 EENT: Reports. 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 - Social history:: Smoking status: Patient denies any tobacco usage or history of. Screenin:39 Abuse screen: Denies threats or abuse. Denies injuries from another. Nutritional ha1 screening: No deficits noted. Tuberculosis screening: No symptoms or risk factors identified. Assessment: 23:09 General: Appears uncomfortable, Behavior is calm, cooperative. Pain: Complains of pain ha1 in right lower tooth ache Pain does not radiate. Pain currently is 10 out of 10 on a pain scale. Neuro: Level of Consciousness is awake, alert, obeys commands, Oriented to person, place, time, situation. Cardiovascular: Patient's skin is warm and dry. Respiratory: Airway is patent Respiratory effort is even, unlabored, Respiratory pattern is regular, symmetrical. Musculoskeletal: Circulation, motion, and sensation intact. Range of motion: intact in all extremities. Vital Signs: 23:05 Pulse 87; Resp 16 S; Pulse Ox 99% on R/A; as6 23:05 BP 108 / 79; Temp 98.2(TE); Weight 67.59 kg (R); Height 5 ft. 3 in. (R); Pain 9/10; as6 23:39 BP 120 / 80; Pulse 83; Resp 16 S; Pulse Ox 99% on R/A; ha1 23:05 Body Mass Index 26.39 (67.59 kg, 160.02 cm) as6 23:05 Pain Scale: Adult as6 ED Course: 22:31 Patient arrived in ED. es 22:32 None, None is Private Physician. es 22:35 Sadia Lovelace FNP-C is [facility]. snw 22:35 Milton Jasso MD is Attending Physician. snw 23:05 Arm band placed on. as6 23:07 Triage completed. as6 23:09 Patient has correct armband on for positive identification. Bed in low position. Call ha1 light in reach. Side rails up X 1. 23:40 Provided Education on: follow up with dentist . ha1 23:40 No provider procedures requiring assistance completed. Patient did not have IV access ha1 during this emergency room visit. Administered Medications: 23:10 CANCELLED (Inappropriate at this time): Ketorolac IM 30 mg IM once snw 23:30 Drug: HYDROcodone-acetaminophen PO 5 mg-325 mg 1 tabs Route: PO; ha1 23:41 Follow up: Response: No adverse reaction; Pain is decreased; RASS: Alert and Calm (0) ha1 Medication: 23:40 VIS not applicable for this client. ha1 Outcome: 23:13 Discharge ordered by . snw 23:40 Discharged to home ambulatory, with family. ha1 23:40 Condition: stable 23:40 Discharge instructions given to patient, family, Instructed on discharge instructions, follow up and referral plans. Demonstrated understanding of instructions, follow-up care. 23:41 Patient left the ED. ha1 Signatures: Sadia Lovelace FNP-C FOOD BEVERAGE ATTENDANT-Magdalena Del Cid Ashby, RN RN as6 Chang, Karen, RN RN ha1
--- NOTE | 2023-06-12 23:13 | EDPHYS ---
Physician Documentation [facility] Name: Yesica Islas Age: 27 yrs Sex: Female : 1995 Arrival Date: 06/12/2023 Time: 22:29 Bed 6 Private MD: None, None ED Physician Milton Jasso HPI: 06/12 23:16 This 27 yrs old Female presents to ER via Ambulatory with complaints of snw Toothache. 23:16 The patient presents with pain, swelling. The problem is located in the right snw submandibular area. Onset: The symptoms/episode began/occurred acutely. Duration: The symptoms are continuous. Modifying factors: The symptoms are alleviated by nothing. Severity of symptoms: At their worst the symptoms were moderate. The patient has experienced similar episodes in the past. Pt came to this ED for management. Given Augmentin, apparently went to Dentist Sunday (yesterday) and was told to schedule a root canal. 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 - Social history:: Smoking status: Patient denies any tobacco usage or history of. ROS: 23:14 Constitutional: Negative for fever, chills, and weight loss, Eyes: Negative for injury, snw pain, redness, and discharge, ENT: Negative for injury, pain, and discharge, right mandibular pain from dental origin Neck: Negative for injury, pain, and swelling, Cardiovascular: Negative for chest pain, palpitations, and edema, Respiratory: Negative for shortness of breath, cough, wheezing, and pleuritic chest pain, Abdomen/GI: Negative for abdominal pain, nausea, vomiting, diarrhea, and constipation, Back: Negative for injury and pain, : Negative for injury, bleeding, discharge, and swelling, + MS/Extremity: Negative for injury and deformity, Skin: Negative for injury, rash, and discoloration, Neuro: Negative for headache, weakness, numbness, tingling, and seizure, Psych: Negative for depression, anxiety, suicide ideation, homicidal ideation, and hallucinations. Exam: 23:13 Constitutional: This is a well developed, well nourished patient who is awake, alert, snw and in no acute distress. Head/Face: Normocephalic, atraumatic. Eyes: Pupils equal round and reactive to light, extra-ocular motions intact. Lids and lashes normal. Conjunctiva and sclera are non-icteric and not injected. Cornea within normal limits. Periorbital areas with no swelling, redness, or edema. ENT: Nares patent. No nasal discharge, no septal abnormalities noted. Tympanic membranes are normal and external auditory canals are clear. Oropharynx with no redness, swelling, or masses, exudates, or evidence of obstruction, uvula midline. Mucous membranes moist. right mandibular edema, front molar with filling Neck: Trachea midline, no thyromegaly or masses palpated, and no cervical lymphadenopathy. Supple, full range of motion without nuchal rigidity, or vertebral point tenderness. No Meningismus. Chest/axilla: Normal chest wall appearance and motion. Nontender with no deformity. No lesions are appreciated. Cardiovascular: Regular rate and rhythm with a normal S1 and S2. No gallops, murmurs, or rubs. Normal PMI, no JVD. No pulse deficits. Respiratory: Lungs have equal breath sounds bilaterally, clear to auscultation and percussion. No rales, rhonchi or wheezes noted. No increased work of breathing, no retractions or nasal flaring. Abdomen/GI: Soft, non-tender, with normal bowel sounds. No distension or tympany. No guarding or rebound. No evidence of tenderness throughout. Vital Signs: 23:05 Pulse 87; Resp 16 S; Pulse Ox 99% on R/A; as6 23:05 BP 108 / 79; Temp 98.2(TE); Weight 67.59 kg (R); Height 5 ft. 3 in. (R); Pain 9/10; as6 23:39 BP 120 / 80; Pulse 83; Resp 16 S; Pulse Ox 99% on R/A; ha1 23:05 Body Mass Index 26.39 (67.59 kg, 160.02 cm) as6 23:05 Pain Scale: Adult as6 MDM: 23:02 Patient medically screened. snw 23:15 Differential diagnosis: dental caries, gingivitis, dental abscess. Data reviewed: vital snw signs, nurses notes. I considered the following discharge prescriptions or medication management in the emergency department Medications were administered in the Emergency Department. See MAR. Counseling: I had a detailed discussion with the patient and/or guardian regarding the historical points, exam findings, and any diagnostic results supporting the discharge/admit diagnosis, the need for outpatient follow up, for definitive care. Special discussion: Based on the history and exam findings, there is no indication for further emergent testing or inpatient evaluation. I discussed with the patient/guardian the need to see a dentist for further evaluation of the symptoms. Administered Medications: 23:10 CANCELLED (Inappropriate at this time): Ketorolac IM 30 mg IM once snw 23:30 Drug: HYDROcodone-acetaminophen PO 5 mg-325 mg 1 tabs Route: PO; ha1 23:41 Follow up: Response: No adverse reaction; Pain is decreased; RASS: Alert and Calm (0) ha1 Disposition: 06/13 03:48 Co-signature as Attending Physician, Milton Jasso MD I agree with the assessment sp4 and plan of care. I reviewed the patient's care provided by the Advanced Practice Provider and agree with the diagnosis and treatment plan. Disposition Summary: 06/12/23 23:13 Discharge Ordered Location: Home snw Condition: Stable snw Diagnosis - Dental caries, unspecified - planned root canal snw Followup: snw - With: Emergency Department - When: As needed - Reason: Worsening of condition Followup: snw - With: Private Physician - When: Tomorrow - Reason: Recheck today's complaints, Continuance of care, Re-evaluation by your physician Discharge Instructions: - Discharge Summary Sheet snw - Dental Caries, Adult snw - Dental Pain snw - Root Canal snw - Diet and Dental Disease snw Forms: - Medication Reconciliation Form snw - Thank You Letter snw - Antibiotic Education snw - Prescription Opioid Use snw - Patient Portal Instructions snw - Leadership Thank You Letter snw Signatures: Sadia Lovelace FNP-C HAND CANDY MOLDER-Csnw Chris Montalvo RN RN as6 Karen Chang RN RN ha1 Milton Jasso MD MD sp4 Corrections: (The following items were deleted from the chart) 06/12 23:10 23:08 Ketorolac IM 30 mg IM once ordered. snw snw 23:15 23:14 Constitutional: Negative for fever, chills, and weight loss, Eyes: Negative for snw injury, pain, redness, and discharge, ENT: Negative for injury, pain, and discharge, Neck: Negative for injury, pain, and swelling, Cardiovascular: Negative for chest pain, palpitations, and edema, Respiratory: Negative for shortness of breath, cough, wheezing, and pleuritic chest pain, Abdomen/GI: Negative for abdominal pain, nausea, vomiting, diarrhea, and constipation, Back: Negative for injury and pain, : Negative for injury, bleeding, discharge, and swelling, + MS/Extremity: Negative for injury and deformity, Skin: Negative for injury, rash, and discoloration, Neuro: Negative for headache, weakness, numbness, tingling, and seizure, Psych: Negative for depression, anxiety, suicide ideation, homicidal ideation, and hallucinations, snw
[2023-06-12] MEDS ORDERED: HYDROCODONE/APAP 5/325 MG TAB ONE (23:44)
[2023-06-12 23:54] VITALS: TEMP 98.2; O2SAT 99
[2023-06-12 23:56] VITALS: BP 120/80
== END 2023-06-12 23:41 | disposition home or self-care (01) ==
LOC: ER 22:29
DX: O26.90 Pregnancy related conditions, unspecified, unspecified trimester (principal); K02.9 Dental caries, unspecified; Z3A.00 Weeks of gestation of pregnancy not specified
CPT/HCPCS: 99283

== ENCOUNTER 2023-07-17 19:32 | Emergency (ER) | payer OTHER ==
--- OUTSIDE RECORDS SUMMARY | 2023-07-17 19:40 | XMS REPORT | Continuity of Care Document ---
:1995 Author Organization [facility] t Address [address] [place] [address] Care Team Providers Name Role Phone Pcp, Patient Does Not Have A Primary Care Physician [phone] LARON MOONEY Attending Clinician Unavailable Laron Mooney MD Attending Clinician Lab, Ang - Db Attending Clinician Unavailable Doctor Unassigned, [place] Attending Clinician Unavailable EBENEZER ARAUJO Attending Clinician Unavailable EBENEZER ARAUJO Attending Clinician Unavailable KENYA BELL Attending Clinician Unavailable Kenya Fry Attending Clinician Unknown, Attending Attending Clinician Unavailable Yvan Nickerson Attending Clinician YVAN GOODE Attending Clinician Unavailable Betzy CRAIG, Sendmike K.H. Attending Clinician LISA BO K.H. Attending Clinician Unavailable NEERU BYRD Attending Clinician Unavailable Neeru Byrd MD Attending Clinician STEPHANIE RO Attending Clinician Unavailable Stephanie Ro MD Attending Clinician Pob, Adc Lab Main Attending Clinician Unavailable Only, Adc Test Attending Clinician Unavailable Anny Ybarra PA-C Attending Clinician ANNY YBARRA Attending Clinician Unavailable JENNIFER WELDON Attending Clinician Unavailable Jaswant Kirby Attending Clinician Jennifer Weldon MD Attending Clinician 2, [facility] Lab Attending Clinician Unavailable Ultrasound, Ang-Mfm Attending Clinician Unavailable Jose Infante MD Attending Clinician JOSE INFANTE Attending Clinician Unavailable JOSE INFANTE Attending Clinician Unavailable Ivette Blum MD, Herbert Attending Clinician [phone] HERBERT COLBY Attending Clinician Unavailable Chepe RN, Lisa Parikh Attending Clinician Unavailable Nurse, [facility] Women's [facility] Attending Clinician Unavailable Donell Saavedra MD Attending Clinician Edgardo Recinos MD Attending Clinician Mart Steele Attending Clinician Unavailable Ultrasound, [facility] Mf Attending Clinician Unavailable Harry Chisholm MD Attending Clinician JENNIFER WELDON Admitting Clinician Unavailable LARON MOONEY Admitting Clinician Unavailable LISA BO Admitting Clinician Unavailable Laron Mooney MD Admitting Clinician Jennifer Weldon MD Admitting Clinician STEPHANIE RO Admitting Clinician Unavailable Payers Payer Name Policy Type Policy Number Effective Date Expiration Date [facility] [id number] 2018 CHOICE MEDICAID 00:00:00 Problems Condition Condition Condition Status Onset Resolution Last Treating Co mments Source Name Details Category Date Date Treatment Clinician Date High-risk High-risk Disease Active 2022-10 Uni vers 0-06 ity of in first in first 00:00: [place] trimester trimester 00 Medi [place] Branch Chlamydia Chlamydia Disease Active Uni vers trachomati trachomati 9-12 it y of s s 00:00: [place] infection infection 00 Medi raymond of lower of lower Branch genitourin genitourin cuca sites cuca sites Disease Active Univers control control 8-17 ity of counseling counseling 00:00: Michael jean baptistes 00 [facility] Disease Active Uni vers examinatio examinatio 8-17 it y of n [place] test, [place] Med[place] result result Branch BMI BMI Disease Active Univers 25.0-25.9, 25.0-25.9, 8-17 it y of adult adult 00:00: [address] Liveborn Liveborn Disease Active Unive rs infant, of infant, of 1-28 it y of [place] 00:00: [place] , , 00 Me dical born in born in [facility] hospital by by delivery delivery Obesity Obesity Disease Active 2019-10 Univers (BMI (BMI 1-25 ity of 30-39.9) 30-39.9) 00:00: [address] Previous Previous Disease Active Unive rs 9-30 ity of section section 00:00: [address] Allergies, Adverse Reactions, Alerts Allergy Allergy Status Severity Reaction(s) Onset Inactive Treating Comm ents Source Name Type Date Date Clinician No Known DA Active U 2019-10 [facility] Drug 2-05 Allergie 00:00: s 00 NO KNOWN Drug Active Univers ALLERGIE Class ity of S [facility] Social History Social Habit Start Date Stop Date Quantity Comments Source ASSERTION 2023-05-08 [facility] 00:00:00 [facility] Gender identity Universit y of [facility] Sexual orientation Univer sity [facility] Alcohol intake 2023-07-06 2023-07-06 Ex-drinker [facility] 00:00:00 00:00:00 (finding) [facility] Exposure to 2023-01-27 2023-02-06 Not sure [facility] SARS-CoV-2 (event) 00:00:00 16:37:00 [facility] Tobacco use and 2022-05-19 2022-05-19 Smokeless Universit y of exposure 00:00:00 00:00:00 tobacco non-user [facility] History of Social 2022-05-15 2022-05-15 [facility] ity of function 00:00:00 00:00:00 [facility] Sex Assigned At [birth year] Universit y of 00:00:00 00:00:00 [facility] Smoking Status Start Date Stop Date Source Never smoked tobacco [facility] Medications Ordered Filled Start Stop Current Ordering Indication Dosage Frequency Signature Comments Components Source Medication Medication Date Date Medication? Clinician (SIG) Name Name jett 2022-0 202- Yes [id number] 1000mg Take 2 Univers n 500 mg 06-12-13 tablets by ity of tablet 00:00: 04:59 [place] :[place] now for 1 Medical dose. Branch polymyxin B Yes [id number] 1[drp] Place 1 Univers sulf-trimet 6-21 Drop in ity o f hoprim 00:00: both eyes [place] 10,000 00 every 4 Medical unit- 1 (four) Branch mg/mL hours. ophthalmic drops polymyxin B 2022- Yes [id number] 1[drp] Place 1 Univers sulf-trimet 6-21 Drop in ity o f hoprim 00:00: both eyes [place] 10,000 00 every 4 Medical unit- 1 (four) Branch mg/mL hours. ophthalmic drops polymyxin B 2022- Yes [id number] 1[drp] Place 1 Univers sulf-trimet 6-21 Drop in ity o f hoprim 00:00: both eyes [place] 10,000 00 every 4 Medical unit- 1 (four) Branch mg/mL hours. ophthalmic drops polymyxin B 2022- Yes [id number] 1[drp] Place 1 Univers sulf-trimet 6-21 Drop in ity o f hoprim 00:00: both eyes [place] 10,000 00 every 4 Medical unit- 1 (four) Branch mg/mL hours. ophthalmic drops polymyxin B 2022- Yes [id number] 1[drp] Place 1 Univers sulf-trimet 6-21 Drop in ity o f hoprim 00:00: both eyes [place] 10,000 00 every 4 Medical unit- 1 (four) Branch mg/mL hours. ophthalmic drops polymyxin B 2022-0 Yes [id number] 1[drp] Place 1 Univers sulf-trimet 6-21 Drop in ity o f hoprim 00:00: both eyes [place] 10,000 00 every 4 Medical unit- 1 (four) Branch mg/mL hours. ophthalmic drops polymyxin B 2022-0 Yes [id number] 1[drp] Place 1 Univers sulf-trimet 6-21 Drop in ity o f hoprim 00:00: both eyes [place] 10,000 00 every 4 Medical unit- 1 (four) Branch mg/mL hours. ophthalmic drops polymyxin B 2023-0 Yes [id number] 1[drp] Place 1 Univers sulf-trimet 6-21 Drop in ity o f hoprim 00:00: both eyes [place] 10,000 00 every 4 Medical unit- 1 (four) Branch mg/mL hours. ophthalmic drops polymyxin B 2023-0 Yes [id number] 1[drp] Place 1 Univers sulf-trimet 6-21 Drop in ity o f hoprim 00:00: both eyes [place] 10,000 00 every 4 Medical unit- 1 (four) Branch mg/mL hours. ophthalmic drops polymyxin B 2023-0 Yes [id number] 1[drp] Place 1 Univers sulf-trimet 6-21 Drop in ity o f hoprim 00:00: both eyes [place] 10,000 00 every 4 Medical unit- 1 (four) Branch mg/mL hours. ophthalmic drops polymyxin B 2023-0 Yes [id number] 1[drp] Place 1 Univers sulf-trimet 6-21 Drop in ity o f hoprim 00:00: both eyes [place] 10,000 00 every 4 Medical unit- 1 (four) Branch mg/mL hours. ophthalmic drops polymyxin B 2023-0 Yes [id number] 1[drp] Place 1 Univers sulf-trimet 6-21 Drop in ity o f hoprim 00:00: both eyes [place] 10,000 00 every 4 Medical unit- 1 (four) Branch mg/mL hours. ophthalmic drops polymyxin B 2023-0 2023- No [id number] 1[drp] Place 1 Univers sulf-trimet 6-21 09-08 Drop in ity of hoprim 00:00: 00:00 both eyes [place] 10,000 00 :00 every 4 Medical unit- 1 (four) Branch mg/mL hours. ophthalmic drops cephALEXin 2023-0 2023- No [id number] 500mg Take 1 Univers (KEFLEX) 02-06 05-20 [id number] capsule by it y of 500 mg 00:00: 04:59 mouth 4 [place] capsule 00 :00 (four) Medical times Branch daily for 10 days. clindamycin 2021- No [id number] 150mg Take 1 Univers 150 mg 8-15 08-21 capsule by ity of capsule 00:00: 04:59 mouth 4 [place] 00 :00 (four) Medical times Branch daily for 5 days. clindamycin 2021- No [id number] 150mg Take 1 Univers 150 mg 8-15 08-21 capsule by ity of capsule 00:00: 04:59 mouth 4 [place] 00 :00 (four) Medical times Branch daily for 5 days. Yes [id number] 1{tbl} Take 1 Univers vitamin 5-03 tablet by ity of w/FA tablet 00:00: mouth [place] 00 daily. Medical Branch ferrous Yes [id number] 325mg Take 1 Un sowmya sulfate 325 5-03 tablet by ity of mg (65 mg 00:00: mouth 2 [place] iron) 00 (two) Medical tablet times Branch daily. Yes [id number] 1{tbl} Take 1 Univers vitamin 5-03 tablet by ity of w/FA tablet 00:00: mouth [place] 00 daily. Medical Branch ferrous Yes [id number] 325mg Take 1 Un sowmya sulfate 325 5-03 tablet by ity of mg (65 mg 00:00: mouth 2 [place] iron) 00 (two) Medical tablet times Branch daily. Yes [id number] 1{tbl} Take 1 Univers vitamin 5-03 tablet by ity of w/FA tablet 00:00: mouth [place] 00 daily. Medical Branch ferrous Yes [id number] 325mg Take 1 Un sowmya sulfate 325 5-03 tablet by ity of mg (65 mg 00:00: mouth 2 [place] iron) 00 (two) Medical tablet times Branch daily. 2021-0 Yes [id number] 1{tbl} Take 1 Univers vitamin 5-03 tablet by ity of w/FA tablet 00:00: mouth [place] 00 daily. Medical Branch ferrous Yes [id number] 325mg Take 1 Un sowmya sulfate 325 5-03 tablet by ity of mg (65 mg 00:00: mouth 2 [place] iron) 00 (two) Medical tablet times Branch daily. 2021-0 Yes [id number] 1{tbl} Take 1 Univers vitamin 5-03 tablet by ity of w/FA tablet 00:00: mouth [place] 00 daily. Medical Branch ferrous Yes [id number] 325mg Take 1 Un sowmya sulfate 325 5-03 tablet by ity of mg (65 mg 00:00: mouth 2 [place] iron) 00 (two) Medical tablet times Branch daily. 2021-0 Yes [id number] 1{tbl} Take 1 Univers vitamin 5-03 tablet by ity of w/FA tablet 00:00: mouth [place] 00 daily. Medical Branch ferrous Yes [id number] 325mg Take 1 Un sowmya sulfate 325 5-03 tablet by ity of mg (65 mg 00:00: mouth 2 [place] iron) 00 (two) Medical tablet times Branch daily. Yes [id number] 1{tbl} Take 1 Univers vitamin 5-03 tablet by ity of w/FA tablet 00:00: mouth [place] 00 daily. Medical Branch ferrous Yes [id number] 325mg Take 1 Un sowmya sulfate 325 5-03 tablet by ity of mg (65 mg 00:00: mouth 2 [place] iron) 00 (two) Medical tablet times Branch daily. 2021-0 Yes [id number] 1{tbl} Take 1 Univers vitamin 5-03 tablet by ity of w/FA tablet 00:00: mouth [place] 00 daily. Medical Branch ferrous 2021- Yes [id number] 325mg Take 1 Un sowmya sulfate 325 5-03 tablet by ity of mg (65 mg 00:00: mouth 2 [place] iron) 00 (two) Medical tablet times Branch daily. 0 Yes [id number] 1{tbl} Take 1 Univers vitamin 5-03 tablet by ity of w/FA tablet 00:00: mouth [place] 00 daily. Medical Branch ferrous 0 Yes [id number] 325mg Take 1 Un sowmya sulfate 325 5-03 tablet by ity of mg (65 mg 00:00: mouth 2 [place] iron) 00 (two) Medical tablet times Branch daily. Yes [id number] 1{tbl} Take 1 Univers vitamin 5-03 tablet by ity of w/FA tablet 00:00: mouth [place] 00 daily. Medical Branch ferrous Yes [id number] 325mg Take 1 Un sowmya sulfate 325 5-03 tablet by ity of mg (65 mg 00:00: mouth 2 [place] iron) 00 (two) Medical tablet times Branch daily. Yes [id number] 1{tbl} Take 1 Univers vitamin 5-03 tablet by ity of w/FA tablet 00:00: mouth [place] 00 daily. Medical Branch ferrous Yes [id number] 325mg Take 1 Un sowmya sulfate 325 5-03 tablet by ity of mg (65 mg 00:00: mouth 2 [place] iron) 00 (two) Medical tablet times Branch daily. Yes [id number] 1{tbl} Take 1 Univers vitamin 5-03 tablet by ity of w/FA tablet 00:00: mouth [place] 00 daily. Medical Branch ferrous Yes [id number] 325mg Take 1 Un sowmya sulfate 325 5-03 tablet by ity of mg (65 mg 00:00: mouth 2 [place] iron) 00 (two) Medical tablet times Branch daily. Yes [id number] 1{tbl} Take 1 Univers vitamin 5-03 tablet by ity of w/FA tablet 00:00: mouth [place] 00 daily. Medical Branch ferrous Yes [id number] 325mg Take 1 Un sowmya sulfate 325 5-03 tablet by ity of mg (65 mg 00:00: mouth 2 [place] iron) 00 (two) Medical tablet times Branch daily. Yes [id number] 1{tbl} Take 1 Univers vitamin 5-03 tablet by ity of w/FA tablet 00:00: mouth [place] 00 daily. Medical Branch ferrous Yes [id number] 325mg Take 1 Un sowmya sulfate 325 5-03 tablet by ity of mg (65 mg 00:00: mouth 2 [place] iron) 00 (two) Medical tablet times Branch daily. Yes [id number] 1{tbl} Take 1 Univers vitamin 5-03 tablet by ity of w/FA tablet 00:00: mouth [place] 00 daily. Medical Branch ferrous Yes [id number] 325mg Take 1 Un sowmya sulfate 325 5-03 tablet by ity of mg (65 mg 00:00: mouth 2 [place] iron) 00 (two) Medical tablet times Branch daily. 2021- Yes [id number] 1{tbl} Take 1 Univers vitamin 5-03 tablet by ity of w/FA tablet 00:00: mouth [place] 00 daily. Medical Branch ferrous Yes [id number] 325mg Take 1 Un sowmya sulfate 325 5-03 tablet by ity of mg (65 mg 00:00: mouth 2 [place] iron) 00 (two) Medical tablet times Branch daily. Yes [id number] 1{tbl} Take 1 Univers vitamin 5-03 tablet by ity of w/FA tablet 00:00: mouth [place] 00 daily. Medical Branch ferrous Yes [id number] 325mg Take 1 Un sowmya sulfate 325 5-03 tablet by ity of mg (65 mg 00:00: mouth 2 [place] iron) 00 (two) Medical tablet times Branch daily. Yes [id number] 1{tbl} Take 1 Univers vitamin 5-03 tablet by ity of w/FA tablet 00:00: mouth [place] 00 daily. Medical Branch ferrous Yes [id number] 325mg Take 1 Un sowmya sulfate 325 5-03 tablet by ity of mg (65 mg 00:00: mouth 2 [place] iron) 00 (two) Medical tablet times Branch daily. Yes [id number] 1{tbl} Take 1 Univers vitamin 5-03 tablet by ity of w/FA tablet 00:00: mouth [place] 00 daily. Medical Branch ferrous Yes [id number] 325mg Take 1 Un sowmya sulfate 325 5-03 tablet by ity of mg (65 mg 00:00: mouth 2 [place] iron) 00 (two) Medical tablet times Branch daily. 2021-0 2022- No [id number] 1{tbl} Take 1 Univers vitamin 5-03 09-08 tablet by ity of w/FA tablet 00:00: 00:00 [place] 00 :00 daily. Medical Branch ferrous 2021-0 2022- No [id number] 325mg Take 1 U nivers sulfate 325 5-03 09-08 tablet by it y of mg (65 mg 00:00: 00:00 mouth 2 [place] iron) 00 :00 (two) Medical tablet times Branch daily. Nitrofurant 2020-10- No [id number] 100mg Take 1 Univers oin&Nit. 2-10-14 capsule by ity of Macrocryst 00:00: 00:00 mouth 2 [place] (MACROBID) 00 :00 (two) Medical 100 mg times Branch capsule daily. VITAFOL 2021- No 1{capsu Take 1 Univ ers ULTRA 29 mg 06-28 le} capsule by i ty of iron- 1 00:00: 00:00 mouth [place] mg-200 mg 00 :00 daily. Medical Cap Branch 2020- No Take by Unive rs vit 10-29 mouth. ity of calc,iron,f 07:47: 00:00 [place] olic 18 :00 Medical ( Branch VITAMIN ORAL) ferrous 2020- No Take by Univer s sulfate 10-29 mouth. ity of (IRON ORAL) 07:47: 00:00 [place] 18 :00 Medical Branch 2020- No Take by Unive rs vit 10-29 mouth. ity of calc,iron,f 07:47: 00:00 [place] olic 18 :00 Medical ( Branch VITAMIN ORAL) ferrous 2020- No Take by Univer s sulfate 10-29 mouth. ity of (IRON ORAL) 07:47: 00:00 [place] 18 :00 Medical Branch 2020- No Take by Unive rs vit 10-29 mouth. ity of calc,iron,f 07:47: 00:00 [place] olic 18 :00 Medical ( Branch VITAMIN ORAL) ferrous 2020- No Take by Univer s sulfate 10-29 mouth. ity of (IRON ORAL) 07:47: 00:00 [place] 18 :00 Medical Branch 2020- No Take by Unive rs vit 10-29 mouth. ity of calc,iron,f 07:47: 00:00 [place] olic 18 :00 Medical ( Branch VITAMIN ORAL) ferrous 2020- No Take by Univer s sulfate 10-29 mouth. ity of (IRON ORAL) 07:47: 00:00 [place] 18 :00 Medical Branch ferrous 2021- No [id number] 325mg Take 1 U nivers sulfate 325 10-29 tablet by it y of mg (65 mg 00:00: 00:00 mouth 2 [place] iron[place] 00 :00 (two) Medical tablet times Branch daily. 2021- No [id number] 1{tbl} Take 1 Univers vitamin 10-29 tablet by ity of w/FA tablet 00:00: 00:00 [place] 00 :00 daily. Medical Branch hydrOXYzine 2020- No [id number] 25mg Take 1 Univers 25 mg 10-14 tablet by ity of tablet 00:00: 00:00 mouth [place] 00 :00 every 6 Medical (six) Branch hours as needed for Itching. metroNIDAZO No TAKE 1 Uni vers LE 500 mg 10-03 TABLET BY ity of tablet 00:00: 00:00 MOUTH 1 [place] 00 :00 TIME NOW Medical FOR 1 DOSE Branch metroNIDAZO 2020- No TAKE 1 Uni vers LE 500 mg 10-03 TABLET BY ity of tablet 00:00: 00:00 MOUTH 1 [place] 00 :00 TIME NOW Medical FOR 1 DOSE Branch Immunizations Ordered Immunization Filled Date Status Comments Sour ce Name Immunization Name [facility] 2021-11-30 Completed University of 00:00:00 [facility] TDAP 2021-11-30 Completed University of 00:00:00 [facility] TDAP 2021-11-30 Completed University of 00:00:00 [facility] TDAP 2021-11-30 Completed University of 00:00:00 [facility] TDAP 2021-11-30 Completed University of 00:00:00 [facility] TDAP 2021-11-30 Completed University of 00:00:00 [facility] TDAP 2021-11-30 Completed University of 00:00:00 [facility] TDAP 2021-11-30 Completed University of 00:00:00 [facility] TDAP 2021-11-30 Completed University of 00:00:00 [facility] TDAP 2021-11-30 Completed University of 00:00:00 [facility] TDAP 2021-11-30 Completed [facility] University of 00:00:00 [place] [facility] TDAP 2021-11-30 Completed University of 00:00:00 [place] [facility] TDAP 2021-11-30 Completed University of 00:00:00 [place] [facility] TDAP 2021-11-30 Completed University of 00:00:00 [place] [facility] TDAP 2021-11-30 Completed University of 00:00:00 [place] [facility] TDAP 2021-11-30 Completed University of 00:00:00 [place] [facility] TDAP 2021-11-30 Completed University of 00:00:00 [place] [facility] TDAP 2021-11-30 Completed University of 00:00:00 [place] [facility] TDAP 2021-11-30 Completed University of 00:00:00 [place] [facility] TDAP 2021-11-30 Completed University of 00:00:00 [place] [facility] TDAP 2021-11-30 Completed University of 00:00:00 [place] [facility] TDAP 2021-11-30 Completed University of 00:00:00 [place] [facility] [place] TDAP 2021-11-30 Completed University of 00:00:00 [facility] Influenza Virus 2021-08-19 Completed Universit y of Vaccine Quad .5 mL 00:00:00 [place] Medical IM 6+ MO Branch Influenza Virus 2021-08-19 Completed Universit y of Vaccine Quad .5 mL 00:00:00 [place] Medical IM 6+ MO Branch Influenza Virus 2021-08-19 Completed Universit y of Vaccine Quad .5 mL 00:00:00 [place] Medical IM 6+ MO Branch Influenza Virus 2021-08-19 Completed Universit y of Vaccine Quad .5 mL 00:00:00 [place] Medical IM 6+ MO Branch Influenza Virus 2021-08-19 Completed Universit y of Vaccine Quad .5 mL 00:00:00 [place] Medical IM 6+ MO Branch Influenza Virus 2021-08-19 Completed Universit y of Vaccine Quad .5 mL 00:00:00 [place] Medical IM 6+ MO Branch Influenza Virus 2021-08-19 Completed Universit y of Vaccine Quad .5 mL 00:00:00 [place] Medical IM 6+ MO Branch Influenza Virus 2021-08-19 Completed Universit y of Vaccine Quad .5 mL 00:00:00 [place] Medical IM 6+ MO Branch Influenza Virus 2021-08-19 Completed Universit y of Vaccine Quad .5 mL 00:00:00 [place] Medical IM 6+ MO Branch Influenza Virus 2021-08-19 Completed Universit y of Vaccine Quad .5 mL 00:00:00 [place] Medical IM 6+ MO Branch Influenza Virus 2021-08-19 Completed Universit y of Vaccine Quad .5 mL 00:00:00 [place] Medical IM 6+ MO Branch Influenza Virus 2021-08-19 Completed Universit y of Vaccine Quad .5 mL 00:00:00 [place] [facility] IM 6+ MO Branch Influenza Virus 2021-08-19 Completed Universit y of Vaccine Quad .5 mL 00:00:00 [place] Medical IM 6+ MO Branch Influenza Virus 2021-08-19 Completed Universit y of Vaccine Quad .5 mL 00:00:00 [place] [facility] IM 6+ MO Branch Influenza Virus 2021-08-19 Completed Universit y of Vaccine Quad .5 mL 00:00:00 [place] [facility] IM 6+ MO Branch Influenza Virus 2021-08-19 Completed Universit y of Vaccine Quad .5 mL 00:00:00 [place] [facility] IM 6+ MO Branch Influenza Virus 2021-08-19 Completed Universit y of Vaccine Quad .5 mL 00:00:00 [place] [facility] IM 6+ MO Branch Influenza Virus 2021-08-19 Completed Universit y of Vaccine Quad .5 mL 00:00:00 [place] [facility] IM 6+ MO Branch Influenza Virus 2021-08-19 Completed Universit y of Vaccine Quad .5 mL 00:00:00 [place] [facility] IM 6+ MO Branch Influenza Virus 2021-08-19 Completed Universit y of Vaccine Quad .5 mL 00:00:00 [place] [facility] IM 6+ MO Branch (FLUZONE/FLULAVAL/FL UARIX) Influenza Virus 2021-08-19 Completed Universit y of Vaccine [place] .5 mL 00:00:00 [place] [facility] IM 6+ MO Branch (FLUZONE/FLULAVAL/FL UARIX) Influenza Virus 2021-08-19 Completed Universit y of Vaccine Quad .5 mL 00:00:00 [place] [facility] IM 6+ MO Branch (FLUZONE/FLULAVAL/FL UARIX) Influenza Virus 2021-08-19 Completed Universit y of Vaccine Quad .5 mL 00:00:00 [place] [facility] IM 6+ MO Branch (FLUZONE/FLULAVAL/FL UARIX) Influenza Virus 2021-08-19 Completed Universit y of Vaccine Quad .5 mL 00:00:00 [facility] IM 6+ MO Branch (FLUZONE/FLULAVAL/FL UARIX) TDAP 2020-08-25 Completed University of 00:00:00 [facility] TDAP 2020-08-25 Completed University of 00:00:00 [facility] TDAP 2020-08-25 Completed University of 00:00:00 [facility] TDAP 2020-08-25 Completed University of 00:00:00 [facility] TDAP 2020-08-25 Completed University of 00:00:00 [facility] TDAP 2020-08-25 Completed University of 00:00:00 [facility] TDAP 2020-08-25 Completed University of 00:00:00 [facility] TDAP 2020-08-25 Completed University of 00:00:00 [facility] TDAP 2020-08-25 Completed University of 00:00:00 [facility] TDAP 2020-08-25 Completed University of 00:00:00 [facility] TDAP 2020-08-25 Completed University of 00:00:00 [facility] TDAP 2020-08-25 Completed University of 00:00:00 [facility] TDAP 2020-08-25 Completed University of 00:00:00 [facility] TDAP 2020-08-25 Completed University of 00:00:00 [facility] TDAP 2020-08-25 Completed University of 00:00:00 [facility] TDAP 2020-08-25 Completed University of 00:00:00 [facility] TDAP 2020-08-25 Completed University of 00:00:00 [facility] TDAP 2020-08-25 Completed University of 00:00:00 [facility] TDAP 2020-08-25 Completed University of 00:00:00 [facility] TDAP 2020-08-25 Completed University of 00:00:00 [facility] TDAP 2020-08-25 Completed University of 00:00:00 [facility] TDAP 2020-08-25 Completed University of 00:00:00 [facility] TDAP 2020-08-25 Completed University of 00:00:00 [facility] TDAP 2020-08-25 Completed University of 00:00:00 [facility] Influenza Virus 2020-06-30 Completed Universit y of Vaccine Quad .5 mL 00:00:00 [place] [facility] IM 6+ MO Branch Influenza Virus 2020-06-30 Completed Universit y of Vaccine Quad .5 mL 00:00:00 [place] [facility] IM 6+ MO Branch Influenza Virus 2020-06-30 Completed Universit y of Vaccine Quad .5 mL 00:00:00 [place] [facility] IM 6+ MO Branch Influenza Virus 2020-06-30 Completed Universit y of Vaccine Quad .5 mL 00:00:00 [place] [facility] IM 6+ MO Branch Influenza Virus 2020-06-30 Completed Universit y of Vaccine Quad .5 mL 00:00:00 [place] [facility] IM 6+ MO Branch Influenza Virus 2020-06-30 Completed Universit y of Vaccine Quad .5 mL 00:00:00 [place] [facility] IM 6+ MO Branch Influenza Virus 2020-06-30 Completed Universit y of Vaccine Quad .5 mL 00:00:00 [place] [facility] IM 6+ MO Branch Influenza Virus 2020-06-30 Completed Universit y of Vaccine Quad .5 mL 00:00:00 [place] [facility] IM 6+ MO Branch Influenza Virus 2020-06-30 Completed [facility] .5 mL 00:00:00 [facility] Influenza Virus 2020-06-30 Completed [facility] .5 mL 00:00:00 [facility] Influenza Virus 2020-06-30 Completed [facility] .5 mL 00:00:00 [facility] Influenza Virus 2020-06-30 Completed [facility] .5 mL 00:00:00 [facility] Influenza Virus 2020-06-30 Completed [facility] .5 mL 00:00:00 [facility] Influenza Virus 2020-06-30 Completed [facility] .5 mL 00:00:00 [facility] Influenza Virus 2020-06-30 Completed [facility] .5 mL 00:00:00 [facility] Influenza Virus 2020-06-30 Completed [facility] .5 mL 00:00:00 [facility] Influenza Virus 2020-06-30 Completed [facility] .5 mL 00:00:00 [facility] Influenza Virus 2020-06-30 Completed [facility] .5 mL 00:00:00 [facility] Influenza Virus 2020-06-30 Completed [facility] .5 mL 00:00:00 [facility] Influenza Virus 2020-06-30 Completed [facility] .5 mL 00:00:00 [facility] (FLUZONE/FLULAVAL/FL UARIX) Influenza Virus 2020-06-30 Completed [facility] .5 mL 00:00:00 [facility] (FLUZONE/FLULAVAL/FL UARIX) Influenza Virus 2020-06-30 Completed [facility] .5 mL 00:00:00 [facility] (FLUZONE/FLULAVAL/FL UARIX) Influenza Virus 2020-06-30 Completed [facility] .5 mL 00:00:00 [facility] (FLUZONE/FLULAVAL/FL UARIX) Influenza Virus 2020-06-30 Completed [facility] .5 mL 00:00:00 [facility] (FLUZONE/FLULAVAL/FL UARIX) HPV 2012-02-08 Completed [facility] 00:00:00 [facility] HPV 2011-10-31 Completed [facility] 00:00:00 [facility] HPV 2011-10-31 Completed [facility] 00:00:00 [facility] HPV 2011-10-31 Completed [facility] 00:00:00 [facility] HPV 2011-07-13 Completed [facility] 00:00:00 [facility] HPV 2011-07-13 Completed [facility] 00:00:00 [facility] HPV 2011-07-13 Completed [facility] 00:00:00 [facility] HPV 2011-07-13 Completed [facility] 00:00:00 [facility] HPV 2011-07-13 Completed [facility] 00:00:00 [facility] HPV 2011-07-13 Completed [facility] 00:00:00 [facility] HPV 2011-07-13 Completed [facility] 00:00:00 [facility] HPV 2011-07-13 Completed [facility] 00:00:00 [facility] HPV 2011-07-13 Completed [facility] 00:00:00 [facility] HPV 2011-07-13 Completed [facility] 00:00:00 [facility] HPV 2011-07-13 Completed [facility] 00:00:00 [facility] HPV 2011-07-13 Completed [facility] 00:00:00 [facility] HPV 2011-07-13 Completed [facility] 00:00:00 [facility] HPV 2011-07-13 Completed [facility] 00:00:00 [facility] HPV 2011-07-13 Completed [facility] 00:00:00 [facility] HPV 2011-07-13 Completed [facility] 00:00:00 [facility] HPV 2011-07-13 Completed [facility] 00:00:00 [facility] HPV 2011-07-13 Completed [facility] 00:00:00 [facility] HPV 2011-07-13 Completed [facility] 00:00:00 [facility] HPV 2011-07-13 Completed [facility] 00:00:00 [facility] HPV 2011-07-13 Completed [facility] 00:00:00 [facility] HPV 2011-07-13 Completed [facility] 00:00:00 [facility] HPV 2011-07-13 Completed [facility] 00:00:00 [facility] HPV 2011-07-13 Completed [facility] 00:00:00 [facility] Meningococcal 2010-12-28 Completed [facility] Polysaccharide 00:00:[address] [facility] raymond (groups A, C, Y and Branc h W-135) conjugate vaccine (MCV4P) TDAP 2010-12-28 Completed [facility] 00:00:00 [facility] Varicella 2010-12-28 Completed [facility] (varivax)(chicken 00:00:00 [facility] pox) [facility] Meningococcal 2010-12-28 Completed [facility] Polysaccharide 00:00:00 [facility] (groups A, C, Y and Branc h W-135) conjugate vaccine (MCV4P) TDAP 2010-12-28 Completed [facility] 00:00:00 [facility] Varicella 2010-12-28 Completed [facility] (varivax)(chicken 00:00:00 [facility] pox) [facility] Meningococcal 2010-12-28 Completed [facility] Polysaccharide 00:00:00 [facility] (groups A, C, Y and Branc h W-135) conjugate vaccine (MCV4P) TDAP 2010-12-28 Completed [facility] 00:00:00 [facility] Varicella 2010-12-28 Completed [facility] (varivax)(chicken 00:00:00 [facility] pox) [facility] Meningococcal 2010-12-28 Completed [facility] Polysaccharide 00:00:00 [facility] (groups A, C, Y and Branc h W-135) conjugate vaccine (MCV4P) TDAP 2010-12-28 Completed [facility] 00:00:00 [facility] Varicella 2010-12-28 Completed [facility] (varivax)(chicken 00:00:00 [facility] pox) [facility] Meningococcal 2010-12-28 Completed [facility] Polysaccharide 00:00:00 [facility] (groups A, C, Y and Branc h W-135) conjugate vaccine (MCV4P) TDAP 2010-12-28 Completed [facility] 00:00:00 [facility] Varicella 2010-12-28 Completed [facility] (varivax)(chicken 00:00:00 [facility] pox) [facility] Meningococcal 2010-12-28 Completed [facility] Polysaccharide 00:00:00 [facility] (groups A, C, Y and Branc h W-135) conjugate vaccine (MCV4P) TDAP 2010-12-28 Completed [facility] 00:00:00 [facility] Varicella 2010-12-28 Completed [facility] (varivax)(chicken 00:00:00 [facility] pox) [facility] Meningococcal 2010-12-28 Completed [facility] Polysaccharide 00:00:00 [facility] (groups A, C, Y and Branc h W-135) conjugate vaccine (MCV4P) TDAP 2010-12-28 Completed [facility] 00:00:00 [facility] Varicella 2010-12-28 Completed [facility] (varivax)(chicken 00:00:00 [facility] pox) [facility] Meningococcal 2010-12-28 Completed [facility] Polysaccharide 00:00:00 [facility] (groups A, C, Y and Branc h W-135) conjugate vaccine (MCV4P) TDAP 2010-12-28 Completed [facility] 00:00:00 [facility] Varicella 2010-12-28 Completed [facility] (varivax)(chicken 00:00:00 [facility] pox) [facility] Meningococcal 2010-12-28 Completed [facility] Polysaccharide 00:00:00 [facility] (groups A, C, Y and Branc h W-135) conjugate vaccine (MCV4P) TDAP 2010-12-28 Completed [facility] 00:00:00 [facility] Varicella 2010-12-28 Completed [facility] (varivax)(chicken 00:00:00 [facility] pox) [facility] Meningococcal 2010-12-28 Completed [facility] Polysaccharide 00:00:00 [place] [facility] (groups A, C, Y and Branc h W-135) conjugate vaccine (MCV4P) TDAP 2010-12-28 Completed [facility] 00:00:00 [facility] Varicella 2010-12-28 Completed [facility] (varivax)(chicken 00:00:00 [facility] pox) [facility] Meningococcal 2010-12-28 Completed [facility] Polysaccharide 00:00:00 [place] [facility] (groups A, C, Y and Branc h W-135) conjugate vaccine (MCV4P) TDAP 2010-12-28 Completed [facility] 00:00:00 [facility] Varicella 2010-12-28 Completed [facility] (varivax)(chicken 00:00:00 [facility] pox) [facility] Meningococcal 2010-12-28 Completed [facility] Polysaccharide 00:00:00 [facility] (groups A, C, Y and Branc h W-135) conjugate vaccine (MCV4P) TDAP 2010-12-28 Completed [facility] 00:00:00 [facility] Varicella 2010-12-28 Completed [facility] (varivax)(chicken 00:00:00 [facility] pox) [facility] Meningococcal 2010-12-28 Completed [facility] Polysaccharide 00:00:00 [facility] (groups A, C, Y and Branc h W-135) conjugate vaccine (MCV4P) TDAP 2010-12-28 Completed [facility] 00:00:00 [facility] Varicella 2010-12-28 Completed [facility] (varivax)(chicken 00:00:00 [facility] pox) [facility] Meningococcal 2010-12-28 Completed [facility] Polysaccharide 00:00:00 [facility] (groups A, C, Y and Branc h W-135) conjugate vaccine (MCV4P) TDAP 2010-12-28 Completed [facility] 00:00:00 [facility] Varicella 2010-12-28 Completed [facility] (varivax)(chicken 00:00:00 [facility] pox) [facility] Meningococcal 2010-12-28 Completed [facility] Polysaccharide 00:00:00 [facility] (groups A, C, Y and Branc h W-135) conjugate vaccine (MCV4P) TDAP 2010-12-28 Completed [facility] 00:00:00 [facility] Varicella 2010-12-28 Completed [facility] (varivax)(chicken 00:00:00 [facility] pox) [facility] Meningococcal 2010-12-28 Completed [facility] Polysaccharide 00:00:00 [facility] (groups A, C, Y and Branc h W-135) conjugate vaccine (MCV4P) TDAP 2010-12-28 Completed [facility] 00:00:00 [facility] Varicella 2010-12-28 Completed [facility] (varivax)(chicken 00:00:00 [facility] pox) [facility] Meningococcal 2010-12-28 Completed [facility] Polysaccharide 00:00:00 [facility] (groups A, C, Y and Branc h W-135) conjugate vaccine (MCV4P) TDAP 2010-12-28 Completed [facility] 00:00:00 [facility] Varicella 2010-12-28 Completed [facility] (varivax)(chicken 00:00:00 [facility] pox) [facility] Meningococcal 2010-12-28 Completed [facility] Polysaccharide 00:00:00 [place] [facility] (groups A, C, Y and Branc h W-135) conjugate vaccine (MCV4P) TDAP 2010-12-28 Completed [facility] 00:00:00 [facility] Varicella 2010-12-28 Completed [facility] (varivax)(chicken 00:00:00 [facility] pox) [facility] Meningococcal 2010-12-28 Completed [facility] Polysaccharide 00:00:00 [facility] (groups A, C, Y and Branc h W-135) conjugate vaccine (MCV4P) TDAP 2010-12-28 Completed [facility] 00:00:00 [facility] Varicella 2010-12-28 Completed [facility] (varivax)(chicken 00:00:00 [facility] pox) [facility] Meningococcal 2010-12-28 Completed [facility] Polysaccharide 00:00:00 [facility] (groups A, C, Y and Branc h W-135) conjugate vaccine (MCV4P) TDAP 2010-12-28 Completed [facility] 00:00:00 [facility] Varicella 2010-12-28 Completed [facility] (varivax)(chicken 00:00:00 [place] [facility] pox) [facility] Meningococcal 2010-12-28 Completed [facility] Polysaccharide 00:00:00 [place] [facility] (groups A, C, Y and Branc h W-135) conjugate vaccine (MCV4P) TDAP 2010-12-28 Completed [facility] 00:00:00 [facility] Varicella 2010-12-28 Completed [facility] (varivax)(chicken 00:00:00 [place] [facility] pox) [facility] Meningococcal 2010-12-28 Completed [facility] Polysaccharide 00:00:00 [place] [facility] (groups A, C, Y and Branc h W-135) conjugate vaccine (MCV4P) TDAP 2010-12-28 Completed [facility] 00:00:00 [facility] Varicella 2010-12-28 Completed [facility] (varivax)(chicken 00:00:00 [facility] pox) [facility] Meningococcal 2010-12-28 Completed [facility] Polysaccharide 00:00:00 [facility] (groups A, C, Y and Branc h W-135) conjugate vaccine (MCV4P) TDAP 2010-12-28 Completed [facility] 00:00:00 [facility] Varicella 2010-12-28 Completed [facility] (varivax)(chicken 00:00:00 [facility] pox) [facility] Meningococcal 2010-12-28 Completed [facility] Polysaccharide 00:00:00 [facility] (groups A, C, Y and Branc h W-135) conjugate vaccine (MCV4P) TDAP 2010-12-28 Completed [facility] 00:00:00 [facility] Varicella 2010-12-28 Completed [facility] (varivax)(chicken 00:00:00 [place] [facility] pox) [facility] DTAP 2002-06-30 Completed [facility] 00:00:00 [facility] MMR 2002-06-30 Completed [facility] 00:00:00 [facility] Polio (IPV/OPV) 2002-06-30 Completed [facility] 00:00:00 [facility] DTAP 2002-06-30 Completed [facility] 00:00:00 [facility] MMR 2002-06-30 Completed [facility] 00:00:00 [facility] Polio (IPV/OPV) 2002-06-30 Completed [facility] 00:00:00 [facility] DTAP 2002-06-30 Completed [facility] 00:00:00 [facility] MMR 2002-06-30 Completed [facility] 00:00:00 [facility] Polio (IPV/OPV) 2002-06-30 Completed [facility] 00:00:00 [facility] DTAP 2002-06-30 Completed [facility] 00:00:00 [facility] MMR 2002-06-30 Completed [facility] 00:00:00 [facility] Polio (IPV/OPV) 2002-06-30 Completed [facility] 00:00:00 [facility] DTAP 2002-06-30 Completed [facility] 00:00:00 [facility] MMR 2002-06-30 Completed [facility] 00:00:00 [facility] Polio (IPV/OPV) 2002-06-30 Completed [facility] 00:00:00 [facility] DTAP 2002-06-30 Completed [facility] 00:00:00 [facility] MMR 2002-06-30 Completed [facility] 00:00:00 [facility] Polio (IPV/OPV) 2002-06-30 Completed [facility] 00:00:00 [facility] DTAP 2002-06-30 Completed [facility] 00:00:00 [facility] MMR 2002-06-30 Completed [facility] 00:00:00 [facility] Polio (IPV/OPV) 2002-06-30 Completed [facility] 00:00:00 [facility] DTAP 2002-06-30 Completed [facility] 00:00:00 [facility] MMR 2002-06-30 Completed [facility] 00:00:00 [facility] Polio (IPV/OPV) 2002-06-30 Completed [facility] 00:00:00 [facility] DTAP 2002-06-30 Completed [facility] 00:00:00 [facility] MMR 2002-06-30 Completed [facility] 00:00:00 [facility] Polio (IPV/OPV) 2002-06-30 Completed [facility] 00:00:00 [facility] DTAP 2002-06-30 Completed [facility] 00:00:00 [facility] MMR 2002-06-30 Completed [facility] 00:00:00 [facility] Polio (IPV/OPV) 2002-06-30 Completed [facility] 00:00:00 [facility] DTAP 2002-06-30 Completed [facility] 00:00:00 [facility] MMR 2002-06-30 Completed [facility] 00:00:00 [facility] Polio (IPV/OPV) 2002-06-30 Completed [facility] 00:00:00 [facility] DTAP 2002-06-30 Completed [facility] 00:00:00 [facility] MMR 2002-06-30 Completed [facility] 00:00:00 [facility] Polio (IPV/OPV) 2002-06-30 Completed [facility] 00:00:00 [facility] DTAP 2002-06-30 Completed [facility] 00:00:00 [facility] MMR 2002-06-30 Completed [facility] 00:00:00 [facility] Polio (IPV/OPV) 2002-06-30 Completed [facility] 00:00:00 [facility] DTAP 2002-06-30 Completed [facility] 00:00:00 [facility] MMR 2002-06-30 Completed [facility] 00:00:00 [facility] Polio (IPV/OPV) 2002-06-30 Completed [facility] 00:00:00 [facility] DTAP 2002-06-30 Completed [facility] 00:00:00 [facility] MMR 2002-06-30 Completed [facility] 00:00:00 [facility] Polio (IPV/OPV) 2002-06-30 Completed [facility] 00:00:00 [facility] DTAP 2002-06-30 Completed [facility] 00:00:00 [facility] MMR 2002-06-30 Completed [facility] 00:00:00 [facility] Polio (IPV/OPV) 2002-06-30 Completed [facility] 00:00:00 [facility] DTAP 2002-06-30 Completed [facility] 00:00:00 [facility] MMR 2002-06-30 Completed [facility] 00:00:00 [facility] Polio (IPV/OPV) 2002-06-30 Completed [facility] 00:00:00 [facility] DTAP 2002-06-30 Completed [facility] 00:00:00 [facility] MMR 2002-06-30 Completed [facility] 00:00:00 [facility] Polio (IPV/OPV) 2002-06-30 Completed [facility] 00:00:00 [facility] DTAP 2002-06-30 Completed [facility] 00:00:00 [facility] MMR 2002-06-30 Completed [facility] 00:00:00 [facility] Polio (IPV/OPV) 2002-06-30 Completed [facility] 00:00:00 [facility] DTAP 2002-06-30 Completed [facility] 00:00:00 [facility] MMR 2002-06-30 Completed [facility] 00:00:00 [facility] Polio (IPV/OPV) 2002-06-30 Completed [facility] 00:00:00 [facility] DTAP 2002-06-30 Completed [facility] 00:00:00 [facility] MMR 2002-06-30 Completed [facility] 00:00:00 [facility] Polio (IPV/OPV) 2002-06-30 Completed [facility] 00:00:00 [facility] DTAP 2002-06-30 Completed [facility] 00:00:00 [facility] MMR 2002-06-30 Completed [facility] 00:00:00 [facility] Polio (IPV/OPV) 2002-06-30 Completed [facility] 00:00:00 [facility] DTAP 2002-06-30 Completed [facility] 00:00:00 [facility] MMR 2002-06-30 Completed [facility] 00:00:00 [facility] Polio (IPV/OPV) 2002-06-30 Completed [facility] 00:00:00 [facility] DTAP 2002-06-30 Completed [facility] 00:00:00 [facility] MMR 2002-06-30 Completed [facility] 00:00:00 [facility] Polio (IPV/OPV) 2002-06-30 Completed [facility] 00:00:00 [facility] HEPATITIS A 2001-01-17 Completed [facility] 00:00:00 [facility] Pneumococcal 7 2001-01-17 Completed [facility] Conjugate, PCV7 00:00:00 [place] [facility] (Prevnar7) [facility] HEPATITIS A 2001-01-17 Completed [facility] 00:00:00 [facility] Pneumococcal 7 2001-01-17 Completed [facility] Conjugate, PCV7 00:00:00 [place] [facility] (Prevnar7) [facility] HEPATITIS A 2001-01-17 Completed [facility] 00:00:00 [facility] Pneumococcal 7 2001-01-17 Completed [facility] Conjugate, PCV7 00:00:00 [place] [facility] (Prevnar7) [facility] HEPATITIS A 2001-01-17 Completed [facility] 00:00:00 [facility] Pneumococcal 7 2001-01-17 Completed [facility] Conjugate, PCV7 00:00:00 [place] [facility] (Prevnar7) [facility] HEPATITIS A 2001-01-17 Completed [facility] 00:00:00 [facility] Pneumococcal 7 2001-01-17 Completed [facility] Conjugate, PCV7 00:00:00 [place] [facility] (Prevnar7) [facility] HEPATITIS A 2001-01-17 Completed [facility] 00:00:00 [facility] Pneumococcal 7 2001-01-17 Completed [facility] Conjugate, PCV7 00:00:00 [place] [facility] (Prevnar7) [facility] HEPATITIS A 2001-01-17 Completed [facility] 00:00:00 [facility] Pneumococcal 7 2001-01-17 Completed [facility] Conjugate, PCV7 00:00:00 [place] [facility] (Prevnar7) [facility] HEPATITIS A 2001-01-17 Completed [facility] 00:00:00 [facility] Pneumococcal 7 2001-01-17 Completed [facility] Conjugate, PCV7 00:00:00 [place] [facility] (Prevnar7) [facility] HEPATITIS A 2001-01-17 Completed [facility] 00:00:00 [facility] Pneumococcal 7 2001-01-17 Completed [facility] Conjugate, PCV7 00:00:00 [place] [facility] (Prevnar7) [facility] HEPATITIS A 2001-01-17 Completed [facility] 00:00:00 [facility] Pneumococcal 7 2001-01-17 Completed [facility] Conjugate, PCV7 00:00:00 [place] [facility] (Prevnar7) [facility] HEPATITIS A 2001-01-17 Completed [facility] 00:00:00 [facility] Pneumococcal 7 2001-01-17 Completed [facility] Conjugate, PCV7 00:00:00 [place] [facility] (Prevnar7) [facility] HEPATITIS A 2001-01-17 Completed [facility] 00:00:00 [facility] Pneumococcal 7 2001-01-17 Completed [facility] Conjugate, PCV7 00:00:00 [place] [facility] (Prevnar7) [facility] HEPATITIS A 2001-01-17 Completed [facility] 00:00:00 [facility] Pneumococcal 7 2001-01-17 Completed [facility] Conjugate, PCV7 00:00:00 [place] [facility] (Prevnar7) [facility] HEPATITIS A 2001-01-17 Completed [facility] 00:00:00 [facility] Pneumococcal 7 2001-01-17 Completed [facility] Conjugate, PCV7 00:00:00 [place] [facility] (Prevnar7) [facility] HEPATITIS A 2001-01-17 Completed [facility] 00:00:00 [facility] Pneumococcal 7 2001-01-17 Completed [facility] Conjugate, PCV7 00:00:00 [place] [facility] (Prevnar7) [facility] HEPATITIS A 2001-01-17 Completed [facility] 00:00:00 [facility] Pneumococcal 7 2001-01-17 Completed [facility] Conjugate, PCV7 00:00:00 [place] [facility] (Prevnar7) [facility] HEPATITIS A 2001-01-17 Completed [facility] 00:00:00 [facility] Pneumococcal 7 2001-01-17 Completed [facility] Conjugate, PCV7 00:00:00 [place] [facility] (Prevnar7) [facility] HEPATITIS A 2001-01-17 Completed [facility] 00:00:00 [facility] Pneumococcal 7 2001-01-17 Completed [facility] Conjugate, PCV7 00:00:00 [place] [facility] (Prevnar7) [facility] HEPATITIS A 2001-01-17 Completed [facility] 00:00:00 [facility] Pneumococcal 7 2001-01-17 Completed [facility] Conjugate, PCV7 00:00:00 [place] [facility] (Prevnar7) [facility] HEPATITIS A 2001-01-17 Completed [facility] 00:00:00 [facility] Pneumococcal 7 2001-01-17 Completed [facility] Conjugate, PCV7 00:00:00 [place] [facility] (Prevnar7) [facility] HEPATITIS A 2001-01-17 Completed [facility] 00:00:00 [facility] Pneumococcal 7 2001-01-17 Completed [facility] Conjugate, PCV7 00:00:00 [place] [facility] (Prevnar7) [facility] HEPATITIS A 2001-01-17 Completed [facility] 00:00:00 [facility] Pneumococcal 7 2001-01-17 Completed [facility] Conjugate, PCV7 00:00:00 [place] [facility] (Prevnar7) [facility] HEPATITIS A 2001-01-17 Completed [facility] 00:00:00 [facility] Pneumococcal 7 2001-01-17 Completed [facility] Conjugate, PCV7 00:00:00 [place] [facility] (Prevnar7) [facility] HEPATITIS A 2001-01-17 Completed [facility] 00:00:00 [facility] Pneumococcal 7 2001-01-17 Completed [facility] Conjugate, PCV7 00:00:00 [place] [facility] (Prevnar7) [facility] HIB 4 Dose Schedule 1998-12-09 Completed [facility] 00:00:00 [facility] Polio (IPV/OPV) 1998-12-09 Completed [facility] 00:00:00 [facility] DTAP 1998-12-09 Completed [facility] 00:00:00 [facility] HIB 4 Dose Schedule 1998-12-09 Completed [facility] 00:00:00 [facility] Polio (IPV/OPV) 1998-12-09 Completed [facility] 00:00:00 [facility] DTAP 1998-12-09 Completed [facility] 00:00:00 [facility] HIB 4 Dose Schedule 1998-12-09 Completed [facility] 00:00:00 [facility] Polio (IPV/OPV) 1998-12-09 Completed [facility] 00:00:00 [facility] DTAP 1998-12-09 Completed [facility] 00:00:00 [facility] HIB 4 Dose Schedule 1998-12-09 Completed Unive [facility] of 00:00:00 [facility] Polio (IPV/OPV) 1998-12-09 Completed [facility]00 [facility] DTAP 1998-12-09 Completed [facility] 00:[facility]00 [facility] HIB 4 Dose Schedule 1998-12-09 Completed [facility] 00:00:00 [facility] Polio (IPV/OPV) 1998-12-09 Completed [facility] 00:[facility]:00 [facility] DTAP 1998-12-09 Completed [facility] 00:00:00 [facility] HIB 4 Dose Schedule 1998-12-09 Completed [facility] 00:00:00 [facility] Polio (IPV/OPV) 1998-12-09 Completed [facility] 00:00:00 [facility] DTAP 1998-12-09 Completed [facility] 00:00:00 [facility] HIB 4 Dose Schedule 1998-12-09 Completed [facility] 00:00:00 [facility] Polio (IPV/OPV) 1998-12-09 Completed [facility] 00:00:00 [facility] DTAP 1998-12-09 Completed [facility] 00:00:00 [facility] HIB 4 Dose Schedule 1998-12-09 Completed [facility] 00:00:00 [facility] Polio (IPV/OPV) 1998-12-09 Completed [facility] 00:00:00 [facility] DTAP 1998-12-09 Completed [facility] 00:00:00 [facility] HIB 4 Dose Schedule 1998-12-09 Completed [facility] 00:00:00 [facility] Polio (IPV/OPV) 1998-12-09 Completed [facility] 00:00:00 [facility] DTAP 1998-12-09 Completed [facility] 00:00:00 [facility] HIB 4 Dose Schedule 1998-12-09 Completed [facility] 00:00:00 [facility] Polio (IPV/OPV) 1998-12-09 Completed [facility] 00:00:00 [facility] DTAP 1998-12-09 Completed [facility] 00:00:00 [facility] HIB 4 Dose Schedule 1998-12-09 Completed [facility] 00:00:00 [facility] Polio (IPV/OPV) 1998-12-09 Completed [facility] 00:00:00 [facility] DTAP 1998-12-09 Completed [facility] 00:00:00 [facility] HIB 4 Dose Schedule 1998-12-09 Completed [facility] 00:00:00 [facility] Polio (IPV/OPV) 1998-12-09 Completed [facility] 00:00:00 [facility] DTAP 1998-12-09 Completed [facility] 00:00:00 [facility] HIB 4 Dose Schedule 1998-12-09 Completed [facility] 00:00:00 [facility] Polio (IPV/OPV) 1998-12-09 Completed [facility] 00:00:00 [facility] DTAP 1998-12-09 Completed [facility] 00:00:00 [facility] HIB 4 Dose Schedule 1998-12-09 Completed [facility] 00:00:00 [facility] Polio (IPV/OPV) 1998-12-09 Completed [facility] 00:00:00 [facility] DTAP 1998-12-09 Completed [facility] 00:00:00 [facility] HIB 4 Dose Schedule 1998-12-09 Completed [facility] 00:00:00 [facility] Polio (IPV/OPV) 1998-12-09 Completed [facility] 00:00:00 [facility] DTAP 1998-12-09 Completed [facility] 00:00:00 [facility] HIB 4 Dose Schedule 1998-12-09 Completed [facility] 00:00:00 [facility] Polio (IPV/OPV) 1998-12-09 Completed [facility] 00:00:00 [facility] DTAP 1998-12-09 Completed [facility] 00:00:00 [facility] HIB 4 Dose Schedule 1998-12-09 Completed [facility] 00:00:00 [facility] Polio (IPV/OPV) 1998-12-09 Completed [facility] 00:00:00 [facility] DTAP 1998-12-09 Completed [facility] 00:00:00 [facility] HIB 4 Dose Schedule 1998-12-09 Completed [facility] 00:00:00 [facility] Polio (IPV/OPV) 1998-12-09 Completed [facility] 00:00:00 [facility] DTAP 1998-12-09 Completed [facility] 00:00:00 [facility] HIB 4 Dose Schedule 1998-12-09 Completed [facility] 00:00:00 [facility] Polio (IPV/OPV) 1998-12-09 Completed [facility] 00:00:00 [facility] DTAP 1998-12-09 Completed [facility] 00:00:00 [facility] HIB 4 Dose Schedule 1998-12-09 Completed [facility] 00:00:00 [facility] Polio (IPV/OPV) 1998-12-09 Completed [facility] 00:00:00 [facility] DTAP 1998-12-09 Completed [facility] 00:00:00 [facility] HIB 4 Dose Schedule 1998-12-09 Completed [facility] 00:00:00 [facility] Polio (IPV/OPV) 1998-12-09 Completed [facility] 00:00:00 [facility] DTAP 1998-12-09 Completed [facility] 00:00:00 [facility] HIB 4 Dose Schedule 1998-12-09 Completed [facility] 00:00:00 [facility] Polio (IPV/OPV) 1998-12-09 Completed [facility] 00:00:00 [facility] DTAP 1998-12-09 Completed [facility] 00:00:00 [facility] HIB 4 Dose Schedule 1998-12-09 Completed [facility] 00:00:00 [facility] Polio (IPV/OPV) 1998-12-09 Completed [facility] 00:00:00 [facility] DTAP 1998-12-09 Completed [facility] 00:00:00 [facility] HIB 4 Dose Schedule 1998-12-09 Completed [facility] 00:00:00 [facility] Polio (IPV/OPV) 1998-12-09 Completed [facility] 00:00:00 [facility] DTAP 1998-12-09 Completed [facility] 00:00:00 [facility] MMR 1998-07-20 Completed [facility] 00:00:00 [facility] Polio (IPV/OPV) 1998-07-20 Completed [facility] 00:00:00 [facility] Varicella 1998-07-20 Completed [facility] of (varivax)(chicken 00:00:00 [facility] edical pox) [facility] MMR 1998-07-20 Completed [facility] 00:00:00 [facility] Polio (IPV/OPV) 1998-07-20 Completed [facility] 00:00:00 [facility] Varicella 1998-07-20 Completed [facility] (varivax)(chicken 00:00:00 [facility] edical pox) Branch MMR 1998-07-20 Completed [facility] 00:00:00 [facility] Polio (IPV/OPV) 1998-07-20 Completed [facility] 00:00:00 [facility] Varicella 1998-07-20 Completed [facility] (varivax)(chicken 00:00:00 [facility] edical pox) Branch MMR 1998-07-20 Completed [facility] 00:00:00 [facility] Polio (IPV/OPV) 1998-07-20 Completed [facility] 00:00:00 [facility] Varicella 1998-07-20 Completed [facility] (varivax)(chicken 00:00:00 [facility] edical pox) Branch MMR 1998-07-20 Completed [facility] 00:00:00 [facility] Polio (IPV/OPV) 1998-07-20 Completed [facility] 00:00:00 [facility] Varicella 1998-07-20 Completed [facility] (varivax)(chicken 00:00:00 [facility] MMR 1998-07-20 Completed [facility] 00:00:00 [facility] Polio (IPV/OPV) 1998-07-20 Completed [facility] 00:00:00 [facility] Varicella 1998-07-20 Completed [facility] (varivax)(chicken 00:00:00 [facility] edical pox) Branch MMR 1998-07-20 Completed [facility] 00:00:00 [facility] Polio (IPV/OPV) 1998-07-20 Completed [facility] 00:00:00 [facility] Varicella 1998-07-20 Completed [facility] (varivax)(chicken 00:00:00 [facility] edical pox) Branch MMR 1998-07-20 Completed [facility] 00:00:00 [facility] Polio (IPV/OPV) 1998-07-20 Completed [facility] 00:00:00 [facility] Varicella 1998-07-20 Completed [facility] (varivax)(chicken 00:00:00 [facility] edical pox) Branch MMR 1998-07-20 Completed [facility] 00:00:00 [facility] Polio (IPV/OPV) 1998-07-20 Completed [facility] 00:00:00 [facility] Varicella 1998-07-20 Completed [facility] (varivax)(chicken 00:00:00 [facility] edical pox) Branch MMR 1998-07-20 Completed [facility] 00:00:00 [facility] Polio (IPV/OPV) 1998-07-20 Completed [facility] 00:00:00 [facility] Varicella 1998-07-20 Completed [facility] (varivax)(chicken 00:00:00 [facility] edical pox) Branch MMR 1998-07-20 Completed [facility] 00:00:00 [facility] Polio (IPV/OPV) 1998-07-20 Completed [facility] 00:00:00 [facility] Varicella 1998-07-20 Completed [facility] (varivax)(chicken 00:00:00 [facility] MMR 1998-07-20 Completed [facility] 00:00:00 [facility] Polio (IPV/OPV) 1998-07-20 Completed [facility] 00:00:00 [facility] Varicella 1998-07-20 Completed [facility] (varivax)(chicken 00:00:00 [place] [facility] MMR 1998-07-20 Completed [facility] 00:00:00 [facility] Polio (IPV/OPV) 1998-07-20 Completed [facility] 00:00:00 [facility] Varicella 1998-07-20 Completed [facility] (varivax)(chicken 00:00:00 [facility] edical pox) Branch MMR 1998-07-20 Completed [facility] 00:00:00 [facility] Polio (IPV/OPV) 1998-07-20 Completed [facility] 00:00:00 [facility] Varicella 1998-07-20 Completed [facility] (varivax)(chicken 00:00:00 [facility] edical pox) Branch MMR 1998-07-20 Completed [facility] 00:00:00 [facility] Polio (IPV/OPV) 1998-07-20 Completed [facility] 00:00:00 [facility] Varicella 1998-07-20 Completed [facility] (varivax)(chicken 00:00:00 [facility] edical pox) Branch MMR 1998-07-20 Completed [facility] 00:00:00 [facility] Polio (IPV/OPV) 1998-07-20 Completed [facility] 00:00:00 [facility] Varicella 1998-07-20 Completed [facility] (varivax)(chicken 00:00:00 [facility] edical pox) Branch MMR 1998-07-20 Completed [facility] 00:00:00 [facility] Polio (IPV/OPV) 1998-07-20 Completed [facility] 00:00:00 [facility] Varicella 1998-07-20 Completed [facility] (varivax)(chicken 00:00:00 [facility] edical pox) Branch MMR 1998-07-20 Completed [facility] 00:00:00 [facility] Polio (IPV/OPV) 1998-07-20 Completed [facility] 00:00:00 [facility] Varicella 1998-07-20 Completed [facility] (varivax)(chicken 00:00:00 [facility] MMR 1998-07-20 Completed [facility] 00:00:00 [facility] Polio (IPV/OPV) 1998-07-20 Completed [facility] 00:00:00 [facility] Varicella 1998-07-20 Completed [facility] (varivax)(chicken 00:00:00 [place] [facility] MMR 1998-07-20 Completed [facility] 00:00:00 [facility] Polio (IPV/OPV) 1998-07-20 Completed [facility] 00:00:00 [facility] Varicella 1998-07-20 Completed [facility] (varivax)(chicken 00:00:00 [facility] edical pox) Branch MMR 1998-07-20 Completed [facility] 00:00:00 [facility] Polio (IPV/OPV) 1998-07-20 Completed [facility] 00:00:00 [facility] Varicella 1998-07-20 Completed [facility] (varivax)(chicken 00:00:00 [facility] edical pox) Branch MMR 1998-07-20 Completed [facility] 00:00:00 [facility] Polio (IPV/OPV) 1998-07-20 Completed [facility] 00:00:00 [facility] Varicella 1998-07-20 Completed [facility] (varivax)(chicken 00:00:00 [facility] edical pox) Branch MMR 1998-07-20 Completed [facility] 00:00:00 [facility] Polio (IPV/OPV) 1998-07-20 Completed [facility] 00:00:00 [facility] Varicella 1998-07-20 Completed [facility] (varivax)(chicken 00:00:00 [facility] edical pox) Branch MMR 1998-07-20 Completed [facility] 00:00:00 [facility] Polio (IPV/OPV) 1998-07-20 Completed [facility] 00:00:00 [facility] Varicella 1998-07-20 Completed [facility] (varivax)(chicken 00:00:00 [facility] edical pox) Branch DTAP 1998-05-20 Completed [facility] 00:00:00 [facility] HIB 4 Dose Schedule 1998-05-20 Completed [facility] 00:00:00 [facility] Hep B, Adol or Pedi 1998-05-20 Completed [facility]ive [facility] of Dosage 00:00:00 [facility] DTAP 1998-05-20 Completed [facility] 00:00:00 [facility] HIB 4 Dose Schedule 1998-05-20 Completed [facility] 00:00:00 [facility] Hep B, Adol or Pedi 1998-05-20 Completed [facility] of Dosage 00:00:00 [facility] DTAP 1998-05-20 Completed [facility] 00:00:00 [facility] HIB 4 Dose Schedule 1998-05-20 Completed [facility] 00:00:00 [facility] Hep B, Adol or Pedi 1998-05-20 Completed [facility] of Dosage 00:00:00 [facility] DTAP 1998-05-20 Completed [facility] 00:00:00 [facility] HIB 4 Dose Schedule 1998-05-20 Completed [facility] 00:00:00 [facility] Hep B, Adol or Pedi 1998-05-20 Completed [facility] of Dosage 00:00:00 [facility] DTAP 1998-05-20 Completed [facility] 00:00:00 [facility] HIB 4 Dose Schedule 1998-05-20 Completed [facility] 00:00:00 [facility] Hep B, Adol or Pedi 1998-05-20 Completed [facility]ive [facility] of Dosage 00:00:00 [facility] DTAP 1998-05-20 Completed [facility] 00:00:00 [facility] HIB 4 Dose Schedule 1998-05-20 Completed [facility] 00:00:00 [facility] Hep B, Adol or Pedi 1998-05-20 Completed [facility] of Dosage 00:00:00 [facility] DTAP 1998-05-20 Completed [facility] 00:00:00 [facility] HIB 4 Dose Schedule 1998-05-20 Completed [facility] 00:00:00 [facility] Hep B, Adol or Pedi 1998-05-20 Completed [facility] of Dosage 00:00:00 [facility] DTAP 1998-05-20 Completed [facility] 00:00:00 [facility] HIB 4 Dose Schedule 1998-05-20 Completed [facility] 00:00:00 [facility] Hep B, Adol or Pedi 1998-05-20 Completed [facility] of Dosage 00:00:00 [facility] DTAP 1998-05-20 Completed [facility] 00:00:00 [facility] HIB 4 Dose Schedule 1998-05-20 Completed [facility] 00:00:00 [facility] Hep B, Adol or Pedi 1998-05-20 Completed [facility] of Dosage 00:00:00 [facility] DTAP 1998-05-20 Completed [facility] 00:00:00 [facility] HIB 4 Dose Schedule 1998-05-20 Completed [facility] 00:00:00 [facility] Hep B, Adol or Pedi 1998-05-20 Completed [facility] of Dosage 00:00:00 [facility] DTAP 1998-05-20 Completed [facility] 00:00:00 [facility] HIB 4 Dose Schedule 1998-05-20 Completed [facility] 00:00:00 [facility] Hep B, Adol or Pedi 1998-05-20 Completed [facility] Dosage 00:00:00 [facility] DTAP 1998-05-20 Completed [facility] 00:00:00 [facility] HIB 4 Dose Schedule 1998-05-20 Completed [facility] 00:00:00 [facility] Hep B, Adol or Pedi 1998-05-20 Completed [facility] of Dosage 00:00:00 [facility] DTAP 1998-05-20 Completed [facility] 00:00:00 [facility] HIB 4 Dose Schedule 1998-05-20 Completed [facility] 00:00:00 [facility] Hep B, Adol or Pedi 1998-05-20 Completed [facility] of Dosage 00:00:00 [facility] DTAP 1998-05-20 Completed [facility] 00:00:00 [facility] HIB 4 Dose Schedule 1998-05-20 Completed [facility] 00:00:00 [facility] Hep B, Adol or Pedi 1998-05-20 Completed [facility] Dosage 00:00:00 [facility] DTAP 1998-05-20 Completed [facility] 00:00:00 [facility] HIB 4 Dose Schedule 1998-05-20 Completed [facility] 00:00:00 [facility] Hep B, Adol or Pedi 1998-05-20 Completed [facility] Dosage 00:00:00 [facility] DTAP 1998-05-20 Completed [facility] 00:00:00 [facility] HIB 4 Dose Schedule 1998-05-20 Completed [facility] 00:00:00 [facility] Hep B, Adol or Pedi 1998-05-20 Completed [facility] Dosage 00:00:00 [facility] DTAP 1998-05-20 Completed [facility] 00:00:00 [facility] HIB 4 Dose Schedule 1998-05-20 Completed [facility] 00:00:00 [facility] Hep B, Adol or Pedi 1998-05-20 Completed [facility] Dosage 00:00:00 [facility] DTAP 1998-05-20 Completed [facility] 00:00:00 [facility] HIB 4 Dose Schedule 1998-05-20 Completed [facility] 00:00:00 [facility] Hep B, Adol or Pedi 1998-05-20 Completed [facility] Dosage 00:00:00 [facility] DTAP 1998-05-20 Completed [facility] 00:00:00 [facility] HIB 4 Dose Schedule 1998-05-20 Completed [facility] 00:00:00 [facility] Hep B, Adol or Pedi 1998-05-20 Completed [facility] Dosage 00:00:00 [facility] DTAP 1998-05-20 Completed [facility] 00:00:00 [facility] HIB 4 Dose Schedule 1998-05-20 Completed [facility] 00:00:00 [facility] Hep B, Adol or Pedi 1998-05-20 Completed [facility] Dosage 00:00:00 [facility] DTAP 1998-05-20 Completed [facility] 00:00:00 [facility] HIB 4 Dose Schedule 1998-05-20 Completed [facility] 00:00:00 [facility] Hep B, Adol or Pedi 1998-05-20 Completed [facility] Dosage 00:00:00 [facility] DTAP 1998-05-20 Completed [facility] 00:00:00 [facility] HIB 4 Dose Schedule 1998-05-20 Completed [facility] 00:00:00 [facility] Hep B, Adol or Pedi 1998-05-20 Completed [facility] Dosage 00:00:00 [facility] DTAP 1998-05-20 Completed [facility] 00:00:00 [facility] HIB 4 Dose Schedule 1998-05-20 Completed [facility] 00:00:00 [facility] Hep B, Adol or Pedi 1998-05-20 Completed [facility] Dosage 00:00:00 [facility] DTAP 1998-05-20 Completed [facility] 00:00:00 [facility] HIB 4 Dose Schedule 1998-05-20 Completed [facility] 00:00:00 [facility] Hep B, Adol or Pedi 1998-05-20 Completed [facility] Dosage 00:00:00 [facility] DTAP 1998-03-23 Completed [facility] 00:00:00 [facility] HIB 4 Dose Schedule 1998-03-23 Completed [facility] 00:00:00 [facility] Hep B, Adol or Pedi 1998-03-23 Completed [facility] Dosage 00:00:00 [facility] Polio (IPV/OPV) 1998-03-23 Completed [facility] 00:00:00 [facility] DTAP 1998-03-23 Completed [facility] 00:00:00 [facility] HIB 4 Dose Schedule 1998-03-23 Completed [facility] 00:00:00 [facility] Hep B, Adol or Pedi 1998-03-23 Completed [facility] Dosage 00:00:00 [facility] Polio (IPV/OPV) 1998-03-23 Completed [facility] 00:00:00 [facility] DTAP 1998-03-23 Completed [facility] 00:00:00 [facility] HIB 4 Dose Schedule 1998-03-23 Completed [facility] 00:00:00 [facility] Hep B, Adol or Pedi 1998-03-23 Completed [facility] Dosage 00:00:00 [facility] Polio (IPV/OPV) 1998-03-23 Completed [facility] 00:00:00 [facility] DTAP 1998-03-23 Completed [facility] 00:00:00 [facility] HIB 4 Dose Schedule 1998-03-23 Completed [facility] 00:00:00 [facility] Hep B, Adol or Pedi 1998-03-23 Completed [facility] Dosage 00:00:00 [facility] Polio (IPV/OPV) 1998-03-23 Completed [facility] 00:00:00 [facility] DTAP 1998-03-23 Completed [facility] 00:00:00 [facility] HIB 4 Dose Schedule 1998-03-23 Completed [facility] 00:00:00 [facility] Hep B, Adol or Pedi 1998-03-23 Completed [facility] Dosage 00:00:00 [facility] Polio (IPV/OPV) 1998-03-23 Completed [facility] 00:00:00 [facility] DTAP 1998-03-23 Completed [facility] 00:00:00 [facility] HIB 4 Dose Schedule 1998-03-23 Completed [facility] 00:00:00 [facility] Hep B, Adol or Pedi 1998-03-23 Completed [facility] Dosage 00:00:00 [facility] Polio (IPV/OPV) 1998-03-23 Completed [facility] 00:00:00 [facility] DTAP 1998-03-23 Completed [facility] 00:00:00 [facility] HIB 4 Dose Schedule 1998-03-23 Completed [facility] 00:00:00 [facility] Hep B, Adol or Pedi 1998-03-23 Completed [facility] Dosage 00:00:00 [facility] Polio (IPV/OPV) 1998-03-23 Completed [facility] 00:00:00 [facility] DTAP 1998-03-23 Completed [facility] 00:00:00 [facility] HIB 4 Dose Schedule 1998-03-23 Completed [facility] 00:00:00 [facility] Hep B, Adol or Pedi 1998-03-23 Completed [facility] Dosage 00:00:00 [facility] Polio (IPV/OPV) 1998-03-23 Completed [facility] 00:00:00 [facility] DTAP 1998-03-23 Completed [facility] 00:00:00 [facility] HIB 4 Dose Schedule 1998-03-23 Completed [facility] 00:00:00 [facility] Hep B, Adol or Pedi 1998-03-23 Completed [facility] Dosage 00:00:00 [facility] Polio (IPV/OPV) 1998-03-23 Completed [facility] 00:00:00 [facility] DTAP 1998-03-23 Completed [facility] 00:00:00 [facility] HIB 4 Dose Schedule 1998-03-23 Completed [facility] 00:00:00 [facility] Hep B, Adol or Pedi 1998-03-23 Completed [facility] Dosage 00:00:00 [facility] Polio (IPV/OPV) 1998-03-23 Completed [facility] 00:00:00 [facility] DTAP 1998-03-23 Completed [facility] 00:00:00 [facility] HIB 4 Dose Schedule 1998-03-23 Completed [facility] 00:00:00 [facility] Hep B, Adol or Pedi 1998-03-23 Completed [facility] Dosage 00:00:00 [facility] Polio (IPV/OPV) 1998-03-23 Completed [facility] 00:00:00 [facility] DTAP 1998-03-23 Completed [facility] 00:00:00 [facility] HIB 4 Dose Schedule 1998-03-23 Completed [facility] 00:00:00 [facility] Hep B, Adol or Pedi 1998-03-23 Completed [facility] Dosage 00:00:00 [facility] Polio (IPV/OPV) 1998-03-23 Completed [facility] 00:00:00 [facility] DTAP 1998-03-23 Completed [facility] 00:00:00 [facility] HIB 4 Dose Schedule 1998-03-23 Completed [facility] 00:00:00 [facility] Hep B, Adol or Pedi 1998-03-23 Completed [facility] Dosage 00:00:00 [facility] Polio (IPV/OPV) 1998-03-23 Completed [facility] 00:00:00 [facility] DTAP 1998-03-23 Completed [facility] 00:00:00 [facility] HIB 4 Dose Schedule 1998-03-23 Completed [facility] 00:00:00 [facility] Hep B, Adol or Pedi 1998-03-23 Completed [facility] Dosage 00:00:00 [facility] Polio (IPV/OPV) 1998-03-23 Completed [facility] 00:00:00 [facility] DTAP 1998-03-23 Completed [facility] 00:00:00 [facility] HIB 4 Dose Schedule 1998-03-23 Completed [facility] 00:00:00 [facility] Hep B, Adol or Pedi 1998-03-23 Completed [facility] Dosage 00:00:00 [facility] Polio (IPV/OPV) 1998-03-23 Completed [facility]00 [facility] DTAP 1998-03-23 Completed [facility] 00:00:00 [facility] HIB 4 Dose Schedule 1998-03-23 Completed [facility] 00:00:00 [facility] Hep B, Adol or Pedi 1998-03-23 Completed [facility]ive [facility]ity of Dosage 00:00:00 [facility] Polio (IPV/OPV) 1998-03-23 Completed [facility] 00:00:00 [facility] DTAP 1998-03-23 Completed [facility] 00:00:00 [facility] HIB 4 Dose Schedule 1998-03-23 Completed [facility] of 00:00:00 [facility] Hep B, Adol or Pedi 1998-03-23 Completed [facility]ive rs[facility] of Dosage 00:00:00 [facility] Polio (IPV/OPV) 1998-03-23 Completed [facility] 00[facility]:00 [facility] DTAP 1998-03-23 Completed [facility] 00:00:00 [facility] HIB 4 Dose Schedule 1998-03-23 Completed [facility]ive rs[facility] of 00:00:00 [facility] Hep B, Adol or Pedi 1998-03-23 Completed [facility]ive [facility] of Dosage 00:00:00 [facility] Polio (IPV/OPV) 1998-03-23 Completed [facility] 00:00:00 [facility] DTAP 1998-03-23 Completed [facility] 00:00:00 [facility] HIB 4 Dose Schedule 1998-03-23 Completed [facility] of 00:00:00 [facility] Hep B, Adol or Pedi 1998-03-23 Completed [facility]ive rsity of Dosage 00:00:00 [facility] Polio (IPV/OPV) 1998-03-23 Completed [facility] 00:00:00 [facility] DTAP 1998-03-23 Completed [facility] 00:00:00 [facility] HIB 4 Dose Schedule 1998-03-23 Completed [facility] 00:00:00 [facility] Hep B, Adol or Pedi 1998-03-23 Completed [facility]ive rs[facility] of Dosage 00:00:00 [facility] Polio (IPV/OPV) 1998-03-23 Completed [facility] 00[facility]:00 [facility] DTAP 1998-03-23 Completed [facility] 00:00:00 [facility] HIB 4 Dose Schedule 1998-03-23 Completed [facility]ive [facility] of 00:00:00 [facility] Hep B, Adol or Pedi 1998-03-23 Completed [facility]ive rsity of Dosage 00:00:00 [facility] Polio (IPV/OPV) 1998-03-23 Completed [facility] 00:00:00 [facility] DTAP 1998-03-23 Completed [facility] 00:00:00 [facility] HIB 4 Dose Schedule 1998-03-23 Completed [facility] 00:00:00 [facility] Hep B, Adol or Pedi 1998-03-23 Completed [facility] rs[facility] of Dosage 00:00:00 [facility] Polio (IPV/OPV) 1998-03-23 Completed [facility] 00:00:00 [facility] DTAP 1998-03-23 Completed [facility] 00:00:00 [facility] HIB 4 Dose Schedule 1998-03-23 Completed [facility] rs[facility] 00:00:00 [facility] Hep B, Adol or Pedi 1998-03-23 Completed [facility]ive rs[facility] of Dosage 00:00:00 [facility] Polio (IPV/OPV) 1998-03-23 Completed [facility] 00:00:00 [facility] DTAP 1998-03-23 Completed [facility] 00:00:00 [facility] HIB 4 Dose Schedule 1998-03-23 Completed [facility] 00:00:00 [facility] Hep B, Adol or Pedi 1998-03-23 Completed [facility] Dosage 00:00:00 [facility] Polio (IPV/OPV) 1998-03-23 Completed [facility] 00:00:00 [facility] DTAP 1997 Completed [facility] 00:00:00 [facility] HIB 4 Dose Schedule 1997 Completed [facility] 00:00:00 [facility] Hep B, Adol or Pedi 1997 Completed [facility]ive [facility] Dosage 00:00:00 [facility] Polio (IPV/OPV) 1997 Completed [facility] 00:00:00 [facility] DTAP 1997 Completed [facility] 00:00:00 [facility] HIB 4 Dose Schedule 1997 Completed [facility] 00:00:00 [facility] Hep B, Adol or Pedi 1997 Completed [facility]ive [facility] Dosage 00:00:00 [facility] Polio (IPV/OPV) 1997 Completed [facility] 00:00:00 [facility] DTAP 1997 Completed [facility] 00:00:00 [facility] HIB 4 Dose Schedule 1997 Completed [facility] 00:00:00 [facility] Hep B, Adol or Pedi 1997 Completed [facility] Dosage 00:00:00 [facility] Polio (IPV/OPV) 1997 Completed [facility] 00:00:00 [facility] DTAP 1997 Completed [facility] 00:00:00 [facility] HIB 4 Dose Schedule 1997 Completed [facility] 00:00:00 [facility] Hep B, Adol or Pedi 1997 Completed [facility] Dosage 00:00:00 [facility] Polio (IPV/OPV) 1997 Completed [facility] 00:00:00 [facility] DTAP 1997 Completed [facility] 00:00:00 [facility] HIB 4 Dose Schedule 1997 Completed [facility] 00:00:00 [facility] Hep B, Adol or Pedi 1997 Completed [facility] Dosage 00:00:00 [facility] Polio (IPV/OPV) 1997 Completed [facility] 00:00:00 [facility] DTAP 1997 Completed [facility] 00:00:00 [facility] HIB 4 Dose Schedule 1997 Completed [facility] 00:00:00 [facility] Hep B, Adol or Pedi 1997 Completed [facility] Dosage 00:00:00 [facility] Polio (IPV/OPV) 1997 Completed [facility] 00:00:00 [facility] DTAP 1997 Completed [facility] 00:00:00 [facility] HIB 4 Dose Schedule 1997 Completed [facility] 00:00:00 [facility] Hep B, Adol or Pedi 1997 Completed [facility] Dosage 00:00:00 [facility] Polio (IPV/OPV) 1997 Completed [facility] 00:00:00 [facility] DTAP 1997 Completed [facility] 00:00:00 [facility] HIB 4 Dose Schedule 1997 Completed [facility] 00:00:00 [facility] Hep B, Adol or Pedi 1997 Completed [facility] Dosage 00:00:00 [facility] Polio (IPV/OPV) 1997 Completed [facility] 00:00:00 [facility] DTAP 1997 Completed [facility] 00:00:00 [facility] HIB 4 Dose Schedule 1997 Completed [facility] 00:00:00 [facility] Hep B, Adol or Pedi 1997 Completed [facility] Dosage 00:00:00 [facility] Polio (IPV/OPV) 1997 Completed [facility] 00:00:00 [facility] DTAP 1997 Completed [facility] 00:00:00 [facility] HIB 4 Dose Schedule 1997 Completed [facility] 00:00:00 [facility] Hep B, Adol or Pedi 1997 Completed [facility] Dosage 00:00:00 [facility] Polio (IPV/OPV) 1997 Completed [facility] 00:00:00 [facility] DTAP 1997 Completed [facility] 00:00:00 [facility] HIB 4 Dose Schedule 1997 Completed [facility] 00:00:00 [facility] Hep B, Adol or Pedi 1997 Completed [facility] Dosage 00:00:00 [facility] Polio (IPV/OPV) 1997 Completed [facility] 00:00:00 [facility] DTAP 1997 Completed [facility] 00:00:00 [facility] HIB 4 Dose Schedule 1997 Completed [facility] 00:00:00 [facility] Hep B, Adol or Pedi 1997 Completed [facility] Dosage 00:00:00 [facility] Polio (IPV/OPV) 1997 Completed [facility] 00:00:00 [facility] DTAP 1997 Completed [facility] 00:00:00 [facility] HIB 4 Dose Schedule 1997 Completed [facility] of 00:00:00 [facility] Hep B, Adol or Pedi 1997 Completed [facility] Dosage 00:00:00 [facility] Polio (IPV/OPV) 1997 Completed [facility] 00:00:00 [facility] DTAP 1997 Completed [facility] 00:00:00 [facility] HIB 4 Dose Schedule 1997 Completed [facility] 00:00:00 [facility] Hep B, Adol or Pedi 1997 Completed [facility] Dosage 00:00:00 [facility] Polio (IPV/OPV) 1997 Completed [facility] 00:00:00 [facility] DTAP 1997 Completed [facility] 00:00:00 [facility] HIB 4 Dose Schedule 1997 Completed [facility] of 00:00:00 [facility] Hep B, Adol or Pedi 1997 Completed [facility] Dosage 00:00:00 [facility] Polio (IPV/OPV) 1997 Completed [facility] 00:00:00 [facility] DTAP 1997 Completed [facility] 00:00:00 [facility] HIB 4 Dose Schedule 1997 Completed [facility] 00:00:00 [facility] Hep B, Adol or Pedi 1997 Completed [facility] Dosage 00:00:00 [facility] Polio (IPV/OPV) 1997 Completed [facility] 00:00:00 [facility] DTAP 1997 Completed [facility] 00:00:00 [facility] HIB 4 Dose Schedule 1997 Completed [facility] 00:00:00 [facility] Hep B, Adol or Pedi 1997 Completed [facility] Dosage 00:00:00 [facility] Polio (IPV/OPV) 1997 Completed [facility] 00:00:00 [facility] DTAP 1997 Completed [facility] 00:00:00 [facility] HIB 4 Dose Schedule 1997 Completed [facility] 00:00:00 [facility] Hep B, Adol or Pedi 1997 Completed [facility] Dosage 00:00:00 [facility] Polio (IPV/OPV) 1997 Completed [facility] 00[facility]00:00 [facility] DTAP 1997 Completed [facility] 00:00:00 [facility] HIB 4 Dose Schedule 1997 Completed [facility] 00:00:00 [facility] Hep B, Adol or Pedi 1997 Completed [facility] Dosage 00:00:00 [facility] Polio (IPV/OPV) 1997 Completed [facility] 00:00:00 [facility] DTAP 1997 Completed [facility] 00:00:00 [facility] HIB 4 Dose Schedule 1997 Completed [facility] 00:00:00 [facility] Hep B, Adol or Pedi 1997 Completed [facility] Dosage 00:00:00 [facility] Polio (IPV/OPV) 1997 Completed [facility] 00:00:00 [facility] DTAP 1997 Completed [facility] 00:00:00 [facility] HIB 4 Dose Schedule 1997 Completed [facility] 00:00:00 [facility] Hep B, Adol or Pedi 1997 Completed [facility] Dosage 00:00:00 [facility] Polio (IPV/OPV) 1997 Completed [facility] 00:00:00 [facility] DTAP 1997 Completed [facility] 00:00:00 [facility] HIB 4 Dose Schedule 1997 Completed [facility] 00:00:00 [facility] Hep B, Adol or Pedi 1997 Completed [facility] Dosage 00:00:00 [facility] Polio (IPV/OPV) 1997 Completed [facility] 00:00:00 [facility] DTAP 1997 Completed [facility] 00:00:00 [facility] HIB 4 Dose Schedule 1997 Completed [facility] 00:00:00 [facility] Hep B, Adol or Pedi 1997 Completed [facility] Dosage 00:00:00 [facility] Polio (IPV/OPV) 1997 Completed [facility] 00:00:00 [facility] DTAP 1997 Completed [facility] 00:00:00 [facility] HIB 4 Dose Schedule 1997 Completed [facility] 00:00:00 [facility] Hep B, Adol or Pedi 1997 Completed [facility] Dosage 00:00:00 [facility] Polio (IPV/OPV) 1997 Completed [facility] 00:[facility]:00 [facility] Influenza Virus Unknown Completed [facility] Vaccine Quad .5 mL [facility] 6+ MO Branch (FLUZONE/FLULAVAL/FL UARIX) TDAP Unknown Completed [facility] DTAP Unknown Completed [facility] DTAP Unknown Completed [facility] DTAP Unknown Completed [facility] DTAP Unknown Completed [facility] DTAP Unknown Completed [facility] HIB 4 Dose Schedule Unknown Completed [facility]ive rsity of [facility] HIB 4 Dose Schedule Unknown Completed Unive rsity [facility] HIB 4 Dose Schedule Unknown Completed Unive rsity [facility] HIB 4 Dose Schedule Unknown Completed Unive rsity [facility] HEPATITIS A Unknown Completed [facility] Hep B, Adol or Pedi Unknown Completed [facility] Dosage [facility] Hep B, Adol or Pedi Unknown Completed [facility]os[facility] Hep B, Adol or Pedi Unknown Completed [facility]os[facility] HPV Unknown Completed [facility] HPV Unknown Completed [facility] HPV Unknown Completed [facility] Meningococcal Unknown Completed [facility] (groups A, C, Y and Branc h W-135) conjugate vaccine (MCV4P) MMR Unknown Completed [facility] MMR Unknown Completed [facility] Polio (IPV/OPV) Unknown Completed [facility] Polio (IPV/OPV) Unknown Completed [facility] Polio (IPV/OPV) Unknown Completed [facility] Polio (IPV/OPV) Unknown Completed [facility] Polio (IPV/OPV) Unknown Completed [facility] TDAP Unknown Completed [facility] Varicella Unknown Completed [facility] (varivax)(chicken [place] [facility] pox) Branch Varicella Unknown Completed [facility] (varivax)(chicken [place] [facility] pox) Branch Pneumococcal 7 Unknown Completed [facility], PCV7 [facility] (Prevnar7) Branch Influenza Virus Unknown Completed [facility] Vaccine Quad .5 mL [facility] 6+ [place] [facility] (FLUZONE/FLULAVAL/FL UARIX) TDAP Unknown Completed [facility] Influenza Virus Unknown Completed [facility] Vaccine Quad .5 mL [facility] 6+ [place] [facility] (FLUZONE/FLULAVAL/FL UARIX) TDAP Unknown Completed [facility] DTAP Unknown Completed [facility] DTAP Unknown Completed [facility] DTAP Unknown Completed [facility] DTAP Unknown Completed [facility] DTAP Unknown Completed [facility] HIB 4 Dose Schedule Unknown Completed Unive [facility] HIB 4 Dose Schedule Unknown Completed Unive [facility] HIB 4 Dose Schedule Unknown Completed Unive [facility] HIB 4 Dose Schedule Unknown Completed Unive [facility] HEPATITIS A Unknown Completed [facility] Hep B, Adol or Pedi Unknown Completed [facility]osage [facility] Hep B, Adol or Pedi Unknown Completed Unive rs[facility] Hep B, Adol or Pedi Unknown Completed [facility]ive rs[facility] of [facility] HPV Unknown Completed [facility] HPV Unknown Completed [facility] HPV Unknown Completed [facility] Meningococcal Unknown Completed [facility] (groups A, C, Y and Branc h W-135) conjugate vaccine (MCV4P) MMR Unknown Completed [facility] MMR Unknown Completed [facility] Polio (IPV/OPV) Unknown Completed [facility] Polio (IPV/OPV) Unknown Completed [facility] Polio (IPV/OPV) Unknown Completed [facility] Polio (IPV/OPV) Unknown Completed [facility] Polio (IPV/OPV) Unknown Completed [facility] TDAP Unknown Completed [facility] Varicella Unknown Completed [facility] (varivax)(chicken [place] [facility] pox) Branch Varicella Unknown Completed [facility] (varivax)(chicken [place] [facility] pox) Branch Pneumococcal 7 Unknown Completed [facility], PCV7 [facility] (Prevnar7) Branch Influenza Virus Unknown Completed [facility] Vaccine Quad .5 mL [facility] 6+ [place] [facility] (FLUZONE/FLULAVAL/FL UARIX) TDAP Unknown Completed [facility] Influenza Virus Unknown Completed [facility] Vaccine Quad .5 mL [facility] IM 6+ [place] [facility] (FLUZONE/FLULAVAL/FL UARIX) TDAP Unknown Completed [facility] DTAP Unknown Completed [facility] DTAP Unknown Completed [facility] DTAP Unknown Completed [facility] DTAP Unknown Completed [facility] DTAP Unknown Completed [facility] HIB 4 Dose Schedule Unknown Completed [facility] HIB 4 Dose Schedule Unknown Completed [facility] HIB 4 Dose Schedule Unknown Completed Unive [facility] HIB 4 Dose Schedule Unknown Completed [facility] HEPATITIS A Unknown Completed [facility] Hep B, Adol or Pedi Unknown [facility], [facility], [facility]i [facility] Completed [facility] HPV Unknown Completed [facility] HPV Unknown Completed [facility] HPV Unknown Completed [facility] Meningococcal Unknown Completed [facility] (groups A, C, Y and Branc h W-135) conjugate vaccine (MCV4P) MMR Unknown Completed [facility] MMR Unknown Completed [facility] Polio (IPV/OPV) Unknown Completed [facility] Polio (IPV/OPV) Unknown Completed [facility] Polio (IPV/OPV) Unknown Completed [facility] Polio (IPV/OPV) Unknown Completed [facility] Polio (IPV/OPV) Unknown Completed [facility] TDAP Unknown Completed [facility] Varicella Unknown Completed [facility] (varivax)(chicken [place] [facility] pox) [facility] Varicella Unknown Completed [facility] (varivax)(chicken [place] [facility] pox) Branch Pneumococcal 7 Unknown Completed [facility] Conjugate, PCV7 [facility] ical (Prevnar7) Branch Influenza Virus Unknown Completed [facility] Vaccine Quad .5 mL [facility] 6+ [place] [facility] (FLUZONE/FLULAVAL/FL UARIX) Influenza Virus Unknown Completed [facility] Vaccine Quad .5 mL [facility] 6+ [place] [facility] (FLUZONE/FLULAVAL/FL UARIX) TDAP Unknown Completed [facility] DTAP Unknown Completed [facility] DTAP Unknown Completed [facility] DTAP Unknown Completed [facility] DTAP Unknown Completed [facility] DTAP Unknown Completed [facility] HIB 4 Dose Schedule [facility] D[facility] Schedule Unknown Completed Unive [facility] HIB 4 Dose Schedule Unknown Completed Unive [facility] HIB 4 Dose Schedule Unknown Completed Unive [facility] HEPATITIS A Unknown Completed [facility] Hep B, Adol or Pedi Unknown Completed [facility] Dosage [facility] Hep B, Adol or Pedi Unknown Completed [facility] Hep B, Adol or Pedi [facility] HPV Unknown Completed [facility] HPV Unknown Completed [facility] Meningococcal Unknown Completed [facility] (groups A, C, Y and Branc h W-135) conjugate vaccine (MCV4P) MMR Unknown Completed [facility] MMR Unknown Completed [facility] Polio (IPV/OPV) Unknown Completed [facility] Polio (IPV/OPV) Unknown Completed [facility] Polio (IPV/OPV) Unknown Completed [facility] Polio (IPV/OPV) Unknown Completed [facility] Polio (IPV/OPV) Unknown Completed [facility] TDAP Unknown Completed [facility] Varicella Unknown Completed [facility] (varivax)(chicken [place] [facility] pox) Branch Varicella Unknown Completed [facility] (varivax)(chicken [place] [facility] pox) Branch Pneumococcal 7 Unknown Completed [facility] Conjugate, PCV7 [facility] ical (Prevnar7) Branch Influenza Virus Unknown Completed [facility] Vaccine Quad .5 mL [facility] IM 6+ [place] [facility] (FLUZONE/FLULAVAL/FL UARIX) TDAP Unknown Completed [facility] DTAP Unknown Completed [facility] DTAP Unknown Completed [facility] DTAP Unknown Completed [facility] DTAP Unknown Completed [facility] DTAP Unknown Completed [facility] HIB 4 Dose Schedule Unknown [facility] D[facility] Schedule [facility] Dose Schedule Unknown Completed Unive [facility] HIB 4 Dose Schedule Unknown Completed Unive [facility] HEPATITIS A Unknown Completed [facility] Hep B, Adol or Pedi Unknown Completed [facility]ive rs[facility] Dosage [facility] Hep B, Adol or Pedi Unknown Completed [facility] Hep B, Adol or Pedi [facility] Com[facility] HPV Unknown Completed [facility] HPV Unknown Completed [facility] Meningococcal Unknown Completed [facility] (groups A, C, Y and Branc h W-135) conjugate vaccine (MCV4P) MMR Unknown Completed [facility] MMR Unknown Completed [facility] Polio (IPV/OPV) Unknown Completed [facility] Polio (IPV/OPV) Unknown Completed [facility] Polio (IPV/OPV) Unknown Completed [facility] Polio (IPV/OPV) Unknown Completed [facility] Polio (IPV/OPV) Unknown Completed [facility] TDAP Unknown Completed [facility] Varicella Unknown Completed [facility] (varivax)(chicken [place] [facility] pox) Branch Varicella Unknown Completed [facility] (varivax)(chicken [place] [facility] pox) Branch Pneumococcal 7 Unknown Completed [facility] Conjugate, PCV7 [facility] ical (Prevnar7) Branch Influenza Virus Unknown Completed [facility] Vaccine Quad .5 mL [facility] IM 6+ [place] [facility] (FLUZONE/FLULAVAL/FL UARIX) TDAP Unknown Completed [facility] DTAP Unknown Completed [facility] DTAP Unknown Completed [facility] DTAP Unknown Completed [facility] DTAP Unknown Completed [facility] DTAP Unknown Completed [facility] HIB 4 Dose Schedule Unknown [facility] D[facility] Schedule [facility] 4 Dose Schedule Unknown [facility] Dose Schedule Unknown [facility]PAT[facility]IS A Unknown Completed [facility] Hep B, Adol or Pedi Unknown Completed [facility]ive rsity [facility]os[facility] Hep B, Adol or Pedi Unknown Completed [facility]ive rs[facility]os[facility] Hep B, Adol or Pedi Unknown Completed Unive [facility] HPV Unknown Completed [facility] HPV Unknown Completed [facility] HPV Unknown Completed [facility] Meningococcal Unknown Completed [facility] (groups A, C, Y and Branc h W-135) conjugate vaccine (MCV4P) MMR Unknown Completed [facility] MMR Unknown Completed [facility] Polio (IPV/OPV) Unknown Completed [facility] Polio (IPV/OPV) Unknown Completed [facility] Polio (IPV/OPV) Unknown Completed [facility] Polio (IPV/OPV) Unknown Completed [facility] Polio (IPV/OPV) Unknown Completed [facility] TDAP Unknown Completed [facility] Varicella Unknown Completed [facility] (varivax)([facility] [place] [facility] pox) Branch Varicella Unknown Completed [facility] (varivax)(chicken [place] [facility] pox) Branch Pneumococcal 7 Unknown Completed [facility] Conjugate, PCV7 [facility] (Prevnar7) Branch Influenza Virus [facility]5 [facility] IM 6+ MO Branch (FLUZONE/FLULAVAL/FL UARIX) TDAP Unknown Completed [facility] DTAP Unknown Completed [facility] DTAP Unknown Completed [facility] DTAP Unknown Completed [facility] DTAP Unknown Completed [facility] DTAP Unknown Completed [facility] HIB 4 Dose Schedule Unknown [facility] D[facility] Schedule [facility] 4 Dose Schedule Unknown [facility] 4 Dose Schedule Unknown Completed [facility] HEPATITIS A Unknown Completed [facility] Hep B, Adol or Pedi Unknown Completed Unive rsity of Dosage [facility] Hep B, Adol or Pedi Unknown Completed Unive rsity of Dosage [facility] Hep B, Adol or Pedi Unknown Completed Unive rsity of Dosage [facility] HPV Unknown Completed [facility] HPV Unknown Completed [facility] HPV Unknown Completed [facility] Meningococcal Unknown Completed [facility] (groups A, C, Y and Branc h W-135) conjugate vaccine (MCV4P) MMR Unknown Completed [facility] MMR Unknown Completed [facility] Polio (IPV/OPV) Unknown Completed [facility] Polio (IPV/OPV) Unknown Completed [facility] Polio (IPV/OPV) Unknown Completed [facility] Polio (IPV/OPV) Unknown Completed [facility] Polio (IPV/OPV) Unknown Completed [facility] TDAP Unknown Completed [facility] Varicella Unknown Completed [facility] (varivax)([place]icken [place] [facility] [place] pox) Branch Varicella Unknown Completed [facility] (varivax)(chicken [place] [facility] [place] pox) Branch Pneumococcal 7 Unknown Completed [facility] Conjugate, PCV7 [facility] ical (Prevnar7) Branch Influenza Virus Unknown Completed [facility] Vaccine Quad .5 mL [facility] 6+ MO Branch (FLUZONE/FLULAVAL/FL UARIX) TDAP Unknown Completed [facility] DTAP Unknown Completed [facility] DTAP Unknown Completed [facility] DTAP Unknown Completed [facility] DTAP Unknown Completed [facility] DTAP Unknown Completed [facility] HIB 4 Dose Schedule Unknown [facility] 4 Dose Schedule Unknown [facility] 4 Dose Schedule Unknown [facility] 4 Dose Schedule Unknown [facility] HEPATITIS A Unknown Completed [facility] Hep B, Adol or Pedi Unknown Completed Unive rsity of Dosage [facility] Hep B, Adol or Pedi Unknown Completed Unive rsity of Dosage [facility] Hep B, Adol or Pedi Unknown Completed Unive rs[facility] of Dosage [facility] HPV Unknown Completed [facility] HPV Unknown Completed [facility] HPV Unknown Completed [facility] Meningococcal Unknown Completed [facility]mond (groups A, C, Y and Branc h W-135) conjugate vaccine (MCV4P) MMR Unknown Completed [facility] MMR Unknown Completed [facility] Polio (IPV/OPV) Unknown Completed [facility] Polio (IPV/OPV) Unknown Completed [facility] Polio (IPV/OPV) Unknown Completed [facility] Polio (IPV/OPV) Unknown Completed [facility] Polio (IPV/OPV) Unknown Completed [facility] TDAP Unknown Completed [facility] Varicella Unknown Completed [facility] (varivax)([place]icken [place] [facility] [place] pox) Branch Varicella Unknown Completed [facility] (varivax)(chicken [place] [facility] [place] pox) Branch Pneumococcal 7 Unknown Completed [facility] Conjugate, PCV7 [facility] ical (Prevnar7) Branch Influenza Virus Unknown Completed Universit y Vaccine Quad .5 mL [facility] IM 6+ MO Branch (FLUZONE/FLULAVAL/FL UARIX) TDAP Unknown Completed [facility] DTAP Unknown Completed [facility] DTAP Unknown Completed [facility] DTAP Unknown Completed [facility] DTAP Unknown Completed [facility] DTAP Unknown Completed [facility] HIB 4 Dose Schedule Unknown Completed Unive [facility] HIB 4 Dose Schedule Unknown Completed Unive [facility] HIB 4 Dose Schedule Unknown [facility] 4 Dose Schedule Unknown Completed Unive [facility] HEPATITIS A Unknown Completed [facility] Hep B, Adol or Pedi Unknown Completed [facility]ive [facility] Hep B, Adol or Pedi Unknown Completed Unive rsity [facility] Hep B, Adol or Pedi Unknown Completed Unive rsity [facility] HPV Unknown Completed [facility] HPV Unknown Completed [facility] HPV Unknown Completed [facility] Meningococcal Unknown Completed [facility] (groups A, C, Y and Branc h W-135) conjugate vaccine (MCV4P) MMR Unknown Completed [facility] MMR Unknown Completed [facility] Polio (IPV/OPV) Unknown Completed Universit [facility] Polio (IPV/OPV) [facility] Polio (IPV/OPV) Unknown Completed [facility] Polio (IPV/OPV) Unknown Completed [facility] Polio (IPV/OPV) Unknown Completed Universit [facility] TDAP Unknown Completed [facility] Varicella Unknown Completed [facility] (varivax)(chicken [place] [facility] [place] pox) Branch Varicella Unknown Completed [facility] (varivax)(chicken [place] [facility] [place] pox) Branch Pneumococcal 7 Unknown Completed [facility] Conjugate, PCV7 [facility] ica (Prevnar7) Branch Influenza Virus Unknown Completed Universit y of Vaccine Quad .5 mL [facility] IM 6+ MO Branch (FLUZONE/FLULAVAL/FL UARIX) TDAP Unknown Completed [facility] Influenza Virus Unknown Completed Universit y of Vaccine Quad IM, [facility] dical Preserv and ABX Free Bran ch 6 MO-64 YRS (FLUCELVAX) Influenza Virus Unknown Completed Universit y of Vaccine Quad .5 mL [facility] IM 6+ MO Branch (FLUZONE/FLULAVAL/FL UARIX) TDAP Unknown Completed [facility] DTAP Unknown Completed [facility] DTAP Unknown Completed [facility] DTAP Unknown Completed [facility] DTAP Unknown Completed [facility] DTAP Unknown Completed [facility] HIB 4 Dose Schedule Unknown [facility] 4 Dose Schedule Unknown Com[facility]IB 4 Dose Schedule Unknown Completed Unive [facility] HIB 4 Dose Schedule Unknown [facility]PAT[facility]IS A Unknown Completed [facility] Hep B, Adol or Pedi Unknown Completed Unive rsity of Dosage [facility] Hep B, Adol or Pedi Unknown Completed Unive rsity of Dosage [facility] Hep B, Adol or Pedi Unknown Completed [facility]ive [facility] HPV Unknown Completed [facility] HPV Unknown Completed [facility] HPV Unknown Completed [facility] Meningococcal Unknown Completed [facility] (groups A, C, Y and Branc h W-135) conjugate vaccine (MCV4P) MMR Unknown Completed [facility] MMR Unknown Completed [facility] Polio (IPV/OPV) Unknown Completed [facility] Polio (IPV/OPV) Unknown Completed [facility] Polio (IPV/OPV) Unknown Completed [facility] Polio (IPV/OPV) Unknown Completed [facility] Polio (IPV/OPV) Unknown Completed [facility] TDAP Unknown Completed [facility] Varicella Unknown Completed [facility] (varivax)(chicken [place] [facility] [place] pox) Branch Varicella Unknown Completed [facility] (varivax)(chicken [place] M [place] pox) Branch Pneumococcal 7 Unknown Completed [facility] Conjugate, PCV7 [facility] ical (Prevnar7) Branch Influenza Virus Unknown Completed Universit y of Vaccine Quad .5 mL [facility] IM 6+ MO Branch (FLUZONE/FLULAVAL/FL UARIX) TDAP Unknown Completed [facility] Influenza Virus Unknown Completed Universit y of Vaccine Quad IM, [facility] dical Preserv and ABX Free Bran ch 6 MO-64 YRS (FLUCELVAX) Influenza Virus Unknown Completed Universit y of Vaccine Quad .5 mL [facility] 6+ MO Branch (FLUZONE/FLULAVAL/FL UARIX) TDAP Unknown Completed [facility] DTAP Unknown Completed [facility] DTAP Unknown Completed [facility] DTAP Unknown Completed [facility] DTAP Unknown Completed [facility] DTAP Unknown Completed [facility] HIB 4 Dose Schedule Unknown [facility] 4 Dose Schedule Unknown Com[facility]IB 4 Dose Schedule Unknown Completed Unive [facility] HIB 4 Dose Schedule Unknown Com[facility]PATITIS A Unknown Completed [facility] Hep B, Adol or Pedi Unknown Completed Unive rsity of Dosage [facility] Hep B, Adol or Pedi Unknown Completed Unive rsity of Dosage [facility] Hep B, Adol or Pedi Unknown Completed Unive rsity [facility] HPV Unknown Completed [facility] HPV Unknown Completed [facility] HPV Unknown Completed [facility] Meningococcal Unknown Completed [facility] [place] [facility] (groups A, C, Y and Branc h W-135) conjugate vaccine (MCV4P) MMR Unknown Completed [facility] MMR Unknown Completed [facility] Polio (IPV/OPV) [facility] Polio (IPV/OPV) [facility] Polio (IPV/OPV) Unknown Completed [facility] Polio (IPV/OPV) [facility] Polio (IPV/OPV) [facility] Varicella Unknown Completed [facility] (varivax)(chicken [place] [facility] [place] pox) Branch Varicella Unknown Completed [facility] (varivax)(chicken [place] [facility] [place] pox) Branch Pneumococcal 7 Unknown Completed [facility] Conjugate, PCV7 [facility] ica (Prevnar7) Branch Influenza Virus Unknown Completed Universit y of Vaccine Quad .5 mL [facility] IM 6+ MO Branch (FLUZONE/FLULAVAL/FL UARIX) TDAP Unknown Completed [facility] Influenza Virus Unknown Completed Universit y of Vaccine Quad IM, [facility] dical Preserv and ABX Free Bran ch 6 MO-64 YRS (FLUCELVAX) Influenza Virus Unknown Completed Universit y of Vaccine Quad .5 mL [facility] 6+ MO Branch (FLUZONE/FLULAVAL/FL UARIX) TDAP Unknown Completed [facility] DTAP Unknown Completed [facility] DTAP Unknown Completed [facility] DTAP Unknown Completed [facility] DTAP Unknown Completed [facility] DTAP Unknown Completed [facility] HIB 4 Dose Schedule Unknown [facility] 4 Dose Schedule Unknown Com[facility]IB 4 Dose Schedule Unknown [facility] 4 Dose Schedule Unknown [facility]PATITIS A Unknown Completed [facility] Hep B, Adol or Pedi Unknown Completed Unive rsity of Dosage [facility] Hep B, Adol or Pedi Unknown Completed Unive rsity of Dosage [facility] Hep B, Adol or Pedi Unknown Completed [facility]ive [facility] HPV Unknown Completed [facility] HPV Unknown Completed [facility] HPV Unknown Completed [facility] Meningococcal Unknown Completed [facility] (groups A, C, Y and Branc h W-135) conjugate vaccine (MCV4P) MMR Unknown Completed [facility] MMR Unknown Completed [facility] Polio (IPV/OPV) Unknown Completed [facility] Polio (IPV/OPV) Unknown Completed [facility] Polio (IPV/OPV) Unknown Completed [facility] Polio (IPV/OPV) Unknown Completed [facility] Polio (IPV/OPV) Unknown Completed [facility] TDAP Unknown Completed [facility] Varicella Unknown Completed [facility] (varivax)(chicken [place] [facility] [place] pox) Branch Varicella Unknown Completed [facility] (varivax)(chicken [place] M [place] pox) Branch Pneumococcal 7 Unknown Completed [facility] Conjugate, PCV7 [facility] ica (Prevnar7) Branch Influenza Virus Unknown Completed Universit y of Vaccine Quad .5 mL [facility] IM 6+ MO Branch (FLUZONE/FLULAVAL/FL UARIX) TDAP Unknown Completed [facility] Influenza Virus Unknown Completed Universit y of Vaccine Quad , [facility] dical Preserv and ABX Free Bran ch 6 MO-64 YRS (FLUCELVAX) Vital Signs Vital Name Observation Time Observation Value Comments Source Systolic blood 2023-07-06 13:39:00 111 mm[Hg] Univer [facility] Diastolic blood 2023-07-06 13:39:00 75 mm[facility]Hg] [facility] 2023-07-06 13:39:00 77 /min [facility] Respiratory rate 2023-07-06 13:39:00 18 /min Univ [facility] Body height 2023-07-06 13:39:00 160 cm [facility] Body weight 2023-07-06 13:39:00 68.947 kg [facility] BMI 2023-07-06 13:39:00 26.93 kg/m2 [facility] Systolic blood 2023-06-08 19:35:00 108 mm[facility]Hg[facility] 2023-06-08 19:35:00 69 mm[Hg] Unive rs[facility] pressure [facility] Heart rate 2023-06-08 19:35:00 91 /min [facility] Respiratory rate 2023-06-08 19:35:00 18 /min Univ [facility] Body height 2023-06-08 19:35:00 160 cm [facility] Body weight 2023-06-08 19:35:00 67.586 kg [facility] BMI 2023-06-08 19:35:00 26.39 kg/m2 [facility] Systolic blood 2023-05-17 16:40:00 112 mm[Hg] Univer sity of pressure [facility] Diastolic blood 2023-05-17 16:40:00 72 mm[Hg] Unive rsity of pressure [facility] Heart rate 2023-05-17 16:40:00 89 /min [facility] Respiratory rate 2023-05-17 16:40:00 18 /min Univ [facility] Body height 2023-05-17 16:40:00 160 cm [facility] Body weight 2023-05-17 16:40:00 65.318 kg [facility] BMI 2023-05-17 16:40:00 25.51 kg/m2 [facility] Systolic blood 2023-04-11 15:23:00 108 mm[Hg] Univer sity of pressure [facility] Diastolic blood 2023-04-11 15:23:00 71 mm[Hg] Unive rsity of pressure [facility] Heart rate 2023-04-11 15:23:00 77 /min [facility] Body temperature 2023-04-11 15:23:00 36.78 Eryn [facility] Respiratory rate 2023-04-11 15:23:00 18 /min Univ [facility] Body height 2023-04-11 15:23:00 160 cm [facility] Body weight 2023-04-11 15:23:00 63.866 kg [facility] BMI 2023-04-11 15:23:00 24.94 kg/m2 [facility] Oxygen saturation in 2023-04-11 15:23:00 98 /min [facility] of Arterial blood by [place] [facility] Pulse oximetry Branch Systolic blood 2023-03-21 16:08:00 97 mm[Hg] Univer sity of pressure [facility] Diastolic blood 2023-03-21 16:08:00 63 mm[Hg] Unive rsity of pressure [facility] Heart rate 2023-03-21 16:08:00 75 /min [facility] Body temperature 2023-03-21 16:08:00 36.67 Eryn [facility] Respiratory rate 2023-03-21 16:08:00 16 /min [facility] Body weight 2023-03-21 16:08:00 65.318 kg [facility] BMI 2023-03-21 16:08:00 26.34 kg/m2 [facility] Oxygen saturation in 2023-03-21 16:08:00 98 /min University of Arterial blood by [facility]mond Pulse oximetry Branch Systolic blood 2023-02-06 21:38:00 124 mm[Hg] Univer sity of pressure [facility] Diastolic blood 2023-02-06 21:38:00 73 mm[Hg] Unive rsity of pressure [facility] Heart rate 2023-02-06 21:38:00 88 /min [facility] Body temperature 2023-02-06 21:38:00 37.33 Eryn [facility] Respiratory rate 2023-02-06 21:38:00 17 /min Univ [facility] Body weight 2023-02-06 21:38:00 64.501 kg [facility] BMI 2023-02-06 21:38:00 26.01 kg/m2 [facility] Oxygen saturation in 2023-02-06 21:38:00 99 /min [facility] Arterial blood by [place] [facility] Pulse oximetry Branch Systolic blood 2022-05-19 19:39:00 114 mm[Hg] Univer sity of pressure [facility] Diastolic blood 2022-05-19 19:39:00 74 mm[Hg] Unive rsity of pressure [facility] Heart rate 2022-05-19 19:39:00 70 /min [facility] Respiratory rate 2022-05-19 19:39:00 20 /min [facility] Body height 2022-05-19 19:39:00 157.5 cm [facility] Body weight 2022-05-19 19:39:00 62.37 kg [facility] BMI 2022-05-19 19:39:00 25.15 kg/m2 [facility] Oxygen saturation in 2022-05-19 19:39:00 94 /min [facility] Arterial blood by [facility] Pulse oximetry Branch Procedures Procedure Date / Time Performing Clinician Source Performed HB ABO GROUPING 2023-07-06 16:53[facility] 1 HOUR POST 2023-07-06 16:06:00 Laron Mooney [facility] CBC WITH DIFF 2023-07-06 16:06:00 Laron Mooney [facility] FLU VACC ([id number]), 6 2023-07-06 13:41:16 Laron Mooney [facility] MO-64 YRS, .5ML, IM, Medical [facility] QUAD (FLUCELVAX) POCT URINALYSIS W/O 2023-07-06 00:00:00 Laron Mooney [facility] US OB TRANSVAGINAL 2023-06-08 20:12:19 Laron Mooney [facility] 2023-06-08 05:01:00 Doctor Unassigned, No [facility] ULTRASOUND [facility] POCT URINALYSIS W/O 2023-06-08 00:00:00 Laron Mooney [facility] TOTAL BETA HCG ASSAY 2023-05-24 15:16:00 Ebenezer Araujo [facility] POCT TEST 2023-05-17 00:00:00 Ebenezer Araujo [facility] DISCLOSURE AND CONSENT, 2023-04-11 05:01:00 Doctor Unassigned, N o [facility] MEDICAL AND SURGICAL Name Medical [facility] PROCEDURES ASSIGNMENT OF BENEFITS 2023-02-06 21:31:42 Doctor Unassigned, No [facility] Name [facility] Branch Encounters Start End Encounter Admission Attending Care Care Encounter Source Date/Time Date/Time Type Type Clinicians Facility Department ID 2021-12-31 Outpatient X [facility] [id number] Univers 00:18:56 ity [facility] 2021-07-30 Outpatient P LARON MOONEY [facility] [id number] Univers 15:52:47 ity [facility] 2021-07-30 Emergency [facility] [id number] Univers 14:32:[address] [facility] 2021-07-29 Emergency [facility] [id number] Univers 22:12:35 ity [facility] 2023-08-03 2023-08-03 Outpatient R ALEXEY MOONEYEN [facility] [id number] Univers 11:30:00 11:30:00 ity [facility] 2023-07-17 2023-07-17 Telephone VinicioAlexeyen [facility] [id number] Univers 00:00:00 00:00:00 Cam YOLANDA [id number] i [place] [id number] Fl singh [facility] [address] BU[address] 2023-07-06 2023-07-06 [employer] [facility], [facility] [id number] Univers 09:30:00 12:22:20 Visit Laron Mooney [facility] [id number] ity of [place] 4.2.7.2.686 Danny as YARIEL?BLEA [id number] Fl dical EY [address] MEDICAL OFFICE BUILDING 2023-07-06 2023-07-06 Outpatient R VINICIOALEXEYEN [facility] [id number] Univers 09:30:00 09:30:[address] [facility] 2023-07-06 2023-07-06 Routine Vinicio Laron DEJOSEPH NOGUERA [id number] Univers 08:00:00 09:13:22 Pietro ROSALES [id number] i ty of [id number] [id number] [address] 2023-06-27 2023-06-27 Telephone Larno Mooney NOGUER[facility] [id number] Univers 00:00:00 00:00:00 Pietro ROSALES [id number] it [id number] [id number] [address] 2023-06-15 2023-06-15 Telephone Laron Mooney [facility] [id number] Univers 00:00:00 00:00:00 Pietro ROSALES [id number] it [id number] [id number] [address] 2023-06-13 2023-06-13 Telephone Laron Mooney [facility] [id number] Univers 00:00:00 00:00:00 Pietro ROSALES [id number] [place] [facility] [id number] [address] 2023-06-12 2023-06-12 [facility] [id number] Univers 00:00:00 00:00:00 Management Pietro GUERRERO 350.1.13.10 ity [facility] [place] [id number] Fl dic[address] 2023-06-11 2023-06-11 Outpatient [facility] [id number] Jesus 08:36:02 08:36:02 [id number] F Octavio 2023-06-11 2023-06-11 Telephone Laron Mooney [facility] 1.2.840.114 [id number] Univers 00:00:00 00:00:00 Pietro ROSALES 350.1.13.10 it y [place] [id number] [address] 2023-06-08 2023-06-08 Outpatient R LARON MOONEY [facility] [id number] Univers 14:30:00 14:57:[address] [facility] 2023-06-08 2023-06-08 Initial Laron Mooney [facility] 1.2.840.114 10 [id number] Univers 14:30:00 14:57:46 Cam ABIMAEL 350.1.13.10 i ty of [place] [id number] [address] 2023-06-08 2023-06-08 Orders Doctor LESLEE 1.2.840.114 [id number] Univers 00:00:00 00:00:00 Only Unassigned, DEIRDRE 350.1.13.10 ity of [place] [facility] 4.2.7.2.686 Danny as [id number] [address] 2023-05-24 2023-05-24 Outpatient R EBENEZER ARAJUO [facility] [id number] Univers 10:30:00 14:26:49 EBENEZER ARAUJO ity [facility] 2023-05-24 2023-05-24 [employer] Lab, Ang - Db [facility] 1.2.840.1 14 [id number] Univers 10:30:00 14:26:49 Visit Ebenezer Araujo [facility] 350.1.13.1 0 ity of [place] 4.2.7.2.686 Danny as YARIEL?BLEA [id number] [address] MEDICAL OFFICE BUILDING 2023-05-23 2023-05-23 Outpatient [facility] [id number] Jesus 09:31:31 09:31:31 [id number] F Octavio 2023-05-18 2023-05-18 Telephone MARCIO Araujo NOKOMIS 1.2.840.11 4 [id number] Univers 00:00:00 00:00:00 Ebenezer ROSALES 350.1.13.10 it [place] [id number] [address] 2023-05-17 2023-05-17 [employer] Lab, Ang - Db [facility] 1.2.840.1 14 [id number] Univers 12:15:00 12:30:00 Visit [facility] 350.1.13.1 0 ity of [place] 4.2.7.2.686 Danny as YARIEL?BLEA [id number] Fl dical [facility] [address] MEDICAL OFFICE BUILDING 2023-05-17 2023-05-17 Outpatient R LUTHERKAISER EBENEZER [facility] B [id number] Univers 11:30:00 11:53:18 GAYLE EBENEZER itluana [facility] 2023-05-17 2023-05-17 Office Gayle [facility] 1.2.840.114 [id number] Univers 11:30:00 11:53:18 Visit Ebenezer ROSALES 350.1.13.10 it y of [place] [id number] [address] 2023-05-14 2023-05-14 Outpatient R EBENEZER ARAUJO [facility] B [id number] Univers 13:45:00 13:45:00 [facility] 2023-04-11 2023-04-11 Outpatient R LARON MOONEY [facility] [id number] Univers 09:00:00 10:33:[address] [facility] 2023-04-11 2023-04-11 Office Laron Mooney [facility] 1.2.881.030 [id number] Univers 09:00:00 10:33:03 Visit Pietro GUERRERO 350.1.13.10 i ty [facility] [place] [id number] Fl singh [address] 2023-04-11 2023-04-11 Orders Doctor LESLEE 1.2.840.114 [id number] Univers 00:00:00 00:00:00 Only Unassigned, DEIRDRE 350.1.13.10 ity of [place] [facility] 4.2.7.2.686 Danny as [phone] [address] 2023-03-21 2023-03-21 Outpatient R ARABELLA [facility] [id number] Univers 11:00:00 11:25:56 KENYA gill [facility] 2023-03-21 2023-03-21 Urgent Kenya Bell [facility] 1.2.840.11 4 [id number] Univers 11:00:00 11:25:56 Care Unknown, Attending HEALTH 350.1.13.10 ity of [place] 4.2.7.2.686 Danny as YARIEL?BLEA [id number] [address] OFFICE [facility] 2023-02-06 2023-02-06 Urgent Yvan Goode [facility] 1.2.840.114 [id number] Univers 16:40:00 17:00:00 Care Unknown, Attending HEALTH 350.1.13.10 ity of [place] 4.2.7.2.686 Danny as YARIEL?BLEA [id number] [address] OFFICE [facility] 2023-02-06 2023-02-06 Outpatient R DAIJA [facility] [id number] Univers 16:40:00 16:40:00 RANLAUREN ity [facility] 2023-02-06 2023-02-06 Orders Doctor LESLEE 1..840.114 [id number] Univers 00:00:00 00:00:00 Only Unassigned, DEIRDRE 350.1.13.10 ity of [place] [facility] 4.2.7.2.686 Danny as [id number] [address] 2022-09-12 2022-09-12 Outpatient R LARON MOONEY [facility] [id number] Univers 13:30:00 13:30:[address] [facility] 2022-06-14 2022-06-14 Telephone [facility] 1.2.459.424 [id number] Univers 00:00:00 00:00:00 Lisa GUERRERO 350.1.13.10 ity of [place] [id number] [address] 2022-06-01 2022-06-01 Telephone Betzy [facility] 1.2.223.837 [id number] Univers 00:00:00 00:00:00 Lisa GUERRERO 350.1.13.10 ity [facility] 4.2.[place] [id number] [address] 2022-05-26 2022-05-26 Telephone [facility] 1.2.300.194 [id number] [id number] Univers 00:00:00 00:00:00 Sendil Oscar GUERRERO 350.1.13.10 ity [facility] [place] [id number] [facility] 085 [facility] 2022-05-25 2022-05-25 Outpatient R BETZY [facility] [id number] Univers 08:30:00 23:59:00 SENDIL ity [facility] 2022-05-25 2022-05-25 [facility] [id number] Univers 08:30:00 08:30:00 SENDIL ity [facility] 2022-05-19 2022-05-19 [facility] [id number] Univers 13:00:00 23:59:00 SENDIL ity [facility] 2022-05-19 2022-05-19 Office [facility] 1.2.840.114 [id number] Univers 15:00:00 15:30:00 Visit Lisa GUERRERO 350.1.13.10 ity [facility] [place] [id number] [address] 2022-05-19 2022-05-19 Outpatient R BETZY [facility] [id number] Univers 15:00:00 15:00:00 SENDIL ity [facility] 2022-05-16 2022-05-16 Orders Doctor CAMILO 1.2.840.114 [id number] Univers 00:00:00 00:00:00 Only Unassigned, DEIRDRE 350.1.13.10 ity of [place] [facility] 4.2.7.2.686 Danny as [id number] [address] 2022-05-15 2022-05-15 [facility] [id number] Univers 13:20:00 13:33:23 NEERU ity [facility] 2022-05-15 2022-05-15 Urgent [facility] 1.2.840.114 [id number] Univers 13:20:00 13:33:23 Care [facility] 350.1.13.10 it y of [place] 4.2.7.2.686 Danny as YARIEL?BLEA [id number] Fl dical KNEY [address] MEDICAL OFFICE [facility] 2022-05-15 2022-05-15 Telephone Betzy [facility] 1.2.944.433 [id number] [id number] Univers 00:00:00 00:00:00 Lisa GUERRERO 350.1.13.10 ity of [place] [id number] Fl dicri NAL 059 [facility] 2022-05-14 2022-05-14 Emergency X REPLACED BY [facility] ERT [id number] Univers 15:07:00 17:38:[address] [facility] 2022-05-14 2022-05-14 Emergency [facility] 1.2.687.992 [id number] Univers 15:07:00 17:38:00 Orotoniel S YOLANDA 350.1.13.10 ity of [place]2.7.2.[place] [id number] [facility] [address] 2022-05-14 2022-05-14 Case LESLEE Bo 1.2.840.114 [id number] Univers 00:00:00 00:00:00 Management Lisa GILMORE 350.1.13.10 ity of [facility] 4.2.7.2.686 Danny as [id number] [facility] [address] 2022-03-29 2022-03-29 Telephone Laron Mooney [facility] 1.2.840.114 [id number] Univers 00:00:00 00:00:00 Pietro GUERRERO 350.1.13.10 i ty of [place] [id number] Fl dical NAL 134 [facility] 2022-03-29 2022-03-29 Orders Doctor CAMILO 1.2.840.114 [id number] Univers 00:00:00 00:00:00 Only Unassigned, DEIRDRE 350.1.13.10 ity of [place] HOSPITAL 4.2.7.2.686 Danny as [id number] [address] 2022-03-07 2022-03-07 Office Vinicio Laron [facility] 1.2.264.090 [id number] Univers 13:00:00 13:50:06 Visit Cam [place] 350.1.13.10 i ty of [place]2.7.2.[place] [id number] Fl dical NAL [address] [place] [address] 2022-03-07 2022-03-07 Outpatient R VINICIO [facility] [id number] Univers 13:00:00 13:50:[address] [facility] 2022-03-07 2022-03-07 Outpatient R VINICIO [facility] [id number] Univers 13:00:00 13:00:[address] [facility] 2022-03-07 2022-03-07 Orders Doctor CAMILO 1.2.840.114 [id number] Univers 00:00:00 00:00:00 Only Unassigned, DEIRDRE 350.1.13.10 ity of [place] [facility] 4.2.7.2.686 Danny as [id number] [address] 2022-02-13 2022-02-13 Outpatient R VINICIO [facility] [id number] Univers 10:45:00 13:26:[address] [facility] 2022-02-13 2022-02-13 Routine Vinicio [facility] 1.2.687.907 [id number] Univers 10:45:00 13:26:51 Cam [place] 350.1.13.10 ity of Visit [place]2.[place] [id number] Fl dic[address] 2022-01-30 2022-01-31 Inpatient P VINICIO [facility] DAGO [id number] Univers 05:46:00 17:00:[address] [facility] 2022-01-30 2022-01-31 Hospital Vinicio [facility] 1.2.840.114 911 [id number] Univers 05:46:00 17:00:00 Encounter Pietro GUERRERO 350.1.13.10 ity [facility] [place].2.[place] [id number] [facility] [address] 2022-01-30 2022-01-30 Surgery Laron Mooney [facility] 1.2.554.608 0622 [id number] Univers 08:00:00 09:29:00 Cam YOLANDA 350.1.13.10 i ty of [place].2.[place] [id number] [facility] [address] 2022-01-28 2022-01-28 [employer] Emmanuel, Dilan Lab Main [facility] 1.2.8 40.114 [id number] Univers 11:15:00 11:30:00 Visit Alexey Mooneydena GUERRERO 350.1.13.10 ity of [place].7.2.[place] [id number] Fl dical [facility] 353 [facility] 2022-01-28 2022-01-28 Outpatient R LARON MOONEY [facility] [id number] Univers 11:15:00 11:15:[address] [facility] 2022-01-28 2022-01-28 Laboratory Only, Adc Test [place] 1.2.840. 114 [id number] Univers 11:00:00 11:15:00 Only Laron Mooney Pietro GUERRERO 350.1.13.10 ity of [place].2.7.2.[place] [id number] [facility] [address] 2022-01-28 2022-01-28 Orders Doctor LESLEE 1.2.840.114 [id number] Univers 00:00:00 00:00:00 Only Unassigned, DEIRDRE 350.1.13.10 ity of [place] HOSPITAL 4.2.7.2.686 Danny as [id number] [facility] [address] 2022-01-25 2022-01-25 Routine Laron Mooney Pietro [facility] 1.2.840.114 [id number] Univers 15:30:00 15:45:00 Anny Ybarra 350.1.13.10 ity of Visit [place] [id number] [address] 2022-01-25 2022-01-25 Outpatient R AMADA [facility] [id number] Univers 15:30:00 15:30:00 ANNY ity [facility] 2022-01-18 2022-01-18 Outpatient R VINICIO [facility] [id number] Univers 13:00:00 13:36:58 ity [facility] 2022-01-18 2022-01-18 [facility] 1.2.690.116 [id number] [id number] Univers 13:00:00 13:36:58 Cam [place] 350.1.13.10 ity of Visit [place].2.[place] [id number] [address] 2022-01-18 2022-01-18 Outpatient R MOONEY [facility] [id number] Univers 13:00:00 13:00:[address] [facility] 2022-01-11 2022-01-11 Outpatient R VINICIO [facility] [id number] Univers 14:00:00 14:54:05 ity [facility] 2022-01-11 2022-01-11 Routine Vinicio [facility] 1.2.922.803 [id number] Univers 14:00:00 14:54:05 Cam [place] 350.1.13.10 ity of Visit [place].2.[place] [id number] [address] 2022-01-11 2022-01-11 Orders Doctor LESLEE 1.2.840.114 [id number] Univers 00:00:00 00:00:00 Only Unassigned, DEIRDRE 350.1.13.10 ity of [place] [facility] 4.2.7.2.686 Danny as [id number] [address] 2022-01-02 2022-01-02 Outpatient Alycia YBARRA [facility] [id number] Univers 16:15:00 16:47:[address] [facility] 2022-01-022022-01-02 Routine Laron Mooney [facility] 1.2.840.114 [id number] Univers 16:15:00 16:47:19 Anny Ybarra 350.1.13.10 ity of [place]2.[place] [id number] [address] 2021-12-30 2021-12-30 Outpatient X RUTH [facility] DAGO [id number] Univers 18:12:00 23:05:00 JENNIFER gill [facility] 2021-12-30 2021-12-30 Emergency VeyoJaswant lou [facility] 1.2. 840.114 [id number] Univers 18:12:00 23:05:00 Jennifer Weldon 350.1.13.10 ity of [place].2.[place] [id number] [facility] [address] 2021-12-30 2021-12-30 Telephone Laron Mooney [facility] 1.2.840.114 [id number] Univers 00:00:00 00:00:00 Pietro GUERRERO 350.1.13.10 i ty of [place].2.[place] [id number] [address] 2021-12-30 2021-12-30 Orders Doctor LESLEE 1.2.840.114 [id number] Univers 00:00:00 00:00:00 Only Unassigned, DEIRDRE 350.1.13.10 ity of [place] [facility] 4.2.7.2.686 Danny as [id number] [facility] [address] 2021-12-26 2021-12-26 Outpatient R AMADA [facility] [id number] Univers 10:30:00 10:30:00 ANNY gill [facility] 2021-12-12 2021-12-12 Outpatient R LARON MOONEY [facility] [id number] Univers 13:15:00 15:26:[address] [facility] 2021-12-12 2021-12-12 Routine Laron Mooney [facility] 1.2.671.251 [id number] [id number] Univers 13:15:00 15:26:50 Cam [place] 350.1.13.10 ity of Visit [place]2.7.2.[place] [id number] Fl dical NAL [address] [place] [address] 2021-12-12 2021-12-12 Routine Vinicio Laron [facility] 1.2.205.382 [id number] Univers 13:15:00 15:26:50 Cam [place] 350.1.13.10 ity of Visit [place] 4[place]2.7.2.[place] [id number] Fl dical NAL [address] [place] [address] 2021-12-12 2021-12-12 Telephone Vinicio Laron [facility] 1.2.840.114 [id number] Univers 00:00:00 00:00:00 Cam [place] 350.1.13.10 i ty of [place]2.7.2.[place] [id number] Fl dical NAL [address] [place] [address] 2021-12-05 2021-12-05 Case [facility] 1.2.548.928 [id number] 9725 Univers 00:00:00 00:00:00 Management Anny [place] 350.1.13.10 ity of [place].7.2.[place] [id number] Fl dical NAL [address] [place] [address] 2021-11-30 2021-11-30 Outpatient R AMADA [facility] [id number] Univers 14:45:00 14:57:[address] [facility] 2021-11-30 2021-11-30 Routine [facility] 1.2.505.982 [id number] [id number] Univers 14:45:00 14:57:17 Anny [place] 350.1.13.10 ity of Visit [place]2.7.2.[place] [id number] Fl dical NAL [address] [place] [address] 2021-11-13 2021-11-13 Case Laron Mooney [facility] 1.2.780.113 6467 [id number] Univers 00:00:00 00:00:00 Management Cam [place] 350.1.13.10 ity of [place].2.[place] 199.9800446 Fl dical NAL 134 [facility] 2021-11-09 2021-11-09 [employer] 2, Adc Lab [facility] 1.2.840.114 [id number] Univers 14:00:00 14:00:00 Visit Laron [facility]oney [facility] 350.1.13.10 ity of [place] 4.2.7.2.[place] [id number] Fl dical NAL 353 [facility] 2021-11-09 2021-11-09 Outpatient R VINICIO [facility] [id number] Univers 13:00:00 13:53:[address] [facility] 2021-11-09 2021-11-09 Routine Vinicio [facility] 1.2.372.164 [id number] [id number] Univers 13:00:00 13:53:41 Pietro GUERRERO 350.1.13.10 ity of Visit [place]2.[place] [id number] Fl dical [facility] 134 [facility] 2021-10-24 2021-10-24 [employer] Ultrasound, [facility] 1.2 .840.114 [id number] Univers 11:15:00 12:00:00 Visit Jose Infante PLAN[place] 350.1.13.[address] [facility] 4.2.7.2.686 Danny as MATERNAL [id number] Med ical & CHILD [address] [place] [address] 2021-10-24 2021-10-24 Outpatient P JOSE INFANTE [facility] [id number] Univers 11:15:00 11:15:00 JSOE INFANTE ity of [facility] 2021-10-14 2021-10-14 Outpatient R VINICIO LARON [facility] [id number] Univers 11:30:00 12:37:[address] [facility] 2021-10-14 2021-10-14 Routine Vinicio [facility] NOGUERA 1.2.840.114 [id number] Univers 11:30:00 12:37:28 Pietro ROSALES 350.1.13.10 i ty of [place] [id number] [address] 2021-09-21 2021-09-21 Patient Doctor [facility] 1.2.840.114 [id number] Univers 00:00:00 00:00:00 Secure Msg UnassignedYOLANDA 350.1.13.10 ity of [place]2.7.2.[place] [id number] Fl dic[address] 2021-09-19 2021-09-19 Case Amada [facility] 1.2.818.513 0640 [id number] Univers 00:00:00 00:00:00 Management Anny YOLANDA 350.1.13.10 ity of [place]2.[place] [id number] [address] 2021-09-16 2021-09-16 Outpatient R LARON MOONEY [facility] [id number] Univers 11:15:00 11:43:[address] [facility] 2021-09-16 2021-09-16 Routine Vinicio [facility] NOGUERA 1.2.840.114 [id number] Univers 11:15:00 11:43:31 Cam ABIMAEL 350.1.13.10 i ty of [place].2.[place] [id number] [address] 2021-09-16 2021-09-16 Outpatient R LARON MOONEY [facility] [id number] Univers 11:15:00 11:15:00 ity [facility] 2021-09-15 2021-09-15 Outpatient P [facility] [id number] Univers 12:00:00 12:00:00 ity [facility] 2021-09-12 2021-09-12 [employer] Ultrasound, Rosas [facility] 1.2 .840.114 [id number] Univers 12:23:27 13:23:27 Visit Herbert Colby PLAN[place] 350.1. 13.[address] [facility] 4.2.7.2.686 Danny as MATERNAL [id number] Med ical & CHILD [address] [place] [address] 2021-09-12 2021-09-12 Outpatient P [facility] [id number] Univers 12:30:00 12:30:00 KOUTROUVELI it y of S GODINEZ [facility] 2021-09-12 2021-09-12 Outpatient P [facility] [id number] Univers 12:00:00 12:00:00 ity [facility] 2021-09-12 2021-09-12 Outpatient P [facility] [id number] Univers 08:00:00 08:00:00 KOUTROUVELI it y of S GODINEZ [facility] 2021-09-07 2021-09-07 Telephone Laron Mooney [facility] 1.2.840.114 [id number] Univers 00:00:00 00:00:00 Pietro GUERRERO 350.1.13.10 i ty of [place] 524.5289342 Fl dical [facility] 134 [facility] 2021-08-24 2021-08-24 [employer] 2, Adc Lab [facility] 1.2.840.114 [id number] Univers 13:07:21 15:23:43 Visit Laron Mooney 350.1.13.10 ity of [place]2.[place] [facility].6905581 [facility] 353 [facility] 2021-08-24 2021-08-24 Outpatient R [facility] [id number] Univers 13:15:00 13:15:00 ity [facility] 2021-08-24 2021-08-24 Outpatient R LARON MOONEY [facility] [id number] Univers 13:15:00 13:15:00 ity [facility] 2021-08-19 2021-08-19 Routine Laron Mooney [facility] 1.2.840.114 [id number] Univers 11:21:36 12:04:28 Pietro ROSALES 350.1.13.10 i ty of Visit [place].2.[place] [id number] [address] 2021-08-19 2021-08-19 Outpatient R LARON MOONEY [facility] [id number] Univers 10:15:00 12:04:[address] [facility] 2021-08-02 2021-08-02 Telephone Laron Mooney [facility] 1.2.840.114 [id number] Univers 00:00:00 00:00:00 Pietro GUERRERO 350.1.13.10 i ty of [place] 178.0602457 Fl dic[address] 2021-07-27 2021-07-27 Case [facility] 1.2.233.837 [id number] Univers 00:00:00 00:00:00 Management Anny Guerrero [id number] [id number] [phone] [address] 2021-07-26 2021-07-26 [facility] 1.2.840.114 [id number] Univers 11:20:43 11:54:36 Anny Rosales 350.1.13.10 i ty of [place] [facility] [place] [phone] [address] 2021-07-26 2021-07-26 Outpatient R AMADA [facility] [id number] Univers 11:15:00 11:15:00 ANNY gill [facility] 2021-07-25 2021-07-25 Outpatient R AMADA [facility] [id number] Univers 11:00:00 11:00:[address] [facility] 2021-07-20 2021-07-20 Outpatient R [facility] [id number] Univers 11:00:00 11:00:00 [facility] 2021-07-20 2021-07-20 [employer] 2, Adc Lab [facility] 1.2.840.114 [id number] Univers 09:33:12 09:38:55 Visit Laron Mooney Pietro Guerrero 350.1.13.10 [id number] [phone] Fl dical nal [address] [facility] 2021-07-20 2021-07-20 Outpatient R LARON MOONEY [facility] [id number] Univers 09:30:00 09:30:[address] [facility] 2021-07-20 2021-07-20 Orders Doctor LESLEE 1.2.840.114 [id number] Univers 00:00:00 00:00:00 Only Unassigned, DEIRDRE 350.1.13.10 ity of [place] [facility] 4.2.7.2.686 Danny as [phone] [address] 2021-07-12 2021-07-12 Telephone Laron Mooney [facility] 1.2.840.114 [id number] Univers 00:00:00 00:00:00 Cam Yolanda 350.1.13.10 i [place] [phone] Fl dical nal 134 [facility] 2021-06-30 2021-06-30 Case Amada DEJOSEPH 1.2.984.251 [id number] Univers 00:00:00 00:00:00 Management Anny Guerrero [id number] [id number] [phone] Fl dical nal 134 [facility] 2021-06-27 2021-06-27 Initial Laron Mooney [facility] 1.2.685.835 [id number] Univers 12:56:44 14:08:53 Pietro Guerrero 350.1.13.10 ity of [place] [phone] Fl dical nal 134 [facility] 2021-06-27 2021-06-27 Outpatient R MOONEYLARON [facility] [id number] Univers 14:00:00 14:00:[address] [facility] 2021-06-27 2021-06-27 Orders Doctor CAMILO 1.2.840.114 [id number] Univers 00:00:00 00:00:00 Only Unassigned, DEIRDRE [id number] ity of [place] [facility] 4.2.7.2.686 Danny as [phone] [facility] [address] 2021-06-17 2021-06-17 Telephone Chepe Mcmillan 1.2.840.114 [id number] Univers 00:00:00 00:00:00 , Lisa Vance 350.1.13.10 [place] [phone] [facility] [address] 2021-06-13 2021-06-13 Outpatient R [facility] [id number] Univers 10:00:00 10:00:00 ity [facility] 2021-05-26 2021-05-26 Outpatient R [facility] [id number] Univers 08:00:00 08:00:00 ity [facility] 2020-11-25 2020-11-25 Outpatient R [facility] [id number] Univers 10:30:00 10:30:00 ity [facility] 2020-11-23 2020-11-23 Routine Mooney [facility] 1.2.083.504 [id number] Univers 14:01:45 14:34:40 Cam [facility] 350.1.13.10 it[place] [phone] Fl dical [address] 2020-11-23 2020-11-23 Routine Mooney [facility] 1.2.215.186 [id number] 14:01:45 14:34:40 Cam [facility] 350.1.13.10 Visit [place] 4.2.7.2.686 Professio [phone] [address] 2020-11-23 2020-11-23 Outpatient R [facility] [id number] Univers 14:15:00 14:15:00 ity [facility] 2020-11-11 2020-11-11 Outpatient R [facility] [id number] Univers 14:00:00 14:00:00 ity [facility] 2020-11-11 2020-11-11 Outpatient R [facility] [id number] Univers 11:15:00 11:15:[address] [facility] 2020-11-11 2020-11-11 Nurse Nurse, [facility] Women's Health [facility] 1.2.840.114 [id number] [facility] 10:47:22 11:08:04 Visit Laron Mooney 350.1.13.10 it[place] of [place] [phone] Fl dical [address] 2020-11-11 2020-11-11 Nurse Nurse, [facility] 1.2.840.114 [id number] 10:47:22 11:08:04 Visit Women'alyssa Guerrero 350.1.13.10 [facility] [place] 4.2.7.2.686 Professio [phone] [address] 2020-10-28 2020-10-29 [facility] [place]on [place]oney [place] 1.2.840.114 [id number] [facility] 05:30:00 22:30:00 Encounter Pietro [place] 350.1.13.10 ity of [place] [phone] [facility] [address] 2020-10-28 2020-10-29 [facility] Laron Mooney [facility] 1.2.840.114 [id number] 05:30:00 22:30:00 Encounter Cam [facility] 350.1.13.10 [place] 4.2.7.2.686 [place] [phone] 083 2020-10-27 2020-10-27 Laboratory Only, [facility] 1.2.840.114 [id number] 10:13:02 10:28:02 Only Test [facility] 350.1.13.10 [place] 4.2.7.2.686 [place] [phone] 353 2020-10-27 2020-10-27 Laboratory Only, [facility] Test [facility] 1.2.840. 114 [id number] [facility] 10:13:02 10:28:02 Only Donell Saavedra [facility] 350.1.13.10 ity of [place] [phone] [facility] [address] 2020-10-27 2020-10-27 Outpatient R [facility] [id number] Univers 10:00:00 10:00:00 ity [facility] 2020-10-21 2020-10-21 Routine Laron Mooney 1.2.152.781 [id number] 14:52:05 16:19:18 Cam [facility] 350.1.13.10 Visit [place] 4.2.7.2.686 Professio [phone] [address] 2020-10-21 2020-10-21 Routine Laron Mooney DEJOSEPH 1.2.860.162 [id number] Univers 14:52:05 16:19:18 Cam [facility] 350.1.13.10 ity of [place] [phone] Fl dical [address] 2020-10-21 2020-10-21 Outpatient R LARON MOONEY [facility] [id number] Univers 14:45:00 14:45:[address] [facility] 2020-10-21 2020-10-21 Orders Doctor LESLEE 1.2.840.114 [id number] 00:00:00 00:00:00 Only Unassigned, DEIRDRE 350.1.13.10 [place] [facility] [id number] [facility] 2020-10-21 2020-10-21 Orders Doctor LESLEE 1.2.840.114 [id number] Univers 00:00:00 00:00:00 Only Unassigned, DEIRDRE 350.1.13.10 ity of [place] [facility] 4.2.7.2.686 Danny as [phone] [address] 2020-10-16 2020-10-16 Patient Laron Mooney DEJOSEPH 1.2.511.699 [id number] Univers 00:00:00 00:00:00 Secure Msg Cam [place] 350.1.13.10 ity of [place] [phone] Fl dical [address] 2020-10-15 2020-10-15 Patient Laron Mooney DEJOSEPH 1.2.646.062 [id number] Univers 00:00:00 00:00:00 Secure Msg Cam [place] 350.1.13.10 ity of [place] [phone] Fl dical [address] 2020-10-14 2020-10-14 Routine Laron Mooney [facility] 1.2.677.290 [id number] 15:47:58 16:38:20 Cam [facility] 350.1.13.10 Visit [place] 4.2.7.2.686 Professio [phone] [address] 2020-10-14 2020-10-14 Routine Laron Mooney [facility] 1.2.727.828 [id number] Univers 15:47:58 16:38:20 Cam [facility] 350.1.13.10 ity of [place] [phone] Fl dic[address] 2020-10-14 2020-10-14 [employer] 2, Adc Lab [facility] 1.2.840.114 [id number] 15:31:53 15:46:53 Visit [facility] 350.1.13.10 [place] 4.2.7.2.686 Professio [phone] [address] 2020-10-14 2020-10-14 [employer] 2, Adc Lab [facility] 1.2.840.114 [id number] Univers 15:31:53 15:46:53 Visit Laron Mooney [facility] 350.1.13.10 ity of [place] [phone] Fl dic[address] 2020-10-14 2020-10-14 Outpatient R ALEXEY MOONEYEN [facility] [id number] Univers 15:45:00 15:45:[address] [facility] 2020-10-14 2020-10-14 Case Laron Mooney [facility] 1.2.133.481 [id number] 00:00:00 00:00:00 Management Cam [facility] 350.1.13.10 [place] 4.2.7.2.686 Professio [phone] [address] 2020-10-14 2020-10-14 Case Laron Mooney [facility] 1.2.768.635 [id number] Univers 00:00:00 00:00:00 Management Cam [facility] 350.1.13.10 it[place] of [place] [phone] Fl dic[address] 2020-10-12 2020-10-12 Patient Laron Mooney [facility] 1.2.513.400 [id number] Univers 00:00:00 00:00:00 Secure Msg Cam [place] 350.1.13.10 ity of [place] [phone] Fl dic[address] 2020-10-11 2020-10-11 Telephone Laron Mooney [facility] 1.2.840.114 [id number] 00:00:00 00:00:00 Cam [facility] 350.1.13.10 [place] 4.2.7.2.686 Professio [phone] [address] 2020-10-11 2020-10-11 Telephone Laron Mooney [facility] 1.2.840.114 [id number] Univers 00:00:00 00:00:00 Cam [facility] 350.1.13.10 i ty of [place] [phone] Fl dic[address] 2020-10-11 2020-10-11 Patient Laron Mooney [facility] 1.2.741.361 [id number] Univers 00:00:00 00:00:00 Secure Msg Cam [place] 350.1.13.10 ity of [place] [phone] Fl dic[address] 2020-10-07 2020-10-07 Routine Laron Mooney [facility] 1.2.180.081 [id number] 08:18:49 09:18:03 Cam [facility] 350.1.13.10 Visit [place] 4.2.7.2.686 Professio [phone] [address] 2020-10-07 2020-10-07 Routine Laron Mooney [facility] 1.2.875.562 [id number] [id number] Univers 08:18:49 09:18:03 Cam [facility] 350.1.13.10 ity of [place] [phone] Fl dical [address] 2020-10-07 2020-10-07 Outpatient R VINICIO LARON [facility] [id number] Univers 08:15:00 08:15:[address] [facility] 2020-10-06 2020-10-06 Outpatient R AMADA [facility] [id number] Univers 09:45:00 09:45:00 ANNY ity [facility] 2020-10-06 2020-10-06 Telephone Laron Mooney [facility] 1.2.840.114 [id number] 00:00:00 00:00:00 Cam [facility] 350.1.13.10 [place] 4.2.7.2.686 Professio [phone] [address] 2020-10-06 2020-10-06 Telephone Laron Mooney [facility] 1.2.840.114 [id number] Univers 00:00:00 00:00:00 Cam [facility] 350.1.13.10 i ty of [place] [phone] Fl dical [address] 2020-10-04 2020-10-04 Patient Laron Mooney [facility] 1.2.027.242 [id number] Univers 00:00:00 00:00:00 Secure Msg Cam [place] 350.1.13.10 [facility] [place]2.[place] [phone] Fl dic[address] 2020-10-02 2020-10-02 Emergency Edgardo Recinos [facility] 1.2.840. 114 [id number] 14:07:00 19:02:00 Laron Mooney Cam [facility] 350.1.13.10 [place] 4.2.7.2.686 [place] [phone] [facility] 2020-10-02 2020-10-02 Emergency Edgardo Recinos [facility] 1.2.840. 114 [id number] Univers 14:07:00 19:02:00 Laron Mooney 350.1.13.10 ity of [place]2.[place] [phone] [facility] [address] [place] [address] 2020-09-22 2020-09-22 Routine Laron Mooney [facility] 1.2.613.933 [id number] 15:22:19 15:43:16 Pietro Guerrero 350.1.13.10 Visit [place] 4.2.7.2.686 Professio [phone] [address] 2020-09-22 2020-09-22 Routine Laron Mooney [facility] 1.2.313.839 [id number] Univers 15:22:19 15:43:16 Pietro Guerrero 350.1.13.10 ity of Visit [place] 4.2.7.2.686 [facility] Professio [phone] Fl dical [address] 2020-09-22 2020-09-22 Outpatient R VINICIO LARON [facility] [id number] Univers 15:30:00 15:30:00 ity [facility] 2020-09-13 2020-09-13 Orders Doctor CAMILO 1.2.840.114 [id number] Univers 00:00:00 00:00:00 Only Unassigned, DEIRDRE 350.1.13.10 ity of [place] [facility] 4.2.7.2.686 Danny as [phone] [facility] [address] 2020-09-13 2020-09-13 Orders Doctor CAMILO 1.2.840.114 [id number] 00:00:00 00:00:00 Only Unassigned, DEIRDRE 350.1.13.10 [place] [facility]PITAL 4.2.7.2.686 [id number] 009 2020-09-08 2020-09-08 Outpatient R AMADA [facility] [id number] Univers 16:30:00 16:30:00 ANNY ity [facility] 2020-09-08 2020-09-08 Routine Amada [facility] 1.2.507.023 [id number] [facility] 10:04:39 10:19:39 Anny [facility] 350.1.13.10 ity of [place] [phone] Fl dic[address] 2020-09-08 2020-09-08 Routine Amada [facility] 1.2.901.300 [id number] 10:04:39 10:19:39 Anny [facility] 350.1.13.10 Visit [place] 4.2.7.2.686 Professio [phone] [address] 2020-09-04 2020-09-04 Outpatient Harms, [facility] [id number] [facility] 20:56:00 20:56:00 Mart 42 2020-09-03 2020-09-03 Orders Doctor LESLEE 1.2.840.114 [id number] Univers 00:00:00 00:00:00 Only Unassigned, DEIRDRE 350.1.13.10 ity of [place] [facility] 4.2.7.2.686 Danny as [phone] [address] 2020-09-01 2020-09-01 Case Laron Mooney [facility] 1.2.480.764 [id number] [facility] 00:00:00 00:00:00 Management Cam [facility] 350.1.13.10 ity of [place] [phone] Fl dic[address] 2020-09-01 2020-09-01 Case Laron Mooney [facility] 1.2.460.175 [id number] 00:00:00 00:00:00 Management Cam [facility] 350.1.13.10 [place] 4.2.7.2.686 Professio [phone] [address] 2020-08-25 2020-08-25 Routine Mooney Laron [facility] 1.2.517.084 [id number] [facility] 09:47:40 10:28:07 Cam [facility] 350.1.13.10 ity of [place] [phone] Me dic[address] 2020-08-25 2020-08-25 Outpatient R LARON MOONEY [facility] [id number] Univers 09:45:00 09:45:[address] [facility] 2020-08-11 2020-08-11 Outpatient R [facility] [id number] Univers 10:15:00 10:15:[address] [facility] 2020-08-11 2020-08-11 [employer] 2, Adc Lab [facility] 1.2.840.114 [id number] Univers 09:10:01 09:25:01 Visit Laron Mooney Pietro Guerrero 350.1.13.10 it[place] of [place] [phone] Fl dical nal [address] [facility] 2020-07-30 2020-07-30 [employer] Ultrasound, Adc [facility] 1.2 .840.114 [id number] Univers 14:09:41 15:09:41 Visit Harry Chisholm 350.1.13.10 ity of [place] [phone] Fl dical nal 134 [facility] 2020-07-30 2020-07-30 Outpatient P [facility] [id number] Univers 14:00:00 14:00:[address] [facility] 2020-07-28 2020-07-28 Routine Laron Mooney [facility] 1.2.015.616 [id number] Univers 13:02:23 13:51:17 Pietro Guerrero 350.1.13.10 ity of [place] [phone] Fl dical nal 134 [facility] 2020-07-28 2020-07-28 Outpatient R LARON MOONEY [facility] [id number] Univers 13:00:00 13:00:[address] [facility] 2020-07-28 2020-07-28 Letter Doctor CAMILO 1.2.840.114 [id number] Univers 00:00:00 00:00:00 (Out) Unassigned, DEIRDRE 350.1.13.10 ity of [place] [facility] 4.2.7.2.686 Danny as [phone] [address] 2020-07-13 2020-07-13 Letter Laron Mooney [facility] 1.2.582.258 [id number] Univers 00:00:00 00:00:00 (Out) Cam [facility] 350.1.13.10 i ty of [place] [phone] [facility] 134 [facility] 2020-07-10 2020-07-10 Emergency [facility] 1.2.649.629 [id number] Univers 06:03:00 06:42:00 Stephanie S Yolanda 350.1.13.10 ity of [place].2.[place] [phone] [facility] [address] 2020-07-08 2020-07-08 Orders Doctor LESLEE 1.2.840.114 [id number] Univers 00:00:00 00:00:00 Only Unassigned, DEIRDRE 350.1.13.10 ity of [place] [facility] 4.2.7.2.686 Danny as [phone] [facility] [address] 2020-07-01 2020-07-01 [facility] 1.2.840.114 [id number] Univers 00:00:00 00:00:00 Cam [facility] 350.1.13.10 i ty of [place] [phone] [address] 2020-06-30 2020-06-30 [facility] 1.2.441.195 [id number] Univers 14:52:17 16:18:50 Cam [facility] 350.1.13.10 ity of [place] [phone] [address] 2020-06-30 2020-06-30 Outpatient R LARON MOONEY [facility] [id number] Univers 14:30:00 14:30:[address] [facility] 2020-06-30 2020-06-30 Orders Doctor CAMILO 1.2.840.114 [id number] Univers 00:00:00 00:00:00 Only Unassigned, DEIRDRE 350.1.13.10 ity of [place] [facility]OSPITAL 4.2.7.2.686 Danny [phone] [facility] [address] 2020-06-21 2020-06-21 [facility] 1.2.840.114 [id number] Univers 02:25:00 03:35:00 Encounter Jennifer Guerrero 350.1.13.10 ity of [place] 4.2.7.2.686 [facility] [phone] [facility] [address] 2020-06-21 2020-06-21 Outpatient P [facility] DAGO [id number] Univers 02:25:00 02:25:00 JENNIFER gill [facility] 2019-10-11 2019-10-12 Emergency X [facility]LY [facility] ERT [id number] Univers 23:44:50 04:24:00 STEPHANIE bridget [facility] Results Test Description Test Time Test Comments Results Result Comments Source CBC WITH DIFF 2023-07-06 20:39:03 Test Item Value Reference Range Interpretation Comme nts WBC (test code = 6690-2) 4.80 See_Comment [A utomated message] The system which ge nerated this result transmit kasi reference range: 4.30 - 1 1.10 10*3/?L. The reference r sunny was not used to interpr et this result as normal/abnor mal. RBC (test code = 789-8) 4.55 See_Comment [Au tomated message] The system which ge nerated this result transmit kasi reference range: 3.93 - 5 .25 10*6/?L. The reference r sunny was not used to interpr et this result as normal/abnor mal. HGB (test code = 718-7) 13.5 g/dL 11.6-15.0 HCT (test code = 4544-3) 39.9 % 35.7-45.2 MCV (test code = 787-2) 87.7 fL 80.6-95.5 MCH (test code = 785-6) 29.7 pg 25.9-32.8 MCHC (test code = 786-4) 33.8 g/dL 31.6-35.1 RDW-SD (test code = 74537-6) 41.6 fL 39.0-49.9 RDW-CV (test code = 788-0) 13.2 % 12.0-15.5 PLT (test code = 777-3) 240 See_Comment [Au tomated message] The system which [employer] nerated this result transmit kasi reference range: 166 - 35 8 10*3/?L. The reference range was not used to interpret th is result as normal/abnormal . MPV (test code = 65318-6) 13.5 fL 9.5-12.9 H IPF % (test code = 7.3 % 1.3-7.7 Platelet count measured by [id number]) fluorescence me thod. NRBC/100 WBC (test code = 0.0 See_Comment [ Automated message] The [id number]) system which [employer] nerated this result transmit kasi reference range: 0.0 - 10 .0 /100 WBCs. The reference r sunny was not used to interpr et this result as normal/abnor mal. NRBC x10^3 (test code = See_Comment [Au tomated message] The [id number]) system which [employer] nerated this result transmit kasi reference range: 10*3/?L. The reference range was not u sed to interpret this result as normal/abnormal . GRAN MAT (NEUT) % (test code 66.3 % = 770-8) IMM GRAN % (test code = 0.20 % [id number]) LYMPH % (test code = 736-9) 24.8 % MONO % (test code = 5905-5) 7.7 % EOS % (test code = 713-8) 0.6 % BASO % (test code = 706-2) 0.4 % GRAN MAT x10^3(ANC) (test 3.18 10*3/uL 1.88-7.09 code = 9968802021) IMM GRAN x10^3 (test code = 0.00-0.06 0012975759) LYMPH x10^3 (test code = 1.19 10*3/uL 1.32-3.29 L 731-0) MONO x10^3 (test code = 0.37 10*3/uL 0.33-0.92 742-7) EOS x10^3 (test code = 0.03 10*3/uL 0.03-0.39 711-2) BASO x10^3 (test code = 0.01-0.07 704-7) Lab Interpretation (test Abnormal code = 49983-4) [facility] H[facility] [id number] 19:47:18 Test Item Value Reference Range Interpretation Comments GLUC 1 HR (test code = 4071471905) 68 mg/dL 120-170 L Lab Interpretation (test code = Abnormal 59915-5) [facility] TylerPRENATAL WORKUP, BLOOD [id number] 18:18:00 Test Item Value Reference Range Interpretation Comments ABO & RH (test code = 20) O Positive IAT (test code = 1185) Negative [facility] UR[facility]AL[facility] W/O SPECIFIC [id number] 14:16:00 Test Item Value Reference Range Interpretation Comments POCT PH U (test code = 3254) na 5-8 POCT U LEUK EST (test code = 3263) na Negative - Negative POCT U NIT (test code = 3262) na Negative - Negative POCT U PROT (test code = 3259) neg Negative - Negative POCT U GLU (test code = 3256) neg Negative - Negative POCT U KETONE (test code = 3258) na Negative - Negative POCT U BLD (test code = 3257) na Negative - Negative [facility] W/O SPECIFIC [id number] 19:54:00 Test Item Value Reference Range Interpretation Comments [...] code = 3257) N/A Negative - Negative [facility] TylerPO[facility] [id number] 16:44:00 Test Item Value Reference Range Interpretation Comments POCT PREG (test code = 1605) Positive faint On board controls acceptable with C Yes Line (test code = 3574) POCT PREG LOT # (test code = 3575) POCT PREG TEST DATE (test code = 3576) [facility] [id number] 16:44:00 Test Item Value Reference Range Interpretation Comments POCT PREG (test code = 1605) Positive faint On board controls acceptable with C Yes Line (test code = 3574) POCT PREG LOT # (test code = 3575) POCT PREG TEST DATE (test code = 3576) [facility]
--- NOTE | 2023-07-17 21:09 | EDPHYS ---
Physician Documentation [facility] Name: Yesica Islas Age: 28 yrs Sex: Female : 1995 Arrival Date: 07/17/2023 Time: 19:32 Bed 12 Private MD: ED Physician Eduar Aldana HPI: 07/17 20:20 This 28 yrs old Female presents to ER via Ambulatory with complaints of Body cp Aches. 20:20 body aches and chills. cp 20:20 Onset: The symptoms/episode began/occurred today. Severity of symptoms: in the cp emergency department the symptoms are unchanged despite home interventions. 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 - Social history:: Smoking status: Patient denies any tobacco usage or history of. ROS: 20:25 Eyes: Negative for injury, pain, redness, and discharge, cp 20:25 Constitutional: Positive for body aches, chills, Negative for fever, poor PO intake, 20:25 ENT: Positive for sore throat, Negative for drainage from ear(s), ear pain, difficulty swallowing, difficulty handling secretions, 20:25 Neck: Negative for pain with movement, pain at rest, stiffness, 20:25 Abdomen/GI: Negative for abdominal pain, vomiting, diarrhea, constipation, 20:25 : Negative for urinary symptoms, vaginal bleeding, 20:25 Skin: Negative for rash, 20:25 Neuro: Negative for altered mental status, headache, weakness, 20:25 All other systems are negative, 20:25 Respiratory: Negative for cough, shortness of breath, wheezing, cp Exam: 20:30 Constitutional: The patient appears in no acute distress, alert, awake, comfortable, cp non-toxic, well developed, well nourished, 20:30 Head/Face: Normocephalic, atraumatic. cp 20:30 Eyes: Periorbital structures: appear normal, Conjunctiva: normal, no exudate, no injection, Lids and lashes: appear normal, bilaterally, 20:30 ENT: External ear(s): are unremarkable, Ear canal(s): are normal, clear, TM's: dullness, bilaterally, Nose: is normal, Mouth: Lips: moist, Oral mucosa: moist, Posterior pharynx: Airway: no evidence of obstruction, patent, Tonsils: bilaterally enlarged, with erythema, with exudate, erythema, that is moderate, Voice: is normal, 20:30 Neck: ROM/movement: is normal, is supple, no meningismus, no nuchal rigidity, 20:30 Chest/axilla: Inspection: normal, 20:30 Cardiovascular: Rate: tachycardic, 20:30 Respiratory: the patient does not display signs of respiratory distress, Respirations: normal, no use of accessory muscles, no retractions, labored breathing, is not present, Breath sounds: are clear throughout, no decreased breath sounds, no stridor, no wheezing, 20:30 Abdomen/GI: Exam negative for discomfort, distension, guarding, Inspection: abdomen appears normal, Vital Signs: 20:26 BP 105 / 75; Pulse 111; Resp 16; Temp 99.5; Pulse Ox 98% on R/A; Weight 69.4 kg (R); jb4 Height 5 ft. 2 in. ; Pain 7/10; 20:26 Body Mass Index 27.98 (69.40 kg, 157.48 cm) jb4 20:26 Pain Scale: Adult jb4 MDM: 20:14 Patient medically screened. cp 20:35 Differential Diagnosis flu, strep throat, COVID-19, uti. cp 21:08 Data reviewed: vital signs, nurses notes, lab test result(s). cp 21:08 Counseling: I had a detailed discussion with the patient and/or guardian regarding the cp historical points, exam findings, and any diagnostic results supporting the discharge/admit diagnosis, lab results, to return to the emergency department if symptoms worsen or persist or if there are any questions or concerns that arise at home. 07/17 20:12 Order name: COVID-19 SARS RT PCR; Complete Time: 21:05 cp 07/17 20:12 Order name: Influenza Screen (a \T\ B); Complete Time: 21:05 cp 07/17 20:12 Order name: Strep; Complete Time: 21:05 cp 07/17 21:05 Interpretation: Reviewed. cp Administered Medications: 21:19 Drug: Amoxicillin-Clavulanate PO 875 mg PO once Route: PO; cm10 21:19 Follow up: Response: No adverse reaction cm10 Disposition Summary: 07/17/23 21:09 Discharge Ordered Notes: Location: Home cp Problem: new cp Symptoms: have improved cp Condition: Stable cp Diagnosis - Acute streptococcal tonsillitis, unspecified cp Followup: cp - With: Private Physician - When: 2 - 3 days - Reason: Worsening of condition Discharge Instructions: - Discharge Summary Sheet cp - Tonsillitis cp Forms: - Medication Reconciliation Form cp - Thank You Letter cp - Antibiotic Education cp - Prescription Opioid Use cp - Patient Portal Instructions cp - Leadership Thank You Letter cp Prescriptions: - Augmentin 875-125 mg Oral Tablet - take 1 tablet ORAL route every 12 hours for 10 days; 20 tablet; Refills: 0, cp Product Selection Permitted Signatures: Dispatcher [employer] EDMS Waqas Aguillon PA PA cp Forrest Driver RN RN jb4 Kary Patel RN RN cm10 Corrections: (The following items were deleted from the chart) 07/18 04:00 07/17 20:20 Onset: The symptoms/episode began/occurred yesterday, cp cp 07/18 04:03 04:00 Constitutional: Positive for body aches, chills, Negative for fever, poor PO cp intake, cp 04:03 04:00 ENT: Positive for sore throat, Negative for drainage from ear(s), ear pain, cp difficulty swallowing, difficulty handling secretions, cp 04:03 04:00 Respiratory: Negative for cough, shortness of breath, wheezing, cp cp 04:03 04:00 Abdomen/GI: Negative for abdominal pain, vomiting, diarrhea, constipation, cp cp 04:03 04:00 : Negative for urinary symptoms, vaginal bleeding, cp cp 04:03 04:00 Eyes: Negative for injury, pain, redness, and discharge, cp cp 04:03 04:00 Neck: Negative for pain with movement, pain at rest, stiffness, cp cp 04:03 04:00 Skin: Negative for rash, cp cp 04:03 04:00 Neuro: Negative for altered mental status, headache, weakness, cp cp 04:03 04:00 All other systems are negative, cp cp
--- NOTE | 2023-07-17 21:09 | ER ---
Nurse's Notes [facility] Name: Yesica Islas Age: 28 yrs Sex: Female : 1995 Arrival Date: 07/17/2023 Time: 19:32 Bed 12 Private MD: Diagnosis: Acute streptococcal tonsillitis, unspecified Presentation: 07/17 20:19 Chief complaint: Patient states: I have body aches and chills. My son at home is sick. jb4 I am 12 weeks . Coronavirus screen: At this time, the client does not indicate any symptoms associated with coronavirus-19. Ebola Screen: No symptoms or risks identified at this time. Initial Sepsis Screen: Does the patient meet any 2 criteria? No. Patient's initial sepsis screen is negative. Does the patient have a suspected source of infection? No. Patient's initial sepsis screen is negative. Risk Assessment: Do you want to hurt yourself or someone else? Patient reports no desire to harm self or others. Onset of symptoms was July 17, 2023. Transition of care: patient was not received from another setting of care. 20:19 Method Of Arrival: Ambulatory [facility] 20:19 Acuity: KOFI 4 jb4 Triage Assessment: 21:05 General: Appears in no apparent distress. comfortable, Behavior is calm, cooperative. cm10 Pain: Complains of pain in Generalized body aches. Neuro: No deficits noted. Level of Consciousness is awake, alert, obeys commands, Oriented to person, place, time, situation. Cardiovascular: No deficits noted. Patient's skin is warm and dry. Respiratory: No deficits noted. Airway is patent Respiratory effort is even, unlabored, Respiratory pattern is regular, symmetrical. GI: No deficits noted. No signs and/or symptoms were reported involving the gastrointestinal system. : No deficits noted. No signs and/or symptoms were reported regarding the genitourinary system. Derm: No deficits noted. No signs and/or symptoms reported regarding the dermatologic system. Skin is intact, Skin is pink, warm \T\ dry. Musculoskeletal: No deficits noted. No signs and/or symptoms reported regarding the musculoskeletal system. Range of motion: intact in all extremities. 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 - Social history:: Smoking status: Patient denies any tobacco usage or history of. Screenin:06 [facility] ED Fall Risk Assessment (Adult) History of falling in the last 3 months, cm10 including since admission No falls in past 3 months (0 pts) Confusion or Disorientation No (0 pts) Intoxicated or Sedated No (0 pts) Impaired Gait No (0 pts) Mobility Assist Device Used No (0 pt) Altered Elimination No (0 pt) Score/Fall Risk Level 0 - 2 = Low Risk Oriented to surroundings, Maintained a safe environment, Hourly rounding (assess needs \T\ fall precautionary measures) done. Abuse screen: Denies threats or abuse. Denies injuries from another. Nutritional screening: No deficits noted. Tuberculosis screening: No symptoms or risk factors identified. Vital Signs: 20:26 BP 105 / 75; Pulse 111; Resp 16; Temp 99.5; Pulse Ox 98% on R/A; Weight 69.4 kg (R); jb4 Height 5 ft. 2 in. ; Pain 7/10; 20:26 Body Mass Index 27.98 (69.40 kg, 157.48 cm) jb4 20:26 Pain Scale: Adult jb4 ED Course: 19:35 Patient arrived in ED. jj6 19:48 Waqas Aguillon PA is PHCP. cp 19:49 Eduar Aldana DO is Attending Physician. cp 20:22 Triage completed. jb4 20:22 Arm band placed on right wrist. jb4 21:07 Patient has correct armband on for positive identification. Provided Education on: ER cm10 process and procedures. . 21:19 No provider procedures requiring assistance completed. Patient did not have IV access cm10 during this emergency room visit. Administered Medications: 21:19 Drug: Amoxicillin-Clavulanate PO 875 mg PO once Route: PO; cm10 21:19 Follow up: Response: No adverse reaction cm10 Medication: 21:06 VIS not applicable for this client. cm10 Outcome: 21:09 Discharge ordered by . cp 21:19 Discharged to home ambulatory, with significant other, cm10 21:19 Condition: good 21:19 Discharge instructions given to patient, Instructed on discharge instructions, follow up and referral plans. medication usage, Demonstrated understanding of instructions, follow-up care, medications, Prescriptions given X 1, 21:20 Patient left the ED. cm10 Signatures: Waqas Aguillon PA PA cp Bryson, James, RN RN jb4 Joycelyn Smith6 Kary Patel, RN RN cm10
[2023-07-17] MEDS ORDERED: AMOX/K CLAV 875 MG TAB ONE (21:26)
[2023-07-17 21:39] VITALS: BP 105/75; TEMP 99.5; O2SAT 98
== END 2023-07-17 21:20 | disposition home or self-care (01) ==
LOC: ER 19:32
DX: J03.00 Acute streptococcal tonsillitis, unspecified (principal); Z20.822 Contact with and (suspected) exposure to COVID-19
CPT/HCPCS: 87081; 87635; 87804; 99283

== ENCOUNTER 2024-09-07 06:38 | Emergency (ER) | payer OTHER ==
--- OUTSIDE RECORDS SUMMARY | 2024-09-07 06:49 | XMS REPORT | Continuity of Care Document ---
Author Name Unknown Address [address] [facility] [address] [place] [address] [facility] thconnect Address [address] [facility] [address] [place] [address] Care Team Providers Care Psych Nurse Name Role Phone Pcp, Patient Does Not Have A Primary Care Physic betito LARON MOONEY Attending Clinician Unavailable MAGDALENE LOZOYA Attending Clinician MAGDALENE Ross Attending Clinician LARON Oakley Attending Clinician Unavailable Laron Mooney MD Attending Clinician [phone] ITZ ROB Attending Clinician Unavailable Doctor Unassigned, [place] Attending Clinician U mica Pob, Adc Lab Main Attending Clinician Unavailabl e 2, Adc Lab Attending Clinician Unavailable JOSE INFANTE Attending Clinician Unavailable JOSE INFANTE Attending Clinician Unavailable Ultrasound, Ang-Mfm Attending Clinician UnavailJose Glez MD Attending Clinician Doctor Unassigned, [place] Attending Clinician U HERMINIA Smith Attending Clinician Unavailable Stevo STRIP TANK TENDER, Herminia Bethea Attending Clinician [phone] MOISE WALKER Attending Clinician Unavailable Moise Walker DO Attending Clinician [phone] LARISSA VEGA Attending Clinician Unavailable LARISSA VEGA Attending Clinician Unavailable Larissa Vega MD Attending Clinician [phone] Veena MURCIA, Zayda Tong Attending Clinician Unava ilNOE Mccullough Attending Clinician Unavailcurtis Fuentes MD, Noe Doll Attending Clinician [phone] LUZ ELENA DECKER Attending Clinician Unavailable Luz Elena Decker MD Attending Clinician [phone] Lab, Ang - Db Attending Clinician Unavailable EBENEZER ARAUJO Attending Clinician UnavailEBENEZER Roblero Attending Clinician UnavailKENYA Galvin Attending Clinician Unavailable Jorge FNPC, [place] Attending Clinician [phone] Unknown, Attending Attending Clinician Unavailab Yvan Rodriguez Attending Clinician [phone] YVAN GOODE Attending Clinician Unavailable Yaakov CRAIG Sendmike K.H. Attending Clinician + [phone] LISA BO K.HLiana Attending Clinician UnavailNEERU Hope Attending Clinician Unavailable Neeru Byrd MD Attending Clinician [phone] Stephanie Ro MD Attending Clinician [phone] STEPHANIE RO Attending Clinician Unavailable Pob, Adc Lab Main Attending Clinician Unavailabl e Only, Adc Test Attending Clinician Unavailable Anny Ybarra PA-C Attending Clinician [phone] ANNY YBARRA Attending Clinician Unavailable JENNIFER WELDON Attending Clinician Unavailable Jaswant Kirby Attending Clinician + [phone] Jennifer Weldon MD Attending Clinician [phone] Ivette Blum MD, Herbert Attending Clinician + HERBERT COLBY Attending Clinician UnaLisa Mays RN Attending Clinician Unabella ailable Nurse, [facility] Attending Clinician Un available Donell Saavedra MD Attending Clinician [phone] Edgardo Recinos MD Attending Clinician [phone] Mart Steele Attending Clinician Unavailable Ultrasound, [facility] Attending Clinician Unavailcurtis Chsiholm MD, Harry Hartley Attending Clinician [phone] LARON MOONEY Admitting Clinician Unavailable MAGDALENE LOZOYA Admitting Clinician JENNIFER Magallon Admitting Clinician Unavailable Vinicio CRAIG, Laron Westbrook Admitting Clinician [phone] LISA BO Admitting Clinician UnavailJennifer Horvath MD Admitting Clinician [phone] STEPHANIE RO Admitting Clinician Unavailable Payers Payer Name Policy Type Policy Number Effective Date Expirati on Date Source [facility] [id number] 2018 00:00:00 Problems Condition Name Condition Details Condition Category Status Onset Date Resolution Date Last Treatment Date Treating Clinician Comments Source History of anxiety History of anxiety Disease Active 7-01 00:00: 00 [facility] Nexplanon in place Nexplanon in place Disease Active 6-03 00:00: 00 [facility] Fever, unspecifie d Fever, unspecifie d Disease Active 1-10 00:00: 00 [facility] Encounter for screening for maternal depression Encounter for screening for maternal depression Disease Active 8-17 00:00: 00 [facility] Previous section Previous section Disease Active 9-30 00:00: 00 [facility] 39 weeks gestation of 39 weeks gestation of Disease Resolve d 2023-0 4-24 00:00: 00 2024-03-03 00:00:00 2024-03-03 15:39:39 [facility] Excessive growth affecting management of in third trimester Excessive growth affecting management of in third trimester Disease Resolve d 2023-0 4-24 00:00: 00 2024-03-03 00:00:00 2024-03-03 15:39:34 [facility] Abdominal pain affecting Abdominal pain affecting Disease Resolve d 2023-0 4-11 00:00: 00 2024-03-03 00:00:00 2024-03-03 15:39:40 [facility] Excessive weight gain during , antepartum Excessive weight gain during , antepartum Disease Resolve d 2022-1 2-13 00:00: 00 2024-03-03 00:00:00 2024-03-03 15:39:41 [facility] High-risk in third trimester High-risk in third trimester Disease Resolve d 2022-1 0-06 00:00: 00 2024-03-03 00:00:00 2024-03-03 15:39:44 [facility] Liveborn infant, of [place] , born in hospital by delivery Liveborn infant, of [place] , born in hospital by delivery Disease Resolve d 2020-0 1-28 00:00: 00 2024-03-03 00:00:00 2024-03-03 15:39:43 [facility] Pyelonephr itis complicati ng in second trimester Pyelonephr itis complicati ng in second trimester Disease Resolve d 2023-0 1-10 00:00: 00 2024-01-23 00:00:00 2024-01-23 07:40:57 [facility] Chlamydia trachomati s infection of lower genitourin cuca sites Chlamydia trachomati s infection of lower genitourin cuca sites Disease Resolve d 2022-0 9-12 00:00: 00 2024-01-23 00:00:00 2024-01-23 07:41:04 [facility] 30 weeks gestation of 30 weeks gestation of Disease Resolve d 2023-0 2-21 00:00: 00 2024-01-03 00:00:00 2024-01-23 07:38:19 [facility] 32 weeks gestation of 32 weeks gestation of Disease Resolve d 2023-0 2-21 00:00: 00 2023-12-20 00:00:00 2024-01-23 07:38:21 [facility] Pyelonephr itis complicati ng , second trimester Pyelonephr itis complicati ng , second trimester Disease Resolve d 0 1-11 00:00: 00 2023-11-21 00:00:00 2023-11-21 11:06:35 [facility] 24 weeks gestation of 24 weeks gestation of Disease Resolve d 0 1-10 00:00: 00 2023-11-07 00:00:00 2023-11-07 16:23:11 [facility] examinatio n or test, positive result examinatio n or test, positive result Disease Resolve d 0 8-17 00:00: 00 2023-06-08 00:00:00 2023-06-08 15:12:11 [facility] BMI 25.0-25.9, adult BMI 25.0-25.9, adult Disease Resolve d 0 8-17 00:00: 00 2023-06-08 00:00:00 2023-06-08 15:12:13 [facility] Obesity (BMI 30-39.9) Obesity (BMI 30-39.9) Disease Resolve d 2019-10 1-25 00:00: 00 2023-04-11 00:00:00 2023-04-11 09:57:04 [facility] 39 weeks gestation of 39 weeks gestation of Disease Resolve d 0 5-02 00:00: 00 2022-02-13 00:00:00 2022-02-13 17:49:32 [facility] Anemia, antepartum , third trimester Anemia, antepartum , third trimester Disease Resolve d 2021-0 5-02 00:00: 00 2022-02-13 00:00:00 2022-02-13 10:56:12 [facility] Positive GBS test Positive GBS test Disease Resolve d 2020-0 1-28 00:00: 00 2022-02-13 00:00:00 2022-02-13 17:49:35 [facility] Supervisio n of high risk , antepartum Supervisio n of high risk , antepartum Disease Resolve d 9-30 00:00: 00 2022-02-13 00:00:00 2024-01-23 07:40:48 [facility] 39 weeks gestation of 39 weeks gestation of Disease Resolve d 1-28 00:00: 00 2020-11-23 00:00:00 2020-11-23 14:39:57 [facility] Allergies, Adverse Reactions, Alerts Allergy Name Allergy Type Status Severity Reaction(s) Onset Date Inactive Date Treating Clinician Comments Source No Known Drug Allergie s DA Active U 2019-10 00:00: 00 [facility] NO KNOWN ALLERGIE S Drug Class Active [facility] Social History Social Habit Start Date Stop Date Quantity Comments Source ASSERTION 2023-05-08 00:00:00 [facility] Alcoholic beverage intake 2024-09-04 00:00:00 2024-09-04 00:00:00 Ex-drinker (finding) [facility] Alcohol intake 2023-12-20 00:00:00 2023-12-20 00:00:00 Ex-drinker (finding) [facility] History of Social function 2023-10-10 00:00:00 2023-10-10 00:00:00 [facility] Exposure to SARS-CoV-2 (event) 2023-01-27 00:00:00 2023-02-06 16:37:00 Not sure [facility] Tobacco use and exposure 2022-05-19 00:00:00 2022-05-19 00:00:00 Smokeless tobacco non-user [facility] Sex assigned at 1995 00:00:00 1995 00:00:00 [facility] Smoking Status Start Date Stop Date Source Never smoked tobacco [facility] Medications Ordered Medication Name Filled Medication Name Start Date Stop Date Current Medication? Ordering Clinician Indication Dosage Frequency Signature (SIG) Comments Components Source fluconazole 150 mg tablet 2023-10 00:00: 00 09-05 05:59 :00 Yes [id number] 150mg Take 1 tablet by mouth once now for 1 dose. [facility] fluconazole 150 mg tablet 8-28 00:00: 00 05-29 04:59 :00 No [id number] 150mg Take 1 tablet by mouth once now for 1 dose. [facility] etonogestre L (NEXPLANON) implant 68 mg 6-03 22:30: 00 03-03 21:34 :00 No [id number] 68mg [facility] valACYclovi r (VALTREX) 1 gram tablet 01-30 00:00: 00 02-01 04:59 :00 No [id number] 2g Take 2 tablets by mouth in the morning and 2 tablets in the evening. Do all this for 1 day. [facility] ibuprofen (IBU) tablet 600 mg 01-23 17:00: 00 Yes 600mg 600 mg, Oral, Q6H ABX, First dose (after last modificati on) on Zeina 01/24/24 at 1200, Until Discontinu ed, Routine [facility] ketorolac (TORADOL) injection 30 mg 01-23 05:00: 00 01-23 12:23 :58 No 30mg 30 mg, Slow IV Push, Q6H ABX, 4 doses, First dose on Zeina 01/24/24 at 0000, Last dose on Zeina 01/24/24 at 1800, Routine [facility] vitamin w/FA tablet 01-23 00:00: 00 05-26 00:00 :00 No [id number] 1{tbl} Take 1 tablet by mouth in the morning. [facility] docusate 100 mg capsule 01-23 00:00: 00 05-26 00:00 :00 No [id number] 200mg Take 2 capsules by mouth once daily as needed for Constipati on. [facility] ferrous sulfate 325 mg (65 mg iron) tablet 01-23 00:00: 00 05-26 00:00 :00 No [id number] 325mg Take 1 tablet by mouth in the morning. [facility] ibuprofen 600 mg tablet 01-23 00:00: 00 03-03 00:00 :00 No [id number] 600mg Take 1 tablet by mouth every 6 (six) hours as needed (Pain). Take with food or milk. [facility] acetaminoph en (TYLENOL) 325 mg tablet 01-23 00:00: 00 03-03 00:00 :00 No [id number] 650mg Take 2 tablets by mouth every 6 (six) hours as needed for Pain (scale 1-3) or Pain (scale 4-6). [facility] HYDROcodone -acetaminop hen 5-325 mg tablet 01-23 00:00: 00 01-31 04:59 :00 No [id number] 1{tbl} Take 1 tablet by mouth every 6 (six) hours as needed (Pain scale above 4) for up to 7 days. Do not exceed 3 grams of acetaminop hen in 24 hours. Indication s: acute pain [facility] gabapentin 300 mg capsule 01-23 00:00: 01-29 04:59 :00 No [id number] 300mg Take 1 capsule by mouth in the morning and 1 capsule at noon and 1 capsule in the evening. Do all this for 5 days. [facility] acetaminoph en (TYLENOL) tablet 1,000 mg 01-22 21:00: 00 Yes 1000mg 1,000 mg, Oral, Q8H ABX, First dose on Sun01/23/24 at 1600, Until Discontinu ed, Routine [facility] gabapentin (NEURONTIN) capsule 300 mg 01-22 19:00: 00 Yes 300mg 300 mg, Oral, TID, First dose on Sun01/23/24 at 1400, Until Discontinu ed, Routine [facility] lactated ringers IV infusion 1,000 mL 01-22 15:00: 00 01-22 20:06 :00 No 1000mL at 125 mL/hr, 1,000 mL, IV Infusion, ONCE, 1 dose, On Sun01/23/24 at 1000, Routine [facility] rho(D) immune globulin (RHOGAM) syringe 300 mcg 01-22 14:45: 08 Yes 300ug 300 mcg, Intramuscu lar, ONCE, For 1 dose, Conditiona l, Routine [facility] oxyCODONE immediate release tablet 5 mg 01-22 14:45: 03 Yes 5mg 5 mg, Oral, Q6HPRN, Starting on Sun01/23/24 at 0945, Until Discontinu ed, Routine, Pain (scale 7-10)
F aculty member approving Restricted medication : LARON MOONEY [facility] diphenhydrA MINE (BENADRYL) injection 25 mg 01-22 14:45: 03 Yes 25mg 25 mg, Slow IV Push, Q6HPRN, Starting on Sun01/23/24 at 0945, Until Discontinu ed, Routine, Itching [facility] diphenhydrA MINE (BENADRYL) tablet 25 mg 01-22 14:45: 02 Yes 25mg 25 mg, Oral, Q6HPRN, Starting on Sun01/23/24 at 0945, Until Discontinu ed, Routine, Sleep, Itching [facility] ondansetron (ZOFRAN (PF)) injection 4 mg 01-22 14:45: 02 Yes 4mg 4 mg, Slow IV Push, Q8HPRN, Starting on Sun01/23/24 at 0945, Until Discontinu ed, Routine, Nausea and Vomiting (N/V) [facility] bisacodyL (DULCOLAX) suppository 10 mg 01-22 14:45: 02 Yes 10mg 10 mg, Rectal, QDAILYPRN, Starting on Sun01/23/24 at 0945, Until Discontinu ed, Routine, Constipati on [facility] simethicone (GAS RELIEF (SIMETHICON E)) chewable tablet 160 mg 01-22 14:45: 02 Yes 160mg 160 mg, Oral, PC+HSPRN, Starting on Sun01/23/24 at 0945, Until Discontinu ed, Routine, Gas [facility] docusate (COLACE) capsule 200 mg 01-22 14:45: 02 Yes 200mg 200 mg, Oral, QDAILYPRN, Starting on Sun01/23/24 at 0945, Until Discontinu ed, Routine, Constipati on [facility] magnesium hydroxide (MILK OF MAGNESIA) 400 mg/5 mL suspension 30 mL 01-22 14:45: 02 Yes 30mL 30 mL, Oral, QDAILYPRN, Starting on Sun01/23/24 at 0945, Until Discontinu ed, Routine, Constipati on [facility] lactated ringers IV infusion 1,000 mL 01-22 14:45: 02 Yes 1000mL at 125 mL/hr, 1,000 mL, IV Infusion, PRN, 1 dose, Starting on Sun01/23/24 at 0945, Until Discontinu ed, Routine [facility] sodium chloride 0.9 % irrigation solution 01-22 13:51: 00 Yes PRN, Starting on Sun01/23/24 at 0851, Until Discontinu ed, Intra-op [facility] mupirocin (BACTROBAN OINT) 2 % oinintment 01-22 13:51: 00 Yes Intra-op [facility] ceFAZolin (ANCEF) 2,000 mg in NaCl 0.9% (NS) 100 mL MINI-BAG 01-22 10:25: 39 01-22 14:45 :06 No 2000mg 2,000 mg, IV Piggyback, O.R. HOLDING ONCE, Starting on Sun01/23/24 at 0525, Until Sun01/23/24 at 0945, Administer over 30 Minutes, 100 mL
Reas on for Anti-Infec tive: Surgical Prophylaxi s
Surgi raymond Prophylaxi s: HEEL SEAT FLAP STAPLER
Duration of therapy: within 24 hours of surgery [facility] sodium citrate-cit saranya acid (BICITRA) 500-334 mg/5 mL solution 30 mL 01-22 10:25: 34 01-22 12:39 :00 No 30mL 30 mL, Oral, PRE-PROCED URE ONCE, 1 dose, Starting on Sun01/23/24 at 0525, Until Discontinu ed, Routine, Surgery/Pr ocedure [facility] D5W-LR IV infusion 1,000 mL 01-22 10:25: 34 01-22 14:45 :06 No 1000mL at 1-125 mL/hr, IV Infusion, TITRATE, Starting on Sun01/23/24 at 0525, Until Sun01/23/24 at 0945, Routine [facility] lactated ringers IV infusion 1,000 mL 01-10 02:00: 00 01-10 01:45 :00 No 1000mL at 999 mL/hr, 1,000 mL, Intravenou s, ONCE, 1 dose, On Zeina 01/10/24 at 2100, Routine [facility] amoxicillin 500 mg tablet 12-12 00:00: 00 12-19 00:00 :00 No [id number] 500mg Take 1 tablet by mouth in the morning and 1 tablet at noon and 1 tablet in the evening. Do all this for 10 days. [facility] NaCl 0.9% (NS) bolus infusion 1,000 mL 11-24 03:30: 00 11-24 04:07 :00 No 1000mL at 999 mL/hr, 1,000 mL, IV Piggyback, ONCE, 1 dose, On Sun11/23/23 at 2130, STAT [facility] hydrOXYzine 25 mg tablet 11-21 00:00: 00 01-23 00:00 :00 No [id number] 25mg Take 1 tablet by mouth every 6 (six) hours as needed for Itching. [facility] hydrocortis one 2.5 % ointment 11-21 00:00: 00 01-23 00:00 :00 No [id number] Apply to affected area(s) 2 (two) times daily as needed for Itching. [facility] cephALEXin 500 mg capsule 11-07 00:00: 01-23 00:00 :00 No [id number] 108 500mg Take 1 capsule by mouth in the morning. [facility] amoxicillin -clavulanat e (AUGMENTIN) 875-125 mg per tablet 10-16 00:00: 00 10-27 05:59 :00 No [id number] 108 1{tbl} Take 1 tablet by mouth in the morning and 1 tablet in the evening. Do all this for 10 days. [facility] clotrimazol e 1 % vaginal cream 10-16 00:00: 00 10-24 05:59 :00 No [id number] 1{appli cator} Insert 1 Applicator into vagina at bedtime for 7 days. [facility] cefTRIAXone (ROCEPHIN) 2,000 mg in NaCl 0.9% (NS) 100 mL MINI-BAG 10-12 00:15: 00 10-12 00:26 :00 No 2000mg 2,000 mg, IV Piggyback, ONCE, 1 dose, On Zeina 10/11/23 at 1815, Administer over 30 Minutes, 100 mL
Reas on for Anti-Infec tive: Documented Infection< br>Documen kasi Infection Site: Urine
D uration of Therapy: Other (see Comments) [facility] PNV no.95/lana us fum/folic ac ( ORAL) 10-11 17:32: 56 10-11 00:00 :00 No Take by mouth. [facility] KCL (KLOR-CON M20) tablet 20 mEq 10-11 12:15: 00 10-11 12:19 :00 No 20meq 20 mEq, Oral, ONCE, 1 dose, On Zeina 10/11/23 at 0615, Routine [facility] KCL (KLOR-CON M20) tablet 40 mEq 10-11 11:45: 00 10-11 11:39 :00 No 40meq 40 mEq, Oral, ONCE, 1 dose, On Zeina 10/11/23 at 0545, Routine [facility] acetaminoph en (TYLENOL) tablet 650 mg 10-11 07:27: 00 10-11 07:29 :00 No 650mg 650 mg, Oral, ONCE, 1 dose, On Zeina 10/11/23 at 0130, Routine [facility] D5W 0.9% NaCl (NS) IV infusion 1,000 mL 10-11 00:15: 00 Yes 1000mL at 125 mL/hr, 1,000 mL, IV Infusion, CONTINUOUS , Starting on Sun10/10/23 at 1815, Until Discontinu ed, Routine [facility] cefTRIAXone (ROCEPHIN) 2,000 mg in NaCl 0.9% (NS) 100 mL MINI-BAG 10-11 00:15: 00 10-11 00:37 :00 No 2000mg 2,000 mg, IV Piggyback, ONCE, 1 dose, On Sun10/10/23 at 1815, Administer over 30 Minutes, 100 mL
Reas on for Anti-Infec tive: Documented Infection< br>Documen kasi Infection Site: Urine
D uration of Therapy: Other (see Comments) [facility] PNV 67-iron ps-folate no.1-dha (VITAFOL ULTRA) 29 mg iron- 1 mg-200 mg Cap 10-11 00:00: 00 01-23 00:00 :00 No [id number] Take 1 TAB-CAP/M2 by mouth in the morning. [facility] amoxicillin 875 mg tablet 10-11 00:00: 10-24 05:59 :00 No [id number] 108 875mg Take 1 tablet by mouth in the morning and 1 tablet in the evening. Do all this for 12 days. [facility] NaCl 0.9% (NS) IV infusion 1,000 mL 10-11 00:00: 00 10-10 23:45 :05 No 1000mL at 999 mL/hr, IV Infusion, ONCE, 1 dose, On Sun10/10/23 at 1800, Routine [facility] NaCl 0.9% (NS) IV infusion 1,000 mL 10-10 21:45: 00 10-10 22:12 :54 No 1000mL at 999 mL/hr, IV Infusion, ONCE, 1 dose, On Sun10/10/23 at 1545, Routine [facility] PNV no.95/lana us fum/folic ac ( ORAL) 10-10 14:44: 33 Yes Take by mouth. [facility] PNV no.95/lana us fum/folic ac ( ORAL) 2022-10 11:38: 56 Yes Take by mouth. [facility] azithromyci n 500 mg tablet 06-12 00:00: 00 06-13 04:59 :00 No [id number] 1000mg Take 2 tablets by mouth once now for 1 dose. [facility] polymyxin B sulf-trimet hoprim 10,000 unit- 1 mg/mL ophthalmic drops 03-21 00:00: 00 06-08 00:00 :00 No [id number] 1[drp] Place 1 Drop in both eyes every 4 (four) hours. [facility] cephALEXin (KEFLEX) 500 mg capsule 02-06 00:00: 00 02-17 04:59 :00 No [id number] 500mg Take 1 capsule by mouth 4 (four) times daily for 10 days. [facility] clindamycin 150 mg capsule 8-15 00:00: 00 05-21 04:59 :00 No [id number] 150mg Take 1 capsule by mouth 4 (four) times daily for 5 days. [facility] vitamin w/FA tablet 01-31 00:00: 00 Yes [id number] 1{tbl} Take 1 tablet by mouth daily. [facility] vitamin w/FA tablet 01-31 00:00: 00 06-08 00:00 :00 No [id number] 1{tbl} Take 1 tablet by mouth daily. [facility] ferrous sulfate 325 mg (65 mg iron) tablet 01-31 00:00: 00 06-08 00:00 :00 No [id number] 325mg Take 1 tablet by mouth 2 (two) times daily. [facility] Nitrofurant oin&Nit. Macrocryst (MACROBID) 100 mg capsule 2020-10 2- 00:00: 00 10-14 00:00 :00 No [id number] 100mg Take 1 capsule by mouth 2 (two) times daily. [facility] VITAFOL ULTRA 29 mg iron- 1 mg-200 mg Cap 06-28 00:00: 00 12-12 00:00 :00 No 1{capsu le} Take 1 capsule by mouth daily. [facility] ACYCLOVIR ORAL 10-29 07:47: 18 10-29 00:00 :00 No Take by mouth. [facility] ferrous sulfate 325 mg (65 mg iron) tablet 10-29 00:00: 00 01-31 00:00 :00 No [id number] 325mg Take 1 tablet by mouth 2 (two) times daily. [facility] vitamin w/FA tablet 10-29 00:00: 00 10-14 00:00 :00 No [id number] 1{tbl} Take 1 tablet by mouth daily. [facility] hydrOXYzine 25 mg tablet 10-14 00:00: 00 10-29 00:00 :00 No [id number] 25mg Take 1 tablet by mouth every 6 (six) hours as needed for Itching. [facility] metroNIDAZO LE 500 mg tablet 10-03 00:00: 00 10-21 00:00 :00 No TAKE 1 TABLET BY MOUTH 1 TIME NOW FOR 1 DOSE [facility] Immunizations Ordered Immunization Name Filled Immunization Name Date Status Comments Source TD 2023-11-07 00:00:00 Completed [facility] TDAP 2023-11-07 00:00:00 Completed [facility] Influenza Virus Vaccine Quad IM, Preserv and ABX Free 6 MO-64 YRS (FLUCELVAX) 2023-07-06 00:00:00 Completed [facility] Influenza Virus Vaccine Quad IM, Preserv and ABX Free 6 MO-64 YRS (FLUCELVAX) 2023-07-06 00:00:00 Completed [facility] TDAP 2021-11-30 00:00:00 Completed [facility] TDAP 2021-11-30 00:00:00 Completed [facility] TDAP 2021-11-30 00:00:00 Completed [facility] TDAP 2021-11-30 00:00:00 Completed [facility] TDAP 2021-11-30 00:00:00 Completed [facility] TDAP 2021-11-30 00:00:00 Completed [facility] TDAP 2021-11-30 00:00:00 Completed [facility] TDAP 2021-11-30 00:00:00 Completed [facility] TDAP 2021-11-30 00:00:00 Completed [facility] TDAP 2021-11-30 00:00:00 Completed [facility] TDAP 2021-11-30 00:00:00 Completed [facility] TDAP 2021-11-30 00:00:00 Completed [facility] TDAP 2021-11-30 00:00:00 Completed [facility] TDAP 2021-11-30 00:00:00 Completed [facility] TDAP 2021-11-30 00:00:00 Completed [facility] [facility] TDAP 2021-11-30 00:00:00 Completed [facility] TDAP 2021-11-30 00:00:00 Completed [facility] TDAP 2021-11-30 00:00:00 Completed [facility] TDAP 2021-11-30 00:00:00 Completed [facility] TDAP 2021-11-30 00:00:00 Completed [facility] Influenza Virus Vaccine Quad .5 mL IM 6+ MO 2021-08-19 00:00:00 Completed [facility] Influenza Virus Vaccine Quad .5 mL IM 6+ MO 2021-08-19 00:00:00 Completed [facility] Influenza Virus Vaccine Quad .5 mL IM 6+ MO 2021-08-19 00:00:00 Completed [facility] Influenza Virus Vaccine Quad .5 mL IM 6+ MO 2021-08-19 00:00:00 Completed [facility] Influenza Virus Vaccine Quad .5 mL IM 6+ MO 2021-08-19 00:00:00 Completed [facility] Influenza Virus Vaccine Quad .5 mL IM 6+ MO 2021-08-19 00:00:00 Completed [facility] Influenza Virus Vaccine Quad .5 mL IM 6+ MO 2021-08-19 00:00:00 Completed [facility] Influenza Virus Vaccine Quad .5 mL IM 6+ MO 2021-08-19 00:00:00 Completed [facility] Influenza Virus Vaccine Quad .5 mL IM 6+ MO 2021-08-19 00:00:00 Completed [facility] Influenza Virus Vaccine Quad .5 mL IM 6+ MO 2021-08-19 00:00:00 Completed [facility] Influenza Virus Vaccine Quad .5 mL IM 6+ MO 2021-08-19 00:00:00 Completed [facility] Influenza Virus Vaccine Quad .5 mL IM 6+ MO 2021-08-19 00:00:00 Completed [facility] Influenza Virus Vaccine Quad .5 mL IM 6+ MO 2021-08-19 00:00:00 Completed [facility] Influenza Virus Vaccine Quad .5 mL IM 6+ MO (FLUZONE/FLULAVAL/FL UARIX) 2021-08-19 00:00:00 Completed [facility] Influenza Virus Vaccine Quad .5 mL IM 6+ MO (FLUZONE/FLULAVAL/FL UARIX) 2021-08-19 00:00:00 Completed [facility] Influenza Virus Vaccine Quad .5 mL IM 6+ MO (FLUZONE/FLULAVAL/FL UARIX) 2021-08-19 00:00:00 Completed [facility] Influenza Virus Vaccine Quad .5 mL IM 6+ MO (FLUZONE/FLULAVAL/FL UARIX) 2021-08-19 00:00:00 Completed [facility] Influenza Virus Vaccine Quad .5 mL IM 6+ MO (FLUZONE/FLULAVAL/FL UARIX) 2021-08-19 00:00:00 Completed [facility] Influenza Virus Vaccine Quad .5 mL IM 6+ MO (FLUZONE/FLULAVAL/FL UARIX) 2021-08-19 00:00:00 Completed [facility] Influenza Virus Vaccine Quad .5 mL IM 6+ MO (FLUZONE/FLULAVAL/FL UARIX) 2021-08-19 00:00:00 Completed [facility] TDAP 2020-08-25 00:00:00 Completed [facility] TDAP 2020-08-25 00:00:00 Completed [facility] TDAP 2020-08-25 00:00:00 Completed [facility] TDAP 2020-08-25 00:00:00 Completed [facility] TDAP 2020-08-25 00:00:00 Completed [facility] TDAP 2020-08-25 00:00:00 Completed [facility] TDAP 2020-08-25 00:00:00 Completed [facility] TDAP 2020-08-25 00:00:00 Completed [facility] TDAP 2020-08-25 00:00:00 Completed [facility] TDAP 2020-08-25 00:00:00 Completed [facility] TDAP 2020-08-25 00:00:00 Completed [facility] TDAP 2020-08-25 00:00:00 Completed [facility] TDAP 2020-08-25 00:00:00 Completed [facility] TDAP 2020-08-25 00:00:00 Completed [facility] TDAP 2020-08-25 00:00:00 Completed [facility] TDAP 2020-08-25 00:00:00 Completed [facility] TDAP 2020-08-25 00:00:00 Completed [facility] TDAP 2020-08-25 00:00:00 Completed [facility] TDAP 2020-08-25 00:00:00 Completed [facility] TDAP 2020-08-25 00:00:00 Completed [facility] Influenza Virus Vaccine Quad .5 mL IM 6+ MO 2020-06-30 00:00:00 Completed [facility] Influenza Virus Vaccine Quad .5 mL IM 6+ MO 2020-06-30 00:00:00 Completed [facility] Influenza Virus Vaccine Quad .5 mL IM 6+ MO 2020-06-30 00:00:00 Completed [facility] Influenza Virus Vaccine Quad .5 mL IM 6+ MO 2020-06-30 00:00:00 Completed [facility] Influenza Virus Vaccine Quad .5 mL IM 6+ MO 2020-06-30 00:00:00 Completed [facility] Influenza Virus Vaccine Quad .5 mL IM 6+ MO 2020-06-30 00:00:00 Completed [facility] Influenza Virus Vaccine Quad .5 mL IM 6+ MO 2020-06-30 00:00:00 Completed [facility] Influenza Virus Vaccine Quad .5 mL IM 6+ MO 2020-06-30 00:00:00 Completed [facility] Influenza Virus Vaccine Quad .5 mL IM 6+ MO 2020-06-30 00:00:00 Completed [facility] Influenza Virus Vaccine Quad .5 mL IM 6+ MO 2020-06-30 00:00:00 Completed [facility] Influenza Virus Vaccine Quad .5 mL IM 6+ MO 2020-06-30 00:00:00 Completed [facility] Influenza Virus Vaccine Quad .5 mL IM 6+ MO 2020-06-30 00:00:00 Completed [facility] Influenza Virus Vaccine Quad .5 mL IM 6+ MO 2020-06-30 00:00:00 Completed [facility] Influenza Virus Vaccine Quad .5 mL IM 6+ MO (FLUZONE/FLULAVAL/FL UARIX) 2020-06-30 00:00:00 Completed [facility] Influenza Virus Vaccine Quad .5 mL IM 6+ MO (FLUZONE/FLULAVAL/FL UARIX) 2020-06-30 00:00:00 Completed [facility] Influenza Virus Vaccine Quad .5 mL IM 6+ MO (FLUZONE/FLULAVAL/FL UARIX) 2020-06-30 00:00:00 Completed [facility] Influenza Virus Vaccine Quad .5 mL IM 6+ MO (FLUZONE/FLULAVAL/FL UARIX) 2020-06-30 00:00:00 Completed [facility] Influenza Virus Vaccine Quad .5 mL IM 6+ MO (FLUZONE/FLULAVAL/FL UARIX) 2020-06-30 00:00:00 Completed [facility] Influenza Virus Vaccine Quad .5 mL IM 6+ MO (FLUZONE/FLULAVAL/FL UARIX) 2020-06-30 00:00:00 Completed [facility] Influenza Virus Vaccine Quad .5 mL IM 6+ MO (FLUZONE/FLULAVAL/FL UARIX) 2020-06-30 00:00:00 Completed [facility] HPV 2012-02-08 00:00:00 Completed [facility] HPV 2012-02-08 00:00:00 Completed [facility] HPV 2012-02-08 00:00:00 Completed [facility] HPV 2012-02-08 00:00:00 Completed [facility] HPV 2012-02-08 00:00:00 Completed [facility] HPV 2012-02-08 00:00:00 Completed [facility] HPV 2012-02-08 00:00:00 Completed [facility] HPV 2012-02-08 00:00:00 Completed [facility] HPV 2012-02-08 00:00:00 Completed [facility] HPV 2012-02-08 00:00:00 Completed [facility] HPV 2012-02-08 00:00:00 Completed [facility] HPV 2012-02-08 00:00:00 Completed [facility] HPV 2012-02-08 00:00:00 Completed [facility] HPV 2012-02-08 00:00:00 Completed [facility] HPV 2012-02-08 00:00:00 Completed [facility] HPV 2012-02-08 00:00:00 Completed [facility] HPV 2012-02-08 00:00:00 Completed [facility] HPV 2012-02-08 00:00:00 Completed [facility] HPV 2012-02-08 00:00:00 Completed HPV 2012-02-08 00:00:00 Completed HPV 2011-10-31 00:00:00 Completed [facility] HPV 2011-10-31 00:00:00 Completed [facility] HPV 2011-10-31 00:00:00 Completed [facility] HPV 2011-10-31 00:00:00 Completed [facility] HPV 2011-10-31 00:00:00 Completed [facility] HPV 2011-10-31 00:00:00 Completed [facility] HPV 2011-10-31 00:00:00 Completed [facility] HPV 2011-10-31 00:00:00 Completed [facility] HPV 2011-10-31 00:00:00 Completed [facility] HPV 2011-10-31 00:00:00 Completed [facility] HPV 2011-10-31 00:00:00 Completed [facility] HPV 2011-10-31 00:00:00 Completed [facility] HPV 2011-10-31 00:00:00 Completed [facility] HPV 2011-10-31 00:00:00 Completed [facility] HPV 2011-10-31 00:00:00 Completed [facility] HPV 2011-10-31 00:00:00 Completed [facility] HPV 2011-10-31 00:00:00 Completed [facility] HPV 2011-10-31 00:00:00 Completed [facility] HPV 2011-10-31 00:00:00 Completed HPV 2011-10-31 00:00:00 Completed HPV 2011-07-13 00:00:00 Completed [facility] HPV 2011-07-13 00:00:00 Completed [facility] HPV 2011-07-13 00:00:00 Completed [facility] HPV 2011-07-13 00:00:00 Completed [facility] HPV 2011-07-13 00:00:00 Completed [facility] HPV 2011-07-13 00:00:00 Completed [facility] HPV 2011-07-13 00:00:00 Completed [facility] HPV 2011-07-13 00:00:00 Completed [facility] HPV 2011-07-13 00:00:00 Completed [facility] HPV 2011-07-13 00:00:00 Completed [facility] HPV 2011-07-13 00:00:00 Completed [facility] HPV 2011-07-13 00:00:00 Completed [facility] HPV 2011-07-13 00:00:00 Completed [facility] HPV 2011-07-13 00:00:00 Completed [facility] HPV 2011-07-13 00:00:00 Completed [facility] HPV 2011-07-13 00:00:00 Completed [facility] HPV 2011-07-13 00:00:00 Completed [facility] HPV 2011-07-13 00:00:00 Completed [facility] HPV 2011-07-13 00:00:00 Completed HPV 2011-07-13 00:00:00 Completed Meningococcal Polysaccharide (groups A, C, Y and W-135) conjugate vaccine (MCV4P) 2010-12-28 00:00:00 Completed [facility] TDAP 2010-12-28 00:00:00 Completed [facility] Varicella (varivax)(chicken pox) 2010-12-28 00:00:00 Completed [facility] Meningococcal Polysaccharide (groups A, C, Y and W-135) conjugate vaccine (MCV4P) 2010-12-28 00:00:00 Completed [facility] TDAP 2010-12-28 00:00:00 Completed [facility] Varicella (varivax)(chicken pox) 2010-12-28 00:00:00 Completed [facility] Meningococcal Polysaccharide (groups A, C, Y and W-135) conjugate vaccine (MCV4P) 2010-12-28 00:00:00 Completed [facility] TDAP 2010-12-28 00:00:00 Completed [facility] Varicella (varivax)(chicken pox) 2010-12-28 00:00:00 Completed [facility] Meningococcal Polysaccharide (groups A, C, Y and W-135) conjugate vaccine (MCV4P) 2010-12-28 00:00:00 Completed [facility] TDAP 2010-12-28 00:00:00 Completed [facility] Varicella (varivax)(chicken pox) 2010-12-28 00:00:00 Completed [facility] Meningococcal Polysaccharide (groups A, C, Y and W-135) conjugate vaccine (MCV4P) 2010-12-28 00:00:00 Completed [facility] TDAP 2010-12-28 00:00:00 Completed [facility] Varicella (varivax)(chicken pox) 2010-12-28 00:00:00 Completed [facility] Meningococcal Polysaccharide (groups A, C, Y and W-135) conjugate vaccine (MCV4P) 2010-12-28 00:00:00 Completed [facility] TDAP 2010-12-28 00:00:00 Completed [facility] Varicella (varivax)(chicken pox) 2010-12-28 00:00:00 Completed [facility] Meningococcal Polysaccharide (groups A, C, Y and W-135) conjugate vaccine (MCV4P) 2010-12-28 00:00:00 Completed [facility] TDAP 2010-12-28 00:00:00 Completed [facility] Varicella (varivax)(chicken pox) 2010-12-28 00:00:00 Completed [facility] Meningococcal Polysaccharide (groups A, C, Y and W-135) conjugate vaccine (MCV4P) 2010-12-28 00:00:00 Completed [facility] TDAP 2010-12-28 00:00:00 Completed [facility] Varicella (varivax)(chicken pox) 2010-12-28 00:00:00 Completed [facility] Meningococcal Polysaccharide (groups A, C, Y and W-135) conjugate vaccine (MCV4P) 2010-12-28 00:00:00 Completed [facility] TDAP 2010-12-28 00:00:00 Completed [facility] Varicella (varivax)(chicken pox) 2010-12-28 00:00:00 Completed [facility] Meningococcal Polysaccharide (groups A, C, Y and W-135) conjugate vaccine (MCV4P) 2010-12-28 00:00:00 Completed [facility] TDAP 2010-12-28 00:00:00 Completed [facility] Varicella (varivax)(chicken pox) 2010-12-28 00:00:00 Completed [facility] Meningococcal Polysaccharide (groups A, C, Y and W-135) conjugate vaccine (MCV4P) 2010-12-28 00:00:00 Completed [facility] TDAP 2010-12-28 00:00:00 Completed [facility] Varicella (varivax)(chicken pox) 2010-12-28 00:00:00 Completed [facility] Meningococcal Polysaccharide (groups A, C, Y and W-135) conjugate vaccine (MCV4P) 2010-12-28 00:00:00 Completed [facility] TDAP 2010-12-28 00:00:00 Completed [facility] Varicella (varivax)(chicken pox) 2010-12-28 00:00:00 Completed [facility] Meningococcal Polysaccharide (groups A, C, Y and W-135) conjugate vaccine (MCV4P) 2010-12-28 00:00:00 Completed [facility] TDAP 2010-12-28 00:00:00 Completed [facility] Varicella (varivax)(chicken pox) 2010-12-28 00:00:00 Completed [facility] Meningococcal Polysaccharide (groups A, C, Y and W-135) conjugate vaccine (MCV4P) 2010-12-28 00:00:00 Completed [facility] TDAP 2010-12-28 00:00:00 Completed [facility] Varicella (varivax)(chicken pox) 2010-12-28 00:00:00 Completed [facility] Meningococcal Polysaccharide (groups A, C, Y and W-135) conjugate vaccine (MCV4P) 2010-12-28 00:00:00 Completed [facility] TDAP 2010-12-28 00:00:00 Completed [facility] Varicella (varivax)(chicken pox) 2010-12-28 00:00:00 Completed [facility] Meningococcal Polysaccharide (groups A, C, Y and W-135) conjugate vaccine (MCV4P) 2010-12-28 00:00:00 Completed [facility] TDAP 2010-12-28 00:00:00 Completed [facility] Varicella (varivax)(chicken pox) 2010-12-28 00:00:00 Completed [facility] Meningococcal Polysaccharide (groups A, C, Y and W-135) conjugate vaccine (MCV4P) 2010-12-28 00:00:00 Completed [facility] TDAP 2010-12-28 00:00:00 Completed [facility] Varicella (varivax)(chicken pox) 2010-12-28 00:00:00 Completed [facility] Meningococcal Polysaccharide (groups A, C, Y and W-135) conjugate vaccine (MCV4P) 2010-12-28 00:00:00 Completed [facility] TDAP 2010-12-28 00:00:00 Completed [facility] Varicella (varivax)(chicken pox) 2010-12-28 00:00:00 Completed [facility] Meningococcal Polysaccharide (groups A, C, Y and W-135) conjugate vaccine (MCV4P) 2010-12-28 00:00:00 Completed TDAP 2010-12-28 00:00:00 Completed Varicella (varivax)(chicken pox) 2010-12-28 00:00:00 Completed Meningococcal Polysaccharide (groups A, C, Y and W-135) conjugate vaccine (MCV4P) 2010-12-28 00:00:00 Completed TDAP 2010-12-28 00:00:00 Completed Varicella (varivax)(chicken pox) 2010-12-28 00:00:00 Completed DTAP 2002-06-30 00:00:00 Completed [facility] MMR 2002-06-30 00:00:00 Completed [facility] Polio (IPV/OPV) 2002-06-30 00:00:00 Completed [facility] DTAP 2002-06-30 00:00:00 Completed [facility] MMR 2002-06-30 00:00:00 Completed [facility] Polio (IPV/OPV) 2002-06-30 00:00:00 Completed [facility] DTAP 2002-06-30 00:00:00 Completed [facility] MMR 2002-06-30 00:00:00 Completed [facility] Polio (IPV/OPV) 2002-06-30 00:00:00 Completed [facility] DTAP 2002-06-30 00:00:00 Completed [facility] MMR 2002-06-30 00:00:00 Completed [facility] Polio (IPV/OPV) 2002-06-30 00:00:00 Completed [facility] DTAP 2002-06-30 00:00:00 Completed [facility] MMR 2002-06-30 00:00:00 Completed [facility] Polio (IPV/OPV) 2002-06-30 00:00:00 Completed [facility] DTAP 2002-06-30 00:00:00 Completed [facility] MMR 2002-06-30 00:00:00 Completed [facility] Polio (IPV/OPV) 2002-06-30 00:00:00 Completed [facility] DTAP 2002-06-30 00:00:00 Completed [facility] MMR 2002-06-30 00:00:00 Completed [facility] Polio (IPV/OPV) 2002-06-30 00:00:00 Completed [facility] DTAP 2002-06-30 00:00:00 Completed [facility] MMR 2002-06-30 00:00:00 Completed [facility] Polio (IPV/OPV) 2002-06-30 00:00:00 Completed [facility] DTAP 2002-06-30 00:00:00 Completed [facility] MMR 2002-06-30 00:00:00 Completed [facility] Polio (IPV/OPV) 2002-06-30 00:00:00 Completed [facility] DTAP 2002-06-30 00:00:00 Completed [facility] MMR 2002-06-30 00:00:00 Completed [facility] Polio (IPV/OPV) 2002-06-30 00:00:00 Completed [facility] DTAP 2002-06-30 00:00:00 Completed [facility] MMR 2002-06-30 00:00:00 Completed [facility] Polio (IPV/OPV) 2002-06-30 00:00:00 Completed [facility] DTAP 2002-06-30 00:00:00 Completed [facility] MMR 2002-06-30 00:00:00 Completed [facility] Polio (IPV/OPV) 2002-06-30 00:00:00 Completed [facility] DTAP 2002-06-30 00:00:00 Completed [facility] MMR 2002-06-30 00:00:00 Completed [facility] Polio (IPV/OPV) 2002-06-30 00:00:00 Completed [facility] DTAP 2002-06-30 00:00:00 Completed [facility] MMR 2002-06-30 00:00:00 Completed [facility] Polio (IPV/OPV) 2002-06-30 00:00:00 Completed [facility] DTAP 2002-06-30 00:00:00 Completed [facility] MMR 2002-06-30 00:00:00 Completed [facility] Polio (IPV/OPV) 2002-06-30 00:00:00 Completed [facility] DTAP 2002-06-30 00:00:00 Completed [facility] MMR 2002-06-30 00:00:00 Completed [facility] Polio (IPV/OPV) 2002-06-30 00:00:00 Completed [facility] DTAP 2002-06-30 00:00:00 Completed [facility] MMR 2002-06-30 00:00:00 Completed [facility] Polio (IPV/OPV) 2002-06-30 00:00:00 Completed [facility] DTAP 2002-06-30 00:00:00 Completed [facility] MMR 2002-06-30 00:00:00 Completed [facility] Polio (IPV/OPV) 2002-06-30 00:00:00 Completed [facility] DTAP 2002-06-30 00:00:00 Completed MMR 2002-06-30 00:00:00 Completed Polio (IPV/OPV) 2002-06-30 00:00:00 Completed DTAP 2002-06-30 00:00:00 Completed MMR 2002-06-30 00:00:00 Completed Polio (IPV/OPV) 2002-06-30 00:00:00 Completed HEPATITIS A 2001-01-17 00:00:00 Completed [facility] Pneumococcal 7 Conjugate, PCV7 (Prevnar7) 2001-01-17 00:00:00 Completed [facility] HEPATITIS A 2001-01-17 00:00:00 Completed [facility] Pneumococcal 7 Conjugate, PCV7 (Prevnar7) 2001-01-17 00:00:00 Completed [facility] HEPATITIS A 2001-01-17 00:00:00 Completed [facility] Pneumococcal 7 Conjugate, PCV7 (Prevnar7) 2001-01-17 00:00:00 Completed [facility] HEPATITIS A 2001-01-17 00:00:00 Completed [facility] Pneumococcal 7 Conjugate, PCV7 (Prevnar7) 2001-01-17 00:00:00 Completed [facility] HEPATITIS A 2001-01-17 00:00:00 Completed [facility] Pneumococcal 7 Conjugate, PCV7 (Prevnar7) 2001-01-17 00:00:00 Completed [facility] HEPATITIS A 2001-01-17 00:00:00 Completed [facility] Pneumococcal 7 Conjugate, PCV7 (Prevnar7) 2001-01-17 00:00:00 Completed [facility] HEPATITIS A 2001-01-17 00:00:00 Completed [facility] Pneumococcal 7 Conjugate, PCV7 (Prevnar7) 2001-01-17 00:00:00 Completed [facility] HEPATITIS A 2001-01-17 00:00:00 Completed [facility] Pneumococcal 7 Conjugate, PCV7 (Prevnar7) 2001-01-17 00:00:00 Completed [facility] HEPATITIS A 2001-01-17 00:00:00 Completed [facility] Pneumococcal 7 Conjugate, PCV7 (Prevnar7) 2001-01-17 00:00:00 Completed [facility] HEPATITIS A 2001-01-17 00:00:00 Completed [facility] Pneumococcal 7 Conjugate, PCV7 (Prevnar7) 2001-01-17 00:00:00 Completed [facility] HEPATITIS A 2001-01-17 00:00:00 Completed [facility] Pneumococcal 7 Conjugate, PCV7 (Prevnar7) 2001-01-17 00:00:00 Completed [facility] HEPATITIS A 2001-01-17 00:00:00 Completed [facility] Pneumococcal 7 Conjugate, PCV7 (Prevnar7) 2001-01-17 00:00:00 Completed [facility] HEPATITIS A 2001-01-17 00:00:00 Completed [facility] Pneumococcal 7 Conjugate, PCV7 (Prevnar7) 2001-01-17 00:00:00 Completed [facility] HEPATITIS A 2001-01-17 00:00:00 Completed [facility] Pneumococcal 7 Conjugate, PCV7 (Prevnar7) 2001-01-17 00:00:00 Completed [facility] HEPATITIS A 2001-01-17 00:00:00 Completed [facility] Pneumococcal 7 Conjugate, PCV7 (Prevnar7) 2001-01-17 00:00:00 Completed [facility] HEPATITIS A 2001-01-17 00:00:00 Completed [facility] Pneumococcal 7 Conjugate, PCV7 (Prevnar7) 2001-01-17 00:00:00 Completed [facility] HEPATITIS A 2001-01-17 00:00:00 Completed [facility] Pneumococcal 7 Conjugate, PCV7 (Prevnar7) 2001-01-17 00:00:00 Completed [facility] HEPATITIS A 2001-01-17 00:00:00 Completed [facility] Pneumococcal 7 Conjugate, PCV7 (Prevnar7) 2001-01-17 00:00:00 Completed [facility] HEPATITIS A 2001-01-17 00:00:00 Completed Pneumococcal 7 Conjugate, PCV7 (Prevnar7) 2001-01-17 00:00:00 Completed HEPATITIS A 2001-01-17 00:00:00 Completed Pneumococcal 7 Conjugate, PCV7 (Prevnar7) 2001-01-17 00:00:00 Completed DTAP 1998-12-09 00:00:00 Completed [facility] HIB 4 Dose Schedule 1998-12-09 00:00:00 Completed [facility] Polio (IPV/OPV) 1998-12-09 00:00:00 Completed [facility] DTAP 1998-12-09 00:00:00 Completed [facility] HIB 4 Dose Schedule 1998-12-09 00:00:00 Completed [facility] Polio (IPV/OPV) 1998-12-09 00:00:00 Completed [facility] DTAP 1998-12-09 00:00:00 Completed [facility] HIB 4 Dose Schedule 1998-12-09 00:00:00 Completed [facility] Polio (IPV/OPV) 1998-12-09 00:00:00 Completed [facility] DTAP 1998-12-09 00:00:00 Completed [facility] HIB 4 Dose Schedule 1998-12-09 00:00:00 Completed [facility] Polio (IPV/OPV) 1998-12-09 00:00:00 Completed [facility] DTAP 1998-12-09 00:00:00 Completed [facility] HIB 4 Dose Schedule 1998-12-09 00:00:00 Completed [facility] Polio (IPV/OPV) 1998-12-09 00:00:00 Completed [facility] DTAP 1998-12-09 00:00:00 Completed [facility] HIB 4 Dose Schedule 1998-12-09 00:00:00 Completed [facility] Polio (IPV/OPV) 1998-12-09 00:00:00 Completed [facility] DTAP 1998-12-09 00:00:00 Completed [facility] HIB 4 Dose Schedule 1998-12-09 00:00:00 Completed [facility] Polio (IPV/OPV) 1998-12-09 00:00:00 Completed [facility] DTAP 1998-12-09 00:00:00 Completed [facility] HIB 4 Dose Schedule 1998-12-09 00:00:00 Completed [facility] Polio (IPV/OPV) 1998-12-09 00:00:00 Completed [facility] DTAP 1998-12-09 00:00:00 Completed [facility] HIB 4 Dose Schedule 1998-12-09 00:00:00 Completed [facility] Polio (IPV/OPV) 1998-12-09 00:00:00 Completed [facility] DTAP 1998-12-09 00:00:00 Completed [facility] HIB 4 Dose Schedule 1998-12-09 00:00:00 Completed [facility] Polio (IPV/OPV) 1998-12-09 00:00:00 Completed [facility] DTAP 1998-12-09 00:00:00 Completed [facility] HIB 4 Dose Schedule 1998-12-09 00:00:00 Completed [facility] Polio (IPV/OPV) 1998-12-09 00:00:00 Completed [facility] DTAP 1998-12-09 00:00:00 Completed [facility] HIB 4 Dose Schedule 1998-12-09 00:00:00 Completed [facility] Polio (IPV/OPV) 1998-12-09 00:00:00 Completed [facility] DTAP 1998-12-09 00:00:00 Completed [facility] HIB 4 Dose Schedule 1998-12-09 00:00:00 Completed [facility] Polio (IPV/OPV) 1998-12-09 00:00:00 Completed [facility] DTAP 1998-12-09 00:00:00 Completed [facility] HIB 4 Dose Schedule 1998-12-09 00:00:00 Completed [facility] Polio (IPV/OPV) 1998-12-09 00:00:00 Completed [facility] DTAP 1998-12-09 00:00:00 Completed [facility] HIB 4 Dose Schedule 1998-12-09 00:00:00 Completed [facility] Polio (IPV/OPV) 1998-12-09 00:00:00 Completed [facility] DTAP 1998-12-09 00:00:00 Completed [facility] HIB 4 Dose Schedule 1998-12-09 00:00:00 Completed [facility] Polio (IPV/OPV) 1998-12-09 00:00:00 Completed [facility] DTAP 1998-12-09 00:00:00 Completed [facility] HIB 4 Dose Schedule 1998-12-09 00:00:00 Completed [facility] Polio (IPV/OPV) 1998-12-09 00:00:00 Completed [facility] DTAP 1998-12-09 00:00:00 Completed [facility] HIB 4 Dose Schedule 1998-12-09 00:00:00 Completed [facility] Polio (IPV/OPV) 1998-12-09 00:00:00 Completed [facility] DTAP 1998-12-09 00:00:00 Completed HIB 4 Dose Schedule 1998-12-09 00:00:00 Completed Polio (IPV/OPV) 1998-12-09 00:00:00 Completed DTAP 1998-12-09 00:00:00 Completed HIB 4 Dose Schedule 1998-12-09 00:00:00 Completed Polio (IPV/OPV) 1998-12-09 00:00:00 Completed MMR 1998-07-20 00:00:00 Completed [facility] Polio (IPV/OPV) 1998-07-20 00:00:00 Completed [facility] Varicella (varivax)(chicken pox) 1998-07-20 00:00:00 Completed [facility] MMR 1998-07-20 00:00:00 Completed [facility] Polio (IPV/OPV) 1998-07-20 00:00:00 Completed [facility] Varicella (varivax)(chicken pox) 1998-07-20 00:00:00 Completed [facility] MMR 1998-07-20 00:00:00 Completed [facility] Polio (IPV/OPV) 1998-07-20 00:00:00 Completed [facility] Varicella (varivax)(chicken pox) 1998-07-20 00:00:00 Completed [facility] MMR 1998-07-20 00:00:00 Completed [facility] Polio (IPV/OPV) 1998-07-20 00:00:00 Completed [facility] Varicella (varivax)(chicken pox) 1998-07-20 00:00:00 Completed [facility] MMR 1998-07-20 00:00:00 Completed [facility] Polio (IPV/OPV) 1998-07-20 00:00:00 Completed [facility] Varicella (varivax)(chicken pox) 1998-07-20 00:00:00 Completed [facility] MMR 1998-07-20 00:00:00 Completed [facility] Polio (IPV/OPV) 1998-07-20 00:00:00 Completed [facility] Varicella (varivax)(chicken pox) 1998-07-20 00:00:00 Completed [facility] MMR 1998-07-20 00:00:00 Completed [facility] Polio (IPV/OPV) 1998-07-20 00:00:00 Completed [facility] Varicella (varivax)(chicken pox) 1998-07-20 00:00:00 Completed [facility] MMR 1998-07-20 00:00:00 Completed [facility] Polio (IPV/OPV) 1998-07-20 00:00:00 Completed [facility] Varicella (varivax)(chicken pox) 1998-07-20 00:00:00 Completed [facility] MMR 1998-07-20 00:00:00 Completed [facility] Polio (IPV/OPV) 1998-07-20 00:00:00 Completed [facility] Varicella (varivax)(chicken pox) 1998-07-20 00:00:00 Completed [facility] MMR 1998-07-20 00:00:00 Completed [facility] Polio (IPV/OPV) 1998-07-20 00:00:00 Completed [facility] Varicella (varivax)(chicken pox) 1998-07-20 00:00:00 Completed [facility] MMR 1998-07-20 00:00:00 Completed [facility] Polio (IPV/OPV) 1998-07-20 00:00:00 Completed [facility] Varicella (varivax)(chicken pox) 1998-07-20 00:00:00 Completed [facility] MMR 1998-07-20 00:00:00 Completed [facility] Polio (IPV/OPV) 1998-07-20 00:00:00 Completed [facility] Varicella (varivax)(chicken pox) 1998-07-20 00:00:00 Completed [facility] MMR 1998-07-20 00:00:00 Completed [facility] Polio (IPV/OPV) 1998-07-20 00:00:00 Completed [facility] Varicella (varivax)(chicken pox) 1998-07-20 00:00:00 Completed [facility] MMR 1998-07-20 00:00:00 Completed [facility] Polio (IPV/OPV) 1998-07-20 00:00:00 Completed [facility] Varicella (varivax)(chicken pox) 1998-07-20 00:00:00 Completed [facility] MMR 1998-07-20 00:00:00 Completed [facility] Polio (IPV/OPV) 1998-07-20 00:00:00 Completed [facility] Varicella (varivax)(chicken pox) 1998-07-20 00:00:00 Completed [facility] MMR 1998-07-20 00:00:00 Completed [facility] Polio (IPV/OPV) 1998-07-20 00:00:00 Completed [facility] Varicella (varivax)(chicken pox) 1998-07-20 00:00:00 Completed [facility] MMR 1998-07-20 00:00:00 Completed [facility] Polio (IPV/OPV) 1998-07-20 00:00:00 Completed [facility] Varicella (varivax)(chicken pox) 1998-07-20 00:00:00 Completed [facility] MMR 1998-07-20 00:00:00 Completed [facility] Polio (IPV/OPV) 1998-07-20 00:00:00 Completed [facility] Varicella (varivax)(chicken pox) 1998-07-20 00:00:00 Completed [facility] MMR 1998-07-20 00:00:00 Completed Polio (IPV/OPV) 1998-07-20 00:00:00 Completed Varicella (varivax)(chicken pox) 1998-07-20 00:00:00 Completed MMR 1998-07-20 00:00:00 Completed Polio (IPV/OPV) 1998-07-20 00:00:00 Completed Varicella (varivax)(chicken pox) 1998-07-20 00:00:00 Completed DTAP 1998-05-20 00:00:00 Completed [facility] HIB 4 Dose Schedule 1998-05-20 00:00:00 Completed [facility] Hep B, Adol or Pedi Dosage 1998-05-20 00:00:00 Completed [facility] DTAP 1998-05-20 00:00:00 Completed [facility] HIB 4 Dose Schedule 1998-05-20 00:00:00 Completed [facility] Hep B, Adol or Pedi Dosage 1998-05-20 00:00:00 Completed [facility] DTAP 1998-05-20 00:00:00 Completed [facility] HIB 4 Dose Schedule 1998-05-20 00:00:00 Completed [facility] Hep B, Adol or Pedi Dosage 1998-05-20 00:00:00 Completed [facility] DTAP 1998-05-20 00:00:00 Completed [facility] HIB 4 Dose Schedule 1998-05-20 00:00:00 Completed [facility] Hep B, Adol or Pedi Dosage 1998-05-20 00:00:00 Completed [facility] DTAP 1998-05-20 00:00:00 Completed [facility] HIB 4 Dose Schedule 1998-05-20 00:00:00 Completed [facility] Hep B, Adol or Pedi Dosage 1998-05-20 00:00:00 Completed [facility] DTAP 1998-05-20 00:00:00 Completed [facility] HIB 4 Dose Schedule 1998-05-20 00:00:00 Completed [facility] Hep B, Adol or Pedi Dosage 1998-05-20 00:00:00 Completed [facility] DTAP 1998-05-20 00:00:00 Completed [facility] HIB 4 Dose Schedule 1998-05-20 00:00:00 Completed [facility] Hep B, Adol or Pedi Dosage 1998-05-20 00:00:00 Completed [facility] DTAP 1998-05-20 00:00:00 Completed [facility] HIB 4 Dose Schedule 1998-05-20 00:00:00 Completed [facility] Hep B, Adol or Pedi Dosage 1998-05-20 00:00:00 Completed [facility] DTAP 1998-05-20 00:00:00 Completed [facility] HIB 4 Dose Schedule 1998-05-20 00:00:00 Completed [facility] Hep B, Adol or Pedi Dosage 1998-05-20 00:00:00 Completed [facility] DTAP 1998-05-20 00:00:00 Completed [facility] HIB 4 Dose Schedule 1998-05-20 00:00:00 Completed [facility] Hep B, Adol or Pedi Dosage 1998-05-20 00:00:00 Completed [facility] DTAP 1998-05-20 00:00:00 Completed [facility] HIB 4 Dose Schedule 1998-05-20 00:00:00 Completed [facility] Hep B, Adol or Pedi Dosage 1998-05-20 00:00:00 Completed [facility] DTAP 1998-05-20 00:00:00 Completed [facility] HIB 4 Dose Schedule 1998-05-20 00:00:00 Completed [facility] Hep B, Adol or Pedi Dosage 1998-05-20 00:00:00 Completed [facility] DTAP 1998-05-20 00:00:00 Completed [facility] HIB 4 Dose Schedule 1998-05-20 00:00:00 Completed [facility] Hep B, Adol or Pedi Dosage 1998-05-20 00:00:00 Completed [facility] DTAP 1998-05-20 00:00:00 Completed [facility] HIB 4 Dose Schedule 1998-05-20 00:00:00 Completed [facility] Hep B, Adol or Pedi Dosage 1998-05-20 00:00:00 Completed [facility] DTAP 1998-05-20 00:00:00 Completed [facility] HIB 4 Dose Schedule 1998-05-20 00:00:00 Completed [facility] Hep B, Adol or Pedi Dosage 1998-05-20 00:00:00 Completed [facility] DTAP 1998-05-20 00:00:00 Completed [facility] HIB 4 Dose Schedule 1998-05-20 00:00:00 Completed [facility] Hep B, Adol or Pedi Dosage 1998-05-20 00:00:00 Completed [facility] DTAP 1998-05-20 00:00:00 Completed [facility] HIB 4 Dose Schedule 1998-05-20 00:00:00 Completed [facility] Hep B, Adol or Pedi Dosage 1998-05-20 00:00:00 Completed [facility] DTAP 1998-05-20 00:00:00 Completed [facility] HIB 4 Dose Schedule 1998-05-20 00:00:00 Completed [facility] Hep B, Adol or Pedi Dosage 1998-05-20 00:00:00 Completed [facility] DTAP 1998-05-20 00:00:00 Completed HIB 4 Dose Schedule 1998-05-20 00:00:00 Completed Hep B, Adol or Pedi Dosage 1998-05-20 00:00:00 Completed DTAP 1998-05-20 00:00:00 Completed HIB 4 Dose Schedule 1998-05-20 00:00:00 Completed Hep B, Adol or Pedi Dosage 1998-05-20 00:00:00 Completed DTAP 1998-03-23 00:00:00 Completed [facility] HIB 4 Dose Schedule 1998-03-23 00:00:00 Completed [facility] Hep B, Adol or Pedi Dosage 1998-03-23 00:00:00 Completed [facility] Polio (IPV/OPV) 1998-03-23 00:00:00 Completed [facility] DTAP 1998-03-23 00:00:00 Completed [facility] HIB 4 Dose Schedule 1998-03-23 00:00:00 Completed [facility] Hep B, Adol or Pedi Dosage 1998-03-23 00:00:00 Completed [facility] Polio (IPV/OPV) 1998-03-23 00:00:00 Completed [facility] DTAP 1998-03-23 00:00:00 Completed [facility] HIB 4 Dose Schedule 1998-03-23 00:00:00 Completed [facility] Hep B, Adol or Pedi Dosage 1998-03-23 00:00:00 Completed [facility] Polio (IPV/OPV) 1998-03-23 00:00:00 Completed [facility] DTAP 1998-03-23 00:00:00 Completed [facility] HIB 4 Dose Schedule 1998-03-23 00:00:00 Completed [facility] Hep B, Adol or Pedi Dosage 1998-03-23 00:00:00 Completed [facility] Polio (IPV/OPV) 1998-03-23 00:00:00 Completed [facility] DTAP 1998-03-23 00:00:00 Completed [facility] HIB 4 Dose Schedule 1998-03-23 00:00:00 Completed [facility] Hep B, Adol or Pedi Dosage 1998-03-23 00:00:00 Completed [facility] Polio (IPV/OPV) 1998-03-23 00:00:00 Completed [facility] DTAP 1998-03-23 00:00:00 Completed [facility] HIB 4 Dose Schedule 1998-03-23 00:00:00 Completed [facility] Hep B, Adol or Pedi Dosage 1998-03-23 00:00:00 Completed [facility] Polio (IPV/OPV) 1998-03-23 00:00:00 Completed [facility] DTAP 1998-03-23 00:00:00 Completed [facility] HIB 4 Dose Schedule 1998-03-23 00:00:00 Completed [facility] Hep B, Adol or Pedi Dosage 1998-03-23 00:00:00 Completed [facility] Polio (IPV/OPV) 1998-03-23 00:00:00 Completed [facility] DTAP 1998-03-23 00:00:00 Completed [facility] [facility] 4 Dose Schedule 1998-03-23 00:00:00 Completed [facility] Hep B, Adol or Pedi Dosage 1998-03-23 00:00:00 Completed [facility] Polio (IPV/OPV) 1998-03-23 00:00:00 Completed [facility] DTAP 1998-03-23 00:00:00 Completed [facility] HIB 4 Dose Schedule 1998-03-23 00:00:00 Completed [facility] Hep B, Adol or Pedi Dosage 1998-03-23 00:00:00 Completed [facility] Polio (IPV/OPV) 1998-03-23 00:00:00 Completed [facility] DTAP 1998-03-23 00:00:00 Completed [facility] HIB 4 Dose Schedule 1998-03-23 00:00:00 Completed [facility] Hep B, Adol or Pedi Dosage 1998-03-23 00:00:00 Completed [facility] Polio (IPV/OPV) 1998-03-23 00:00:00 Completed [facility] DTAP 1998-03-23 00:00:00 Completed [facility] HIB 4 Dose Schedule 1998-03-23 00:00:00 Completed [facility] Hep B, Adol or Pedi Dosage 1998-03-23 00:00:00 Completed [facility] Polio (IPV/OPV) 1998-03-23 00:00:00 Completed [facility] DTAP 1998-03-23 00:00:00 Completed [facility] HIB 4 Dose Schedule 1998-03-23 00:00:00 Completed [facility] Hep B, Adol or Pedi Dosage 1998-03-23 00:00:00 Completed [facility] Polio (IPV/OPV) 1998-03-23 00:00:00 Completed [facility] DTAP 1998-03-23 00:00:00 Completed [facility] HIB 4 Dose Schedule 1998-03-23 00:00:00 Completed [facility] Hep B, Adol or Pedi Dosage 1998-03-23 00:00:00 Completed [facility] Polio (IPV/OPV) 1998-03-23 00:00:00 Completed [facility] DTAP 1998-03-23 00:00:00 Completed [facility] HIB 4 Dose Schedule 1998-03-23 00:00:00 Completed [facility] Hep B, Adol or Pedi Dosage 1998-03-23 00:00:00 Completed [facility] Polio (IPV/OPV) 1998-03-23 00:00:00 Completed [facility] DTAP 1998-03-23 00:00:00 Completed [facility] HIB 4 Dose Schedule 1998-03-23 00:00:00 Completed [facility] Hep B, Adol or Pedi Dosage 1998-03-23 00:00:00 Completed [facility] Polio (IPV/OPV) 1998-03-23 00:00:00 Completed [facility] DTAP 1998-03-23 00:00:00 Completed [facility] HIB 4 Dose Schedule 1998-03-23 00:00:00 Completed [facility] Hep B, Adol or Pedi Dosage 1998-03-23 00:00:00 Completed [facility] Polio (IPV/OPV) 1998-03-23 00:00:00 Completed [facility] DTAP 1998-03-23 00:00:00 Completed [facility] HIB 4 Dose Schedule 1998-03-23 00:00:00 Completed [facility] Hep B, Adol or Pedi Dosage 1998-03-23 00:00:00 Completed [facility] Polio (IPV/OPV) 1998-03-23 00:00:00 Completed [facility] DTAP 1998-03-23 00:00:00 Completed [facility] HIB 4 Dose Schedule 1998-03-23 00:00:00 Completed [facility] Hep B, Adol or Pedi Dosage 1998-03-23 00:00:00 Completed [facility] Polio (IPV/OPV) 1998-03-23 00:00:00 Completed [facility] DTAP 1998-03-23 00:00:00 Completed [facility]IB 4 Dose Schedule 1998-03-23 00:00:00 Completed Hep B, Adol or Pedi Dosage 1998-03-23 00:00:00 Completed Polio (IPV/OPV) 1998-03-23 00:00:00 Completed DTAP 1998-03-23 00:00:00 Completed HIB 4 Dose Schedule 1998-03-23 00:00:00 Completed Hep B, Adol or Pedi Dosage 1998-03-23 00:00:00 Completed Polio (IPV/OPV) 1998-03-23 00:00:00 Completed DTAP 1997 00:00:00 Completed [facility]IB 4 Dose Schedule 1997 00:00:00 Completed [facility] Hep B, Adol or Pedi Dosage 1997 00:00:00 Completed [facility] Polio (IPV/OPV) 1997 00:00:00 Completed [facility] DTAP 1997 00:00:00 Completed [facility] HIB 4 Dose Schedule 1997 00:00:00 Completed [facility] Hep B, Adol or Pedi Dosage 1997 00:00:00 Completed [facility] Polio (IPV/OPV) 1997 00:00:00 Completed [facility] DTAP 1997 00:00:00 Completed [facility] HIB 4 Dose Schedule 1997 00:00:00 Completed [facility] Hep B, Adol or Pedi Dosage 1997 00:00:00 Completed [facility] Polio (IPV/OPV) 1997 00:00:00 Completed [facility] DTAP 1997 00:00:00 Completed [facility] HIB 4 Dose Schedule 1997 00:00:00 Completed [facility] Hep B, Adol or Pedi Dosage 1997 00:00:00 Completed [facility] Polio (IPV/OPV) 1997 00:00:00 Completed [facility] DTAP 1997 00:00:00 Completed [facility] HIB 4 Dose Schedule 1997 00:00:00 Completed [facility] Hep B, Adol or Pedi Dosage 1997 00:00:00 Completed [facility] Polio (IPV/OPV) 1997 00:00:00 Completed [facility] DTAP 1997 00:00:00 Completed [facility] HIB 4 Dose Schedule 1997 00:00:00 Completed [facility] Hep B, Adol or Pedi Dosage 1997 00:00:00 Completed [facility] Polio (IPV/OPV) 1997 00:00:00 Completed [facility] DTAP 1997 00:00:00 Completed [facility] HIB 4 Dose Schedule 1997 00:00:00 Completed [facility] Hep B, Adol or Pedi Dosage 1997 00:00:00 Completed [facility] Polio (IPV/OPV) 1997 00:00:00 Completed [facility] DTAP 1997 00:00:00 Completed [facility] HIB 4 Dose Schedule 1997 00:00:00 Completed [facility] Hep B, Adol or Pedi Dosage 1997 00:00:00 Completed [facility] Polio (IPV/OPV) 1997 00:00:00 Completed [facility] DTAP 1997 00:00:00 Completed [facility] HIB 4 Dose Schedule 1997 00:00:00 Completed [facility] Hep B, Adol or Pedi Dosage 1997 00:00:00 Completed [facility] Polio (IPV/OPV) 1997 00:00:00 Completed [facility] DTAP 1997 00:00:00 Completed [facility] HIB 4 Dose Schedule 1997 00:00:00 Completed [facility] Hep B, Adol or Pedi Dosage 1997 00:00:00 Completed [facility] Polio (IPV/OPV) 1997 00:00:00 Completed [facility] DTAP 1997 00:00:00 Completed [facility] HIB 4 Dose Schedule 1997 00:00:00 Completed [facility] Hep B, Adol or Pedi Dosage 1997 00:00:00 Completed [facility] Polio (IPV/OPV) 1997 00:00:00 Completed [facility] DTAP 1997 00:00:00 Completed [facility] HIB 4 Dose Schedule 1997 00:00:00 Completed [facility] Hep B, Adol or Pedi Dosage 1997 00:00:00 Completed [facility] Polio (IPV/OPV) 1997 00:00:00 Completed [facility] DTAP 1997 00:00:00 Completed [facility] HIB 4 Dose Schedule 1997 00:00:00 Completed [facility] Hep B, Adol or Pedi Dosage 1997 00:00:00 Completed [facility] Polio (IPV/OPV) 1997 00:00:00 Completed [facility] DTAP 1997 00:00:00 Completed [facility] HIB 4 Dose Schedule 1997 00:00:00 Completed [facility] Hep B, Adol or Pedi Dosage 1997 00:00:00 Completed [facility] Polio (IPV/OPV) 1997 00:00:00 Completed [facility] DTAP 1997 00:00:00 Completed [facility] HIB 4 Dose Schedule 1997 00:00:00 Completed [facility] Hep B, Adol or Pedi Dosage 1997 00:00:00 Completed [facility] Polio (IPV/OPV) 1997 00:00:00 Completed [facility] DTAP 1997 00:00:00 Completed [facility] HIB 4 Dose Schedule 1997 00:00:00 Completed [facility] Hep B, Adol or Pedi Dosage 1997 00:00:00 Completed [facility] Polio (IPV/OPV) 1997 00:00:00 Completed [facility] DTAP 1997 00:00:00 Completed [facility] HIB 4 Dose Schedule 1997 00:00:00 Completed [facility] Hep B, Adol or Pedi Dosage 1997 00:00:00 Completed [facility] Polio (IPV/OPV) 1997 00:00:00 Completed [facility] DTAP 1997 00:00:00 Completed [facility] HIB 4 Dose Schedule 1997 00:00:00 Completed [facility] Hep B, Adol or Pedi Dosage 1997 00:00:00 Completed [facility] Polio (IPV/OPV) 1997 00:00:00 Completed [facility] DTAP 1997 00:00:00 Completed [facility] HIB 4 Dose Schedule 1997 00:00:00 Completed Hep B, Adol or Pedi Dosage 1997 00:00:00 Completed Polio (IPV/OPV) 1997 00:00:00 Completed DTAP 1997 00:00:00 Completed [facility] HIB 4 Dose Schedule 1997 00:00:00 Completed Hep B, Adol or Pedi Dosage 1997 00:00:00 Completed Polio (IPV/OPV) 1997 00:00:00 Completed Influenza Virus Vaccine Quad .5 mL IM 6+ MO (FLUZONE/FLULAVAL/FL UARIX) Unknown Completed [facility] TDAP Unknown [facility]pleted [facility] DTAP Unknown Completed [facility] HIB 4 [facility]ose Schedule Unknown Completed [facility] HEPATITIS A Unknown Completed [facility] Hep B, Adol or Pedi Dosage Unknown Completed [facility] HPV Unknown Completed [facility] Meningococcal Polysaccharide (groups A, C, Y and W-135) conjugate vaccine (MCV4P) Unknown Completed [facility] MMR Unknown Completed [facility] Polio (IPV/OPV) Unknown Completed [facility] Varicella (varivax)(chicken pox) Unknown Completed [facility] Pneumococcal 7 Conjugate, PCV7 (Prevnar7) Unknown Completed [facility] Influenza Virus Vaccine Quad .5 mL IM 6+ MO (FLUZONE/FLULAVAL/FL UARIX) Unknown Completed [facility] TDAP Unknown Completed [facility] DTAP Unknown Completed [facility] HIB 4 Dose Schedule Unknown Completed [facility] HEPATITIS A Unknown Completed [facility] Hep B, Adol or Pedi Dosage Unknown Completed [facility] HPV Unknown Completed [facility] Meningococcal Polysaccharide (groups A, C, Y and W-135) conjugate vaccine (MCV4P) Unknown Completed [facility] MMR Unknown Completed [facility] Polio (IPV/OPV) Unknown Completed [facility] Varicella (varivax)(chicken pox) Unknown Completed [facility] Pneumococcal 7 Conjugate, PCV7 (Prevnar7) Unknown Completed [facility] Influenza Virus Vaccine Quad .5 mL IM 6+ MO (FLUZONE/FLULAVAL/FL UARIX) Unknown Completed [facility] TDAP Unknown Completed [facility] DTAP Unknown Completed [facility] HIB 4 Dose Schedule Unknown Completed [facility] HEPATITIS A Unknown Completed [facility] Hep B, Adol or Pedi Dosage Unknown Completed [facility] HPV Unknown Completed [facility] Meningococcal Polysaccharide (groups A, C, Y and W-135) conjugate vaccine (MCV4P) Unknown Completed [facility] MMR Unknown Completed [facility] Polio (IPV/OPV) Unknown Completed [facility] Varicella (varivax)(chicken pox) Unknown Completed [facility] Pneumococcal 7 Conjugate, PCV7 (Prevnar7) Unknown Completed [facility] Influenza Virus Vaccine Quad .5 mL IM 6+ MO (FLUZONE/FLULAVAL/FL UARIX) Unknown Completed [facility] TDAP Unknown Completed [facility] DTAP Unknown Completed [facility] HIB 4 Dose Schedule Unknown Completed [facility] HEPATITIS A Unknown [facility], Ad[facility] or Pedi Dosage Unknown Completed [facility] HPV Unknown Completed [facility] Meningococcal Polysaccharide (groups A, C, Y and W-135) conjugate vaccine (MCV4P) Unknown Completed [facility] MMR Unknown Completed [facility] Polio (IPV/OPV) Unknown Completed [facility] Varicella (varivax)(chicken pox) Unknown Completed [facility] Pneumococcal 7 Conjugate, PCV7 (Prevnar7) Unknown Completed [facility] Influenza Virus Vaccine Quad .5 mL IM 6+ MO (FLUZONE/FLULAVAL/FL UARIX) Unknown Completed [facility] TDAP Unknown Completed [facility] DTAP Unknown Completed [facility] HIB 4 [facility]ose Schedule Unknown Completed [facility] HEPATITIS A Unknown Completed [facility] Hep B, Adol or Pedi Dosage Unknown Completed [facility] HPV Unknown Completed [facility] Meningococcal Polysaccharide (groups A, C, Y and W-135) conjugate vaccine (MCV4P) Unknown Completed [facility] MMR Unknown Completed [facility] Polio (IPV/OPV) Unknown Completed [facility] Varicella (varivax)(chicken pox) Unknown Completed [facility] Pneumococcal 7 Conjugate, PCV7 (Prevnar7) Unknown Completed [facility] Influenza Virus Vaccine Quad .5 mL IM 6+ MO (FLUZONE/FLULAVAL/FL UARIX) Unknown Completed [facility] TDAP Unknown Completed [facility] DTAP Unknown Completed [facility] HIB 4 Dose Schedule Unknown Completed [facility] HEPATITIS A Unknown Completed [facility] Hep B, Adol or Pedi Dosage Unknown Completed [facility] HPV Unknown Completed [facility] Meningococcal Polysaccharide (groups A, C, Y and W-135) conjugate vaccine (MCV4P) Unknown Completed [facility] MMR Unknown Completed [facility] Polio (IPV/OPV) Unknown Completed [facility] Varicella (varivax)(chicken pox) Unknown Completed [facility] Pneumococcal 7 Conjugate, PCV7 (Prevnar7) Unknown Completed [facility] Influenza Virus Vaccine Quad .5 mL IM 6+ MO (FLUZONE/FLULAVAL/FL UARIX) Unknown Completed [facility] TDAP Unknown Completed [facility] DTAP Unknown Completed [facility] HIB 4 Dose Schedule Unknown Completed [facility] HEPATITIS A Unknown Completed [facility] Hep B, Adol or Pedi Dosage Unknown Completed [facility] HPV Unknown Completed [facility] Meningococcal Polysaccharide (groups A, C, Y and W-135) conjugate vaccine (MCV4P) Unknown Completed [facility] MMR Unknown Completed [facility] Polio (IPV/OPV) Unknown Completed [facility] Varicella (varivax)(chicken pox) Unknown Completed [facility] Pneumococcal 7 Conjugate, PCV7 (Prevnar7) Unknown Completed [facility] Influenza Virus Vaccine Quad .5 mL IM 6+ MO (FLUZONE/FLULAVAL/FL UARIX) Unknown Completed [facility] TDAP Unknown Completed [facility] DTAP Unknown Completed [facility] HIB 4 Dose Schedule Unknown Completed [facility] HEPATITIS A Unknown Completed [facility] Hep B, Adol or Pedi Dosage Unknown Completed [facility] HPV Unknown Completed [facility] Meningococcal Polysaccharide (groups A, C, Y and W-135) conjugate vaccine (MCV4P) Unknown Completed [facility] MMR Unknown Completed [facility] Polio (IPV/OPV) Unknown Completed [facility] Varicella (varivax)(chicken pox) Unknown Completed [facility] Pneumococcal 7 Conjugate, PCV7 (Prevnar7) Unknown Completed [facility] Influenza Virus Vaccine Quad .5 mL IM 6+ MO (FLUZONE/FLULAVAL/FL UARIX) Unknown Completed [facility] TDAP Unknown Completed [facility] DTAP Unknown Completed [facility] HIB 4 Dose Schedule Unknown Completed [facility] HEPATITIS A Unknown Completed [facility] Hep B, Adol or Pedi Dosage Unknown Completed [facility] HPV Unknown Completed [facility] Meningococcal Polysaccharide (groups A, C, Y and W-135) conjugate vaccine (MCV4P) Unknown Completed [facility] MMR Unknown Completed [facility] Polio (IPV/OPV) Unknown Completed [facility] Varicella (varivax)(chicken pox) Unknown Completed [facility] Pneumococcal 7 Conjugate, PCV7 (Prevnar7) Unknown Completed [facility] Influenza Virus Vaccine Quad IM, Preserv and ABX Free 6 MO-64 YRS (FLUCELVAX) Unknown Completed [facility] Influenza Virus Vaccine Quad .5 mL IM 6+ MO (FLUZONE/FLULAVAL/FL UARIX) Unknown Completed [facility] TDAP Unknown Completed [facility] DTAP Unknown Completed [facility] HIB 4 Dose Schedule Unknown Completed [facility] HEPATITIS A Unknown Completed [facility] Hep B, Adol or Pedi Dosage Unknown Completed [facility] HPV Unknown Completed [facility] Meningococcal Polysaccharide (groups A, C, Y and W-135) conjugate vaccine (MCV4P) Unknown Completed [facility] MMR Unknown Completed [facility] Polio (IPV/OPV) Unknown Completed [facility] Varicella (varivax)(chicken pox) Unknown Completed [facility] Pneumococcal 7 Conjugate, PCV7 (Prevnar7) Unknown Completed [facility] Influenza Virus Vaccine Quad IM, Preserv and ABX Free 6 MO-64 YRS (FLUCELVAX) Unknown Completed [facility] Influenza Virus Vaccine Quad .5 mL IM 6+ MO (FLUZONE/FLULAVAL/FL UARIX) Unknown Completed [facility] TDAP Unknown Completed [facility] DTAP Unknown Completed [facility] HIB 4 Dose Schedule Unknown Completed [facility] HEPATITIS A Unknown Completed [facility] Hep B, Adol or Pedi Dosage Unknown Completed [facility] HPV Unknown Completed [facility] Meningococcal Polysaccharide (groups A, C, Y and W-135) conjugate vaccine (MCV4P) Unknown Completed [facility] MMR Unknown Completed [facility] Polio (IPV/OPV) Unknown Completed [facility] Varicella (varivax)(chicken pox) Unknown Completed [facility] Pneumococcal 7 Conjugate, PCV7 (Prevnar7) Unknown Completed [facility] Influenza Virus Vaccine Quad IM, Preserv and ABX Free 6 MO-64 YRS (FLUCELVAX) Unknown Completed [facility] Influenza Virus Vaccine Quad .5 mL IM 6+ MO (FLUZONE/FLULAVAL/FL UARIX) Unknown Completed [facility] TDAP Unknown Completed [facility] DTAP Unknown Completed [facility] HIB 4 Dose Schedule Unknown Completed [facility] HEPATITIS A Unknown Completed [facility] Hep B, Adol or Pedi Dosage Unknown Completed [facility] HPV Unknown Completed [facility] Meningococcal Polysaccharide (groups A, C, Y and W-135) conjugate vaccine (MCV4P) Unknown Completed [facility] MMR Unknown Completed [facility] Polio (IPV/OPV) Unknown Completed [facility] Varicella (varivax)(chicken pox) Unknown Completed [facility] Pneumococcal 7 Conjugate, PCV7 (Prevnar7) Unknown Completed [facility] Influenza Virus Vaccine Quad IM, Preserv and ABX Free 6 MO-64 YRS (FLUCELVAX) Unknown Completed [facility] Influenza Virus Vaccine Quad .5 mL IM 6+ MO (FLUZONE/FLULAVAL/FL UARIX) Unknown Completed [facility] TDAP Unknown Completed [facility] DTAP Unknown Completed [facility] HIB 4 Dose Schedule Unknown Completed [facility] HEPATITIS A Unknown Completed [facility] Hep B, Adol or Pedi Dosage Unknown Completed [facility] HPV Unknown Completed [facility] Meningococcal Polysaccharide (groups A, C, Y and W-135) conjugate vaccine (MCV4P) Unknown Completed [facility] MMR Unknown Completed [facility] Polio (IPV/OPV) Unknown Completed [facility] Varicella (varivax)(chicken pox) Unknown Completed [facility] Pneumococcal 7 Conjugate, PCV7 (Prevnar7) Unknown Completed [facility] Influenza Virus Vaccine Quad IM, Preserv and ABX Free 6 MO-64 YRS (FLUCELVAX) Unknown Completed [facility] Influenza Virus Vaccine Quad .5 mL IM 6+ MO (FLUZONE/FLULAVAL/FL UARIX) Unknown Completed [facility] TDAP Unknown Completed [facility] DTAP Unknown Completed [facility] HIB 4 Dose Schedule Unknown Completed [facility] HEPATITIS A Unknown Completed [facility] Hep B, Adol or Pedi Dosage Unknown Completed [facility] HPV Unknown Completed [facility] Meningococcal Polysaccharide (groups A, C, Y and W-135) conjugate vaccine (MCV4P) Unknown Completed [facility] MMR Unknown Completed [facility] Polio (IPV/OPV) Unknown Completed [facility] Varicella (varivax)(chicken pox) Unknown Completed [facility] Pneumococcal 7 Conjugate, PCV7 (Prevnar7) Unknown Completed [facility] Influenza Virus Vaccine Quad IM, Preserv and ABX Free 6 MO-64 YRS (FLUCELVAX) Unknown Completed [facility] Influenza Virus Vaccine Quad .5 mL IM 6+ MO (FLUZONE/FLULAVAL/FL UARIX) Unknown Completed [facility] TDAP Unknown Completed [facility] DTAP Unknown Completed [facility] HIB 4 Dose Schedule Unknown Completed [facility] HEPATITIS A Unknown Completed [facility] Hep B, Adol or Pedi Dosage Unknown Completed [facility] HPV Unknown Completed [facility] Meningococcal Polysaccharide (groups A, C, Y and W-135) conjugate vaccine (MCV4P) Unknown Completed [facility] MMR Unknown Completed [facility] Polio (IPV/OPV) Unknown Completed [facility] Varicella (varivax)(chicken pox) Unknown Completed [facility] Pneumococcal 7 Conjugate, PCV7 (Prevnar7) Unknown Completed [facility] Influenza Virus Vaccine Quad IM, Preserv and ABX Free 6 MO-64 YRS (FLUCELVAX) Unknown Completed [facility] Influenza Virus Vaccine Quad .5 mL IM 6+ MO (FLUZONE/FLULAVAL/FL UARIX) Unknown Completed [facility] TDAP Unknown Completed [facility] DTAP Unknown Completed [facility] HIB 4 Dose Schedule Unknown Completed [facility] HEPATITIS A Unknown Completed [facility] Hep B, Adol or Pedi Dosage Unknown Completed [facility] HPV Unknown Completed [facility] Meningococcal Polysaccharide (groups A, C, Y and W-135) conjugate vaccine (MCV4P) Unknown Completed [facility] MMR Unknown Completed [facility] Polio (IPV/OPV) Unknown Completed [facility] Varicella (varivax)(chicken pox) Unknown Completed [facility] Pneumococcal 7 Conjugate, PCV7 (Prevnar7) Unknown Completed [facility] Influenza Virus Vaccine Quad IM, Preserv and ABX Free 6 MO-64 YRS (FLUCELVAX) Unknown Completed [facility] Influenza Virus Vaccine Quad .5 mL IM 6+ MO (FLUZONE/FLULAVAL/FL UARIX) Unknown Completed [facility] TDAP Unknown Completed [facility] DTAP Unknown Completed [facility] HIB 4 Dose Schedule Unknown Completed [facility] HEPATITIS A Unknown Completed [facility] Hep B, Adol or Pedi Dosage Unknown Completed [facility] HPV Unknown Completed [facility] Meningococcal Polysaccharide (groups A, C, Y and W-135) conjugate vaccine (MCV4P) Unknown Completed [facility] MMR Unknown Completed [facility] Polio (IPV/OPV) Unknown Completed [facility] Varicella (varivax)(chicken pox) Unknown Completed [facility] Pneumococcal 7 Conjugate, PCV7 (Prevnar7) Unknown Completed [facility] Influenza Virus Vaccine Quad IM, Preserv and ABX Free 6 MO-64 YRS (FLUCELVAX) Unknown Completed [facility] Influenza Virus Vaccine Quad .5 mL IM 6+ MO (FLUZONE/FLULAVAL/FL UARIX) Unknown Completed [facility] TDAP Unknown Completed [facility] DTAP Unknown Completed [facility] HIB 4 Dose Schedule Unknown Completed [facility] HEPATITIS A Unknown Completed [facility] Hep B, Adol or Pedi Dosage Unknown Completed [facility] HPV Unknown Completed [facility] Meningococcal Polysaccharide (groups A, C, Y and W-135) conjugate vaccine (MCV4P) Unknown Completed [facility] MMR Unknown Completed [facility] Polio (IPV/OPV) Unknown Completed [facility] Varicella (varivax)(chicken pox) Unknown Completed [facility] Pneumococcal 7 Conjugate, PCV7 (Prevnar7) Unknown Completed [facility] Influenza Virus Vaccine Quad IM, Preserv and ABX Free 6 MO-64 YRS (FLUCELVAX) Unknown Completed [facility] Influenza Virus Vaccine Quad .5 mL IM 6+ MO (FLUZONE/FLULAVAL/FL UARIX) Unknown Completed [facility] TDAP Unknown Completed [facility] DTAP Unknown Completed [facility] HIB 4 Dose Schedule Unknown Completed [facility] HEPATITIS A Unknown Completed [facility] Hep B, Adol or Pedi Dosage Unknown Completed [facility] HPV Unknown Completed [facility] Meningococcal Polysaccharide (groups A, C, Y and W-135) conjugate vaccine (MCV4P) Unknown Completed [facility] MMR Unknown Completed [facility] Polio (IPV/OPV) Unknown Completed [facility] Varicella (varivax)(chicken pox) Unknown Completed [facility] Pneumococcal 7 Conjugate, PCV7 (Prevnar7) Unknown Completed [facility] Influenza Virus Vaccine Quad IM, Preserv and ABX Free 6 MO-64 YRS (FLUCELVAX) Unknown Completed [facility] Influenza Virus Vaccine Quad .5 mL IM 6+ MO (FLUZONE/FLULAVAL/FL UARIX) Unknown Completed [facility] TDAP Unknown Completed [facility] DTAP Unknown Completed [facility] HIB 4 Dose Schedule Unknown Completed [facility] HEPATITIS A Unknown Completed [facility] Hep B, Adol or Pedi Dosage Unknown Completed [facility] HPV Unknown Completed [facility] Meningococcal Polysaccharide (groups A, C, Y and W-135) conjugate vaccine (MCV4P) Unknown Completed [facility] MMR Unknown Completed [facility] Polio (IPV/OPV) Unknown Completed [facility] Varicella (varivax)(chicken pox) Unknown Completed [facility] Pneumococcal 7 Conjugate, PCV7 (Prevnar7) Unknown Completed [facility] Influenza Virus Vaccine Quad IM, Preserv and ABX Free 6 MO-64 YRS (FLUCELVAX) Unknown Completed [facility] Influenza Virus Vaccine Quad .5 mL IM 6+ MO (FLUZONE/FLULAVAL/FL UARIX) Unknown Completed [facility] TDAP Unknown Completed [facility] DTAP Unknown Completed [facility] HIB 4 Dose Schedule Unknown Completed [facility] HEPATITIS A Unknown Completed [facility] Hep B, Adol or Pedi Dosage Unknown Completed [facility] HPV Unknown Completed [facility] Meningococcal Polysaccharide (groups A, C, Y and W-135) conjugate vaccine (MCV4P) Unknown Completed [facility] MMR Unknown Completed [facility] Polio (IPV/OPV) Unknown Completed [facility] Varicella (varivax)(chicken pox) Unknown Completed [facility] Pneumococcal 7 Conjugate, PCV7 (Prevnar7) Unknown Completed [facility] Influenza Virus Vaccine Quad IM, Preserv and ABX Free 6 MO-64 YRS (FLUCELVAX) Unknown Completed [facility] Influenza Virus Vaccine Quad .5 mL IM 6+ MO (FLUZONE/FLULAVAL/FL UARIX) Unknown Completed [facility] TDAP Unknown Completed [facility] DTAP Unknown Completed [facility] HIB 4 Dose Schedule Unknown Completed [facility] HEPATITIS A Unknown Completed [facility] Hep B, Adol or Pedi Dosage Unknown Completed [facility] HPV Unknown Completed [facility] Meningococcal Polysaccharide (groups A, C, Y and W-135) conjugate vaccine (MCV4P) Unknown Completed [facility] MMR Unknown Completed [facility] Polio (IPV/OPV) Unknown Completed [facility] Varicella (varivax)(chicken pox) Unknown Completed [facility] Pneumococcal 7 Conjugate, PCV7 (Prevnar7) Unknown Completed [facility] Influenza Virus Vaccine Quad IM, Preserv and ABX Free 6 MO-64 YRS (FLUCELVAX) Unknown Completed [facility] Influenza Virus Vaccine Quad .5 mL IM 6+ MO (FLUZONE/FLULAVAL/FL UARIX) Unknown Completed [facility] TDAP Unknown Completed [facility] DTAP Unknown Completed [facility] HIB 4 Dose Schedule Unknown Completed [facility] HEPATITIS A Unknown Completed [facility] Hep B, Adol or Pedi Dosage Unknown Completed [facility] HPV Unknown Completed [facility] Meningococcal Polysaccharide (groups A, C, Y and W-135) conjugate vaccine (MCV4P) Unknown Completed [facility] MMR Unknown Completed [facility] Polio (IPV/OPV) Unknown Completed [facility] Varicella (varivax)(chicken pox) Unknown Completed [facility] Pneumococcal 7 Conjugate, PCV7 (Prevnar7) Unknown Completed [facility] Influenza Virus Vaccine Quad IM, Preserv and ABX Free 6 MO-64 YRS (FLUCELVAX) Unknown Completed [facility] Influenza Virus Vaccine Quad .5 mL IM 6+ MO (FLUZONE/FLULAVAL/FL UARIX) Unknown Completed [facility] TDAP Unknown Completed [facility] DTAP Unknown Completed [facility] HIB 4 Dose Schedule Unknown Completed [facility] HEPATITIS A Unknown Completed [facility] Hep B, Adol or Pedi Dosage Unknown Completed [facility] HPV Unknown Completed [facility] Meningococcal Polysaccharide (groups A, C, Y and W-135) conjugate vaccine (MCV4P) Unknown Completed [facility] MMR Unknown Completed [facility] Polio (IPV/OPV) Unknown Completed [facility] Varicella (varivax)(chicken pox) Unknown Completed [facility] Pneumococcal 7 Conjugate, PCV7 (Prevnar7) Unknown Completed [facility] Influenza Virus Vaccine Quad IM, Preserv and ABX Free 6 MO-64 YRS (FLUCELVAX) Unknown Completed [facility] Influenza Virus Vaccine Quad .5 mL IM 6+ MO (FLUZONE/FLULAVAL/FL UARIX) Unknown Completed [facility] TDAP Unknown Completed [facility] DTAP Unknown Completed [facility] HIB 4 Dose Schedule Unknown Completed [facility] HEPATITIS A Unknown Completed [facility] Hep B, Adol or Pedi Dosage Unknown Completed [facility] HPV Unknown Completed [facility] Meningococcal Polysaccharide (groups A, C, Y and W-135) conjugate vaccine (MCV4P) Unknown Completed [facility] MMR Unknown Completed [facility] Polio (IPV/OPV) Unknown Completed [facility] Varicella (varivax)(chicken pox) Unknown Completed [facility] Pneumococcal 7 Conjugate, PCV7 (Prevnar7) Unknown Completed [facility] Influenza Virus Vaccine Quad IM, Preserv and ABX Free 6 MO-64 YRS (FLUCELVAX) Unknown Completed [facility] HEPATITIS A Unknown Completed [facility] Meningococcal Polysaccharide (groups A, C, Y and W-135) conjugate vaccine (MCV4P) Unknown Completed [facility] Pneumococcal 7 Conjugate, PCV7 (Prevnar7) Unknown Completed [facility] Influenza Virus Vaccine Quad IM, Preserv and ABX Free 6 MO-64 YRS (FLUCELVAX) Unknown Completed [facility] Influenza Virus Vaccine Quad .5 mL IM 6+ MO (FLUZONE/FLULAVAL/FL UARIX) Unknown Completed [facility] TDAP Unknown Completed [facility] DTAP Unknown Completed [facility] HIB 4 Dose Schedule Unknown Completed [facility] Hep B, Adol or Pedi Dosage Unknown Completed [facility] HPV Unknown Completed [facility] MMR Unknown Completed [facility] Polio (IPV/OPV) Unknown Completed [facility] Varicella (varivax)(chicken pox) Unknown Completed [facility] Influenza Virus Vaccine Quad .5 mL IM 6+ MO (FLUZONE/FLULAVAL/FL UARIX) Unknown Completed [facility] TDAP Unknown Completed [facility] DTAP Unknown Completed [facility] HIB 4 Dose Schedule Unknown Completed [facility] HEPATITIS A Unknown Completed [facility] Hep B, Adol or Pedi Dosage Unknown Completed [facility] HPV Unknown Completed [facility] Meningococcal Polysaccharide (groups A, C, Y and W-135) conjugate vaccine (MCV4P) Unknown Completed [facility] MMR Unknown Completed [facility] Polio (IPV/OPV) Unknown Completed [facility] Varicella (varivax)(chicken pox) Unknown Completed [facility] Pneumococcal 7 Conjugate, PCV7 (Prevnar7) Unknown Completed [facility] Influenza Virus Vaccine Quad IM, Preserv and ABX Free 6 MO-64 YRS (FLUCELVAX) Unknown Completed [facility] Influenza Virus Vaccine Quad .5 mL IM 6+ MO (FLUZONE/FLULAVAL/FL UARIX) Unknown Completed [facility] DTAP Unknown Completed [facility] HIB 4 Dose Schedule Unknown Completed [facility] HEPATITIS A Unknown Completed [facility] Hep B, Adol or Pedi Dosage Unknown Completed [facility] HPV Unknown Completed [facility] Meningococcal Polysaccharide (groups A, C, Y and W-135) conjugate vaccine (MCV4P) Unknown Completed [facility] MMR Unknown Completed [facility] Polio (IPV/OPV) Unknown Completed [facility] Varicella (varivax)(chicken pox) Unknown Completed [facility] Pneumococcal 7 Conjugate, PCV7 (Prevnar7) Unknown Completed [facility] TDAP Unknown Completed [facility] Influenza Virus Vaccine Quad IM, Preserv and ABX Free 6 MO-64 YRS (FLUCELVAX) Unknown Completed [facility] Influenza Virus Vaccine Quad .5 mL IM 6+ MO (FLUZONE/FLULAVAL/FL UARIX) Unknown Completed [facility] TDAP Unknown Completed [facility] DTAP Unknown Completed [facility] HIB 4 Dose Schedule Unknown Completed [facility] HEPATITIS A Unknown Completed [facility] Hep B, Adol or Pedi Dosage Unknown Completed [facility] HPV Unknown Completed [facility] Meningococcal Polysaccharide (groups A, C, Y and W-135) conjugate vaccine (MCV4P) Unknown Completed [facility] MMR Unknown Completed [facility] Polio (IPV/OPV) Unknown Completed [facility] Varicella (varivax)(chicken pox) Unknown Completed [facility] Pneumococcal 7 Conjugate, PCV7 (Prevnar7) Unknown Completed [facility] Influenza Virus Vaccine Quad IM, Preserv and ABX Free 6 MO-64 YRS (FLUCELVAX) Unknown Completed [facility] Influenza Virus Vaccine Quad .5 mL IM 6+ MO (FLUZONE/FLULAVAL/FL UARIX) Unknown Completed [facility] TDAP Unknown Completed [facility] DTAP Unknown Completed [facility] HIB 4 Dose Schedule Unknown Completed [facility] HEPATITIS A Unknown Completed [facility] Hep B, Adol or Pedi Dosage Unknown Completed [facility] HPV Unknown Completed [facility] Meningococcal Polysaccharide (groups A, C, Y and W-135) conjugate vaccine (MCV4P) Unknown Completed [facility] MMR Unknown Completed [facility] Polio (IPV/OPV) Unknown Completed [facility] Varicella (varivax)(chicken pox) Unknown Completed [facility] Pneumococcal 7 Conjugate, PCV7 (Prevnar7) Unknown Completed [facility] Influenza Virus Vaccine Quad IM, Preserv and ABX Free 6 MO-64 YRS (FLUCELVAX) Unknown Completed [facility] Influenza Virus Vaccine Quad .5 mL IM 6+ MO (FLUZONE/FLULAVAL/FL UARIX) Unknown Completed [facility] TDAP Unknown Completed [facility] DTAP Unknown Completed [facility] HIB 4 Dose Schedule Unknown Completed [facility] HEPATITIS A Unknown Completed [facility] Hep B, Adol or Pedi Dosage Unknown Completed [facility] HPV Unknown Completed [facility] Meningococcal Polysaccharide (groups A, C, Y and W-135) conjugate vaccine (MCV4P) Unknown Completed [facility] MMR Unknown Completed [facility] Polio (IPV/OPV) Unknown Completed [facility] Varicella (varivax)(chicken pox) Unknown Completed [facility] Pneumococcal 7 Conjugate, PCV7 (Prevnar7) Unknown Completed [facility] Influenza Virus Vaccine Quad IM, Preserv and ABX Free 6 MO-64 YRS (FLUCELVAX) Unknown Completed [facility] Influenza Virus Vaccine Quad .5 mL IM 6+ MO (FLUZONE/FLULAVAL/FL UARIX) Unknown Completed [facility] TDAP Unknown Completed [facility] DTAP Unknown Completed [facility] HIB 4 Dose Schedule Unknown Completed [facility] HEPATITIS A Unknown Completed [facility] Hep B, Adol or Pedi Dosage Unknown Completed [facility] HPV Unknown Completed [facility] Meningococcal Polysaccharide (groups A, C, Y and W-135) conjugate vaccine (MCV4P) Unknown Completed [facility] MMR Unknown Completed [facility] Polio (IPV/OPV) Unknown Completed [facility] Varicella (varivax)(chicken pox) Unknown Completed [facility] Pneumococcal 7 Conjugate, PCV7 (Prevnar7) Unknown Completed [facility] Influenza Virus Vaccine Quad IM, Preserv and ABX Free 6 MO-64 YRS (FLUCELVAX) Unknown Completed [facility] Influenza Virus Vaccine Quad .5 mL IM 6+ MO (FLUZONE/FLULAVAL/FL UARIX) Unknown Completed [facility] TDAP Unknown Completed [facility] DTAP Unknown Completed [facility] HIB 4 Dose Schedule Unknown Completed [facility] HEPATITIS A Unknown Completed [facility] Hep B, Adol or Pedi Dosage Unknown Completed [facility] HPV Unknown Completed [facility] Meningococcal Polysaccharide (groups A, C, Y and W-135) conjugate vaccine (MCV4P) Unknown Completed [facility] MMR Unknown Completed [facility] Polio (IPV/OPV) Unknown Completed [facility] Varicella (varivax)(chicken pox) Unknown Completed [facility] Pneumococcal 7 Conjugate, PCV7 (Prevnar7) Unknown Completed [facility] Influenza Virus Vaccine Quad IM, Preserv and ABX Free 6 MO-64 YRS (FLUCELVAX) Unknown Completed [facility] Influenza Virus Vaccine Quad .5 mL IM 6+ MO (FLUZONE/FLULAVAL/FL UARIX) Unknown Completed [facility] TDAP Unknown Completed [facility] DTAP Unknown Completed [facility] HIB 4 Dose Schedule Unknown Completed [facility] HEPATITIS A Unknown Completed [facility] Hep B, Adol or Pedi Dosage Unknown Completed [facility] HPV Unknown Completed [facility] Meningococcal Polysaccharide (groups A, C, Y and W-135) conjugate vaccine (MCV4P) Unknown Completed [facility] MMR Unknown Completed [facility] Polio (IPV/OPV) Unknown Completed [facility] Varicella (varivax)(chicken pox) Unknown Completed [facility] Pneumococcal 7 Conjugate, PCV7 (Prevnar7) Unknown Completed [facility] Influenza Virus Vaccine Quad IM, Preserv and ABX Free 6 MO-64 YRS (FLUCELVAX) Unknown Completed [facility] Influenza Virus Vaccine Quad .5 mL IM 6+ MO (FLUZONE/FLULAVAL/FL UARIX) Unknown Completed [facility] TDAP Unknown Completed [facility] DTAP Unknown Completed [facility] HIB 4 Dose Schedule Unknown Completed [facility] HEPATITIS A Unknown Completed [facility] Hep B, Adol or Pedi Dosage Unknown Completed [facility] HPV Unknown Completed [facility] Meningococcal Polysaccharide (groups A, C, Y and W-135) conjugate vaccine (MCV4P) Unknown Completed [facility] MMR Unknown Completed [facility] Polio (IPV/OPV) Unknown Completed [facility] Varicella (varivax)(chicken pox) Unknown Completed [facility] Pneumococcal 7 Conjugate, PCV7 (Prevnar7) Unknown Completed [facility] Influenza Virus Vaccine Quad IM, Preserv and ABX Free 6 MO-64 YRS (FLUCELVAX) Unknown Completed [facility] Influenza Virus Vaccine Quad .5 mL IM 6+ MO (FLUZONE/FLULAVAL/FL UARIX) Unknown Completed [facility] TDAP Unknown Completed [facility] DTAP Unknown Completed [facility] HIB 4 Dose Schedule Unknown Completed [facility] HEPATITIS A Unknown Completed [facility] Hep B, Adol or Pedi Dosage Unknown Completed [facility] HPV Unknown Completed [facility] Meningococcal Polysaccharide (groups A, C, Y and W-135) conjugate vaccine (MCV4P) Unknown Completed [facility] MMR Unknown Completed [facility] Polio (IPV/OPV) Unknown Completed [facility] Varicella (varivax)(chicken pox) Unknown Completed [facility] Pneumococcal 7 Conjugate, PCV7 (Prevnar7) Unknown Completed [facility] Influenza Virus Vaccine Quad IM, Preserv and ABX Free 6 MO-64 YRS (FLUCELVAX) Unknown Completed [facility] Influenza Virus Vaccine Quad .5 mL IM 6+ MO (FLUZONE/FLULAVAL/FL UARIX) Unknown Completed [facility] TDAP Unknown Completed [facility] DTAP Unknown Completed [facility] HIB 4 Dose Schedule Unknown Completed [facility] HEPATITIS A Unknown Completed [facility] Hep B, Adol or Pedi Dosage Unknown Completed [facility] HPV Unknown Completed [facility] Meningococcal Polysaccharide (groups A, C, Y and W-135) conjugate vaccine (MCV4P) Unknown Completed [facility] MMR Unknown Completed [facility] Polio (IPV/OPV) Unknown Completed [facility] Varicella (varivax)(chicken pox) Unknown Completed [facility] Pneumococcal 7 Conjugate, PCV7 (Prevnar7) Unknown Completed [facility] Influenza Virus Vaccine Quad IM, Preserv and ABX Free 6 MO-64 YRS (FLUCELVAX) Unknown Completed [facility] Influenza Virus Vaccine Quad .5 mL IM 6+ MO (FLUZONE/FLULAVAL/FL UARIX) Unknown Completed [facility] TDAP Unknown Completed [facility] DTAP Unknown Completed [facility] HIB 4 Dose Schedule Unknown Completed [facility] HEPATITIS A Unknown Completed [facility] Hep B, Adol or Pedi Dosage Unknown Completed [facility] HPV Unknown Completed [facility] Meningococcal Polysaccharide (groups A, C, Y and W-135) conjugate vaccine (MCV4P) Unknown Completed [facility] MMR Unknown Completed [facility] Polio (IPV/OPV) Unknown Completed [facility] Varicella (varivax)(chicken pox) Unknown Completed [facility] Pneumococcal 7 Conjugate, PCV7 (Prevnar7) Unknown Completed [facility] Influenza Virus Vaccine Quad IM, Preserv and ABX Free 6 MO-64 YRS (FLUCELVAX) Unknown Completed [facility] Influenza Virus Vaccine Quad .5 mL IM 6+ MO (FLUZONE/FLULAVAL/FL UARIX) Unknown Completed [facility] TDAP Unknown Completed [facility] DTAP Unknown Completed [facility] HIB 4 Dose Schedule Unknown Completed [facility] HEPATITIS A Unknown Completed [facility] Hep B, Adol or Pedi Dosage Unknown Completed [facility] HPV Unknown Completed [facility] Meningococcal Polysaccharide (groups A, C, Y and W-135) conjugate vaccine (MCV4P) Unknown Completed [facility] MMR Unknown Completed [facility] Polio (IPV/OPV) Unknown Completed [facility] Varicella (varivax)(chicken pox) Unknown Completed [facility] Pneumococcal 7 Conjugate, PCV7 (Prevnar7) Unknown Completed [facility] Influenza Virus Vaccine Quad IM, Preserv and ABX Free 6 MO-64 YRS (FLUCELVAX) Unknown Completed [facility] Influenza Virus Vaccine Quad .5 mL IM 6+ MO (FLUZONE/FLULAVAL/FL UARIX) Unknown Completed [facility] TDAP Unknown Completed [facility] DTAP Unknown Completed [facility] HIB 4 Dose Schedule Unknown Completed [facility] HEPATITIS A Unknown Completed [facility] Hep B, Adol or Pedi Dosage Unknown Completed [facility] HPV Unknown Completed [facility] Meningococcal Polysaccharide (groups A, C, Y and W-135) conjugate vaccine (MCV4P) Unknown Completed [facility] MMR Unknown Completed [facility] Polio (IPV/OPV) Unknown Completed [facility] Varicella (varivax)(chicken pox) Unknown Completed [facility] Pneumococcal 7 Conjugate, PCV7 (Prevnar7) Unknown Completed [facility] Influenza Virus Vaccine Quad IM, Preserv and ABX Free 6 MO-64 YRS (FLUCELVAX) Unknown Completed [facility] Influenza Virus Vaccine Quad .5 mL IM 6+ MO (FLUZONE/FLULAVAL/FL UARIX) Unknown Completed [facility] TDAP Unknown Completed [facility] DTAP Unknown Completed [facility] HIB 4 Dose Schedule Unknown Completed [facility] HEPATITIS A Unknown Completed [facility] Hep B, Adol or Pedi Dosage Unknown Completed [facility] HPV Unknown Completed [facility] Meningococcal Polysaccharide (groups A, C, Y and W-135) conjugate vaccine (MCV4P) Unknown Completed [facility] MMR Unknown Completed [facility] Polio (IPV/OPV) Unknown Completed [facility] Varicella (varivax)(chicken pox) Unknown Completed [facility] Pneumococcal 7 Conjugate, PCV7 (Prevnar7) Unknown Completed [facility] Influenza Virus Vaccine Quad IM, Preserv and ABX Free 6 MO-64 YRS (FLUCELVAX) Unknown Completed [facility] Influenza Virus Vaccine Quad .5 mL IM 6+ MO (FLUZONE/FLULAVAL/FL UARIX) Unknown Completed [facility] DTAP Unknown Completed [facility] HIB 4 Dose Schedule Unknown Completed [facility] HEPATITIS A Unknown Completed [facility] Hep B, Adol or Pedi Dosage Unknown Completed [facility] HPV Unknown Completed [facility] Meningococcal Polysaccharide (groups A, C, Y and W-135) conjugate vaccine (MCV4P) Unknown Completed [facility] MMR Unknown Completed [facility] Polio (IPV/OPV) Unknown Completed [facility] Varicella (varivax)(chicken pox) Unknown Completed [facility] Pneumococcal 7 Conjugate, PCV7 (Prevnar7) Unknown Completed [facility] TDAP Unknown Completed [facility] Influenza Virus Vaccine Quad IM, Preserv and ABX Free 6 MO-64 YRS (FLUCELVAX) Unknown Completed [facility] Influenza Virus Vaccine Quad .5 mL IM 6+ MO (FLUZONE/FLULAVAL/FL UARIX) Unknown Completed [facility] TDAP Unknown Completed [facility] DTAP Unknown Completed [facility] HIB 4 Dose Schedule Unknown Completed [facility] HEPATITIS A Unknown Completed [facility] Hep B, Adol or Pedi Dosage Unknown Completed [facility] HPV Unknown Completed [facility] Meningococcal Polysaccharide (groups A, C, Y and W-135) conjugate vaccine (MCV4P) Unknown Completed [facility] MMR Unknown Completed [facility] Polio (IPV/OPV) Unknown Completed [facility] Varicella (varivax)(chicken pox) Unknown Completed [facility] Pneumococcal 7 Conjugate, PCV7 (Prevnar7) Unknown Completed [facility] Influenza Virus Vaccine Quad IM, Preserv and ABX Free 6 MO-64 YRS (FLUCELVAX) Unknown Completed [facility] Influenza Virus Vaccine Quad .5 mL IM 6+ MO (FLUZONE/FLULAVAL/FL UARIX) Unknown Completed [facility] TDAP Unknown Completed [facility] DTAP Unknown Completed [facility] HIB 4 Dose Schedule Unknown Completed [facility] HEPATITIS A Unknown Completed [facility] Hep B, Adol or Pedi Dosage Unknown Completed [facility] HPV Unknown Completed [facility] Meningococcal Polysaccharide (groups A, C, Y and W-135) conjugate vaccine (MCV4P) Unknown Completed [facility] MMR Unknown Completed [facility] Polio (IPV/OPV) Unknown Completed [facility] Varicella (varivax)(chicken pox) Unknown Completed [facility] Pneumococcal 7 Conjugate, PCV7 (Prevnar7) Unknown Completed [facility] Influenza Virus Vaccine Quad IM, Preserv and ABX Free 6 MO-64 YRS (FLUCELVAX) Unknown Completed [facility] Influenza Virus Vaccine Quad .5 mL IM 6+ MO (FLUZONE/FLULAVAL/FL UARIX) Unknown Completed [facility] TDAP Unknown Completed [facility] DTAP Unknown Completed [facility] HIB 4 Dose Schedule Unknown Completed [facility] HEPATITIS A Unknown Completed [facility] Hep B, Adol or Pedi Dosage Unknown Completed [facility] HPV Unknown Completed [facility] Meningococcal Polysaccharide (groups A, C, Y and W-135) conjugate vaccine (MCV4P) Unknown Completed [facility] MMR Unknown Completed [facility] Polio (IPV/OPV) Unknown Completed [facility] Varicella (varivax)(chicken pox) Unknown Completed [facility] Pneumococcal 7 Conjugate, PCV7 (Prevnar7) Unknown Completed [facility] Influenza Virus Vaccine Quad IM, Preserv and ABX Free 6 MO-64 YRS (FLUCELVAX) Unknown Completed [facility] Influenza Virus Vaccine Quad .5 mL IM 6+ MO (FLUZONE/FLULAVAL/FL UARIX) Unknown Completed [facility] TDAP Unknown Completed [facility] DTAP Unknown Completed [facility] HIB 4 Dose Schedule Unknown Completed [facility] HEPATITIS A Unknown Completed [facility] Hep B, Adol or Pedi Dosage Unknown Completed [facility] HPV Unknown Completed [facility] Meningococcal Polysaccharide (groups A, C, Y and W-135) conjugate vaccine (MCV4P) Unknown Completed [facility] MMR Unknown Completed [facility] Polio (IPV/OPV) Unknown Completed [facility] Varicella (varivax)(chicken pox) Unknown Completed [facility] Pneumococcal 7 Conjugate, PCV7 (Prevnar7) Unknown Completed [facility] Influenza Virus Vaccine Quad IM, Preserv and ABX Free 6 MO-64 YRS (FLUCELVAX) Unknown Completed [facility] Influenza Virus Vaccine Quad .5 mL IM 6+ MO (FLUZONE/FLULAVAL/FL UARIX) Unknown Completed [facility] TDAP Unknown Completed [facility] DTAP Unknown Completed [facility] HIB 4 Dose Schedule Unknown Completed [facility] HEPATITIS A Unknown Completed [facility] Hep B, Adol or Pedi Dosage Unknown Completed [facility] HPV Unknown Completed [facility] Meningococcal Polysaccharide (groups A, C, Y and W-135) conjugate vaccine (MCV4P) Unknown Completed [facility] MMR Unknown Completed [facility] Polio (IPV/OPV) Unknown Completed [facility] Varicella (varivax)(chicken pox) Unknown Completed [facility] Pneumococcal 7 Conjugate, PCV7 (Prevnar7) Unknown Completed [facility] Influenza Virus Vaccine Quad IM, Preserv and ABX Free 6 MO-64 YRS (FLUCELVAX) Unknown Completed [facility] Influenza Virus Vaccine Quad .5 mL IM 6+ MO (FLUZONE/FLULAVAL/FL UARIX) Unknown Completed [facility] TDAP Unknown Completed [facility] DTAP Unknown Completed [facility] HIB 4 Dose Schedule Unknown Completed [facility] HEPATITIS A Unknown Completed [facility] Hep B, Adol or Pedi Dosage Unknown Completed [facility] HPV Unknown Completed [facility] Meningococcal Polysaccharide (groups A, C, Y and W-135) conjugate vaccine (MCV4P) Unknown Completed [facility] MMR Unknown Completed [facility] Polio (IPV/OPV) Unknown Completed [facility] Varicella (varivax)(chicken pox) Unknown Completed [facility] Pneumococcal 7 Conjugate, PCV7 (Prevnar7) Unknown Completed [facility] Influenza Virus Vaccine Quad IM, Preserv and ABX Free 6 MO-64 YRS (FLUCELVAX) Unknown Completed [facility] Influenza Virus Vaccine Quad .5 mL IM 6+ MO (FLUZONE/FLULAVAL/FL UARIX) Unknown Completed [facility] TDAP Unknown Completed [facility] DTAP Unknown Completed [facility] HIB 4 Dose Schedule Unknown Completed [facility] HEPATITIS A Unknown Completed [facility] Hep B, Adol or Pedi Dosage Unknown Completed [facility] HPV Unknown Completed [facility] Meningococcal Polysaccharide (groups A, C, Y and W-135) conjugate vaccine (MCV4P) Unknown Completed [facility] MMR Unknown Completed [facility] Polio (IPV/OPV) Unknown Completed [facility] Varicella (varivax)(chicken pox) Unknown Completed [facility] Pneumococcal 7 Conjugate, PCV7 (Prevnar7) Unknown Completed [facility] Influenza Virus Vaccine Quad IM, Preserv and ABX Free 6 MO-64 YRS (FLUCELVAX) Unknown Completed [facility] Influenza Virus Vaccine Quad .5 mL IM 6+ MO (FLUZONE/FLULAVAL/FL UARIX) Unknown Completed [facility] TDAP Unknown Completed [facility] DTAP Unknown Completed [facility] HIB 4 Dose Schedule Unknown Completed [facility] HEPATITIS A Unknown Completed [facility] Hep B, Adol or Pedi Dosage Unknown Completed [facility] HPV Unknown Completed [facility] Meningococcal Polysaccharide (groups A, C, Y and W-135) conjugate vaccine (MCV4P) Unknown Completed [facility] MMR Unknown Completed [facility] Polio (IPV/OPV) Unknown Completed [facility] Varicella (varivax)(chicken pox) Unknown Completed [facility] Pneumococcal 7 Conjugate, PCV7 (Prevnar7) Unknown Completed [facility] Influenza Virus Vaccine Quad IM, Preserv and ABX Free 6 MO-64 YRS (FLUCELVAX) Unknown Completed [facility] Influenza Virus Vaccine Quad .5 mL IM 6+ MO (FLUZONE/FLULAVAL/FL UARIX) Unknown Completed [facility] TDAP Unknown [facility]pleted [facility] [facility] Unknown Completed [facility] HIB 4 Dose Schedule Unknown Completed [facility] HEPATITIS A Unknown Completed [facility] Hep B, Adol or Pedi Dosage Unknown Completed [facility] HPV Unknown Completed [facility] Meningococcal Polysaccharide (groups A, C, Y and W-135) conjugate vaccine (MCV4P) Unknown Completed [facility] MMR Unknown Completed [facility] Polio (IPV/OPV) Unknown Completed [facility] Varicella (varivax)(chicken pox) Unknown Completed [facility] Pneumococcal 7 Conjugate, PCV7 (Prevnar7) Unknown Completed [facility] Influenza Virus Vaccine Quad IM, Preserv and ABX Free 6 MO-64 YRS (FLUCELVAX) Unknown Completed [facility] Influenza Virus Vaccine Quad .5 mL IM 6+ MO (FLUZONE/FLULAVAL/FL UARIX) Unknown Completed [facility] TDAP Unknown Completed [facility] DTAP Unknown Completed [facility] HIB 4 Dose Schedule Unknown Completed [facility] HEPATITIS A Unknown Completed [facility] Hep B, Adol or Pedi Dosage Unknown Completed [facility] HPV Unknown Completed [facility] Meningococcal Polysaccharide (groups A, C, Y and W-135) conjugate vaccine (MCV4P) Unknown Completed [facility] MMR Unknown Completed [facility] Polio (IPV/OPV) Unknown Completed [facility] Varicella (varivax)(chicken pox) Unknown Completed [facility] Pneumococcal 7 Conjugate, PCV7 (Prevnar7) Unknown Completed [facility] Influenza Virus Vaccine Quad IM, Preserv and ABX Free 6 MO-64 YRS (FLUCELVAX) Unknown Completed [facility] Influenza Virus Vaccine Quad .5 mL IM 6+ MO (FLUZONE/FLULAVAL/FL UARIX) Unknown Completed [facility] TDAP Unknown Completed [facility] DTAP Unknown Completed [facility] HIB 4 Dose Schedule Unknown Completed [facility] HEPATITIS A Unknown Completed [facility] Hep B, Adol or Pedi Dosage Unknown Completed [facility] HPV Unknown Completed [facility] Meningococcal Polysaccharide (groups A, C, Y and W-135) conjugate vaccine (MCV4P) Unknown Completed [facility] MMR Unknown Completed [facility] Polio (IPV/OPV) Unknown Completed [facility] Varicella (varivax)(chicken pox) Unknown Completed [facility] Pneumococcal 7 Conjugate, PCV7 (Prevnar7) Unknown Completed [facility] Influenza Virus Vaccine Quad IM, Preserv and ABX Free 6 MO-64 YRS (FLUCELVAX) Unknown Completed [facility] Influenza Virus Vaccine Quad .5 mL IM 6+ MO (FLUZONE/FLULAVAL/FL UARIX) Unknown Completed [facility] TDAP Unknown Completed [facility] DTAP Unknown Completed [facility] HIB 4 Dose Schedule Unknown Completed [facility] HEPATITIS A Unknown Completed [facility] Hep B, Adol or Pedi Dosage Unknown Completed [facility] HPV Unknown Completed [facility] Meningococcal Polysaccharide (groups A, C, Y and W-135) conjugate vaccine (MCV4P) Unknown Completed [facility] MMR Unknown Completed [facility] Polio (IPV/OPV) Unknown Completed [facility] Varicella (varivax)(chicken pox) Unknown Completed [facility] Pneumococcal 7 Conjugate, PCV7 (Prevnar7) Unknown Completed [facility] Influenza Virus Vaccine Quad IM, Preserv and ABX Free 6 MO-64 YRS (FLUCELVAX) Unknown Completed [facility] Influenza Virus Vaccine Quad .5 mL IM 6+ MO (FLUZONE/FLULAVAL/FL UARIX) Unknown Completed [facility] TDAP Unknown Completed [facility] DTAP Unknown Completed [facility] HIB 4 Dose Schedule Unknown Completed [facility] HEPATITIS A Unknown Completed [facility] Hep B, Adol or Pedi Dosage Unknown Completed [facility] HPV Unknown Completed [facility] Meningococcal Polysaccharide (groups A, C, Y and W-135) conjugate vaccine (MCV4P) Unknown Completed [facility] MMR Unknown Completed [facility] Polio (IPV/OPV) Unknown Completed [facility] Varicella (varivax)(chicken pox) Unknown Completed [facility] Pneumococcal 7 Conjugate, PCV7 (Prevnar7) Unknown Completed [facility] Influenza Virus Vaccine Quad IM, Preserv and ABX Free 6 MO-64 YRS (FLUCELVAX) Unknown Completed [facility] Influenza Virus Vaccine Quad .5 mL IM 6+ MO (FLUZONE/FLULAVAL/FL UARIX) Unknown Completed [facility] TDAP Unknown Completed [facility] DTAP Unknown Completed [facility] HIB 4 Dose Schedule Unknown Completed [facility] HEPATITIS A Unknown Completed [facility] Hep B, Adol or Pedi Dosage Unknown Completed [facility] HPV Unknown Completed [facility] Meningococcal Polysaccharide (groups A, C, Y and W-135) conjugate vaccine (MCV4P) Unknown Completed [facility] MMR Unknown Completed [facility] Polio (IPV/OPV) Unknown Completed [facility] Varicella (varivax)(chicken pox) Unknown Completed [facility] Pneumococcal 7 Conjugate, PCV7 (Prevnar7) Unknown Completed [facility] Influenza Virus Vaccine Quad IM, Preserv and ABX Free 6 MO-64 YRS (FLUCELVAX) Unknown Completed [facility] Influenza Virus Vaccine Quad .5 mL IM 6+ MO (FLUZONE/FLULAVAL/FL UARIX) Unknown Completed [facility] TDAP Unknown Completed [facility] DTAP Unknown Completed [facility] HIB 4 Dose Schedule Unknown Completed [facility] HEPATITIS A Unknown Completed [facility] Hep B, Adol or Pedi Dosage Unknown Completed [facility] HPV Unknown Completed [facility] Meningococcal Polysaccharide (groups A, C, Y and W-135) conjugate vaccine (MCV4P) Unknown Completed [facility] MMR Unknown Completed [facility] Polio (IPV/OPV) Unknown Completed [facility] Varicella (varivax)(chicken pox) Unknown Completed [facility] Pneumococcal 7 Conjugate, PCV7 (Prevnar7) Unknown Completed [facility] Influenza Virus Vaccine Quad IM, Preserv and ABX Free 6 MO-64 YRS (FLUCELVAX) Unknown Completed [facility] Influenza Virus Vaccine Quad .5 mL IM 6+ MO (FLUZONE/FLULAVAL/FL UARIX) Unknown Completed [facility] TDAP Unknown Completed [facility] DTAP Unknown Completed [facility] HIB 4 Dose Schedule Unknown Completed [facility] HEPATITIS A Unknown Completed [facility] Hep B, Adol or Pedi Dosage Unknown Completed [facility] HPV Unknown Completed [facility] Meningococcal Polysaccharide (groups A, C, Y and W-135) conjugate vaccine (MCV4P) Unknown Completed [facility] MMR Unknown Completed [facility] Polio (IPV/OPV) Unknown Completed [facility] Varicella (varivax)(chicken pox) Unknown Completed [facility] Pneumococcal 7 Conjugate, PCV7 (Prevnar7) Unknown Completed [facility] Influenza Virus Vaccine Quad IM, Preserv and ABX Free 6 MO-64 YRS (FLUCELVAX) Unknown Completed [facility] Influenza Virus Vaccine Quad .5 mL IM 6+ MO (FLUZONE/FLULAVAL/FL UARIX) Unknown Completed [facility] TDAP Unknown Completed [facility] DTAP Unknown Completed [facility] HIB 4 Dose Schedule Unknown Completed [facility] HEPATITIS A Unknown Completed [facility] Hep B, Adol or Pedi Dosage Unknown Completed [facility] HPV Unknown Completed [facility] Meningococcal Polysaccharide (groups A, C, Y and W-135) conjugate vaccine (MCV4P) Unknown Completed [facility] MMR Unknown Completed [facility] Polio (IPV/OPV) Unknown Completed [facility] Varicella (varivax)(chicken pox) Unknown Completed [facility] Pneumococcal 7 Conjugate, PCV7 (Prevnar7) Unknown Completed [facility] Influenza Virus Vaccine Quad IM, Preserv and ABX Free 6 MO-64 YRS (FLUCELVAX) Unknown Completed [facility] Influenza Virus Vaccine Quad .5 mL IM 6+ MO (FLUZONE/FLULAVAL/FL UARIX) Unknown Completed [facility] TDAP Unknown Completed [facility] DTAP Unknown Completed [facility] HIB 4 Dose Schedule Unknown Completed [facility] HEPATITIS A Unknown Completed [facility] Hep B, Adol or Pedi Dosage Unknown Completed [facility] HPV Unknown Completed [facility] Meningococcal Polysaccharide (groups A, C, Y and W-135) conjugate vaccine (MCV4P) Unknown Completed [facility] MMR Unknown Completed [facility] Polio (IPV/OPV) Unknown Completed [facility] Varicella (varivax)(chicken pox) Unknown Completed [facility] Pneumococcal 7 Conjugate, PCV7 (Prevnar7) Unknown Completed [facility] Influenza Virus Vaccine Quad IM, Preserv and ABX Free 6 MO-64 YRS (FLUCELVAX) Unknown Completed [facility] Influenza Virus Vaccine Quad .5 mL IM 6+ MO (FLUZONE/FLULAVAL/FL UARIX) Unknown Completed [facility] TDAP Unknown Completed [facility] DTAP Unknown Completed [facility] HIB 4 Dose Schedule Unknown Completed [facility] HEPATITIS A Unknown Completed [facility] Hep B, Adol or Pedi Dosage Unknown Completed [facility] HPV Unknown Completed [facility] Meningococcal Polysaccharide (groups A, C, Y and W-135) conjugate vaccine (MCV4P) Unknown Completed [facility] MMR Unknown Completed [facility] Polio (IPV/OPV) Unknown Completed [facility] Varicella (varivax)(chicken pox) Unknown Completed [facility] Pneumococcal 7 Conjugate, PCV7 (Prevnar7) Unknown Completed [facility] Influenza Virus Vaccine Quad IM, Preserv and ABX Free 6 MO-64 YRS (FLUCELVAX) Unknown Completed [facility] Influenza Virus Vaccine Quad .5 mL IM 6+ MO (FLUZONE/FLULAVAL/FL UARIX) Unknown Completed [facility] TDAP Unknown Completed [facility] DTAP Unknown Completed [facility] HIB 4 Dose Schedule Unknown Completed [facility] HEPATITIS A Unknown Completed [facility] Hep B, Adol or Pedi Dosage Unknown Completed [facility] HPV Unknown Completed [facility] Meningococcal Polysaccharide (groups A, C, Y and W-135) conjugate vaccine (MCV4P) Unknown Completed [facility] MMR Unknown Completed [facility] Polio (IPV/OPV) Unknown Completed [facility] Varicella (varivax)(chicken pox) Unknown Completed [facility] Pneumococcal 7 Conjugate, PCV7 (Prevnar7) Unknown Completed [facility] Influenza Virus Vaccine Quad IM, Preserv and ABX Free 6 MO-64 YRS (FLUCELVAX) Unknown Completed [facility] Influenza Virus Vaccine Quad .5 mL IM 6+ MO (FLUZONE/FLULAVAL/FL UARIX) Unknown Completed [facility] TDAP Unknown Completed [facility] DTAP Unknown Completed [facility] HIB 4 Dose Schedule Unknown Completed [facility] HEPATITIS A Unknown Completed [facility] Hep B, Adol or Pedi Dosage Unknown Completed [facility] HPV Unknown Completed [facility] Meningococcal Polysaccharide (groups A, C, Y and W-135) conjugate vaccine (MCV4P) Unknown Completed [facility] MMR Unknown Completed [facility] Polio (IPV/OPV) Unknown Completed [facility] Varicella (varivax)(chicken pox) Unknown Completed [facility] Pneumococcal 7 Conjugate, PCV7 (Prevnar7) Unknown Completed [facility] Influenza Virus Vaccine Quad IM, Preserv and ABX Free 6 MO-64 YRS (FLUCELVAX) Unknown Completed [facility] Influenza Virus Vaccine Quad .5 mL IM 6+ MO (FLUZONE/FLULAVAL/FL UARIX) Unknown Completed [facility] TDAP Unknown Completed [facility] DTAP Unknown Completed [facility] HIB 4 Dose Schedule Unknown Completed [facility] HEPATITIS A Unknown Completed [facility] Hep B, Adol or Pedi Dosage Unknown Completed [facility] HPV Unknown Completed [facility] Meningococcal Polysaccharide (groups A, C, Y and W-135) conjugate vaccine (MCV4P) Unknown Completed [facility] MMR Unknown Completed [facility] Polio (IPV/OPV) Unknown Completed [facility] Varicella (varivax)(chicken pox) Unknown Completed [facility] Pneumococcal 7 Conjugate, PCV7 (Prevnar7) Unknown Completed [facility] Influenza Virus Vaccine Quad IM, Preserv and ABX Free 6 MO-64 YRS (FLUCELVAX) Unknown Completed [facility] Influenza Virus Vaccine Quad .5 mL IM 6+ MO (FLUZONE/FLULAVAL/FL UARIX) Unknown Completed [facility] TDAP Unknown Completed [facility] DTAP Unknown Completed [facility] HIB 4 Dose Schedule Unknown Completed [facility] HEPATITIS A Unknown Completed [facility] Hep B, Adol or Pedi Dosage Unknown Completed [facility] HPV Unknown Completed [facility] Meningococcal Polysaccharide (groups A, C, Y and W-135) conjugate vaccine (MCV4P) Unknown Completed [facility] MMR Unknown Completed [facility] Polio (IPV/OPV) Unknown Completed [facility] Varicella (varivax)(chicken pox) Unknown Completed [facility] Pneumococcal 7 Conjugate, PCV7 (Prevnar7) Unknown Completed [facility] Influenza Virus Vaccine Quad IM, Preserv and ABX Free 6 MO-64 YRS (FLUCELVAX) Unknown Completed [facility] Influenza Virus Vaccine Quad .5 mL IM 6+ MO (FLUZONE/FLULAVAL/FL UARIX) Unknown Completed [facility] TDAP Unknown Completed [facility] DTAP Unknown Completed [facility] HIB 4 Dose Schedule Unknown Completed [facility] HEPATITIS A Unknown Completed [facility] Hep B, Adol or Pedi Dosage Unknown Completed [facility] HPV Unknown Completed [facility] Meningococcal Polysaccharide (groups A, C, Y and W-135) conjugate vaccine (MCV4P) Unknown Completed [facility] MMR Unknown Completed [facility] Polio (IPV/OPV) Unknown Completed [facility] Varicella (varivax)(chicken pox) Unknown Completed [facility] Pneumococcal 7 Conjugate, PCV7 (Prevnar7) Unknown Completed [facility] Influenza Virus Vaccine Quad IM, Preserv and ABX Free 6 MO-64 YRS (FLUCELVAX) Unknown Completed [facility] Influenza Virus Vaccine Quad .5 mL IM 6+ MO (FLUZONE/FLULAVAL/FL UARIX) Unknown Completed [facility] TDAP Unknown Completed [facility] DTAP Unknown Completed [facility] HIB 4 Dose Schedule Unknown Completed [facility] HEPATITIS A Unknown Completed [facility] Hep B, Adol or Pedi Dosage Unknown Completed [facility] HPV Unknown Completed [facility] Meningococcal Polysaccharide (groups A, C, Y and W-135) conjugate vaccine (MCV4P) Unknown Completed [facility] MMR Unknown Completed [facility] Polio (IPV/OPV) Unknown Completed [facility] Varicella (varivax)(chicken pox) Unknown Completed [facility] Pneumococcal 7 Conjugate, PCV7 (Prevnar7) Unknown Completed [facility] Influenza Virus Vaccine Quad IM, Preserv and ABX Free 6 MO-64 YRS (FLUCELVAX) Unknown Completed [facility] Influenza Virus Vaccine Quad .5 mL IM 6+ MO (FLUZONE/FLULAVAL/FL UARIX) Unknown Completed [facility] TDAP Unknown Completed [facility] DTAP Unknown Completed [facility] HIB 4 Dose Schedule Unknown Completed [facility] HEPATITIS A Unknown Completed [facility] Hep B, Adol or Pedi Dosage Unknown Completed [facility] HPV Unknown Completed [facility] Meningococcal Polysaccharide (groups A, C, Y and W-135) conjugate vaccine (MCV4P) Unknown Completed [facility] MMR Unknown Completed [facility] Polio (IPV/OPV) Unknown Completed [facility] Varicella (varivax)(chicken pox) Unknown Completed [facility] Pneumococcal 7 Conjugate, PCV7 (Prevnar7) Unknown Completed [facility] Influenza Virus Vaccine Quad IM, Preserv and ABX Free 6 MO-64 YRS (FLUCELVAX) Unknown Completed [facility] Influenza Virus Vaccine Quad .5 mL IM 6+ MO (FLUZONE/FLULAVAL/FL UARIX) Unknown Completed [facility] TDAP Unknown Completed [facility] DTAP Unknown Completed [facility] HIB 4 Dose Schedule Unknown Completed [facility] HEPATITIS A Unknown Completed [facility] Hep B, Adol or Pedi Dosage Unknown Completed [facility] HPV Unknown Completed [facility] Meningococcal Polysaccharide (groups A, C, Y and W-135) conjugate vaccine (MCV4P) Unknown Completed [facility] MMR Unknown Completed [facility] Polio (IPV/OPV) Unknown Completed [facility] Varicella (varivax)(chicken pox) Unknown Completed [facility] Pneumococcal 7 Conjugate, PCV7 (Prevnar7) Unknown Completed [facility] Influenza Virus Vaccine Quad IM, Preserv and ABX Free 6 MO-64 YRS (FLUCELVAX) Unknown Completed [facility] HEPATITIS A Unknown Completed [facility] Meningococcal Polysaccharide (groups A, C, Y and W-135) conjugate vaccine (MCV4P) Unknown Completed [facility] Pneumococcal 7 Conjugate, PCV7 (Prevnar7) Unknown Completed [facility] Influenza Virus Vaccine Quad IM, Preserv and ABX Free 6 MO-64 YRS (FLUCELVAX) Unknown Completed [facility] Influenza Virus Vaccine Quad .5 mL IM 6+ MO (FLUZONE/FLULAVAL/FL UARIX) Unknown Completed [facility] TDAP Unknown Completed [facility] DTAP Unknown Completed [facility] HIB 4 Dose Schedule Unknown Completed [facility] Hep B, Adol or Pedi Dosage Unknown Completed [facility] [facility] Unknown Completed [facility] MMR Unknown Completed [facility] Polio (IPV/OPV) Unknown Completed [facility] Varicella (varivax)(chicken pox) Unknown Completed [facility] Influenza Virus Vaccine Quad .5 mL IM 6+ MO (FLUZONE/FLULAVAL/FL UARIX) Unknown Completed [facility] DTAP Unknown Completed [facility] HIB 4 Dose Schedule Unknown Completed [facility] HEPATITIS A Unknown Completed [facility] Hep B, Adol or Pedi Dosage Unknown Completed [facility] HPV Unknown Completed [facility] Meningococcal Polysaccharide (groups A, C, Y and W-135) conjugate vaccine (MCV4P) Unknown Completed [facility] MMR Unknown Completed [facility] Polio (IPV/OPV) Unknown Completed [facility] Varicella (varivax)(chicken pox) Unknown Completed [facility] Pneumococcal 7 Conjugate, PCV7 (Prevnar7) Unknown Completed [facility] TDAP Unknown Completed [facility] Influenza Virus Vaccine Quad IM, Preserv and ABX Free 6 MO-64 YRS (FLUCELVAX) Unknown Completed [facility] Influenza Virus Vaccine Quad .5 mL IM 6+ MO (FLUZONE/FLULAVAL/FL UARIX) Unknown Completed [facility] TDAP Unknown Completed [facility] DTAP Unknown Completed [facility] HIB 4 Dose Schedule Unknown Completed [facility] HEPATITIS A Unknown Completed [facility] Hep B, Adol or Pedi Dosage Unknown Completed [facility] HPV Unknown Completed [facility] Meningococcal Polysaccharide (groups A, C, Y and W-135) conjugate vaccine (MCV4P) Unknown Completed [facility] MMR Unknown Completed [facility] Polio (IPV/OPV) Unknown Completed [facility] Varicella (varivax)(chicken pox) Unknown Completed [facility] Pneumococcal 7 Conjugate, PCV7 (Prevnar7) Unknown Completed [facility] Influenza Virus Vaccine Quad IM, Preserv and ABX Free 6 MO-64 YRS (FLUCELVAX) Unknown Completed [facility] Influenza Virus Vaccine Quad .5 mL IM 6+ MO (FLUZONE/FLULAVAL/FL UARIX) Unknown Completed [facility] TDAP Unknown Completed [facility] DTAP Unknown Completed [facility] HIB 4 Dose Schedule Unknown Completed [facility] HEPATITIS A Unknown Completed [facility] Hep B, Adol or Pedi Dosage Unknown Completed [facility] HPV Unknown Completed [facility] Meningococcal Polysaccharide (groups A, C, Y and W-135) conjugate vaccine (MCV4P) Unknown Completed [facility] MMR Unknown Completed [facility] Polio (IPV/OPV) Unknown Completed [facility] Varicella (varivax)(chicken pox) Unknown Completed [facility] Pneumococcal 7 Conjugate, PCV7 (Prevnar7) Unknown Completed [facility] Influenza Virus Vaccine Quad IM, Preserv and ABX Free 6 MO-64 YRS (FLUCELVAX) Unknown Completed [facility] Influenza Virus Vaccine Quad .5 mL IM 6+ MO (FLUZONE/FLULAVAL/FL UARIX) Unknown Completed [facility] TDAP Unknown Completed [facility] DTAP Unknown Completed [facility] HIB 4 Dose Schedule Unknown Completed [facility] HEPATITIS A Unknown Completed [facility] Hep B, Adol or Pedi Dosage Unknown Completed [facility] HPV Unknown Completed [facility] Meningococcal Polysaccharide (groups A, C, Y and W-135) conjugate vaccine (MCV4P) Unknown Completed [facility] MMR Unknown Completed [facility] Polio (IPV/OPV) Unknown Completed [facility] Varicella (varivax)(chicken pox) Unknown Completed [facility] Pneumococcal 7 Conjugate, PCV7 (Prevnar7) Unknown Completed [facility] Influenza Virus Vaccine Quad IM, Preserv and ABX Free 6 MO-64 YRS (FLUCELVAX) Unknown Completed [facility] Vital Signs Vital Name Observation Time Observation Value Comments S jazzy Systolic blood pressure 2024-09-04 17:10:00 121 mm[Hg] [facility] Diastolic blood pressure 2024-09-04 17:10:00 80 mm[Hg] [facility] Heart rate 2024-09-04 17:10:00 85 /min Unive [facility] Body temperature 2024-09-04 17:10:00 36.67 Eryn [facility] Respiratory rate 2024-09-04 17:10:00 18 /min [facility] Body height 2024-09-04 17:10:00 157.5 cm [facility] Body weight 2024-09-04 17:10:00 72.666 kg [facility] BMI 2024-09-04 17:10:00 29.30 kg/m2 [facility] Systolic blood pressure 2024-05-26 19:52:00 109 mm[Hg] [facility] Diastolic blood pressure 2024-05-26 19:52:00 71 mm[Hg] [facility] Heart rate 2024-05-26 19:52:00 70 /min Unive [facility] Body height 2024-05-26 19:52:00 160 cm [facility] Body weight 2024-05-26 19:52:00 74.027 kg [facility] BMI 2024-05-26 19:52:00 28.91 kg/m2 [facility] Systolic blood pressure 2024-03-31 14:03:00 144 mm[Hg] [facility] Diastolic blood pressure 2024-03-31 14:03:00 98 mm[Hg] [facility] Heart rate 2024-03-31 14:02:00 78 /min Unive [facility] Body height 2024-03-31 14:02:00 160 cm [facility] Body weight 2024-03-31 14:02:00 73.664 kg [facility] BMI 2024-03-31 14:02:00 28.77 kg/m2 [facility] Systolic blood pressure 2024-03-03 21:05:00 105 mm[Hg] [facility] Diastolic blood pressure 2024-03-03 21:05:00 70 mm[Hg] [facility] Heart rate 2024-03-03 21:05:00 74 /min Unive [facility] Body temperature 2024-03-03 21:05:00 36.17 Eryn [facility] Respiratory rate 2024-03-03 21:05:00 18 /min [facility] Body height 2024-03-03 21:05:00 160 cm [facility] Body weight 2024-03-03 21:05:00 76.658 kg [facility] BMI 2024-03-03 21:05:00 29.94 kg/m2 [facility] Systolic blood pressure 2024-01-31 18:38:00 126 mm[Hg] [facility] Diastolic blood pressure 2024-01-31 18:38:00 79 mm[Hg] [facility] Heart rate 2024-01-31 18:38:00 91 /min Unive [facility] Body temperature 2024-01-31 18:38:00 36.33 Eryn [facility] Body height 2024-01-31 18:38:00 160 cm [facility] Body weight 2024-01-31 18:38:00 79.924 kg [facility] BMI 2024-01-31 18:38:00 31.21 kg/m2 [facility] Systolic blood pressure 2024-01-24 16:15:00 126 mm[Hg] [facility] Diastolic blood pressure 2024-01-24 16:15:00 75 mm[Hg] [facility] Heart rate 2024-01-24 16:15:00 74 /min Unive [facility] Body temperature 2024-01-24 16:15:00 36.72 Eryn [facility] Respiratory rate 2024-01-24 16:15:00 16 /min [facility] Oxygen saturation in Arterial blood by Pulse oximetry 2024-01-24 16:15:00 100 /min [facility] Body height 2024-01-23 10:45:00 160 cm [facility] Systolic blood pressure 2024-01-23 14:30:00 93 mm[Hg] [facility] Diastolic blood pressure 2024-01-23 14:30:00 65 mm[Hg] [facility] Heart rate 2024-01-23 14:30:00 72 /min Unive [facility] Oxygen saturation in Arterial blood by Pulse oximetry 2024-01-23 14:30:00 99 /min [facility] Body temperature 2024-01-23 14:05:00 36 Eryn [facility] Respiratory rate 2024-01-23 14:05:00 16 /min [facility] Body height 2024-01-23 10:45:00 160 cm [facility] Systolic blood pressure 2024-01-17 13:30:00 112 mm[Hg] [facility] Diastolic blood pressure 2024-01-17 13:30:00 72 mm[Hg] [facility] Heart rate 2024-01-17 13:30:00 89 /min Unive [facility] Body temperature 2024-01-17 13:30:00 36.67 Eryn [facility] Respiratory rate 2024-01-17 13:30:00 18 /min [facility] Body height 2024-01-17 13:30:00 160 cm [facility] Body weight 2024-01-17 13:30:00 86.728 kg [facility] BMI 2024-01-17 13:30:00 33.87 kg/m2 [facility] Systolic blood pressure 2024-01-11 02:30:00 122 mm[Hg] [facility] Diastolic blood pressure 2024-01-11 02:30:00 77 mm[Hg] [facility] Heart rate 2024-01-11 02:30:00 82 /min Unive [facility] Oxygen saturation in Arterial blood by Pulse oximetry 2024-01-11 02:30:00 100 /min [facility] Body temperature 2024-01-11 00:08:00 36.83 Eryn [facility] Respiratory rate 2024-01-10 23:47:00 22 /min [facility] Body weight 2024-01-10 23:47:00 86.728 kg [facility] BMI 2024-01-10 23:47:00 33.87 kg/m2 [facility] Systolic blood pressure 2024-01-10 13:17:00 117 mm[Hg] [facility] Diastolic blood pressure 2024-01-10 13:17:00 73 mm[Hg] [facility] Heart rate 2024-01-10 13:17:00 90 /min Unive [facility] Body temperature 2024-01-10 13:17:00 36.94 Eryn [facility] Body weight 2024-01-10 13:17:00 86.093 kg [facility] BMI 2024-01-10 13:17:00 33.62 kg/m2 [facility] Systolic blood pressure 2024-01-03 19:43:00 125 mm[Hg] [facility] Diastolic blood pressure 2024-01-03 19:43:00 72 mm[Hg] [facility] Heart rate 2024-01-03 19:43:00 90 /min Unive [facility] Body temperature 2024-01-03 19:43:00 37.22 Eryn [facility] Body weight 2024-01-03 19:43:00 85.458 kg [facility] BMI 2024-01-03 19:43:00 33.37 kg/m2 [facility] Heart rate 2023-12-31 22:15:00 85 [facility] Oxygen saturation in Arterial blood by Pulse oximetry 2023-12-31 22:15:00 97 /min [facility] Systolic blood pressure 2023-12-31 22:00:00 106 mm[Hg] [facility] Diastolic blood pressure 2023-12-31 22:00:00 59 mm[Hg] [facility] Body temperature 2023-12-31 19:00:00 36.89 Eryn [facility] Systolic blood pressure 2023-12-20 15:26:00 109 mm[Hg] [facility] Diastolic blood pressure 2023-12-20 15:26:00 73 mm[Hg] [facility] Heart rate 2023-12-20 15:26:00 104 /min Unive [facility] Body temperature 2023-12-20 15:26:00 36.83 Eryn [facility] Respiratory rate 2023-12-20 15:26:00 18 /min [facility] Body height 2023-12-20 15:26:00 160 cm [facility] Body weight 2023-12-20 15:26:00 83.643 kg [facility] BMI 2023-12-20 15:26:00 32.66 kg/m2 [facility] Systolic blood pressure 2023-12-13 16:24:00 130 mm[Hg] [facility] Diastolic blood pressure 2023-12-13 16:24:00 81 mm[Hg] [facility] Heart rate 2023-12-13 16:24:00 98 /min Unive [facility] Body temperature 2023-12-13 16:24:00 37.22 Eryn [facility] Respiratory rate 2023-12-13 16:24:00 22 /min [facility] Body height 2023-12-13 16:24:00 160 cm [facility] Body weight 2023-12-13 16:24:00 83.008 kg [facility] BMI 2023-12-13 16:24:00 32.42 kg/m2 [facility] Oxygen saturation in Arterial blood by Pulse oximetry 2023-12-13 16:24:00 100 /min [facility] Systolic blood pressure 2023-12-05 16:16:00 111 mm[Hg] [facility] Diastolic blood pressure 2023-12-05 16:16:00 75 mm[Hg] [facility] Heart rate 2023-12-05 16:16:00 100 /min [facility] Body temperature 2023-12-05 16:16:00 36.61 Eryn [facility] Body height 2023-12-05 16:16:00 160 cm [facility] Body weight 2023-12-05 16:16:00 83.19 kg [facility] BMI 2023-12-05 16:16:00 32.49 kg/m2 [facility] Heart rate 2023-11-24 03:30:00 86 /min Unive [facility] Oxygen saturation in Arterial blood by Pulse oximetry 2023-11-24 03:30:00 98 /min [facility] Systolic blood pressure 2023-11-24 02:19:00 120 mm[Hg] [facility] Diastolic blood pressure 2023-11-24 02:19:00 77 mm[Hg] [facility] Body temperature 2023-11-24 02:19:00 37.06 Eryn [facility] Respiratory rate 2023-11-24 02:19:00 20 /min [facility] Body height 2023-11-24 02:19:00 160 cm [facility] Body weight 2023-11-24 02:19:00 81.647 kg [facility] BMI 2023-11-24 02:19:00 31.89 kg/m2 [facility] Systolic blood pressure 2023-11-21 17:08:00 107 mm[Hg] [facility] Diastolic blood pressure 2023-11-21 17:08:00 76 mm[Hg] [facility] Heart rate 2023-11-21 17:08:00 113 /min Unive [facility] Body temperature 2023-11-21 17:08:00 36.5 Eryn [facility] Respiratory rate 2023-11-21 17:08:00 18 /min [facility] Body height 2023-11-21 17:08:00 160 cm [facility] Body weight 2023-11-21 17:08:00 81.012 kg [facility] BMI 2023-11-21 17:08:00 31.64 kg/m2 [facility] Oxygen saturation in Arterial blood by Pulse oximetry 2023-11-21 17:08:00 98 /min [facility] Systolic blood pressure 2023-11-07 21:48:00 107 mm[Hg] [facility] Diastolic blood pressure 2023-11-07 21:48:00 69 mm[Hg] [facility] Heart rate 2023-11-07 21:48:00 89 /min Unive [facility] Body temperature 2023-11-07 21:48:00 36.78 Eryn [facility] Respiratory rate 2023-11-07 21:48:00 18 /min [facility] Body height 2023-11-07 21:48:00 160 cm [facility] Body weight 2023-11-07 21:48:00 82.01 kg [facility] BMI 2023-11-07 21:48:00 32.03 kg/m2 [facility] Systolic blood pressure 2023-10-11 22:45:00 110 mm[Hg] [facility] Diastolic blood pressure 2023-10-11 22:45:00 68 mm[Hg] [facility] Heart rate 2023-10-11 22:45:00 109 /min Unive [facility] Body temperature 2023-10-11 22:45:00 36.83 Eryn [facility] Respiratory rate 2023-10-11 22:45:00 20 /min [facility] Oxygen saturation in Arterial blood by Pulse oximetry 2023-10-11 22:45:00 99 /min [facility] Systolic blood pressure 2023-10-10 20:18:00 125 mm[Hg] [facility] Diastolic blood pressure 2023-10-10 20:18:00 80 mm[Hg] [facility] Heart rate 2023-10-10 20:18:00 131 /min Unive [facility] Body temperature 2023-10-10 20:18:00 38.06 Eryn [facility] Respiratory rate 2023-10-10 20:18:00 17 /min [facility] Body height 2023-10-10 20:18:00 162.6 cm [facility] Body weight 2023-10-10 20:18:00 77.202 kg [facility] BMI 2023-10-10 20:18:00 29.21 kg/m2 [facility] Systolic blood pressure 2023-09-12 16:19:00 110 mm[Hg] [facility] Diastolic blood pressure 2023-09-12 16:19:00 74 mm[Hg] [facility] Heart rate 2023-09-12 16:19:00 99 /min Unive [facility] Body temperature 2023-09-12 16:19:00 37 Eryn [facility] Body height 2023-09-12 16:19:00 160 cm [facility] Body weight 2023-09-12 16:19:00 75.66 kg [facility] BMI 2023-09-12 16:19:00 29.55 kg/m2 [facility] Systolic blood pressure 2023-08-29 15:39:00 132 mm[Hg] [facility] Diastolic blood pressure 2023-08-29 15:39:00 72 mm[Hg] [facility] Heart rate 2023-08-29 15:39:00 89 /min Unive [facility] Body temperature 2023-08-29 15:39:00 36.39 Eryn [facility] Body height 2023-08-29 15:39:00 160 cm [facility] Body weight 2023-08-29 15:39:00 74.753 kg [facility] BMI 2023-08-29 15:39:00 29.19 kg/m2 [facility] Systolic blood pressure 2023-08-03 16:38:00 111 mm[Hg] [facility] Diastolic blood pressure 2023-08-03 16:38:00 72 mm[Hg] [facility] Heart rate 2023-08-03 16:38:00 73 /min Unive [facility] Body temperature 2023-08-03 16:38:00 36.72 Eryn [facility] Respiratory rate 2023-08-03 16:38:00 16 /min [facility] Body height 2023-08-03 16:38:00 160 cm [facility] Body weight 2023-08-03 16:38:00 70.308 kg [facility] BMI 2023-08-03 16:38:00 27.46 kg/m2 [facility] Systolic blood pressure 2023-07-06 13:39:00 111 mm[Hg] [facility] Diastolic blood pressure 2023-07-06 13:39:00 75 mm[Hg] [facility] Heart rate 2023-07-06 13:39:00 77 /min Unive [facility] Respiratory rate 2023-07-06 13:39:00 18 /min [facility] Body height 2023-07-06 13:39:00 160 cm [facility] Body weight 2023-07-06 13:39:00 68.947 kg [facility] BMI 2023-07-06 13:39:00 26.93 kg/m2 [facility] Systolic blood pressure 2023-06-08 19:35:00 108 mm[Hg] [facility] Diastolic blood pressure 2023-06-08 19:35:00 69 mm[Hg] [facility] Heart rate 2023-06-08 19:35:00 91 /min Unive [facility] Respiratory rate 2023-06-08 19:35:00 18 /min [facility] Body height 2023-06-08 19:35:00 160 cm [facility] Body weight 2023-06-08 19:35:00 67.586 kg [facility] BMI 2023-06-08 19:35:00 26.39 kg/m2 [facility] Systolic blood pressure 2023-05-17 16:40:00 112 mm[Hg] [facility] Diastolic blood pressure 2023-05-17 16:40:00 72 mm[Hg] [facility] Heart rate 2023-05-17 16:40:00 89 /min Unive [facility] Respiratory rate 2023-05-17 16:40:00 18 /min [facility] Body height 2023-05-17 16:40:00 160 cm [facility] Body weight 2023-05-17 16:40:00 65.318 kg [facility] BMI 2023-05-17 16:40:00 25.51 kg/m2 [facility] Systolic blood pressure 2023-04-11 15:23:00 108 mm[Hg] [facility] Diastolic blood pressure 2023-04-11 15:23:00 71 mm[Hg] [facility] Heart rate 2023-04-11 15:23:00 77 /min [facility] Body temperature 2023-04-11 15:23:00 36.78 Eryn [facility] Respiratory rate 2023-04-11 15:23:00 18 /min [facility] Body height 2023-04-11 15:23:00 160 cm [facility] Body weight 2023-04-11 15:23:00 63.866 kg [facility] BMI 2023-04-11 15:23:00 24.94 kg/m2 [facility] Oxygen saturation in Arterial blood by Pulse oximetry 2023-04-11 15:23:00 98 /min [facility] Systolic blood pressure 2023-03-21 16:08:00 97 mm[Hg] [facility] Diastolic blood pressure 2023-03-21 16:08:00 63 mm[Hg] [facility] Heart rate 2023-03-21 16:08:00 75 /min [facility] Body temperature 2023-03-21 16:08:00 36.67 Eryn [facility] Respiratory rate 2023-03-21 16:08:00 16 /min [facility] Body weight 2023-03-21 16:08:00 65.318 kg [facility] BMI 2023-03-21 16:08:00 26.34 kg/m2 [facility] Oxygen saturation in Arterial blood by Pulse oximetry 2023-03-21 16:08:00 98 /min [facility] Systolic blood pressure 2023-02-06 21:38:00 124 mm[Hg] [facility] Diastolic blood pressure 2023-02-06 21:38:00 73 mm[Hg] [facility] Heart rate 2023-02-06 21:38:00 88 /min Unive [facility] Body temperature 2023-02-06 21:38:00 37.33 Eryn [facility] Respiratory rate 2023-02-06 21:38:00 17 /min [facility] Body weight 2023-02-06 21:38:00 64.501 kg [facility] BMI 2023-02-06 21:38:00 26.01 kg/m2 [facility] Oxygen saturation in Arterial blood by Pulse oximetry 2023-02-06 21:38:00 99 /min [facility] Systolic blood pressure 2022-05-19 19:39:00 114 mm[Hg] [facility] Diastolic blood pressure 2022-05-19 19:39:00 74 mm[Hg] [facility] Heart rate 2022-05-19 19:39:00 70 /min Unive [facility] Respiratory rate 2022-05-19 19:39:00 20 /min [facility] Body height 2022-05-19 19:39:00 157.5 cm [facility] Body weight 2022-05-19 19:39:00 62.37 kg [facility] BMI 2022-05-19 19:39:00 25.15 kg/m2 [facility] Oxygen saturation in Arterial blood by Pulse oximetry 2022-05-19 19:39:00 94 /min [facility] Procedures Procedure Date / Time Performed Performing Clinician Source POCT URINALYSIS W/O SPECIFIC GRAVITY 2024-09-04 17:13:00 Laron Mooney [facility] POCT URINALYSIS W/O SPECIFIC GRAVITY 2024-05-26 00:00:00 Laron Mooney [facility] POCT TEST 2024-03-03 00:00:00 Laron Mooney [facility] [facility] WITH DIFF 2024-01-24 08:56:00 Laron Mooney [facility] CBC WITH DIFF 2024-01-24 08:56:00 Laron Mooney [facility] SECTION 2024-01-23 12:37:00 MooneyLaron [facility] SECTION 2024-01-23 12:37:00 Laron Mooney [facility] CBC WITH DIFF 2024-01-23 10:55:00 MooneyLaron [facility] HEPATITIS B SURFACE ANTIGEN 2024-01-23 10:55[facility]00 [facility] 2024-01-23 10:55:00 Mooney [facility] RHO (D) IMMUNE GLOBULIN 2024-01-23 10:55:00 Vinicio Laron [facility] ADC OR ROGELIO ONLY - RPR 2024-01-23 10:55:00 Vinicio Lissett ramin [facility] HIV 1/2 AG-AB WITH REFLEX 2024-01-23 10:55:00 Vinicio Lissett ramin [facility] CBC WITH DIFF 2024-01-23 10:55:00 MooneyLaron [facility] HEPATITIS B SURFACE ANTIGEN 2024-01-23 10:55:00 MooneyLaron [facility] HB ABO GROUPING 2024-01-23 10:55:00 MooneyLaron [facility] RHO (D) IMMUNE GLOBULIN 2024-01-23 10:55:00 [facility] ADC [facility] R[facility] ONLY - RPR 2024-01-23 10:55:00 Vinicio Lissett ramin [facility] HIV 1/2 AG-AB WITH REFLEX 2024-01-23 10:55:00 Lissett Mooney [facility] POCT URINALYSIS W/O SPECIFIC GRAVITY 2024-01-17 00:00:00 Vinicio Laron [facility] URINALYSIS 2024-01-11 01:24:00 Magdalene Lozoya [facility] POCT URINALYSIS W/O SPECIFIC GRAVITY 2024-01-10 00:00:00 Vinicio Laron [facility] >14 WEEKS US LIMITED 2024-01-03 22:02:26 VinicioLaron Pietro [facility] POCT URINALYSIS W/O SPECIFIC GRAVITY 2024-01-03 00:00:00 VinicioLaron Pietro [facility] NON-STRESS TEST 2023-12-31 22:19:22 VinicioAnnieen Jacquie naz [facility] SECOND AND THIRD TRIMESTER ULTRASOUND 2023-12-24 20:08:00 VinicioLaron Pietro [facility] POCT URINALYSIS W/O SPECIFIC GRAVITY 2023-12-20 15:27:00 VinicioLaron Pietro [facility] ASSIGNMENT OF BENEFITS 2023-12-13 17:14:39 Docto r Unassigned, [place] [facility] CONSENT/REFUSAL FOR DIAGNOSIS AND TREATMENT 2023-12-13 16:12:06 Doctor Unassigned, [place] [facility] POCT URINALYSIS W/O SPECIFIC GRAVITY 2023-12-05 00:00:00 VinicioLaron Pietro [facility] COMP. METABOLIC PANEL (73564) 2023-11-24 02:40:00 Singer [facility] CBC WITH DIFF 2023-11-24 02:40:00 Walker, [facility] URINALYSIS 2023-11-24 02:40:00 Walker, [facility] CONSENT/REFUSAL FOR DIAGNOSIS AND TREATMENT 2023-11-24 02:12:30 Doctor Unassigned, [place] [facility] SECOND AND THIRD TRIMESTER ULTRASOUND 2023-11-23 15:32:00 VinicioAnniedena Westbrook [facility] DME/SUPPLY JUSTIFICATION 2023-11-22 06:01:00 Doc tor Unassigned, [place] [facility] POCT URINALYSIS W/O SPECIFIC GRAVITY 2023-11-21 00:00:00 Laron Mooney [facility] TDAP VACCINE, >11 YRS, IM 2023-11-07 21:58:11 Lissett Mooney [facility] POCT URINALYSIS W/O SPECIFIC GRAVITY 2023-11-07 00:00:00 Laron Mooney [facility] SECOND AND THIRD TRIMESTER ULTRASOUND 2023-11-02 20:03:00 VinicioLaron Pietro [facility] BASIC METABOLIC PANEL (NA, K, CL, CO2, GLUCOSE, BUN, CREATININE, CA) 2023-10-11 18:07:00 MooneyLaron Pietro [facility] BASIC METABOLIC PANEL (NA, K, CL, CO2, GLUCOSE, BUN, CREATININE, CA) 2023-10-11 09:49:00 VinicioLaron Pietro [facility] CBC WITH DIFF 2023-10-11 09:49:00 MooneyLaron Pietro [facility] NON-STRESS TEST 2023-10-11 00:24:07 Laron Mooney [facility] AMYLASE 2023-10-10 21:51:00 VinicioLaron Pietro [facility] LIPASE 2023-10-10 21:51:00 Vinicio Larondena Westbrook [facility] COMP. METABOLIC PANEL (35067) 2023-10-10 21:51:00 VinicioLaron Pietro [facility] CBC WITH DIFF 2023-10-10 21:51:00 MooneyLaron [facility] URINALYSIS 2023-10-10 21:51:00 VinicioLaron Pietro [facility] RAPID INFLUENZA A/B 2023-10-10 21:51:00 VinicioLaron [facility] COVID-19 (ID NOW RAPID TESTING) 2023-10-10 21:51:00 Vinicio Laron [facility] LAB ONLY COVID INTERPRETATION 2023-10-10 21:51:00 VinicioLaron [facility] CONSENT/REFUSAL FOR DIAGNOSIS AND TREATMENT 2023-10-10 20:45:21 Doctor Unassigned, [place] [facility] ASSIGNMENT OF BENEFITS 2023-10-10 20:44:44 Docto r Unassigned, [place] [facility] POCT URINALYSIS W/O SPECIFIC GRAVITY 2023-10-10 00:00:00 Vinicio Laron [facility] SECOND AND THIRD TRIMESTER ULTRASOUND 2023-10-05 14:22:00 Vinicio Laron [facility] MATERNAL SERUM SCREEN 1-Q 2023-09-12 16:35:00 Lissett Mooney [facility] SECOND AND THIRD TRIMESTER ULTRASOUND 2023-09-05 17:18:00 Laron Mooney [facility] POCT URINALYSIS W/O SPECIFIC GRAVITY 2023-08-29 00:00:00 VinicioLaron Pietro [facility] POCT URINALYSIS W/O SPECIFIC GRAVITY 2023-08-03 00:00:00 Laron Mooney [facility] HB ABO GROUPING 2023-07-06 16:53:00 Laron Mooney [facility] GLUCOSE 1 HOUR POST PRANDIAL 2023-07-06 16:06:00 Laron Mooney [facility] CBC WITH DIFF 2023-07-06 16:06:00 Laron Mooney [facility] FLU VACC (), 6 MO-64 YRS, .5ML, IM, QUAD (FLUCELVAX) 2023-07-06 13:41:16 Laron Mooney [facility] SCANNED LAB RESULTS 2023-07-06 05:01:00 Doctor U nassigned, [place] [facility] POCT URINALYSIS W/O SPECIFIC GRAVITY 2023-07-06 00:00:00 Laron Mooney [facility] US OB TRANSVAGINAL 2023-06-08 20:12:19 Laron Mooney [facility] HEEL SEAT FLAP [facility] ULTRASOUND 2023-06-08 05:01:00 Doc tor Unassigned, [place] [facility] POCT URINALYSIS W/O SPECIFIC GRAVITY 2023-06-08 00:00:00 Laron Mooney [facility] TOTAL BETA HCG ASSAY 2023-05-24 15:16:00 Garret Araujo [facility] POCT TEST 2023-05-17 00:00:00 Luis Araujo [facility] DISCLOSURE AND CONSENT, MEDICAL AND SURGICAL PROCEDURES 2023-04-11 05:01:00 Doctor Unassigned, [place] [facility] ASSIGNMENT OF BENEFITS 2023-02-06 21:31:42 Docto r Unassigned, [place] [facility] Encounters Start Date/Time End Date/Time Encounter Type Admission Type Attending [facility] Care Department Encounter ID Source 2024-01-17 09:02:01 Outpatient P LARON MOONEY [facility] DAG[facility] [id number] [facility] 2024-01-10 21:58:46 Outpatient X [facility] [id number] [facility] 2023-12-31 18:04:16 Outpatient P [facility] [id number] [facility] 2023-10-11 19:09:25 Outpatient P [facility] [id number] [facility] 2021-12-31 00:18:56 Outpatient X [facility] [id number] [facility] 2021-07-30 15:52:47 Outpatient P LARON MOONEY [facility] [id number] [facility] 2021-07-30 14:32:12 Emergency [facility] [id number] [facility] 2021-07-29 22:12:35 Emergency [facility] [id number] [facility] 2024-09-04 14:30:00 2024-09-04 14:30:00 Outpatient R JESÚS ZARATEL MAGDALENE ZARATE [facility] [id number] [facility] 2024-09-04 10:45:00 2024-09-04 11:22:25 Outpatient R LARON MOONEY VIEN [facility] [id number] [facility] 2024-09-04 10:45:00 2024-09-04 11:22:25 Office Visit Laron Mooney [facility] 1.2.840.114 350.1.13.10 4.2.7.2.686 [id number] 134 [id number] [facility] 2024-09-02 10:00:00 2024-09-02 10:00:00 Outpatient R ITZ ROB [facility] [id number] [facility] 2024-07-01 13:00:00 2024-07-01 13:00:00 Outpatient R LARON MOONEY LARON [facility] [id number] [facility] 2024-05-28 00:00:00 2024-06-28 18:18:32 Patient Secure Msg Doctor Unassigned, [place] Doctor Unassigned, [place] [facility] 1.2.840.114 350.1.13.10 4.2.7.2.686 [id number] 134 [id number] [facility] 2024-05-28 00:00:00 2024-05-28 12:56:46 Case Management Laron Mooney [facility] 1.2.840.114 350.1.13.10 4.2.7.2.686 [id number] 134 [id number] [facility] 2024-05-26 16:45:00 2024-05-26 17:00:00 Email Operations Manager Visit Pob, Adc Lab Main Laron Mooney Pietro Pob, Adc Lab Main [facility] 1.2.840.114 350.1.13.10 4.2.7.2.686 [id number] 353 [id number] [facility] 2024-05-26 16:45:00 2024-05-26 16:45:00 Outpatient R LARON MOONEY LARON [facility] [id number] [facility] 2024-05-26 14:30:00 2024-05-26 15:06:18 Office Visit Laron Mooney [facility] 1.2.840.114 350.1.13.10 4.2.7.2.686 [id number] 134 [id number] [facility] 2024-03-31 09:00:00 2024-03-31 09:14:25 [facility] [id number] [facility] 2024-03-31 09:00:00 2024-03-31 09:14:25 Office Visit Laron Mooney [facility] YOLANDA PIZANO [facility] 1.2.840.114 350.1.13.10 4.2.7.2.686 [id number] 134 [id number] [facility] 2024-03-04 16:03:32 2024-03-04 16:03:32 Outpatient [facility] [id number] Jesus Cunningham 2024-03-03 16:00:00 2024-03-03 16:32:28 Outpatient R LARON MOONEY [facility] [id number] [facility] 2024-03-03 16:00:00 2024-03-03 16:32:28 Routine Visit Laron Mooney [facility] BU[facility] 1.2.840.114 350.1.13.10 4.2.7.2.686 [id number] 134 [id number] [facility] 2024-02-28 13:00:00 2024-02-28 13:00:00 Outpatient R LARON MOONEY [facility] [id number] [facility] 2024-02-04 10:15:00 2024-02-04 10:15:00 Outpatient R LARON MOONEY [facility] [id number] [facility] 2024-01-31 13:15:00 2024-01-31 13:47:36 Outpatient R LARON MOONEY [facility] [id number] [facility] 2024-01-31 13:15:00 2024-01-31 13:47:36 Routine Visit Laron Mooney [facility] 1.2.840.114 350.1.13.10 4.2.7.2.686 [id number] 134 [id number] [facility] 2024-01-29 00:00:00 2024-01-29 00:00:00 Telephone Laron Mooney [facility] 1.2.840.114 350.1.13.10 4.2.7.2.686 [id number] 134 [id number] [facility] 2024-01-23 05:22:00 2024-01-24 13:50:00 Inpatient P LARON MOONEY [facility] [id number] [facility] 2024-01-23 05:22:00 2024-01-24 13:50:00 Hospital Encounter Laron Mooney [facility] 1.2.840.114 350.1.13.10 4.2.7.2.686 [id number] [facility] 2024-01-24 00:00:00 2024-01-24 00:00:00 Encounter [facility] 1.2.840.114 350.1.13.10 4.2.7.2.686 [id number] [facility] 2024-01-24 00:00:00 2024-01-24 00:00:00 Telephone Laron Mooney [facility] 1.2.840.114 350.1.13.10 4.2.7.2.686 [id number] 134 [id number] [facility] 2024-01-23 08:00:00 2024-01-23 09:39:00 Surgery Laron Mooney [facility] 1.2.840.114 350.1.13.10 4.2.7.2.686 [id number] [facility] 2024-01-17 08:00:00 2024-01-17 08:43:28 Outpatient R LARON MOONEY [facility] [id number] [facility] 2024-01-17 08:00:00 2024-01-17 08:43:28 Routine Visit Laron Mooney [facility] PROFESSIO [facility] 1.2.840.114 350.1.13.10 4.2.7.2.686 [id number] 134 [id number] [facility] 2024-01-17 00:00:00 2024-01-17 00:00:00 Patient Secure Msg Laron Mooney [facility] 1.2.840.114 350.1.13.10 4.2.7.2.686 [id number] 134 [id number] [facility] 2024-01-10 18:48:00 2024-01-10 21:50:00 Outpatient X CUMMINGS-CRISTHIAN S, MAGDALENE CUMMINGS-CRISTHIAN S, MAGDALENE [facility] [id number] [facility] 2024-01-10 18:48:00 2024-01-10 21:50:00 Emergency Cummings-Cristhian s, Magdalene [facility] 1.2.840.114 350.1.13.10 4.2.7.2.686 [id number] [id number] [facility] 2024-01-10 08:15:00 2024-01-10 08:53:06 Outpatient R VINICIO [facility] [id number] [facility] 2024-01-10 08:15:00 2024-01-10 08:53:06 Routine Visit Laron Mooney [facility] 1.2.840.114 350.1.13.10 4.2.7.2.686 [id number] 134 [id number] [facility] 2024-01-03 15:30:00 2024-01-03 15:45:00 Email Operations Manager Visit 2, Adc Lab Laron Mooney [facility] 1.2.840.114 350.1.13.10 4.2.7.2.686 [id number] [facility] 2024-01-03 15:30:00 2024-01-03 15:23:07 Outpatient R VINICIO [facility] [id number] [facility] 2024-01-03 13:30:00 2024-01-03 15:06:37 [facility] 1.2.840.114 350.1.13.10 4.2.7.2.686 [id number] 134 [id number] [facility] 2024-01-03 08:30:00 2024-01-03 08:30:00 Outpatient R LARON MOONEY [facility] [id number] [facility] 2024-01-02 00:00:00 2024-01-02 00:00:00 Telephone [facility]on [facility] 1.2.840.114 350.1.13.10 4.2.7.2.686 [id number] 134 [id number] [facility] 2023-12-31 13:49:00 2023-12-31 17:35:00 Outpatient P LARON MOONEY [facility] [id number] [facility] 2023-12-31 13:49:00 2023-12-31 17:35:00 Hospital Encounter Laron Mooney [facility] 1.2.840.114 350.1.13.10 4.2.7.2.686 [id number] [facility] 2023-12-30 00:00:00 2023-12-30 00:00:00 Patient Secure Msg Laron Mooney [facility] 1.2.840.114 350.1.13.10 4.2.7.2.686 [id number] 134 [id number] [facility] 2023-12-29 00:00:00 2023-12-29 00:00:00 Patient Secure Msg Laron Mooney [facility] 1.2.840.114 350.1.13.10 4.2.7.2.686 [id number] 134 [id number] [facility] 2023-12-24 14:30:00 2023-12-24 15:58:45 Outpatient P JOSE INFANTE SHANNON [facility] [id number] [facility] 2023-12-24 14:30:00 2023-12-24 15:58:45 Email Operations Manager Visit Ultrasound, Jose Catalan [facility] HEEL SEAT FLAP [facility]AP[facility]ER [facility] MAT[facility]NAL & [facility]ILD [facility] 1..114 350.1.13.10 4.2.7.2.686 [id number] [facility] 2023-12-21 00:00:00 2023-12-21 00:00:00 Patient Secure Msg Doctor Unassigned, [place] [facility] 1.84.114 350.1.13.10 4.2.7.2.686 [id number] 134 [id number] [facility] 2023-12-20 11:15:00 2023-12-20 11:30:00 Email Operations Manager Visit 2, Adc Lab Laron Mooney [facility] 1..114 350.1.13.10 4.2.7.2.686 [id number] 353 [id number] [facility] 2023-12-20 10:30:00 2023-12-20 10:41:50 Outpatient R LARON MOONEY [facility] [id number] [facility] 2023-12-20 10:30:00 2023-12-20 10:41:50 Routine Visit Laron Mooney [facility] 1.84.114 350.1.13.10 4.2.7.2.686 [id number] 134 [id number] [facility] 2023-12-13 11:26:00 2023-12-13 12:57:00 Emergency X HERMINIA MILLER [facility] ERT [id number] [facility] 2023-12-13 11:26:00 2023-12-13 12:57:00 Emergency Herminia Miller [facility] 1..114 350.1.13.10 4.2.7.2.686 [id number] [id number] [facility] 2023-12-13 00:00:00 2023-12-13 00:00:00 Telephone Laron Mooney [facility] PROFESSIO NAL BUILDING 1.2.840.114 350.1.13.10 4.2.7.2.686 [id number] 134 [id number] [facility] 2023-12-11 00:00:00 2023-12-11 00:00:00 Patient Secure Msg Laron Mooney [facility] 1.2.840.114 350.1.13.10 4.2.7.2.686 [id number] 134 [id number] [facility] 2023-12-05 10:30:00 2023-12-05 10:30:00 Routine Visit Laron Mooney [facility] BU[facility] 1.2.840.114 350.1.13.10 4.2.7.2.686 [id number] 134 [id number] [facility] 2023-12-05 10:30:00 2023-12-05 10:29:45 Outpatient R LARON MOONEY [facility] [id number] [facility] 2023-11-23 20:32:00 2023-11-23 22:12:00 Emergency X MOISE WALKER [facility] ERT [id number] [facility] 2023-11-23 20:32:00 2023-11-23 22:12:00 Emergency Moise Walker [facility] 1.2.840.114 350.1.13.10 4.2.7.2.686 [id number] [id number] [facility] 2023-11-23 09:00:00 2023-11-23 10:20:22 Outpatient R LARISSA VEGA SANGEETA [facility] [id number] [facility] 2023-11-23 09:00:00 2023-11-23 10:20:22 Email Operations Manager Visit Ultrasound, Larissa Graves [facility] HEEL SEAT FLAP STAP[facility]ER [facility] 1..114 350.1.13.10 4.2.7.2.686 [id number] [facility] 2023-11-22 00:00:00 2023-11-22 00:00:00 Telephone Laron Mooney [facility] 1.84.114 350.1.13.10 4.2.7.2.686 [id number] 134 [id number] [facility] 2023-11-22 00:00:00 2023-11-22 00:00:00 Orders Only Doctor Unassigned, [place] [facility] 1..114 350.1.13.10 4.2.7.2.686 [id number] [facility] 2023-11-22 00:00:00 2023-11-22 00:00:00 Patient Secure Msg Laron Mooney [facility] 1.84.114 350.1.13.10 4.2.7.2.686 [id number] 134 [id number] [facility] 2023-11-21 11:00:00 2023-11-21 11:40:29 Outpatient R LARON MOONEY [facility] [id number] [facility] 2023-11-21 11:00:00 2023-11-21 11:40:29 Routine Visit Laron Mooney [facility] 1.84.114 350.1.13.10 4.2.7.2.686 [id number] 134 [id number] [facility] 2023-11-09 00:00:00 2023-11-09 00:00:00 Telephone Laron Mooney [facility] 1.840.114 350.1.13.10 4.2.7.2.686 [id number] 134 [id number] [facility] 2023-11-08 11:00:00 2023-11-08 11:15:00 Email Operations Manager Visit 2, Adc Lab MooneyLaron Pietro [facility] 1.2.840.114 350.1.13.10 4.2.7.2.686 [id number] [facility] 2023-11-08 11:00:00 2023-11-08 11:00:00 Outpatient R LARON MOOENY [facility] [id number] [facility] 2023-11-08 00:00:00 2023-11-08 00:00:00 Telephone Vinicio Larondena Westbrook [facility] 1.2.840.114 350.1.13.10 4.2.7.2.686 [id number] 134 [id number] [facility] 2023-11-08 00:00:00 2023-11-08 00:00:00 Patient Outreach Veena Zayda Alycia [facility] 1.2.840.114 350.1.13.10 4.2.7.2.686 [id number] 134 [id number] [facility] 2023-11-08 00:00:00 2023-11-08 00:00:00 Patient Secure Msg MooneyLaron [facility] 1.2.840.114 350.1.13.10 4.2.7.2.686 [id number] 134 [id number] [facility] 2023-11-07 15:45:00 2023-11-07 16:15:41 Outpatient R LARON MOONEY [facility] [id number] [facility] 2023-11-07 15:45:00 2023-11-07 16:15:41 Routine Visit Laron Mooney [facility] 1.2.840.114 350.1.13.10 4.2.7.2.686 [id number] 134 [id number] [facility] 2023-11-02 13:45:00 2023-11-02 14:02:14 Outpatient P LARISSA VEGA SANGEETA [facility] [id number] [facility] 2023-11-02 13:45:00 2023-11-02 14:02:14 Email Operations Manager Visit Ultrasound, Larissa Graves [facility] HEEL SEAT FLAP [facility] 1.2.840.114 350.1.13.10 4.2.7.2.686 [id number] 369 [id number] [facility] 2023-10-26 00:00:00 2023-10-26 00:00:00 Patient Secure Msg Laron Mooney [facility] 1.2.840.114 350.1.13.10 4.2.7.2.686 [id number] 134 [id number] [facility] 2023-10-16 00:00:00 2023-10-16 00:00:00 Case Management Laron Mooney [facility] 1.2.840.114 350.1.13.10 4.2.7.2.686 [id number] 134 [id number] [facility] 2023-10-16 00:00:00 2023-10-16 00:00:00 Case Management Laron Mooney [facility] 1.2.840.114 350.1.13.10 4.2.7.2.686 [id number] 134 [id number] [facility] 2023-10-16 00:00:00 2023-10-16 00:00:00 Telephone Laron Mooney [facility] 1.2.840.114 350.1.13.10 4.2.7.2.686 [id number] 134 [id number] [facility] 2023-10-16 00:00:00 2023-10-16 00:00:00 Patient Secure Msg Doctor Unassigned, [place] [facility] 1.840.114 350.1.13.10 4.2.7.2.686 [id number] 134 [id number] [facility] 2023-10-10 14:44:00 2023-10-11 18:50:00 Outpatient P LARON MOONEY [facility] DAGO [id number] [facility] 2023-10-10 14:44:00 2023-10-11 18:50:00 Hospital Encounter Laron Mooney [facility] 1.84.114 350.1.13.10 4.2.7.2.686 [id number] [id number] [facility] 2023-10-10 14:15:00 2023-10-10 14:26:31 Outpatient R LARON MOONEY [facility] [id number] [facility] 2023-10-10 14:15:00 2023-10-10 14:26:31 Routine Visit Laron Mooney [facility] 1.840.114 350.1.13.10 4.2.7.2.686 [id number] 134 [id number] [facility] 2023-10-05 08:00:00 2023-10-05 08:57:49 Outpatient P NOE FUENTES [facility] [id number] [facility] 2023-10-05 08:00:00 2023-10-05 08:57:49 Email Operations Manager Visit Ultrasound, Noe Walls [facility] HEEL SEAT FLAP STAPLER [facility] 1.84.114 350.1.13.10 4.2.7.2.686 [id number] 369 [id number] [facility] 2023-10-05 00:00:00 2023-10-05 00:00:00 Telephone Laron Mooney [facility] 1.2.840.114 350.1.13.10 4.2.7.2.686 [id number] 134 [id number] [facility] 2023-10-05 00:00:00 2023-10-05 00:00:00 Patient Secure Msg Laron Mooney [facility] 1.2.840.114 350.1.13.10 4.2.7.2.686 [id number] 134 [id number] [facility] 2023-09-26 13:45:00 2023-09-26 13:45:00 Outpatient R LARON MOONEY [facility] [id number] [facility] 2023-09-12 10:00:00 2023-09-12 10:37:20 Outpatient R LARON MOONEY [facility] [id number] [facility] 2023-09-12 10:00:00 2023-09-12 10:37:20 Routine Visit Laron Mooney [facility] 1.2.840.114 350.1.13.10 4.2.7.2.686 [id number] 134 [id number] [facility] 2023-09-12 00:00:00 2023-09-12 00:00:00 Orders Only Laron Mooney [facility] 1.2.840.114 350.1.13.10 4.2.7.2.686 [id number] [facility] 2023-09-06 00:00:00 2023-09-06 00:00:00 Telephone Laron Mooney [facility] 1.2.840.114 350.1.13.10 4.2.7.2.686 [id number] 134 [id number] [facility] 2023-09-05 11:00:00 2023-09-05 11:36:13 Outpatient P LUZ ELENA DECKER [facility] [id number] [facility] 2023-09-05 11:00:00 2023-09-05 11:36:13 Email Operations Manager Visit Ultrasound, Rosas Luz Elena Decker [facility] HEEL SEAT FLAP STAPLER [facility] MATERNAL & CHILD HEALTH [facility] 1..840.114 350.1.13.10 4.2.7.2.686 [id number] [facility] 2023-09-05 00:00:00 2023-09-05 00:00:00 Telephone Laron Mooney [facility] 1..840.114 350.1.13.10 4.2.7.2.686 [id number] 134 [id number] [facility] 2023-09-05 00:00:00 2023-09-05 00:00:00 Patient Secure Msg Doctor Unassigned, [place] [facility] 1..840.114 350.1.13.10 4.2.7.2.686 [id number] 134 [id number] [facility] 2023-08-29 09:45:00 2023-08-29 10:02:16 Outpatient R LARON MOONEY [facility] [id number] [facility] 2023-08-29 09:45:00 2023-08-29 10:02:16 Routine Visit MooneyLaron [facility] 1..840.114 350.1.13.10 4.2.7.2.686 [id number] 134 [id number] [facility] 2023-08-03 11:30:00 2023-08-03 11:59:25 Outpatient R LARON MOONEY [facility] [id number] [facility] 2023-08-03 11:30:00 2023-08-03 11:59:25 Routine Visit Laron Mooney [facility] 1.2.840.114 350.1.13.10 4.2.7.2.686 [id number] 134 [id number] [facility] 2023-07-19 00:00:00 2023-07-19 00:00:00 Telephone Laron Mooney [facility] 1.2.840.114 350.1.13.10 4.2.7.2.686 [id number] 134 [id number] [facility] 2023-07-19 00:00:00 2023-07-19 00:00:00 Telephone Laron Mooney [facility] 1.2.840.114 350.1.13.10 4.2.7.2.686 [id number] 134 [id number] [facility] 2023-07-17 00:00:00 2023-07-17 00:00:00 Telephone Vinicio Laron [facility] BUILDING 1.2.840.114 350.1.13.10 4.2.7.2.686 [id number] 134 [id number] [facility] 2023-07-06 09:30:00 2023-07-06 12:22:20 Email Operations Manager Visit Lab, Mahesh - [facility] 1.2840.114 350.1.13.10 4.2.7.2.686 [id number] 353 [id number] [facility] 2023-07-06 09:30:00 2023-07-06 09:30:00 Outpatient R VINICIO [facility] [id number] [facility] 2023-07-06 08:00:00 2023-07-06 09:13:22 Routine Visit Laron Mooney [facility] 1.2.840.114 350.1.13.10 4.2.7.2.686 [id number] 134 [id number] [facility] 2023-07-06 00:00:00 2023-07-06 00:00:00 Orders Only Doctor Unassigned, [place] [facility] 1.2.840.114 350.1.13.10 4.2.7.2.686 [id number] [id number] [facility] 2023-06-27 00:00:00 2023-06-27 00:00:00 Telephone Laron Mooney [facility] 1.2.840.114 350.1.13.10 4.2.7.2.686 [id number] 134 [id number] [facility] 2023-06-15 00:00:00 2023-06-15 00:00:00 Telephone Laron Mooney [facility] 1.2.840.114 350.1.13.10 4.2.7.2.686 [id number] 134 [id number] [facility] 2023-06-13 00:00:00 2023-06-13 00:00:00 Telephone Laron Mooney [facility]INIC 1.2.840.114 350.1.13.10 4.2.7.2.686 [id number] 134 [id number] [facility] 2023-06-12 00:00:00 2023-06-12 00:00:00 Case Management VinicioLaron [facility] 1.2.840.114 350.1.13.10 4.2.7.2.686 [id number] 134 [id number] [facility] 2023-06-11 08:36:02 2023-06-11 08:36:02 Outpatient [facility] [id number] Jesus Cunningham 2023-06-11 00:00:00 2023-06-11 00:00:00 Telephone Laron Mooney [facility] 1.2.840.114 350.1.13.10 4.2.7.2.686 [id number] 134 [id number] [facility] 2023-06-08 14:30:00 2023-06-08 14:57:46 Outpatient R LARON MOONEY [facility] [id number] [facility] 2023-06-08 14:30:00 2023-06-08 14:57:46 Initial Visit Laron Mooney [facility] 1.84.114 350.1.13.10 4.2.7.2.686 [id number] 134 [id number] [facility] 2023-06-08 00:00:00 2023-06-08 00:00:00 Orders Only Doctor Unassigned, [place] [facility] 1.2840.114 350.1.13.10 4.2.7.2.686 [id number] [id number] [facility] 2023-05-24 10:30:00 2023-05-24 14:26:49 Outpatient R EBENEZER ARAUJO [facility] [id number] [facility] 2023-05-24 10:30:00 2023-05-24 14:26:49 Email Operations Manager Visit Lab, Mahesh Araujo [facility] 1..840.114 350.1.13.10 4.2.7.2.686 [id number] 353 [id number] [facility] 2023-05-23 09:31:31 2023-05-23 09:31:31 Outpatient [facility] [id number] Jesus Cunningham 2023-05-18 00:00:00 2023-05-18 00:00:00 Telephone Ebenezer Araujo [facility] 1.840.114 350.1.13.10 4.2.7.2.686 [id number] 134 [id number] [facility] 2023-05-17 12:15:00 2023-05-17 12:30:00 Email Operations Manager Visit Lab, Mahesh Araujo [facility] 1..840.114 350.1.13.10 4.2.7.2.686 [id number] 353 [id number] [facility] 2023-05-17 11:30:00 2023-05-17 11:53:18 Outpatient R EBENEZER ARAUJO CHERYAL [facility] [id number] [facility] 2023-05-17 11:30:00 2023-05-17 11:53:18 Office Visit Ebenezer Araujo [facility] 1..840.114 350.1.13.10 4.2.7.2.686 [id number] 134 [id number] [facility] 2023-05-14 13:45:00 2023-05-14 13:45:00 Outpatient R EBENEZER ARAUJO CHERYAL [facility] [id number] [facility] 2023-04-11 09:00:00 2023-04-11 10:33:03 Outpatient R LARON MOONEY [facility] [id number] [facility] 2023-04-11 09:00:00 2023-04-11 10:33:03 [facility] 1..840.114 350.1.13.10 4.2.7.2.686 [id number] 134 [id number] [facility] 2023-04-11 00:00:00 2023-04-11 00:00:00 Orders Only Doctor Unassigned, [place] [facility] 1..840.114 350.1.13.10 4.2.7.2.686 [id number] [id number] [facility] 2023-03-21 11:00:00 2023-03-21 11:25:56 Outpatient R KENYA BELL [facility] [id number] [facility] 2023-03-21 11:00:00 2023-03-21 11:25:56 Urgent Care Kenya Bell Unknown, Attending [facility]?MARIELLA [facility] 1.2840.114 350.1.13.10 4.2.7.2.686 [id number] 370 [id number] [facility] 2023-02-06 16:40:00 2023-02-06 17:00:00 Urgent Care Yvan Goode Unknown, Attending [facility] 1.2.114 350.1.13.10 4.2.7.2.686 [id number] 370 [id number] [facility] 2023-02-06 16:40:00 2023-02-06 16:40:00 Outpatient R DALYNazYVAN [facility] [id number] [facility] 2023-02-06 00:00:00 2023-02-06 00:00:00 Orders Only Doctor Unassigned, [place] [facility] 1..114 350.1.13.10 4.2.7.2.686 [id number] [id number] [facility] 2022-09-12 13:30:00 2022-09-12 13:30:00 Outpatient LARON MALONE [facility] [id number] [facility] 2022-06-14 00:00:00 2022-06-14 00:00:00 Telephone Lisa Bo [facility] 1.84.114 350.1.13.10 4.2.7.2.686 [id number] 059 [id number] [facility] 2022-06-01 00:00:00 2022-06-01 00:00:00 Telephone Lisa Bo [facility] 1.840.114 350.1.13.10 4.2.7.2.686 [id number] 059 [id number] [facility] 2022-05-26 00:00:00 2022-05-26 00:00:00 Telephone Lisa BoJoselynLiana [facility] 1.2.840.114 350.1.13.10 4.2.7.2.686 [id number] [facility] 2022-05-25 08:30:00 2022-05-25 23:59:00 Outpatient R LISA BO [facility] [id number] [facility] 2022-05-25 08:30:00 2022-05-25 08:30:00 Outpatient R LISA BO [facility] [id number] [facility] 2022-05-19 13:00:00 2022-05-19 23:59:00 Outpatient R LISA BO [facility] [id number] [facility] 2022-05-19 15:00:00 2022-05-19 15:30:00 Office Visit Lisa Bo [facility] 1.2.840.114 350.1.13.10 4.2.7.2.686 [id number] [facility] 2022-05-19 15:00:00 2022-05-19 15:00:00 Outpatient R LISA BO [facility] [id number] [facility] 2022-05-16 00:00:00 2022-05-16 00:00:00 Orders Only Doctor Unassigned, [place] [facility] 1.2.840.114 350.1.13.10 4.2.7.2.686 [id number] [facility] 2022-05-15 13:20:00 2022-05-15 13:33:23 Outpatient R NEERU BYRD [facility] [id number] [facility] 2022-05-15 13:20:00 2022-05-15 13:33:23 Urgent Care Neeru Byrd [facility] 1.2840.114 350.1.13.10 4.2.7.2.686 [id number] 370 [id number] [facility] 2022-05-15 00:00:00 2022-05-15 00:00:00 Telephone Lisa Bo [facility] 1.2840.114 350.1.13.10 4.2.7.2.686 [id number] 059 [id number] [facility] 2022-05-14 15:07:00 2022-05-14 17:38:00 Emergency Stephanie Ro Megan [facility] 1.2840.114 350.1.13.10 4.2.7.2.686 [id number] [facility] 2022-05-14 15:07:00 2022-05-14 17:38:00 Emergency X STEPHANIE RO [facility] ERT [id number] [facility] 2022-05-14 00:00:00 2022-05-14 00:00:00 Case Management Lisa Bo [facility] 1.0.114 350.1.13.10 4.2.7.2.686 [id number] [facility] 2022-03-29 00:00:00 2022-03-29 00:00:00 Telephone Laron Mooney [facility] 1.2840.114 350.1.13.10 4.2.7.2.686 [id number] 134 [id number] [facility] 2022-03-29 00:00:00 2022-03-29 00:00:00 Orders Only Doctor Unassigned, [place] [facility] 1.2840.114 350.1.13.10 4.2.7.2.686 [id number] [id number] [facility] 2022-03-07 13:00:00 2022-03-07 13:50:06 Office Visit Laron Mooney [facility] 1.840.114 350.1.13.10 4.2.7.2.686 [id number] 134 [id number] [facility] 2022-03-07 13:00:00 2022-03-07 13:50:06 Outpatient R LARON MOONEY [facility] [id number] [facility] 2022-03-07 13:00:00 2022-03-07 13:00:00 Outpatient R LARON MOONEY [facility] [id number] [facility] 2022-03-07 00:00:00 2022-03-07 00:00:00 Orders Only Doctor Unassigned, [place] [facility] 1.840.114 350.1.13.10 4.2.7.2.686 [id number] [facility] 2022-02-13 10:45:00 2022-02-13 13:26:51 Outpatient R LARON MOONEY [facility] [id number] [facility] 2022-02-13 10:45:00 2022-02-13 13:26:51 Routine Visit Laorn Mooney [facility] 1..840.114 350.1.13.10 4.2.7.2.686 [id number] 134 [id number] [facility] 2022-01-30 05:46:00 2022-01-31 17:00:00 Inpatient P LARON MOONEY [facility] DAGO [id number] [facility] 2022-01-30 05:46:00 2022-01-31 17:00:00 Hospital Encounter Laron Mooney [facility] 1.2840.114 350.1.13.10 4.2.7.2.686 [id number] 083 [id number] [facility] 2022-01-30 08:00:00 2022-01-30 09:29:00 Surgery Laron Mooney [facility] 1.2840.114 350.1.13.10 4.2.7.2.686 [id number] [facility] 2022-01-28 11:15:00 2022-01-28 11:30:00 Email Operations Manager Visit Pob, Adc Lab Main Laron Mooney [facility] 1.2.114 350.1.13.10 4.2.7.2.686 [id number] 353 [id number] [facility] 2022-01-28 11:15:00 2022-01-28 11:15:00 Outpatient R VINICIO LARON [facility] [id number] [facility] 2022-01-28 11:00:00 2022-01-28 11:15:00 Laboratory Only Only, Adc Test Laron Mooney [facility] 1.20.114 350.1.13.10 4.2.7.2.686 [id number] 353 [id number] [facility] 2022-01-28 00:00:00 2022-01-28 00:00:00 Orders Only Doctor Unassigned, [place] [facility] 1.840.114 350.1.13.10 4.2.7.2.686 [id number] [id number] [facility] 2022-01-25 15:30:00 2022-01-25 15:45:00 Routine Visit Laron Mooney Anny Hernandez [facility] 1.840.114 350.1.13.10 4.2.7.2.686 [id number] 134 [id number] [facility] 2022-01-25 15:30:00 2022-01-25 15:30:00 Outpatient R ANNY YBARRA [facility] [id number] [facility] 2022-01-18 13:00:00 2022-01-18 13:36:58 Outpatient R LARON MOONEY [facility] [id number] [facility] 2022-01-18 13:00:00 2022-01-18 13:36:58 [facility]ine [facility] 1.2.840.114 350.1.13.10 4.2.7.2.686 [id number] 134 [id number] [facility] 2022-01-18 13:00:00 2022-01-18 13:00:00 Outpatient R LARON MOONEY [facility] [id number] [facility] 2022-01-11 14:00:00 2022-01-11 14:54:05 Outpatient R LARON MOONEY [facility] [id number] [facility] 2022-01-11 14:00:00 2022-01-11 14:54:05 Routine Visit Laron Mooney [facility] 1.2.840.114 350.1.13.10 4.2.7.2.686 [id number] 134 [id number] [facility] 2022-01-11 00:00:00 2022-01-11 00:00:00 Orders Only Doctor Unassigned, [place] [facility] 1.2.840.114 350.1.13.10 4.2.7.2.686 [id number] [id number] [facility] 2022-01-02 16:15:00 2022-01-02 16:47:19 Outpatient R AMADA ANNY [facility] [id number] [facility] 2022-01-02 16:15:00 2022-01-02 16:47:19 Routine Visit Laron Mooney Crisbeny Anny [facility] 1.2.840.114 350.1.13.10 4.2.7.2.686 [id number] 134 [id number] [facility] 2021-12-30 18:12:00 2021-12-30 23:05:00 Outpatient X JENNIFER WELDON [facility] DAGO [id number] [facility] 2021-12-30 18:12:00 2021-12-30 23:05:00 Emergency [place], Jennifer Carl [facility] 1.2840.114 350.1.13.10 4.2.7.2.686 [id number] [facility] 2021-12-30 00:00:00 2021-12-30 00:00:00 Telephone Laron Mooney Piet[facility] 1.284.114 350.1.13.10 4.2.7.2.686 [id number] 134 [id number] [facility] 2021-12-30 00:00:00 2021-12-30 00:00:00 Orders Only Doctor Unassigned, [place] [facility] 1.2840.114 350.1.13.10 4.2.7.2.686 [id number] [facility] 2021-12-26 10:30:00 2021-12-26 10:30:00 Outpatient R ANNY YBARRA [facility] [id number] [facility] 2021-12-12 13:15:00 2021-12-12 15:26:50 Outpatient R LARON MOONEY [facility] [id number] [facility] 2021-12-12 13:15:00 2021-12-12 15:26:50 Routine Visit Laron Mooney [facility] 1.84.114 350.1.13.10 4.2.7.2.686 [id number] 134 [id number] [facility] 2021-12-12 13:15:00 2021-12-12 15:26:50 Routine Visit Mooney, Laron [facility] 1.2.840.114 350.1.13.10 4.2.7.2.686 [id number] 134 [id number] [facility] 2021-12-12 00:00:00 2021-12-12 00:00:00 Telephone Laron Mooney [facility] 1.2.840.114 350.1.13.10 4.2.7.2.686 [id number] 134 [id number] [facility] 2021-12-05 00:00:00 2021-12-05 00:00:00 Case Management Anny Ybarra [facility] 1.2.840.114 350.1.13.10 4.2.7.2.686 [id number] 134 [id number] [facility] 2021-11-30 14:45:00 2021-11-30 14:57:17 Outpatient R ANNY YBARRA [facility] [id number] [facility] 2021-11-30 14:45:00 2021-11-30 14:57:17 Routine Visit Anny Ybarra [facility] 1.2.840.114 350.1.13.10 4.2.7.2.686 [id number] 134 [id number] [facility] 2021-11-13 00:00:00 2021-11-13 00:00:00 Case Management Laron Mooney [facility] 1.2.840.114 350.1.13.10 4.2.7.2.686 [id number] 134 [id number] [facility] 2021-11-09 14:00:00 2021-11-09 14:00:00 Email Operations Manager Visit 2, Adc Lab Laron Mooney [facility] 1.2.840.114 350.1.13.10 4.2.7.2.686 [id number] 353 [id number] [facility] 2021-11-09 13:00:00 2021-11-09 13:53:41 Outpatient R LARON MOONEY [facility] [id number] [facility] 2021-11-09 13:00:00 2021-11-09 13:53:41 [facility]ine [facility] 1..840.114 350.1.13.10 4.2.7.2.686 [id number] 134 [id number] [facility] 2021-10-24 11:15:00 2021-10-24 12:00:00 Email Operations Manager Visit Ultrasound, Jose Catalan [facility] HEEL SEAT FLAP STAP[facility]ER [facility] MATERNAL & CHILD [facility]ALTH [facility] 1.840.114 350.1.13.10 4.2.7.2.686 [id number] [facility] 2021-10-24 11:15:00 2021-10-24 11:15:00 Outpatient P JOSE INFANTE SHANNON [facility] [id number] [facility] 2021-10-14 11:30:00 2021-10-14 12:37:28 Outpatient R VINICIOLARON [facility] [id number] [facility] 2021-10-14 11:30:00 2021-10-14 12:37:28 Routine Visit Laron Mooney [facility] 1.84.114 350.1.13.10 4.2.7.2.686 [id number] [facility] 2021-09-21 00:00:00 2021-09-21 00:00:00 Patient Secure Msg Doctor Unassigned, [place] [facility] 1..840.114 350.1.13.10 4.2.7.2.686 [id number] [facility] 2021-09-19 00:00:00 2021-09-19 00:00:00 Case Management Anny Ybarra [facility] 1..840.114 350.1.13.10 4.2.7.2.686 [id number] [facility] 2021-09-16 11:15:00 2021-09-16 11:43:31 Outpatient R LARON MOONEY [facility] [id number] [facility] 2021-09-16 11:15:00 2021-09-16 11:43:31 Routine Visit Laron Mooney [facility] 1..840.114 350.1.13.10 4.2.7.2.686 [id number] [facility] 2021-09-16 11:15:00 2021-09-16 11:15:00 Outpatient R LARON MOONEY [facility] [id number] [facility] 2021-09-15 12:00:00 2021-09-15 12:00:00 Outpatient P [facility] [id number] [facility] 2021-09-12 12:23:27 2021-09-12 13:23:27 Email Operations Manager Visit Ultrasound, Herbert Keita [facility] HEEL SEAT FLAP [facility] 1..840.114 350.1.13.10 4.2.7.2.686 [id number] [facility] 2021-09-12 12:30:00 2021-09-12 12:30:00 Outpatient P HERBERT HUNT [facility] [id number] [facility] 2021-09-12 12:00:00 2021-09-12 12:00:00 Outpatient P [facility] [id number] [facility] 2021-09-12 08:00:00 2021-09-12 08:00:00 Outpatient P HERBERT HUNT [facility] [id number] [facility] 2021-09-07 00:00:00 2021-09-07 00:00:00 Telephone Laron Mooney [facility] 1.2.840.114 350.1.13.10 4.2.7.2.686 [id number] [facility] 2021-08-24 13:15:00 2021-08-24 15:23:43 Outpatient R LARON MOONEY [facility] [id number] [facility] 2021-08-24 13:07:21 2021-08-24 15:23:43 Email Operations Manager Visit 2, [facility] Laron Mooney [facility] 1..840.114 350.1.13.10 4.2.7.2.686 [id number] [facility] 2021-08-24 13:15:00 2021-08-24 13:15:00 Outpatient R LARON MOONEY [facility] [id number] [facility] 2021-08-19 11:21:36 2021-08-19 12:04:28 Routine Visit Laron oMoney [facility] 1..840.114 350.1.13.10 4.2.7.2.686 [id number] 134 [id number] [facility] 2021-08-19 10:15:00 2021-08-19 12:04:28 Outpatient R LARON MOONEY [facility] [id number] [facility] 2021-08-02 00:00:00 2021-08-02 00:00:00 Telephone Laron Mooney [facility] BUILDING 1..840.114 350.1.13.10 4.2.7.2.686 [id number] 134 [id number] [facility] 2021-07-27 00:00:00 2021-07-27 00:00:00 Case Management [facility] 1..840.114 350.1.13.10 4.2.7.2.686 [id number] 134 [id number] [facility] 2021-07-26 11:20:43 2021-07-26 11:54:36 Routine Visit [facility] 1.114 350.1.13.10 4.2.7.2.686 [id number] 134 [id number] [facility] 2021-07-26 11:15:00 2021-07-26 11:15:00 Outpatient R AMADA [facility] [id number] [facility] 2021-07-25 11:00:00 2021-07-25 11:00:00 [facility] [id number] [facility] 2021-07-20 11:00:00 2021-07-20 11:00:00 Outpatient R [facility] [id number] [facility] 2021-07-20 09:33:12 2021-07-20 09:38:55 Email Operations Manager Visit 2, Adc Lab Laron Mooney [facility] Building 1..840.114 350.1.13.10 4.2.7.2.686 [id number] [facility] 2021-07-20 09:30:00 2021-07-20 09:30:00 Outpatient R LARON MOONEY [facility] [id number] [facility] 2021-07-20 00:00:00 2021-07-20 00:00:00 Orders Only Doctor Unassigned, [place] [facility] 1.284.114 350.1.13.10 4.2.7.2.686 [id number] 009 [id number] [facility] 2021-07-12 00:00:00 2021-07-12 00:00:00 Telephone [facility], [facility] 1.2.840.114 350.1.13.10 4.2.7.2.686 [id number] 134 [id number] [facility] 2021-06-30 00:00:00 2021-06-30 00:00:00 Case Management Anny Ybarra [facility] Building 1.2.840.114 350.1.13.10 4.2.7.2.686 [id number] 134 [id number] [facility] 2021-06-27 12:56:44 2021-06-27 14:08:53 Initial Visit MooneyLaron [facility] 1.2.840.114 350.1.13.10 4.2.7.2.686 [id number] 134 [id number] [facility] 2021-06-27 14:00:00 2021-06-27 14:00:00 Outpatient LARON MALONE [facility] [id number] [facility] 2021-06-27 00:00:00 2021-06-27 00:00:00 Orders Only Doctor Unassigned, [place] [facility] 1.2.840.114 350.1.13.10 4.2.7.2.686 [id number] 009 [id number] [facility] 2021-06-17 00:00:00 2021-06-17 00:00:00 Telephone Lisa Mo 1.2.840.114 350.1.13.10 4.2.7.2.686 [id number] 086 [id number] [facility] 2021-06-13 10:00:00 2021-06-13 10:00:00 Outpatient LARON MALONE [facility] [id number] [facility] 2021-05-26 08:00:00 2021-05-26 08:00:00 Outpatient LARON MALONE [facility] [id number] [facility] 2020-11-25 10:30:00 2020-11-25 10:30:00 Outpatient R LARON MOONEY [facility] [id number] [facility] 2020-11-23 14:01:45 2020-11-23 14:34:40 Routine Visit Laron Mooney [facility] Professio nal Building 1.2.840.114 350.1.13.10 4.2.7.2.686 [id number] 134 [id number] [facility] 2020-11-23 14:01:45 2020-11-23 14:34:40 Routine Visit Laron Mooney [facility] Building 1.2.840.114 350.1.13.10 4.2.7.2.686 [id number] 134 [id number] 2020-11-23 14:15:00 2020-11-23 14:15:00 Outpatient R LARON MOONEY [facility] [id number] [facility] 2020-11-11 14:00:00 2020-11-11 14:00:00 Outpatient R [facility] [id number] [facility] 2020-11-11 11:15:00 2020-11-11 11:15:00 Outpatient R LARON MOONEY [facility] [id number] [facility] 2020-11-11 10:47:22 2020-11-11 11:08:04 Nurse Visit Nurse, [facility] Laron Mooney [facility] Building 1.2.840.114 350.1.13.10 4.2.7.2.686 [id number] 134 [id number] [facility] 2020-11-11 10:47:22 2020-11-11 11:08:04 [facility] 1.2.840.114 350.1.13.10 4.2.7.2.686 [id number] 134 [id number] 2020-10-28 05:30:00 2020-10-29 22:30:00 Hospital Encounter Laron Mooney [facility] 1.2.840.114 350.1.13.10 4.2.7.2.686 [id number] 083 [id number] 2020-10-28 05:30:00 2020-10-29 22:30:00 Hospital Encounter Laron Mooney [facility] 1.2.840.114 350.1.13.10 4.2.7.2.686 [id number] 083 [id number] [facility] 2020-10-27 10:13:02 2020-10-27 10:28:02 Laboratory Only Only, Adc Test [facility] 1.2.840.114 350.1.13.10 4.2.7.2.686 [id number] 353 [id number] 2020-10-27 10:13:02 2020-10-27 10:28:02 Laboratory Only Only, Adc Test Donell Saavedra [facility] 1.2.840.114 350.1.13.10 4.2.7.2.686 [id number] 353 [id number] [facility] 2020-10-27 10:00:00 2020-10-27 10:00:00 Outpatient R [facility] [id number] [facility] 2020-10-21 14:52:05 2020-10-21 16:19:18 Routine Visit Laron Mooney [facility] Building 1.2.840.114 350.1.13.10 4.2.7.2.686 [id number] 134 [id number] 2020-10-21 14:52:05 2020-10-21 16:19:18 Routine Visit Laron Mooney [facility] Professio nal Building 1.2.840.114 350.1.13.10 4.2.7.2.686 [id number] 134 [id number] [facility] 2020-10-21 14:45:00 2020-10-21 14:45:00 Outpatient R LARON MOONEY [facility] [id number] [facility] 2020-10-21 00:00:00 2020-10-21 00:00:00 Orders Only Doctor Unassigned, [place] [facility] 1.2.840.114 350.1.13.10 4.2.7.2.686 [id number] [id number] 2020-10-21 00:00:00 2020-10-21 00:00:00 Orders Only Doctor Unassigned, [place] [facility] 1.2.840.114 350.1.13.10 4.2.7.2.686 [id number] [id number] [facility] 2020-10-16 00:00:00 2020-10-16 00:00:00 Patient Secure Msg Laron Mooney [facility] BUILDING 1.2.840.114 350.1.13.10 4.2.7.2.686 [id number] 134 [id number] [facility] 2020-10-15 00:00:00 2020-10-15 00:00:00 Patient Secure Msg Laron Mooney [facility] BUILDING 1.2.840.114 350.1.13.10 4.2.7.2.686 [id number] 134 [id number] [facility] 2020-10-14 15:47:58 2020-10-14 16:38:20 Routine Visit Laron Mooney [facility] Building 1.2.840.114 350.1.13.10 4.2.7.2.686 [id number] 134 [id number] 2020-10-14 15:47:58 2020-10-14 16:38:20 Routine Visit Laron Mooney [facility] Building 1.2.840.114 350.1.13.10 4.2.7.2.686 [id number] 134 [id number] [facility] 2020-10-14 15:31:53 2020-10-14 15:46:53 Email Operations Manager Visit 2, Adc Lab [facility] nal Building 1.2.840.114 350.1.13.10 4.2.7.2.686 [id number] 353 [id number] 2020-10-14 15:31:53 2020-10-14 15:46:53 Email Operations Manager Visit 2, Adc Lab Laorn Mooney [facility] Building 1.2.840.114 350.1.13.10 4.2.7.2.686 [id number] 353 [id number] [facility] 2020-10-14 15:45:00 2020-10-14 15:45:00 Outpatient R LARON MOONEY [facility] [id number] [facility] 2020-10-14 00:00:00 2020-10-14 00:00:00 Case Management Laron Mooney [facility] Building 1.2.840.114 350.1.13.10 4.2.7.2.686 [id number] 134 [id number] 2020-10-14 00:00:00 2020-10-14 00:00:[address] Case Management Laron Mooney [facility] Building 1.2.840.114 350.1.13.10 4.2.7.2.686 [id number] 134 [id number] [facility] 2020-10-12 00:00:00 2020-10-12 00:00:00 Patient Secure Msg Laron Mooney [facility] BUILDING 1.2.840.114 350.1.13.10 4.2.7.2.686 [id number] 134 [id number] [facility] 2020-10-11 00:00:00 2020-10-11 00:00:[address] [facility] Building 1.2.840.114 350.1.13.10 4.2.7.2.686 [id number] 134 [id number] 2020-10-11 00:00:00 2020-10-11 00:00:00 Telephone Laron Mooney [facility] [place] [facility] 1.2.840.114 350.1.13.10 4.2.7.2.686 [id number] 134 [id number] [facility] 2020-10-11 00:00:00 2020-10-11 00:00:00 Patient Secure Msg Laron Mooney [facility] BUILDING 1.2.840.114 350.1.13.10 4.2.7.2.686 [id number] 134 [id number] [facility] 2020-10-07 08:18:49 2020-10-07 09:18:03 Routine Visit Laron Mooney [facility] [place] [facility] 1.2.840.114 350.1.13.10 4.2.7.2.686 [id number] 134 [id number] 2020-10-07 08:18:49 2020-10-07 09:18:03 Routine Visit Laron Mooney [facility] [place] [facility] 1.2.840.114 350.1.13.10 4.2.7.2.686 [id number] 134 [id number] [facility] 2020-10-07 08:15:00 2020-10-07 08:15:00 Outpatient R LARON MOONEY [facility] [id number] [facility] 2020-10-06 09:45:00 2020-10-06 09:45:00 Outpatient R ANNY YBARRA [facility] [id number] [facility] 2020-10-06 00:00:00 2020-10-06 00:00:00 Telephone Laron Mooney [facility] 1.2.840.114 350.1.13.10 4.2.7.2.686 [id number] 134 [id number] 2020-10-06 00:00:00 2020-10-06 00:00:00 Telephone [facility] 1.2.840.114 350.1.13.10 4.2.7.2.686 [id number] 134 [id number] [facility] 2020-10-04 00:00:00 2020-10-04 00:00:00 Patient Secure Msg Laron Mooney [facility] BUILDING 1.2.840.114 350.1.13.10 4.2.7.2.686 [id number] 134 [id number] [facility] 2020-10-02 14:07:00 2020-10-02 19:02:00 Emergency Edgardo Recinos [facility] 1.2.840.114 350.1.13.10 4.2.7.2.686 [id number] 083 [id number] 2020-10-02 14:07:00 2020-10-02 19:02:00 Emergency Edgardo Recinos [facility] 1.2.840.114 350.1.13.10 4.2.7.2.686 [id number] 083 [id number] [facility] 2020-09-22 15:22:19 2020-09-22 15:43:16 Routine Visit Laron Mooney [facility] Building 1.2.840.114 350.1.13.10 4.2.7.2.686 [id number] 134 [id number] 2020-09-22 15:22:19 2020-09-22 15:43:16 [facility]ine [facility] 1.2.840.114 350.1.13.10 4.2.7.2.686 [id number] 134 [id number] [facility] 2020-09-22 15:30:00 2020-09-22 15:30:00 Outpatient R LARON MOONEY [facility] [id number] [facility] 2020-09-13 00:00:00 2020-09-13 00:00:00 Orders Only Doctor Unassigned, [place] [facility] 1.2.840.114 350.1.13.10 4.2.7.2.686 [id number] 009 [id number] 2020-09-13 00:00:00 2020-09-13 00:00:00 Orders Only Doctor Unassigned, [place] [facility] 1.2.840.114 350.1.13.10 4.2.7.2.686 [id number] [id number] [facility] 2020-09-08 16:30:00 2020-09-08 16:30:00 Outpatient R AMADA [facility] [id number] [facility] 2020-09-08 10:04:39 2020-09-08 10:19:39 Routine Visit Amada [facility] 1.2.840.114 350.1.13.10 4.2.7.2.686 [id number] 134 [id number] 2020-09-08 10:04:39 2020-09-08 10:19:39 Routine Visit Amada [facility] 1.2.840.114 350.1.13.10 4.2.7.2.686 [id number] 134 [id number] [facility] 2020-09-04 20:56:00 2020-09-04 20:56:00 Outpatient Mart Steele [facility] [id number] [address] [place] [address] 2020-09-03 00:00:00 2020-09-03 00:00:00 Orders Only Doctor Unassigned, [place] [facility] 1.2.840.114 350.1.13.10 4.2.7.2.686 [id number] [id number] [facility] 2020-09-01 00:00:00 2020-09-01 00:00:00 Case Management Laron Mooney [facility] Building 1.2.840.114 350.1.13.10 4.2.7.2.686 [id number] 134 [id number] 2020-09-01 00:00:00 2020-09-01 00:00:00 Case Management Laron Mooney [facility] Building 1.284.114 350.1.13.10 4.2.7.2.686 [id number] 134 [id number] [facility] 2020-08-25 09:47:40 2020-08-25 10:28:07 Routine Visit Laron Mooney [facility] 1.2.840.114 350.1.13.10 4.2.7.2.686 [id number] 134 [id number] [facility] 2020-08-25 09:45:00 2020-08-25 09:45:00 Outpatient R LARON MOONEY [facility] [id number] [facility] 2020-08-11 10:15:00 2020-08-11 10:15:00 Outpatient R [facility] [id number] [facility] 2020-08-11 09:10:01 2020-08-11 09:25:01 Email Operations Manager Visit 2, Adc Lab Laron Mooney [facility] 1..840.114 350.1.13.10 4.2.7.2.686 [id number] [facility] 2020-07-30 14:09:41 2020-07-30 15:09:41 Email Operations Manager Visit Ultrasound, Adc Harry Cardenas [facility] Building 1.2.840.114 350.1.13.10 4.2.7.2.686 [id number] 134 [id number] [facility] 2020-07-30 14:00:00 2020-07-30 14:00:00 Outpatient P [facility] [id number] [facility] 2020-07-28 13:02:23 2020-07-28 13:51:17 Routine Visit Laron Mooney [facility] Building 1.2840.114 350.1.13.10 4.2.7.2.686 [id number] 134 [id number] [facility] 2020-07-28 13:00:00 2020-07-28 13:00:00 Outpatient R LARON MOONEY [facility] [id number] [facility] 2020-07-28 00:00:00 2020-07-28 00:00:00 Letter (Out) Doctor Unassigned, [place] [facility] 1.2840.114 350.1.13.10 4.2.7.2.686 [id number] [id number] [facility] 2020-07-13 00:00:00 2020-07-13 00:00:00 Letter (Out) Laron Mooney [facility] 1.2840.114 350.1.13.10 4.2.7.2.686 [id number] 134 [id number] [facility] 2020-07-10 06:03:00 2020-07-10 06:42:00 Emergency Stephanie Ro S [facility] 1.2.840.114 350.1.13.10 4.2.7.2.686 [id number] 084 [id number] [facility] 2020-07-08 00:00:00 2020-07-08 00:00:00 Orders Only Doctor Unassigned, [place] [facility] 1.20.114 350.1.13.10 4.2.7.2.686 [id number] [id number] [facility] 2020-07-01 00:00:00 2020-07-01 00:00:00 Telephone Laron Mooney [facility] Building 1.2.840.114 350.1.13.10 4.2.7.2.686 [id number] 134 [id number] [facility] 2020-06-30 14:52:17 2020-06-30 16:18:50 Initial Visit Laron Mooney [facility] Building 1.2.840.114 350.1.13.10 4.2.7.2.686 [id number] 134 [id number] [facility] 2020-06-30 14:30:00 2020-06-30 14:30:00 Outpatient R LARON MOONEY [facility] [id number] [facility] 2020-06-30 00:00:00 2020-06-30 00:00:00 Orders Only Doctor Unassigned, [place] [facility] 1.2.840.114 350.1.13.10 4.2.7.2.686 [id number] [id number] [facility] 2020-06-21 02:25:00 2020-06-21 03:35:00 Hospital Encounter Jennifer Weldon [facility] 1.2840.114 350.1.13.10 4.2.7.2.686 [id number] 083 [id number] [facility] 2020-06-21 02:25:00 2020-06-21 02:25:00 Outpatient P JENNIFER WELDON [facility] DAGO [id number] [facility] 2019-10-11 23:44:50 2019-10-12 04:24:00 Emergency X PAMELA RORODRIGO [facility] ERT [id number] [facility] Results Test Description Test Time Test Comments Results Result Co mments Source [facility] w/o Specific [id number] 19:59:00* Test Item Value Reference Range Interpretation Comme nts POCT PH U (test code = 3254) 7 mg/dl 5-8 POCT U LEUK EST (test code = 3263) negative Negative - Negative POCT U NIT (test code = 3262) negative Negative - Negati ve POCT U PROT (test code = 3259) TRACE Negative - Negat taisha POCT U GLU (test code = 3256) negative Negative - Negati ve POCT U KETONE (test code = 3258) negative Negative - Neg ative POCT U BLD (test code = 3257) negative Negative - Negati ve [facility] [id number] 21:23:00* Test Item Value Reference Range Interpretation Comme nts POCT PREG (test code = 1605) Negative On board controls acceptable with C Line (test code = 3574) Yes POCT PREG LOT # (test code = 3575) POCT PREG TEST DATE ( test code = 3576) [facility] [id number] 21:23:00* Test Item Value Reference Range Interpretation Comme nts POCT PREG (test code = 1605) Negative On board controls acceptable with C Line (test code = 3574) Yes POCT PREG LOT # (test code = 3575) POCT PREG TEST DATE ( test code = 3576) [facility] with [id number] 10:06:01* Test Item Value Reference Range Interpretation Comme nts WBC (test code = 6690-2) 8.58 4.30-11.10 RBC (test code = 789-8) 4.15 3.93-5.25 HGB (test code = 718-7) 12.1 g/dL 11.6-15.0 HCT (test code = 4544-3) 36.7 % 35.7-45.2 MCV (test code = 787-2) 88.4 fL 80.6-95.5 MCH (test code = 785-6) 29.2 pg 25.9-32.8 MCHC (test code = 786-4) 33.0 g/dL 31.6-35.1 RDW-SD (test code = 04280-1) 51.1 fL 39.0-49.9 H RDW-CV (test code = 788-0) 15.9 % 12.0-15.5 H PLT (test code = 777-3) 178 166-358 MPV (test code = 62611-0) 13.9 fL 9.5-12.9 H IPF % (test code = 8435546287) 12.9 % 1.3-7.7 H Platelet count measured by fluorescence method. NRBC/100 WBC (test code = 7773147199) 0.0 0.0-10.0 NRBC x10^3 (test code = 9841226520) See_Comment [Automated messa ge] The system which generated this result transmitted reference range: 10*3/?L. The reference range was not used to interpret this result as normal/abnormal. GRAN MAT (NEUT) % (test code = 770-8) 71.5 % IMM GRAN % (test code = 5477618209) 0.50 % LYMPH % (test code = 736-9) 19.8 % MONO % (test code = 5905-5) 6.6 % EOS % (test code = 713-8) 1.4 % BASO % (test code = 706-2) 0.2 % GRAN MAT x10^3(ANC) (test code = 0589376819) 6.13 10*3/uL 1.88-7.09 IMM GRAN x10^3 (test code = 3903670333) 0.04 10*3/uL 0.00-0.06 LYMPH x10^3 (test code = 731-0) 1.70 10*3/uL 1.32-3.29 MONO x10^3 (test code = 742-7) 0.57 10*3/uL 0.33-0.92 EOS x10^3 (test code = 711-2) 0.12 10*3/uL 0.03-0.39 BASO x10^3 (test code = 704-7) 0.01-0.07 Lab Interpretation (test code = 13391-8) Abnormal [facility] with [id number] 10:06:01* Test Item Value Reference Range Interpretation Comme nts WBC (test code = 6690-2) 8.58 4.30-11.10 RBC (test code = 789-8) 4.15 3.93-5.25 HGB (test code = 718-7) 12.1 g/dL 11.6-15.0 HCT (test code = 4544-3) 36.7 % 35.7-45.2 MCV (test code = 787-2) 88.4 fL 80.6-95.5 MCH (test code = 785-6) 29.2 pg 25.9-32.8 MCHC (test code = 786-4) 33.0 g/dL 31.6-35.1 RDW-SD (test code = 01309-4) 51.1 fL 39.0-49.9 H RDW-CV (test code = 788-0) 15.9 % 12.0-15.5 H PLT (test code = 777-3) 178 166-358 MPV (test code = 16039-9) 13.9 fL 9.5-12.9 H IPF % (test code = 3844653676) 12.9 % 1.3-7.7 H Platelet count measured by fluorescence method. NRBC/100 WBC (test code = 3272172263) 0.0 0.0-10.0 NRBC x10^3 (test code = 9058706100) See_Comment [Automated [employer] ge] The system which generated this result transmitted reference range: 10*3/?L. The reference range was not used to interpret this result as normal/abnormal. GRAN MAT (NEUT) % (test code = 770-8) 71.5 % IMM GRAN % (test code = 1730388462) 0.50 % LYMPH % (test code = 736-9) 19.8 % MONO % (test code = 5905-5) 6.6 % EOS % (test code = 713-8) 1.4 % BASO % (test code = 706-2) 0.2 % GRAN MAT x10^3(ANC) (test code = 6025852016) 6.13 10*3/uL 1.88-7.09 IMM GRAN x10^3 (test code = 6892966702) 0.04 10*3/uL 0.00-0.06 LYMPH x10^3 (test code = 731-0) 1.70 10*3/uL 1.32-3.29 MONO x10^3 (test code = 742-7) 0.57 10*3/uL 0.33-0.92 EOS x10^3 (test code = 711-2) 0.12 10*3/uL 0.03-0.39 BASO x10^3 (test code = 704-7) 0.01-0.07 Lab Interpretation (test code = 50444-3) Abnormal [facility] [place] ONLY - [id number] 05:31:01* Test Item Value Reference Range Interpretation Comme nts RPR (Qualitative) (test code = 00538-2) Nonreactive Nonreactive Lab Interpretation (test cod e = 06001-2) Normal [facility] [place] ONLY - [id number] 05:31:01* Test Item Value Reference Range Interpretation Comme nts RPR (Qualitative) (test code = 62594-7) Nonreactive Nonreactive Lab Interpretation (test cod e = 52421-2) Normal [facility] B Surface [id number] 16:00:24 * Test Item Value Reference Range Interpretation Comme nts HBsAg Semi-Quantitative (eriberto t code = 5195-3) 0.06 Negative [facility] B Surface [id number] 16:00:24 * Test Item Value Reference Range Interpretation Comme nts HBsAg Semi-Quantitative (eriberto t code = 5195-3) 0.[address] [facility] [id number] 14:49:10* Test Item Value Reference Range Interpretation Comme nts RHIG CANDIDATE? (test code = 5188) No- see comment Patient is not a candidate for RhIg- Patient is Rh Positive.Performed at [facility] Blood [address] [place] [address] Free: [phone] No. [id number] [facility] (D) IMMUNE [id number] 14:49:10* Test Item Value Reference Range Interpretation Comme nts RHIG CANDIDATE? (test code = 5188) No- see comment Patient is not a candidate for RhIg- Patient is Rh Positive.Performed at [facility] Blood [address] [place], [place] [address]Toll Free: [phone] No. [id number] [facility]-Ab with [id number] 13:25:47* Test Item Value Reference Range Interpretation Comme nts HIV Semi-quantitative (test code = 08874-5) 0.09 Negative SUSANNAH (test code = SUSANNAH) Non-reactive for HIV-1 antigen and HIV-1/HIV-2 antibodies. ?No laboratory evidence of HIV infection. ?Repeat in 2-4 weeks if acute HIV infection is suspected. [facility] Ag-Ab with [id number] 13:25:47* Test Item Value Reference Range Interpretation Comme nts HIV Semi-quantitative (test code = 87186-3) 0.09 Negative SUSANNAH (test code = SUSANNAH) Non-reactive for HIV-1 antigen and HIV-1/HIV-2 antibodies. ?No laboratory evidence of HIV infection. ?Repeat in 2-4 weeks if acute HIV infection is suspected. [facility] with [id number] 12:35:40* Test Item Value Reference Range Interpretation Comme nts WBC (test code = 6690-2) 9.87 4.30-11.10 RBC (test code = 789-8) 4.47 3.93-5.25 HGB (test code = 718-7) 12.9 g/dL 11.6-15.0 HCT (test code = 4544-3) 39.0 % 35.7-45.2 MCV (test code = 787-2) 87.2 fL 80.6-95.5 MCH (test code = 785-6) 28.9 pg 25.9-32.8 MCHC (test code = 786-4) 33.1 g/dL 31.6-35.1 RDW-SD (test code = 46189-7) 49.5 fL 39.0-49.9 RDW-CV (test code = 788-0) 15.9 % 12.0-15.5 H PLT (test code = 777-3) 193 166-358 MPV (test code = 35606-3) 14.4 fL 9.5-12.9 H IPF % (test code = 1956421598) 15.8 % 1.3-7.7 H Platelet count measured by fluorescence method. NRBC/100 WBC (test code = 6163781671) 0.0 0.0-10.0 NRBC x10^3 (test code = 0879730424) See_Comment [Automated messa ge] The system which generated this result transmitted reference range: 10*3/?L. The reference range was not used to interpret this result as normal/abnormal. GRAN MAT (NEUT) % (test code = 770-8) 69.7 % IMM GRAN % (test code = 9487437860) 0.40 % LYMPH % (test code = 736-9) 22.7 % MONO % (test code = 5905-5) 5.7 % EOS % (test code = 713-8) 1.2 % BASO % (test code = 706-2) 0.3 % GRAN MAT x10^3(ANC) (test code = 0315284901) 6.88 10*3/uL 1.88-7.09 IMM GRAN x10^3 (test code = 8143558328) 0.04 10*3/uL 0.00-0.06 LYMPH x10^3 (test code = 731-0) 2.24 10*3/uL 1.32-3.29 MONO x10^3 (test code = 742-7) 0.56 10*3/uL 0.33-0.92 EOS x10^3 (test code = 711-2) 0.12 10*3/uL 0.03-0.39 BASO x10^3 (test code = 704-7) 0.03 10*3/uL 0.01-0.07 Lab Interpretation (test code = 25154-1) Abnormal [facility] with Yvezhwywkcwp2713-16-50 12:35:40* Test Item Value Reference Range Interpretation Comme nts WBC (test code = 6690-2) 9.87 4.30-11.10 RBC (test code = 789-8) 4.47 3.93-5.25 HGB (test code = 718-7) 12.9 g/dL 11.6-15.0 HCT (test code = 4544-3) 39.0 % 35.7-45.2 MCV (test code = 787-2) 87.2 fL 80.6-95.5 MCH (test code = 785-6) 28.9 pg 25.9-32.8 MCHC (test code = 786-4) 33.1 g/dL 31.6-35.1 RDW-SD (test code = 97889-8) 49.5 fL 39.0-49.9 RDW-CV (test code = 788-0) 15.9 % 12.0-15.5 H PLT (test code = 777-3) 193 166-358 MPV (test code = 71790-3) 14.4 fL 9.5-12.9 H IPF % (test code = 6376434639) 15.8 % 1.3-7.7 H Platelet count measured by fluorescence method. NRBC/100 WBC (test code = 3667503445) 0.0 0.0-10.0 NRBC x10^3 (test code = 9691275472) See_Comment [Automated messa ge] The system which generated this result transmitted reference range: 10*3/?L. The reference range was not used to interpret this result as normal/abnormal. GRAN MAT (NEUT) % (test code = 770-8) 69.7 % IMM GRAN % (test code = 9160832965) 0.40 % LYMPH % (test code = 736-9) 22.7 % MONO % (test code = 5905-5) 5.7 % EOS % (test code = 713-8) 1.2 % BASO % (test code = 706-2) 0.3 % GRAN MAT x10^3(ANC) (test code = 7242772442) 6.88 10*3/uL 1.88-7.09 IMM GRAN x10^3 (test code = 3856482112) 0.04 10*3/uL 0.00-0.06 LYMPH x10^3 (test code = 731-0) 2.24 10*3/uL 1.32-3.29 MONO x10^3 (test code = 742-7) 0.56 10*3/uL 0.33-0.92 EOS x10^3 (test code = 711-2) 0.12 10*3/uL 0.03-0.39 BASO x10^3 (test code = 704-7) 0.03 10*3/uL 0.01-0.07 Lab Interpretation (test code = 31366-2) [facility] [id number] 12:10:00 * Test Item Value Reference Range Interpretation Comme nts ABO & RH (test code = 20) O POSITIVE IAT (test code = 1185) Negative [facility] and Screen - ONCE [id number] 12:10:00 * Test Item Value Reference Range Interpretation Comme nts ABO & RH (test code = 20) O POSITIVE IAT (test code = 1185) Negative [facility] Ur[facility] w/o Specific Rgkhtsb2459-45-76 13:30:00* Test Item Value Reference Range Interpretation Comme nts POCT PH U (test code = 3254) n/a 5-8 POCT U LEUK EST (test code = 3263) n/a Negative - Negative POCT U NIT (test code = 3262) n/a Negative - Negati ve POCT U PROT (test code = 3259) negative Negative - Negat taisha POCT U GLU (test code = 3256) normal Negative - Negati ve POCT U KETONE (test code = 3258) n/a Negative - Neg ative POCT U BLD (test code = 3257) n/a Negative - Negati ve [facility] w/o Specific Nsziuse7391-95-06 13:29:00* Test Item Value Reference Range Interpretation Comme nts POCT PH U (test code = 3254) n/a 5-8 POCT U LEUK EST (test code = 3263) n/a Negative - Negative POCT U NIT (test code = 3262) n/a Negative - Negati ve POCT U PROT (test code = 3259) Negative Negative - Negat taisha POCT U GLU (test code = 3256) Normal Negative - Negati ve POCT U KETONE (test code = 3258) n/a Negative - Neg ative POCT U BLD (test code = 3257) n/a Negative - Negati ve [facility] w/o Specific Ggwbqgd6790-87-65 19:44:00* Test Item Value Reference Range Interpretation Comme nts POCT PH U (test code = 3254) n/a 5-8 POCT U LEUK EST (test code = 3263) n/a Negative - Negative POCT U NIT (test code = 3262) n/a Negative - Negati ve POCT U PROT (test code = 3259) TRACE Negative - Negat taisha POCT U GLU (test code = 3256) negative Negative - Negati ve POCT U KETONE (test code = 3258) n/a Negative - Neg ative POCT U BLD (test code = 3257) n/a Negative - Negati ve [facility] Urinalysis w/o Specific Dkvzkkj0660-47-18 15:28:00* Test Item Value Reference Range Interpretation Comme nts POCT PH U (test code = 3254) na 5-8 POCT U LEUK EST (test code = 3263) na Negative - Negative POCT U NIT (test code = 3262) na Negative - Negative POCT U PROT (test code = 3259) negative Negative - Negative POCT U GLU (test code = 3256) negative Negative - Negative POCT U KETONE (test code = 3258) na Negative - Negative POCT U BLD (test code = 3257) na Negative - Negative SUSANNAH (test code = SUSANNAH) accurate developme nt and interpretation of all internal controls Lab Interpretation (test code = 94853-6) Normal [facility] Urinalysis w/o Specific Yttvpws8105-42-17 16:15:00* Test Item Value Reference Range Interpretation Comme nts POCT PH U (test code = 3254) n/a 5-8 POCT U LEUK EST (test code = 3263) n/a Negative - Negative POCT U NIT (test code = 3262) n/a Negative - Negati ve POCT U PROT (test code = 3259) Negative Negative - Negat taisha POCT U GLU (test code = 3256) Normal Negative - Negati ve POCT U KETONE (test code = 3258) n/a Negative - Neg ative POCT U BLD (test code = 3257) n/a Negative - Negati ve [facility]. Metabolic Panel (92264)2023-11-24 03:15:53* Test Item Value Reference Range Interpretation Comme nts NA (test code = 0941838992) 134 mmol/L 135-145 L K (test code = 8634769224) 3.4 mmol/L 3.5-5.0 L CL (test code = 0346311915) 109 mmol/L 98-108 H CO2 TOTAL (test code = 5243574462) 20 mmol/L 23-31 L AGAP (test code = 4058884376) 5 2-16 BUN (test code = 6817753928) 5 mg/dL 7-23 L GLUCOSE (test code = 7790765980) 115 mg/dL 70-110 H CREATININE (test code = 2160-0) 0.39 mg/dL 0.50-1.04 L TOTAL BILI (test code = 7375798289) 0.4 mg/dL 0.1-1.1 CALCIUM (test code = 0962129407) 9.4 mg/dL 8.6-10.6 T PROTEIN (test code = 3031043751) 7.7 g/dL 6.3-8.2 ALBUMIN (test code = 9180466293) 3.8 g/dL 3.5-5.0 ALK PHOS (test code = 2151103131) 109 U/L 34-122 ALTv (test code = 1742-6) 8 U/L 5-35 AST(SGOT) (test code = 5655802022) 19 U/L 13-40 eGFR (test code = 77037-8) 141.0 mL/min/1.73m2 CKD-EPI eGFR (2020). Assuming creatinine has been stable day-to-day for at least three months, the eGFR indicates Category G1 (>= 90 mL/min/1.73 m2) Lab Interpretation (test code = 83706-0) Abnormal [facility] with [id number] 03:03:15* Test Item Value Reference Range Interpretation Comme nts WBC (test code = 6690-2) 9.84 4.30-11.10 RBC (test code = 789-8) 4.01 3.93-5.25 HGB (test code = 718-7) 11.5 g/dL 11.6-15.0 L HCT (test code = 4544-3) 34.2 % 35.7-45.2 L MCV (test code = 787-2) 85.3 fL 80.6-95.5 MCH (test code = 785-6) 28.7 pg 25.9-32.8 MCHC (test code = 786-4) 33.6 g/dL 31.6-35.1 RDW-SD (test code = 91121-0) 43.9 fL 39.0-49.9 RDW-CV (test code = 788-0) 14.2 % 12.0-15.5 PLT (test code = 777-3) 267 166-358 MPV (test code = 98337-9) 12.5 fL 9.5-12.9 NRBC/100 WBC (test code = 2593144315) 0.0 0.0-10.0 NRBC x10^3 (test code = 1289170686) See_Comment [Automated messa ge] The system which generated this result transmitted reference range: 10*3/?L. The reference range was not used to interpret this result as normal/abnormal. GRAN MAT (NEUT) % (test code = 770-8) 71.7 % IMM GRAN % (test code = 9769523071) 0.60 % LYMPH % (test code = 736-9) 19.4 % MONO % (test code = 5905-5) 7.4 % EOS % (test code = 713-8) 0.7 % BASO % (test code = 706-2) 0.2 % GRAN MAT x10^3(ANC) (test code = 0516958271) 7.05 10*3/uL 1.88-7.09 IMM GRAN x10^3 (test code = 3162773462) 0.06 10*3/uL 0.00-0.06 LYMPH x10^3 (test code = 731-0) 1.91 10*3/uL 1.32-3.29 MONO x10^3 (test code = 742-7) 0.73 10*3/uL 0.33-0.92 EOS x10^3 (test code = 711-2) 0.07 10*3/uL 0.03-0.39 BASO x10^3 (test code = 704-7) 0.01-0.07 Lab Interpretation (test code = 45621-8) Abnormal [facility] Urinalysis w/o Specific Odiveih0497-20-06 17:08:00* Test Item Value Reference Range Interpretation Comme nts POCT PH U (test code = 3254) n/a 5-8 POCT U LEUK EST (test code = 3263) n/a Negative - Negative POCT U NIT (test code = 3262) n/a Negative - Negati ve POCT U PROT (test code = 3259) negative Negative - Negat taisha POCT U GLU (test code = 3256) negative Negative - Negati ve POCT U KETONE (test code = 3258) n/a Negative - Neg ative POCT U BLD (test code = 3257) n/a Negative - Negati ve [facility] Urinalysis w/o Specific Vhaftfk6624-60-74 17:08:00* Test Item Value Reference Range Interpretation Comme nts POCT PH U (test code = 3254) n/a 5-8 POCT U LEUK EST (test code = 3263) n/a Negative - Negative POCT U NIT (test code = 3262) n/a Negative - Negati ve POCT U PROT (test code = 3259) negative Negative - Negat taisha POCT U GLU (test code = 3256) negative Negative - Negati ve POCT U KETONE (test code = 3258) n/a Negative - Neg ative POCT U BLD (test code = 3257) n/a Negative - Negati ve [facility] Urinalysis w/o Specific Idbymaj5120-79-74 17:08:00* Test Item Value Reference Range Interpretation Comme nts POCT PH U (test code = 3254) n/a 5-8 POCT U LEUK EST (test code = 3263) n/a Negative - Negative POCT U NIT (test code = 3262) n/a Negative - Negati ve POCT U PROT (test code = 3259) negative Negative - Negat taisha POCT U GLU (test code = 3256) negative Negative - Negati ve POCT U KETONE (test code = 3258) n/a Negative - Neg ative POCT U BLD (test code = 3257) n/a Negative - Negati ve [facility] Urinalysis w/o Specific Bkptskn0961-97-13 22:09:00* Test Item Value Reference Range Interpretation Comme nts POCT PH U (test code = 3254) n/a 5-8 POCT U LEUK EST (test code = 3263) n/a Negative - Negative POCT U NIT (test code = 3262) n/a Negative - Negati ve POCT U PROT (test code = 3259) negative Negative - Negat taisha POCT U GLU (test code = 3256) normal Negative - Negati ve POCT U KETONE (test code = 3258) n/a Negative - Neg ative POCT U BLD (test code = 3257) n/a Negative - Negati ve [facility] Metabolic Panel (NA, K, CL, CO2, GLUCOSE, BUN, CREATININE, CA)2023-10-11 11:20:51* Test Item Value Reference Range Interpretation Comme nts NA (test code = 1785640358) 134 mmol/L 135-145 L K (test code = 5756075242) 2.9 mmol/L 3.5-5.0 LL CL (test code = 9761316754) 108 mmol/L 98-108 CO2 TOTAL (test code = 2367326671) 20 mmol/L 23-31 L AGAP (test code = 2987676147) 6 2-16 BUN (test code = 3606273005) 3 mg/dL 7-23 L GLUCOSE (test code = 0199899199) 120 mg/dL 70-110 H CREATININE (test code = 6947129067) 0.45 mg/dL 0.50-1.04 L CALCIUM (test code = 2659372801) 8.3 mg/dL 8.6-10.6 L eGFR (test code = 51417-8) 136.3 mL/min/1.73m2 CKD-EPI eGFR (2020). Assuming creatinine has been stable day-to-day for at least three months, the eGFR indicates Category G1 (>= 90 mL/min/1.73 m2) Lab Interpretation (test code = 51064-9) Abnormal [facility] with Xcic2760-22-79 10:28:30* Test Item Value Reference Range Interpretation Comme nts WBC (test code = 6690-2) 10.60 See_Comment [Automated [employer] ge] The system which generated this result transmitted reference range: 4.30 - 11.10 10*3/?L. The reference range was not used to interpret this result as normal/abnormal. RBC (test code = 789-8) 3.32 See_Comment L [Automated messa ge] The system which generated this result transmitted reference range: 3.93 - 5.25 10*6/?L. The reference range was not used to interpret this result as normal/abnormal. HGB (test code = 718-7) 10.2 g/dL 11.6-15.0 L HCT (test code = 4544-3) 28.9 % 35.7-45.2 L MCV (test code = 787-2) 87.0 fL 80.6-95.5 MCH (test code = 785-6) 30.7 pg 25.9-32.8 MCHC (test code = 786-4) 35.3 g/dL 31.6-35.1 H RDW-SD (test code = 52234-9) 43.4 fL 39.0-49.9 RDW-CV (test code = 788-0) 13.9 % 12.0-15.5 PLT (test code = 777-3) 196 See_Comment [Automated messa ge] The system which generated this result transmitted reference range: 166 - 358 10*3/?L. The reference range was not used to interpret this result as normal/abnormal. MPV (test code = 91318-2) 12.3 fL 9.5-12.9 NRBC/100 WBC (test code = 3097482633) 0.0 See_Comment [Automated me ssage] The system which generated this result transmitted reference range: 0.0 - 10.0 /100 WBCs. The reference range was not used to interpret this result as normal/abnormal. NRBC x10^3 (test code = 9016560638) See_Comment [Automated messa ge] The system which generated this result transmitted reference range: 10*3/?L. The reference range was not used to interpret this result as normal/abnormal. GRAN MAT (NEUT) % (test code = 770-8) 75.0 % IMM GRAN % (test code = 7731813135) 0.40 % LYMPH % (test code = 736-9) 13.7 % MONO % (test code = 5905-5) 10.6 % EOS % (test code = 713-8) 0.1 % BASO % (test code = 706-2) 0.2 % GRAN MAT x10^3(ANC) (test code = 2719723326) 7.96 10*3/uL 1.88-7.09 H IMM GRAN x10^3 (test code = 7001470853) 0.04 10*3/uL 0.00-0.06 LYMPH x10^3 (test code = 731-0) 1.45 10*3/uL 1.32-3.29 MONO x10^3 (test code = 742-7) 1.12 10*3/uL 0.33-0.92 H EOS x10^3 (test code = 711-2) 0.03-0.39 L BASO x10^3 (test code = 704-7) 0.01-0.07 Lab Interpretation (test code = 86251-3) Abnormal [facility] with Hbqn4510-73-44 23:08:02* Test Item Value Reference Range Interpretation Comme nts WBC (test code = 6690-2) 14.45 See_Comment H [Automated messa ge] The system which generated this result transmitted reference range: 4.30 - 11.10 10*3/?L. The reference range was not used to interpret this result as normal/abnormal. RBC (test code = 789-8) 3.88 See_Comment L [Automated messa ge] The system which generated this result transmitted reference range: 3.93 - 5.25 10*6/?L. The reference range was not used to interpret this result as normal/abnormal. HGB (test code = 718-7) 11.8 g/dL 11.6-15.0 HCT (test code = 4544-3) 33.5 % 35.7-45.2 L MCV (test code = 787-2) 86.3 fL 80.6-95.5 MCH (test code = 785-6) 30.4 pg 25.9-32.8 MCHC (test code = 786-4) 35.2 g/dL 31.6-35.1 H RDW-SD (test code = 92360-4) 42.5 fL 39.0-49.9 RDW-CV (test code = 788-0) 13.8 % 12.0-15.5 PLT (test code = 777-3) 214 See_Comment [Automated [employer]] The system which generated this result transmitted reference range: 166 - 358 10*3/?L. The reference range was not used to interpret this result as normal/abnormal. MPV (test code = 35138-4) 13.0 fL 9.5-12.9 H IPF % (test code = 9078906018) 12.3 % 1.3-7.7 H Platelet count measured by fluorescence method. NRBC/100 WBC (test code = 5179173804) 0.0 See_Comment [Automated [employer] ssage] The system which generated this result transmitted reference range: 0.0 - 10.0 /100 WBCs. The reference range was not used to interpret this result as normal/abnormal. NRBC x10^3 (test code = 3637556509) See_Comment [Automated [employer]] The system which generated this result transmitted reference range: 10*3/?L. The reference range was not used to interpret this result as normal/abnormal. GRAN MAT (NEUT) % (test code = 770-8) 84.2 % IMM GRAN % (test code = 0397853633) 0.40 % LYMPH % (test code = 736-9) 7.7 % MONO % (test code = 5905-5) 7.5 % EOS % (test code = 713-8) 0.0 % BASO % (test code = 706-2) 0.2 % GRAN MAT x10^3(ANC) (test code = 6723022109) 12.16 10*3/uL 1.88-7.09 H IMM GRAN x10^3 (test code = 3399192428) 0.06 10*3/uL 0.00-0.06 LYMPH x10^3 (test code = 731-0) 1.11 10*3/uL 1.32-3.29 L MONO x10^3 (test code = 742-7) 1.09 10*3/uL 0.33-0.92 H EOS x10^3 (test code = 711-2) 0.03-0.39 L BASO x10^3 (test code = 704-7) 0.03 10*3/uL 0.01-0.07 Lab Interpretation (test code = 47486-1) [facility]normal [facility] Metabolic Panel (96845)2023-10-10 22:55:38* Test Item Value Reference Range Interpretation Comme nts NA (test code = 1502508658) 131 mmol/L 135-145 L K (test code = 8147120571) 3.5 mmol/L 3.5-5.0 CL (test code = 0749797361) 103 mmol/L 98-108 CO2 TOTAL (test code = 2783236118) 18 mmol/L 23-31 L AGAP (test code = 0422359016) 10 2-16 BUN (test code = 5641329335) 4 mg/dL 7-23 L GLUCOSE (test code = 5149960502) 99 mg/dL 70-110 CREATININE (test code = 6858391818) 0.44 mg/dL 0.50-1.04 L TOTAL BILI (test code = 4305247397) 0.7 mg/dL 0.1-1.1 CALCIUM (test code = 4976438696) 8.9 mg/dL 8.6-10.6 T PROTEIN (test code = 8953807443) 7.8 g/dL 6.3-8.2 ALBUMIN (test code = 9133977889) 3.9 g/dL 3.5-5.0 ALK PHOS (test code = 6135890739) 85 U/L 34-122 ALTv (test code = 1742-6) 7 U/L 5-35 AST(SGOT) (test code = 1196659266) 21 U/L 13-40 eGFR (test code = 24193-0) 137.0 mL/min/1.73m2 CKD-EPI eGFR (2020). Assuming creatinine has been stable day-to-day for at least three months, the eGFR indicates Category G1 (>= 90 mL/min/1.73 m2) Lab Interpretation (test code = 44075-6) [facility]normal [facility]2024-01-10 22:55:38* Test Item Value Reference Range Interpretation Comme nts LIPASE (test code = 1359539646) 31 U/L 0-220 Lab Interpretation (test cod e = 85665-6) Normal [facility]line[facility]ylase2024-01-10 22:54:37* Test Item Value Reference Range Interpretation Comme nts CAIT (test code = 2594775965) 88 U/L 35-110 Lab Interpretation (test cod e = 26111-5) Normal [facility] Urinalysis w/o Specific Sreromi2393-43-60 20:16:00* Test Item Value Reference Range Interpretation Comme nts POCT PH U (test code = 3254) n/a 5-8 POCT U LEUK EST (test code = 3263) n/a Negative - N egative POCT U NIT (test code = 3262) n/a Negative - Negati ve POCT U PROT (test code = 3259) trace Negative - Negat taisha POCT U GLU (test code = 3256) normal Negative - Negati ve POCT U KETONE (test code = 3258) n/a Negative - Neg ative POCT U BLD (test code = 3257) n/a Negative - Negati ve [facility] Urinalysis w/o Specific Utvlsjr9513-86-04 20:16:00* Test Item Value Reference Range Interpretation Comme nts POCT PH U (test code = 3254) n/a 5-8 POCT U LEUK EST (test code = 3263) n/a Negative - N egative POCT U NIT (test code = 3262) n/a Negative - Negati ve POCT U PROT (test code = 3259) trace Negative - Negat taisha POCT U GLU (test code = 3256) normal Negative - Negati ve POCT U KETONE (test code = 3258) n/a Negative - Neg ative POCT U BLD (test code = 3257) n/a Negative - Negati ve [facility] SERUM SCREEN [id number] 19:00:00* Test Item Value Reference Range Interpretation Comments INTERPRETATION:-Q (test code = 84229-9) SEE NOTE Screen negative for open NTD. MSAFP RISK OPEN NTD-Q (test code = 35146-4) 1 IN 2839 $MSAFP-Q (test code = 1834-1) 58.9 ng/mL ADJ MULTIPLE OF MEDIAN-Q (test code = 87246-2) 1.08 -Q (test code = 8251-1) See Below This is a screen ing test, not a diagnostic test. Thisrisk assessment report is based in part on demographicdata provided by the ordering physician. Please notifythe laboratory promptly if any data are incorrect. Forassistance with recalculations, please call your [place] laboratory. For assistance withinterpretation of these results, please contact [facility] genetic counselor or [id number] Interpretive CutoffsScreen Positive for Open NTD: > or = 2.50 adjusted MOM ?> or = 1.90 adjusted MOM for ?insulin-dependent diabetics ?> or = 4.00 adjusted MOM for ?twins ?> or = 3.50 adjusted MOM for ?twins insulin-dependent ?diabetics ?> or = 4.50 adjusted MOM for ?tripletsFor additional information, please refer [email or web address] [email or web address](This link is being provided for informational/education al purposes only.) GESTATIONAL AGE-Q (test code = 56552-5) 20.1 weeks MATERNAL WEIGHT-Q (test code = 3142-7) 164 lbs EST'D DATE OF DELIVERY-Q (test code = 98617-6) 01/29/2024 SIMONA DETERMINED BY-Q (test code = 27426-3) ULTRASOUND MOTHER'S ETHNIC ORIGIN-Q (test code = 54210-3) NUMBER OF FETUSES-Q (test code = 20571-6) 1 INSULIN-DEPEND DIABETIC-Q (test code = 73177-1) NO REPEAT SPECIMEN-Q (test code = 62361-7) NO HX OF NEURAL TUBE DEFECTS-Q (test code = 11200-1) NO PREV DOWN SYND-Q (test code = 44823-7) NO DONOR EGG-Q (test code = 20586-0) NO DONOR AGE: EGG RETRIEVAL-Q (test code = 07275-4) NOT GIVEN SUSANNAH (test code = SUSANNAH) PERFORMED BY [facility]; [address] [place] [address]; ULISSES ROMERO MD [facility] URINALYSIS W/O SPECIFIC [id number] 15:44:00* Test Item Value Reference Range Interpretation Comme nts POCT PH U (test code = 3254) n/a 5-8 POCT U LEUK EST (test code = 3263) n/a Negative - Negative POCT U NIT (test code = 3262) n/a Negative - Negati ve POCT U PROT (test code = 3259) Negative Negative - Negat taisha POCT U GLU (test code = 3256) Negative Negative - Negati ve POCT U KETONE (test code = 3258) n/a Negative - Neg ative POCT U BLD (test code = 3257) n/a Negative - Negati ve [facility] URINALYSIS W/O SPECIFIC [id number] 16:37:00* Test Item Value Reference Range Interpretation Comme nts POCT PH U (test code = 3254) n/a 5-8 POCT U LEUK EST (test code = 3263) n/a Negative - Negative POCT U NIT (test code = 3262) n/a Negative - Negati ve POCT U PROT (test code = 3259) negative Negative - Negat taisha POCT U GLU (test code = 3256) negative Negative - Negati ve POCT U KETONE (test code = 3258) n/a Negative - Neg ative POCT U BLD (test code = 3257) n/a Negative - Negati ve [facility] WITH [id number] 20:39:03* Test Item Value Reference Range Interpretation Comme nts WBC (test code = 6690-2) 4.80 See_Comment [Automated messa ge] The system which generated this result transmitted reference range: 4.30 - 11.10 10*3/?L. The reference range was not used to interpret this result as normal/abnormal. RBC (test code = 789-8) 4.55 See_Comment [Automated [employer]] The system which generated this result transmitted reference range: 3.93 - 5.25 10*6/?L. The reference range was not used to interpret this result as normal/abnormal. HGB (test code = 718-7) 13.5 g/dL 11.6-15.0 HCT (test code = 4544-3) 39.9 % 35.7-45.2 MCV (test code = 787-2) 87.7 fL 80.6-95.5 MCH (test code = 785-6) 29.7 pg 25.9-32.8 MCHC (test code = 786-4) 33.8 g/dL 31.6-35.1 RDW-SD (test code = 21614-7) 41.6 fL 39.0-49.9 RDW-CV (test code = 788-0) 13.2 % 12.0-15.5 PLT (test code = 777-3) 240 See_Comment [Automated [employer]] The system which generated this result transmitted reference range: 166 - 358 10*3/?L. The reference range was not used to interpret this result as normal/abnormal. MPV (test code = 29123-5) 13.5 fL 9.5-12.9 H IPF % (test code = 4449533635) 7.3 % 1.3-7.7 Platelet count measured by fluorescence method. NRBC/100 WBC (test code = 4566156159) 0.0 See_Comment [Automated [employer] ssage] The system which generated this result transmitted reference range: 0.0 - 10.0 /100 WBCs. The reference range was not used to interpret this result as normal/abnormal. NRBC x10^3 (test code = 3416464375) See_Comment [Automated [employer] Transfer To] The system which generated this result transmitted reference range: 10*3/?L. The reference range was not used to interpret this result as normal/abnormal. GRAN MAT (NEUT) % (test code = 770-8) 66.3 % IMM GRAN % (test code = 3940545073) 0.20 % LYMPH % (test code = 736-9) 24.8 % MONO % (test code = 5905-5) 7.7 % EOS % (test code = 713-8) 0.6 % BASO % (test code = 706-2) 0.4 % GRAN MAT x10^3(ANC) (test code = 1642266139) 3.18 10*3/uL 1.88-7.09 IMM GRAN x10^3 (test code = 3188534356) 0.00-0.06 LYMPH x10^3 (test code = 731-0) 1.19 10*3/uL 1.32-3.29 L MONO x10^3 (test code = 742-7) 0.37 10*3/uL 0.33-0.92 EOS x10^3 (test code = 711-2) 0.03 10*3/uL 0.03-0.39 BASO x10^3 (test code = 704-7) 0.01-0.07 Lab Interpretation (test code = 58348-5) Abnormal [facility] [id number] 19:47:18* Test Item Value Reference Range Interpretation Comme nts GLUC 1 HR (test code = 9009319197) 68 mg/dL 120-170 L Lab Interpretation (test cod e = 05901-5) Abnormal [facility] WORKUP, BLOOD [id number] 18:18:00 * Test Item Value Reference Range Interpretation Comme nts ABO & RH (test code = 20) O Positive IAT (test code = 1185) Negative [facility] W/O SPECIFIC [id number] 14:16:00* Test Item Value Reference Range Interpretation Comme nts POCT PH U (test code = 3254) na 5-8 POCT U LEUK EST (test code = 3263) na Negative - N egative POCT U NIT (test code = 3262) na Negative - Negati ve POCT U PROT (test code = 3259) neg Negative - Negat taisha POCT U GLU (test code = 3256) neg Negative - Negati ve POCT U KETONE (test code = 3258) na Negative - Neg ative POCT U BLD (test code = 3257) na Negative - Negati ve [facility] W/O SPECIFIC [id number] 19:54:00* Test Item Value Reference Range Interpretation Comme nts POCT PH U (test code = 3254) N/A 5-8 POCT U LEUK EST (test code = 3263) N/A Negative - Negative POCT U NIT (test code = 3262) N/A Negative - Negati ve POCT U PROT (test code = 3259) Negative Negative - Negat taisha POCT U GLU (test code = 3256) Negative Negative - Negati ve POCT U KETONE (test code = 3258) N/A Negative - Neg ative POCT U BLD (test code = 3257) N/A Negative - Negati ve [facility] [id number] 16:44:00* Test Item Value Reference Range Interpretation Comme nts POCT PREG (test code = 1605) Positive faint On board controls acceptable with C Line (test code = 3574) Yes POCT PREG LOT # (test code = 3575) POCT PREG TEST DATE ( test code = 3576) [facility] [id number] 16:44:00* Test Item Value Reference Range Interpretation Comme nts POCT PREG (test code = 1605) Positive faint On board controls acceptable with C Line (test code = 3574) Yes POCT PREG LOT # (test code = 3575) POCT PREG TEST DATE ( test code = 3576) [facility] History and Physical Notes Date/Time Note Provider Source 2024-01-23 07:41:32 TRIAGE HISTORY & PHYSICAL IDENTIFYING DATA Junior Islas is 28 year old, /White, 39w1d, female with SIMONA 01/29/2024, by Ultrasound. : 1995 Primary Care Physician: PATIENT DOES NOT HAVE A PCP CHIEF COMPLAINT Repeat CD at 39 wks HISTORY OF PRESENT ILLNESS Junior Islas is a 28 year old female @ 39w1d +FM. No VB, LOF, or CTX. No pre-eclampsia sx or other complaints. PAST OBSTETRIC HISTORY OB History Para Term AB Living 5 3 3 1 3 SAB IAB Ectopic Multiple Live Births 0 3 # Outcome Date GA Lbr Sanju/2nd Weight Sex Delivery Anes PTL Lv 5 Current 4 Term 01/30/22 39w2d 3470 g F , L Spinal N CORBIN 3 Term 10/28/20 39w0d 3440 g M , L Spinal N CORBIN 2 AB 08/30/19 7w0d 1 Term 03/06/19 39w0d 3289 g M , L EPI N CORBIN Complications: Intolerance, Other (See Comments), Preeclampsia PAST MEDICAL HISTORY Problem list: Patient Active Problem List Diagnosis Date Noted 39 weeks gestation of 01/23/2024 Excessive growth affecting management of in third trimester 01/23/2024 Abdominal pain affecting 01/10/2024 Excessive weight gain during , antepartum 09/12/2023 High-risk in third trimester 07/06/2023 Previous section 06/30/2020 Operations: Past Surgical History: Procedure Laterality Date SECTION 03/06/2019 SECTION N/A 10/28/2020 Surgeon: Laron Mooney MD; Location: [facility] Labor and Delivery OR Location SECTION N/A 01/30/2022 Surgeon: Laron Mooney MD; Location: [facility] LABOR AND DELIVERY OR LOCATION TOOTH EXTRACTION wisdom teeth Past Medical History: Diagnosis Date Abnormal uterine bleeding Anemia Anxiety Irregular menses Trigeminal neuralgia 10/12/2019 CURRENT HEALTH STATUS Medications: Current Facility-Administered Medications Medication Dose Route Frequency Last Rate Last Admin carboprost (HEMABATE) injection 250 mcg 250 mcg Intramuscular Q2HPRN ceFAZolin (ANCEF) 2,000 mg in NaCl 0.9% (NS) 100 mL MINI-BAG 2,000 mg IV Piggyback O.R. HOLDING ONCE D5W-LR IV infusion 1,000 mL 1,000 mL IV Infusion TITRATE 125 mL/hr at 01/23/24 0557 1,000 mL at 01/23/24 0557 lactated ringers IV infusion 500 mL 500 mL IV Infusion PRN - SEE INSTRUCTIONS lidocaine 1% (PF) (XYLOCAINE) injection 0.3 mL 0.3 mL Infiltration PRN - SEE INSTRUCTIONS methylergonovine (METHERGINE) injection 0.2 mg 0.2 mg Intramuscular Q4HPRN miSOPROStoL (CYTOTEC) tablet 200 mcg 200 mcg Rectal PRN oxytocin (PITOCIN) 30 units in NS 500 mL IV infusion 600 mL/hr IV Infusion PRN terbutaline (BRETHINE) injection 0.25 mg 0.25 mg Subcutaneous PRN tranexamic acid (CYKLOKAPRON) 1,000 mg in NaCl 0.9% (NS) 250 mL piggyback 1,000 mg IV Piggyback PRN Allergies and drug reactions: Patient has no known allergies. HOME MEDICATIONS Medications Prior to Admission Medication Sig Dispense Refill Last Dose ACYCLOVIR ORAL Take by mouth. Taking hydrocortisone 2.5 % ointment Apply to affected area(s) 2 (two) times daily as needed for Itching. 28.35 g 1 Not Taking hydrOXYzine 25 mg tablet Take 1 tablet by mouth every 6 (six) hours as needed for Itching. 30 tablet 1 Not Taking cephALEXin 500 mg capsule Take 1 capsule by mouth in the morning. 30 capsule 2 01/10/2024 PNV 67-iron ps-folate no.1-dha (VITAFOL ULTRA) 29 mg iron- 1 mg-200 mg Cap Take 1 TAB-CAP/M2 by mouth in the morning. 30 capsule 3 Taking SOCIAL HISTORY Tobacco History: Social History Tobacco Use Smoking Status Never Smokeless Tobacco Never Drug History: Social History Substance and Sexual Activity Drug Use Not Currently Types: Marijuana Comment: Denied Opiate pain med use or abuse / has not smokded THC in 2 years Alcohol History: Social History Substance and Sexual Activity Alcohol Use Not Currently FAMILY HISTORY Family History Problem Relation Age of Onset No Significant Medical Problems Mother No Significant Medical Problems Father Arthritis NoFHx defects NoFHx Asthma NoFHx Breast Cancer NoFHx Colon Cancer NoFHx Ovarian Cancer NoFHx Uterine Cancer NoFHx Cancer NoFHx Depression NoFHx Diabetes NoFHx Genetic NoFHx Heart NoFHx High cholesterol NoFHx Hypertension NoFHx Mental retardation NoFHx Neurological NoFHx Osteoporosis NoFHx Psychiatry NoFHx Other - see comments NoFHx REVIEW OF SYSTEMS General: negative Constitutional: negative Eyes: negative ENT/Mouth: negative Cardiovascular: negative Respiratory: negative Gastrointestinal:negative Genitourinary: negative Musculoskeletal: negative Skin/breast: negative Neurological: negative Psychiatric: negative Endocrine: negative Hemat/Lymph: negative Allergic/Immuno:none VITAL SIGNS BP: -- Temp: -- Temp source: -- Pulse: -- Resp: -- SpO2: -- Height: [160 cm (5' 3")] Weight: -- BMI (calculated): [0] PHYSICAL EXAMINATIONS Gen: alert and oriented, well appearing, no distress CV: RRR, normal S1/S2, no m/r/g Resp: normal work of breathing, lungs CTAB Abd: gravid, soft, NTTP Ext: no calf tenderness or edema : Deferred REVIEW OF LABORATORY, PATHOLOGY, 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 DATA Lab results: Type & Screen HIV Hep B Syphilis Chlamydia ABO & RH Date Value Ref Range Status 11/08/2023 O POSITIVE Final No results found for: "HIVMULTIPLEX" No components found for: "HBSHBSAG" No results found for: "SYPIGG" C. trachomatis Nucleic Acid Date Value Ref Range Status 01/03/2024 Negative Negative Final IAT Date Value Ref Range Status 11/08/2023 Negative Final Varicella Rubella Glucose Group B Strep CBC VZV IgG antibody Date Value Ref Range Status 07/20/2021 Positive Negative Final Rubella screen IgG Date Value Ref Range Status 07/06/2023 Negative Negative Final GLUC 1 HR Date Value Ref Range Status 11/08/2023 132 120 - 170 mg/dL Final No results found for: "CGBS" HGB Date Value Ref Range Status 01/23/2024 12.9 11.6 - 15.0 g/dL Final HCT Date Value Ref Range Status 01/23/2024 39.0 35.7 - 45.2 % Final PLT Date Value Ref Range Status 01/23/2024 193 166 - 358 10*3/?L Final Active Hospital Problems Diagnosis Date Noted 39 weeks gestation of 01/23/2024 Excessive growth affecting management of in third trimester 01/23/2024 Excessive weight gain during , antepartum 09/12/2023 High-risk in third trimester 07/06/2023 Previous section 06/30/2020 Resolved Hospital Problems Diagnosis Date Noted Date Resolved Supervision of high risk , antepartum 06/30/2020 02/13/2022 Present on Admission: 39 weeks gestation of Excessive weight gain during , antepartum High-risk in third trimester Previous section (Resolved) Supervision of high risk , antepartum Placenta Accreta Screening Prior ? : Yes Prior Uterine Surgery?: Yes Placenta low lying/previa in current ? : No Screening outcome: A positive screening outcome indicates a history of prior delivery or prior uterine surgery, AND the presence of either a placenta low lying/previa or ultrasound suspicion of PASD in the current . Negative screening. ASSESSMENT AND PLAN Junior Islas is a 28 year old at 39w1d who presents for repeat CD. Previous CD x 3 - admit for repeat CD LGA Body mass index is 33.87 kg/m?. PVT of Dr. Mooney, please see OB Summary for more details Laron Mooney MD [facility] 2024-01-10 20:41:33 ANTEPARTUM HISTORY & PHYSICAL IDENTIFYING DATA Junior Islas is 28 year old, /White, 37w2d, female with SIMONA 01/29/2024, by Ultrasound. : 1995 Primary Care Physician: PATIENT DOES NOT HAVE A PCP Hospital Day: 1 CHIEF COMPLAINT pain HISTORY OF PRESENT ILLNESS 28 year old @37w2d presents with abdominal pain. Pain in upper area and umbilical. Denies vaginal bleeding. + FM Chandrakant lots of water and some tea today. H/o Pyelonephritis in , taking daily abx. PVT pt of Dr Mooney PAST OBSTETRIC HISTORY OB History Para Term AB Living 5 3 3 1 3 SAB IAB Ectopic Multiple Live Births 0 3 # Outcome Date GA Lbr Sanju/2nd Weight Sex Delivery Anes PTL Lv 5 Current 4 Term 01/30/22 39w2d 3470 g F , L Spinal N CORBIN 3 Term 10/28/20 39w0d 3440 g M , L Spinal N CORBIN 2 AB 08/30/19 7w0d 1 Term 03/06/19 39w0d 3289 g M , L EPI N CORBIN Complications: Intolerance, Other (See Comments), Preeclampsia PAST MEDICAL HISTORY Problem list: Patient Active Problem List Diagnosis Date Noted Abdominal pain affecting 01/10/2024 Pyelonephritis complicating in second trimester 10/10/2023 Excessive weight gain during , antepartum 09/12/2023 High-risk in third trimester 07/06/2023 Chlamydia trachomatis infection of lower genitourinary sites 06/12/2023 Previous section 06/30/2020 Operations: Past Surgical History: Procedure Laterality Date SECTION 03/06/2019 SECTION N/A 10/28/2020 Surgeon: Laron Mooney MD; Location: [facility] Labor and Delivery OR Location SECTION N/A 01/30/2022 Surgeon: Laron Mooney MD; Location: [facility] LABOR AND DELIVERY OR LOCATION TOOTH EXTRACTION wisdom teeth Prior surgeries at outside hospitals: none Past Medical History: Diagnosis Date Abnormal uterine bleeding Anemia Anxiety Irregular menses Trigeminal neuralgia 10/12/2019 CURRENT HEALTH STATUS Medications: No current facility-administered medications for this encounter. Allergies and drug reactions: Patient has no known allergies. HOME MEDICATIONS Medications Prior to Admission Medication Sig Dispense Refill Last Dose hydrocortisone 2.5 % ointment Apply to affected area(s) 2 (two) times daily as needed for Itching. 28.35 g 1 Not Taking hydrOXYzine 25 mg tablet Take 1 tablet by mouth every 6 (six) hours as needed for Itching. 30 tablet 1 Not Taking cephALEXin 500 mg capsule Take 1 capsule by mouth in the morning. 30 capsule 2 01/10/2024 PNV 67-iron ps-folate no.1-dha (VITAFOL ULTRA) 29 mg iron- 1 mg-200 mg Cap Take 1 TAB-CAP/M2 by mouth in the morning. 30 capsule 3 01/10/2024 Last taken: today SOCIAL HISTORY Tobacco History: Social History Tobacco Use Smoking Status Never Smokeless Tobacco Never Drug History: Social History Substance and Sexual Activity Drug Use Not Currently Types: Marijuana Comment: Denied Opiate pain med use or abuse / has not smokded THC in 2 years Alcohol History: Social History Substance and Sexual Activity Alcohol Use Not Currently FAMILY HISTORY Family History Problem Relation Age of Onset No Significant Medical Problems Mother No Significant Medical Problems Father Arthritis NoFHx defects NoFHx Asthma NoFHx Breast Cancer NoFHx Colon Cancer NoFHx Ovarian Cancer NoFHx Uterine Cancer NoFHx Cancer NoFHx Depression NoFHx Diabetes NoFHx Genetic NoFHx Heart NoFHx High cholesterol NoFHx Hypertension NoFHx Mental retardation NoFHx Neurological NoFHx Osteoporosis NoFHx Psychiatry NoFHx Other - see comments NoFHx REVIEW OF SYSTEMS General: negative Constitutional: weight gain Eyes: negative ENT/Mouth: negative Cardiovascular: negative Respiratory: negative Gastrointestinal:pain Genitourinary: negative Musculoskeletal: back pain Skin/breast: negative Neurological: negative Psychiatric: negative Endocrine: negative Hemat/Lymph: negative Allergic/Immuno:none VITAL SIGNS BP: (114-121)/(73-77) Temp: [36.7 ?C (98.1 ?F)-36.9 ?C (98.5 ?F)] Temp source: Temporal Artery (01/10 1908) Pulse: [90-106] Resp: [22] SpO2: [98 %-99 %] Height: -- Weight: [86.1 kg (189 lb 12.8 oz)-86.7 kg (191 lb 3.2 oz)] BMI (calculated): [0] PHYSICAL EXAMINATIONS General: well-developed, well-nourished Lungs: non labored breathing Abdomen: tenderness - normal Extremities: no clubbing, cyanosis, or edema Neuro: cranial nerves II through XII grossly intact; sensation grossly intact; muscle strength 5 out of 5 in all four extremities CL/long per P[employer]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, 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, 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 DATA Lab results: CBC BMP PT/INR WBC (10*3/?L) Date Value 01/03/2024 10.27 NA (mmol/L) Date Value 12/20/2023 133 (L) No results found for: "PT" RBC (10*6/?L) Date Value 01/03/2024 4.17 K (mmol/L) Date Value 12/20/2023 4.3 No results found for: "PTINR" PLT (10*3/?L) Date Value 01/03/2024 212 CALCIUM (mg/dL) Date Value 12/20/2023 8.9 HGB (g/dL) Date Value 01/03/2024 12.1 CL (mmol/L) Date Value 12/20/2023 107 aPTT HCT (%) Date Value 01/03/2024 36.6 BUN (mg/dL) Date Value 12/20/2023 8 No results found for: "APTTPAT" CREATININE (mg/dL) Date Value 12/20/2023 0.47 (L) GLUCOSE (mg/dL) Date Value 12/20/2023 102 CO2 TOTAL (mmol/L) Date Value 12/20/2023 18 (L) Type & Screen Rubella Varicella ABO & RH (no units) Date Value 11/08/2023 O POSITIVE Rubella screen IgG (no units) Date Value 07/06/2023 Negative No results found for: "VZVG" No results found for: "TSABINT" Hep B HIV Syphilis No results found for: "HBS" No results found for: "HIV" No results found for: "SYPG" Group B Strep Chlamydia No results found for: "CGBS" C. trachomatis Nucleic Acid (no units) Date Value 01/03/2024 Negative X-ray results: none Placenta Accreta Screening Prior ? : Yes Prior Uterine Surgery?: Yes Placenta low lying/previa in current ? : No Screening outcome: A positive screening outcome indicates a history of prior delivery or prior uterine surgery, AND the presence of either a placenta low lying/previa or ultrasound suspicion of PASD in the current . Negative screening. Right lateral placenta DELIVERY PLAN RCS HEART RATE 120 reactive and reassuring + Irritability and 1 contraction noted ASSESSMENT AND PLAN 28 year old @37w2d --Previous CS x3 with irritability/contractions IV fluids ordered UA ordered --Back pain, h/o pyelo No fever, urine cx ordered --Fetus Reactive and reassuring Update: UA negative Irritability resolved after IV fluids Stable for discharge Magdalene Lozoya MD [facility] 2023-10-10 17:40:05 TRIAGE HISTORY & PHYSICAL IDENTIFYING DATA Junior Islas is 28 year old, /White, 24w1d, female with SIMONA 01/29/2024, by Ultrasound. : 1995 Primary Care Physician: PATIENT DOES NOT HAVE A PCP CHIEF COMPLAINT Sent from clinic for further evaluation HISTORY OF PRESENT ILLNESS Junior Islas is a 28 year old female @ 24w1d sent from clinic for further evaluation. Reports vomiting, fever, chills that started yesterday. Highest temp at home was 100.3. Denies taking any tylenol. States that she was able to drink a little water today but then vomited yellowish fluid. Patient was noted to be tachycardic and had a temperature of 100.5 in clinic today. +FM. No VB, LOF, or CTX. No pre-eclampsia sx or other complaints. PAST OBSTETRIC HISTORY OB History Para Term AB Living 5 3 3 1 3 SAB IAB Ectopic Multiple Live Births 0 3 # Outcome Date GA Lbr Sanju/2nd Weight Sex Delivery Anes PTL Lv 5 Current 4 Term 01/30/22 39w2d 3470 g F , L Spinal N CORBIN 3 Term 10/28/20 39w0d 3440 g M , L Spinal N CORBIN 2 AB 08/30/19 7w0d 1 Term 03/06/19 39w0d 3289 g M , L EPI N CORBIN Complications: Intolerance, Other (See Comments), Preeclampsia PAST MEDICAL HISTORY Problem list: Patient Active Problem List Diagnosis Date Noted Pyelonephritis complicating in second trimester 10/10/2023 24 weeks gestation of 10/10/2023 Excessive weight gain during , antepartum 09/12/2023 High-risk in second trimester 07/06/2023 Chlamydia trachomatis infection of lower genitourinary sites 06/12/2023 Previous section 06/30/2020 Operations: Past Surgical History: Procedure Laterality Date SECTION 03/06/2019 SECTION N/A 10/28/2020 Surgeon: Laron Mooney MD; Location: [facility] Labor and Delivery OR Location SECTION N/A 01/30/2022 Surgeon: Laron Mooney MD; Location: [facility] LABOR AND DELIVERY OR LOCATION TOOTH EXTRACTION wisdom teeth Past Medical History: Diagnosis Date Abnormal uterine bleeding Anemia Anxiety Irregular menses Trigeminal neuralgia 10/12/2019 CURRENT HEALTH STATUS Medications: Current Facility-Administered Medications Medication Dose Route Frequency Last Rate Last Admin cefTRIAXone (ROCEPHIN) 2,000 mg in NaCl 0.9% (NS) 100 mL MINI-BAG 2,000 mg IV Piggyback ONCE 200 mL/hr at 10/10/23 1807 2,000 mg at 10/10/23 1807 D5W 0.9% NaCl (NS) IV infusion 1,000 mL 1,000 mL IV Infusion CONTINUOUS Allergies and drug reactions: Patient has no known allergies. HOME MEDICATIONS Medications Prior to Admission Medication Sig Dispense Refill Last Dose PNV no.95/ferrous fum/folic ac ( ORAL) Take by mouth. Taking SOCIAL HISTORY Tobacco History: Social History Tobacco Use Smoking Status Never Smokeless Tobacco Never Drug History: Social History Substance and Sexual Activity Drug Use Not Currently Types: Marijuana Comment: Denied Opiate pain med use or abuse / has not smokded THC in 2 years Alcohol History: Social History Substance and Sexual Activity Alcohol Use Not Currently FAMILY HISTORY Family History Problem Relation Age of Onset No Significant Medical Problems Mother No Significant Medical Problems Father Arthritis NoFHx defects NoFHx Asthma NoFHx Breast Cancer NoFHx Colon Cancer NoFHx Ovarian Cancer NoFHx Uterine Cancer NoFHx Cancer NoFHx Depression NoFHx Diabetes NoFHx Genetic NoFHx Heart NoFHx High cholesterol NoFHx Hypertension NoFHx Mental retardation NoFHx Neurological NoFHx Osteoporosis NoFHx Psychiatry NoFHx Other - see comments NoFHx REVIEW OF SYSTEMS General: See HPI Constitutional: See HPI Eyes: negative ENT/Mouth: negative Cardiovascular: negative Respiratory: negative Gastrointestinal: See HPI Genitourinary: negative Musculoskeletal: negative Skin/breast: negative Neurological: negative Psychiatric: negative Endocrine: negative Hemat/Lymph: negative Allergic/Immuno:none VITAL SIGNS BP: (123-125)/(76-80) Temp: [36.7 ?C (98 ?F)-38.1 ?C (100.5 ?F)] Temp source: Temporal Artery (10/10 1700) Pulse: [111-131] Resp: [14-17] SpO2: [98 %-100 %] Height: [162.6 cm (5' 4")] Weight: [77.2 kg (170 lb 3.2 oz)] BMI (calculated): [29.21] PHYSICAL EXAMINATIONS Gen: alert and oriented, well appearing, no distress CV: RRR, normal S1/S2, no m/r/g Resp: normal work of breathing, lungs CTAB Abd: gravid, soft, NTTP. Right CVA tenderness noted on exam. Ext: no calf tenderness or edema : Deferred REVIEW OF LABORATORY, PATHOLOGY, 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 DATA Lab results: Type & Screen HIV Hep B Syphilis Chlamydia ABO & RH Date Value Ref Range Status 07/06/2023 O Positive Final No results found for: "HIVMULTIPLEX" No components found for: "HBSHBSAG" No results found for: "SYPIGG" C. trachomatis Nucleic Acid Date Value Ref Range Status 07/06/2023 Negative Negative Final IAT Date Value Ref Range Status 07/06/2023 Negative Final Varicella Rubella Glucose Group B Strep CBC VZV IgG antibody Date Value Ref Range Status 07/20/2021 Positive Negative Final Rubella screen IgG Date Value Ref Range Status 07/06/2023 Negative Negative Final GLUC 1 HR Date Value Ref Range Status 07/06/2023 68 (L) 120 - 170 mg/dL Final No results found for: "CGBS" HGB Date Value Ref Range Status 10/10/2023 11.8 11.6 - 15.0 g/dL Final HCT Date Value Ref Range Status 10/10/2023 33.5 (L) 35.7 - 45.2 % Final PLT Date Value Ref Range Status 10/10/2023 214 166 - 358 10*3/?L Final Active Hospital Problems Diagnosis Date Noted 24 weeks gestation of 10/10/2023 Pyelonephritis complicating in second trimester 10/10/2023 High-risk in second trimester 07/06/2023 Resolved Hospital Problems No resolved problems to display. Present on Admission: Pyelonephritis complicating in second trimester High-risk in second trimester Placenta Accreta Screening Prior ? : Yes (Patient has had three c/sections) Prior Uterine Surgery?: No Placenta low lying/previa in current ? : No Screening outcome: A positive screening outcome indicates a history of prior delivery or prior uterine surgery, AND the presence of either a placenta low lying/previa or ultrasound suspicion of PASD in the current . Negative screening. ASSESSMENT AND PLAN Junior Islas is a 28 year old at 24w1d who presents with vomiting/fever/chills. Fever/chills -COVID and flu tests negative -Likely due to pyelonephritis Pyelonephritis -Will start Rocephin 2 g IV -Will continue observation overnight Hyponatremia -Received normal saline fluid bolus -Will recheck BMP in a.m. CD x 3 Strip appropriate for gestational age. [place] quiescent. Private of Dr. Mooney, please see OB summary for more details Laron Mooney MD [facility]
[2024-09-07 07:15] LABS: Absolute Eosinophils 0.1 K/uL (0-0.5); Absolute Lymphocytes (CBC) 2.6 K/uL (0.7-4.9); Absolute Monocytes 0.5 K/uL (0.1-1.3); Basophils % 0.5 % (0-1.3); Eosinophils % 1.1 % (0-4.4); Hematocrit 43.5 % (36.0-45.0); Hemoglobin 14.9 g/dL (12.0-15.0); Lymphocytes % 25.5 % (15.3-44.8); MCH 28.8 pg (27.0-35.0); MCHC 34.2 g/dL (32.0-36.0); MCV 84.3 fL (80-100); MPV 10.5 fL (7.6-11.3); Monocytes % 4.9 % (3.3-12.3); Nucleated Red Blood Cells % 0.1 % (0-0); Platelets 216 thou/uL (152-406); RBC Red Blood Cell Count 5.16 M/uL (3.86-4.86); Red Cell Distribution Width 13.4 % (12.1-15.2)
[2024-09-07] MEDS ORDERED: NA CHLORIDE 0.9% 1,000 ML ONE (07:30)
[2024-09-07 07:38] LABS: Anion Gap 8.3 mEq/L (5.0-15.0); BUN Blood Urea Nitrogen 15 mg/dL (7-18); Bicarbonate 25 mEq/L (21-32); Glomerular Filtration Rate 99 ml/min (=/>90); Glucose Level 129 mg/dL (74-106); Potassium 3.3 mEq/L (3.5-5.1); Sodium Level 138 mEq/L (136-145)
--- NOTE | 2024-09-07 07:38 | RAD REPORT ---
EXAM: Chest Single View HISTORY: CHEST PAIN COMPARISON: 08/17/2022 FINDINGS: LUNGS/PLEURA: The lungs are clear. No pleural effusions or pneumothorax. No pulmonary edema. MEDIASTINUM: The mediastinal silhouette is within normal limits. CARDIAC: The cardiac silhouette is within normal limits. UPPER ABDOMEN: No significant abnormality. BONES: No acute fracture. LINES/TUBES/OTHER: N/A IMPRESSION: No evidence of acute cardiopulmonary disease.
[2024-09-07 07:49] LABS: Troponin High Sensitivity < 3.0 pg/mL (<58.9)
[2024-09-07 08:05] LABS: Blood Morphology Comment NOT SEEN (NOT SEEN); Platelet Estimate ADEQ; Platelets Clumped FEW; White Blood Cell Scan OK (OK)
[2024-09-07 08:10] LABS: SARS-CoV-2 Antigen CONTROL BLUE LINE VIS/BG OK; SARS-CoV-2 Antigen Rapid Res Negative (Negative)
[2024-09-07 08:44] LABS: Barbiturates NEGATIVE (NEGATIVE); Benzodiazepines NEGATIVE (NEGATIVE); Cocaine NEGATIVE (NEGATIVE); METHAMPHETAM NEGATIVE (NEGATIVE); Methadone NEGATIVE (NEGATIVE); Opiates NEGATIVE (NEGATIVE); Phencyclidine NEGATIVE (NEGATIVE); THC Cannibis NEGATIVE (NEGATIVE)
--- NOTE | 2024-09-07 08:48 | EDPHYS ---
Physician Documentation [facility] Name: Yesica Islas Age: 29 yrs Sex: Female : 1995 Arrival Date: 09/07/2024 Time: 06:38 Bed 5 Private MD: ED Physician Daniel Oviedo HPI: 09/07 07:29 This 29 yrs old Female presents to ER via Ambulatory with complaints of FAST sp3 HEART RATE. 07:29 29-year-old female with history of anxiety presents with chief complaint tachycardia sp3 and anxiety feeling that awoke her from sleep just prior to arrival. Patient also states that she has had decreased p.o. intake over time. No history of recent alcohol use. She denies any chest pain, shortness of breath, drug use, headache, fever, cough, abdominal pain, vomiting, diarrhea, rash, syncope, near syncope, bleeding, or any other signs or symptoms on ROS at this time.. DATA OFFICER: 06:58 LMP N/A - HAS NEXPLANON, Not vc1 Historical: - Allergies: 06:53 No Known Allergies; vc1 - Home Meds: 06:53 None [Active]; vc1 - PMHx: 06:53 None; vc1 - PSHx: 06:53 section; vc1 - Immunization history:: Client reports having NOT received the Covid vaccine. - Infectious Disease History:: Denies. - Social history:: Smoking status: Patient denies any tobacco usage or history of. ROS: 07:29 Constitutional: Negative for fever, chills, and weight loss, Eyes: Negative for injury, sp3 pain, redness, and discharge, Neck: Negative for injury, pain, and swelling, Respiratory: Negative for shortness of breath, cough, wheezing, and pleuritic chest pain, Abdomen/GI: Negative for abdominal pain, nausea, vomiting, diarrhea, and constipation, Back: Negative for injury and pain, MS/Extremity: Negative for injury and deformity, Skin: Negative for injury, rash, and discoloration, Neuro: Negative for headache, weakness, numbness, tingling, and seizure, Psych: Negative for depression, anxiety, suicide ideation, homicidal ideation, and hallucinations, Allergy/Immunology: Negative for hives, rash, and allergies, Endocrine: Negative for neck swelling, polydipsia, polyuria, polyphagia, and marked weight changes, Hematologic/Lymphatic: Negative for swollen nodes, abnormal bleeding, and unusual bruising, 07:29 All other systems are negative, Exam: 07:30 Constitutional: This is a well developed, well nourished patient who is awake, alert, sp3 and in no acute distress. Head/Face: Normocephalic, atraumatic. Eyes: Pupils equal round and reactive to light, extra-ocular motions intact. Lids and lashes normal. Conjunctiva and sclera are non-icteric and not injected. Cornea within normal limits. Periorbital areas with no swelling, redness, or edema. ENT: Nares patent. No nasal discharge, no septal abnormalities noted. External auditory canals are clear. Oropharynx with no redness, swelling, or masses, exudates, or evidence of obstruction, uvula midline. Mucous membranes moist. Neck: Trachea midline, no thyromegaly or masses palpated, and no cervical lymphadenopathy. Supple, full range of motion without nuchal rigidity, or vertebral point tenderness. No Meningismus. Chest/axilla: Normal chest wall appearance and motion. Nontender with no deformity. No lesions are appreciated. Respiratory: Lungs have equal breath sounds bilaterally, clear to auscultation and percussion. No rales, rhonchi or wheezes noted. No increased work of breathing, no retractions or nasal flaring. Abdomen/GI: Soft, non-tender, with normal bowel sounds. No distension or tympany. No guarding or rebound. No evidence of tenderness throughout. Back: No spinal tenderness. No costovertebral tenderness. Full range of motion. Skin: Warm, dry with normal turgor. Normal color with no rashes, no lesions, and no evidence of cellulitis. MS/ Extremity: Pulses equal, no cyanosis. Neurovascular intact. Full, normal range of motion. Neuro: Awake and alert, GCS 15, oriented to person, place, time, and situation. Cranial nerves II-XII grossly intact. Motor strength 5/5 in all extremities. Sensory grossly intact. Cerebellar exam normal. Normal gait. Psych: Awake, alert, with orientation to person, place and time. Behavior, mood, and affect are within normal limits. 07:30 Cardiovascular: Rate: tachycardic, 07:30 ECG was reviewed by the Attending Physician. EKG demonstrates sinus tachycardia at 120 sp3 bpm with normal intervals, rightward axis, normal QRS, nonspecific diffuse ST/T changes without evidence of acute ischemia. Vital Signs: 06:50 BP 125 / 94; Pulse 124; Resp 18; Temp 98.9; Pulse Ox 100% ; Weight 72.57 kg; Height 5 vc1 ft. 2 in. ; Pain 0/10; 07:32 BP 124 / 86; Pulse 113; Resp 17 S; Pulse Ox 99% on R/A; kc6 08:19 BP 117 / 74; Pulse 88; Resp 18; Pulse Ox 99% on R/A; ph 06:50 Body Mass Index 29.26 (72.57 kg, 157.48 cm) vc1 06:50 Pain Scale: Adult vc1 [place] Coma Score: 07:03 Eye Response: spontaneous(4). Motor Response: obeys commands(6). Verbal Response: bm8 oriented(5). Total: 15. MDM: 07:02 Medical Screening Exam initiated sp3 07:31 Data reviewed: vital signs, nurses notes, old medical records, lab test result(s), EKG, sp3 radiologic studies. ED course: 29-year-old female with history of anxiety now presents with tachycardia. Differential diagnosis includes anxiety, electrolyte disturbance, dehydration, other cardiac pathology, among others. I am not highly suspicious for sepsis, shock, PE, TAD, or any other critical process at this time. Workup will include EKG, chest x-ray, labs, urinalysis, UDS and patient will receive saline 1 L. I have offered Ativan if patient can obtain transportation home. Probable discharge once workup is complete and patient is improved.. 08:47 ED course: Full workup negative and heart rate now down to 76. We will safely discharge sp3 patient home at this time.. 09/07 06:51 Order name: Basic Metabolic Panel; Complete Time: 08: ec2 09/07 06:51 Order name: CBC with Diff; Complete Time: : ec2 09/07 06:51 Order name: Troponin HS; Complete Time: 08: ec2 09/07 06:51 Order name: TSH; Complete Time: 08: ec2 09/07 06:51 Order name: T4 Free; Complete Time: 08: ec2 09/07 06:51 Order name: Influenza Screen (a \T\ B); Complete Time: 08:46 ec2 09/07 06:51 Order name: SARS RAPID; Complete Time: 08:46 ec2 09/07 07:01 Order name: UDS; Complete Time: 08:46 sp3 09/07 07:03 Order name: Test, Serum; Complete Time: 07:40 bm8 09/07 07:27 Order name: CBC Smear Scan; Complete Time: 08:06 EDMS 09/07 06:51 Order name: XRAY Chest (1 view); Complete Time: 07:40 ec2 09/07 06:51 Order name: Cardiac monitoring; Complete Time: 07:02 ec2 09/07 06:51 Order name: EKG - Nurse/Tech; Complete Time: 07:05 ec2 09/07 06:51 Order name: IV Saline Lock; Complete Time: 07:14 ec2 09/07 06:51 Order name: Labs collected and sent; Complete Time: 07:05 ec2 08 06:51 Order name: O2 Per Protocol; Complete Time: 07:02 ec2 09/07 06:51 Order name: O2 Sat Monitoring; Complete Time: 07:02 ec2 Administered Medications: 07:36 Drug: NS 0.9% IV 1000 ml IV at 1 bolus Per protocol; to be given as a bolus over 60 kc6 minutes Route: IV; Rate: 1 bolus; Site: left forearm; 08:55 Follow up: Response: No adverse reaction; IV Status: Completed infusion; IV Intake: ph 1000ml Disposition Summary: 09/07/24 08:48 Discharge Ordered Notes: Location: Home sp3 Condition: Stable sp3 Diagnosis - Anxiety disorder, unspecified sp3 Followup: sp3 - With: Private Physician - When: Upon discharge from the Emergency Department - Reason: Continuance of care Discharge Instructions: - Discharge Summary Sheet sp3 - Managing Anxiety, Adult sp3 Forms: - Medication Reconciliation Form sp3 - Antibiotic Education sp3 - Prescription Opioid Use sp3 - Patient Portal Instructions sp3 - Leadership Thank You Letter sp3 Signatures: Dispatcher [employer] Daniel Abarca MD MD sp3 Anjelica Meléndez RN RN vc1 Zonia Covarrubias RN RN kc6 Rj Raza MD MD ec2 Estella Escobar RN ph Corrections: (The following items were deleted from the chart) 06:51 06:51 BASIC METABOLIC PANEL+C.LAB.BRZ ordered. EDMS EDMS 06:51 06:51 CBC+H.LAB.BRZ ordered. EDMS EDMS 06:51 06:51 Troponin High Sensitivity+C.LAB.BRZ ordered. EDMS EDMS 06:51 06:51 THYROID STIMULAT HORMONE+C.LAB.BRZ ordered. EDMS EDMS 06:51 06:51 T4 FREE+C.LAB.BRZ ordered. EDMS EDMS 06:51 06:51 Influenza Screen (A \T\ B)+BA.LAB.BRZ ordered. EDMS EDMS 06:51 06:51 SARS-COV-2 Antigen Rapid+I.LAB.BRZ ordered. EDMS EDMS 06:51 06:51 Chest Single View+RAD.RAD.BRZ ordered. EDMS EDMS 07:02 07:02 URINE DRUG SCREEN+UC.LAB.BRZ ordered. EDMS EDMS 07:17 06:51 Test, Urine+UC.LAB.BRZ ordered. EDMS EDMS
--- NOTE | 2024-09-07 08:48 | ER ---
Nurse's Notes [facility] Name: Yesica Islas Age: 29 yrs Sex: Female : 1995 Arrival Date: 09/07/2024 Time: 06:38 Bed 5 Private MD: Diagnosis: Anxiety disorder, unspecified Presentation: 09/07 06:50 Chief complaint: Patient states: AROUND 10 PM LAST SHAKY NAUSEOUS, AND HEART. ABOUT AN vc1 HOUR AGO I COULD FEEL MY HEART RACING. IT FEELS LIKE AN ANXIETY ATTACK BUT I'M NOT SURE. Coronavirus screen: Client denies travel out of the [place] in the last 14 days. At this time, the client does not indicate any symptoms associated with coronavirus-19. Ebola Screen: Patient negative for fever greater than or equal to 101.5 degrees Fahrenheit, and additional compatible Ebola Virus Disease symptoms Patient denies exposure to infectious person. Patient denies travel to an Ebola-affected area in the 21 days before illness onset. No symptoms or risks identified at this time. Initial Sepsis Screen: Does the patient meet any 2 criteria? No. Patient's initial sepsis screen is negative. Does the patient have a suspected source of infection? No. Patient's initial sepsis screen is negative. Risk Assessment: Do you want to hurt yourself or someone else?. Onset of symptoms was September 06, 2024 at 22:00. Care prior to arrival: None. Activity prior to arrival: None. Mechanism of Injury: No Mechanism of Injury. Transition of care: patient was not received from another setting of care. 06:50 Method Of Arrival: Ambulatory vc1 06:50 Acuity: KOFI 3 vc1 Triage Assessment: 06:55 General: Appears in no apparent distress. Behavior is calm, cooperative, appropriate vc1 for age. General: Reports FEELS HOT AND SHAKY. Pain: Denies pain. EENT: No deficits noted. No signs and/or symptoms were reported regarding the EENT system. Neuro: Level of Consciousness is awake, alert, obeys commands. Cardiovascular: Reports nausea, palpitations, shortness of breath, Capillary refill < 3 seconds Patient's skin is warm and dry. Rhythm is sinus tachycardia. Cardiovascular: Denies chest pain. Respiratory: Reports shortness of breath Airway is patent Respiratory effort is even, unlabored, Respiratory pattern is regular, symmetrical. Respiratory: Reports the patient has mild shortness of breath. GI: No signs and/or symptoms were reported involving the gastrointestinal system. Abdomen is flat. : No deficits noted. No signs and/or symptoms were reported regarding the genitourinary system. Derm: Skin is intact, is healthy with good turgor, Skin is dry, Skin is normal, Skin temperature is warm. Musculoskeletal: Circulation, motion, and sensation intact. Range of motion: intact in all extremities. 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 - Infectious Disease History:: Denies. - Social history:: Smoking status: Patient denies any tobacco usage or history of. Screenin:54 [facility] ED Fall Risk Assessment (Adult) History of falling in the last 3 months, vc1 including since admission No falls in past 3 months (0 pts) Confusion or Disorientation No (0 pts) Intoxicated or Sedated No (0 pts) Impaired Gait No (0 pts) Mobility Assist Device Used No (0 pt) Altered Elimination No (0 pt) Score/Fall Risk Level 0 - 2 = Low Risk Oriented to surroundings, Maintained a safe environment, Educated pt \T\ family on fall prevention, incl call for assistance when getting out of bed. Abuse screen: Denies threats or abuse. Nutritional screening: No deficits noted. Tuberculosis screening: No symptoms or risk factors identified. Assessment: 07:03 General: Appears in no apparent distress. comfortable, Behavior is calm, cooperative, bm8 appropriate for age. Pain: Denies pain. Neuro: No deficits noted. Level of Consciousness is awake, alert, obeys commands, Oriented to person, place, time, situation, Appropriate for age. Cardiovascular: Reports palpitations, Denies chest pain, Capillary refill < 3 seconds in bilateral fingers Patient's skin is warm and dry. Rhythm is sinus tachycardia. Respiratory: Airway is patent Trachea midline Respiratory effort is even, unlabored, Respiratory pattern is regular, symmetrical, Breath sounds are clear bilaterally. GI: No signs and/or symptoms were reported involving the gastrointestinal system. : No signs and/or symptoms were reported regarding the genitourinary system. EENT: No signs and/or symptoms were reported regarding the EENT system. Derm: No signs and/or symptoms reported regarding the dermatologic system. Musculoskeletal: No signs and/or symptoms reported regarding the musculoskeletal system. 08:55 Reassessment: Patient appears in no apparent distress at this time. Patient and/or ph family updated on plan of care and expected duration. Pain level reassessed. Patient is alert, oriented x 3, equal unlabored respirations, skin warm/dry/pink. Patient states feeling better. Vital Signs: 06:50 BP 125 / 94; Pulse 124; Resp 18; Temp 98.9; Pulse Ox 100% ; Weight 72.57 kg; Height 5 vc1 ft. 2 in. ; Pain 0/10; 07:32 BP 124 / 86; Pulse 113; Resp 17 S; Pulse Ox 99% on R/A; kc6 08:19 BP 117 / 74; Pulse 88; Resp 18; Pulse Ox 99% on R/A; ph 06:50 Body Mass Index 29.26 (72.57 kg, 157.48 cm) vc1 06:50 Pain Scale: Adult vc1 [place] Coma Score: 07:03 Eye Response: spontaneous(4). Motor Response: obeys commands(6). Verbal Response: bm8 oriented(5). Total: 15. ED Course: 06:41 Patient arrived in ED. gm2 06:53 Triage completed. vc1 06:54 Arm band placed on right wrist. vc1 06:59 Patient has correct armband on for positive identification. Bed in low position. Call vc1 light in reach. monitor tech on. Pulse ox on. NIBP on. 07:00 Report received from PIPO Brown. kc6 07:01 Daniel Oviedo MD is Attending Physician. sp3 07:02 Kevin Davidson RN is Primary Nurse. bm8 07:03 Door closed. Noise minimized. Warm blanket given. Verbal reassurance given. Head of bed bm8 elevated. 07:03 No provider procedures requiring assistance completed. Initial lab(s) drawn, by marisol myrick sent to lab. EKG done, by ED staff, reviewed by Daniel Oviedo MD. Missed attempt(s): 20 gauge in left forearm. Bleeding controlled, band aid applied, catheter tip intact. Patient maintains SpO2 saturation greater than 95% on room air. 07:14 Inserted saline lock: 20 gauge in left forearm, using aseptic technique. Flushed with kc6 10 mL NS. 07:32 XRAY Chest (1 view) In Process Unspecified. EDMS 08:55 IV discontinued, intact, bleeding controlled, No redness/swelling at site. Pressure ph dressing applied. Administered Medications: 07:36 Drug: NS 0.9% IV 1000 ml IV at 1 bolus Per protocol; to be given as a bolus over 60 kc6 minutes Route: IV; Rate: 1 bolus; Site: left forearm; 08:55 Follow up: Response: No adverse reaction; IV Status: Completed infusion; IV Intake: ph 1000ml Medication: 07:00 VIS not applicable for this client. vc1 Intake: 08:55 IV: 1000ml; Total: 1000ml. ph Outcome: 08:48 Discharge ordered by . sp3 08:55 Discharged to home ambulatory, ph 08:55 Condition: good 08:55 Discharge instructions given to patient, Instructed on discharge instructions, follow up and referral plans. Demonstrated understanding of instructions, follow-up care, 08:56 Patient left the ED. ph Signatures: Dispatcher [employer] EDMS Estella Esocbar, RN RN ph Daniel Oviedo MD MD sp3 Anjelica Meléndez RN RN vc1 Zonia Covarrubias RN RN [email or web address] Alysia Hammonds 2 Kevin Davidson, RN RN bm8
[2024-09-07 12:59] VITALS: TEMP 98.9
[2024-09-07 13:00] VITALS: O2SAT 99
[2024-09-07 13:02] VITALS: BP 117/74
== END 2024-09-07 08:56 | disposition home or self-care (01) ==
LOC: ER 06:38
DX: F41.9 Anxiety disorder, unspecified (principal); Z11.52 Encounter for screening for COVID-19; Z28.310 Unvaccinated for COVID-19
CPT/HCPCS: 85025; 80048; 36415; 84703; 84443; 84484; 84439; 80307; 87804 ×2; 71045; 96360; 99285; 87811; J7030

== ENCOUNTER 2025-01-18 18:17 | Emergency (ER) | payer OTHER ==
--- OUTSIDE RECORDS SUMMARY | 2025-01-18 18:35 | XMS REPORT | Continuity of Care Document ---
Author Name Unknown Address [address] [facility] [place] [address] [facility] Address [address] [facility] [address] [place] [address] Care Team Providers Care Mortgage Specialist Name Role Phone PCP, PATIENT DOES NOT HAVE A Primary Care Physic betito Unavailable LARON MOONEY Attending Clinician Unavailable LARON MOONEY Attending Clinician Unavailable Laron Mooney MD Attending Clinician [phone] JESSICA CH Attending Clinician Unavailable ITZ ROB Attending Clinician Unavailable Itz Rob DNP Attending Clinician [phone] ARELI JENKINS Attending Clinician Unavailab Areli Acharya DO Attending Clinician [phone] Katlin Mills Attending Clinician Unava iljoesph Doctor Unassigned, Umbarger Attending Clinician U mica 2, [facility] Attending Clinician Unavailable Jennifer Weldon MD Attending Clinician [phone] JENNIFER WELDON Attending Clinician Unavailable JENNIFER WELDON Attending Clinician Unavailable WILLIAM LOPEZ Attending Clinician Unavailable WILLIAM LOPEZ Attending Clinician Unavailable William Lopez MD Attending Clinician [phone] MAGDALENE LOZOYA Attending Clinician MAGDALENE Ross Attending Clinician Thien buck Pob, [facility] Main Attending Clinician Unavailabl e 2, [facility] Attending Clinician Unavailable JOSE INFANTE Attending Clinician Unavailable JOSE INFANTE Attending Clinician Unavailable Ultrasound, [facility] Attending Clinician UnavailJose Glez MD Attending Clinician + [phone] Doctor Unassigned, Umbarger Attending Clinician U HERMINIA Smith Attending Clinician Unavailable Herminia Miller NP Attending Clinician + [phone] MOISE WALKER Attending Clinician Unavailable Moise Walker DO Attending Clinician [phone] LARISSA VEGA Attending Clinician Unavailable LARISSA VEGA Attending Clinician Unavailable Larissa Vega MD Attending Clinician [phone] Zayda Curiel LMSW Attending Clinician Unava ilNOE Mccullough Attending Clinician UnavailNoe Contreras MD Attending Clinician [phone] LUZ ELENA DECKER Attending Clinician Unavailable Luz Elena Decker MD Attending Clinician [phone] Lab, Ang - Db Attending Clinician Unavailable EBENEZER ARAUJO Attending Clinician UnavailEBENEZER Roblero Attending Clinician Unavaila KENYA Rolle Attending Clinician Unavailable Kenya Fry Attending Clinician [phone] Unknown, Attending Attending Clinician Unavailab Yvan Rodriguez Attending Clinician [phone] YVAN GOODE Attending Clinician Unavailable Yaakov CRAIG, Sendil K.H. Attending Clinician + [phone] LISA BO K.H. Attending Clinician UnavailNEERU Hope Attending Clinician Unavailable Neeru Byrd MD Attending Clinician [phone] Stephanie Ro MD Attending Clinician + [phone] STEPHANIE RO Attending Clinician Unavailable Pob, [facility] Main Attending Clinician Unavailabl e Only, [facility] Test Attending Clinician Unavailable Anny Ybarra PA-C Attending Clinician [phone] ANNY YBARRA Attending Clinician Unavailable Jaswant Kirby Attending Clinician [phone] Yamila Blum MD, Herbert Attending Clinician + HERBERT COLBY Attending Clinician Rosana Mo RN, Lisa Parikh Attending Clinician Unaeblla rocha Nurse, [facility] Attending Clinician Un available Keri CRAIG, Donell Attending Clinician [phone] Edgardo Recinos MD Attending Clinician [phone] Mart Steele Attending Clinician Unavailable Ultrasound, [facility] Attending Clinician Unavailcurtis Chisholm MD, Harry Hartley Attending Clinician [phone] LARON MOONEY Admitting Clinician Unavailable MAGDALENE LOZOYA Admitting Clinician JENNIFER Magallon Admitting Clinician Unavailable ARELI JENKINS Admitting Clinician Unavailab Kaleb CRAIG, Laron [place] Admitting Clinician [phone] LISA BO Admitting Clinician UnavailJennifer Horvath MD Admitting Clinician [phone] STEPHANIE RO Admitting Clinician Unavailable Payers Payer Name Policy Type Policy Number Effective Date Expirati on Date Source [facility] [id number] 2018 00:00:00 Problems Condition Name Condition Details Condition Category Status Onset Date Resolution Date Last Treatment Date Treating Clinician Comments Source History of anxiety History of anxiety Disease Active 03-31 00:00: 00 [facility] Fever, unspecifie d Fever, unspecifie d Disease Active 10-10 00:00: 00 [facility] Nexplanon in place Nexplanon in place Disease Resolve d 6 00:00: 00 2024-12-31 00:00:00 2024-12-31 14:39:17 [facility] Encounter for screening for maternal depression Encounter for screening for maternal depression Disease Resolve d 2022-0 8-17 00:00: 00 2024-12-31 00:00:00 2024-12-31 14:39:15 [facility] Previous section Previous section Disease Resolve d 2019-0 9-30 00:00: 00 2024-12-31 00:00:00 2024-12-31 14:39:13 [facility] 39 weeks gestation of 39 weeks gestation of Disease Resolve d 2023-0 4-24 00:00: 00 2024-03-03 00:00:00 2024-03-03 15:39:39 [facility] Excessive growth affecting management of in third trimester Excessive growth affecting management of in third trimester Disease Resolve d 2023-0 4-24 00:00: 00 2024-03-03 00:00:00 2024-03-03 15:39:34 [facility] Abdominal pain affecting Abdominal pain affecting Disease Resolve d 2023-0 4-11 00:00: 00 2024-03-03 00:00:00 2024-03-03 15:39:40 [facility] Excessive weight gain during , antepartum Excessive weight gain during , antepartum Disease Resolve d 2022-1 2-13 00:00: 00 2024-03-03 00:00:00 2024-03-03 15:39:41 [facility] High-risk in third trimester High-risk in third trimester Disease Resolve d 2022-1 0-06 00:00: 00 2024-03-03 00:00:00 2024-03-03 15:39:44 [facility] Liveborn infant, of [place] , born in hospital by delivery Liveborn infant, of [place] , born in hospital by delivery Disease Resolve d 2020-0 1-28 00:00: 00 2024-03-03 00:00:00 2024-03-03 15:39:43 [facility] Pyelonephr itis complicati ng in second trimester Pyelonephr itis complicati ng in second trimester Disease Resolve d 2023-0 1-10 00:00: 00 2024-01-23 00:00:00 2024-01-23 07:40:57 [facility] Chlamydia trachomati s infection of lower genitourin cuca sites Chlamydia trachomati s infection of lower genitourin cuca sites Disease Resolve d 0 9-12 00:00: 00 2024-01-23 00:00:00 2024-01-23 07:41:04 [facility] 30 weeks gestation of 30 weeks gestation of Disease Resolve d 0 2-21 00:00: 00 2024-01-03 00:00:00 2024-01-23 07:38:19 [facility] 32 weeks gestation of 32 weeks gestation of Disease Resolve d 0 2-21 00:00: 00 2023-12-20 00:00:00 2024-01-23 07:38:21 [facility] Pyelonephr itis complicati ng , second trimester Pyelonephr itis complicati ng , second trimester Disease Resolve d 0 1-11 00:00: 00 2023-11-21 00:00:00 2023-11-21 11:06:35 [facility] 24 weeks gestation of 24 weeks gestation of Disease Resolve d 0 1-10 00:00: 00 2023-11-07 00:00:00 2023-11-07 16:23:11 [facility] examinatio n or test, positive result examinatio n or test, positive result Disease Resolve d 0 -17 00:00: 00 2023-06-08 00:00:00 2023-06-08 15:12:11 [facility] BMI 25.0-25.9, adult BMI 25.0-25.9, adult Disease Resolve d 0 8-17 00:00: 00 2023-06-08 00:00:00 2023-06-08 15:12:13 [facility] Obesity (BMI 30-39.9) Obesity (BMI 30-39.9) Disease Resolve d 2019-10 1-25 00:00: 00 2023-04-11 00:00:00 2023-04-11 09:57:04 [facility] 39 weeks gestation of 39 weeks gestation of Disease Resolve d 2021-0 5-02 00:00: 00 2022-02-13 00:00:00 2022-02-13 17:49:32 [facility] Anemia, antepartum , third trimester Anemia, antepartum , third trimester Disease Resolve d 0 5-02 00:00: 00 2022-02-13 00:00:00 2022-02-13 10:56:12 [facility] Positive GBS test Positive GBS test Disease Resolve d 0 1-28 00:00: 00 2022-02-13 00:00:00 2022-02-13 17:49:35 [facility] Supervisio n of high risk , antepartum Supervisio n of high risk , antepartum Disease Resolve d 9-30 00:00: 00 2022-02-13 00:00:00 2024-01-23 07:40:48 [facility] 39 weeks gestation of 39 weeks gestation of Disease Resolve d 0 1-28 00:00: 00 2020-11-23 00:00:00 2020-11-23 14:39:57 [facility] Allergies, Adverse Reactions, Alerts Allergy Name Allergy Type Status Severity Reaction(s) Onset Date Inactive Date Treating Clinician Comments Source No Known Drug Allergie s DA Active U 2019-10 2 00:00: 00 [facility] NO KNOWN ALLERGIE S Drug Class Active [facility] Social History Social Habit Start Date Stop Date Quantity Comments Source ASSERTION 2023-05-08 00:00:00 [facility] Alcoholic beverage intake 2024-12-31 00:00:00 2024-12-31 00:00:00 Ex-drinker (finding) [facility] Alcohol intake 2023-12-20 00:00:00 2023-12-20 00:00:00 Ex-drinker (finding) [facility] History of Social function 2023-10-10 00:00:00 2023-10-10 00:00:00 [facility] Exposure to SARS-CoV-2 (event) 2023-01-27 00:00:00 2023-02-06 16:37:00 Not sure [facility] Tobacco use and exposure 2022-05-19 00:00:00 2022-05-19 00:00:00 Smokeless tobacco non-user [facility] Sex assigned at 1995 00:00:00 1995 00:00:00 [facility] Smoking Status Start Date Stop Date Source Never smoked tobacco [facility] Medications Ordered Medication Name Filled Medication Name Start Date Stop Date Current Medication? Ordering Clinician Indication Dosage Frequency Signature (SIG) Comments Components Source cefTRIAXone (ROCEPHIN) 350 mg/mL in Lidocaine 1 % injection 1,000 mg 11-16 05:15: 00 11-16 05:15 :00 Yes 1000mg 1,000 mg, Intramuscu lar, ONCE, 1 dose, On 11/15/24 at 2315, LIN, Reason for Anti-Infec tive: Documented Infection, Documented Infection Site: Urine, Duration of Therapy: Once (ED) [facility] ibuprofen (MOTRIN) tablet 800 mg 11-16 01:15: 00 11-16 01:35 :00 No 800mg 800 mg, Oral, ONCE, 1 dose, [facility]24 [facility] 1915[facility] capsule 11-15 00:00: 00 11-21 05:59 :00 Yes [id number] 500mg Take 1 capsule by mouth 4 (four) times daily for 5 days. [facility] dicyclomine (BENTYL) tablet 20 mg - 06:30: 00 10-03 06:47 :00 No 20mg 20 mg, Oral, ONCE, 1 dose, On 10/03/24 at 0030, LIN [facility] famotidine (PEPCID (PF)) injection 20 mg - 06:30: 00 10-03 06:48 :00 No 20mg 20 mg, Slow IV Push, ONCE, 1 dose, On Sun10/03/24 at 0030, LIN [facility] NaCl 0.9% (NS) bolus infusion 1,000 mL 10-03 06:15: 00 10-03 07:31 :00 No 1000mL at 999 mL/hr, 1,000 mL, IV Infusion, ONCE, 1 dose, On Sun10/03/24 at 0015, STAT [facility] ondansetron (ZOFRAN (PF)) injection 4 mg 10-03 06:15: 00 10-03 06:25 :00 No 4mg 4 mg, Slow IV Push, ONCE, 1 dose, On Sun10/03/24 at 0015, Administer over 2-5 Minutes, 2 mL [facility] ondansetron 4 mg disintegrat ing tablet 10-03 00:00: 00 Yes [id number] 4mg Take 1 tablet by mouth every 12 (twelve) hours as needed for Nausea and Vomiting (N/V). [facility] dicyclomine 20 mg tablet 10-03 00:00: 00 Yes [id number] 20mg Take 1 tablet by mouth 3 (three) times daily as needed for Abdominal pain. [facility] famotidine (PEPCID) 20 mg tablet 10-03 00:00: 00 Yes [id number] 20mg Take 1 tablet by mouth in the morning and 1 tablet in the evening. [facility] sulfamethox azole-trime thoprim (BACTRIM DS) 800-160 mg per tablet 2023-1008 00:00: 00 09-11 05:59 :00 No [id number] 1{tbl} Take 1 tablet by mouth in the morning and 1 tablet in the evening. Do all this for 3 days. [facility] fluconazole 150 mg tablet 2023-10 2- 00:00: 00 09-05 05:59 :00 No [id number] 150mg Take 1 tablet by mouth once now for 1 dose. [facility] fluconazole 150 mg tablet 05-28 00:00: 00 05-29 04:59 :00 No [id number] 150mg Take 1 tablet by mouth once now for 1 dose. [facility] etonogestre L (NEXPLANON) implant 68 mg 03-03 22:30: 00 03-03 21:34 :00 No [id number] 68mg [facility] valACYclovi r (VALTREX) 1 gram tablet 01-30 00:00: 00 02-01 04:59 :00 No [id number] 2g Take 2 tablets by mouth in the morning and 2 tablets in the evening. Do all this for 1 day. [facility] ibuprofen (IBU) tablet 600 mg 01-23 17:00: 00 Yes 600mg 600 mg, Oral, Q6H ABX, First dose (after last modificati on) on Zeina 01/24/24 at 1200, Until Discontinu ed, Routine [facility] ketorolac (TORADOL) injection 30 mg 01-23 05:00: 00 01-23 12:23 :58 No 30mg 30 mg, Slow IV Push, Q6H ABX, 4 doses, First dose on Zeina 01/24/24 at 0000, Last dose on Sun01/24/24 at 1800, Routine [facility] vitamin w/FA tablet 01-23 00:00: 00 05-26 00:00 :00 No [id number] 1{tbl} Take 1 tablet by mouth in the morning. [facility] docusate 100 mg capsule 01-23 00:00: 00 05-26 00:00 :00 No [id number] 200mg Take 2 capsules by mouth once daily as needed for Constipati on. [facility] ferrous sulfate 325 mg (65 mg iron) tablet 01-23 00:00: 00 05-26 00:00 :00 No [id number] 325mg Take 1 tablet by mouth in the morning. [facility] ibuprofen 600 mg tablet 01-23 00:00: 03-03 00:00 :00 No [id number] 600mg Take 1 tablet by mouth every 6 (six) hours as needed (Pain). Take with food or milk. [facility] acetaminoph en (TYLENOL) 325 mg tablet 01-23 00:00: 00 03-03 00:00 :00 No [id number] 650mg Take 2 tablets by mouth every 6 (six) hours as needed for Pain (scale 1-3) or Pain (scale 4-6). [facility] HYDROcodone -acetaminop hen 5-325 mg tablet 01-23 00:00: 01-31 04:59 :00 No [id number] 1{tbl} Take 1 tablet by mouth every 6 (six) hours as needed (Pain scale above 4) for up to 7 days. Do not exceed 3 grams of acetaminop hen in 24 hours. Indication s: acute pain [facility] gabapentin 300 mg capsule 01-23 00:00: 01-29 04:59 :00 No [id number] 300mg Take 1 capsule by mouth in the morning and 1 capsule at noon and 1 capsule in the evening. Do all this for 5 days. [facility] acetaminoph en (TYLENOL) tablet 1,000 mg 01-22 21:00: 00 Yes 1000mg 1,000 mg, Oral, Q8H ABX, First dose on Sun01/23/24 at 1600, Until Discontinu ed, Routine [facility] gabapentin (NEURONTIN) capsule 300 mg 01-22 19:00: 00 Yes 300mg 300 mg, Oral, TID, First dose on Sun01/23/24 at 1400, Until Discontinu ed, Routine [facility] lactated ringers IV infusion 1,000 mL 01-22 15:00: 00 01-22 20:06 :00 No 1000mL at 125 mL/hr, 1,000 mL, IV Infusion, ONCE, 1 dose, On Sun01/23/24 at 1000, Routine [facility] rho(D) immune globulin (RHOGAM) syringe 300 mcg 01-22 14:45: 08 Yes 300ug 300 mcg, Intramuscu lar, ONCE, For 1 dose, Conditiona l, Routine [facility] oxyCODONE immediate release tablet 5 mg 01-22 14:45: 03 Yes 5mg 5 mg, Oral, Q6HPRN, Starting on Sun01/23/24 at 0945, Until Discontinu ed, Routine, Pain (scale 7-10)
F aculty member approving Restricted medication : LARON MOONEY [facility] diphenhydrA MINE (BENADRYL) injection 25 mg 01-22 14:45: 03 Yes 25mg 25 mg, Slow IV Push, Q6HPRN, Starting on Sun01/23/24 at 0945, Until Discontinu ed, Routine, Itching [facility] diphenhydrA MINE (BENADRYL) tablet 25 mg 01-22 14:45: 02 Yes 25mg 25 mg, Oral, Q6HPRN, Starting on Sun01/23/24 at 0945, Until Discontinu ed, Routine, Sleep, Itching [facility] ondansetron (ZOFRAN (PF)) injection 4 mg 01-22 14:45: 02 Yes 4mg 4 mg, Slow IV Push, Q8HPRN, Starting on Sun01/23/24 at 0945, Until Discontinu ed, Routine, Nausea and Vomiting (N/V) [facility] bisacodyL (DULCOLAX) suppository 10 mg 01-22 14:45: 02 Yes 10mg 10 mg, Rectal, QDAILYPRN, Starting on Sun01/23/24 at 0945, Until Discontinu ed, Routine, Constipati on [facility] simethicone (GAS RELIEF (SIMETHICON E)) chewable tablet 160 mg 01-22 14:45: 02 Yes 160mg 160 mg, Oral, PC+HSPRN, Starting on Sun01/23/24 at 0945, Until Discontinu ed, Routine, Gas [facility] docusate (COLACE) capsule 200 mg 01-22 14:45: 02 Yes 200mg 200 mg, Oral, QDAILYPRN, Starting on Sun01/23/24 at 0945, Until Discontinu ed, Routine, Constipati on [facility] magnesium hydroxide (MILK OF MAGNESIA) 400 mg/5 mL suspension 30 mL 01-22 14:45: 02 Yes 30mL 30 mL, Oral, QDAILYPRN, Starting on Sun01/23/24 at 0945, Until Discontinu ed, Routine, Constipati on [facility] lactated ringers IV infusion 1,000 mL 01-22 14:45: 02 Yes 1000mL at 125 mL/hr, 1,000 mL, IV Infusion, PRN, 1 dose, Starting on Sun01/23/24 at 0945, Until Discontinu ed, Routine [facility] sodium chloride 0.9 % irrigation solution 01-22 13:51: 00 Yes PRN, Starting on Sun01/23/24 at 0851, Until Discontinu ed, Intra-op [facility] mupirocin (BACTROBAN OINT) 2 % oinintment 01-22 13:51: 00 Yes Intra-op [facility] ceFAZolin (ANCEF) 2,000 mg in NaCl 0.9% (NS) 100 mL MINI-BAG 01-22 10:25: 39 01-22 14:45 :06 No 2000mg 2,000 mg, IV Piggyback, O.R. HOLDING ONCE, Starting on Sun01/23/24 at 0525, Until Sun01/23/24 at 0945, Administer over 30 Minutes, 100 mL
Reas on for Anti-Infec tive: Surgical Prophylaxi s
Surgi raymond Prophylaxi s: SALAD CHEF
Duration of therapy: within 24 hours of surgery [facility] sodium citrate-cit saranya acid (BICITRA) 500-334 mg/5 mL solution 30 mL 01-22 10:25: 34 01-22 12:39 :00 No 30mL 30 mL, Oral, PRE-PROCED URE ONCE, 1 dose, Starting on Sun01/23/24 at 0525, Until Discontinu ed, Routine, Surgery/Pr ocedure [facility] D5W-LR IV infusion 1,000 mL 01-22 10:25: 34 01-22 14:45 :06 No 1000mL at 1-125 mL/hr, IV Infusion, TITRATE, Starting on Sun01/23/24 at 0525, Until Sun01/23/24 at 0945, Routine [facility] lactated ringers IV infusion 1,000 mL 01-10 02:00: 00 01-10 01:45 :00 No 1000mL at 999 mL/hr, 1,000 mL, Intravenou s, ONCE, 1 dose, On Zeina 01/10/24 at 2100, Routine [facility] amoxicillin 500 mg tablet -14 00:00: 00 12-19 00:00 :00 No [id number] 500mg Take 1 tablet by mouth in the morning and 1 tablet at noon and 1 tablet in the evening. Do all this for 10 days. [facility] NaCl 0.9% (NS) bolus infusion 1,000 mL 11-24 03:30: 00 11-24 04:07 :00 No 1000mL at 999 mL/hr, 1,000 mL, IV Piggyback, ONCE, 1 dose, On Sun11/23/23 at 2130, STAT [facility] hydrOXYzine 25 mg tablet 11-21 00:00: 00 01-23 00:00 :00 No [id number] 25mg Take 1 tablet by mouth every 6 (six) hours as needed for Itching. [facility] hydrocortis one 2.5 % ointment 11-21 00:00: 00 01-23 00:00 :00 No [id number] Apply to affected area(s) 2 (two) times daily as needed for Itching. [facility] cephALEXin 500 mg capsule 2-07 00:00: 00 01-23 00:00 :00 No [id number] 108 500mg Take 1 capsule by mouth in the morning. [facility] amoxicillin -clavulanat e (AUGMENTIN) 875-125 mg per tablet 10-16 00:00: 00 10-27 05:59 :00 No [id number] 108 1{tbl} Take 1 tablet by mouth in the morning and 1 tablet in the evening. Do all this for 10 days. [facility] clotrimazol e 1 % vaginal cream 10-16 00:00: 00 10-24 05:59 :00 No [id number] 1{appli cator} Insert 1 Applicator into vagina at bedtime for 7 days. [facility] cefTRIAXone (ROCEPHIN) 2,000 mg in NaCl 0.9% (NS) 100 mL MINI-BAG 10-12 00:15: 00 10-12 00:26 :00 No 2000mg 2,000 mg, IV Piggyback, ONCE, 1 dose, On Zeina 10/11/23 at 1815, Administer over 30 Minutes, 100 mL
Reas on for Anti-Infec tive: Documented Infection< br>Documen kasi Infection Site: Urine
D uration of Therapy: Other (see Comments) [facility] PNV no.95/lana us fum/folic ac ( ORAL) 10-11 17:32: 56 10-11 00:00 :00 No Take by mouth. [facility] KCL (KLOR-CON M20) tablet 20 mEq 10-11 12:15: 00 10-11 12:19 :00 No 20meq 20 mEq, Oral, ONCE, 1 dose, On Zeina 10/11/23 at 0615, Routine [facility] KCL (KLOR-CON M20) tablet 40 mEq 10-11 11:45: 00 10-11 11:39 :00 No 40meq 40 mEq, Oral, ONCE, 1 dose, On Zeina 10/11/23 at 0545, Routine [facility] acetaminoph en (TYLENOL) tablet 650 mg 10-11 07:27: 00 10-11 07:29 :00 No 650mg 650 mg, Oral, ONCE, 1 dose, On Zeina 10/11/23 at 0130, Routine [facility] D5W 0.9% NaCl (NS) IV infusion 1,000 mL 10-11 00:15: 00 Yes 1000mL at 125 mL/hr, 1,000 mL, IV Infusion, CONTINUOUS , Starting on Sun10/10/23 at 1815, Until Discontinu ed, Routine [facility] cefTRIAXone (ROCEPHIN) 2,000 mg in NaCl 0.9% (NS) 100 mL MINI-BAG 10-11 00:15: 00 10-11 00:37 :00 No 2000mg 2,000 mg, IV Piggyback, ONCE, 1 dose, On Sun10/10/23 at 1815, Administer over 30 Minutes, 100 mL
Reas on for Anti-Infec tive: Documented Infection< br>Documen kasi Infection Site: Urine
D uration of Therapy: Other (see Comments) [facility] PNV 67-iron ps-folate no.1-dha (VITAFOL ULTRA) 29 mg iron- 1 mg-200 mg Cap 10-11 00:00: 00 01-23 00:00 :00 No [id number] Take 1 TAB-CAP/M2 by mouth in the morning. [facility] amoxicillin 875 mg tablet 10-11 00:00: 00 10-24 05:59 :00 No [id number] 108 875mg Take 1 tablet by mouth in the morning and 1 tablet in the evening. Do all this for 12 days. [facility] NaCl 0.9% (NS) IV infusion 1,000 mL 10-11 00:00: 00 10-10 23:45 :05 No 1000mL at 999 mL/hr, IV Infusion, ONCE, 1 dose, On Sun10/10/23 at 1800, Routine [facility] NaCl 0.9% (NS) IV infusion 1,000 mL 10-10 21:45: 00 10-10 22:12 :54 No 1000mL at 999 mL/hr, IV Infusion, ONCE, 1 dose, On Sun10/10/23 at 1545, Routine [facility] PNV no.95/lana us fum/folic ac ( ORAL) 10-10 14:44: 33 Yes Take by mouth. [facility] PNV no.95/lana us fum/folic ac ( ORAL) 2022-10 1- 11:38: 56 Yes Take by mouth. [facility] azithromyci n 500 mg tablet - 00:00: 00 06-13 04:59 :00 No [id number] 1000mg Take 2 tablets by mouth once now for 1 dose. [facility] polymyxin B sulf-trimet hoprim 10,000 unit- 1 mg/mL ophthalmic drops 03-21 00:00: 00 06-08 00:00 :00 No [id number] 1[drp] Place 1 Drop in both eyes every 4 (four) hours. [facility] cephALEXin (KEFLEX) 500 mg capsule 02-06 00:00: 00 02-17 04:59 :00 No [id number] 500mg Take 1 capsule by mouth 4 (four) times daily for 10 days. [facility] clindamycin 150 mg capsule -15 00:00: 00 05-21 04:59 :00 No [id number] 150mg Take 1 capsule by mouth 4 (four) times daily for 5 days. [facility] vitamin w/FA tablet - 00:00: 00 Yes [id number] 1{tbl} Take 1 tablet by mouth daily. [facility] vitamin w/FA tablet 01-31 00:00: 00 06-08 00:00 :00 No [id number] 1{tbl} Take 1 tablet by mouth daily. [facility] ferrous sulfate 325 mg (65 mg iron) tablet 01-31 00:00: 00 06-08 00:00 :00 No [id number] 325mg Take 1 tablet by mouth 2 (two) times daily. [facility] Nitrofurant oin&Nit. Macrocryst (MACROBID) 100 mg capsule 2020-10 220 00:00: 00 10-14 00:00 :00 No [id number] 100mg Take 1 capsule by mouth 2 (two) times daily. [facility] VITAFOL ULTRA 29 mg iron- 1 mg-200 mg Cap 06-28 00:00: 00 12-12 00:00 :00 No 1{capsu le} Take 1 capsule by mouth daily. [facility] ACYCLOVIR ORAL 10-29 07:47: 18 10-29 00:00 :00 No Take by mouth. [facility] ferrous sulfate 325 mg (65 mg iron) tablet 10-29 00:00: 00 01-31 00:00 :00 No [id number] 325mg Take 1 tablet by mouth 2 (two) times daily. [facility] vitamin w/FA tablet 10-29 00:00: 00 10-14 00:00 :00 No [id number] 1{tbl} Take 1 tablet by mouth daily. [facility] hydrOXYzine 25 mg tablet 10-14 00:00: 00 10-29 00:00 :00 No [id number] 25mg Take 1 tablet by mouth every 6 (six) hours as needed for Itching. [facility] metroNIDAZO LE 500 mg tablet 10-03 00:00: 00 10-21 00:00 :00 No TAKE 1 TABLET BY MOUTH 1 TIME NOW FOR 1 DOSE [facility] Immunizations Ordered Immunization Name Filled Immunization Name Date Status Comments Source Flu Injectable MDCK Pres-Free (FLUCELVAX) 2024-12-31 00:00:00 Completed [facility] TDAP 2023-11-07 00:00:00 Completed [facility] TDAP 2023-11-07 00:00:00 Completed [facility] Influenza Virus Vaccine Quad IM, Preserv and ABX Free 6 MO-64 YRS (FLUCELVAX) 2023-07-06 00:00:00 Completed [facility] Influenza Virus Vaccine Quad IM, Preserv and ABX Free 6 MO-64 YRS (FLUCELVAX) 2023-07-06 00:00:00 Completed [facility] TDAP 2021-11-30 00:00:00 Completed [facility] TDAP 2021-11-30 00:00:00 Completed [facility] TDAP 2021-11-30 00:00:00 Completed [facility] TDAP 2021-11-30 00:00:00 Completed [facility] TDAP 2021-11-30 00:00:00 Completed [facility] TDAP 2021-11-30 00:00:00 Completed [facility] TDAP 2021-11-30 00:00:00 Completed [facility] TDAP 2021-11-30 00:00:00 Completed [facility] TDAP 2021-11-30 00:00:00 Completed [facility] TDAP 2021-11-30 00:00:00 Completed [facility] TDAP 2021-11-30 00:00:00 Completed [facility] TDAP 2021-11-30 00:00:00 Completed [facility] TDAP 2021-11-30 00:00:00 Completed [facility] TDAP 2021-11-30 00:00:00 Completed [facility] TDAP 2021-11-30 00:00:00 Completed [facility] TDAP 2021-11-30 00:00:00 Completed [facility] TDAP 2021-11-30 00:00:00 Completed [facility] TDAP 2021-11-30 00:00:00 Completed [facility] TDAP 2021-11-30 00:00:00 Completed [facility] TDAP 2021-11-30 00:00:00 Completed [facility] Influenza Virus Vaccine Quad .5 mL IM 6+ MO 2021-08-19 00:00:00 Completed [facility] Influenza Virus Vaccine Quad .5 mL IM 6+ MO 2021-08-19 00:00:00 Completed [facility] Influenza Virus Vaccine Quad .5 mL IM 6+ MO 2021-08-19 00:00:00 Completed [facility] Influenza Virus Vaccine Quad .5 mL IM 6+ MO 2021-08-19 00:00:00 Completed [facility] Influenza Virus Vaccine Quad .5 mL IM 6+ MO 2021-08-19 00:00:00 Completed [facility] Influenza Virus Vaccine Quad .5 mL IM 6+ MO 2021-08-19 00:00:00 Completed [facility] Influenza Virus Vaccine Quad .5 mL IM 6+ MO 2021-08-19 00:00:00 Completed [facility] Influenza Virus Vaccine Quad .5 mL IM 6+ MO 2021-08-19 00:00:00 Completed [facility] Influenza Virus Vaccine Quad .5 mL IM 6+ MO 2021-08-19 00:00:00 Completed [facility] Influenza Virus Vaccine Quad .5 mL IM 6+ MO 2021-08-19 00:00:00 Completed [facility] Influenza Virus Vaccine Quad .5 mL IM 6+ MO 2021-08-19 00:00:00 Completed [facility] Influenza Virus Vaccine Quad .5 mL IM 6+ MO 2021-08-19 00:00:00 Completed [facility] Influenza Virus Vaccine Quad .5 mL IM 6+ MO 2021-08-19 00:00:00 Completed [facility] Influenza Virus Vaccine Quad .5 mL IM 6+ MO (FLUZONE/FLULAVAL/FL UARIX) 2021-08-19 00:00:00 Completed [facility] Influenza Virus Vaccine Quad .5 mL IM 6+ MO (FLUZONE/FLULAVAL/FL UARIX) 2021-08-19 00:00:00 Completed [facility] Influenza Virus Vaccine Quad .5 mL IM 6+ MO (FLUZONE/FLULAVAL/FL UARIX) 2021-08-19 00:00:00 Completed [facility] Influenza Virus Vaccine Quad .5 mL IM 6+ MO (FLUZONE/FLULAVAL/FL UARIX) 2021-08-19 00:00:00 Completed [facility] Influenza Virus Vaccine Quad .5 mL IM 6+ MO (FLUZONE/FLULAVAL/FL UARIX) 2021-08-19 00:00:00 Completed [facility] Influenza Virus Vaccine Quad .5 mL IM 6+ MO (FLUZONE/FLULAVAL/FL UARIX) 2021-08-19 00:00:00 Completed [facility] Influenza Virus Vaccine Quad .5 mL IM 6+ MO (FLUZONE/FLULAVAL/FL UARIX) 2021-08-19 00:00:00 Completed [facility] TDAP 2020-08-25 00:00:00 Completed [facility] TDAP 2020-08-25 00:00:00 Completed [facility] TDAP 2020-08-25 00:00:00 Completed [facility] TDAP 2020-08-25 00:00:00 Completed [facility] TDAP 2020-08-25 00:00:00 Completed [facility] TDAP 2020-08-25 00:00:00 Completed [facility] TDAP 2020-08-25 00:00:00 Completed [facility] TDAP 2020-08-25 00:00:00 Completed [facility] TDAP 2020-08-25 00:00:00 Completed [facility] TDAP 2020-08-25 00:00:00 Completed [facility] TDAP 2020-08-25 00:00:00 Completed [facility] TDAP 2020-08-25 00:00:00 Completed [facility] TDAP 2020-08-25 00:00:00 Completed [facility] TDAP 2020-08-25 00:00:00 Completed [facility] TDAP 2020-08-25 00:00:00 Completed [facility] TDAP 2020-08-25 00:00:00 Completed [facility] TDAP 2020-08-25 00:00:00 Completed [facility] TDAP 2020-08-25 00:00:00 Completed [facility] TDAP 2020-08-25 00:00:00 Completed [facility] TDAP 2020-08-25 00:00:00 Completed [facility] Influenza Virus Vaccine Quad .5 mL IM 6+ MO 2020-06-30 00:00:00 Completed [facility] Influenza Virus Vaccine Quad .5 mL IM 6+ MO 2020-06-30 00:00:00 Completed [facility] Influenza Virus Vaccine Quad .5 mL IM 6+ MO 2020-06-30 00:00:00 Completed [facility] Influenza Virus Vaccine Quad .5 mL IM 6+ MO 2020-06-30 00:00:00 Completed [facility] Influenza Virus Vaccine Quad .5 mL IM 6+ MO 2020-06-30 00:00:00 Completed [facility] Influenza Virus Vaccine Quad .5 mL IM 6+ MO 2020-06-30 00:00:00 Completed [facility] Influenza Virus Vaccine Quad .5 mL IM 6+ MO 2020-06-30 00:00:00 Completed [facility] Influenza Virus Vaccine Quad .5 mL IM 6+ MO 2020-06-30 00:00:00 Completed [facility] Influenza Virus Vaccine Quad .5 mL IM 6+ MO 2020-06-30 00:00:00 Completed [facility] Influenza Virus Vaccine Quad .5 mL IM 6+ MO 2020-06-30 00:00:00 Completed [facility] Influenza Virus Vaccine Quad .5 mL IM 6+ MO 2020-06-30 00:00:00 Completed [facility] Influenza Virus Vaccine Quad .5 mL IM 6+ MO 2020-06-30 00:00:00 Completed [facility] Influenza Virus Vaccine Quad .5 mL IM 6+ MO 2020-06-30 00:00:00 Completed [facility] Influenza Virus Vaccine Quad .5 mL IM 6+ MO (FLUZONE/FLULAVAL/FL UARIX) 2020-06-30 00:00:00 Completed [facility] Influenza Virus Vaccine Quad .5 mL IM 6+ MO (FLUZONE/FLULAVAL/FL UARIX) 2020-06-30 00:00:00 Completed [facility] Influenza Virus Vaccine Quad .5 mL IM 6+ MO (FLUZONE/FLULAVAL/FL UARIX) 2020-06-30 00:00:00 Completed [facility] Influenza Virus Vaccine Quad .5 mL IM 6+ MO (FLUZONE/FLULAVAL/FL UARIX) 2020-06-30 00:00:00 Completed [facility] Influenza Virus Vaccine Quad .5 mL IM 6+ MO (FLUZONE/FLULAVAL/FL UARIX) 2020-06-30 00:00:00 Completed [facility] Influenza Virus Vaccine Quad .5 mL IM 6+ MO (FLUZONE/FLULAVAL/FL UARIX) 2020-06-30 00:00:00 Completed [facility] Influenza Virus Vaccine Quad .5 mL IM 6+ MO (FLUZONE/FLULAVAL/FL UARIX) 2020-06-30 00:00:00 Completed [facility] HPV 2012-02-08 00:00:00 Completed [facility] HPV 2012-02-08 00:00:00 Completed [facility] HPV 2012-02-08 00:00:00 Completed [facility] HPV 2012-02-08 00:00:00 Completed [facility] HPV 2012-02-08 00:00:00 Completed [facility] HPV 2012-02-08 00:00:00 Completed [facility] HPV 2012-02-08 00:00:00 Completed [facility] HPV 2012-02-08 00:00:00 Completed [facility] HPV 2012-02-08 00:00:00 Completed [facility] HPV 2012-02-08 00:00:00 Completed [facility] HPV 2012-02-08 00:00:00 Completed [facility] HPV 2012-02-08 00:00:00 Completed [facility] HPV 2012-02-08 00:00:00 Completed [facility] HPV 2012-02-08 00:00:00 Completed [facility] HPV 2012-02-08 00:00:00 Completed [facility] HPV 2012-02-08 00:00:00 Completed [facility] HPV 2012-02-08 00:00:00 Completed [facility] HPV 2012-02-08 00:00:00 Completed [facility] HPV 2012-02-08 00:00:00 Completed HPV 2012-02-08 00:00:00 Completed HPV 2011-10-31 00:00:00 Completed [facility] HPV 2011-10-31 00:00:00 Completed [facility] HPV 2011-10-31 00:00:00 Completed [facility] HPV 2011-10-31 00:00:00 Completed [facility] HPV 2011-10-31 00:00:00 Completed [facility] HPV 2011-10-31 00:00:00 Completed [facility] HPV 2011-10-31 00:00:[address] [facility] HPV 2011-10-31 00:00:00 Completed [facility] HPV 2011-10-31 00:00:00 Completed [facility] HPV 2011-10-31 00:00:00 Completed [facility] HPV 2011-10-31 00:00:00 Completed [facility] HPV 2011-10-31 00:00:00 Completed [facility] HPV 2011-10-31 00:00:00 Completed [facility] HPV 2011-10-31 00:00:00 Completed [facility] HPV 2011-10-31 00:00:00 Completed [facility] HPV 2011-10-31 00:00:00 Completed [facility] HPV 2011-10-31 00:00:00 Completed [facility] HPV 2011-10-31 00:00:00 Completed [facility] HPV 2011-10-31 00:00:00 Completed HPV 2011-10-31 00:00:00 Completed HPV 2011-07-13 00:00:00 Completed [facility] HPV 2011-07-13 00:00:00 Completed [facility] HPV 2011-07-13 00:00:00 Completed [facility] HPV 2011-07-13 00:00:00 Completed [facility] HPV 2011-07-13 00:00:00 Completed [facility] HPV 2011-07-13 00:00:[address] [facility] HPV 2011-07-13 00:00:00 Completed [facility] HPV 2011-07-13 00:00:00 Completed [facility] HPV 2011-07-13 00:00:[address] [facility] HPV 2011-07-13 00:00:00 Completed [facility] HPV 2011-07-13 00:00:00 Completed [facility] HPV 2011-07-13 00:00:00 Completed [facility] HPV 2011-07-13 00:00:[address] [facility] HPV 2011-07-13 00:00:00 Completed [facility] HPV 2011-07-13 00:00:00 Completed [facility] HPV 2011-07-13 00:00:00 Completed [facility] HPV 2011-07-13 00:00:00 Completed [facility] HPV 2011-07-13 00:00:00 Completed [facility] HPV 2011-07-13 00:00:00 Completed HPV 2011-07-13 00:00:00 Completed Meningococcal Polysaccharide (groups A, C, Y and W-135) conjugate vaccine (MCV4P) 2010-12-28 00:00:00 Completed [facility] TDAP 2010-12-28 00:00:00 Completed [facility] Varicella (varivax)(chicken pox) 2010-12-28 00:00:00 Completed [facility] Meningococcal Polysaccharide (groups A, C, Y and W-135) conjugate vaccine (MCV4P) 2010-12-28 00:00:00 Completed [facility] TDAP 2010-12-28 00:00:00 Completed [facility] Varicella (varivax)(chicken pox) 2010-12-28 00:00:00 Completed [facility] Meningococcal Polysaccharide (groups A, C, Y and W-135) conjugate vaccine (MCV4P) 2010-12-28 00:00:00 Completed [facility] TDAP 2010-12-28 00:00:00 Completed [facility] Varicella (varivax)(chicken pox) 2010-12-28 00:00:00 Completed [facility] Meningococcal Polysaccharide (groups A, C, Y and W-135) conjugate vaccine (MCV4P) 2010-12-28 00:00:00 Completed [facility] TDAP 2010-12-28 00:00:00 Completed [facility] Varicella (varivax)(chicken pox) 2010-12-28 00:00:00 Completed [facility] Meningococcal Polysaccharide (groups A, C, Y and W-135) conjugate vaccine (MCV4P) 2010-12-28 00:00:00 Completed [facility] TDAP 2010-12-28 00:00:00 Completed [facility] Varicella (varivax)(chicken pox) 2010-12-28 00:00:00 Completed [facility] Meningococcal Polysaccharide (groups A, C, Y and W-135) conjugate vaccine (MCV4P) 2010-12-28 00:00:00 Completed [facility] TDAP 2010-12-28 00:00:00 Completed [facility] Varicella (varivax)(chicken pox) 2010-12-28 00:00:00 Completed [facility] Meningococcal Polysaccharide (groups A, C, Y and W-135) conjugate vaccine (MCV4P) 2010-12-28 00:00:00 Completed [facility] TDAP 2010-12-28 00:00:00 Completed [facility] Varicella (varivax)(chicken pox) 2010-12-28 00:00:00 Completed [facility] Meningococcal Polysaccharide (groups A, C, Y and W-135) conjugate vaccine (MCV4P) 2010-12-28 00:00:00 Completed [facility] TDAP 2010-12-28 00:00:00 Completed [facility] Varicella (varivax)(chicken pox) 2010-12-28 00:00:00 Completed [facility] Meningococcal Polysaccharide (groups A, C, Y and W-135) conjugate vaccine (MCV4P) 2010-12-28 00:[facility] Varicella (varivax)(chicken pox) 2010-12-28 00:00:00 Completed [facility] Meningococcal Polysaccharide (groups A, C, Y and W-135) conjugate vaccine (MCV4P) 2010-12-28 00:00:00 Completed [facility] TDAP 2010-12-28 00:00:00 Completed [facility] Varicella (varivax)(chicken pox) 2010-12-28 00:00:00 Completed [facility] Meningococcal Polysaccharide (groups A, C, Y and W-135) conjugate vaccine (MCV4P) 2010-12-28 00:00:00 Completed [facility] TDAP 2010-12-28 00:00:00 Completed [facility] Varicella (varivax)(chicken pox) 2010-12-28 00:00:00 Completed [facility] Meningococcal Polysaccharide (groups A, C, Y and W-135) conjugate vaccine (MCV4P) 2010-12-28 00:00:00 Completed [facility] TDAP 2010-12-28 00:00:00 Completed [facility] Varicella (varivax)(chicken pox) 2010-12-28 00:00:00 Completed [facility] Meningococcal Polysaccharide (groups A, C, Y and W-135) conjugate vaccine (MCV4P) 2010-12-28 00:00:00 Completed [facility] TDAP 2010-12-28 00:00:00 Completed [facility] Varicella (varivax)(chicken pox) 2010-12-28 00:00:00 Completed [facility] Meningococcal Polysaccharide (groups A, C, Y and W-135) conjugate vaccine (MCV4P) 2010-12-28 00:00:00 Completed [facility] TDAP 2010-12-28 00:00:00 Completed [facility] Varicella (varivax)(chicken pox) 2010-12-28 00:00:00 Completed [facility] Meningococcal Polysaccharide (groups A, C, Y and W-135) conjugate vaccine (MCV4P) 2010-12-28 00:00:00 Completed [facility] TDAP 2010-12-28 00:00:00 Completed [facility] Varicella (varivax)(chicken pox) 2010-12-28 00:00:00 Completed [facility] Meningococcal Polysaccharide (groups A, C, Y and W-135) conjugate vaccine (MCV4P) 2010-12-28 00:00:00 Completed [facility] TDAP 2010-12-28 00:00:00 Completed [facility] Varicella (varivax)(chicken pox) 2010-12-28 00:00:00 Completed [facility] Meningococcal Polysaccharide (groups A, C, Y and W-135) conjugate vaccine (MCV4P) 2010-12-28 00:00:00 Completed [facility] TDAP 2010-12-28 00:00:00 Completed [facility] Varicella (varivax)(chicken pox) 2010-12-28 00:00:00 Completed [facility] Meningococcal Polysaccharide (groups A, C, Y and W-135) conjugate vaccine (MCV4P) 2010-12-28 00:00:00 Completed [facility] TDAP 2010-12-28 00:00:00 Completed [facility] Varicella (varivax)(chicken pox) 2010-12-28 00:00:00 Completed [facility] Meningococcal Polysaccharide (groups A, C, Y and W-135) conjugate vaccine (MCV4P) 2010-12-28 00:00:00 Completed TDAP 2010-12-28 00:00:00 Completed Varicella (varivax)(chicken pox) 2010-12-28 00:00:00 Completed Meningococcal Polysaccharide (groups A, C, Y and W-135) conjugate vaccine (MCV4P) 2010-12-28 00:00:00 Completed TDAP 2010-12-28 00:00:00 Completed Varicella (varivax)(chicken pox) 2010-12-28 00:00:00 Completed DTAP 2002-06-30 00:00:00 Completed [facility] MMR 2002-06-30 00:00:00 Completed [facility] Polio (IPV/OPV) 2002-06-30 00:00:00 Completed [facility] DTAP 2002-06-30 00:00:00 Completed [facility] MMR 2002-06-30 00:00:00 Completed [facility] Polio (IPV/OPV) 2002-06-30 00:00:00 Completed [facility] DTAP 2002-06-30 00:00:00 Completed [facility] MMR 2002-06-30 00:00:00 Completed [facility] Polio (IPV/OPV) 2002-06-30 00:00:00 Completed [facility] DTAP 2002-06-30 00:00:00 Completed [facility] MMR 2002-06-30 00:00:00 Completed [facility] Polio (IPV/OPV) 2002-06-30 00:00:00 Completed [facility] DTAP 2002-06-30 00:00:00 Completed [facility] MMR 2002-06-30 00:00:00 Completed [facility] Polio (IPV/OPV) 2002-06-30 00:00:00 Completed [facility] DTAP 2002-06-30 00:00:00 Completed [facility] MMR 2002-06-30 00:00:00 Completed [facility] Polio (IPV/OPV) 2002-06-30 00:00:00 Completed [facility] DTAP 2002-06-30 00:00:00 Completed [facility] MMR 2002-06-30 00:00:00 Completed [facility] Polio (IPV/OPV) 2002-06-30 00:00:00 Completed [facility] DTAP 2002-06-30 00:00:00 Completed [facility] MMR 2002-06-30 00:00:00 Completed [facility] Polio (IPV/OPV) 2002-06-30 00:00:00 Completed [facility] DTAP 2002-06-30 00:00:00 Completed [facility] MMR 2002-06-30 00:00:00 Completed [facility] Polio (IPV/OPV) 2002-06-30 00:00:00 Completed [facility] DTAP 2002-06-30 00:00:00 Completed [facility] MMR 2002-06-30 00:00:00 Completed [facility] Polio (IPV/OPV) 2002-06-30 00:00:00 Completed [facility] DTAP 2002-06-30 00:00:00 Completed [facility] MMR 2002-06-30 00:00:00 Completed [facility] Polio (IPV/OPV) 2002-06-30 00:00:00 Completed [facility] DTAP 2002-06-30 00:00:00 Completed [facility] MMR 2002-06-30 00:00:00 Completed [facility] Polio (IPV/OPV) 2002-06-30 00:00:00 Completed [facility] DTAP 2002-06-30 00:00:00 Completed [facility] MMR 2002-06-30 00:00:00 Completed [facility] Polio (IPV/OPV) 2002-06-30 00:00:00 Completed [facility] DTAP 2002-06-30 00:00:00 Completed [facility] MMR 2002-06-30 00:00:00 Completed [facility] Polio (IPV/OPV) 2002-06-30 00:00:00 Completed [facility] DTAP 2002-06-30 00:00:00 Completed [facility] MMR 2002-06-30 00:00:00 Completed [facility] Polio (IPV/OPV) 2002-06-30 00:00:00 Completed [facility] DTAP 2002-06-30 00:00:00 Completed [facility] MMR 2002-06-30 00:00:00 Completed [facility] Polio (IPV/OPV) 2002-06-30 00:00:00 Completed [facility] DTAP 2002-06-30 00:00:00 Completed [facility] MMR 2002-06-30 00:00:00 Completed [facility] Polio (IPV/OPV) 2002-06-30 00:00:00 Completed [facility] DTAP 2002-06-30 00:00:00 Completed [facility] MMR 2002-06-30 00:00:00 Completed [facility] Polio (IPV/OPV) 2002-06-30 00:00:00 Completed [facility] DTAP 2002-06-30 00:00:00 Completed MMR 2002-06-30 00:00:00 Completed Polio (IPV/OPV) 2002-06-30 00:00:00 Completed DTAP 2002-06-30 00:00:00 Completed MMR 2002-06-30 00:00:00 Completed Polio (IPV/OPV) 2002-06-30 00:00:00 Completed HEPATITIS A 2001-01-17 00:00:00 Completed [facility] Pneumococcal 7 Conjugate, PCV7 (Prevnar7) 2001-01-17 00:00:00 Completed [facility] HEPATITIS A 2001-01-17 00:00:00 Completed [facility] Pneumococcal 7 Conjugate, PCV7 (Prevnar7) 2001-01-17 00:00:00 Completed [facility] HEPATITIS A 2001-01-17 00:00:00 Completed [facility] Pneumococcal 7 Conjugate, PCV7 (Prevnar7) 2001-01-17 00:00:00 Completed [facility] HEPATITIS A 2001-01-17 00:00:00 Completed [facility] Pneumococcal 7 Conjugate, PCV7 (Prevnar7) 2001-01-17 00:00:00 Completed [facility] HEPATITIS A 2001-01-17 00:00:00 Completed [facility] Pneumococcal 7 Conjugate, PCV7 (Prevnar7) 2001-01-17 00:00:00 Completed [facility] HEPATITIS A 2001-01-17 00:00:00 Completed [facility] Pneumococcal 7 Conjugate, PCV7 (Prevnar7) 2001-01-17 00:00:00 Completed [facility] HEPATITIS A 2001-01-17 00:00:00 Completed [facility] Pneumococcal 7 Conjugate, PCV7 (Prevnar7) 2001-01-17 00:00:00 Completed [facility] HEPATITIS A 2001-01-17 00:00:00 Completed [facility] Pneumococcal 7 Conjugate, PCV7 (Prevnar7) 2001-01-17 00:00:00 Completed [facility] HEPATITIS A 2001-01-17 00:00:00 Completed [facility] Pneumococcal 7 Conjugate, PCV7 (Prevnar7) 2001-01-17 00:00:00 Completed [facility] HEPATITIS A 2001-01-17 00:00:00 Completed [facility] Pneumococcal 7 Conjugate, PCV7 (Prevnar7) 2001-01-17 00:00:00 Completed [facility] HEPATITIS A 2001-01-17 00:00:00 Completed [facility] Pneumococcal 7 Conjugate, PCV7 (Prevnar7) 2001-01-17 00:00:00 Completed [facility] HEPATITIS A 2001-01-17 00:00:00 Completed [facility] Pneumococcal 7 Conjugate, PCV7 (Prevnar7) 2001-01-17 00:00:00 Completed [facility] HEPATITIS A 2001-01-17 00:00:00 Completed [facility] Pneumococcal 7 Conjugate, PCV7 (Prevnar7) 2001-01-17 00:00:00 Completed [facility] HEPATITIS A 2001-01-17 00:00:00 Completed [facility] Pneumococcal 7 Conjugate, PCV7 (Prevnar7) 2001-01-17 00:00:00 Completed [facility] HEPATITIS A 2001-01-17 00:00:00 Completed [facility] Pneumococcal 7 Conjugate, PCV7 (Prevnar7) 2001-01-17 00:00:00 Completed [facility] HEPATITIS A 2001-01-17 00:00:00 Completed [facility] Pneumococcal 7 Conjugate, PCV7 (Prevnar7) 2001-01-17 00:00:00 Completed [facility] HEPATITIS A 2001-01-17 00:00:00 Completed [facility] Pneumococcal 7 Conjugate, PCV7 (Prevnar7) 2001-01-17 00:00:00 Completed [facility] HEPATITIS A 2001-01-17 00:00:00 Completed [facility] Pneumococcal 7 Conjugate, PCV7 (Prevnar7) 2001-01-17 00:00:00 Completed [facility] HEPATITIS A 2001-01-17 00:00:00 Completed Pneumococcal 7 Conjugate, PCV7 (Prevnar7) 2001-01-17 00:00:00 Completed HEPATITIS A 2001-01-17 00:00:00 Completed Pneumococcal 7 Conjugate, PCV7 (Prevnar7) 2001-01-17 00:00:00 Completed DTAP 1998-12-09 00:00:00 Completed [facility] HIB 4 Dose Schedule 1998-12-09 00:00:00 Completed [facility] Polio (IPV/OPV) 1998-12-09 00:00:00 Completed [facility] DTAP 1998-12-09 00:00:00 Completed [facility] HIB 4 Dose Schedule 1998-12-09 00:00:00 Completed [facility] Polio (IPV/OPV) 1998-12-09 00:00:00 Completed [facility] DTAP 1998-12-09 00:00:00 Completed [facility] HIB 4 Dose Schedule 1998-12-09 00:00:00 Completed [facility] Polio (IPV/OPV) 1998-12-09 00:00:00 Completed [facility] DTAP 1998-12-09 00:00:00 Completed [facility] HIB 4 Dose Schedule 1998-12-09 00:00:00 Completed [facility] Polio (IPV/OPV) 1998-12-09 00:00:00 Completed [facility] DTAP 1998-12-09 00:00:00 Completed [facility] HIB 4 Dose Schedule 1998-12-09 00:00:00 Completed [facility] Polio (IPV/OPV) 1998-12-09 00:00:00 Completed [facility] DTAP 1998-12-09 00:00:00 Completed [facility] HIB 4 Dose Schedule 1998-12-09 00:00:00 Completed [facility] Polio (IPV/OPV) 1998-12-09 00:00:00 Completed [facility] DTAP 1998-12-09 00:00:00 Completed [facility] HIB 4 Dose Schedule 1998-12-09 00:00:00 Completed [facility] Polio (IPV/OPV) 1998-12-09 00:00:00 Completed [facility] DTAP 1998-12-09 00:00:00 Completed [facility] HIB 4 Dose Schedule 1998-12-09 00:00:00 Completed [facility] Polio (IPV/OPV) 1998-12-09 00:00:00 Completed [facility] DTAP 1998-12-09 00:00:00 Completed [facility] HIB 4 Dose Schedule 1998-12-09 00:00:00 Completed [facility] Polio (IPV/OPV) 1998-12-09 00:00:00 Completed [facility] DTAP 1998-12-09 00:00:00 Completed [facility] HIB 4 Dose Schedule 1998-12-09 00:00:00 Completed [facility] Polio (IPV/OPV) 1998-12-09 00:00:00 Completed [facility] DTAP 1998-12-09 00:00:00 Completed [facility] HIB 4 Dose Schedule 1998-12-09 00:00:00 Completed [facility] Polio (IPV/OPV) 1998-12-09 00:00:00 Completed [facility] DTAP 1998-12-09 00:00:00 Completed [facility] HIB 4 Dose Schedule 1998-12-09 00:00:00 Completed [facility] Polio (IPV/OPV) 1998-12-09 00:00:00 Completed [facility] DTAP 1998-12-09 00:00:00 Completed [facility] HIB 4 Dose Schedule 1998-12-09 00:00:00 Completed [facility] Polio (IPV/OPV) 1998-12-09 00:00:00 Completed [facility] DTAP 1998-12-09 00:00:00 Completed [facility] HIB 4 Dose Schedule 1998-12-09 00:00:00 Completed [facility] Polio (IPV/OPV) 1998-12-09 00:00:00 Completed [facility] DTAP 1998-12-09 00:00:00 Completed [facility] HIB 4 Dose Schedule 1998-12-09 00:00:00 Completed [facility] Polio (IPV/OPV) 1998-12-09 00:00:00 Completed [facility] DTAP 1998-12-09 00:00:00 Completed [facility] HIB 4 Dose Schedule 1998-12-09 00:00:00 Completed [facility] Polio (IPV/OPV) 1998-12-09 00:00:00 Completed [facility] DTAP 1998-12-09 00:00:00 Completed [facility] HIB 4 Dose Schedule 1998-12-09 00:00:00 Completed [facility] Polio (IPV/OPV) 1998-12-09 00:00:00 Completed [facility] DTAP 1998-12-09 00:00:00 Completed [facility] HIB 4 Dose Schedule 1998-12-09 00:00:00 Completed [facility] Polio (IPV/OPV) 1998-12-09 00:00:00 Completed [facility] DTAP 1998-12-09 00:00:00 Completed HIB 4 Dose Schedule 1998-12-09 00:00:00 Completed Polio (IPV/OPV) 1998-12-09 00:00:00 Completed DTAP 1998-12-09 00:00:00 Completed HIB 4 Dose Schedule 1998-12-09 00:00:00 Completed Polio (IPV/OPV) 1998-12-09 00:00:00 Completed MMR 1998-07-20 00:00:00 Completed [facility] Polio (IPV/OPV) 1998-07-20 00:00:00 Completed [facility] Varicella (varivax)(chicken pox) 1998-07-20 00:00:00 Completed [facility] MMR 1998-07-20 00:00:00 Completed [facility] Polio (IPV/OPV) 1998-07-20 00:00:00 Completed [facility] Varicella (varivax)(chicken pox) 1998-07-20 00:00:00 Completed [facility] MMR 1998-07-20 00:00:00 Completed [facility] Polio (IPV/OPV) 1998-07-20 00:00:00 Completed [facility] Varicella (varivax)(chicken pox) 1998-07-20 00:00:00 Completed [facility] MMR 1998-07-20 00:00:00 Completed [facility] Polio (IPV/OPV) 1998-07-20 00:00:00 Completed [facility] Varicella (varivax)(chicken pox) 1998-07-20 00:00:00 Completed [facility] MMR 1998-07-20 00:00:00 Completed [facility] Polio (IPV/OPV) 1998-07-20 00:00:00 Completed [facility] Varicella (varivax)(chicken pox) 1998-07-20 00:00:00 Completed [facility] MMR 1998-07-20 00:00:00 Completed [facility] Polio (IPV/OPV) 1998-07-20 00:00:00 Completed [facility] Varicella (varivax)(chicken pox) 1998-07-20 00:00:00 Completed [facility] MMR 1998-07-20 00:00:00 Completed [facility] Polio (IPV/OPV) 1998-07-20 00:00:00 Completed [facility] Varicella (varivax)(chicken pox) 1998-07-20 00:00:00 Completed [facility] MMR 1998-07-20 00:00:00 Completed [facility] Polio (IPV/OPV) 1998-07-20 00:00:00 Completed [facility] Varicella (varivax)(chicken pox) 1998-07-20 00:00:00 Completed [facility] MMR 1998-07-20 00:00:00 Completed [facility] Polio (IPV/OPV) 1998-07-20 00:00:00 Completed [facility] Varicella (varivax)(chicken pox) 1998-07-20 00:00:00 Completed [facility] MMR 1998-07-20 00:00:00 Completed [facility] Polio (IPV/OPV) 1998-07-20 00:00:00 Completed [facility] Varicella (varivax)(chicken pox) 1998-07-20 00:00:00 Completed [facility] MMR 1998-07-20 00:00:00 Completed [facility] Polio (IPV/OPV) 1998-07-20 00:00:00 Completed [facility] Varicella (varivax)(chicken pox) 1998-07-20 00:00:00 Completed [facility] MMR 1998-07-20 00:00:00 Completed [facility] Polio (IPV/OPV) 1998-07-20 00:00:00 Completed [facility] Varicella (varivax)(chicken pox) 1998-07-20 00:00:00 Completed [facility] MMR 1998-07-20 00:00:00 Completed [facility] Polio (IPV/OPV) 1998-07-20 00:00:00 Completed [facility] Varicella (varivax)(chicken pox) 1998-07-20 00:00:00 Completed [facility] MMR 1998-07-20 00:00:00 Completed [facility] Polio (IPV/OPV) 1998-07-20 00:00:00 Completed [facility] Varicella (varivax)(chicken pox) 1998-07-20 00:00:00 Completed [facility] MMR 1998-07-20 00:00:00 Completed [facility] Polio (IPV/OPV) 1998-07-20 00:00:00 Completed [facility] Varicella (varivax)(chicken pox) 1998-07-20 00:00:00 Completed [facility] MMR 1998-07-20 00:00:00 Completed [facility] Polio (IPV/OPV) 1998-07-20 00:00:00 Completed [facility] Varicella (varivax)(chicken pox) 1998-07-20 00:00:00 Completed [facility] MMR 1998-07-20 00:00:00 Completed [facility] Polio (IPV/OPV) 1998-07-20 00:00:00 Completed [facility] Varicella (varivax)(chicken pox) 1998-07-20 00:00:00 Completed [facility] MMR 1998-07-20 00:00:00 Completed [facility] Polio (IPV/OPV) 1998-07-20 00:00:00 Completed [facility] Varicella (varivax)(chicken pox) 1998-07-20 00:00:00 Completed [facility] MMR 1998-07-20 00:00:00 Completed Polio (IPV/OPV) 1998-07-20 00:00:00 Completed Varicella (varivax)(chicken pox) 1998-07-20 00:00:00 Completed MMR 1998-07-20 00:00:00 Completed Polio (IPV/OPV) 1998-07-20 00:00:00 Completed Varicella (varivax)(chicken pox) 1998-07-20 00:00:00 Completed DTAP 1998-05-20 00:00:00 Completed [facility] HIB 4 Dose Schedule 1998-05-20 00:00:00 Completed [facility] Hep B, Adol or Pedi Dosage 1998-05-20 00:00:00 Completed [facility] DTAP 1998-05-20 00:00:00 Completed [facility] HIB 4 Dose Schedule 1998-05-20 00:00:00 Completed [facility] Hep B, Adol or Pedi Dosage 1998-05-20 00:00:00 Completed [facility] DTAP 1998-05-20 00:00:00 Completed [facility] HIB 4 Dose Schedule 1998-05-20 00:00:00 Completed [facility] Hep B, Adol or Pedi Dosage 1998-05-20 00:00:00 Completed [facility] DTAP 1998-05-20 00:00:00 Completed [facility] HIB 4 Dose Schedule 1998-05-20 00:00:00 Completed [facility] Hep B, Adol or Pedi Dosage 1998-05-20 00:00:00 Completed [facility] DTAP 1998-05-20 00:00:00 Completed [facility] HIB 4 Dose Schedule 1998-05-20 00:00:00 Completed [facility] Hep B, Adol or Pedi Dosage 1998-05-20 00:00:00 Completed [facility] DTAP 1998-05-20 00:00:00 Completed [facility] HIB 4 Dose Schedule 1998-05-20 00:00:00 Completed [facility] Hep B, Adol or Pedi Dosage 1998-05-20 00:00:00 Completed [facility] DTAP 1998-05-20 00:00:00 Completed [facility] HIB 4 Dose Schedule 1998-05-20 00:00:00 Completed [facility] Hep B, Adol or Pedi Dosage 1998-05-20 00:00:00 Completed [facility] DTAP 1998-05-20 00:00:00 Completed [facility] HIB 4 Dose Schedule 1998-05-20 00:00:00 Completed [facility] Hep B, Adol or Pedi Dosage 1998-05-20 00:00:00 Completed [facility] DTAP 1998-05-20 00:00:00 Completed [facility] HIB 4 Dose Schedule 1998-05-20 00:00:00 Completed [facility] Hep B, Adol or Pedi Dosage 1998-05-20 00:00:00 Completed [facility] DTAP 1998-05-20 00:00:00 Completed [facility] HIB 4 Dose Schedule 1998-05-20 00:00:00 Completed [facility] Hep B, Adol or Pedi Dosage 1998-05-20 00:00:00 Completed [facility] DTAP 1998-05-20 00:00:00 Completed [facility] HIB 4 Dose Schedule 1998-05-20 00:00:00 Completed [facility] Hep B, Adol or Pedi Dosage 1998-05-20 00:00:00 Completed [facility] DTAP 1998-05-20 00:00:00 Completed [facility] HIB 4 Dose Schedule 1998-05-20 00:00:00 Completed [facility] Hep B, Adol or Pedi Dosage 1998-05-20 00:00:00 Completed [facility] DTAP 1998-05-20 00:00:00 Completed [facility] HIB 4 Dose Schedule 1998-05-20 00:00:00 Completed [facility] Hep B, Adol or Pedi Dosage 1998-05-20 00:00:00 Completed [facility] DTAP 1998-05-20 00:00:00 Completed [facility] HIB 4 Dose Schedule 1998-05-20 00:00:00 Completed [facility] Hep B, Adol or Pedi Dosage 1998-05-20 00:00:00 Completed [facility] DTAP 1998-05-20 00:00:00 Completed [facility] HIB 4 Dose Schedule 1998-05-20 00:00:00 Completed [facility] Hep B, Adol or Pedi Dosage 1998-05-20 00:00:00 Completed [facility] DTAP 1998-05-20 00:00:00 Completed [facility] HIB 4 Dose Schedule 1998-05-20 00:00:00 Completed [facility] Hep B, Adol or Pedi Dosage 1998-05-20 00:00:00 Completed [facility] DTAP 1998-05-20 00:00:00 Completed [facility] HIB 4 Dose Schedule 1998-05-20 00:00:00 Completed [facility] Hep B, Adol or Pedi Dosage 1998-05-20 00:00:00 Completed [facility] DTAP 1998-05-20 00:00:00 Completed [facility] HIB 4 Dose Schedule 1998-05-20 00:00:00 Completed [facility] Hep B, Adol or Pedi Dosage 1998-05-20 00:00:00 Completed [facility] DTAP 1998-05-20 00:00:00 Completed HIB 4 Dose Schedule 1998-05-20 00:00:00 Completed Hep B, Adol or Pedi Dosage 1998-05-20 00:00:00 Completed DTAP 1998-05-20 00:00:00 Completed HIB 4 Dose Schedule 1998-05-20 00:00:00 Completed Hep B, Adol or Pedi Dosage 1998-05-20 00:00:00 Completed DTAP 1998-03-23 00:00:00 Completed [facility] HIB 4 Dose Schedule 1998-03-23 00:00:00 Completed [facility] Hep B, Adol or Pedi Dosage 1998-03-23 00:00:00 Completed [facility] Polio (IPV/OPV) 1998-03-23 00:00:00 Completed [facility] DTAP 1998-03-23 00:00:00 Completed [facility] HIB 4 Dose Schedule 1998-03-23 00:00:00 Completed [facility] Hep B, Adol or Pedi Dosage 1998-03-23 00:00:00 Completed [facility] Polio (IPV/OPV) 1998-03-23 00:00:00 Completed [facility] DTAP 1998-03-23 00:00:00 Completed [facility] HIB 4 Dose Schedule 1998-03-23 00:00:00 Completed [facility] Hep B, Adol or Pedi Dosage 1998-03-23 00:00:00 Completed [facility] Polio (IPV/OPV) 1998-03-23 00:00:00 Completed [facility] DTAP 1998-03-23 00:00:00 Completed [facility] HIB 4 Dose Schedule 1998-03-23 00:00:00 Completed [facility] Hep B, Adol or Pedi Dosage 1998-03-23 00:00:00 Completed [facility] Polio (IPV/OPV) 1998-03-23 00:00:00 Completed [facility] DTAP 1998-03-23 00:00:00 Completed [facility] HIB 4 Dose Schedule 1998-03-23 00:00:00 Completed [facility] Hep B, Adol or Pedi Dosage 1998-03-23 00:00:00 Completed [facility] Polio (IPV/OPV) 1998-03-23 00:00:00 Completed [facility] DTAP 1998-03-23 00:00:00 Completed [facility] HIB 4 Dose Schedule 1998-03-23 00:00:00 Completed [facility] Hep B, Adol or Pedi Dosage 1998-03-23 00:00:00 Completed [facility] Polio (IPV/OPV) 1998-03-23 00:00:00 Completed [facility] DTAP 1998-03-23 00:00:00 Completed [facility] HIB 4 Dose Schedule 1998-03-23 00:00:00 Completed [facility] Hep B, Adol or Pedi Dosage 1998-03-23 00:00:00 Completed [facility] Polio (IPV/OPV) 1998-03-23 00:00:00 Completed [facility] DTAP 1998-03-23 00:00:00 Completed [facility] HIB 4 Dose Schedule 1998-03-23 00:00:00 Completed [facility] Hep B, Adol or Pedi Dosage 1998-03-23 00:00:00 Completed [facility] Polio (IPV/OPV) 1998-03-23 00:00:00 Completed [facility] DTAP 1998-03-23 00:00:00 Completed [facility] HIB 4 Dose Schedule 1998-03-23 00:00:00 Completed [facility] Hep B, Adol or Pedi Dosage 1998-03-23 00:00:00 Completed [facility] Polio (IPV/OPV) 1998-03-23 00:00:00 Completed [facility] DTAP 1998-03-23 00:00:00 Completed [facility] HIB 4 Dose Schedule 1998-03-23 00:00:00 Completed [facility] Hep B, Adol or Pedi Dosage 1998-03-23 00:00:00 Completed [facility] Polio (IPV/OPV) 1998-03-23 00:00:00 Completed [facility] DTAP 1998-03-23 00:00:00 Completed [facility] HIB 4 Dose Schedule 1998-03-23 00:00:00 Completed [facility] Hep B, Adol or Pedi Dosage 1998-03-23 00:00:00 Completed [facility] Polio (IPV/OPV) 1998-03-23 00:00:00 Completed [facility] DTAP 1998-03-23 00:00:00 Completed [facility] HIB 4 Dose Schedule 1998-03-23 00:00:00 Completed [facility] Hep B, Adol or Pedi Dosage 1998-03-23 00:00:00 Completed [facility] Polio (IPV/OPV) 1998-03-23 00:00:00 Completed [facility] DTAP 1998-03-23 00:00:00 Completed [facility] HIB 4 Dose Schedule 1998-03-23 00:00:00 Completed [facility] Hep B, Adol or Pedi Dosage 1998-03-23 00:00:00 Completed [facility] Polio (IPV/OPV) 1998-03-23 00:00:00 Completed [facility] DTAP 1998-03-23 00:00:00 Completed [facility] HIB 4 Dose Schedule 1998-03-23 00:00:00 Completed [facility] Hep B, Adol or Pedi Dosage 1998-03-23 00:00:00 Completed [facility] Polio (IPV/OPV) 1998-03-23 00:00:00 Completed [facility] DTAP 1998-03-23 00:00:00 Completed [facility] HIB 4 Dose Schedule 1998-03-23 00:00:00 Completed [facility] Hep B, Adol or Pedi Dosage 1998-03-23 00:00:00 Completed [facility] Polio (IPV/OPV) 1998-03-23 00:00:00 Completed [facility] DTAP 1998-03-23 00:00:00 Completed [facility] HIB 4 Dose Schedule 1998-03-23 00:00:00 Completed [facility] Hep B, Adol or Pedi Dosage 1998-03-23 00:00:00 Completed [facility] Polio (IPV/OPV) 1998-03-23 00:00:00 Completed [facility] DTAP 1998-03-23 00:00:00 Completed [facility] HIB 4 Dose Schedule 1998-03-23 00:00:00 Completed [facility] Hep B, Adol or Pedi Dosage 1998-03-23 00:00:00 Completed [facility] Polio (IPV/OPV) 1998-03-23 00:00:00 Completed [facility] DTAP 1998-03-23 00:00:00 Completed [facility] HIB 4 Dose Schedule 1998-03-23 00:00:00 Completed [facility] Hep B, Adol or Pedi Dosage 1998-03-23 00:00:00 Completed [facility] Polio (IPV/OPV) 1998-03-23 00:00:00 Completed [facility] DTAP 1998-03-23 00:00:00 Completed HIB 4 Dose Schedule 1998-03-23 00:00:00 Completed Hep B, Adol or Pedi Dosage 1998-03-23 00:00:00 Completed Polio (IPV/OPV) 1998-03-23 00:00:00 Completed DTAP 1998-03-23 00:00:00 Completed HIB 4 Dose Schedule 1998-03-23 00:00:00 Completed Hep B, Adol or Pedi Dosage 1998-03-23 00:00:00 Completed Polio (IPV/OPV) 1998-03-23 00:00:00 Completed DTAP 1997 00:00:00 Completed [facility] HIB 4 Dose Schedule 1997 00:00:00 Completed [facility] Hep B, Adol or Pedi Dosage 1997 00:00:00 Completed [facility] Polio (IPV/OPV) 1997 00:00:00 Completed [facility] DTAP 1997 00:00:00 Completed [facility] HIB 4 Dose Schedule 1997 00:00:00 Completed [facility] Hep B, Adol or Pedi Dosage 1997 00:00:00 Completed [facility] Polio (IPV/OPV) 1997 00:00:00 Completed [facility] DTAP 1997 00:00:00 Completed [facility] HIB 4 Dose Schedule 1997 00:00:00 Completed [facility] Hep B, Adol or Pedi Dosage 1997 00:00:00 Completed [facility] Polio (IPV/OPV) 1997 00:00:00 Completed [facility] DTAP 1997 00:00:00 Completed [facility] HIB 4 Dose Schedule 1997 00:00:00 Completed [facility] Hep B, Adol or Pedi Dosage 1997 00:00:00 Completed [facility] Polio (IPV/OPV) 1997 00:00:00 Completed [facility] DTAP 1997 00:00:00 Completed [facility] HIB 4 Dose Schedule 1997 00:00:00 Completed [facility] Hep B, Adol or Pedi Dosage 1997 00:00:00 Completed [facility] Polio (IPV/OPV) 1997 00:00:00 Completed [facility] DTAP 1997 00:00:00 Completed [facility] HIB 4 Dose Schedule 1997 00:00:00 Completed [facility] Hep B, Adol or Pedi Dosage 1997 00:00:00 Completed [facility] Polio (IPV/OPV) 1997 00:00:00 Completed [facility] DTAP 1997 00:00:00 Completed [facility] HIB 4 Dose Schedule 1997 00:00:00 Completed [facility] Hep B, Adol or Pedi Dosage 1997 00:00:00 Completed [facility] Polio (IPV/OPV) 1997 00:00:00 Completed [facility] DTAP 1997 00:00:00 Completed [facility] HIB 4 Dose Schedule 1997 00:00:00 Completed [facility] Hep B, Adol or Pedi Dosage 1997 00:00:00 Completed [facility] Polio (IPV/OPV) 1997 00:00:00 Completed [facility] DTAP 1997 00:00:00 Completed [facility] HIB 4 Dose Schedule 1997 00:00:00 Completed [facility] Hep B, Adol or Pedi Dosage 1997 00:00:00 Completed [facility] Polio (IPV/OPV) 1997 00:00:00 Completed [facility] DTAP 1997 00:00:00 Completed [facility] HIB 4 Dose Schedule 1997 00:00:00 Completed [facility] Hep B, Adol or Pedi Dosage 1997 00:00:00 Completed [facility] Polio (IPV/OPV) 1997 00:00:00 Completed [facility] DTAP 1997 00:00:00 Completed [facility] HIB 4 Dose Schedule 1997 00:00:00 Completed [facility] Hep B, Adol or Pedi Dosage 1997 00:00:00 Completed [facility] Polio (IPV/OPV) 1997 00:00:00 Completed [facility] DTAP 1997 00:00:00 Completed [facility] HIB 4 Dose Schedule 1997 00:00:00 Completed [facility] Hep B, Adol or Pedi Dosage 1997 00:00:00 Completed [facility] Polio (IPV/OPV) 1997 00:00:00 Completed [facility] DTAP 1997 00:00:00 Completed [facility] HIB 4 Dose Schedule 1997 00:00:00 Completed [facility] Hep B, Adol or Pedi Dosage 1997 00:00:00 Completed [facility] Polio (IPV/OPV) 1997 00:00:00 Completed [facility] DTAP 1997 00:00:00 Completed [facility] HIB 4 Dose Schedule 1997 00:00:00 Completed [facility] Hep B, Adol or Pedi Dosage 1997 00:00:00 Completed [facility] Polio (IPV/OPV) 1997 00:00:00 Completed [facility] DTAP 1997 00:00:00 Completed [facility] HIB 4 Dose Schedule 1997 00:00:00 Completed [facility] Hep B, Adol or Pedi Dosage 1997 00:00:00 Completed [facility] Polio (IPV/OPV) 1997 00:00:00 Completed [facility] DTAP 1997 00:00:00 Completed [facility] HIB 4 Dose Schedule 1997 00:00:00 Completed [facility] Hep B, Adol or Pedi Dosage 1997 00:00:00 Completed [facility] Polio (IPV/OPV) 1997 00:00:00 Completed [facility] DTAP 1997 00:00:00 Completed [facility] HIB 4 Dose Schedule 1997 00:00:00 Completed [facility] Hep B, Adol or Pedi Dosage 1997 00:00:00 Completed [facility] Polio (IPV/OPV) 1997 00:00:00 Completed [facility] DTAP 1997 00:00:00 Completed [facility] [facility] 4 Dose Schedule 1997 00:00:00 Completed [facility] Hep B, Adol or Pedi Dosage 1997 00:00:00 Completed [facility] Polio (IPV/OPV) 1997 00:00:00 Completed [facility] DTAP 1997 00:00:00 Completed [facility] HIB 4 Dose Schedule 1997 00:00:00 Completed Hep B, Adol or Pedi Dosage 1997 00:00:00 Completed Polio (IPV/OPV) 1997 00:00:00 Completed DTAP 1997 00:00:00 Completed [facility] HIB 4 Dose Schedule 1997 00:00:00 Completed Hep B, Adol or Pedi Dosage 1997 00:00:00 Completed Polio (IPV/OPV) 1997 00:00:00 Completed Influenza Virus Vaccine Quad .5 mL IM 6+ MO (FLUZONE/FLULAVAL/FL UARIX) Unknown Completed [facility] TDAP Unknown Completed [facility] DTAP Unknown Completed [facility] HIB 4 Dose Schedule Unknown Completed [facility] HEPATITIS A Unknown Completed [facility] Hep B, Adol or Pedi Dosage Unknown Completed [facility] HPV Unknown Completed [facility] Meningococcal Polysaccharide (groups A, C, Y and W-135) conjugate vaccine (MCV4P) Unknown Completed [facility] MMR Unknown Completed [facility] Polio (IPV/OPV) Unknown Completed [facility] Varicella (varivax)(chicken pox) Unknown Completed [facility] Pneumococcal 7 Conjugate, PCV7 (Prevnar7) Unknown Completed [facility] Influenza Virus Vaccine Quad .5 mL IM 6+ MO (FLUZONE/FLULAVAL/FL UARIX) Unknown Completed [facility] TDAP Unknown Completed [facility] DTAP Unknown Completed [facility] HIB 4 Dose Schedule Unknown Completed [facility] HEPATITIS A Unknown Completed [facility] Hep B, Adol or Pedi Dosage Unknown Completed [facility] HPV Unknown Completed [facility] Meningococcal Polysaccharide (groups A, C, Y and W-135) conjugate vaccine (MCV4P) Unknown Completed [facility] MMR Unknown Completed [facility] Polio (IPV/OPV) Unknown Completed [facility] Varicella (varivax)(chicken pox) Unknown Completed [facility] Pneumococcal 7 Conjugate, PCV7 (Prevnar7) Unknown Completed [facility] Influenza Virus Vaccine Quad .5 mL IM 6+ MO (FLUZONE/FLULAVAL/FL UARIX) Unknown Completed [facility] TDAP Unknown Completed [facility] DTAP Unknown Completed [facility] HIB 4 Dose Schedule Unknown Completed [facility] HEPATITIS A Unknown Completed [facility] Hep B, Adol or Pedi Dosage Unknown Completed [facility] HPV Unknown Completed [facility] Meningococcal Polysaccharide (groups A, C, Y and W-135) conjugate vaccine (MCV4P) Unknown Completed [facility] MMR Unknown Completed [facility] Polio (IPV/OPV) Unknown Completed [facility] Varicella (varivax)(chicken pox) Unknown Completed [facility] Pneumococcal 7 Conjugate, PCV7 (Prevnar7) Unknown Completed [facility] Influenza Virus Vaccine Quad .5 mL IM 6+ MO (FLUZONE/FLULAVAL/FL UARIX) Unknown Completed [facility] TDAP Unknown Completed [facility] DTAP Unknown Completed [facility] HIB 4 Dose Schedule Unknown Completed [facility] HEPATITIS A Unknown Completed [facility] Hep B, Adol or Pedi Dosage Unknown Completed [facility] HPV Unknown Completed [facility] Meningococcal Polysaccharide (groups A, C, Y and W-135) conjugate vaccine (MCV4P) Unknown Completed [facility] MMR Unknown Completed [facility] Polio (IPV/OPV) Unknown Completed [facility] Varicella (varivax)(chicken pox) Unknown Completed [facility] Pneumococcal 7 Conjugate, PCV7 (Prevnar7) Unknown Completed [facility] Influenza Virus Vaccine Quad .5 mL IM 6+ MO (FLUZONE/FLULAVAL/FL UARIX) Unknown Completed [facility] TDAP Unknown Completed [facility] DTAP Unknown Completed [facility] HIB 4 Dose Schedule Unknown Completed [facility] HEPATITIS A Unknown Completed [facility] Hep B, Adol or Pedi Dosage Unknown Completed [facility] HPV Unknown Completed [facility] Meningococcal Polysaccharide (groups A, C, Y and W-135) conjugate vaccine (MCV4P) Unknown Completed [facility] MMR Unknown Completed [facility] Polio (IPV/OPV) Unknown Completed [facility] Varicella (varivax)(chicken pox) Unknown Completed [facility] Pneumococcal 7 Conjugate, PCV7 (Prevnar7) Unknown Completed [facility] Influenza Virus Vaccine Quad .5 mL IM 6+ MO (FLUZONE/FLULAVAL/FL UARIX) Unknown Completed [facility] TDAP Unknown Completed [facility] DTAP Unknown Completed [facility] HIB 4 Dose Schedule Unknown Completed [facility] HEPATITIS A Unknown Completed [facility] Hep B, Adol or Pedi Dosage Unknown Completed [facility] HPV Unknown Completed [facility] Meningococcal Polysaccharide (groups A, C, Y and W-135) conjugate vaccine (MCV4P) Unknown Completed [facility] MMR Unknown Completed [facility] Polio (IPV/OPV) Unknown Completed [facility] Varicella (varivax)(chicken pox) Unknown Completed [facility] Pneumococcal 7 Conjugate, PCV7 (Prevnar7) Unknown Completed [facility] Influenza Virus Vaccine Quad .5 mL IM 6+ MO (FLUZONE/FLULAVAL/FL UARIX) Unknown Completed [facility] TDAP Unknown Completed [facility] DTAP Unknown Completed [facility] HIB 4 Dose Schedule Unknown Completed [facility] HEPATITIS A Unknown Completed [facility] Hep B, Adol or Pedi Dosage Unknown Completed [facility] HPV Unknown Completed [facility] Meningococcal Polysaccharide (groups A, C, Y and W-135) conjugate vaccine (MCV4P) Unknown Completed [facility] MMR Unknown Completed [facility] Polio (IPV/OPV) Unknown Completed [facility] Varicella (varivax)(chicken pox) Unknown Completed [facility] Pneumococcal 7 Conjugate, PCV7 (Prevnar7) Unknown Completed [facility] Influenza Virus Vaccine Quad .5 mL IM 6+ MO (FLUZONE/FLULAVAL/FL UARIX) Unknown Completed [facility] TDAP Unknown Completed [facility] DTAP Unknown Completed [facility] HIB 4 Dose Schedule Unknown Completed [facility] HEPATITIS A Unknown Completed [facility] Hep B, Adol or Pedi Dosage Unknown Completed [facility] HPV Unknown Completed [facility] Meningococcal Polysaccharide (groups A, C, Y and W-135) conjugate vaccine (MCV4P) Unknown Completed [facility] MMR Unknown Completed [facility] Polio (IPV/OPV) Unknown Completed [facility] Varicella (varivax)(chicken pox) Unknown Completed [facility] Pneumococcal 7 Conjugate, PCV7 (Prevnar7) Unknown Completed [facility] Influenza Virus Vaccine Quad .5 mL IM 6+ MO (FLUZONE/FLULAVAL/FL UARIX) Unknown Completed [facility] TDAP Unknown Completed [facility] DTAP Unknown Completed [facility] HIB 4 Dose Schedule Unknown Completed [facility] HEPATITIS A Unknown Completed [facility] Hep B, Adol or Pedi Dosage Unknown Completed [facility] HPV Unknown Completed [facility] Meningococcal Polysaccharide (groups A, C, Y and W-135) conjugate vaccine (MCV4P) Unknown Completed [facility] MMR Unknown Completed [facility] Polio (IPV/OPV) Unknown Completed [facility] Varicella (varivax)(chicken pox) Unknown Completed [facility] Pneumococcal 7 Conjugate, PCV7 (Prevnar7) Unknown Completed [facility] Influenza Virus Vaccine Quad IM, Preserv and ABX Free 6 MO-64 YRS (FLUCELVAX) Unknown Completed [facility] Influenza Virus Vaccine Quad .5 mL IM 6+ MO (FLUZONE/FLULAVAL/FL UARIX) Unknown Completed [facility] TDAP Unknown Completed [facility] DTAP Unknown Completed [facility] HIB 4 Dose Schedule Unknown Completed [facility] HEPATITIS A Unknown Completed [facility] Hep B, Adol or Pedi Dosage Unknown Completed [facility] HPV Unknown Completed [facility] Meningococcal Polysaccharide (groups A, C, Y and W-135) conjugate vaccine (MCV4P) Unknown Completed [facility] MMR Unknown Completed [facility] Polio (IPV/OPV) Unknown Completed [facility] Varicella (varivax)(chicken pox) Unknown Completed [facility] Pneumococcal 7 Conjugate, PCV7 (Prevnar7) Unknown Completed [facility] Influenza Virus Vaccine Quad IM, Preserv and ABX Free 6 MO-64 YRS (FLUCELVAX) Unknown Completed [facility] Influenza Virus Vaccine Quad .5 mL IM 6+ MO (FLUZONE/FLULAVAL/FL UARIX) Unknown Completed [facility] TDAP Unknown Completed [facility] DTAP Unknown Completed [facility] HIB 4 Dose Schedule Unknown Completed [facility] HEPATITIS A Unknown Completed [facility] Hep B, Adol or Pedi Dosage Unknown Completed [facility] HPV Unknown Completed [facility] Meningococcal Polysaccharide (groups A, C, Y and W-135) conjugate vaccine (MCV4P) Unknown Completed [facility] MMR Unknown Completed [facility] Polio (IPV/OPV) Unknown Completed [facility] Varicella (varivax)(chicken pox) Unknown Completed [facility] Pneumococcal 7 Conjugate, PCV7 (Prevnar7) Unknown Completed [facility] Influenza Virus Vaccine Quad IM, Preserv and ABX Free 6 MO-64 YRS (FLUCELVAX) Unknown Completed [facility] Influenza Virus Vaccine Quad .5 mL IM 6+ MO (FLUZONE/FLULAVAL/FL UARIX) Unknown Completed [facility] TDAP Unknown Completed [facility] DTAP Unknown Completed [facility] HIB 4 Dose Schedule Unknown Completed [facility] HEPATITIS A Unknown Completed [facility] Hep B, Adol or Pedi Dosage Unknown Completed [facility] HPV Unknown Completed [facility] Meningococcal Polysaccharide (groups A, C, Y and W-135) conjugate vaccine (MCV4P) Unknown Completed [facility] MMR Unknown Completed [facility] Polio (IPV/OPV) Unknown Completed [facility] Varicella (varivax)(chicken pox) Unknown Completed [facility] Pneumococcal 7 Conjugate, PCV7 (Prevnar7) Unknown Completed [facility] Influenza Virus Vaccine Quad IM, Preserv and ABX Free 6 MO-64 YRS (FLUCELVAX) Unknown Completed [facility] Influenza Virus Vaccine Quad .5 mL IM 6+ MO (FLUZONE/FLULAVAL/FL UARIX) Unknown Completed [facility] TDAP Unknown Completed [facility] DTAP Unknown Completed [facility] HIB 4 Dose Schedule Unknown Completed [facility] HEPATITIS A Unknown Completed [facility] Hep B, Adol or Pedi Dosage Unknown Completed [facility] HPV Unknown Completed [facility] Meningococcal Polysaccharide (groups A, C, Y and W-135) conjugate vaccine (MCV4P) Unknown Completed [facility] MMR Unknown Completed [facility] Polio (IPV/OPV) Unknown Completed [facility] Varicella (varivax)(chicken pox) Unknown Completed [facility] Pneumococcal 7 Conjugate, PCV7 (Prevnar7) Unknown Completed [facility] Influenza Virus Vaccine Quad IM, Preserv and ABX Free 6 MO-64 YRS (FLUCELVAX) Unknown Completed [facility] Influenza Virus Vaccine Quad .5 mL IM 6+ MO (FLUZONE/FLULAVAL/FL UARIX) Unknown Completed [facility] TDAP Unknown Completed [facility] DTAP Unknown Completed [facility] HIB 4 Dose Schedule Unknown Completed [facility] HEPATITIS A Unknown Completed [facility] Hep B, Adol or Pedi Dosage Unknown Completed [facility] HPV Unknown Completed [facility] Meningococcal Polysaccharide (groups A, C, Y and W-135) conjugate vaccine (MCV4P) Unknown Completed [facility] MMR Unknown Completed [facility] Polio (IPV/OPV) Unknown Completed [facility] Varicella (varivax)(chicken pox) Unknown Completed [facility] Pneumococcal 7 Conjugate, PCV7 (Prevnar7) Unknown Completed [facility] Influenza Virus Vaccine Quad IM, Preserv and ABX Free 6 MO-64 YRS (FLUCELVAX) Unknown Completed [facility] Influenza Virus Vaccine Quad .5 mL IM 6+ MO (FLUZONE/FLULAVAL/FL UARIX) Unknown Completed [facility] TDAP Unknown Completed [facility] DTAP Unknown Completed [facility] HIB 4 Dose Schedule Unknown Completed [facility] HEPATITIS A Unknown Completed [facility] Hep B, Adol or Pedi Dosage Unknown Completed [facility] HPV Unknown Completed [facility] Meningococcal Polysaccharide (groups A, C, Y and W-135) conjugate vaccine (MCV4P) Unknown Completed [facility] MMR Unknown Completed [facility] Polio (IPV/OPV) Unknown Completed [facility] Varicella (varivax)(chicken pox) Unknown Completed [facility] Pneumococcal 7 Conjugate, PCV7 (Prevnar7) Unknown Completed [facility] Influenza Virus Vaccine Quad IM, Preserv and ABX Free 6 MO-64 YRS (FLUCELVAX) Unknown Completed [facility] Influenza Virus Vaccine Quad .5 mL IM 6+ MO (FLUZONE/FLULAVAL/FL UARIX) Unknown Completed [facility] TDAP Unknown Completed [facility] DTAP Unknown Completed [facility] HIB 4 Dose Schedule Unknown Completed [facility] HEPATITIS A Unknown Completed [facility] Hep B, Adol or Pedi Dosage Unknown Completed [facility] HPV Unknown Completed [facility] Meningococcal Polysaccharide (groups A, C, Y and W-135) conjugate vaccine (MCV4P) Unknown Completed [facility] MMR Unknown Completed [facility] Polio (IPV/OPV) Unknown Completed [facility] Varicella (varivax)(chicken pox) Unknown Completed [facility] Pneumococcal 7 Conjugate, PCV7 (Prevnar7) Unknown Completed [facility] Influenza Virus Vaccine Quad IM, Preserv and ABX Free 6 MO-64 YRS (FLUCELVAX) Unknown Completed [facility] Influenza Virus Vaccine Quad .5 mL IM 6+ MO (FLUZONE/FLULAVAL/FL UARIX) Unknown Completed [facility] TDAP Unknown Completed [facility] DTAP Unknown Completed [facility] HIB 4 Dose Schedule Unknown Completed [facility] HEPATITIS A Unknown Completed [facility] Hep B, Adol or Pedi Dosage Unknown Completed [facility] HPV Unknown Completed [facility] Meningococcal Polysaccharide (groups A, C, Y and W-135) conjugate vaccine (MCV4P) Unknown Completed [facility] MMR Unknown Completed [facility] Polio (IPV/OPV) Unknown Completed [facility] Varicella (varivax)(chicken pox) Unknown Completed [facility] Pneumococcal 7 Conjugate, PCV7 (Prevnar7) Unknown Completed [facility] Influenza Virus Vaccine Quad IM, Preserv and ABX Free 6 MO-64 YRS (FLUCELVAX) Unknown Completed [facility] Influenza Virus Vaccine Quad .5 mL IM 6+ MO (FLUZONE/FLULAVAL/FL UARIX) Unknown Completed [facility] TDAP Unknown Completed [facility] DTAP Unknown Completed [facility] HIB 4 Dose Schedule Unknown Completed [facility] HEPATITIS A Unknown Completed [facility] Hep B, Adol or Pedi Dosage Unknown Completed [facility] HPV Unknown Completed [facility] Meningococcal Polysaccharide (groups A, C, Y and W-135) conjugate vaccine (MCV4P) Unknown Completed [facility] MMR Unknown Completed [facility] Polio (IPV/OPV) Unknown Completed [facility] Varicella (varivax)(chicken pox) Unknown Completed [facility] Pneumococcal 7 Conjugate, PCV7 (Prevnar7) Unknown Completed [facility] Influenza Virus Vaccine Quad IM, Preserv and ABX Free 6 MO-64 YRS (FLUCELVAX) Unknown Completed [facility] Influenza Virus Vaccine Quad .5 mL IM 6+ MO (FLUZONE/FLULAVAL/FL UARIX) Unknown Completed [facility] TDAP Unknown Completed [facility] DTAP Unknown Completed [facility] HIB 4 Dose Schedule Unknown Completed [facility] HEPATITIS A Unknown Completed [facility] Hep B, Adol or Pedi Dosage Unknown Completed [facility] HPV Unknown Completed [facility] Meningococcal Polysaccharide (groups A, C, Y and W-135) conjugate vaccine (MCV4P) Unknown Completed [facility] MMR Unknown Completed [facility] Polio (IPV/OPV) Unknown Completed [facility] Varicella (varivax)(chicken pox) Unknown Completed [facility] Pneumococcal 7 Conjugate, PCV7 (Prevnar7) Unknown Completed [facility] Influenza Virus Vaccine Quad IM, Preserv and ABX Free 6 MO-64 YRS (FLUCELVAX) Unknown Completed [facility] Influenza Virus Vaccine Quad .5 mL IM 6+ MO (FLUZONE/FLULAVAL/FL UARIX) Unknown Completed [facility] TDAP Unknown Completed [facility] DTAP Unknown Completed [facility] HIB 4 Dose Schedule Unknown Completed [facility] HEPATITIS A Unknown Completed [facility] Hep B, Adol or Pedi Dosage Unknown Completed [facility] HPV Unknown Completed [facility] Meningococcal Polysaccharide (groups A, C, Y and W-135) conjugate vaccine (MCV4P) Unknown Completed [facility] MMR Unknown Completed [facility] Polio (IPV/OPV) Unknown Completed [facility] Varicella (varivax)(chicken pox) Unknown Completed [facility] Pneumococcal 7 Conjugate, PCV7 (Prevnar7) Unknown Completed [facility] Influenza Virus Vaccine Quad IM, Preserv and ABX Free 6 MO-64 YRS (FLUCELVAX) Unknown Completed [facility] Influenza Virus Vaccine Quad .5 mL IM 6+ MO (FLUZONE/FLULAVAL/FL UARIX) Unknown Completed [facility] TDAP Unknown Completed [facility] DTAP Unknown Completed [facility] HIB 4 Dose Schedule Unknown Completed [facility] HEPATITIS A Unknown Completed [facility] Hep B, Adol or Pedi Dosage Unknown Completed [facility] HPV Unknown Completed [facility] Meningococcal Polysaccharide (groups A, C, Y and W-135) conjugate vaccine (MCV4P) Unknown Completed [facility] MMR Unknown Completed [facility] Polio (IPV/OPV) Unknown Completed [facility] Varicella (varivax)(chicken pox) Unknown Completed [facility] Pneumococcal 7 Conjugate, PCV7 (Prevnar7) Unknown Completed [facility] Influenza Virus Vaccine Quad IM, Preserv and ABX Free 6 MO-64 YRS (FLUCELVAX) Unknown Completed [facility] Influenza Virus Vaccine Quad .5 mL IM 6+ MO (FLUZONE/FLULAVAL/FL UARIX) Unknown Completed [facility] TDAP Unknown Completed [facility] DTAP Unknown Completed [facility] HIB 4 Dose Schedule Unknown Completed [facility] HEPATITIS A Unknown Completed [facility] Hep B, Adol or Pedi Dosage Unknown Completed [facility] HPV Unknown Completed [facility] Meningococcal Polysaccharide (groups A, C, Y and W-135) conjugate vaccine (MCV4P) Unknown Completed [facility] MMR Unknown Completed [facility] Polio (IPV/OPV) Unknown Completed [facility] Varicella (varivax)(chicken pox) Unknown Completed [facility] Pneumococcal 7 Conjugate, PCV7 (Prevnar7) Unknown Completed [facility] Influenza Virus Vaccine Quad IM, Preserv and ABX Free 6 MO-64 YRS (FLUCELVAX) Unknown Completed [facility] Influenza Virus Vaccine Quad .5 mL IM 6+ MO (FLUZONE/FLULAVAL/FL UARIX) Unknown Completed [facility] TDAP Unknown Completed [facility] DTAP Unknown Completed [facility] HIB 4 Dose Schedule Unknown Completed [facility] HEPATITIS A Unknown Completed [facility] Hep B, Adol or Pedi Dosage Unknown Completed [facility] HPV Unknown Completed [facility] Meningococcal Polysaccharide (groups A, C, Y and W-135) conjugate vaccine (MCV4P) Unknown Completed [facility] MMR Unknown Completed [facility] Polio (IPV/OPV) Unknown Completed [facility] Varicella (varivax)(chicken pox) Unknown Completed [facility] Pneumococcal 7 Conjugate, PCV7 (Prevnar7) Unknown Completed [facility] Influenza Virus Vaccine Quad IM, Preserv and ABX Free 6 MO-64 YRS (FLUCELVAX) Unknown Completed [facility] Influenza Virus Vaccine Quad .5 mL IM 6+ MO (FLUZONE/FLULAVAL/FL UARIX) Unknown Completed [facility] TDAP Unknown Completed [facility] DTAP Unknown Completed [facility] HIB 4 Dose Schedule Unknown Completed [facility] HEPATITIS A Unknown Completed [facility] Hep B, Adol or Pedi Dosage Unknown Completed [facility] HPV Unknown Completed [facility] Meningococcal Polysaccharide (groups A, C, Y and W-135) conjugate vaccine (MCV4P) Unknown Completed [facility] MMR Unknown Completed [facility] Polio (IPV/OPV) Unknown Completed [facility] Varicella (varivax)(chicken pox) Unknown Completed [facility] Pneumococcal 7 Conjugate, PCV7 (Prevnar7) Unknown Completed [facility] Influenza Virus Vaccine Quad IM, Preserv and ABX Free 6 MO-64 YRS (FLUCELVAX) Unknown Completed [facility] Influenza Virus Vaccine Quad .5 mL IM 6+ MO (FLUZONE/FLULAVAL/FL UARIX) Unknown Completed [facility] TDAP Unknown Com[facility] [facility] Com[facility] HIB 4 Dose Schedule Unknown Completed [facility] HEPATITIS A Unknown Completed [facility] Hep B, Adol or Pedi Dosage Unknown Completed [facility] HPV Unknown Completed [facility] Meningococcal Polysaccharide (groups A, C, Y and W-135) conjugate vaccine (MCV4P) Unknown Completed [facility] MMR Unknown Completed [facility] Polio (IPV/OPV) Unknown Completed [facility] Varicella (varivax)(chicken pox) Unknown Completed [facility] Pneumococcal 7 Conjugate, PCV7 (Prevnar7) Unknown Completed [facility] Influenza Virus Vaccine Quad IM, Preserv and ABX Free 6 MO-64 YRS (FLUCELVAX) Unknown Completed [facility] HEPATITIS A Unknown Completed [facility] Meningococcal Polysaccharide (groups A, C, Y and W-135) conjugate vaccine (MCV4P) Unknown Completed [facility] Pneumococcal 7 Conjugate, PCV7 (Prevnar7) Unknown Completed [facility] Influenza Virus Vaccine Quad IM, Preserv and ABX Free 6 MO-64 YRS (FLUCELVAX) Unknown Completed [facility] Influenza Virus Vaccine Quad .5 mL IM 6+ MO (FLUZONE/FLULAVAL/FL UARIX) Unknown Completed [facility] TDAP Unknown Completed [facility] DTAP Unknown Completed [facility] HIB 4 Dose Schedule Unknown Completed [facility] Hep B, Adol or Pedi Dosage Unknown Completed [facility] HPV Unknown Completed [facility] MMR Unknown Completed [facility] Polio (IPV/OPV) Unknown Completed [facility] Varicella (varivax)(chicken pox) Unknown Completed [facility] Influenza Virus Vaccine Quad .5 mL IM 6+ MO (FLUZONE/FLULAVAL/FL UARIX) Unknown Completed [facility] TDAP Unknown Completed [facility] DTAP Unknown Completed [facility] HIB 4 Dose Schedule Unknown Completed [facility] HEPATITIS A Unknown Completed [facility] Hep B, Adol or Pedi Dosage Unknown Completed [facility] HPV Unknown Completed [facility] Meningococcal Polysaccharide (groups A, C, Y and W-135) conjugate vaccine (MCV4P) Unknown Completed [facility] MMR Unknown Completed [facility] Polio (IPV/OPV) Unknown Completed [facility] Varicella (varivax)(chicken pox) Unknown Completed [facility] Pneumococcal 7 Conjugate, PCV7 (Prevnar7) Unknown Completed [facility] Influenza Virus Vaccine Quad IM, Preserv and ABX Free 6 MO-64 YRS (FLUCELVAX) Unknown Completed [facility] Influenza Virus Vaccine Quad .5 mL IM 6+ MO (FLUZONE/FLULAVAL/FL UARIX) Unknown Completed [facility] DTAP Unknown Completed [facility] HIB 4 Dose Schedule Unknown Completed [facility] HEPATITIS A Unknown Completed [facility] Hep B, Adol or Pedi Dosage Unknown Completed [facility] HPV Unknown Completed [facility] Meningococcal Polysaccharide (groups A, C, Y and W-135) conjugate vaccine (MCV4P) Unknown Completed [facility] MMR Unknown Completed [facility] Polio (IPV/OPV) Unknown Completed [facility] Varicella (varivax)(chicken pox) Unknown Completed [facility] Pneumococcal 7 Conjugate, PCV7 (Prevnar7) Unknown Completed [facility] TDAP Unknown Completed [facility] Influenza Virus Vaccine Quad IM, Preserv and ABX Free 6 MO-64 YRS (FLUCELVAX) Unknown Completed [facility] Influenza Virus Vaccine Quad .5 mL IM 6+ MO (FLUZONE/FLULAVAL/FL UARIX) Unknown Completed [facility] TDAP Unknown Completed [facility] DTAP Unknown Completed [facility] HIB 4 Dose Schedule Unknown Completed [facility] HEPATITIS A Unknown Completed [facility] Hep B, Adol or Pedi Dosage Unknown Completed [facility] HPV Unknown Completed [facility] Meningococcal Polysaccharide (groups A, C, Y and W-135) conjugate vaccine (MCV4P) Unknown Completed [facility] MMR Unknown Completed [facility] Polio (IPV/OPV) Unknown Completed [facility] Varicella (varivax)(chicken pox) Unknown Completed [facility] Pneumococcal 7 Conjugate, PCV7 (Prevnar7) Unknown Completed [facility] Influenza Virus Vaccine Quad IM, Preserv and ABX Free 6 MO-64 YRS (FLUCELVAX) Unknown Completed [facility] Influenza Virus Vaccine Quad .5 mL IM 6+ MO (FLUZONE/FLULAVAL/FL UARIX) Unknown Completed [facility] TDAP Unknown Completed [facility] DTAP Unknown Completed [facility] HIB 4 Dose Schedule Unknown Completed [facility] HEPATITIS A Unknown Completed [facility] Hep B, Adol or Pedi Dosage Unknown Completed [facility] HPV Unknown Completed [facility] Meningococcal Polysaccharide (groups A, C, Y and W-135) conjugate vaccine (MCV4P) Unknown Completed [facility] MMR Unknown Completed [facility] Polio (IPV/OPV) Unknown Completed [facility] Varicella (varivax)(chicken pox) Unknown Completed [facility] Pneumococcal 7 Conjugate, PCV7 (Prevnar7) Unknown Completed [facility] Influenza Virus Vaccine Quad IM, Preserv and ABX Free 6 MO-64 YRS (FLUCELVAX) Unknown Completed [facility] Influenza Virus Vaccine Quad .5 mL IM 6+ MO (FLUZONE/FLULAVAL/FL UARIX) Unknown Completed [facility] TDAP Unknown Completed [facility] DTAP Unknown Completed [facility] HIB 4 Dose Schedule Unknown Completed [facility] HEPATITIS A Unknown Completed [facility] Hep B, Adol or Pedi Dosage Unknown Completed [facility] HPV Unknown Completed [facility] Meningococcal Polysaccharide (groups A, C, Y and W-135) conjugate vaccine (MCV4P) Unknown Completed [facility] MMR Unknown Completed [facility] Polio (IPV/OPV) Unknown Completed [facility] Varicella (varivax)(chicken pox) Unknown Completed [facility] Pneumococcal 7 Conjugate, PCV7 (Prevnar7) Unknown Completed [facility] Influenza Virus Vaccine Quad IM, Preserv and ABX Free 6 MO-64 YRS (FLUCELVAX) Unknown Completed [facility] Influenza Virus Vaccine Quad .5 mL IM 6+ MO (FLUZONE/FLULAVAL/FL UARIX) Unknown Completed [facility] TDAP Unknown Completed [facility] DTAP Unknown Completed [facility] HIB 4 Dose Schedule Unknown Completed [facility] HEPATITIS A Unknown Completed [facility] Hep B, Adol or Pedi Dosage Unknown Completed [facility] HPV Unknown Completed [facility] Meningococcal Polysaccharide (groups A, C, Y and W-135) conjugate vaccine (MCV4P) Unknown Completed [facility] MMR Unknown Completed [facility] Polio (IPV/OPV) Unknown Completed [facility] Varicella (varivax)(chicken pox) Unknown Completed [facility] Pneumococcal 7 Conjugate, PCV7 (Prevnar7) Unknown Completed [facility] Influenza Virus Vaccine Quad IM, Preserv and ABX Free 6 MO-64 YRS (FLUCELVAX) Unknown Completed [facility] Influenza Virus Vaccine Quad .5 mL IM 6+ MO (FLUZONE/FLULAVAL/FL UARIX) Unknown Completed [facility] TDAP Unknown Completed [facility] DTAP Unknown Completed [facility] HIB 4 Dose Schedule Unknown Completed [facility] HEPATITIS A Unknown Completed [facility] Hep B, Adol or Pedi Dosage Unknown Completed [facility] HPV Unknown Completed [facility] Meningococcal Polysaccharide (groups A, C, Y and W-135) conjugate vaccine (MCV4P) Unknown Completed [facility] MMR Unknown Completed [facility] Polio (IPV/OPV) Unknown Completed [facility] Varicella (varivax)(chicken pox) Unknown Completed [facility] Pneumococcal 7 Conjugate, PCV7 (Prevnar7) Unknown Completed [facility] Influenza Virus Vaccine Quad IM, Preserv and ABX Free 6 MO-64 YRS (FLUCELVAX) Unknown Completed [facility] Influenza Virus Vaccine Quad .5 mL IM 6+ MO (FLUZONE/FLULAVAL/FL UARIX) Unknown Completed [facility] TDAP Unknown Completed [facility] DTAP Unknown Completed [facility] HIB 4 Dose Schedule Unknown Completed [facility] HEPATITIS A Unknown Completed [facility] Hep B, Adol or Pedi Dosage Unknown Completed [facility] HPV Unknown Completed [facility] Meningococcal Polysaccharide (groups A, C, Y and W-135) conjugate vaccine (MCV4P) Unknown Completed [facility] MMR Unknown Completed [facility] Polio (IPV/OPV) Unknown Completed [facility] Varicella (varivax)(chicken pox) Unknown Completed [facility] Pneumococcal 7 Conjugate, PCV7 (Prevnar7) Unknown Completed [facility] Influenza Virus Vaccine Quad IM, Preserv and ABX Free 6 MO-64 YRS (FLUCELVAX) Unknown Completed [facility] Influenza Virus Vaccine Quad .5 mL IM 6+ MO (FLUZONE/FLULAVAL/FL UARIX) Unknown Completed [facility] TDAP Unknown Completed [facility] DTAP Unknown Completed [facility] HIB 4 Dose Schedule Unknown Completed [facility] HEPATITIS A Unknown Completed [facility] Hep B, Adol or Pedi Dosage Unknown Completed [facility] HPV Unknown Completed [facility] Meningococcal Polysaccharide (groups A, C, Y and W-135) conjugate vaccine (MCV4P) Unknown Completed [facility] MMR Unknown Completed [facility] Polio (IPV/OPV) Unknown Completed [facility] Varicella (varivax)(chicken pox) Unknown Completed [facility] Pneumococcal 7 Conjugate, PCV7 (Prevnar7) Unknown Completed [facility] Influenza Virus Vaccine Quad IM, Preserv and ABX Free 6 MO-64 YRS (FLUCELVAX) Unknown Completed [facility] Influenza Virus Vaccine Quad .5 mL IM 6+ MO (FLUZONE/FLULAVAL/FL UARIX) Unknown Completed [facility] TDAP Unknown Completed [facility] DTAP Unknown Completed [facility] HIB 4 Dose Schedule Unknown Completed [facility] HEPATITIS A Unknown Completed [facility] Hep B, Adol or Pedi Dosage Unknown Completed [facility] HPV Unknown Completed [facility] Meningococcal Polysaccharide (groups A, C, Y and W-135) conjugate vaccine (MCV4P) Unknown Completed [facility] MMR Unknown Completed [facility] Polio (IPV/OPV) Unknown Completed [facility] Varicella (varivax)(chicken pox) Unknown Completed [facility] Pneumococcal 7 Conjugate, PCV7 (Prevnar7) Unknown Completed [facility] Influenza Virus Vaccine Quad IM, Preserv and ABX Free 6 MO-64 YRS (FLUCELVAX) Unknown Completed [facility] Influenza Virus Vaccine Quad .5 mL IM 6+ MO (FLUZONE/FLULAVAL/FL UARIX) Unknown Completed [facility] TDAP Unknown Completed [facility] DTAP Unknown Completed [facility] HIB 4 Dose Schedule Unknown Completed [facility] HEPATITIS A Unknown Completed [facility] Hep B, Adol or Pedi Dosage Unknown Completed [facility] HPV Unknown Completed [facility] Meningococcal Polysaccharide (groups A, C, Y and W-135) conjugate vaccine (MCV4P) Unknown Completed [facility] MMR Unknown Completed [facility] Polio (IPV/OPV) Unknown Completed [facility] Varicella (varivax)(chicken pox) Unknown Completed [facility] Pneumococcal 7 Conjugate, PCV7 (Prevnar7) Unknown Completed [facility] Influenza Virus Vaccine Quad IM, Preserv and ABX Free 6 MO-64 YRS (FLUCELVAX) Unknown Completed [facility] Influenza Virus Vaccine Quad .5 mL IM 6+ MO (FLUZONE/FLULAVAL/FL UARIX) Unknown Completed [facility] TDAP Unknown Completed [facility] DTAP Unknown Completed [facility] HIB 4 Dose Schedule Unknown Completed [facility] HEPATITIS A Unknown Completed [facility] Hep B, Adol or Pedi Dosage Unknown Completed [facility] HPV Unknown Completed [facility] Meningococcal Polysaccharide (groups A, C, Y and W-135) conjugate vaccine (MCV4P) Unknown Completed [facility] MMR Unknown Completed [facility] Polio (IPV/OPV) Unknown Completed [facility] Varicella (varivax)(chicken pox) Unknown Completed [facility] Pneumococcal 7 Conjugate, PCV7 (Prevnar7) Unknown Completed [facility] Influenza Virus Vaccine Quad IM, Preserv and ABX Free 6 MO-64 YRS (FLUCELVAX) Unknown Completed [facility] Influenza Virus Vaccine Quad .5 mL IM 6+ MO (FLUZONE/FLULAVAL/FL UARIX) Unknown Completed [facility] TDAP Unknown Completed [facility] DTAP Unknown Completed [facility] HIB 4 Dose Schedule Unknown Completed [facility] HEPATITIS A Unknown Completed [facility] Hep B, Adol or Pedi Dosage Unknown Completed [facility] HPV Unknown Completed [facility] Meningococcal Polysaccharide (groups A, C, Y and W-135) conjugate vaccine (MCV4P) Unknown Completed [facility] MMR Unknown Completed [facility] Polio (IPV/OPV) Unknown Completed [facility] Varicella (varivax)(chicken pox) Unknown Completed [facility] Pneumococcal 7 Conjugate, PCV7 (Prevnar7) Unknown Completed [facility] Influenza Virus Vaccine Quad IM, Preserv and ABX Free 6 MO-64 YRS (FLUCELVAX) Unknown Completed [facility] Influenza Virus Vaccine Quad .5 mL IM 6+ MO (FLUZONE/FLULAVAL/FL UARIX) Unknown Completed [facility] TDAP Unknown Completed [facility] DTAP Unknown Completed [facility] HIB 4 Dose Schedule Unknown Completed [facility] HEPATITIS A Unknown Completed [facility] Hep B, Adol or Pedi Dosage Unknown Completed [facility] HPV Unknown Completed [facility] Meningococcal Polysaccharide (groups A, C, Y and W-135) conjugate vaccine (MCV4P) Unknown Completed [facility] MMR Unknown Completed [facility] Polio (IPV/OPV) Unknown Completed [facility] Varicella (varivax)(chicken pox) Unknown Completed [facility] Pneumococcal 7 Conjugate, PCV7 (Prevnar7) Unknown Completed [facility] Influenza Virus Vaccine Quad IM, Preserv and ABX Free 6 MO-64 YRS (FLUCELVAX) Unknown Completed [facility] Influenza Virus Vaccine Quad .5 mL IM 6+ MO (FLUZONE/FLULAVAL/FL UARIX) Unknown Completed [facility] TDAP Unknown Completed [facility] DTAP Unknown Completed [facility] HIB 4 Dose Schedule Unknown Completed [facility] HEPATITIS A Unknown Completed [facility] Hep B, Adol or Pedi Dosage Unknown Completed [facility] HPV Unknown Completed [facility] Meningococcal Polysaccharide (groups A, C, Y and W-135) conjugate vaccine (MCV4P) Unknown Completed [facility] MMR Unknown Completed [facility] Polio (IPV/OPV) Unknown Completed [facility] Varicella (varivax)(chicken pox) Unknown Completed [facility] Pneumococcal 7 Conjugate, PCV7 (Prevnar7) Unknown Completed [facility] Influenza Virus Vaccine Quad IM, Preserv and ABX Free 6 MO-64 YRS (FLUCELVAX) Unknown Completed [facility] Influenza Virus Vaccine Quad .5 mL IM 6+ MO (FLUZONE/FLULAVAL/FL UARIX) Unknown Completed [facility] DTAP Unknown Completed [facility] HIB 4 Dose Schedule Unknown Completed [facility] HEPATITIS A Unknown Completed [facility] Hep B, Adol or Pedi Dosage Unknown Completed [facility] HPV Unknown Completed [facility] Meningococcal Polysaccharide (groups A, C, Y and W-135) conjugate vaccine (MCV4P) Unknown Completed [facility] MMR Unknown Completed [facility] Polio (IPV/OPV) Unknown Completed [facility] Varicella (varivax)(chicken pox) Unknown Completed [facility] Pneumococcal 7 Conjugate, PCV7 (Prevnar7) Unknown Completed [facility] TDAP Unknown Completed [facility] Influenza Virus Vaccine Quad IM, Preserv and ABX Free 6 MO-64 YRS (FLUCELVAX) Unknown Completed [facility] Influenza Virus Vaccine Quad .5 mL IM 6+ MO (FLUZONE/FLULAVAL/FL UARIX) Unknown Completed [facility] TDAP Unknown Completed [facility] DTAP Unknown Completed [facility] HIB 4 Dose Schedule Unknown Completed [facility] HEPATITIS A Unknown Completed [facility] Hep B, Adol or Pedi Dosage Unknown Completed [facility] HPV Unknown Completed [facility] Meningococcal Polysaccharide (groups A, C, Y and W-135) conjugate vaccine (MCV4P) Unknown Completed [facility] MMR Unknown Completed [facility] Polio (IPV/OPV) Unknown Completed [facility] Varicella (varivax)(chicken pox) Unknown Completed [facility] Pneumococcal 7 Conjugate, PCV7 (Prevnar7) Unknown Completed [facility] Influenza Virus Vaccine Quad IM, Preserv and ABX Free 6 MO-64 YRS (FLUCELVAX) Unknown Completed [facility] Influenza Virus Vaccine Quad .5 mL IM 6+ MO (FLUZONE/FLULAVAL/FL UARIX) Unknown Completed [facility] TDAP Unknown Completed [facility] DTAP Unknown Completed [facility] HIB 4 Dose Schedule Unknown Completed [facility] HEPATITIS A Unknown Completed [facility] Hep B, Adol or Pedi Dosage Unknown Completed [facility] HPV Unknown Completed [facility] Meningococcal Polysaccharide (groups A, C, Y and W-135) conjugate vaccine (MCV4P) Unknown Completed [facility] MMR Unknown Completed [facility] Polio (IPV/OPV) Unknown Completed [facility] Varicella (varivax)(chicken pox) Unknown Completed [facility] Pneumococcal 7 Conjugate, PCV7 (Prevnar7) Unknown Completed [facility] Influenza Virus Vaccine Quad IM, Preserv and ABX Free 6 MO-64 YRS (FLUCELVAX) Unknown Completed [facility] Influenza Virus Vaccine Quad .5 mL IM 6+ MO (FLUZONE/FLULAVAL/FL UARIX) Unknown Completed [facility] TDAP Unknown Completed [facility] DTAP Unknown Completed [facility] HIB 4 Dose Schedule Unknown Completed [facility] HEPATITIS A Unknown Completed [facility] Hep B, Adol or Pedi Dosage Unknown Completed [facility] HPV Unknown Completed [facility] Meningococcal Polysaccharide (groups A, C, Y and W-135) conjugate vaccine (MCV4P) Unknown Completed [facility] MMR Unknown Completed [facility] Polio (IPV/OPV) Unknown Completed [facility] Varicella (varivax)(chicken pox) Unknown Completed [facility] Pneumococcal 7 Conjugate, PCV7 (Prevnar7) Unknown Completed [facility] Influenza Virus Vaccine Quad IM, Preserv and ABX Free 6 MO-64 YRS (FLUCELVAX) Unknown Completed [facility] Influenza Virus Vaccine Quad .5 mL IM 6+ MO (FLUZONE/FLULAVAL/FL UARIX) Unknown Completed [facility] TDAP Unknown Completed [facility] DTAP Unknown Completed [facility] HIB 4 Dose Schedule Unknown Completed [facility] HEPATITIS A Unknown Completed [facility] Hep B, Adol or Pedi Dosage Unknown Completed [facility] HPV Unknown Completed [facility] Meningococcal Polysaccharide (groups A, C, Y and W-135) conjugate vaccine (MCV4P) Unknown Completed [facility] MMR Unknown Completed [facility] Polio (IPV/OPV) Unknown Completed [facility] Varicella (varivax)(chicken pox) Unknown Completed [facility] Pneumococcal 7 Conjugate, PCV7 (Prevnar7) Unknown Completed [facility] Influenza Virus Vaccine Quad IM, Preserv and ABX Free 6 MO-64 YRS (FLUCELVAX) Unknown Completed [facility] Influenza Virus Vaccine Quad .5 mL IM 6+ MO (FLUZONE/FLULAVAL/FL UARIX) Unknown Completed [facility] TDAP Unknown Completed [facility] DTAP Unknown Completed [facility] HIB 4 Dose Schedule Unknown Completed [facility] HEPATITIS A Unknown Completed [facility] Hep B, Adol or Pedi Dosage Unknown Completed [facility] HPV Unknown Completed [facility] Meningococcal Polysaccharide (groups A, C, Y and W-135) conjugate vaccine (MCV4P) Unknown Completed [facility] MMR Unknown Completed [facility] Polio (IPV/OPV) Unknown Completed [facility] Varicella (varivax)(chicken pox) Unknown Completed [facility] Pneumococcal 7 Conjugate, PCV7 (Prevnar7) Unknown Completed [facility] Influenza Virus Vaccine Quad IM, Preserv and ABX Free 6 MO-64 YRS (FLUCELVAX) Unknown Completed [facility] Influenza Virus Vaccine Quad .5 mL IM 6+ MO (FLUZONE/FLULAVAL/FL UARIX) Unknown Completed [facility] TDAP Unknown Completed [facility] DTAP Unknown Completed [facility] HIB 4 Dose Schedule Unknown Completed [facility] HEPATITIS A Unknown Completed [facility] Hep B, Adol or Pedi Dosage Unknown Completed [facility] HPV Unknown Completed [facility] Meningococcal Polysaccharide (groups A, C, Y and W-135) conjugate vaccine (MCV4P) Unknown Completed [facility] MMR Unknown Completed [facility] Polio (IPV/OPV) Unknown Completed [facility] Varicella (varivax)(chicken pox) Unknown Completed [facility] Pneumococcal 7 Conjugate, PCV7 (Prevnar7) Unknown Completed [facility] Influenza Virus Vaccine Quad IM, Preserv and ABX Free 6 MO-64 YRS (FLUCELVAX) Unknown Completed [facility] Influenza Virus Vaccine Quad .5 mL IM 6+ MO (FLUZONE/FLULAVAL/FL UARIX) Unknown Completed [facility] TDAP Unknown Completed [facility] DTAP Unknown Completed [facility] HIB 4 Dose Schedule Unknown Completed [facility] HEPATITIS A Unknown Completed [facility] Hep B, Adol or Pedi Dosage Unknown Completed [facility] HPV Unknown Completed [facility] Meningococcal Polysaccharide (groups A, C, Y and W-135) conjugate vaccine (MCV4P) Unknown Completed [facility] MMR Unknown Completed [facility] Polio (IPV/OPV) Unknown Completed [facility] Varicella (varivax)(chicken pox) Unknown Completed [facility] Pneumococcal 7 Conjugate, PCV7 (Prevnar7) Unknown Completed [facility] Influenza Virus Vaccine Quad IM, Preserv and ABX Free 6 MO-64 YRS (FLUCELVAX) Unknown Completed [facility] Influenza Virus Vaccine Quad .5 mL IM 6+ MO (FLUZONE/FLULAVAL/FL UARIX) Unknown Completed [facility] TDAP Unknown Completed [facility] DTAP Unknown Completed [facility] HIB 4 Dose Schedule Unknown Completed [facility] HEPATITIS A Unknown Completed [facility] Hep B, Adol or Pedi Dosage Unknown Completed [facility] HPV Unknown Completed [facility] Meningococcal Polysaccharide (groups A, C, Y and W-135) conjugate vaccine (MCV4P) Unknown Completed [facility] MMR Unknown Completed [facility] Polio (IPV/OPV) Unknown Completed [facility] Varicella (varivax)(chicken pox) Unknown Completed [facility] Pneumococcal 7 Conjugate, PCV7 (Prevnar7) Unknown Completed [facility] Influenza Virus Vaccine Quad IM, Preserv and ABX Free 6 MO-64 YRS (FLUCELVAX) Unknown Completed [facility] Influenza Virus Vaccine Quad .5 mL IM 6+ MO (FLUZONE/FLULAVAL/FL UARIX) Unknown Completed [facility] TDAP Unknown Completed [facility] DTAP Unknown Completed [facility] HIB 4 Dose Schedule Unknown Completed [facility] HEPATITIS A Unknown Completed [facility] Hep B, Adol or Pedi Dosage Unknown Completed [facility] HPV Unknown Completed [facility] Meningococcal Polysaccharide (groups A, C, Y and W-135) conjugate vaccine (MCV4P) Unknown Completed [facility] MMR Unknown Completed [facility] Polio (IPV/OPV) Unknown Completed [facility] Varicella (varivax)(chicken pox) Unknown Completed [facility] Pneumococcal 7 Conjugate, PCV7 (Prevnar7) Unknown Completed [facility] Influenza Virus Vaccine Quad IM, Preserv and ABX Free 6 MO-64 YRS (FLUCELVAX) Unknown Completed [facility] Influenza Virus Vaccine Quad .5 mL IM 6+ MO (FLUZONE/FLULAVAL/FL UARIX) Unknown Completed [facility] TDAP Unknown Completed [facility] DTAP Unknown Completed [facility] HIB 4 Dose Schedule Unknown Completed [facility] HEPATITIS A Unknown Completed [facility] Hep B, Adol or Pedi Dosage Unknown Completed [facility] HPV Unknown Completed [facility] Meningococcal Polysaccharide (groups A, C, Y and W-135) conjugate vaccine (MCV4P) Unknown Completed [facility] MMR Unknown Completed [facility] Polio (IPV/OPV) Unknown Completed [facility] Varicella (varivax)(chicken pox) Unknown Completed [facility] Pneumococcal 7 Conjugate, PCV7 (Prevnar7) Unknown Completed [facility] Influenza Virus Vaccine Quad IM, Preserv and ABX Free 6 MO-64 YRS (FLUCELVAX) Unknown Completed [facility] Influenza Virus Vaccine Quad .5 mL IM 6+ MO (FLUZONE/FLULAVAL/FL UARIX) Unknown Completed [facility] TDAP Unknown Completed [facility] DTAP Unknown Completed [facility] HIB 4 Dose Schedule Unknown Completed [facility] HEPATITIS A Unknown Completed [facility] Hep B, Adol or Pedi Dosage Unknown Completed [facility] HPV Unknown Completed [facility] Meningococcal Polysaccharide (groups A, C, Y and W-135) conjugate vaccine (MCV4P) Unknown Completed [facility] MMR Unknown Completed [facility] Polio (IPV/OPV) Unknown Completed [facility] Varicella (varivax)(chicken pox) Unknown Completed [facility] Pneumococcal 7 Conjugate, PCV7 (Prevnar7) Unknown Completed [facility] Influenza Virus Vaccine Quad IM, Preserv and ABX Free 6 MO-64 YRS (FLUCELVAX) Unknown Completed [facility] Influenza Virus Vaccine Quad .5 mL IM 6+ MO (FLUZONE/FLULAVAL/FL UARIX) Unknown Completed [facility] TDAP Unknown Completed [facility] DTAP Unknown Completed [facility] HIB 4 Dose Schedule Unknown Completed [facility] HEPATITIS A Unknown Completed [facility] Hep B, Adol or Pedi Dosage Unknown Completed [facility] HPV Unknown Completed [facility] Meningococcal Polysaccharide (groups A, C, Y and W-135) conjugate vaccine (MCV4P) Unknown Completed [facility] MMR Unknown Completed [facility] Polio (IPV/OPV) Unknown Completed [facility] Varicella (varivax)(chicken pox) Unknown Completed [facility] Pneumococcal 7 Conjugate, PCV7 (Prevnar7) Unknown Completed [facility] Influenza Virus Vaccine Quad IM, Preserv and ABX Free 6 MO-64 YRS (FLUCELVAX) Unknown Completed [facility] Influenza Virus Vaccine Quad .5 mL IM 6+ MO (FLUZONE/FLULAVAL/FL UARIX) Unknown Completed [facility] TDAP Unknown Completed [facility] DTAP Unknown Completed [facility] HIB 4 Dose Schedule Unknown Completed [facility] HEPATITIS A Unknown Completed [facility] Hep B, Adol or Pedi Dosage Unknown Completed [facility] HPV Unknown Completed [facility] Meningococcal Polysaccharide (groups A, C, Y and W-135) conjugate vaccine (MCV4P) Unknown Completed [facility] MMR Unknown Completed [facility] Polio (IPV/OPV) Unknown Completed [facility] Varicella (varivax)(chicken pox) Unknown Completed [facility] Pneumococcal 7 Conjugate, PCV7 (Prevnar7) Unknown Completed [facility] Influenza Virus Vaccine Quad IM, Preserv and ABX Free 6 MO-64 YRS (FLUCELVAX) Unknown Completed [facility] Influenza Virus Vaccine Quad .5 mL IM 6+ MO (FLUZONE/FLULAVAL/FL UARIX) Unknown Completed [facility] TDAP Unknown Completed [facility] DTAP Unknown Completed [facility] HIB 4 Dose Schedule Unknown Completed [facility] HEPATITIS A Unknown Completed [facility] Hep B, Adol or Pedi Dosage Unknown Completed [facility] HPV Unknown Completed [facility] Meningococcal Polysaccharide (groups A, C, Y and W-135) conjugate vaccine (MCV4P) Unknown Completed [facility] MMR Unknown Completed [facility] Polio (IPV/OPV) Unknown Completed [facility] Varicella (varivax)(chicken pox) Unknown Completed [facility] Pneumococcal 7 Conjugate, PCV7 (Prevnar7) Unknown Completed [facility] Influenza Virus Vaccine Quad IM, Preserv and ABX Free 6 MO-64 YRS (FLUCELVAX) Unknown Completed [facility] Influenza Virus Vaccine Quad .5 mL IM 6+ MO (FLUZONE/FLULAVAL/FL UARIX) Unknown Completed [facility] TDAP Unknown Completed [facility] DTAP Unknown Completed [facility] HIB 4 Dose Schedule Unknown Completed [facility] HEPATITIS A Unknown Completed [facility] Hep B, Adol or Pedi Dosage Unknown Completed [facility] HPV Unknown Completed [facility] Meningococcal Polysaccharide (groups A, C, Y and W-135) conjugate vaccine (MCV4P) Unknown Completed [facility] MMR Unknown Completed [facility] Polio (IPV/OPV) Unknown Completed [facility] Varicella (varivax)(chicken pox) Unknown Completed [facility] Pneumococcal 7 Conjugate, PCV7 (Prevnar7) Unknown Completed [facility] Influenza Virus Vaccine Quad IM, Preserv and ABX Free 6 MO-64 YRS (FLUCELVAX) Unknown Completed [facility] Influenza Virus Vaccine Quad .5 mL IM 6+ MO (FLUZONE/FLULAVAL/FL UARIX) Unknown Completed [facility] TDAP Unknown Completed [facility] DTAP Unknown Completed [facility] HIB 4 Dose Schedule Unknown Completed [facility] HEPATITIS A Unknown Completed [facility] Hep B, Adol or Pedi Dosage Unknown Completed [facility] HPV Unknown Completed [facility] Meningococcal Polysaccharide (groups A, C, Y and W-135) conjugate vaccine (MCV4P) Unknown Completed [facility] MMR Unknown Completed [facility] Polio (IPV/OPV) Unknown Completed [facility] Varicella (varivax)(chicken pox) Unknown Completed [facility] Pneumococcal 7 Conjugate, PCV7 (Prevnar7) Unknown Completed [facility] Influenza Virus Vaccine Quad IM, Preserv and ABX Free 6 MO-64 YRS (FLUCELVAX) Unknown Completed [facility] Influenza Virus Vaccine Quad .5 mL IM 6+ MO (FLUZONE/FLULAVAL/FL UARIX) Unknown Completed [facility] TDAP Unknown Completed [facility] DTAP Unknown Completed [facility] HIB 4 Dose Schedule Unknown Completed [facility] HEPATITIS A Unknown Completed [facility] Hep B, Adol or Pedi Dosage Unknown Completed [facility] HPV Unknown Completed [facility] Meningococcal Polysaccharide (groups A, C, Y and W-135) conjugate vaccine (MCV4P) Unknown Completed [facility] MMR Unknown Completed [facility] Polio (IPV/OPV) Unknown Completed [facility] Varicella (varivax)(chicken pox) Unknown Completed [facility] Pneumococcal 7 Conjugate, PCV7 (Prevnar7) Unknown Completed [facility] Influenza Virus Vaccine Quad IM, Preserv and ABX Free 6 MO-64 YRS (FLUCELVAX) Unknown Completed [facility] Influenza Virus Vaccine Quad .5 mL IM 6+ MO (FLUZONE/FLULAVAL/FL UARIX) Unknown Completed [facility] TDAP Unknown Completed [facility] DTAP Unknown Completed [facility] HIB 4 Dose Schedule Unknown Completed [facility] HEPATITIS A Unknown Completed [facility] Hep B, Adol or Pedi Dosage Unknown Completed [facility] HPV Unknown Completed [facility] Meningococcal Polysaccharide (groups A, C, Y and W-135) conjugate vaccine (MCV4P) Unknown Completed [facility] MMR Unknown Completed [facility] Polio (IPV/OPV) Unknown Completed [facility] Varicella (varivax)(chicken pox) Unknown Completed [facility] Pneumococcal 7 Conjugate, PCV7 (Prevnar7) Unknown Completed [facility] Influenza Virus Vaccine Quad IM, Preserv and ABX Free 6 MO-64 YRS (FLUCELVAX) Unknown Completed [facility] Influenza Virus Vaccine Quad .5 mL IM 6+ MO (FLUZONE/FLULAVAL/FL UARIX) Unknown Completed [facility] TDAP Unknown Completed [facility] DTAP Unknown Completed [facility] HIB 4 Dose Schedule Unknown Completed [facility] HEPATITIS A Unknown Completed [facility] Hep B, Adol or Pedi Dosage Unknown Completed [facility] HPV Unknown Completed [facility] Meningococcal Polysaccharide (groups A, C, Y and W-135) conjugate vaccine (MCV4P) Unknown Completed [facility] MMR Unknown Completed [facility] Polio (IPV/OPV) Unknown Completed [facility] Varicella (varivax)(chicken pox) Unknown Completed [facility] Pneumococcal 7 Conjugate, PCV7 (Prevnar7) Unknown Completed [facility] Influenza Virus Vaccine Quad IM, Preserv and ABX Free 6 MO-64 YRS (FLUCELVAX) Unknown Completed [facility] Influenza Virus Vaccine Quad .5 mL IM 6+ MO (FLUZONE/FLULAVAL/FL UARIX) Unknown Completed [facility] TDAP Unknown Completed [facility] DTAP Unknown Completed [facility] HIB 4 Dose Schedule Unknown Completed [facility] HEPATITIS A Unknown Completed [facility] Hep B, Adol or Pedi Dosage Unknown Completed [facility] HPV Unknown Completed [facility] Meningococcal Polysaccharide (groups A, C, Y and W-135) conjugate vaccine (MCV4P) Unknown Completed [facility] MMR Unknown Completed [facility] Polio (IPV/OPV) Unknown Completed [facility] Varicella (varivax)(chicken pox) Unknown Completed [facility] Pneumococcal 7 Conjugate, PCV7 (Prevnar7) Unknown Completed [facility] Influenza Virus Vaccine Quad IM, Preserv and ABX Free 6 MO-64 YRS (FLUCELVAX) Unknown Completed [facility] Influenza Virus Vaccine Quad .5 mL IM 6+ MO (FLUZONE/FLULAVAL/FL UARIX) Unknown Completed [facility] TDAP Unknown Completed [facility] DTAP Unknown Completed [facility] HIB 4 Dose Schedule Unknown Completed [facility] HEPATITIS A Unknown Completed [facility] Hep B, Adol or Pedi Dosage Unknown Completed [facility] HPV Unknown Completed [facility] Meningococcal Polysaccharide (groups A, C, Y and W-135) conjugate vaccine (MCV4P) Unknown Completed [facility] MMR Unknown Completed [facility] Polio (IPV/OPV) Unknown Completed [facility] Varicella (varivax)(chicken pox) Unknown Completed [facility] Pneumococcal 7 Conjugate, PCV7 (Prevnar7) Unknown Completed [facility] Influenza Virus Vaccine Quad IM, Preserv and ABX Free 6 MO-64 YRS (FLUCELVAX) Unknown Completed [facility] Influenza Virus Vaccine Quad .5 mL IM 6+ MO (FLUZONE/FLULAVAL/FL UARIX) Unknown Completed [facility] TDAP Unknown Completed [facility] DTAP Unknown Completed [facility] HIB 4 Dose Schedule Unknown Completed [facility] HEPATITIS A Unknown Completed [facility] Hep B, Adol or Pedi Dosage Unknown Completed [facility] HPV Unknown Completed [facility] Meningococcal Polysaccharide (groups A, C, Y and W-135) conjugate vaccine (MCV4P) Unknown Completed [facility] MMR Unknown Completed [facility] Polio (IPV/OPV) Unknown Completed [facility] Varicella (varivax)(chicken pox) Unknown Completed [facility] Pneumococcal 7 Conjugate, PCV7 (Prevnar7) Unknown Completed [facility] Influenza Virus Vaccine Quad IM, Preserv and ABX Free 6 MO-64 YRS (FLUCELVAX) Unknown Completed [facility] Influenza Virus Vaccine Quad .5 mL IM 6+ MO (FLUZONE/FLULAVAL/FL UARIX) Unknown Completed [facility] TDAP Unknown Completed [facility] DTAP Unknown Completed [facility] HIB 4 Dose Schedule Unknown Completed [facility] HEPATITIS A Unknown Completed [facility] Hep B, Adol or Pedi Dosage Unknown Completed [facility] HPV Unknown Completed [facility] Meningococcal Polysaccharide (groups A, C, Y and W-135) conjugate vaccine (MCV4P) Unknown Completed [facility] MMR Unknown Completed [facility] Polio (IPV/OPV) Unknown Completed [facility] Varicella (varivax)(chicken pox) Unknown Completed [facility] Pneumococcal 7 Conjugate, PCV7 (Prevnar7) Unknown Completed [facility] Influenza Virus Vaccine Quad IM, Preserv and ABX Free 6 MO-64 YRS (FLUCELVAX) Unknown Completed [facility] Influenza Virus Vaccine Quad .5 mL IM 6+ MO (FLUZONE/FLULAVAL/FL UARIX) Unknown Completed [facility] TDAP Unknown Completed [facility] DTAP Unknown Completed [facility] HIB 4 Dose Schedule Unknown Completed [facility] HEPATITIS A Unknown Completed [facility] Hep B, Adol or Pedi Dosage Unknown Completed [facility] HPV Unknown Completed [facility] Meningococcal Polysaccharide (groups A, C, Y and W-135) conjugate vaccine (MCV4P) Unknown Completed [facility] MMR Unknown Completed [facility] Polio (IPV/OPV) Unknown Completed [facility] Varicella (varivax)(chicken pox) Unknown Completed [facility] Pneumococcal 7 Conjugate, PCV7 (Prevnar7) Unknown Completed [facility] Influenza Virus Vaccine Quad IM, Preserv and ABX Free 6 MO-64 YRS (FLUCELVAX) Unknown Completed [facility] Influenza Virus Vaccine Quad .5 mL IM 6+ MO (FLUZONE/FLULAVAL/FL UARIX) Unknown Completed [facility] TDAP Unknown Completed [facility] DTAP Unknown Completed [facility] HIB 4 Dose Schedule Unknown Completed [facility] HEPATITIS A Unknown Completed [facility] Hep B, Adol or Pedi Dosage Unknown Completed [facility] HPV Unknown Completed [facility] Meningococcal Polysaccharide (groups A, C, Y and W-135) conjugate vaccine (MCV4P) Unknown Completed [facility] MMR Unknown Completed [facility] Polio (IPV/OPV) Unknown Completed [facility] Varicella (varivax)(chicken pox) Unknown Completed [facility] Pneumococcal 7 Conjugate, PCV7 (Prevnar7) Unknown Completed [facility] Influenza Virus Vaccine Quad IM, Preserv and ABX Free 6 MO-64 YRS (FLUCELVAX) Unknown Completed [facility] Influenza Virus Vaccine Quad .5 mL IM 6+ MO (FLUZONE/FLULAVAL/FL UARIX) Unknown Completed [facility] TDAP Unknown Completed [facility] DTAP Unknown Completed [facility] HIB 4 Dose Schedule Unknown Completed [facility] HEPATITIS A Unknown Completed [facility] Hep B, Adol or Pedi Dosage Unknown Completed [facility] HPV Unknown Completed [facility] Meningococcal Polysaccharide (groups A, C, Y and W-135) conjugate vaccine (MCV4P) Unknown Completed [facility] MMR Unknown Completed [facility] Polio (IPV/OPV) Unknown Completed [facility] Varicella (varivax)(chicken pox) Unknown Completed [facility] Pneumococcal 7 Conjugate, PCV7 (Prevnar7) Unknown Completed [facility] Influenza Virus Vaccine Quad IM, Preserv and ABX Free 6 MO-64 YRS (FLUCELVAX) Unknown Completed [facility] Influenza Virus Vaccine Quad .5 mL IM 6+ MO (FLUZONE/FLULAVAL/FL UARIX) Unknown Completed [facility] TDAP Unknown Completed [facility] DTAP Unknown Completed [facility] HIB 4 Dose Schedule Unknown Completed [facility] HEPATITIS A Unknown Completed [facility] Hep B, Adol or Pedi Dosage Unknown Completed [facility] HPV Unknown Completed [facility] Meningococcal Polysaccharide (groups A, C, Y and W-135) conjugate vaccine (MCV4P) Unknown Completed [facility] MMR Unknown Completed [facility] Polio (IPV/OPV) Unknown Completed [facility] Varicella (varivax)(chicken pox) Unknown Completed [facility] Pneumococcal 7 Conjugate, PCV7 (Prevnar7) Unknown Completed [facility] Influenza Virus Vaccine Quad IM, Preserv and ABX Free 6 MO-64 YRS (FLUCELVAX) Unknown Completed [facility] HEPATITIS A Unknown Completed [facility] Meningococcal Polysaccharide (groups A, C, Y and W-135) conjugate vaccine (MCV4P) Unknown Completed [facility] Pneumococcal 7 Conjugate, PCV7 (Prevnar7) Unknown Completed [facility] Influenza Virus Vaccine Quad IM, Preserv and ABX Free 6 MO-64 YRS (FLUCELVAX) Unknown Completed [facility] Influenza Virus Vaccine Quad .5 mL IM 6+ MO (FLUZONE/FLULAVAL/FL UARIX) Unknown Completed [facility] TDAP Unknown Completed [facility] DTAP Unknown Completed [facility] HIB 4 Dose Schedule Unknown Completed [facility] Hep B, Adol or Pedi Dosage Unknown Completed [facility] HPV Unknown Completed [facility] MMR Unknown Completed [facility] Polio (IPV/OPV) Unknown Completed [facility] Varicella (varivax)(chicken pox) Unknown Completed [facility] Influenza Virus Vaccine Quad .5 mL IM 6+ MO (FLUZONE/FLULAVAL/FL UARIX) Unknown Completed [facility] DTAP Unknown Completed [facility] HIB 4 Dose Schedule Unknown Completed [facility] HEPATITIS A Unknown Completed [facility] Hep B, Adol or Pedi Dosage Unknown Completed [facility] HPV Unknown Completed [facility] Meningococcal Polysaccharide (groups A, C, Y and W-135) conjugate vaccine (MCV4P) Unknown Completed [facility] MMR Unknown Completed [facility] Polio (IPV/OPV) Unknown Completed [facility] Varicella (varivax)(chicken pox) Unknown Completed [facility] Pneumococcal 7 Conjugate, PCV7 (Prevnar7) Unknown Completed [facility] TDAP Unknown Completed [facility] Influenza Virus Vaccine Quad IM, Preserv and ABX Free 6 MO-64 YRS (FLUCELVAX) Unknown Completed [facility] Influenza Virus Vaccine Quad .5 mL IM 6+ MO (FLUZONE/FLULAVAL/FL UARIX) Unknown Completed [facility] TDAP Unknown Completed [facility] DTAP Unknown Completed [facility] HIB 4 Dose Schedule Unknown Completed [facility] HEPATITIS A Unknown Completed [facility] Hep B, Adol or Pedi Dosage Unknown Completed [facility] HPV Unknown Completed [facility] Meningococcal Polysaccharide (groups A, C, Y and W-135) conjugate vaccine (MCV4P) Unknown Completed [facility] MMR Unknown Completed [facility] Polio (IPV/OPV) Unknown Com[facility] [facility] Varicella (varivax)(chicken pox) Unknown Completed [facility] Pneumococcal 7 Conjugate, PCV7 (Prevnar7) Unknown Completed [facility] Influenza Virus Vaccine Quad IM, Preserv and ABX Free 6 MO-64 YRS (FLUCELVAX) Unknown Completed [facility] Influenza Virus Vaccine Quad .5 mL IM 6+ MO (FLUZONE/FLULAVAL/FL UARIX) Unknown Completed [facility] TDAP Unknown Completed [facility] DTAP Unknown Completed [facility] HIB 4 Dose Schedule Unknown Completed [facility] HEPATITIS A Unknown Completed [facility] Hep B, Adol or Pedi Dosage Unknown Completed [facility] HPV Unknown Completed [facility] Meningococcal Polysaccharide (groups A, C, Y and W-135) conjugate vaccine (MCV4P) Unknown Completed [facility] MMR Unknown Completed [facility] Polio (IPV/OPV) Unknown Completed [facility] Varicella (varivax)(chicken pox) Unknown Completed [facility] Pneumococcal 7 Conjugate, PCV7 (Prevnar7) Unknown Completed [facility] Influenza Virus Vaccine Quad IM, Preserv and ABX Free 6 MO-64 YRS (FLUCELVAX) Unknown Completed [facility] Influenza Virus Vaccine Quad .5 mL IM 6+ MO (FLUZONE/FLULAVAL/FL UARIX) Unknown Completed [facility] TDAP Unknown Completed [facility] DTAP Unknown Completed [facility] HIB 4 Dose Schedule Unknown Completed [facility] HEPATITIS A Unknown Completed [facility] Hep B, Adol or Pedi Dosage Unknown Completed [facility] HPV Unknown Completed [facility] Meningococcal Polysaccharide (groups A, C, Y and W-135) conjugate vaccine (MCV4P) Unknown Completed [facility] MMR Unknown Completed [facility] Polio (IPV/OPV) Unknown Completed [facility] Varicella (varivax)(chicken pox) Unknown Completed [facility] Pneumococcal 7 Conjugate, PCV7 (Prevnar7) Unknown Completed [facility] Influenza Virus Vaccine Quad IM, Preserv and ABX Free 6 MO-64 YRS (FLUCELVAX) Unknown Completed [facility] Vital Signs Vital Name Observation Time Observation Value Comments S jazzy Systolic blood pressure 2024-12-31 19:03:00 113 mm[Hg] [facility] Diastolic blood pressure 2024-12-31 19:03:00 75 mm[Hg] [facility] Heart rate 2024-12-31 19:03:00 92 /min Unive [facility] Body temperature 2024-12-31 19:03:00 36.78 Eryn [facility] Body height 2024-12-31 19:03:00 157.5 cm [facility] Body weight 2024-12-31 19:03:00 82.464 kg [facility] BMI 2024-12-31 19:03:00 33.25 kg/m2 [facility] Systolic blood pressure 2024-11-16 04:17:00 117 mm[Hg] [facility] Diastolic blood pressure 2024-11-16 04:17:00 71 mm[Hg] [facility] Heart rate 2024-11-16 04:17:00 93 /min Unive [facility] Body temperature 2024-11-16 04:17:00 37 Eryn [facility] Respiratory rate 2024-11-16 04:17:00 16 /min [facility] Oxygen saturation in Arterial blood by Pulse oximetry 2024-11-16 04:17:00 97 /min [facility] Body height 2024-11-16 00:51:00 157.5 cm [facility] Body weight 2024-11-16 00:51:00 77.111 kg [facility] BMI 2024-11-16 00:51:00 31.09 kg/m2 [facility] Systolic blood pressure 2024-10-17 20:20:00 119 mm[Hg] [facility] Diastolic blood pressure 2024-10-17 20:20:00 69 mm[Hg] [facility] Heart rate 2024-10-17 20:20:00 76 /min Unive [facility] Body temperature 2024-10-17 20:20:00 36.56 Eryn [facility] Respiratory rate 2024-10-17 20:20:00 18 /min [facility] Body weight 2024-10-17 20:20:00 76.023 kg [facility] BMI 2024-10-17 20:20:00 30.65 kg/m2 [facility] Systolic blood pressure 2024-10-03 07:35:00 122 mm[Hg] [facility] Diastolic blood pressure 2024-10-03 07:35:00 73 mm[Hg] [facility] Heart rate 2024-10-03 07:35:00 83 /min Unive [facility] Body temperature 2024-10-03 07:35:00 36.89 Eryn [facility] Respiratory rate 2024-10-03 07:35:00 16 /min [facility] Oxygen saturation in Arterial blood by Pulse oximetry 2024-10-03 07:35:00 99 /min [facility] Body height 2024-10-03 06:04:00 157.5 cm [facility] Body weight 2024-10-03 06:04:00 72.576 kg [facility] BMI 2024-10-03 06:04:00 29.26 kg/m2 [facility] Systolic blood pressure 2024-09-04 17:10:00 121 mm[Hg] [facility] Diastolic blood pressure 2024-09-04 17:10:00 80 mm[Hg] [facility] Heart rate 2024-09-04 17:10:00 85 /min Unive [facility] Body temperature 2024-09-04 17:10:00 36.67 Eryn [facility] Respiratory rate 2024-09-04 17:10:00 18 /min [facility] Body height 2024-09-04 17:10:00 157.5 cm [facility] Body weight 2024-09-04 17:10:00 72.666 kg [facility] BMI 2024-09-04 17:10:00 29.30 kg/m2 [facility] Systolic blood pressure 2024-05-26 19:52:00 109 mm[Hg] [facility] Diastolic blood pressure 2024-05-26 19:52:00 71 mm[Hg] [facility] Heart rate 2024-05-26 19:52:00 70 /min Unive [facility] Body height 2024-05-26 19:52:00 160 [facility] 2024-05-26 19:52:00 74.027 kg [facility] BMI 2024-05-26 19:52:00 28.91 kg/m2 [facility] Systolic blood pressure 2024-03-31 14:03:00 144 mm[Hg] [facility] Diastolic blood pressure 2024-03-31 14:03:00 98 mm[Hg] [facility] Heart rate 2024-03-31 14:02:00 78 /min Unive [facility] Body height 2024-03-31 14:02:00 160 cm [facility] Body weight 2024-03-31 14:02:00 73.664 kg [facility] BMI 2024-03-31 14:02:00 28.77 kg/m2 [facility] Systolic blood pressure 2024-03-03 21:05:00 105 mm[Hg] [facility] Diastolic blood pressure 2024-03-03 21:05:00 70 mm[Hg] [facility] Heart rate 2024-03-03 21:05:00 74 /min Unive [facility] Body temperature 2024-03-03 21:05:00 36.17 Eryn [facility] Respiratory rate 2024-03-03 21:05:00 18 /min [facility] Body height 2024-03-03 21:05:00 160 cm [facility] Body weight 2024-03-03 21:05:00 76.658 kg [facility] BMI 2024-03-03 21:05:00 29.94 kg/m2 [facility] Systolic blood pressure 2024-01-31 18:38:00 126 mm[Hg] [facility] Diastolic blood pressure 2024-01-31 18:38:00 79 mm[Hg] [facility] Heart rate 2024-01-31 18:38:00 91 /min Unive [facility] Body temperature 2024-01-31 18:38:00 36.33 Eryn [facility] Body height 2024-01-31 18:38:00 160 cm [facility] Body weight 2024-01-31 18:38:00 79.924 kg [facility] BMI 2024-01-31 18:38:00 31.21 kg/m2 [facility] Systolic blood pressure 2024-01-24 16:15:00 126 mm[Hg] [facility] Diastolic blood pressure 2024-01-24 16:15:00 75 mm[Hg] [facility] Heart rate 2024-01-24 16:15:00 74 /min Unive [facility] Body temperature 2024-01-24 16:15:00 36.72 Eryn [facility] Respiratory rate 2024-01-24 16:15:00 16 /min [facility] Oxygen saturation in Arterial blood by Pulse oximetry 2024-01-24 16:15:00 100 /min [facility] Body height 2024-01-23 10:45:00 160 cm [facility] Systolic blood pressure 2024-01-23 14:30:00 93 mm[Hg] [facility] Diastolic blood pressure 2024-01-23 14:30:00 65 mm[Hg] [facility] Heart rate 2024-01-23 14:30:00 72 /min Unive [facility] Oxygen saturation in Arterial blood by Pulse oximetry 2024-01-23 14:30:00 99 /min [facility] Body temperature 2024-01-23 14:05:00 36 Eryn [facility] Respiratory rate 2024-01-23 14:05:00 16 /min [facility] Body height 2024-01-23 10:45:00 160 cm [facility] Systolic blood pressure 2024-01-17 13:30:00 112 mm[Hg] [facility] Diastolic blood pressure 2024-01-17 13:30:00 72 mm[Hg] [facility] Heart rate 2024-01-17 13:30:00 89 /min Unive [facility] Body temperature 2024-01-17 13:30:00 36.67 Eryn [facility] Respiratory rate 2024-01-17 13:30:00 18 /min [facility] Body height 2024-01-17 13:30:00 160 cm [facility] Body weight 2024-01-17 13:30:00 86.728 kg [facility] BMI 2024-01-17 13:30:00 33.87 kg/m2 [facility] Systolic blood pressure 2024-01-11 02:30:00 122 mm[Hg] [facility] Diastolic blood pressure 2024-01-11 02:30:00 77 mm[Hg] [facility] Heart rate 2024-01-11 02:30:00 82 /min Unive [facility] Oxygen saturation in Arterial blood by Pulse oximetry 2024-01-11 02:30:00 100 /min [facility] Body temperature 2024-01-11 00:08:00 36.83 Eryn [facility] Respiratory rate 2024-01-10 23:47:00 22 /min [facility] Body weight 2024-01-10 23:47:00 86.728 kg [facility] BMI 2024-01-10 23:47:00 33.87 kg/m2 [facility] Systolic blood pressure 2024-01-10 13:17:00 117 mm[Hg] [facility] Diastolic blood pressure 2024-01-10 13:17:00 73 mm[Hg] [facility] Heart rate 2024-01-10 13:17:00 90 /min Unive [facility] Body temperature 2024-01-10 13:17:00 36.94 Eryn [facility] Body weight 2024-01-10 13:17:00 86.093 kg [facility] BMI 2024-01-10 13:17:00 33.62 kg/m2 [facility] Systolic blood pressure 2024-01-03 19:43:00 125 mm[Hg] [facility] Diastolic blood pressure 2024-01-03 19:43:00 72 mm[Hg] [facility] Heart rate 2024-01-03 19:43:00 90 /min Unive [facility] Body temperature 2024-01-03 19:43:00 37.22 Eryn [facility] Body weight 2024-01-03 19:43:00 85.458 kg [facility] BMI 2024-01-03 19:43:00 33.37 kg/m2 [facility] Heart rate 2023-12-31 22:15:00 85 /min Unive [facility] Oxygen saturation in Arterial blood by Pulse oximetry 2023-12-31 22:15:00 97 /min [facility] Systolic blood pressure 2023-12-31 22:00:00 106 mm[Hg] [facility] Diastolic blood pressure 2023-12-31 22:00:00 59 mm[Hg] [facility] Body temperature 2023-12-31 19:00:00 36.89 Eryn [facility] Systolic blood pressure 2023-12-20 15:26:00 109 mm[Hg] [facility] Diastolic blood pressure 2023-12-20 15:26:00 73 mm[Hg] [facility] Heart rate 2023-12-20 15:26:00 104 /min [facility] Body temperature 2023-12-20 15:26:00 36.83 Eryn [facility] Respiratory rate 2023-12-20 15:26:00 18 /min [facility] Body height 2023-12-20 15:26:00 160 cm [facility] Body weight 2023-12-20 15:26:00 83.643 kg [facility] BMI 2023-12-20 15:26:00 32.66 kg/m2 [facility] Systolic blood pressure 2023-12-13 16:24:00 130 mm[Hg] [facility] Diastolic blood pressure 2023-12-13 16:24:00 81 mm[Hg] [facility] Heart rate 2023-12-13 16:24:00 98 /min Unive [facility] Body temperature 2023-12-13 16:24:00 37.22 Eryn [facility] Respiratory rate 2023-12-13 16:24:00 22 /min [facility] Body height 2023-12-13 16:24:00 160 cm [facility] Body weight 2023-12-13 16:24:00 83.008 kg [facility] BMI 2023-12-13 16:24:00 32.42 kg/m2 [facility] Oxygen saturation in Arterial blood by Pulse oximetry 2023-12-13 16:24:00 100 /min [facility] Systolic blood pressure 2023-12-05 16:16:00 111 mm[Hg] [facility] Diastolic blood pressure 2023-12-05 16:16:00 75 mm[Hg] [facility] Heart rate 2023-12-05 16:16:00 100 /min Unive [facility] Body temperature 2023-12-05 16:16:00 36.61 Eryn [facility] Body height 2023-12-05 16:16:00 160 cm [facility] Body weight 2023-12-05 16:16:00 83.19 kg [facility] BMI 2023-12-05 16:16:00 32.49 kg/m2 [facility] Heart rate 2023-11-24 03:30:00 86 /min Unive [facility] Oxygen saturation in Arterial blood by Pulse oximetry 2023-11-24 03:30:00 98 /min [facility] Systolic blood pressure 2023-11-24 02:19:00 120 mm[Hg] [facility] Diastolic blood pressure 2023-11-24 02:19:00 77 mm[Hg] [facility] Body temperature 2023-11-24 02:19:00 37.06 Eryn [facility] Respiratory rate 2023-11-24 02:19:00 20 /min [facility] Body height 2023-11-24 02:19:00 160 cm [facility] Body weight 2023-11-24 02:19:00 81.647 kg [facility] BMI 2023-11-24 02:19:00 31.89 kg/m2 [facility] Systolic blood pressure 2023-11-21 17:08:00 107 mm[Hg] [facility] Diastolic blood pressure 2023-11-21 17:08:00 76 mm[Hg] [facility] Heart rate 2023-11-21 17:08:00 113 /min [facility] Body temperature 2023-11-21 17:08:00 36.5 Eryn [facility] Respiratory rate 2023-11-21 17:08:00 18 /min [facility] Body height 2023-11-21 17:08:00 160 cm [facility] Body weight 2023-11-21 17:08:00 81.012 kg [facility] BMI 2023-11-21 17:08:00 31.64 kg/m2 [facility] Oxygen saturation in Arterial blood by Pulse oximetry 2023-11-21 17:08:00 98 /min [facility] Systolic blood pressure 2023-11-07 21:48:00 107 mm[Hg] [facility] Diastolic blood pressure 2023-11-07 21:48:00 69 mm[Hg] [facility] Heart rate 2023-11-07 21:48:00 89 /min Unive [facility] Body temperature 2023-11-07 21:48:00 36.78 Eryn [facility] Respiratory rate 2023-11-07 21:48:00 18 /min [facility] Body height 2023-11-07 21:48:00 160 cm [facility] Body weight 2023-11-07 21:48:00 82.01 kg [facility] BMI 2023-11-07 21:48:00 32.03 kg/m2 [facility] Systolic blood pressure 2023-10-11 22:45:00 110 mm[Hg] [facility] Diastolic blood pressure 2023-10-11 22:45:00 68 mm[Hg] [facility] Heart rate 2023-10-11 22:45:00 109 /min Unive [facility] Body temperature 2023-10-11 22:45:00 36.83 Eryn [facility] Respiratory rate 2023-10-11 22:45:00 20 /min [facility] Oxygen saturation in Arterial blood by Pulse oximetry 2023-10-11 22:45:00 99 /min [facility] Systolic blood pressure 2023-10-10 20:18:00 125 mm[Hg] [facility] Diastolic blood pressure 2023-10-10 20:18:00 80 mm[Hg] [facility] Heart rate 2023-10-10 20:18:00 131 /min Unive [facility] Body temperature 2023-10-10 20:18:00 38.06 Eryn [facility] Respiratory rate 2023-10-10 20:18:00 17 /min [facility] Body height 2023-10-10 20:18:00 162.6 cm [facility] Body weight 2023-10-10 20:18:00 77.202 kg [facility] BMI 2023-10-10 20:18:00 29.21 kg/m2 [facility] Systolic blood pressure 2023-09-12 16:19:00 110 mm[Hg] [facility] Diastolic blood pressure 2023-09-12 16:19:00 74 mm[Hg] [facility] Heart rate 2023-09-12 16:19:00 99 /min Unive [facility] Body temperature 2023-09-12 16:19:00 37 Eryn [facility] Body height 2023-09-12 16:19:00 160 cm [facility] Body weight 2023-09-12 16:19:00 75.66 kg [facility] BMI 2023-09-12 16:19:00 29.55 kg/m2 [facility] Systolic blood pressure 2023-08-29 15:39:00 132 mm[Hg] [facility] Diastolic blood pressure 2023-08-29 15:39:00 72 mm[Hg] [facility] Heart rate 2023-08-29 15:39:00 89 /min Unive [facility] Body temperature 2023-08-29 15:39:00 36.39 Eryn [facility] Body height 2023-08-29 15:39:00 160 [facility] 2023-08-29 15:39:00 74.753 kg [facility] BMI 2023-08-29 15:39:00 29.19 [facility]m2 [facility] pressure 2023-08-03 16:38:00 111 mm[Hg] [facility] Diastolic blood pressure 2023-08-03 16:38:00 72 mm[Hg] [facility] Heart rate 2023-08-03 16:38:00 73 /min Unive [facility] Body temperature 2023-08-03 16:38:00 36.72 Eryn [facility] Respiratory rate 2023-08-03 16:38:00 16 /min [facility] Body height 2023-08-03 16:38:00 160 cm [facility] weight 2023-08-03 16:38:00 70.308 kg [facility] BMI 2023-08-03 16:38:00 27.46 kg[facility]m2 [facility] pressure 2023-07-06 13:39:00 111 mm[Hg] [facility] Diastolic blood pressure 2023-07-06 13:39:00 75 mm[Hg] [facility] Heart rate 2023-07-06 13:39:00 77 /min [facility] 2023-07-06 13:39:00 18 /min [facility] Body height 2023-07-06 13:39:00 160 cm [facility] Body weight 2023-07-06 13:39:00 68.947 kg [facility] 2023-07-06 13:39:00 26.93 [facility]2 [facility] 2023-06-08 19:35:00 108 mm[Hg] [facility] Diastolic blood pressure 2023-06-08 19:35:00 69 mm[Hg] [facility] Heart rate 2023-06-08 19:35:00 91 /min Unive [facility] Respiratory rate 2023-06-08 19:35:00 18 /min [facility] Body height 2023-06-08 19:35:00 160 cm [facility] weight 2023-06-08 19:35:00 67.586 kg [facility] BMI 2023-06-08 19:35:00 26.39 kg/m2 [facility] Systolic blood pressure 2023-05-17 16:40:00 112 mm[Hg] [facility] Diastolic blood pressure 2023-05-17 16:40:00 72 mm[Hg] [facility] Heart rate 2023-05-17 16:40:00 89 /min Unive [facility] Respiratory rate 2023-05-17 16:40:00 18 /min [facility] Body height 2023-05-17 16:40:00 160 cm [facility] Body weight 2023-05-17 16:40:00 65.318 kg [facility] BMI 2023-05-17 16:40:00 25.51 kg/m2 [facility] Systolic blood pressure 2023-04-11 15:23:00 108 mm[Hg] [facility] Diastolic blood pressure 2023-04-11 15:23:00 71 mm[Hg] [facility] Heart rate 2023-04-11 15:23:00 77 /min Unive [facility] Body temperature 2023-04-11 15:23:00 36.78 Eryn [facility] Respiratory rate 2023-04-11 15:23:00 18 /min [facility] Body height 2023-04-11 15:23:00 160 cm [facility] weight 2023-04-11 15:23:00 63.866 kg [facility] BMI 2023-04-11 15:23:00 24.94 kg/m2 [facility] Oxygen saturation in Arterial blood by Pulse oximetry 2023-04-11 15:23:00 98 /min [facility] Systolic blood pressure 2023-03-21 16:08:00 97 mm[Hg] [facility] Diastolic blood pressure 2023-03-21 16:08:00 63 mm[Hg] [facility] Heart rate 2023-03-21 16:08:00 75 /min Unive [facility] Body temperature 2023-03-21 16:08:00 36.67 Eryn [facility] Respiratory rate 2023-03-21 16:08:00 16 /min [facility] Body weight 2023-03-21 16:08:00 65.318 kg [facility] BMI 2023-03-21 16:08:00 26.34 kg/m2 [facility] Oxygen saturation in Arterial blood by Pulse oximetry 2023-03-21 16:08:00 98 /min [facility] Systolic blood pressure 2023-02-06 21:38:00 124 mm[Hg] [facility] Diastolic blood pressure 2023-02-06 21:38:00 73 mm[Hg] [facility] Heart rate 2023-02-06 21:38:00 88 /min Unive [facility] Body temperature 2023-02-06 21:38:00 37.33 Eryn [facility] Respiratory rate 2023-02-06 21:38:00 17 /min [facility] Body weight 2023-02-06 21:38:00 64.501 kg [facility] BMI 2023-02-06 21:38:00 26.01 kg/m2 [facility] Oxygen saturation in Arterial blood by Pulse oximetry 2023-02-06 21:38:00 99 /min [facility] Systolic blood pressure 2022-05-19 19:39:00 114 mm[Hg] [facility] Diastolic blood pressure 2022-05-19 19:39:00 74 mm[Hg] [facility] Heart rate 2022-05-19 19:39:00 70 /min [facility] Respiratory rate 2022-05-19 19:39:00 20 /min [facility] Body height 2022-05-19 19:39:00 157.5 cm [facility] Body weight 2022-05-19 19:39:00 62.37 kg [facility] BMI 2022-05-19 19:39:00 25.15 kg/m2 [facility] Oxygen saturation in Arterial blood by Pulse oximetry 2022-05-19 19:39:00 94 /min [facility] Procedures Procedure Date / Time Performed Performing Clinician Source FLU VACC ([id number]), 6 MO-64 YRS, .5ML, IM, TIV (FLUCELVAX) 2024-12-31 19:02:26 Itz Rob [facility] CT ABDOMEN PELVIS WO CONTRAST 2024-11-16 02:51:11 Areli Jenkins [facility] POCT TEST 2024-11-16 01:41:00 Roderick Jenkins [facility] URINALYSIS 2024-11-16 01:39:00 [facility] COVID NAAT 2024-11-16 01:39:00 Areli Jenkins [facility] POCT TEST 2024-10-17 20:37:00 Itz Rob [facility] COMP. METABOLIC PANEL ([id number]) 2024-10-03 06:21:00 William Lopez [facility] CBC WITH DIFF 2024-10-03 06:21:00 [facility] UR[facility]YSIS 2024-10-03 06:21:00 [facility]/B RSV COVID NAAT 2024-10-03 06:21:00 William Lopez [facility] POCT TEST 2024-10-03 06:20:00 William Lopez [facility] POCT URINALYSIS W/O SPECIFIC GRAVITY 2024-09-04 17:13:00 VinicioLaron [facility] POCT URINALYSIS W/O SPECIFIC GRAVITY 2024-05-26 00:00:00 VinicioLaron [facility] POCT TEST 2024-03-03 00:00:00 VinicioLaron [facility] DME/SUPPLY JUSTIFICATION 2024-01-28 14:34:30 Doc tor Unassigned, Umbarger [facility] DME/SUPPLY JUSTIFICATION 2024-01-28 14:19:20 Doc tor Unassigned, Umbarger [facility] CBC WITH DIFF 2024-01-24 08:56:[address] [facility] CBC WITH DIFF 2024-01-24 08:56:[address] [facility] SECTION 2024-01-23 12:37:00 Vinicio Laron [facility] SECTION 2024-01-23 12:37:00 VinicioLaron [facility] [facility] CBC WITH DIFF 2024-01-23 10:55:[address] [facility] HEPATITIS B SURFACE ANTIGEN 2024-01-23 10:55:00 Vinicio Laron [facility] HB ABO GROUPING 2024-01-23 10:55:00 Vinicio Laron [facility] RHO (D) IMMUNE GLOBULIN 2024-01-23 10:55:00 Vinicio Laron [facility] ADC OR ROGELIO ONLY - RPR 2024-01-23 10:55:00 Vinicio Alexeyjorge faustin [facility] HIV 1/2 AG-AB WITH REFLEX 2024-01-23 10:55:00 Lissett Mooney [facility] CBC WITH DIFF 2024-01-23 10:55:[address] [facility] HEPATITIS B SURFACE ANTIGEN 2024-01-23 10:55:00 [facility] 2024-01-23 10:55:00 Vinicio [facility] RHO (D) IMMUNE GLOBULIN 2024-01-23 10:55:00 MooneyLaron Pietro [facility] ADC OR ROGELIO ONLY - RPR 2024-01-23 10:55:00 VinicioLissett [facility] HIV 1/2 AG-AB WITH REFLEX 2024-01-23 10:55:00 MooneyLissett [facility] DME/SUPPLY JUSTIFICATION 2024-01-22 16:18:51 Doc tor Unassigned, Umbarger [facility] POCT URINALYSIS W/O SPECIFIC GRAVITY 2024-01-17 00:00:00 MooneyLaron Pietro [facility] DME/SUPPLY JUSTIFICATION 2024-01-14 17:15:13 Doc tor Unassigned, Umbarger [facility] URINALYSIS 2024-01-11 01:24:00 Magdalene Lozoya [facility] POCT URINALYSIS W/O SPECIFIC GRAVITY 2024-01-10 00:00:00 VinicioLaron Pietro [facility] DSU PRE-OP 2024-01-04 14:19:51 Doctor Unass igned, Umbarger [facility] >14 WEEKS US LIMITED 2024-01-03 22:02:26 VinicioLaron Pietro [facility] POCT URINALYSIS W/O SPECIFIC GRAVITY 2024-01-03 00:00:00 VinicioLaron Pietro [facility] NON-STRESS TEST 2023-12-31 22:19:22 VinicioLaron Jacquie [facility] SECOND AND THIRD TRIMESTER ULTRASOUND 2023-12-24 20:08:00 Vinicio Laron Pietro [facility] POCT URINALYSIS W/O SPECIFIC GRAVITY 2023-12-20 15:27:00 VinicioLaron Pietro [facility] ASSIGNMENT OF BENEFITS 2023-12-13 17:14:39 Docto r Unassigned, Umbarger [facility] CONSENT/REFUSAL FOR DIAGNOSIS AND TREATMENT 2023-12-13 16:12:06 Doctor Unassigned, Umbarger [facility] POCT URINALYSIS W/O SPECIFIC GRAVITY 2023-12-05 00:00:00 Vinicio Laron Pietro [facility] COMP. METABOLIC PANEL (48329) 2023-11-24 02:40:00 Moise Walker [facility] CBC WITH DIFF 2023-11-24 02:40:00 Moise Walker [facility] URINALYSIS 2023-11-24 02:40:00 Moise Walker [facility] CONSENT/REFUSAL FOR DIAGNOSIS AND TREATMENT 2023-11-24 02:12:30 Doctor Unassigned, Umbarger [facility] SECOND AND THIRD TRIMESTER ULTRASOUND 2023-11-23 15:32:00 Laron Mooney [facility] DME/SUPPLY JUSTIFICATION 2023-11-22 06:01:00 Doc tor Unassigned, Umbarger [facility] POCT URINALYSIS W/O SPECIFIC GRAVITY 2023-11-21 00:00:00 Laron Mooney [facility] TDAP VACCINE, >11 YRS, IM 2023-11-07 21:58:11 Lissett Mooney [facility] POCT URINALYSIS W/O SPECIFIC GRAVITY 2023-11-07 00:00:00 Laron Mooney [facility] SECOND AND THIRD TRIMESTER ULTRASOUND 2023-11-02 20:03:00 Laron Mooney [facility] BASIC METABOLIC PANEL (NA, K, CL, CO2, GLUCOSE, BUN, CREATININE, CA) 2023-10-11 18:07:00 Laron Mooney [facility] BASIC METABOLIC PANEL (NA, K, CL, CO2, GLUCOSE, BUN, CREATININE, CA) 2023-10-11 09:49:00 Laron Mooney [facility] CBC WITH DIFF 2023-10-11 09:49:00 Laron Mooney [facility] NON-STRESS TEST 2023-10-11 00:24:07 Laron Mooney [facility] AMYLASE 2023-10-10 21:51:00 Laron Mooney [facility] LIPASE 2023-10-10 21:51:00 Laron Mooney [facility] COMP. METABOLIC PANEL (52860) 2023-10-10 21:51:00 Laron Mooney [facility] CBC WITH DIFF 2023-10-10 21:51:00 Laron Mooney [facility] URINALYSIS 2023-10-10 21:51:00 Laron Mooney [facility] RAPID INFLUENZA A/B 2023-10-10 21:51:00 Laron Mooney [facility] COVID-19 (ID NOW RAPID TESTING) 2023-10-10 21:51:00 Laron Mooney [facility] LAB ONLY COVID INTERPRETATION 2023-10-10 21:51:00 Laron Mooney [facility] CONSENT/REFUSAL FOR DIAGNOSIS AND TREATMENT 2023-10-10 20:45:21 Doctor Unassigned, Umbarger [facility] ASSIGNMENT OF BENEFITS 2023-10-10 20:44:44 Docto r Unassigned, Umbarger [facility] POCT URINALYSIS W/O SPECIFIC GRAVITY 2023-10-10 00:00:00 aLron Mooney [facility] SECOND AND THIRD TRIMESTER ULTRASOUND 2023-10-05 14:22:00 Laron Mooney [facility] MATERNAL SERUM SCREEN 1-Q 2023-09-12 16:35:00 Lissett Mooney [facility] SECOND AND THIRD TRIMESTER ULTRASOUND 2023-09-05 17:18:00 Laron Mooney [facility] POCT URINALYSIS W/O SPECIFIC GRAVITY 2023-08-29 00:00:00 Laron Mooney [facility] POCT URINALYSIS W/O SPECIFIC GRAVITY 2023-08-03 00:00:00 Laron Mooney [facility] HB ABO GROUPING 2023-07-06 16:53:00 Laron Mooney [facility] GLUCOSE 1 HOUR POST PRANDIAL 2023-07-06 16:06:00 Laron Mooney [facility] CBC WITH DIFF 2023-07-06 16:06:00 Laron Mooney [facility] FLU VACC (), 6 MO-64 YRS, .5ML, IM, QUAD (FLUCELVAX) 2023-07-06 13:41:16 Laron Mooney [facility] SCANNED LAB RESULTS 2023-07-06 05:01:00 Doctor U nassigned, Umbarger [facility] POCT URINALYSIS W/O SPECIFIC GRAVITY 2023-07-06 00:00:00 Laron Mooney [facility] US OB TRANSVAGINAL 2023-06-08 20:12:19 Laron Mooney U [facility] ULTRASOUND 2023-06-08 05:01:00 Doc tor Unassigned, Umbarger [facility] POCT URINALYSIS W/O SPECIFIC GRAVITY 2023-06-08 00:00:00 Laron Mooney [facility] TOTAL BETA HCG ASSAY 2023-05-24 15:16:00 Garret Araujo [facility] POCT TEST 2023-05-17 00:00:00 Luis Araujo [facility] DISCLOSURE AND CONSENT, MEDICAL AND SURGICAL PROCEDURES 2023-04-11 05:01:00 Doctor Unassigned, Umbarger [facility] ASSIGNMENT OF BENEFITS 2023-02-06 21:31:42 Docto r Unassigned, Umbarger [facility] Encounters Start Date/Time End Date/Time Encounter Type Admission Type Attending [facility] Care Department Encounter ID Source 2024-01-17 09:02:01 Outpatient P LARON MOONEY [facility] [id number] [facility] 2024-01-10 21:58:46 Outpatient X [facility] [id number] [facility] 2023-12-31 18:04:16 Outpatient P [facility] [id number] [facility] 2023-10-11 19:09:25 Outpatient P [facility] [id number] [facility] 2021-12-31 00:18:56 Outpatient X [facility] [id number] [facility] 2021-07-30 15:52:47 Outpatient P LARON MOONEY [facility] [id number] [facility] 2021-07-30 14:32:12 Emergency [facility] [id number] [facility] 2021-07-29 22:12:35 Emergency [facility] [id number] [facility] 2025-02-24 14:30:00 2025-02-24 14:30:00 Outpatient R MOONEY [facility] [id number] [facility] 2025-01-07 00:00:00 2025-01-07 14:06:08 Telephone Laron Mooney Pietro [facility] PROFESS[facility] NAL BUILD[facility] 1.2.840.114 350.1.13.10 4.2.7.2.686 [id number] 134 [id number] [facility] 2025-01-02 14:00:00 2025-01-02 14:00:00 Outpatient R [facility]ICA [facility] [id number] [facility] 2024-12-31 13:45:00 2024-12-31 14:21:45 Outpatient R ITZ [facility] [id number] [facility] 2024-12-31 13:45:00 2024-12-31 14:21:45 Office Visit Itz [facility] 1.2.840.114 350.1.13.10 4.2.7.2.686 [id number] [facility] 2024-12-17 11:00:00 2024-12-17 11:30:28 Outpatient R ITZ [facility] [id number] [facility] 2024-11-15 18:52:00 2024-11-15 22:30:00 Emergency X ARELI JENKINS [facility] [id number] [facility] 2024-11-15 18:52:00 2024-11-15 22:30:00 Emergency Areli Jenkins [facility] 1.2.840.114 350.1.13.10 4.2.7.2.686 [id number] [facility] 2024-10-17 00:00:00 2024-11-15 06:17:04 Orders Only Katlin Mills [place] S [facility] 1.2.840.114 350.1.13.10 4.2.7.2.686 [id number] 134 [id number] [facility] 2024-01-04 00:00:00 2024-11-15 02:27:05 Orders Only Doctor Unassigned, Umbarger Doctor Unassigned, Umbarger [facility] 1.2.840.114 350.1.13.10 4.2.7.2.686 [id number] [facility] 2024-01-14 00:00:00 2024-11-15 02:20:31 Orders Only Doctor Unassigned, Umbarger Doctor Unassigned, Umbarger [facility] 1.2.840.114 350.1.13.10 4.2.7.2.686 [id number] [facility] 2024-01-22 00:00:00 2024-11-15 02:14:22 Orders Only Doctor Unassigned, Umbarger Doctor Unassigned, Umbarger [facility] 1.2.840.114 350.1.13.10 4.2.7.2.686 [id number] [facility] 2024-01-28 00:00:00 2024-11-15 02:09:40 Orders Only Doctor Unassigned, Umbarger Doctor Unassigned, Umbarger [facility] 1.2.840.114 350.1.13.10 4.2.7.2.686 [id number] [facility] 2024-01-28 00:00:00 2024-11-15 02:09:18 Orders Only Doctor Unassigned, Umbarger Doctor Unassigned, Umbarger [facility] 1.2.840.114 350.1.13.10 4.2.7.2.686 [id number] [facility] 2024-10-17 15:30:00 2024-10-17 15:45:00 Process Artist Visit 2, Adc Lab Jennifer Weldon Kim 2, Adc Lab [facility] 1..840.114 350.1.13.10 4.2.7.2.686 [id number] [facility] 2024-10-17 15:30:00 2024-10-17 15:30:00 Outpatient R ITZ [facility] [id number] [facility] 2024-10-17 13:30:00 2024-10-17 14:40:50 Office Visit Itz Rob Vivian L [facility] 1..840.114 350.1.13.10 4.2.7.2.686 [id number] 134 [id number] [facility] 2024-09-03 00:00:00 2024-10-04 18:16:11 Patient Secure Msg Doctor Unassigned, Umbarger Doctor Unassigned, Umbarger [facility] .840.114 350.1.13.10 4.2.7.2.686 [id number] 134 [id number] [facility] 2024-10-03 00:09:00 2024-10-03 01:37:00 Emergency X WILLIAM LOPEZ BRENT [facility] [id number] [facility] 2024-10-03 00:09:00 2024-10-03 01:37:00 Emergency William Lopez [facility] 1.840.114 350.1.13.10 4.2.7.2.686 [id number] [facility] 2024-09-07 00:00:00 2024-09-07 10:58:27 Case Management Laron Mooney [facility] 1..840.114 350.1.13.10 4.2.7.2.686 [id number] 134 [id number] [facility] 2024-09-04 14:30:00 2024-09-04 14:30:00 Outpatient R [facility], MAGDALENE [facility], [facility]DALENE [facility] [id number] [facility] 2024-09-04 10:45:00 2024-09-04 11:22:25 Outpatient R LARON MOONEY [facility] [id number] [facility] 2024-09-04 10:45:00 2024-09-04 11:22:25 Office Visit Laron Mooney [facility] 1..840.114 350.1.13.10 4.2.7.2.686 [id number] 134 [id number] [facility] 2024-09-02 10:00:00 2024-09-02 10:00:00 Outpatient R LIANE [facility] [id number] [facility] 2024-07-01 13:00:00 2024-07-01 13:00:00 Outpatient R VINICIO [facility] [id number] [facility] 2024-05-28 00:00:00 2024-06-28 18:18:32 Patient Secure Msg Doctor Unassigned, Umbarger Doctor Unassigned, Umbarger [facility] 1..840.114 350.1.13.10 4.2.7.2.686 [id number] 134 [id number] [facility] 2024-05-28 00:00:00 2024-05-28 12:56:46 Case Management Laron Mooney [facility] 1.2.840.114 350.1.13.10 4.2.7.2.686 [id number] 134 [id number] [facility] 2024-05-26 16:45:00 2024-05-26 17:00:00 Process Artist Visit Pob, Adc Lab Main Laron Mooney Pob, Adc Lab Main [facility]ILD[facility] 1.2.840.114 350.1.13.10 4.2.7.2.686 [id number] [facility] 2024-05-26 16:45:00 2024-05-26 16:45:00 Out[facility] [id number] [facility] 2024-05-26 14:30:00 2024-05-26 15:06:18 Office Visit Laron Mooney [facility] 1.2.840.114 350.1.13.10 4.2.7.2.686 [id number] 134 [id number] [facility] 2024-03-31 09:00:00 2024-03-31 09:14:25 Outpatient [facility] [id number] [facility] 2024-03-31 09:00:00 2024-03-31 09:14:25 Office Visit Laron Mooney [facility] 1.2.840.114 350.1.13.10 4.2.7.2.686 [id number] 134 [id number] [facility] 2024-03-04 16:03:32 2024-03-04 16:03:32 Outpatient [facility] [id number] Jesus Cunningham 2024-03-03 16:00:00 2024-03-03 16:32:28 Routine Visit Laron Mooney [facility] 1.2.840.114 350.1.13.10 4.2.7.2.686 [id number] 134 [id number] [facility] 2024-03-03 16:00:00 2024-03-03 16:32:28 Outpatient R LARON MOONEY [facility] [id number] [facility] 2024-02-28 13:00:00 2024-02-28 13:00:00 Outpatient R LARON MOONEY [facility] [id number] [facility] 2024-02-04 10:15:00 2024-02-04 10:15:00 Outpatient R LARON MOONEY [facility] [id number] [facility] 2024-01-31 13:15:00 2024-01-31 13:47:36 Outpatient R LARON MOONEY [facility] [id number] [facility] 2024-01-31 13:15:00 2024-01-31 13:47:36 Routine Visit Laron Mooney [facility] NAL BUILD[facility] 1.2.840.114 350.1.13.10 4.2.7.2.686 [id number] 134 [id number] [facility] 2024-01-29 00:00:00 2024-01-29 00:00:00 Telephone Laron Mooney [facility] NAL BUILD[facility] 1.2.840.114 350.1.13.10 4.2.7.2.686 [id number] 134 [id number] [facility] 2024-01-23 05:22:00 2024-01-24 13:50:00 Inpatient P LARON MOONEY [facility] [id number] [facility] 2024-01-23 05:22:00 2024-01-24 13:50:00 Hospital Encounter Laron Mooney [facility] 1.2.840.114 350.1.13.10 4.2.7.2.686 [id number] [facility] 2024-01-24 00:00:00 2024-01-24 00:00:00 Encounter [facility] 1.2.840.114 350.1.13.10 4.2.7.2.686 [id number] [facility] 2024-01-24 00:00:00 2024-01-24 00:00:00 Telephone Laron Mooney [facility] 1.2.840.114 350.1.13.10 4.2.7.2.686 [id number] 134 [id number] [facility] 2024-01-23 08:00:00 2024-01-23 09:39:00 Surgery Laron Mooney [facility] 1.2.840.114 350.1.13.10 4.2.7.2.686 [id number] [facility] 2024-01-17 08:00:00 2024-01-17 08:43:28 Outpatient R LARON MOONEY [facility] [id number] [facility] 2024-01-17 08:00:00 2024-01-17 08:43:28 Routine Visit Laron Mooney [facility]ILD[facility] 1.2840.114 350.1.13.10 4.2.7.2.686 [id number] 134 [id number] [facility] 2024-01-17 00:00:00 2024-01-17 00:00:00 Patient Secure Msg Vinicio [facility] PROFESSIO NAL BUILDING 1.2.840.114 350.1.13.10 4.2.7.2.686 [id number] [facility] 2024-01-10 18:48:00 2024-01-10 21:50:00 Outpatient X [facility]CR[facility] S, MAGDALENE [facility] S, MAGDALENE [facility] [id number] [facility] 2024-01-10 18:48:00 2024-01-10 21:50:00 Emergency Cummings-Cristhian s, Magdalene [facility] 1.2.840.114 350.1.13.10 4.2.7.2.686 [id number] [facility] 2024-01-10 08:15:00 2024-01-10 08:53:06 Outpatient R LARON MOONEY [facility] [id number] [facility] 2024-01-10 08:15:00 2024-01-10 08:53:06 Routine Visit Laron Mooney [facility] PROFESSIO NAL BUILDING 1.2.840.114 350.1.13.10 4.2.7.2.686 [id number] 134 [id number] [facility] 2024-01-03 15:30:00 2024-01-03 15:45:00 Process Artist Visit 2, [facility] 1.2.840.114 350.1.13.10 4.2.7.2.686 [id number] [facility] 2024-01-03 15:30:00 2024-01-03 15:23:07 Outpatient R LARON MOONEY [facility] [id number] [facility] 2024-01-03 13:30:00 2024-01-03 15:06:37 [facility] 1.2.840.114 350.1.13.10 4.2.7.2.686 [id number] [facility] 2024-01-03 08:30:00 2024-01-03 08:30:00 Outpatient R LARON MOONEY [facility] [id number] [facility] 2024-01-02 00:00:00 2024-01-02 00:00:00 Telephone Laron Mooney [facility] NAL BUILDING 1.2.840.114 350.1.13.10 4.2.7.2.686 [id number] 134 [id number] [facility] 2023-12-31 13:49:00 2023-12-31 17:35:00 Outpatient P LARON MOONEY [facility] [id number] [facility] 2023-12-31 13:49:00 2023-12-31 17:35:00 Hospital Encounter Laron Mooney [facility] 1.2.840.114 350.1.13.10 4.2.7.2.686 [id number] [facility] 2023-12-30 00:00:00 2023-12-30 00:00:00 Patient Secure Msg Laron Mooney [facility] 1..840.114 350.1.13.10 4.2.7.2.686 [id number] 134 [id number] [facility] 2023-12-29 00:00:00 2023-12-29 00:00:00 Patient Secure Msg Laron Mooney [facility] 1..840.114 350.1.13.10 4.2.7.2.686 [id number] 134 [id number] [facility] 2023-12-24 14:30:00 2023-12-24 15:58:45 Outpatient P JOSE NIFANTE [facility]ANN[facility] [id number] [facility] 2023-12-24 14:30:00 2023-12-24 15:58:45 Process Artist Visit Ultrasound, Jose Catalan [facility] 1.840.114 350.1.13.10 4.2.7.2.686 [id number] [facility] 2023-12-21 00:00:00 2023-12-21 00:00:00 Patient Secure Msg Doctor Unassigned, Umbarger [facility] 1..840.114 350.1.13.10 4.2.7.2.686 [id number] [facility] 2023-12-20 11:15:00 2023-12-20 11:30:00 Process Artist Visit 2, Adc Lab Laron Mooney [facility] PROFESSIO [facility] 1.2.840.114 350.1.13.10 4.2.7.2.686 [id number] [facility] 2023-12-20 10:30:00 2023-12-20 10:41:50 Outpatient R LARON MOONEY [facility] [id number] [facility] 2023-12-20 10:30:00 2023-12-20 10:41:50 Routine Visit Laron Mooney [facility] BUILDING 1.2.840.114 350.1.13.10 4.2.7.2.686 [id number] 134 [id number] [facility] 2023-12-13 11:26:00 2023-12-13 12:57:00 Emergency X HERMINIA MILLER [facility] [id number] [facility] 2023-12-13 11:26:00 2023-12-13 12:57:00 Emergency Herminia Miller [facility] 1.2.840.114 350.1.13.10 4.2.7.2.686 [id number] [facility] 2023-12-13 00:00:00 2023-12-13 00:00:00 Telephone Laron Mooney [facility] BUILDING 1.2.840.114 350.1.13.10 4.2.7.2.686 [id number] 134 [id number] [facility] 2023-12-11 00:00:00 2023-12-11 00:00:00 Patient Secure Msg Laron Mooney [facility] 1.2.840.114 350.1.13.10 4.2.7.2.686 [id number] [facility] 2023-12-05 10:30:00 2023-12-05 10:30:00 Routine Visit Laron Mooney [facility] 1..114 350.1.13.10 4.2.7.2.686 [id number] [facility] 2023-12-05 10:30:00 2023-12-05 10:29:45 Outpatient R LARON MOONEY [facility] [id number] [facility] 2023-11-23 20:32:00 2023-11-23 22:12:00 Emergency X SINGER [facility] E[facility] [id number] [facility] 2023-11-23 20:32:00 2023-11-23 22:12:00 Emergency Moise Walker [facility] 1..114 350.1.13.10 4.2.7.2.686 [id number] [facility] 2023-11-23 09:00:00 2023-11-23 10:20:22 Outpatient [facility] [id number] [facility] 2023-11-23 09:00:00 2023-11-23 10:20:22 Process Artist Visit Ultrasound, Larissa Graves [facility] 1.114 350.1.13.10 4.2.7.2.686 [id number] [facility] 2023-11-22 00:00:00 2023-11-22 00:00:00 Telephone Laron Mooney [facility] 1..114 350.1.13.10 4.2.7.2.686 [id number] [facility] 2023-11-22 00:00:00 2023-11-22 00:00:00 Orders Only Doctor Unassigned, [facility] 1..114 350.1.13.10 4.2.7.2.686 [id number] [facility] 2023-11-22 00:00:00 2023-11-22 00:00:00 Patient Secure Msg [facility] 1.2.840.114 350.1.13.10 4.2.7.2.686 [id number] 134 [id number] [facility] 2023-11-21 11:00:00 2023-11-21 11:40:29 Outpatient R [facility] [id number] [facility] 2023-11-21 11:00:00 2023-11-21 11:40:29 Routine Visit Laron Mooney [facility] 1.2.840.114 350.1.13.10 4.2.7.2.686 [id number] 134 [id number] [facility] 2023-11-09 00:00:00 2023-11-09 00:00:00 Telephone Laron Mooney [facility] 1.2.840.114 350.1.13.10 4.2.7.2.686 [id number] 134 [id number] [facility] 2023-11-08 11:00:00 2023-11-08 11:15:00 Process Artist Visit 2, Adc Lab Laron Mooney [facility] 1.2.840.114 350.1.13.10 4.2.7.2.686 [id number] 353 [id number] [facility] 2023-11-08 11:00:00 2023-11-08 11:00:00 Outpatient R [facility] [id number] [facility] 2023-11-08 00:00:00 2023-11-08 00:00:00 Telephone Laron Mooney [facility] 1.2.840.114 350.1.13.10 4.2.7.2.686 [id number] 134 [id number] [facility] 2023-11-08 00:00:00 2023-11-08 00:00:00 Patient Outreach Zayda Curiel Alycia [facility] 1..840.114 350.1.13.10 4.2.7.2.686 [id number] 134 [id number] [facility] 2023-11-08 00:00:00 2023-11-08 00:00:00 Patient Secure Msg Laron Mooney [facility] 1..840.114 350.1.13.10 4.2.7.2.686 [id number] 134 [id number] [facility] 2023-11-07 15:45:00 2023-11-07 16:15:41 Outpatient R [facility] [id number] [facility] 2023-11-07 15:45:00 2023-11-07 16:15:41 Routine Visit Laron Mooney [facility] 1..840.114 350.1.13.10 4.2.7.2.686 [id number] 134 [id number] [facility] 2023-11-02 13:45:00 2023-11-02 14:02:14 Outpatient P LARISSA [facility] [id number] [facility] 2023-11-02 13:45:00 2023-11-02 14:02:14 Process Artist Visit Ultrasound, Larissa Graves [facility] 1..840.114 350.1.13.10 4.2.7.2.686 [id number] 369 [id number] [facility] 2023-10-26 00:00:00 2023-10-26 00:00:00 Patient Secure Msg Laron Mooney [facility] 1.2.840.114 350.1.13.10 4.2.7.2.686 [id number] 134 [id number] [facility] 2023-10-16 00:00:00 2023-10-16 00:00:00 Case Management Laron Mooney [facility] 1.2.840.114 350.1.13.10 4.2.7.2.686 [id number] 134 [id number] [facility] 2023-10-16 00:00:00 2023-10-16 00:00:00 Case Management Laron Mooney [facility] 1.2.840.114 350.1.13.10 4.2.7.2.686 [id number] 134 [id number] [facility] 2023-10-16 00:00:00 2023-10-16 00:00:00 Telephone Laron Mooney [facility] 1.2.840.114 350.1.13.10 4.2.7.2.686 [id number] 134 [id number] [facility] 2023-10-16 00:00:00 2023-10-16 00:00:00 Patient Secure Msg Doctor Unassigned, Umbarger [facility] 1.2.840.114 350.1.13.10 4.2.7.2.686 [id number] 134 [id number] [facility] 2023-10-10 14:44:00 2023-10-11 18:50:00 Outpatient P LARON MOONEY [facility] [id number] [facility] 2023-10-10 14:44:00 2023-10-11 18:50:00 Hospital Encounter Laron Mooney [facility] 1.2.840.114 350.1.13.10 4.2.7.2.686 [id number] [id number] [facility] 2023-10-10 14:15:00 2023-10-10 14:26:31 Outpatient R LARON [facility]ONEY [facility] [id number] [facility] 2023-10-10 14:15:00 2023-10-10 14:26:31 Routine Visit Laron Mooney [facility] 1.2.840.114 350.1.13.10 4.2.7.2.686 [id number] 134 [id number] [facility] 2023-10-05 08:00:00 2023-10-05 08:57:49 Outpatient P NOE [facility]ES [facility] [id number] [facility] 2023-10-05 08:00:00 2023-10-05 08:57:49 Process [facility] 1.2.840.114 350.1.13.10 4.2.7.2.686 [id number] [facility] 2023-10-05 00:00:00 2023-10-05 00:00:00 Telephone Laron Mooney [facility] 1.2.840.114 350.1.13.10 4.2.7.2.686 [id number] 134 [id number] [facility] 2023-10-05 00:00:00 2023-10-05 00:00:00 Patient Secure Msg Laron Mooney [facility] BUILDING 1.2.840.114 350.1.13.10 4.2.7.2.686 [id number] 134 [id number] [facility] 2023-09-26 13:45:00 2023-09-26 13:45:00 Outpatient R [facility]Y [facility] [id number] [facility] 2023-09-12 10:00:00 2023-09-12 10:37:20 Outpatient R LARON [facility]ONEY [facility] [id number] [facility] 2023-09-12 10:00:00 2023-09-12 10:37:20 Routine Visit Laron Mooney [facility] 1.2.840.114 350.1.13.10 4.2.7.2.686 [id number] 134 [id number] [facility] 2023-09-12 00:00:00 2023-09-12 00:00:00 Orders Only Laron Mooney [facility] 1.2.840.114 350.1.13.10 4.2.7.2.686 [id number] [facility] 2023-09-06 00:00:00 2023-09-06 00:00:00 Telephone Laron Mooney [facility] 1.2840.114 350.1.13.10 4.2.7.2.686 [id number] 134 [id number] [facility] 2023-09-05 11:00:00 2023-09-05 11:36:13 Outpatient P JERONIMO LUZ [facility] [id number] [facility] 2023-09-05 11:00:00 2023-09-05 11:36:13 Process Artist Visit Ultrasound, [facility] 1.2840.114 350.1.13.10 4.2.7.2.686 [id number] [facility] 2023-09-05 00:00:00 2023-09-05 00:00:00 Telephone Laron Mooney [facility] 1.2.840.114 350.1.13.10 4.2.7.2.686 [id number] 134 [id number] [facility] 2023-09-05 00:00:00 2023-09-05 00:00:00 Patient Secure Msg Doctor Unassigned, [facility]mbarger [facility] 1.2.840.114 350.1.13.10 4.2.7.2.686 [id number] 134 [id number] [facility] 2023-08-29 09:45:00 2023-08-29 10:02:16 Outpatient R LARON MOONEY [facility] [id number] [facility] 2023-08-29 09:45:00 2023-08-29 10:02:16 Routine Visit Laron Mooney [facility] BUILDING 1.2.840.114 350.1.13.10 4.2.7.2.686 [id number] 134 [id number] [facility] 2023-08-03 11:30:00 2023-08-03 11:59:25 Outpatient R LARON MOONEY [facility] [id number] [facility] 2023-08-03 11:30:00 2023-08-03 11:59:25 Routine Visit Laron Mooney [facility] 1.2840.114 350.1.13.10 4.2.7.2.686 [id number] 134 [id number] [facility] 2023-07-19 00:00:00 2023-07-19 00:00:00 Telephone Laron Mooney [facility] 1.2840.114 350.1.13.10 4.2.7.2.686 [id number] 134 [id number] [facility] 2023-07-19 00:00:00 2023-07-19 00:00:00 Telephone Lraon Mooney [facility] 1.2840.114 350.1.13.10 4.2.7.2.686 [id number] 134 [id number] [facility] 2023-07-17 00:00:2023-07-17 00:00:00 [facility] 1.2840.114 350.1.13.10 4.2.7.2.686 [id number] 134 [id number] [facility] 2023-07-06 09:30:00 2023-07-06 12:22:20 Process Artist Visit Lab, Ang - Db Vinicio [facility] BUILDING 1.2.840.114 350.1.13.10 4.2.7.2.686 [id number] [facility] 2023-07-06 09:30:00 2023-07-06 09:30:[address] [facility] [id number] [facility] 2023-07-06 08:00:00 2023-07-06 09:13:22 Routine Visit Vinicio [facility] 1.2.840.114 350.1.13.10 4.2.7.2.686 [id number] 134 [id number] [facility] 2023-07-06 00:00:00 2023-07-06 00:00:00 Orders Only Doctor Unassigned, Umbarger [facility] 1.2.840.114 350.1.13.10 4.2.7.2.686 [id number] [id number] [facility] 2023-06-27 00:00:00 2023-06-27 00:00:00 Telephone Vinicio [facility] 1.2.840.114 350.1.13.10 4.2.7.2.686 [id number] 134 [id number] [facility] 2023-06-15 00:00:00 2023-06-15 00:00:00 Telephone Vinicio [facility] 1.2.840.114 350.1.13.10 4.2.7.2.686 [id number] 134 [id number] [facility] 2023-06-13 00:00:00 2023-06-13 00:00:00 Telephone VinicioLaron [facility] 1.0.114 350.1.13.10 4.2.7.2.686 [id number] 134 [id number] [facility] 2023-06-12 00:00:00 2023-06-12 00:00:00 Case Management Laron Mooney [facility] 1.0.114 350.1.13.10 4.2.7.2.686 [id number] 134 [id number] [facility] 2023-06-11 08:36:02 2023-06-11 08:36:02 Outpatient [facility] [id number] Jesus Cunningham 2023-06-11 00:00:00 2023-06-11 00:00:00 Telephone VinicioLaron [facility] 1..114 350.1.13.10 4.2.7.2.686 [id number] 134 [id number] [facility] 2023-06-08 14:30:00 2023-06-08 14:57:46 Outpatient R LARON [facility]ONEY [facility] [id number] [facility] 2023-06-08 14:30:00 2023-06-08 14:57:46 Initial Visit Laron Mooney [facility] 1..114 350.1.13.10 4.2.7.2.686 [id number] 134 [id number] [facility] 2023-06-08 00:00:00 2023-06-08 00:00:00 Orders Only Doctor Unassigned, Umbarger [facility] 1.0.114 350.1.13.10 4.2.7.2.686 [id number] [id number] [facility] 2023-05-24 10:30:00 2023-05-24 14:26:49 Outpatient R [facility]ER [facility] [id number] [facility] 2023-05-24 10:30:00 2023-05-24 14:26:49 Process Artist Visit Lab, Mahesh Araujo [facility] Sheldon?[facility] MEDICAL OFFICE BUILDING 1.2.840.114 350.1.13.10 4.2.7.2.686 [id number] 353 [id number] [facility] 2023-05-23 09:31:31 2023-05-23 09:31:31 Outpatient [facility] [id number] Jesus Cunningham 2023-05-18 00:00:00 2023-05-18 00:00:00 [facility] 1.840.114 350.1.13.10 4.2.7.2.686 [id number] 134 [id number] [facility] 2023-05-17 12:15:00 2023-05-17 12:30:00 Process Artist Visit Lab, Mahesh Araujo [facility] She[facility]on?[facility] MEDICAL OFFICE BUILDING 1..840.114 350.1.13.10 4.2.7.2.686 [id number] 353 [id number] [facility] 2023-05-17 11:30:00 2023-05-17 11:53:18 Outpatient R EBENEZER [facility]RA[facility] [id number] [facility] 2023-05-17 11:30:00 2023-05-17 11:53:18 Office Visit LutherEbenezer real [facility] 1.2840.114 350.1.13.10 4.2.7.2.686 [id number] 134 [id number] [facility] 2023-05-14 13:45:00 2023-05-14 13:45:00 Outpatient R LUTHERKAISER YADYMARITO GAYLE [facility]ER [facility] [id number] [facility] 2023-04-11 09:00:00 2023-04-11 10:33:03 Outpatient R LARON MOONEY [facility] [id number] [facility] 2023-04-11 09:00:00 2023-04-11 10:33:03 [facility] 1..840.114 350.1.13.10 4.2.7.2.686 [id number] 134 [id number] [facility] 2023-04-11 00:00:00 2023-04-11 00:00:00 Orders Only Doctor Unassigned, Umbarger [facility] 1..840.114 350.1.13.10 4.2.7.2.686 [id number] [id number] [facility] 2023-03-21 11:00:00 2023-03-21 11:25:56 Outpatient R KENYA [facility]LL [facility] [id number] [facility] 2023-03-21 11:00:00 2023-03-21 11:25:56 Urgent Care Kenya Bell Unknown, Attending [facility] MEDICAL OFFICE BUILDING 1..840.114 350.1.13.10 4.2.7.2.686 [id number] 370 [id number] [facility] 2023-02-06 16:40:00 2023-02-06 17:00:00 Urgent Care Yvan Goode Unknown, Attending [facility] MEDICAL OFFICE BUILDING 1..840.114 350.1.13.10 4.2.7.2.686 [id number] 370 [id number] [facility] 2023-02-06 16:40:00 2023-02-06 16:40:00 Outpatient R YVAN GOODE [facility] [id number] [facility] 2023-02-06 00:00:00 2023-02-06 00:00:00 Orders Only Doctor Unassigned, Umbarger [facility] 1.2.840.114 350.1.13.10 4.2.7.2.686 [id number] [id number] [facility] 2022-09-12 13:30:00 2022-09-12 13:30:00 Outpatient LARON MALONE [facility] [id number] [facility] 2022-06-14 00:00:00 2022-06-14 00:00:00 Telephone Lisa Bo KLianaHLiana [facility] 1.2.840.114 350.1.13.10 4.2.7.2.686 [id number] [facility] 2022-06-01 00:00:00 2022-06-01 00:00:00 Telephone Lisa BoHLiana [facility] 1.2.840.114 350.1.13.10 4.2.7.2.686 [id number] 059 [id number] [facility] 2022-05-26 00:00:00 2022-05-26 00:00:00 Telephone Lisa Bo KLianaHLiana [facility] 1.2.840.114 350.1.13.10 4.2.7.2.686 [id number] [id number] [facility] 2022-05-25 08:30:00 2022-05-25 23:59:00 Outpatient R LISA BO [facility] [id number] [facility] 2022-05-25 08:30:00 2022-05-25 08:30:00 Outpatient R LISA BO [facility] [id number] [facility] 2022-05-19 13:00:00 2022-05-19 23:59:00 Outpatient R LISA BO [facility] [id number] [facility] 2022-05-19 15:00:00 2022-05-19 15:30:00 Office Visit Lisa Bo [facility] BUILDING 1.2840.114 350.1.13.10 4.2.7.2.686 [id number] [facility] 2022-05-19 15:00:00 2022-05-19 15:00:00 Outpatient R LISA BO [facility] [id number] [facility] 2022-05-16 00:00:00 2022-05-16 00:00:00 Orders Only Doctor Unassigned, Umbarger [facility] 1.2840.114 350.1.13.10 4.2.7.2.686 [id number] [facility] 2022-05-15 13:20:00 2022-05-15 13:33:23 Outpatient R NEERU BYRD [facility] [id number] [facility] 2022-05-15 13:20:00 2022-05-15 13:33:23 Urgent Care Neeru Byrd [facility]A [facility] 1.284.114 350.1.13.10 4.2.7.2.686 [id number] [facility] 2022-05-15 00:00:00 2022-05-15 00:00:00 Telephone Lisa Bo [facility] BUILDING 1..840.114 350.1.13.10 4.2.7.2.686 [id number] 059 [id number] [facility] 2022-05-14 15:07:00 2022-05-14 17:38:00 Emergency Stephanie Ro [facility] 1.2840.114 350.1.13.10 4.2.7.2.686 [id number] [facility] 2022-05-14 15:07:00 2022-05-14 17:38:00 Emergency X STEPHANIE RO [facility] [id number] [facility] 2022-05-14 00:00:00 2022-05-14 00:00:00 Case Management Lisa Bo [facility] 1.2.840.114 350.1.13.10 4.2.7.2.686 [id number] [facility] 2022-03-29 00:00:00 2022-03-29 00:00:00 Telephone Laron Mooney [facility] 1.2.840.114 350.1.13.10 4.2.7.2.686 [id number] 134 [id number] [facility] 2022-03-29 00:00:00 2022-03-29 00:00:00 Orders Only Doctor Unassigned, Umbarger [facility] 1.2.840.114 350.1.13.10 4.2.7.2.686 [id number] [id number] [facility] 2022-03-07 13:00:00 2022-03-07 13:50:06 Office Visit Laron Mooney [facility] 1.2.840.114 350.1.13.10 4.2.7.2.686 [id number] 134 [id number] [facility] 2022-03-07 13:00:00 2022-03-07 13:50:06 Outpatient R LARON MOONEY [facility] [id number] [facility] 2022-03-07 13:00:00 2022-03-07 13:00:[address] [facility] [id number] [facility] 2022-03-07 00:00:00 2022-03-07 00:00:00 Orders Only Doctor Unassigned, Umbarger [facility] 1.2.840.114 350.1.13.10 4.2.7.2.686 [id number] [id number] [facility] 2022-02-13 10:45:00 2022-02-13 13:26:51 Outpatient R LARON MOONEY [facility] [id number] [facility] 2022-02-13 10:45:00 2022-02-13 13:26:51 [facility] 1.2.840.114 350.1.13.10 4.2.7.2.686 [id number] 134 [id number] [facility] 2022-01-30 05:46:00 2022-01-31 17:00:00 Inpatient P LARON MOONEY [facility] [id number] [facility] 2022-01-30 05:46:00 2022-01-31 17:00:00 Hospital Encounter Laron Mooney [facility] 1.2.840.114 350.1.13.10 4.2.7.2.686 [id number] [facility] 2022-01-30 08:00:00 2022-01-30 09:29:00 Surgery Laron Mooney [facility] 1.2.840.114 350.1.13.10 4.2.7.2.686 [id number] [facility] 2022-01-28 11:15:00 2022-01-28 11:30:00 Process Artist Visit Pob, Adc [facility] 1.2.840.114 350.1.13.10 4.2.7.2.686 [id number] [facility] 2022-01-28 11:15:00 2022-01-28 11:15:00 Out[facility] [id number] [facility] 2022-01-28 11:00:00 2022-01-28 11:15:00 Laboratory Only Only, Adc Test Laron Mooney [facility] 1.2.840.114 350.1.13.10 4.2.7.2.686 [id number] [facility] 2022-01-28 00:00:00 2022-01-28 00:00:00 Orders Only Doctor Unassigned, Umbarger [facility] 1.2.840.114 350.1.13.10 4.2.7.2.686 [id number] [facility] 2022-01-25 15:30:00 2022-01-25 15:45:00 Routine Visit Laron Mooney Anny [facility] 1.2.840.114 350.1.13.10 4.2.7.2.686 [id number] 134 [id number] [facility] 2022-01-25 15:30:00 2022-01-25 15:30:00 Outpatient R AMADA ANNY [facility] [id number] [facility] 2022-01-18 13:00:00 2022-01-18 13:36:58 Outpatient [facility] [id number] [facility] 2022-01-18 13:00:00 2022-01-18 13:36:58 Routine Visit [facility] 1.2.840.114 350.1.13.10 4.2.7.2.686 [id number] 134 [id number] [facility] 2022-01-18 13:00:00 2022-01-18 13:00:00 Outpatient [facility] [id number] [facility] 2022-01-11 14:00:00 2022-01-11 14:54:05 Outpatient R LARON MOONEY [facility] [id number] [facility] 2022-01-11 14:00:00 2022-01-11 14:54:05 Routine Visit [facility] 1.2.840.114 350.1.13.10 4.2.7.2.686 [id number] 134 [id number] [facility] 2022-01-11 00:00:00 2022-01-11 00:00:00 Orders Only Doctor Unassigned, Umbarger [facility] 1.2840.114 350.1.13.10 4.2.7.2.686 [id number] [facility] 2022-01-02 16:15:00 2022-01-02 16:47:19 Outpatient ANNY RIGGS [facility] [id number] [facility] 2022-01-02 16:15:00 2022-01-02 16:47:19 Routine Visit Alexey MooneyAnny Mott [facility] BUILD[facility] 1.2840.114 350.1.13.10 4.2.7.2.686 [id number] 134 [id number] [facility] 2021-12-30 18:12:00 2021-12-30 23:05:00 Outpatient X JENNIFER WELDON [facility] [id number] [facility] 2021-12-30 18:12:00 2021-12-30 23:05:00 Emergency Jaswant Menon Vivian L [facility] 1.2840.114 350.1.13.10 4.2.7.2.686 [id number] [facility] 2021-12-30 00:00:00 2021-12-30 00:00:00 Telephone Laron Mooney [facility] BUILDING 1.2840.114 350.1.13.10 4.2.7.2.686 [id number] 134 [id number] [facility] 2021-12-30 00:00:00 2021-12-30 00:00:00 Orders Only Doctor Unassigned, Umbarger [facility] 1.2.840.114 350.1.13.10 4.2.7.2.686 [id number] [id number] [facility] 2021-12-26 10:30:00 2021-12-26 10:30:00 Outpatient R ANNY YBARRA [facility] [id number] [facility] 2021-12-12 13:15:00 2021-12-12 15:26:50 Outpatient R V[facility]ICIOLARON [facility] [id number] [facility] 2021-12-12 13:15:00 2021-12-12 15:26:50 Routine Visit Laron Mooney [facility] 1.2.840.114 350.1.13.10 4.2.7.2.686 [id number] 134 [id number] [facility] 2021-12-12 13:15:00 2021-12-12 15:26:50 Routine Visit Laron Mooney [facility] 1.2.840.114 350.1.13.10 4.2.7.2.686 [id number] 134 [id number] [facility] 2021-12-12 00:00:00 2021-12-12 00:00:00 Telephone Laron Mooney [facility] BUILDING 1.2.840.114 350.1.13.10 4.2.7.2.686 [id number] 134 [id number] [facility] 2021-12-05 00:00:00 2021-12-05 00:00:00 Case Management Anny Ybarra [facility] BUILDING 1.2.840.114 350.1.13.10 4.2.7.2.686 [id number] 134 [id number] [facility] 2021-11-30 14:45:00 2021-11-30 14:57:17 Outpatient R ANNY YBARRA [facility] [id number] [facility] 2021-11-30 14:45:00 2021-11-30 14:57:17 Routine Visit Anny Ybarra [facility] BUILD[facility] 1.2.840.114 350.1.13.10 4.2.7.2.686 [id number] 134 [id number] [facility] 2021-11-13 00:00:00 2021-11-13 00:00:00 Case Management Laron Mooney [facility] 1.2.840.114 350.1.13.10 4.2.7.2.686 [id number] 134 [id number] [facility] 2021-11-09 14:00:00 2021-11-09 14:00:00 Process Artist Visit 2, Adc Lab Laron Mooney [facility] 1.2.840.114 350.1.13.10 4.2.7.2.686 [id number] [facility] 2021-11-09 13:00:00 2021-11-09 13:53:41 Outpatient R LARON MOONEY [facility] [id number] [facility] 2021-11-09 13:00:00 2021-11-09 13:53:41 Routine Visit Laron Mooney [facility] 1.2.840.114 350.1.13.10 4.2.7.2.686 [id number] 134 [id number] [facility] 2021-10-24 11:15:00 2021-10-24 12:00:00 Process Artist Visit Ultrasound, Jose Catalan [facility] 1.2.840.114 350.1.13.10 4.2.7.2.686 [id number] [facility] 2021-10-24 11:15:00 2021-10-24 11:15:00 Outpatient JOSE FOX SHANNON [facility] [id number] [facility] 2021-10-14 11:30:00 2021-10-14 12:37:28 Outpatient R VINICIO L[facility]ON [facility] [id number] [facility] 2021-10-14 11:30:00 2021-10-14 12:37:28 Routine Visit Laron Mooney [facility] 1..114 350.1.13.10 4.2.7.2.686 [id number] 134 [id number] [facility] 2021-09-21 00:00:00 2021-09-21 00:00:00 Patient Secure Msg Doctor Unassigned, [facility] 1.84.114 350.1.13.10 4.2.7.2.686 [id number] 134 [id number] [facility] 2021-09-19 00:00:00 2021-09-19 00:00:00 Case Management JimAnny chen [facility] 1.2840.114 350.1.13.10 4.2.7.2.686 [id number] 134 [id number] [facility] 2021-09-16 11:15:00 2021-09-16 11:43:31 Outpatient R [facility] [id number] [facility] 2021-09-16 11:15:00 2021-09-16 11:43:31 Routine Visit Laron Mooney [facility] 1.2.114 350.1.13.10 4.2.7.2.686 [id number] 134 [id number] [facility] 2021-09-16 11:15:00 2021-09-16 11:15:00 Outpatient R LARON [facility]Y [facility] [id number] [facility] 2021-09-15 12:00:00 2021-09-15 12:00:00 Outpatient [facility] [id number] [facility] 2021-09-12 12:23:27 2021-09-12 13:23:27 Process Artist Visit Ultrasound, [facility] Herbert Hunt [facility] 1..840.114 350.1.13.10 4.2.7.2.686 [id number] [facility] 2021-09-12 12:30:00 2021-09-12 12:30:00 Outpatient P [facility] [id number] [facility] 2021-09-12 12:00:00 2021-09-12 12:00:00 Outpatient [facility] [id number] [facility] 2021-09-12 08:00:00 2021-09-12 08:00:00 Outpatient P YAMILA Guzman [facility] [id number] [facility] 2021-09-07 00:00:00 2021-09-07 00:00:00 Telephone MooneyLaron [facility] 1..840.114 350.1.13.10 4.2.7.2.686 [id number] [facility] 2021-08-24 13:15:00 2021-08-24 15:23:43 Outpatient R [facility]ON [facility] [id number] [facility] 2021-08-24 13:07:21 2021-08-24 15:23:43 Process Artist Visit 2, Adc Lab Laron Mooney [facility] 1..840.114 350.1.13.10 4.2.7.2.686 [id number] [facility] 2021-08-24 13:15:00 2021-08-24 13:15:00 Outpatient R [facility] [id number] [facility] 2021-08-19 11:21:36 2021-08-19 12:04:28 Routine Visit Laron Mooney [facility] 1.2.840.114 350.1.13.10 4.2.7.2.686 [id number] 134 [id number] [facility] 2021-08-19 10:15:00 2021-08-19 12:04:28 Outpatient R [facility] [id number] [facility] 2021-08-02 00:00:00 2021-08-02 00:00:00 [facility] 1.2.840.114 350.1.13.10 4.2.7.2.686 [id number] 134 [id number] [facility] 2021-07-27 00:00:00 2021-07-27 00:00:00 Case [facility] 1.2.840.114 350.1.13.10 4.2.7.2.686 [id number] 134 [id number] [facility] 2021-07-26 11:20:43 2021-07-26 11:54:36 Routine Visit Anny Ybarra [facility] 1.2.840.114 350.1.13.10 4.2.7.2.686 [id number] 134 [id number] [facility] 2021-07-26 11:15:00 2021-07-26 11:15:00 Outpatient R AMADA [facility] [id number] [facility] 2021-07-25 11:00:00 2021-07-25 11:00:00 Outpatient R AMADA [facility] [id number] [facility] 2021-07-20 11:00:00 2021-07-20 11:00:00 Outpatient [facility] [id number] [facility] 2021-07-20 09:33:12 2021-07-20 09:38:55 Process Artist Visit 2, Adc Lab Laron Mooney [facility] Building 1.2.840.114 350.1.13.10 4.2.7.2.686 [id number] [facility] 2021-07-20 09:30:00 2021-07-20 09:30:00 Outpatient R [facility] [id number] [facility] 2021-07-20 00:00:00 2021-07-20 00:00:00 Orders Only Doctor Unassigned, [facility] 1.84.114 350.1.13.10 4.2.7.2.686 [id number] [id number] [facility] 2021-07-12 00:00:00 2021-07-12 00:00:00 Telephone Laron Mooney [facility] Building 1.2.840.114 350.1.13.10 4.2.7.2.686 [id number] 134 [id number] [facility] 2021-06-30 00:00:00 2021-06-30 00:00:00 Case Management Amada Anny [facility] Building 1.2.840.114 350.1.13.10 4.2.7.2.686 [id number] 134 [id number] [facility] 2021-06-27 12:56:44 2021-06-27 14:08:53 Initial Visit Laron Mooney [facility] 1.2.840.114 350.1.13.10 4.2.7.2.686 [id number] 134 [id number] [facility] 2021-06-27 14:00:00 2021-06-27 14:00:00 Outpatient [facility] [id number] [facility] 2021-06-27 00:00:00 2021-06-27 00:00:00 Orders Only Doctor Unassigned, [facility] 1.840.114 350.1.13.10 4.2.7.2.686 [id number] 009 [id number] [facility] 2021-06-17 00:00:00 2021-06-17 00:00:[address] 1..114 350.1.13.10 4.2.7.2.686 [id number] 086 [id number] [facility] 2021-06-13 10:00:00 2021-06-13 10:00:00 Outpatient [facility] [id number] [facility] 2021-05-26 08:00:00 2021-05-26 08:00:00 Outpatient R [facility] [id number] [facility] 2020-11-25 10:30:00 2020-11-25 10:30:00 Outpatient R [facility] [id number] [facility] 2020-11-23 14:01:45 2020-11-23 14:34:40 Routine Visit Laron Mooney [facility] 1.2840.114 350.1.13.10 4.2.7.2.686 [id number] 134 [id number] [facility] 2020-11-23 14:01:45 2020-11-23 14:34:40 Routine Visit Laron Moonye [facility] 1.2840.114 350.1.13.10 4.2.7.2.686 [id number] 134 [id number] 2020-11-23 14:15:00 2020-11-23 14:15:00 Outpatient R [facility] [id number] [facility] 2020-11-11 14:00:00 2020-11-11 14:00:00 [facility] [id number] [facility] 2020-11-11 11:15:00 2020-11-11 11:15:00 Outpatient R [facility] [id number] [facility] 2020-11-11 10:47:22 2020-11-11 11:08:04 Nurse Visit Nurse, [facility] Laron Mooney [facility] 1.2.840.114 350.1.13.10 4.2.7.2.686 [id number] 134 [id number] [facility] 2020-11-11 10:47:22 2020-11-11 11:08:04 Nurse Visit Nurse, [facility] 1.2.840.114 350.1.13.10 4.2.7.2.686 [id number] 134 [id number] 2020-10-28 05:30:00 2020-10-29 22:30:00 Hospital Encounter Laron Mooney [facility] 1.2.840.114 350.1.13.10 4.2.7.2.686 [id number] 083 [id number] 2020-10-28 05:30:00 2020-10-29 22:30:00 Hospital Encounter Laron Mooney [facility] 1.2.840.114 350.1.13.10 4.2.7.2.686 [id number] [facility] 2020-10-27 10:13:02 2020-10-27 10:28:02 Laboratory Only Only, [facility] Test [facility] 1.2.840.114 350.1.13.10 4.2.7.2.686 [id number] 353 [id number] 2020-10-27 10:13:02 2020-10-27 10:28:02 Laboratory Only Only, Adc Test Donell Saavedra [facility] 1.2.840.114 350.1.13.10 4.2.7.2.686 [id number] [facility] 2020-10-27 10:00:00 2020-10-27 10:00:00 [facility]patient [facility] [id number] [facility] 2020-10-21 14:52:05 2020-10-21 16:19:18 Routine Visit Laron Mooney [facility] 1.2.840.114 350.1.13.10 4.2.7.2.686 [id number] 134 [id number] 2020-10-21 14:52:05 2020-10-21 16:19:18 Routine Visit Laron Mooney [facility] 1.2840.114 350.1.13.10 4.2.7.2.686 [id number] 134 [id number] [facility] 2020-10-21 14:45:00 2020-10-21 14:45:00 Outpatient [facility] [id number] [facility] 2020-10-21 00:00:00 2020-10-21 00:00:00 Orders Only Doctor Unassigned, [facility] 1.2840.114 350.1.13.10 4.2.7.2.686 [id number] [id number] 2020-10-21 00:00:00 2020-10-21 00:00:00 Orders Only Doctor Unassigned, [facility] 1.2.840.114 350.1.13.10 4.2.7.2.686 [id number] [id number] [facility] 2020-10-16 00:00:00 2020-10-16 00:00:00 Patient Secure Msg Laron Mooney [facility] 1.2.840.114 350.1.13.10 4.2.7.2.686 [id number] 134 [id number] [facility] 2020-10-15 00:00:00 2020-10-15 00:00:00 Patient Secure Msg Laron Mooney [facility] 1.2.840.114 350.1.13.10 4.2.7.2.686 [id number] 134 [id number] [facility] 2020-10-14 15:47:58 2020-10-14 16:38:20 Routine Visit Laron Mooney [facility] [place] [facility] [facility] 1.2.840.114 350.1.13.10 4.2.7.2.686 [id number] 134 [id number] 2020-10-14 15:47:58 2020-10-14 16:38:20 Routine Visit Laron Mooney [facility] 1.2.840.114 350.1.13.10 4.2.7.2.686 [id number] 134 [id number] [facility] 2020-10-14 15:31:53 2020-10-14 15:46:53 Process Artist Visit 2, [facility] 1.2.840.114 350.1.13.10 4.2.7.2.686 [id number] 353 [id number] 2020-10-14 15:31:53 2020-10-14 15:46:53 Process Artist Visit 2, [facility] 1.2.840.114 350.1.13.10 4.2.7.2.686 [id number] 353 [id number] [facility] 2020-10-14 15:45:00 2020-10-14 15:45:00 Outpatient R [facility] [id number] [facility] 2020-10-14 00:00:00 2020-10-14 00:00:00 Case Management Laron Mooney [facility] 1.2.840.114 350.1.13.10 4.2.7.2.686 [id number] 134 [id number] 2020-10-14 00:00:00 2020-10-14 00:00:00 Case Management Laron Mooney [facility] 1.2.840.114 350.1.13.10 4.2.7.2.686 [id number] 134 [id number] [facility] 2020-10-12 00:00:00 2020-10-12 00:00:00 Patient Secure Msg Laron Mooney [facility] BUILDING 1.2.840.114 350.1.13.10 4.2.7.2.686 [id number] 134 [id number] [facility] 2020-10-11 00:00:00 2020-10-11 00:00:00 Telephone Laron Mooney [facility] 1.2.840.114 350.1.13.10 4.2.7.2.686 [id number] 134 [id number] 2020-10-11 00:00:00 2020-10-11 00:00:00 Telephone Laron Mooney [facility] 1.2.840.114 350.1.13.10 4.2.7.2.686 [id number] 134 [id number] [facility] 2020-10-11 00:00:00 2020-10-11 00:00:00 Patient Secure Msg Laron Mooney [facility] BUILDING 1.2.840.114 350.1.13.10 4.2.7.2.686 [id number] 134 [id number] [facility] 2020-10-07 08:18:49 2020-10-07 09:18:03 Routine Visit Laron Mooney [facility] [address] [facility] 1.2.840.114 350.1.13.10 4.2.7.2.686 [id number] 134 [id number] 2020-10-07 08:18:49 2020-10-07 09:18:03 Routine Visit Laron Mooney [facility] Mich Enriquez [facility] 1.2.840.114 350.1.13.10 4.2.7.2.686 [id number] 134 [id number] [facility] 2020-10-07 08:15:00 2020-10-07 08:15:00 Outpatient R [facility] [id number] [facility] 2020-10-06 09:45:00 2020-10-06 09:45:00 Outpatient R [facility] [id number] [facility] 2020-10-06 00:00:00 2020-10-06 00:00:00 Telephone Laron Mooney [facility] 1.2.840.114 350.1.13.10 4.2.7.2.686 [id number] 134 [id number] 2020-10-06 00:00:00 2020-10-06 00:00:00 Telephone Laron Mooney [facility] Building 1.2.840.114 350.1.13.10 4.2.7.2.686 [id number] 134 [id number] [facility] 2020-10-04 00:00:00 2020-10-04 00:00:00 Patient Secure Msg Laron Mooney [facility] 1.2.840.114 350.1.13.10 4.2.7.2.686 [id number] 134 [id number] [facility] 2020-10-02 14:07:00 2020-10-02 19:02:00 Emergency Edgardo Recinos Vien [facility] 1.2.840.114 350.1.13.10 4.2.7.2.686 [id number] 083 [id number] 2020-10-02 14:07:00 2020-10-02 19:02:00 Emergency Edgardo Recinos [facility] 1.2.840.114 350.1.13.10 4.2.7.2.686 [id number] 083 [id number] [facility] 2020-09-22 15:22:19 2020-09-22 15:43:16 Routine Visit Laron Mooney [facility] 1.2.840.114 350.1.13.10 4.2.7.2.686 [id number] 134 [id number] 2020-09-22 15:22:19 2020-09-22 15:43:16 Routine Visit Laron Mooney [facility] 1.2.840.114 350.1.13.10 4.2.7.2.686 [id number] 134 [id number] [facility] 2020-09-22 15:30:00 2020-09-22 15:30:00 Outpatient R [facility] [id number] [facility] 2020-09-13 00:00:00 2020-09-13 00:00:00 Orders Only Doctor Unassigned, [facility] 1.2.840.114 350.1.13.10 4.2.7.2.686 [id number] 009 [id number] 2020-09-13 00:00:00 2020-09-13 00:00:00 Orders Only Doctor Unassigned, [facility]ar[facility] 1.2.840.114 350.1.13.10 4.2.7.2.686 [id number] [id number] [facility] 2020-09-08 16:30:00 2020-09-08 16:30:00 Outpatient R [facility] [id number] [facility] 2020-09-08 10:04:39 2020-09-08 10:19:39 Routine Visit Anny Ybarra [facility] 1.2.840.114 350.1.13.10 4.2.7.2.686 [id number] 134 [id number] 2020-09-08 10:04:39 2020-09-08 10:19:39 Routine Visit Anny Ybarra [facility] 1.2.840.114 350.1.13.10 4.2.7.2.686 [id number] 134 [id number] [facility] 2020-09-04 20:56:00 2020-09-04 20:56:00 Outpatient Mart Steele [facility] [id number] [facility] 2020-09-03 00:00:00 2020-09-03 00:00:00 Orders Only Doctor Unassigned, [facility] 1.2.840.114 350.1.13.10 4.2.7.2.686 [id number] [id number] [facility] 2020-09-01 00:00:00 2020-09-01 00:00:00 Case Management Laron Mooney [facility] 1.2.840.114 350.1.13.10 4.2.7.2.686 [id number] 134 [id number] 2020-09-01 00:00:00 2020-09-01 00:00:00 Case Management Laron Mooney [facility] 1.2.840.114 350.1.13.10 4.2.7.2.686 [id number] 134 [id number] [facility] 2020-08-25 09:47:40 2020-08-25 10:28:07 Routine Visit Laron Mooney [facility] 1.2.840.114 350.1.13.10 4.2.7.2.686 [id number] 134 [id number] [facility] 2020-08-25 09:45:00 2020-08-25 09:45:00 Outpatient R [facility] [id number] [facility] 2020-08-11 10:15:00 2020-08-11 10:15:00 Outpatient [facility] [id number] [facility] 2020-08-11 09:10:01 2020-08-11 09:25:01 Process Artist Visit 2, Adc Lab Laron Mooney [facility] Building 1..114 350.1.13.10 4.2.7.2.686 [id number] 353 [id number] [facility] 2020-07-30 14:09:41 2020-07-30 15:09:41 Process Artist Visit Ultrasound, Adc [facility] Harry Chisholm [facility] 1.114 350.1.13.10 4.2.7.2.686 [id number] 134 [id number] [facility] 2020-07-30 14:00:00 2020-07-30 14:00:00 Outpatient [facility] [id number] [facility] 2020-07-28 13:02:23 2020-07-28 13:51:17 Routine Visit Laron Mooney [facility] 1..114 350.1.13.10 4.2.7.2.686 [id number] 134 [id number] [facility] 2020-07-28 13:00:00 2020-07-28 13:00:00 Outpatient R [facility] [id number] [facility] 2020-07-28 00:00:00 2020-07-28 00:00:00 Letter (Out) Doctor Unassigned, U[facility]arger [facility] 1.114 350.1.13.10 4.2.7.2.686 [id number] [facility] 2020-07-13 00:00:00 2020-07-13 00:00:00 Letter (Out) Laron Mooney [facility] 1.2.840.114 350.1.13.10 4.2.7.2.686 [id number] 134 [id number] [facility] 2020-07-10 06:03:00 2020-07-10 06:42:00 Emergency Stephanie Ro [facility] 1.2.840.114 350.1.13.10 4.2.7.2.686 [id number] 084 [id number] [facility] 2020-07-08 00:00:00 2020-07-08 00:00:00 Orders Only Doctor Unassigned, U[facility]arger [facility] 1.2840.114 350.1.13.10 4.2.7.2.686 [id number] [id number] [facility] 2020-07-01 00:00:00 2020-07-01 00:00:00 Telephone Laron Mooney [facility] 1.2840.114 350.1.13.10 4.2.7.2.686 [id number] 134 [id number] [facility] 2020-06-30 14:52:17 2020-06-30 16:18:50 Initial Visit Laron Mooney [facility] 1.2840.114 350.1.13.10 4.2.7.2.686 [id number] 134 [id number] [facility] 2020-06-30 14:30:00 2020-06-30 14:30:00 Outpatient R [facility]ON [facility] [id number] [facility] 2020-06-30 00:00:00 2020-06-30 00:00:00 Orders Only Doctor Unassigned, Umbarger [facility] 1.2840.114 350.1.13.10 4.2.7.2.686 [id number] [id number] [facility] 2020-06-21 02:25:00 2020-06-21 03:35:00 Hospital Encounter Jennifer Weldon [facility] 1.2.840.114 350.1.13.10 4.2.7.2.686 [id number] [facility] 2020-06-21 02:25:00 2020-06-21 02:25:00 Outpatient P JENNIFER WELDON [facility] [id number] [facility] 2019-10-11 23:44:50 2019-10-12 04:24:00 Emergency X STEPHANIE RO [facility] ERT [id number] [facility] Results Test Description Test Time Test Comments Results Result Comments Source CT Abdomen pelvis wo contrast 2024-11 03:01:5 2 EXAM: CT ABDOMEN PELVIS WO CONTRAST ORDERING PROVIDER: ARELI JENKINS HISTORY: 29 years-old Female; Ordered Indication: Flank pain, kidney stonesuspected . TECHNIQUE: Contiguous axial imaging from the level of the lung basesthrough the proximal thighs was performed without the intravenousadministration of contrast. Coronal and sagittal reconstructions wereobtained. COMPARISON: None FINDINGS: LOWER THORAX: The lung bases are clear. LIVER: No suspicious lesion is seen within a noncontrast examination.Steatosis is noted. The liver is enlarged to 19 cm in length. GALLBLADDER AND BILIARY TREE: The gallbladder is unremarkable. No biliaryductal dilatation is visualized. SPLEEN: The spleen is normal in size. PANCREAS: No ductal dilation or solid mass is visualized. ADRENAL GLANDS: No mass is seen. KIDNEYS/URETER/BLADDER: No hydronephrosis or contour deforming solid massis seen. Both kidneys have a small extrarenal pelvis. The bladder hasslightly disproportionate anterior wall thickening for the degree ofdistention. PELVIC ORGANS: No suspicious pelvic mass is seen. GI TRACT: A moderate volume of solid stool is present without obstruction.Gastroesophageal reflux is suggested. The appendix appears unremarkable. PERITONEUM AND RETROPERITONEUM: No intra-abdominal free air or fluidcollection is visualized. LYMPH NODES: No suspicious lymphadenopathy is seen. VESSELS: The vessels are grossly unremarkable. BONES AND SOFT TISSUES: No suspicious osseous lesion is seen. Fusion of theT10 and T11 vertebral bodies is incidentally seen. [id number] 20:40:00* Test Item Value Reference Range Interpretation Comme nts POCT PREG (test code = 1605) Negative On board controls acceptable with C Line (test code = 3574) Yes POCT PREG LOT # (test code = 3575) POCT PREG TEST DATE ( test code = 3576) Lab Interpretation (test cod e = 99681-1) [facility] (17430)2024-10-03 06:55:51* Test Item Value Reference Range Interpretation Comme nts NA (test code = 0862452233) 136 mmol/L 135-145 K (test code = 9702263903) 3.6 mmol/L 3.5-5.0 CL (test code = 9696830576) 105 mmol/L 98-108 CO2 TOTAL (test code = 3800359614) 20 mmol/L 23-31 L AGAP (test code = 0752153870) 11 2-16 BUN (test code = 4368850728) 9 mg/dL 7-23 GLUCOSE (test code = 5557945494) 97 mg/dL 70-110 CREATININE (test code = 2160-0) 0.65 mg/dL 0.50-1.04 TOTAL BILI (test code = 5584542617) 0.6 mg/dL 0.1-1.1 CALCIUM (test code = 3935574979) 9.4 mg/dL 8.6-10.6 T PROTEIN (test code = 4454525049) 8.4 g/dL 6.3-8.2 H ALBUMIN (test code = 6376907362) 4.8 g/dL 3.5-5.0 ALK PHOS (test code = 4859979799) 106 U/L 34-122 ALTv (test code = 1742-6) 15 U/L 5-35 AST(SGOT) (test code = 2456666460) 20 U/L 13-40 eGFR (test code = 07924-3) 123.9 mL/min/1.73m2 CKD-EPI eGFR (2020). Assuming creatinine has been stable day-to-day for at least three months, the eGFR indicates Category G1 (>= 90 mL/min/1.73 m2) Lab Interpretation (test code = 87351-1) Abnormal [facility] with [id number] 06:40:28* Test Item Value Reference Range Interpretation Comme nts WBC (test code = 6690-2) 9.63 4.30-11.10 RBC (test code = 789-8) 5.21 3.93-5.25 HGB (test code = 718-7) 15.3 g/dL 11.6-15.0 H HCT (test code = 4544-3) 44.3 % 35.7-45.2 MCV (test code = 787-2) 85.0 fL 80.6-95.5 MCH (test code = 785-6) 29.4 pg 25.9-32.8 MCHC (test code = 786-4) 34.5 g/dL 31.6-35.1 RDW-SD (test code = 99699-1) 38.8 fL 39.0-49.9 L RDW-CV (test code = 788-0) 12.6 % 12.0-15.5 PLT (test code = 777-3) 324 166-358 MPV (test code = 95530-3) 11.9 fL 9.5-12.9 NRBC/100 WBC (test code = 9584594305) 0.0 0.0-10.0 NRBC x10^3 (test code = 0041466846) See_Comment [Automated messa ge] The system which generated this result transmitted reference range: 10*3/?L. The reference range was not used to interpret this result as normal/abnormal. GRAN MAT (NEUT) % (test code = 770-8) 77.9 % IMM GRAN % (test code = 6388046129) 0.30 % LYMPH % (test code = 736-9) 14.6 % MONO % (test code = 5905-5) 5.3 % EOS % (test code = 713-8) 1.7 % BASO % (test code = 706-2) 0.2 % GRAN MAT x10^3(ANC) (test code = 6276267184) 7.50 10*3/uL 1.88-7.09 H IMM GRAN x10^3 (test code = 7240429778) 0.03 10*3/uL 0.00-0.06 LYMPH x10^3 (test code = 731-0) 1.41 10*3/uL 1.32-3.29 MONO x10^3 (test code = 742-7) 0.51 10*3/uL 0.33-0.92 EOS x10^3 (test code = 711-2) 0.16 10*3/uL 0.03-0.39 BASO x10^3 (test code = 704-7) 0.01-0.07 Lab Interpretation (test code = 69791-4) Abnormal [facility] [id number] 06:20:00* Test Item Value Reference Range Interpretation Comme nts POCT PREG (test code = 1605) Negative On board controls acceptable with C Line (test code = 3574) Yes POCT PREG LOT # (test code = 3575) [id number] POCT PREG TEST DATE ( test code = 3576) 07/05/2025 Lab Interpretation (test cod e = 19466-5) Normal [facility] Urinalysis w/o Specific [id number] 17:14:00* Test Item Value Reference Range Interpretation Comme nts POCT PH U (test code = 3254) 5 mg/dl 5-8 POCT U LEUK EST (test code = 3263) trace Negative - Negative POCT U NIT (test code = 3262) neg Negative - Negati ve POCT U PROT (test code = 3259) neg Negative - Negat taisha POCT U GLU (test code = 3256) neg Negative - Negati ve POCT U KETONE (test code = 3258) neg Negative - Neg ative POCT U BLD (test code = 3257) positive Negative - Negati ve [facility] Urinalysis w/o Specific [id number] 19:59:00* Test Item Value Reference Range Interpretation [...] = 3257) negative Negative - Negati ve [facility] [id number] 21:23:00* Test Item Value Reference Range Interpretation Comme nts POCT PREG (test code = 1605) Negative On board controls acceptable with C Line (test code = 3574) Yes POCT PREG LOT # (test code = 3575) POCT PREG TEST DATE ( test code = 3576) [facility] [id number] 21:23:00* Test Item Value Reference Range Interpretation Comme nts POCT PREG (test code = 1605) Negative On board controls acceptable with C Line (test code = 3574) Yes POCT PREG LOT # (test code = 3575) POCT PREG TEST DATE ( test code = 3576) [facility] [id number] 14:34:30 Ordered by an unspecified provider.[facility] YWGXUTLZHSRAQ0386-14-63 14:19:20Ordered by an unspecified provider.[facility] with Dqcuoefneqqm5870-88-98 10:06:01* Test Item Value Reference Range Interpretation [...] 33.0 g/dL 31.6-35.1 RDW-SD (test code = 46321-8) 51.1 fL 39.0-49.9 H RDW-CV (test code = 788-0) 15.9 % 12.0-15.5 H PLT (test code = 777-3) 178 166-358 MPV (test code = 33091-2) 13.9 fL 9.5-12.9 H IPF % (test code = 0876200901) 12.9 % 1.3-7.7 H Platelet count measured by fluorescence method. NRBC/100 WBC (test code = 5690871842) 0.0 0.0-10.0 NRBC x10^3 (test code = 5391612006) See_Comment [Automated Picosuna ge] The system which generated this result transmitted reference range: 10*3/?L. The reference range was not used to interpret this result as normal/abnormal. GRAN MAT (NEUT) % (test code = 770-8) 71.5 % IMM GRAN % (test code = 6708403536) 0.50 % LYMPH % (test code = 736-9) 19.8 % MONO % (test code = 5905-5) 6.6 % EOS % (test code = 713-8) 1.4 % BASO % (test code = 706-2) 0.2 % GRAN MAT x10^3(ANC) (test code = 3017540894) 6.13 10*3/uL 1.88-7.09 IMM GRAN x10^3 (test code = 4318917963) 0.04 10*3/uL 0.00-0.06 LYMPH x10^3 (test code = 731-0) 1.70 10*3/uL 1.32-3.29 MONO x10^3 (test code = 742-7) 0.57 10*3/uL 0.33-0.92 EOS x10^3 (test code = 711-2) 0.12 10*3/uL 0.03-0.39 BASO x10^3 (test code = 704-7) 0.01-0.07 Lab Interpretation (test code = 56124-6) Abnormal [facility] with [id number] 10:06:01* Test Item Value Reference Range Interpretation [...] 33.0 g/dL 31.6-35.1 RDW-SD (test code = 73280-6) 51.1 fL 39.0-49.9 H RDW-CV (test code = 788-0) 15.9 % 12.0-15.5 H PLT (test code = 777-3) 178 166-358 MPV (test code = 35440-0) 13.9 fL 9.5-12.9 H IPF % (test code = 3212050675) 12.9 % 1.3-7.7 H Platelet count measured by fluorescence method. NRBC/100 WBC (test code = 6084748265) 0.0 0.0-10.0 NRBC x10^3 (test code = 2458489718) See_Comment [Automated [employer] ge] The system which generated this result transmitted reference range: 10*3/?L. The reference range was not used to interpret this result as normal/abnormal. GRAN MAT (NEUT) % (test code = 770-8) 71.5 % IMM GRAN % (test code = 3188327317) 0.50 % LYMPH % (test code = 736-9) 19.8 % MONO % (test code = 5905-5) 6.6 % EOS % (test code = 713-8) 1.4 % BASO % (test code = 706-2) 0.2 % GRAN MAT x10^3(ANC) (test code = 3818056114) 6.13 10*3/uL 1.88-7.09 IMM GRAN x10^3 (test code = 0497141221) 0.04 10*3/uL 0.00-0.06 LYMPH x10^3 (test code = 731-0) 1.70 10*3/uL 1.32-3.29 MONO x10^3 (test code = 742-7) 0.57 10*3/uL 0.33-0.92 EOS x10^3 (test code = 711-2) 0.12 10*3/uL 0.03-0.39 BASO x10^3 (test code = 704-7) 0.01-0.07 Lab Interpretation (test code = 20439-9) Abnormal [facility] OR [facility] ONLY - [id number] 05:31:01* Test Item Value Reference Range Interpretation Comme nts RPR (Qualitative) (test code = 46412-8) Nonreactive Nonreactive Lab Interpretation (test cod e = 72428-8) Normal [facility] OR [facility] ONLY - [id number] 05:31:01* Test Item Value Reference Range Interpretation Comme nts RPR (Qualitative) (test code = 56095-3) Nonreactive Nonreactive Lab Interpretation (test cod e = 27038-5) Normal [facility] B Surface Fncbutw3709-92-86 16:00:24 * Test Item Value Reference Range Interpretation Comme nts HBsAg Semi-Quantitative (eriberto t code = 5195-3) 0.06 Negative [facility] B Surface Mdnrthz2849-49-67 16:00:24 * Test Item Value Reference Range Interpretation Comme nts HBsAg Semi-Quantitative (eriberto t code = 5195-3) 0.06 Negative [facility] (D) IMMUNE [id number] 14:49:10* Test Item Value Reference Range Interpretation Comme nts RHIG CANDIDATE? (test code = 5188) No- see comment Patient is not a candidate for RhIg- Patient is Rh Positive.Performed at [facility] Laboratory [facility] Blood [address] [place] [id number] Free: [phone] No. [id number] [facility] (D) IMMUNE [id number] 14:49:10* Test Item Value Reference Range Interpretation Comme nts RHIG CANDIDATE? (test code = 5188) No- see comment Patient is not a candidate for RhIg- Patient is Rh Positive.Performed at [facility] Laboratory Services - [facility] Blood [address] [place] [id number] Free: [phone] No. [id number] [facility] with Dbfaby4973-71-27 13:25:47* Test Item Value Reference Range Interpretation Comme nts HIV Semi-quantitative (test code = 29987-4) 0.09 Negative SUSANNAH (test code = SUSANNAH) Non-reactive for HIV-1 antigen and HIV-1/HIV-2 antibodies. ?No laboratory evidence of HIV infection. ?Repeat in 2-4 weeks if acute HIV infection is suspected. [facility] Mlpsov4345-91-09 13:25:47* Test Item Value Reference Range Interpretation Comme nts HIV Semi-quantitative (test code = 99186-0) 0.09 Negative SUSANNAH (test code = SUSANNAH) Non-reactive for HIV-1 antigen and HIV-1/HIV-2 antibodies. ?No laboratory evidence of HIV infection. ?Repeat in 2-4 weeks if acute HIV infection is suspected. [facility] with Ywojwsligegu6002-06-28 12:35:40* Test Item Value Reference Range Interpretation [...] 33.1 g/dL 31.6-35.1 RDW-SD (test code = 42377-3) 49.5 fL 39.0-49.9 RDW-CV (test code = 788-0) 15.9 % 12.0-15.5 H PLT (test code = 777-3) 193 166-358 MPV (test code = 76822-4) 14.4 fL 9.5-12.9 H IPF % (test code = 3095041688) 15.8 % 1.3-7.7 H Platelet count measured by fluorescence method. NRBC/100 WBC (test code = 4015904202) 0.0 0.0-10.0 NRBC x10^3 (test code = 7068959979) See_Comment [Automated messa ge] The system which generated this result transmitted reference range: 10*3/?L. The reference range was not used to interpret this result as normal/abnormal. GRAN MAT (NEUT) % (test code = 770-8) 69.7 % IMM GRAN % (test code = 1337596088) 0.40 % LYMPH % (test code = 736-9) 22.7 % MONO % (test code = 5905-5) 5.7 % EOS % (test code = 713-8) 1.2 % BASO % (test code = 706-2) 0.3 % GRAN MAT x10^3(ANC) (test code = 6284992021) 6.88 10*3/uL 1.88-7.09 IMM GRAN x10^3 (test code = 4960862059) 0.04 10*3/uL 0.00-0.06 LYMPH x10^3 (test code = 731-0) 2.24 10*3/uL 1.32-3.29 MONO x10^3 (test code = 742-7) 0.56 10*3/uL 0.33-0.92 EOS x10^3 (test code = 711-2) 0.12 10*3/uL 0.03-0.39 BASO x10^3 (test code = 704-7) 0.03 10*3/uL 0.01-0.07 Lab Interpretation (test code = 06483-6) Abnormal [facility] with Eyfhnplkrojy8615-42-65 12:35:40* Test Item Value Reference Range Interpretation [...] 33.1 g/dL 31.6-35.1 RDW-SD (test code = 39655-5) 49.5 fL 39.0-49.9 RDW-CV (test code = 788-0) 15.9 % 12.0-15.5 H PLT (test code = 777-3) 193 166-358 MPV (test code = 85740-4) 14.4 fL 9.5-12.9 H IPF % (test code = 2238469544) 15.8 % 1.3-7.7 H Platelet count measured by fluorescence method. NRBC/100 WBC (test code = 0867035706) 0.0 0.0-10.0 NRBC x10^3 (test code = 5954711529) See_Comment [Automated messa ge] The system which generated this result transmitted reference range: 10*3/?L. The reference range was not used to interpret this result as normal/abnormal. GRAN MAT (NEUT) % (test code = 770-8) 69.7 % IMM GRAN % (test code = 7782005758) 0.40 % LYMPH % (test code = 736-9) 22.7 % MONO % (test code = 5905-5) 5.7 % EOS % (test code = 713-8) 1.2 % BASO % (test code = 706-2) 0.3 % GRAN MAT x10^3(ANC) (test code = 7166048245) 6.88 10*3/uL 1.88-7.09 IMM GRAN x10^3 (test code = 3794475680) 0.04 10*3/uL 0.00-0.06 LYMPH x10^3 (test code = 731-0) 2.24 10*3/uL 1.32-3.29 MONO x10^3 (test code = 742-7) 0.56 10*3/uL 0.33-0.92 EOS x10^3 (test code = 711-2) 0.12 10*3/uL 0.03-0.39 BASO x10^3 (test code = 704-7) 0.03 10*3/uL 0.01-0.07 Lab Interpretation (test code = 47479-6) Abnormal [facility] - ONCE [id number] 12:10:00 * Test Item Value Reference Range Interpretation Comme nts ABO & RH (test code = 20) O POSITIVE IAT (test code = 1185) Negative [facility] HospitalType [facility] Screen - ONCE CZQU6608-79-27 12:10:00 * Test Item Value Reference Range Interpretation Comme nts ABO & RH (test code = 20) O POSITIVE IAT (test code = 1185) Negative [facility] HospitalDME/SUPPLY ZDLNWPAKEUASO6037-21-43 16:18:51 Ordered by an unspecified provider.[facility] Urinalysis w/o Specific Temnete6249-62-48 13:30:00* Test Item Value Reference Range Interpretation [...] = 3257) n/a Negative - Negati ve [facility] HospitalDME/SUPPLY VWWUAMENSIQXQ2676-73-28 17:15:13 Ordered by an unspecified provider.[facility]PO[facility] Urinalysis w/o Specific Fbwxwez3730-06-17 13:29:00* Test Item Value Reference Range Interpretation [...] = 3257) n/a Negative - Negati ve [facility] HospitalDSU ARJ-KN2131-66-05 14:19:51Ordered by an unspecified provider.[facility] Urinalysis w/o Specific Fqakdvm1187-66-96 19:44:00* Test Item Value Reference Range Interpretation [...] = 3257) n/a Negative - Negati ve [facility] HospitalPOSC Urinalysis w/o Specific Hwndxry7553-50-18 15:28:00* Test Item Value Reference Range Interpretation [...] internal controls Lab Interpretation (test code = 87186-6) Normal [facility] Urinalysis w/o Specific Uqbnbdc4480-59-61 16:15:00* Test Item Value Reference Range Interpretation [...] = 3257) n/a Negative - Negati ve [facility] HospitalComp. Metabolic Panel (09420)2023-11-24 03:15:53* Test Item Value Reference Range Interpretation Comme nts NA (test code = 1098820030) 134 mmol/L 135-145 L K (test code = 2547000499) 3.4 mmol/L 3.5-5.0 L CL (test code = 8172386786) 109 mmol/L 98-108 H CO2 TOTAL (test code = 3810637745) 20 mmol/L 23-31 L AGAP (test code = 5759549333) 5 2-16 BUN (test code = 4866730441) 5 mg/dL 7-23 L GLUCOSE (test code = 6782559755) 115 mg/dL 70-110 H CREATININE (test code = 2160-0) 0.39 mg/dL 0.50-1.04 L TOTAL BILI (test code = 9029695498) 0.4 mg/dL 0.1-1.1 CALCIUM (test code = 8569227791) 9.4 mg/dL 8.6-10.6 T PROTEIN (test code = 3998927427) 7.7 g/dL 6.3-8.2 ALBUMIN (test code = 0454184813) 3.8 g/dL 3.5-5.0 ALK PHOS (test code = 5363112569) 109 U/L 34-122 ALTv (test code = 1742-6) 8 U/L 5-35 AST(SGOT) (test code = 5647908395) 19 U/L 13-40 eGFR (test code = 00664-1) 141.0 mL/min/1.73m2 CKD-EPI eGFR (2020). Assuming creatinine has been stable day-to-day for at least three months, the eGFR indicates Category G1 (>= 90 mL/min/1.73 m2) Lab Interpretation (test code = 16000-6) Abnormal [facility] HospitalCb with Oicq9182-82-03 03:03:15* Test Item Value Reference Range Interpretation [...] 33.6 g/dL 31.6-35.1 RDW-SD (test code = 39249-4) 43.9 fL 39.0-49.9 RDW-CV (test code = 788-0) 14.2 % 12.0-15.5 PLT (test code = 777-3) 267 166-358 MPV (test code = 86182-8) 12.5 fL 9.5-12.9 NRBC/100 WBC (test code = 3268516258) 0.0 0.0-10.0 NRBC x10^3 (test code = 8364271334) See_Comment [Automated messa ge] The system which generated this result transmitted reference range: 10*3/?L. The reference range was not used to interpret this result as normal/abnormal. GRAN MAT (NEUT) % (test code = 770-8) 71.7 % IMM GRAN % (test code = 2823139320) 0.60 % LYMPH % (test code = 736-9) 19.4 % MONO % (test code = 5905-5) 7.4 % EOS % (test code = 713-8) 0.7 % BASO % (test code = 706-2) 0.2 % GRAN MAT x10^3(ANC) (test code = 8707165280) 7.05 10*3/uL 1.88-7.09 IMM GRAN x10^3 (test code = 8894803452) 0.06 10*3/uL 0.00-0.06 LYMPH x10^3 (test code = 731-0) 1.91 10*3/uL 1.32-3.29 MONO x10^3 (test code = 742-7) 0.73 10*3/uL 0.33-0.92 EOS x10^3 (test code = 711-2) 0.07 10*3/uL 0.03-0.39 BASO x10^3 (test code = 704-7) 0.01-0.07 Lab Interpretation (test code = 64506-3) Abnormal [facility] Urinalysis w/o Specific Aasdgxb8377-94-13 17:08:00* Test Item Value Reference Range Interpretation [...] = 3257) n/a Negative - Negati ve [facility] Urinalysis w/o Specific Ehprwmo6104-73-19 17:08:00* Test Item Value Reference Range Interpretation [...] = 3257) n/a Negative - [facility] Netmaor7390-74-41 17:08:00* Test Item Value Reference Range Interpretation [...] = 3257) n/a Negative - Negati ve [facility]POS[facility] Urinalysis w/o Specific Cwgzhwp2987-44-89 22:09:00* Test Item Value Reference Range Interpretation [...] = 3257) n/a Negative - Negati ve [facility] (NA, K, CL, CO2, GLUCOSE, BUN, CREATININE, CA)2023-10-11 11:20:51* Test Item Value Reference Range Interpretation Comme nts NA (test code = 1024692055) 134 mmol/L 135-145 L K (test code = 8505735471) 2.9 mmol/L 3.5-5.0 LL CL (test code = 0367349213) 108 mmol/L 98-108 CO2 TOTAL (test code = 2881926037) 20 mmol/L 23-31 L AGAP (test code = 0558552817) 6 2-16 BUN (test code = 6532641055) 3 mg/dL 7-23 L GLUCOSE (test code = 2395056785) 120 mg/dL 70-110 H CREATININE (test code = 4624215599) 0.45 mg/dL 0.50-1.04 L CALCIUM (test code = 4206006699) 8.3 mg/dL 8.6-10.6 L eGFR (test code = 79254-9) 136.3 mL/min/1.73m2 CKD-EPI eGFR (2020). Assuming creatinine has been stable day-to-day for at least three months, the eGFR indicates Category G1 (>= 90 mL/min/1.73 m2) Lab Interpretation (test code = 67079-1) Abnormal [facility] with Zeno0583-56-61 10:28:30* Test Item Value Reference Range Interpretation Comme nts WBC (test code = 6690-2) 10.60 See_Comment [Automated messa ge] The system which [...] g/dL 31.6-35.1 H RDW-SD (test code = 05924-5) 43.4 fL 39.0-49.9 RDW-CV (test code = 788-0) 13.9 % 12.0-15.5 PLT (test code = 777-3) 196 See_Comment [Automated messa ge] The system which generated this result transmitted reference range: 166 - 358 10*3/?L. The reference range was not used to interpret this result as normal/abnormal. MPV (test code = 35827-8) 12.3 fL 9.5-12.9 NRBC/100 WBC (test code = 2080470783) 0.0 See_Comment [Automated [employer] ssage] The system which generated this result transmitted reference range: 0.0 - 10.0 /100 WBCs. The reference range was not used to interpret this result as normal/abnormal. NRBC x10^3 (test code = 5630570476) See_Comment [Automated messa ge] The system which generated this result transmitted reference range: 10*3/?L. The reference range was not used to interpret this result as normal/abnormal. GRAN MAT (NEUT) % (test code = 770-8) 75.0 % IMM GRAN % (test code = 2395333977) 0.40 % LYMPH % (test code = 736-9) 13.7 % MONO % (test code = 5905-5) 10.6 % EOS % (test code = 713-8) 0.1 % BASO % (test code = 706-2) 0.2 % GRAN MAT x10^3(ANC) (test code = 1986855245) 7.96 10*3/uL 1.88-7.09 H IMM GRAN x10^3 (test code = 1596327205) 0.04 10*3/uL 0.00-0.06 LYMPH x10^3 (test code = 731-0) 1.45 10*3/uL 1.32-3.29 MONO x10^3 (test code = 742-7) 1.12 10*3/uL 0.33-0.92 H EOS x10^3 (test code = 711-2) 0.03-0.39 L BASO x10^3 (test code = 704-7) 0.01-0.07 Lab Interpretation (test code = 37310-1) Abnormal [facility] with Icgx0662-71-20 23:08:02* Test Item Value Reference Range Interpretation [...] g/dL 31.6-35.1 H RDW-SD (test code = 03781-2) 42.5 fL 39.0-49.9 RDW-CV (test code = 788-0) 13.8 % 12.0-15.5 PLT (test code = 777-3) 214 See_Comment [Automated [employer] ge] The system which generated this result transmitted reference range: 166 - 358 10*3/?L. The reference range was not used to interpret this result as normal/abnormal. MPV (test code = 66846-7) 13.0 fL 9.5-12.9 H IPF % (test code = 5244606846) 12.3 % 1.3-7.7 H Platelet count measured by fluorescence method. NRBC/100 WBC (test code = 5869675759) 0.0 See_Comment [Automated [employer] ssage] The system which generated this result transmitted reference range: 0.0 - 10.0 /100 WBCs. The reference range was not used to interpret this result as normal/abnormal. NRBC x10^3 (test code = 5659225345) See_Comment [Automated [employer] ge] The system which generated this result transmitted reference range: 10*3/?L. The reference range was not used to interpret this result as normal/abnormal. GRAN MAT (NEUT) % (test code = 770-8) 84.2 % IMM GRAN % (test code = 8783814589) 0.40 % LYMPH % (test code = 736-9) 7.7 % MONO % (test code = 5905-5) 7.5 % EOS % (test code = 713-8) 0.0 % BASO % (test code = 706-2) 0.2 % GRAN MAT x10^3(ANC) (test code = 6792970110) 12.16 10*3/uL 1.88-7.09 H IMM GRAN x10^3 (test code = 4374534217) 0.06 10*3/uL 0.00-0.06 LYMPH x10^3 (test code = 731-0) 1.11 10*3/uL 1.32-3.29 L MONO x10^3 (test code = 742-7) 1.09 10*3/uL 0.33-0.92 H EOS x10^3 (test code = 711-2) 0.03-0.39 L BASO x10^3 (test code = 704-7) 0.03 10*3/uL 0.01-0.07 Lab Interpretation (test code = 01546-5) Abnormal [facility]. Metabolic Panel (58901)2023-10-10 22:55:38* Test Item Value Reference Range Interpretation Comme nts NA (test code = 0346364699) 131 mmol/L 135-145 L K (test code = 2491405763) 3.5 mmol/L 3.5-5.0 CL (test code = 5505090873) 103 mmol/L 98-108 CO2 TOTAL (test code = 7860332130) 18 mmol/L 23-31 L AGAP (test code = 3852069422) 10 2-16 BUN (test code = 1658179643) 4 mg/dL 7-23 L GLUCOSE (test code = 8867457670) 99 mg/dL 70-110 CREATININE (test code = 1337032261) 0.44 mg/dL 0.50-1.04 L TOTAL BILI (test code = 0195144427) 0.7 mg/dL 0.1-1.1 CALCIUM (test code = 9393673807) 8.9 mg/dL 8.6-10.6 T PROTEIN (test code = 1776077821) 7.8 g/dL 6.3-8.2 ALBUMIN (test code = 2198706025) 3.9 g/dL 3.5-5.0 ALK PHOS (test code = 9949019836) 85 U/L 34-122 ALTv (test code = 1742-6) 7 U/L 5-35 AST(SGOT) (test code = 6933832892) 21 U/L 13-40 eGFR (test code = 55327-4) 137.0 mL/min/1.73m2 CKD-EPI eGFR (2020). Assuming creatinine has been stable day-to-day for at least three months, the eGFR indicates Category G1 (>= 90 mL/min/1.73 m2) Lab Interpretation (test code = 61920-5) Abnormal [facility] Hospital[facility]ase2024-[facility] 22:55:38* Test Item Value Reference Range Interpretation Comme nts LIPASE (test code = 0088975052) 31 U/L 0-220 Lab Interpretation (test cod e = 80508-1) Normal [facility] HospitalAmylase2024-01-10 22:54:37* Test Item Value Reference Range Interpretation Comme nts CAIT (test code = 0856767995) 88 U/L 35-110 Lab Interpretation (test cod e = 97228-0) Normal [facility] Urinalysis w/o Specific Bmwvaop4808-93-89 20:16:00* Test Item Value Reference Range Interpretation [...] = 3257) n/a Negative - Negati ve [facility] Ur[facility] w/o Specific Xijqzkg3666-09-52 20:16:00* Test Item Value Reference Range Interpretation [...] = 3257) n/a Negative - Negati ve [facility] HospitalMATERNAL SERUM SCREEN [id number]-K3440-41S2576-90-09 19:00:00* Test Item Value Reference Range Interpretation Comments INTERPRETATION:-Q (test code = 82327-8) SEE NOTE Screen negative for open NTD. MSAFP RISK OPEN NTD-Q (test code = 86013-2) 1 IN 2839 $MSAFP-Q (test code = 1834-1) 58.9 ng/mL ADJ MULTIPLE OF MEDIAN-Q (test code = 08888-5) 1.08 -Q (test code = 8251-1) See Below This is a screen ing test, not a diagnostic test. Thisrisk assessment report is based in part on demographicdata provided by the ordering physician. Please notifythe laboratory promptly if any data are incorrect. Forassistance with recalculations, please call your [facility] laboratory. For assistance withinterpretation of these results, please contact [facility] [employer] genetic counselor or [phone]). Interpretive CutoffsScreen Positive for Open NTD: > or = 2.50 adjusted MOM ?> or = 1.90 adjusted MOM for ?insulin-dependent diabetics ?> or = 4.00 adjusted MOM for ?twins ?> or = 3.50 adjusted MOM for ?twins insulin-dependent ?diabetics ?> or = 4.50 adjusted MOM for ?tripletsFor additional information, please refer [email or web address](This link is being provided for informational/education al purposes only.) GESTATIONAL AGE-Q (test code = 38998-7) 20.1 weeks MATERNAL WEIGHT-Q (test code = 3142-7) 164 lbs EST'D DATE OF DELIVERY-Q (test code = 67083-8) 01/29/2024 SIMONA DETERMINED BY-Q (test code = 33012-0) ULTRASOUND MOTHER'S ETHNIC ORIGIN-Q (test code = 77989-7) NUMBER OF FETUSES-Q (test code = 30999-6) 1 INSULIN-DEPEND DIABETIC-Q (test code = 70063-0) NO REPEAT SPECIMEN-Q (test code = 92508-8) NO HX OF NEURAL TUBE DEFECTS-Q (test code = 60237-8) NO PREV DOWN SYND-Q (test code = 15527-8) NO DONOR EGG-Q (test code = 01814-3) NO DONOR AGE: EGG RETRIEVAL-Q (test code = 19288-1) NOT GIVEN SUSANNAH (test code = SUSANNAH) PERFORMED BY [facility]; [address] [place] [address]; ULISSES ROMERO MD [facility] URINALYSIS W/O SPECIFIC WUJYGXZ8426-86-25 15:44:00* Test Item Value Reference Range Interpretation [...] = 3257) n/a Negative - Negati ve [facility] URINALYSIS W/O SPECIFIC TGKGAQW1280-40-74 16:37:00* Test Item Value Reference Range Interpretation [...] = 3257) n/a Negative - Negati ve [facility] WITH MVXO5574-72-39 20:39:03* Test Item Value Reference Range Interpretation Comme nts WBC (test code = 6690-2) 4.80 See_Comment [Automated [employer]] The system which generated this result transmitted reference range: 4.30 - 11.10 10*3/?L. The reference range was not used to interpret this result as normal/abnormal. RBC (test code = 789-8) 4.55 See_Comment [Automated [employer] [address]] The system which generated this result transmitted [...] 33.8 g/dL 31.6-35.1 RDW-SD (test code = 09165-9) 41.6 fL 39.0-49.9 RDW-CV (test code = 788-0) 13.2 % 12.0-15.5 PLT (test code = 777-3) 240 See_Comment [Automated [employer] [address]] The system which generated this result transmitted reference range: 166 - 358 10*3/?L. The reference range was not used to interpret this result as normal/abnormal. MPV (test code = 30214-7) 13.5 fL 9.5-12.9 H IPF % (test code = 3212571425) 7.3 % 1.3-7.7 Platelet count measured by fluorescence method. NRBC/100 WBC (test code = 5251371243) 0.0 See_Comment [Automated me ssage] The system which generated this result transmitted reference range: 0.0 - 10.0 /100 WBCs. The reference range was not used to interpret this result as normal/abnormal. NRBC x10^3 (test code = 7451816119) See_Comment [Automated messa ge] The system which generated this result transmitted reference range: 10*3/?L. The reference range was not used to interpret this result as normal/abnormal. GRAN MAT (NEUT) % (test code = 770-8) 66.3 % IMM GRAN % (test code = 0730993017) 0.20 % LYMPH % (test code = 736-9) 24.8 % MONO % (test code = 5905-5) 7.7 % EOS % (test code = 713-8) 0.6 % BASO % (test code = 706-2) 0.4 % GRAN MAT x10^3(ANC) (test code = 1804108032) 3.18 10*3/uL 1.88-7.09 IMM GRAN x10^3 (test code = 7462102525) 0.00-0.06 LYMPH x10^3 (test code = 731-0) 1.19 10*3/uL 1.32-3.29 L MONO x10^3 (test code = 742-7) 0.37 10*3/uL 0.33-0.92 EOS x10^3 (test code = 711-2) 0.03 10*3/uL 0.03-0.39 BASO x10^3 (test code = 704-7) 0.01-0.07 Lab Interpretation (test code = 51980-9) Abnormal [facility] HospitalGLUCOSE 1 HOUR POST QURXLBUO7999-74-74 19:47:18* Test Item Value Reference Range Interpretation Comme nts GLUC 1 HR (test code = 4826132068) 68 mg/dL 120-170 L Lab Interpretation (test cod e = 20886-9) Abnormal [facility] HospitalPRENATAL WORKUP, BLOOD EMYY3653-41-53 18:18:00 * Test Item Value Reference Range Interpretation Comme nts ABO & RH (test code = 20) O Positive IAT (test code = 1185) Negative [facility] W/O SPECIFIC SQPWINX8566-04-40 14:16:00* Test Item Value Reference Range Interpretation [...] = 3257) na Negative - Negati ve [facility] W/O SPECIFIC [id number] 19:54:00* Test Item Value Reference Range Interpretation [...] = 3257) N/A Negative - Negati ve [facility] HospitalPOCT [id number] 16:44:00* Test Item Value Reference Range Interpretation Comme nts POCT PREG (test code = 1605) Positive faint On board controls acceptable with C Line (test code = 3574) Yes POCT PREG LOT # (test code = 3575) POCT PREG TEST DATE ( test code = 3576) [facility]PO[facility] ASOO2709-60-39 16:44:00* Test Item Value Reference Range Interpretation Comme nts POCT PREG (test code = 1605) Positive faint On board controls acceptable with C Line (test code = 3574) Yes POCT PREG LOT # (test code = 3575) POCT PREG TEST DATE ( test code = 3576) [facility] History and Physical Notes Date/Time Note Provider Source 2024-01-23 07:41:32 TRIAGE HISTORY & PHYSICAL IDENTIFYING DATA Junior Lester is 28 year old, /White, 39w1d, female with SIMONA 01/29/2024, by Ultrasound. : 1995 Primary Care Physician: PATIENT DOES NOT HAVE A PCP CHIEF COMPLAINT Repeat CD at 39 wks HISTORY OF PRESENT ILLNESS Junior Lester is a 28 year old female @ [...] N/A 10/28/2020 Surgeon: Laron Mooney MD; Location: [facility] Labor and Delivery OR Location SECTION N/A 01/30/2022 Surgeon: Laron Mooney MD; Location: [facility] LABOR AND DELIVERY OR LOCATION TOOTH EXTRACTION [...] . Negative screening. ASSESSMENT AND PLAN Junior Lester is a 28 year old at 39w1d who presents for repeat CD. Previous CD x 3 - admit for repeat CD LGA Body mass index is 33.87 kg/m?. PVT of Dr. Mooney, please see OB Summary for more details Laron Mooney MD [facility] 2024-01-10 20:41:33 ANTEPARTUM HISTORY & PHYSICAL IDENTIFYING DATA Junior Lester is 28 year old, /White, 37w2d, female [...] N/A 10/28/2020 Surgeon: Laron Mooney MD; Location: [facility] Labor and Delivery OR Location SECTION N/A 01/30/2022 Surgeon: Laron Mooney MD; Location: [facility] LABOR AND DELIVERY OR LOCATION TOOTH EXTRACTION [...] 5 in all four extremities CL/long per HOME INSPECTOR OF LABORATORY, PATHOLOGY, 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 DATA Lab [...] fluids Stable for discharge Magdalene Lozoya MD [facility] 2023-10-10 17:40:05 TRIAGE HISTORY & PHYSICAL IDENTIFYING DATA Junior Lester is 28 year old, /White, 24w1d, female with SIMONA 01/29/2024, by Ultrasound. : 1995 Primary Care Physician: PATIENT DOES NOT HAVE A PCP CHIEF COMPLAINT Sent from clinic for further evaluation HISTORY OF PRESENT ILLNESS Junior Lester is a 28 year old female @ [...] N/A 10/28/2020 Surgeon: Laron Mooney MD; Location: [facility] Labor and Delivery OR Location SECTION N/A 01/30/2022 Surgeon: Laron Mooney MD; Location: [facility] LABOR AND DELIVERY OR LOCATION TOOTH EXTRACTION [...] . Negative screening. ASSESSMENT AND PLAN Junior Lester is a 28 year old at 24w1d who presents with vomiting/fever/chills. Fever/chills -COVID and flu tests negative -Likely due to pyelonephritis Pyelonephritis -Will start Rocephin 2 g IV -Will continue observation overnight Hyponatremia -Received normal saline fluid bolus -Will recheck BMP in a.m. CD x 3 Strip appropriate for gestational age. [place] quiescent. Private of Dr. Mooney, please see OB summary for more details Laron Mooney MD [facility] Notes Date/Time Note Provider Source 2025-01-07 14:06:02 Noted Dimitri Bunn RN 01/07/2025 2:06 PM Dimitri Bunn RN [facility] 2025-01-07 13:49:27 Pt called to provide correct LMP date. LMP 12/05/24 Conchita Gill [facility] 2024-11-15 22:29:47 Pt given printed and verbal discharge instructions regarding acute cystitis without hematuria, fever, and dysuria, encouraged hydration, Prescriptions provided to preferred pharmacy Discussed ibuprofen and to take with food to avoid GI distress. Discussed antibiotic therapy and to take until all completed unless adverse reaction occurs - if occurs, discontinue medication and follow up with pcp/seek medical attention Pt verbalized understanding of instructions, pt awake alert oriented, resp reg unlabored, skin w/d, color appropriate for race, moves all ext well,pt encouraged to follow up with pcp Advised to seek medical attention for new/prolonged/worsening of symptoms No adverse reaction to meds given in ER noted upon discharge Awake, alert oriented, resp reg unlabored, skin w/d, pt leaving amb with steady gait, in no apparent distress, CLEANING COOKING Steve Crane RN [facility] 2024-11-15 18:50:29 Patient reports abdominal pain (LLQ), back pain, dysuria for 3 days. Pt has fever of 103.1. COMPUTER PUBLISHER med: none YMA Stoner RN [facility] 2024-10-17 15:30:00 Images from the original note were not included. Venipuncture collection performed by clean technique on the left anticubitus. Total of 1 attempts were made. Slight pressure and a bandage/dressing were applied to the site(s). The patient experienced no complications. The following specimens were processed according to instructions and sent to [facility] laboratories per lab order on 10/17/2024: LT BLUE SST 2 RED 1 LAV PPT DK GREEN (LiHep) DK GREEN (SodH) ROSE DK BLUE (K2) DK BLUE (S) ACD Blood Culture NIPT/NTD [facility] 2024-10-03 01:36:34 PT D/C home. GCS15, VS stable. Given D/C paperwork. Pt ambulatory at time of discharge. Pt educated on med usage, follow up care, s/s worsening condition, need for hydration. Pt verbalized understanding. Pt ambulated from ED in NAD with her baby and family. [facility] 2024-10-03 00:01:38 Pt presents to ED with c/o n/v/d since yesterday morning. Pt reports having upper abd pain, twisting cramping sensation. Antidiarrheal taken around 11am LMP: currently on it. 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 female with upper abdominal pain with n/v/d x 2 days. Denies fever/chills. Past Medical History/Immunizations: Past Medical History: Diagnosis Date Abnormal uterine bleeding Anemia Anxiety Irregular menses Trigeminal neuralgia 10/12/2019 Tetanus received in last 5 years: Yes Allergies: No Known Allergies Past Social History: Tobacco Use Never smoked or used smokeless tobacco. Vaping Use Never used Alcohol Use Not Currently. Drug Use Not Currently; Marijuana. Comments: Denied Opiate pain med use or abuse / has not smokded THC in 2 years Sexual Activity Sexually active; Partners: Male; Control/Protection: None. Past Surgical History: Past Surgical History: Procedure Laterality Date SECTION 03/06/2019 SECTION N/A 10/28/2020 Surgeon: Laron Mooney MD; Location: [facility] Labor and Delivery OR Location SECTION N/A 01/30/2022 Surgeon: Laron Mooney MD; Location: [facility] LABOR AND DELIVERY OR LOCATION SECTION N/A 01/23/2024 Surgeon: Laron Mooney MD; Location: [facility] LABOR AND DELIVERY OR LOCATION TOOTH EXTRACTION wisdom teeth Review of Systems: Review of Systems Constitutional: Negative for chills and fever. HENT: Negative. Eyes: Negative. Respiratory: Negative. Breasts: Negative. Cardiovascular: Negative. Gastrointestinal: Positive for abdominal pain, diarrhea, nausea and vomiting. Negative for abdominal distention. Genitourinary: Negative. Musculoskeletal: Negative. Skin: Negative. Neurological: Negative. Psychiatric/Behavioral: Negative. Endocrine: Endocrine negative Physical Exam: ED Triage Vitals [10/03/24 0004] Weight 72.6 kg (160 lb) Actual or estimated Height 1.575 m (5' 2") BP 112/85 Pulse 92 Resp 16 Temp 36.8 ?C (98.2 ?F) Temp src SpO2 99 % Measured on Room air Physical Exam Vitals and nursing note reviewed. Constitutional: General: She is not in acute distress. Appearance: Normal appearance. She is not ill-appearing, toxic-appearing or diaphoretic. HENT: Head: Normocephalic and atraumatic. Nose: Nose normal. Mouth/Throat: Mouth: Mucous membranes are dry. Eyes: Pupils: Pupils are equal, round, and reactive to light. Cardiovascular: Rate and Rhythm: Normal rate and regular rhythm. Pulses: Normal pulses. Heart sounds: Normal heart sounds. Pulmonary: Effort: Pulmonary effort is normal. Abdominal: General: There is no distension. Palpations: Abdomen is soft. There is no mass. Tenderness: There is no abdominal tenderness. There is no right CVA tenderness, left CVA tenderness, guarding or rebound. Hernia: No hernia is present. Skin: General: Skin is warm. Capillary Refill: Capillary refill takes less than 2 seconds. Neurological: General: No focal deficit present. Mental Status: She is alert. Psychiatric: Mood and Affect: Mood normal. Radiology: No orders to display Lab Results: Lab Results CBC WITH DIFF - Abnormal Result Value Ref Range WBC 9.63 4.30 - 11.10 10*3/?L RBC 5.21 3.93 - 5.25 10*6/?L HGB 15.3 (*) 11.6 - 15.0 g/dL HCT 44.3 35.7 - 45.2 % MCV 85.0 80.6 - 95.5 fL MCH 29.4 25.9 - 32.8 pg MCHC 34.5 31.6 - 35.1 g/dL RDW-SD 38.8 (*) 39.0 - 49.9 fL RDW-CV 12.6 12.0 - 15.5 % PLT 324 166 - 358 10*3/?L MPV 11.9 9.5 - 12.9 fL NRBC/100 WBC 0.0 0.0 - 10.0 /100 WBCs NRBC x10 3 <0.01 10*3/?L GRAN MAT (NEUT) % 77.9 % IMM GRAN % 0.30 % LYMPH % 14.6 % MONO % 5.3 % EOS % 1.7 % BASO % 0.2 % GRAN MAT x10 3 (ANC) 7.50 (*) 1.88 - 7.09 10*3/uL IMM GRAN x10 3 0.03 0.00 - 0.06 10*3/uL LYMPH x10 3 1.41 1.32 - 3.29 10*3/uL MONO x10 3 0.51 0.33 - 0.92 10*3/uL EOS x10 3 0.16 0.03 - 0.39 10*3/uL BASO x10 3 <0.03 0.01 - 0.07 10*3/uL COMP. METABOLIC PANEL (51506) - Abnormal NA 136 135 - 145 mmol/L K 3.6 3.5 - 5.0 mmol/L CL 105 98 - 108 mmol/L CO2 TOTAL 20 (*) 23 - 31 mmol/L AGAP 11 2 - 16 BUN 9 7 - 23 mg/dL GLUCOSE 97 70 - 110 mg/dL CREATININE 0.65 0.50 - 1.04 mg/dL TOTAL BILI 0.6 0.1 - 1.1 mg/dL CALCIUM 9.4 8.6 - 10.6 mg/dL T PROTEIN 8.4 (*) 6.3 - 8.2 g/dL ALBUMIN 4.8 3.5 - 5.0 g/dL ALK PHOS 106 34 - 122 U/L ALTv 15 5 - 35 U/L AST(SGOT) 20 13 - 40 U/L eGFR 123.9 mL/min/1.73m2 URINALYSIS - Abnormal APPEARANCE Slightly Cloudy (*) Clear COLOR Straw (*) Yellow PH 6.0 4.8 - 8.0 SP GRAVITY 1.005 1.003 - 1.030 GLU U QUAL Normal Normal BLOOD 3+ (*) Negative KETONES Negative Negative PROTEIN Negative Negative UROBILIN Normal Normal BILIRUBIN Negative Negative NITRITE Negative Negative LEUK TUNDE Negative Negative RBC/HPF <1 0 - 3 HPF WBC/HPF 0 0 - 5 HPF BACTERIA Negative Negative SQ EPITH 8 HPF POCT TEST - Normal POCT PREG Negative On board controls acceptable with C Line Yes POCT PREG LOT # [id number] POCT PREG TEST DATE 07/05/2025 INFLUENZA A/B RSV COVID NAAT - Normal Influenza A NAAT Negative Negative Influenza B NAAT Negative Negative RSV by PCR Negative Negative SARS-CoV-2 NAAT Negative Negative LIPASE EKG: If EKG completed, see Procedure Note. Orders and Treatments: Orders Placed This Encounter Procedures Cbc with Diff Comp. Metabolic Panel (57147) Urinalysis POCT Test Influenza A B RSV COVID NAAT Lipase Lab Only COVID Interpretation Orders Placed This Encounter Medications ondansetron (ZOFRAN (PF)) injection 4 mg NaCl 0.9% (NS) bolus infusion 1,000 mL famotidine (PEPCID (PF)) injection 20 mg dicyclomine (BENTYL) tablet 20 mg First Provider Eval: ED Events Date/Time Event User Comments 10/03/24 0004 First Provider Evaluation WILLIAM LOPEZ MD -- 10/03/24 0014 Medical Screening Begins WILLIAM LOPEZ MD -- ED COURSE Diagnosis/Impression as of 10/03/24 0124 Vomiting, unspecified vomiting type, unspecified whether nausea present Procedures: Procedures MDM: Medical Decision Making Amount and/or Complexity of Data Reviewed Labs: ordered. Risk Prescription drug management. A) Gastroenteritis Disposition/Condition: Home, Zofran, Bentyl , ER warnings. ED Disposition None Discharge Medications: Patient's Medications No medications on file Follow-up: PCP Electronically signed by: William Lopez MD 10/03/[address] [facility] 2024-05-26 16:45:00 Images from the original note were not included. Venipuncture collection performed by clean technique on the left anticubitus. Total of 1 attempts were made. Slight pressure and a bandage/dressing were applied to the site(s). The patient experienced no complications. The following specimens were processed according to instructions and sent to [facility] laboratories per lab order on 05/26/2024: LT BLUE SST 1 RED LAV PPT DK GREEN (LiHep) DK GREEN (SodH) ROSE DK BLUE (K2) DK BLUE (S) ACD Blood Culture NIPT/NTD [facility] 2024-01-29 10:19:24 Clinical notes faxed as requested. Dimitri Bunn RN 01/29/2024 10:20 AM Dimitri Bunn RN [facility] 2024-01-29 10:06:35 Heather with [employer] needs clinical notes for breast pump fax [phone]. Tracy Wilson [facility] 2024-01-24 16:11:10 Fax received from [employer] requesting an order for an electric breast pump. Form signed and faxed back. Will scan and upload form to [employer]. [facility] 2024-01-24 13:50:00 This note was copied from a baby's chart. Evaluation Situation Follow up visit Background Baby Boy is 1 days old, born weighing 3570g, and has lost 4.20% of weight. Gestational Age: 39w1d at FEEDING STATUS Expressed breast milk supplementation via syringe Formula supplementation via bottle MATERNAL STATUS Pumping Hand expressing Assessment & Recommendation ASSISTANCE Mom denies problems with or latching so far. Mom was in the cross cradle hold when I entered the room. appeared to be latch on deeply and would slide down on the nipple throughout the feeding and mom would readjust latch. Mom was encouraged to use a pillow under baby to help lift baby up to breast level and prevent him from slipping of the breast. Mom verbalized understanding. education provided. All questions answered. Mom does not have any other questions or concerns at this time. Mom instructed on how to contact Clinical Writer for assistance with feedings or to answer questions while in the hospital. Mom Verbalized understanding. Assessment (most recent) Assessment - 01/24/24 1345 General Information Visit Initial Mom's age (years) 26 years Gestational age 39 weeks 5 Parity 4 Living Children 4 Feeding plan Breast and Formula Breastfeed previously Yes Duration 3 months plans As long as possible Breast Pump Ordered Breast Pump Electric Delivery method Reason for repeat Infant Oral Assessment Oral assessment New assessment Date of 01/23/24 Time of 0826 location Mother Baby Unit Chin Normal Palate assessment Normal Tongue assessment Normal Restricted tongue motion observed None Breast Assessment Breast Assessment Initial Symmetry Symmetrical Size L (D-DD) Shape Globular;Pendulous Nipple & Areola Assessment Left Areola Pliable Right Areola Pliable Left Nipple Colostrum visible;Intact;Everted Right Nipple Colostrum visible;Intact;Everted Literature Resources Resources Understanding Mother and Baby Care Education Infant hunger cues;On-demand feeds at least 8 or more over 24 hours;Benefits of skin to skin contact;Signs of an effective latch;Use/settings of pump;Pump frequency;Benefits of breast massage and hand expression;Engorgement signs and treatment;Risks of mastitis and signs, seek medical attention immediately Handouts given Salvadorean Clinical Writer Observation Pumping Yes Assist with latch Position right side Cross cradle; latched effectively;Suckled in coordinated bursts;Audible swallows Interventions Motherlove nipple cream;Pump start (massage, compression, expression);Breast massage Mother demonstrated teach back of Positioning and latching at breast;Breast massage and hand expression;Proper use of breast pump equipment Follow up Mom will call staff Recommended Feeding Plan Recommended feeding plan On-demand , 8-12 times in 24 hours not to exceed 6 hours between feeds;Offer both breasts prior to formula supplementation;Frequent [id number] time with parents;Pump/hand express minimum 8 times in 24 hours including nights. Pump for 15-25 min. OTHER $ SERVICES Initial MADELIN Grossman, RN, IBCLC Tyler Pandya RN [facility] 2024-01-24 12:00:00 Problem: Intrapartum process (including labor pain) Goal: Reduction in pain sensation 01/24/2024 1202 by Neeru Castellano RN Outcome: Resolved 01/24/2024 0702 by Neeru Castellano RN Outcome: Progressing as expected 01/24/2024 0701 by Neeru Castellano RN Outcome: Progressing as expected Problem: Pain Goal: Reduction in pain sensation 01/24/2024 1202 by Neeru Castellano RN Outcome: Resolved 01/24/2024 0702 by Neeru Castellano RN Outcome: Progressing as expected 01/24/2024 0701 by Neeru Castellano RN Outcome: Progressing as expected Goal: Control of pain at or below patient's documented comfort goal 01/24/2024 1202 by Neeru Castellano RN Outcome: Resolved 01/24/2024 0702 by Neeru Castellano RN Outcome: Progressing as expected 01/24/2024 0701 by Neeru Castellano RN Outcome: Progressing as expected Problem: Discharge Planning - Goal: Adequate for discharge 01/24/2024 1202 by Neeru Castellano RN Outcome: Resolved 01/24/2024 0702 by Neeru Castellano RN Outcome: Progressing as expected 01/24/2024 0701 by Neeru Castellano RN Outcome: Progressing as expected Goal: Mood stable 01/24/2024 1202 by Neeru Castellano RN Outcome: Resolved 01/24/2024 0702 by Neeru Castellano RN Outcome: Progressing as expected 01/24/2024 0701 by Neeru Castellano RN Outcome: Progressing as expected Neeru Castellano RN [facility] 2024-01-24 07:00:00 Problem: Intrapartum process (including labor pain) Goal: Reduction in pain sensation 01/24/2024 0702 by Neeru Castellano RN Outcome: Progressing as expected 01/24/2024 07 by Neeru Castellano RN Outcome: Progressing as expected Problem: Pain Goal: Reduction in pain sensation 01/24/2024 07 by Neeru Castellano RN Outcome: Progressing as expected 01/24/2024 07 by Neeru Castellano RN Outcome: Progressing as expected Problem: Discharge Planning - Goal: Adequate for discharge 01/24/2024 07 by Neeru Castellano RN Outcome: Progressing as expected 01/24/2024 07 by Neeru Castellano RN Outcome: Progressing as expected Goal: Mood stable 01/24/2024 07 by Neeru Castellano RN Outcome: Progressing as expected 01/24/2024700 by Neeru Castellano RN Outcome: Progressing as expected [facility] 2024-01-23 19:35:51 Problem: Pain Goal: Reduction in pain sensation Outcome: Progressing as expected Goal: Control of pain at or below patient's documented comfort goal Outcome: Progressing as expected Problem: Discharge Planning - Goal: Adequate for discharge Outcome: Progressing as expected Goal: Mood stable Outcome: Progressing as expected Brittany Knox RN [facility] 2024-01-23 09:10:21 Delivery Date: 01/23/2024 Delivery Time: 8:26 AM DELIVERY BY SECTION Date of Service: : 01/23/2024 at 8:26 AM Admitted for: repeat CD @ 39 wks, Repeat Lower uterine transverse section with no extension, no BTL, Pfannenstiel, Closed with suture, EBL 500 cc, No complications, Findings: adhesions Delivery Summary [place] Sex: male Weight: 3570 g 1 Minute 5 Minute 10 Minute Totals: 8 9 Primary Indication: Junior Lester is a 28 year old female @ 39w1d, previous CD x 3. The patient was taken to the operating room for a repeat section due to: Elective Repeat Section at 39w1d weeks. Procedures: Repeat Lower uterine transverse section with no extension Specimens Removed: Placenta Surgeon: Laron Mooney MD Report: Prophylactic antibiotic, Ancef was given before patient was taken to OR. After arrival to the operating room patient was placed in the supine position with left lateral tilt after administration of spinal anesthesia. Laparotomy A pfannenstiel incision was made through the anterior abdominal wall with #10 scalpel. The incision was extended sharply with the #10 scalpel through the subcutaneous tissue to the level of fascia. The fascia was entered sharply with a #10 scalpel (Pfannenstiel) in the midline and extended in semi-elliptical fashion with Mcelroy scissor. The underlying muscles were dissected off the overlying fascia by grasping the superior aspect of fascia with two landen clamps and blunt dissection was used along the midline. The fascia was further from rectus muscle with Mcelroy scissor and/or cautery. In similar fashion, the lower aspect of fascia was also grsaped with two Landen clamps and both blunt and sharp dissection was used to separate fascia from rectus muscle. The rectus muscles were in the midline sharply with Mcelroy scissor dissection and sharply with scalpel. The peritoneum was then entered sharply by grasping and tenting the peritoneum with two hemostats and enter with Metzenbaum scissor. The peritoneal incision was then extended superiorly and inferiorly under direct visualization with care being taken to avoid bladder and bowel. There were adhesions which were taken down with autery and/or Metzebaum scissor. The omentum was adhered to the left rectus muscle. The peritoneal incision was enlarged bluntly by lateral traction from the surgeon's and minister assistant's hand. Delivery A bladder flap was developed by grasping with Nepalese forcep and enter with Metzenbaun scissor. Then sharp and blunt dissection with Metzenbaum scissor and fingers were performed. A low transverse hysterotomy was made then with #10 scalpel and extended laterally and cephalad with fingers in a low transverse fashion with Manu Aguilar technique with care being taken to avoid injury to the fetus. The amniotic (membranes) were then entered with spontaneous rupture of membrane, and the amniotic fluid was noted to be moderate meconium. The head was delivered via an obstetric vacum. The vacuum cup was applied to head and delivered through the hysterotomy incision in a non-traumatic fashion with aid of fundal pressure applied by the assistant department manager surgeon. Specify the applications, number of tractions, number of pop-off occurred: 1, 2, 0 . The body was delivered with traction on the head along with fundal pressure. After delivery of body-bulb suction was performed from oropharynx and nostril with removal of thin meconium. Fetus was delivered in cephalic presentation. With delivery the baby, no extension was noted.Delayed cord clamping was performed for 30-60 seconds. Placenta was delivered spontaneously with steady traction on cord and manual separation of placenta from uterine wall. Closure Uterine cavity was cleaned after placental delivery with lap sponge x 2. The hysterotomy was closed in one layer with stitches using 1-0 Monocryl with continuous locking stitches. Hemostasis was achieved as needed with electrocautery. The ovaries/tubes/uterine surface were evaluated. They were found to be normal. Rectus muscle was re-approximated with 2-0 Monocryl. Fascia was closed with running stitches using 0-Biosyn . Hemostasis was checked for and found to be adequate. The subcutaneous tissue was irrigated and hemostasis was achieved where needed with electrocautery. The skin was then closed with subcutaneous stitches using 3-0 Vicryl sutures. The incision was cleaned and covered with a compression bandage and the procedure considered to be complete at this time. Intraoperative Complications: None Uterotonics: 30 units of pitocin mixed in 500 cc of LR Disposition: The patient tolerated the procedure well. She was recovered in the Labor and Delivery Room with routine care in stable condition, with a contracted uterus and normal transvaginal bleeding. The was sent to Transition Nursery. The placenta was not sent to pathology. Laron Mooney MD 01/23/2024 9:15 AM [facility] 2024-01-23 09:05:00 Problem: Intrapartum process (including labor pain) Goal: Absence of or reduction of complications of labor Outcome: Resolved Goal: Able to cope with pain Outcome: Resolved Goal: Adequate to move to next level of care Outcome: Resolved Goal: Reduction in pain sensation Outcome: Progressing as expected Problem: Pain Goal: Reduction in pain sensation Outcome: Progressing as expected Goal: Control of pain at or below patient's documented comfort goal Outcome: Progressing as expected Problem: Discharge Planning - Goal: Adequate for discharge Outcome: Progressing as expected Goal: Mood stable Outcome: Progressing as expected [facility] 2024-01-17 08:00:00 Age: [age] year old GA: 38w2d -Doing well without concerns today -History of pyelonephritis: Diagnosed on 10/10/2023. Patient not taking Keflex suppression as prescribed -CD x 3: Repeat CD at 39 weeks, tentatively plan for 01/23/2024, unless clinically indicated otherwise. Right lateral placenta. -LGA: 1 hour within normal limits. Healthy diet and exercise discussed. Appropriate interval growth on 12/24/2023 -HSV 1 IgG positive: Suppression at 35 to 36 weeks unless clinically indicated otherwise - Daily kick counts and labor precautions given -Follow-up for incision check and in 4 to 6 weeks for visit [facility] 2024-01-10 18:42:33 Patient presents with pain in back and abdomen for the past 45 minutes. Patient is 37-[address] Mooney. A1 - x 3 Report called to L&D. Updated on patient's condition and patient transported by wheelchair to department. Jody Damico RN [facility] 2024-01-10 08:15:00 Age: [age] year old GA: 37w2d -Doing well without concerns today -History of pyelonephritis: Diagnosed on 10/10/2023. Patient not taking Keflex suppression as prescribed -CD x 3: Repeat CD at 39 weeks, tentatively plan for 01/22/2024, unless clinically indicated otherwise. Right lateral placenta. -LGA: 1 hour within normal limits. Healthy diet and exercise discussed. Appropriate interval growth on 12/24/2023 -HSV 1 IgG positive: Suppression at 35 to 36 weeks unless clinically indicated otherwise - Daily kick counts and labor precautions given - RTC in 1 wk for PN [facility] 2024-01-03 15:30:00 Images from the original note were not included. Venipuncture collection performed by clean technique on the left anticubitus. Total of 1 attempts were made. Slight pressure and a bandage/dressing were applied to the site(s). The patient experienced no complications. The following specimens were processed according to instructions and sent to [facility] laboratories per lab order on 01/03/2024: LT BLUE SST RED LAV 1 PPT DK GREEN (LiHep) DK GREEN (SodH) ROSE DK BLUE (K2) DK BLUE (S) ACD Blood Culture NIPT/NTD [facility] 2024-01-03 13:30:00 Age: [age] year old GA: 36w2d - Doing well without concerns today -History of pyelonephritis: Diagnosed on 10/10/2023. Patient not taking Keflex suppression as prescribed -CD x 3: Repeat CD at 39 weeks, tentatively plan for 01/22/2024, unless clinically indicated otherwise. Right lateral placenta. -LGA: 1 hour within normal limits. Healthy diet and exercise discussed. Appropriate interval growth on 12/24/2023 -HSV 1 IgG positive: Suppression at 35 to 36 weeks unless clinically indicated otherwise This reviews what Dr. Mooney talked about at your 36 week talk: 1. Go to Labor and Delivery when your contractions are 5-7 minutes apart and you have been able to time them for an hour. If you live more than 30 minutes from the hospital, then go when they are 10 minutes apart and you have been able to time them for an hour. 2. BUT, there are 4 reasons to go to Labor and Delivery REGARDLESS of what else is happening, whether you are salom[place] or not: 1. If your water breaks - - - it may be a gush or a constant trickle. If you are not sure, always come in to be checked. 2. Bleeding like your period. 3. If your baby's movements are less than 10 in an hour. If you are concerned this might be the case, drink a tall glass of cold fluids, lay down on your side on the couch or your bed and see how long it takes to note 10 movements - if less than 10, this needs to be evaluated immediately. 4. Contractions or Pain that is continuous. Normal labor contractions last only 45 seconds - 1 minute. cephalic presentation GC/CT and GBS obtained, CBC ordered Zika precautions reviewed Contraception PP: Nexplanon Delivery consent signed today RTC in 1 wk for PN [facility] 2024-01-02 11:15:11 Title 19 form received via fax for stockings. Stamped and faxed back. Dimitri Bunn RN 01/02/2024 11:15 AM Dimitri Bunn RN [facility] 2023-12-31 13:36:57 Lucia in L&D advised. Verbalized understanding. YVONNE LAURENT RN 12/31/2023 1:38 PM Yvonne Laurent RN [facility] 2023-12-20 11:15:00 Images from the original note were not included. Venipuncture collection performed by clean technique on the left anticubitus. Total of 1 attempts were made. Slight pressure and a bandage/dressing were applied to the site(s). The patient experienced no complications. The following specimens were processed according to instructions and sent to [facility] laboratories per lab order on 12/20/2023 : LT BLUE SST 1 RED LAV 1 PPT DK GREEN (LiHep) DK GREEN (SodH) ROSE DK BLUE (K2) DK BLUE (S) ACD Blood Culture NIPT/NTD T [facility] 2023-12-20 10:30:00 Age: [age] year old GA: 34w2d - Doing well without concerns today -Patient states that she has started taking magnesium and potassium supplements [id number] randomly, maybe every 3 days. BMP and magnesium serum ordered. Educated on taking supplements. -History of pyelonephritis: Diagnosed on 10/10/2023. States that she stopped taking Keflex suppression about 1-1/2 weeks ago as states that she has been taking a lot of medications. Educated on the importance of continuing Keflex suppression for the remainder of the . -CD x 3: Repeat CD at 39 weeks, tentatively plan for 01/22/2024, unless clinically indicated otherwise. Right lateral placenta. -LGA: 1 hour within normal limits. Healthy diet and exercise discussed. Follow-up growth scheduled for 12/24/2023 -HSV 1 IgG positive: Suppression at 35 to 36 weeks unless clinically indicated otherwise -Daily kick counts -Follow-up in 2 weeks for visit [facility] 2023-12-13 12:56:41 Patient left prior to discharge instructions [facility] 2023-12-13 11:24:08 Patient reports that she has been feeling ill "congestion, runny nose, ear aches for 2 weeks". Taking Tylenol for the symptoms. at 33 weeks. T Jody Damico RN [facility] 2023-12-13 10:27:13 Spoke with patient. Patient states she has been sick for almost 2 weeks. Patient reports body aches. Patient reports her sickness is making it hard to sleep. Patient advised to use pillow for comfort. Patient reports she does take atarax as prescribed but it makes her "fall in to a deep sleep" and she doesn't like it. Patient advised to be seen by PCP/urgent care for prolonged sick symptoms. Patient verbalized understanding. Dimitri Bunn RN 12/13/2023 10:28 AM Dimitri Bunn RN [facility] 2023-12-13 09:14:29 Attempted to contact patient. No answer, unable to leave VM . Dimitri Bunn RN 12/13/2023 9:14 AM [facility] 2023-12-13 08:24:12 Patient calling says she not feeling well says she extremely fatigued has not slept in nights. Tracy Wilson [facility] 2023-12-05 10:30:00 Age: [age] year old GA: 32w1d - Doing well - PUPPS: Less itching on the abdomen. Still has itching on the popliteal areas. Discussed calamine lotion. Atarax and hydrocortisone cream as needed. -Excessive weight gain: TWG 48 lbs. Gained 5 lbs since last visit. Denies PIH symptoms. U dip negative for protein. Advise walking at least 30 minutes daily. Sensible healthy diet. -History of pyelonephritis: Diagnosed on 10/10/2023. Keflex suppression ordered. -CD x 3: Repeat CD at 39 weeks, tentatively plan for 01/22/2024, unless clinically indicated otherwise. Right lateral placenta. Ultrasound on 11/23/2023 FU growth is accelerated with EFW at 94th%ile. The AKILA is WNL. H/O CSx3 with R lateral placenta, low suspicion for PAS. -LGA: 1 hour within normal limits. Healthy diet and exercise discussed. 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 2023-11-23 22:08:57 Pt given printed and verbal discharge instructions regarding dehydration, encouraged hydration. Pt verbalized understanding of instructions, pt awake alert oriented, resp reg unlabored, skin w/d, color appropriate for race, moves all ext well,pt encouraged to follow up with pcp. No adverse reaction to meds given in ER noted upon discharge PIV d'cd, dressing to site, catheter in tact. Awake, alert oriented, resp reg unlabored, skin w/d, pt leaving amb with steady gait, in no apparent distress. YMA Owens RN [facility] 2023-11-23 20:17:45 CC: "I feel like by heart is beating fast and nika hot" x 3 days. 30 wks and 3 days , managed by Dr. Mooney. Pt denies CP PMHx: none Awake, alert, oriented, resp reg unlabored, skin warm, color appropriate for race, moves all ext without difficulty, amb with steady gait YMA Loyola RN [facility] 2023-11-22 10:11:00 Recieved fax from [email or web address]. Signed and faxed back. Title 19- Stocking and back brace. YVONNE LAURENT RN 11/22/2023 10:11 AM YMA Laurent RN [facility] 2023-11-21 11:00:00 Age: [age] year old GA: 30w1d -Doing well - PUPPS: Itching with rash on the abdomen and also on her back. Does take hot long showers. Advised to take warm, not hot, and quick shower. Discussed calamine lotion. Atarax and hydrocortisone cream as needed. -Vaginal pain: Random and lasting about 2 minutes. Discussed round ligament pain/ discomfort. Advise maternity belt, rest prn, tylenol prn -History of pyelonephritis: Diagnosed on 10/10/2023. Keflex suppression ordered. -CD x 3: Repeat CD at 39 weeks, tentatively plan for 01/22/2024, unless clinically indicated otherwise. Right lateral placenta. Has PAS screening scheduled for 11/23/2023. 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 2023-11-09 17:01:04 Name and verified. Pt advised that US is to check status of placenta. Verbalized understanding. YVONNE LAURENT RN 11/09/2023 5:04 PM [employer] Yvonne Laurent RN [facility] 2023-11-09 16:07:51 Patient would like to know why she is doing a follow up usg in 3 weeks. [employer] Nani Brunner [facility] 2023-11-09 08:06:19 Name and verified. Advised pt to call place where she will be getting it done at to ask or call insurance. Verbalized understanding. YVONNE LAURENT RN 11/09/2023 8:08 AM [employer] Yvonne Laurent RN [facility] 2023-11-08 13:51:21 Contacted patient regarding new orders from Dr Mooney. Patient verbalized understanding of recommendations. Dimitri Bunn RN 11/08/2023 1:51 PM [employer] Dimitri Bunn RN [facility] 2023-11-08 11:00:00 Given 50gm fruit punch glucola without problems. Finished at [address]. [facility] 2023-11-08 11:00:00 Images from the original note were not included. Venipuncture collection performed by clean technique on the left anticubitus. Total of 1 attempts were made. Slight pressure and a bandage/dressing were applied to the site(s). The patient experienced no complications. The following specimens were processed according to instructions and sent to [facility] laboratories per lab order on 11/08/2023 : LT BLUE SST 2 RED 1 LAV 2 PPT DK GREEN (LiHep) DK GREEN (SodH) ROSE DK BLUE (K2) DK BLUE (S) ACD Blood Culture NIPT/NTD [facility] 2023-11-08 09:31:04 Attempted to contact patient. No answer, VM left. Dimitri Bunn RN 11/08/2023 9:[address] [facility] 2023-11-08 09:30:46 Images from the original note were not included. Laron Mooney MD Collins, Kinsley, RN Please remind patient that she needs to take Keflex daily for suppression for the remainder of due to history of pyelonephritis. Laron Mooney MD 11/07/2023 4:[address] [facility] 2023-11-07 15:45:00 Age: [age] year old GA: 28w1d -Doing well without concerns today -History of pyelonephritis: Diagnosed on 10/10/2023. Patient currently not on suppression. Keflex suppression ordered. -Rash on her back and chest and forehead appeared to be pimples -CD x 3: Repeat CD at 39 weeks unless clinically indicated otherwise. Right lateral placenta. Has PAS screening scheduled for 11/23/2023. 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 EFW 2 pounds 14 ounces, 90th percentile. -Have not done 28-week labs and serologies yet. Patient states will have it done tomorrow -Received Tdap vaccine today -Patient states that her boyfriend just got released from [employer] (he was in [employer] for 7 years). Patient wants to talk to a social scientist as states that he threatens to take this baby away from her. Patient states she feels safe at this time. - 3rd trimester teaching done- reviewed S/S of PTL (contractions, leakage of fluid and Vaginal bleeding) and also Kick Counts. Also dicussed [place], pelvic and lower back pains- expectations and differenced with S/S of PTL She plans to breast fed BC options reviewed- opted for Nexplanon Maintenance Representative: Dr. Jordan -Follow-up in 2 weeks for visit [facility] 2023-10-26 11:35:28 Pt returned nurse call she will log into [employer] to answer questions. YMA Wilson [facility] 2023-10-16 14:53:12 Spoke to pharmacist. She stated that the tube of Clotrimazole is 45 grams for [address] Mooney- okay to change to 45 grams. Pharmacist advised. YVONNE LAURENT RN 10/16/2023 2:54 PM YMA Laurent RN [facility] 2023-10-16 12:34:55 Pharm need to verify amount of med clotrimazole 1 % vaginal cream YMA Wilson [facility] 2023-10-16 12:06:08 White cloudy vaginal discharge, itching, odor started 3 days.C/o urine color orange. Explained that she will need to start the Augmentin and that I will speak with Dr. Mooney abut the vaginal issues. Verbalized understanding. YVONNE LAURENT RN 10/16/2023 12:07 PM YMA Laurent RN [facility] 2023-10-16 11:29:34 Pt says she got a call this morning from nurse. YMA Wilson [facility] 2023-10-11 18:50:00 Problem: Pain Goal: Control of pain at or below patient's documented comfort goal 10/11/2023 1905 by Rebecca Tomlinson RN Outcome: Resolved 10/11/2023 0816 by Rebecca Tomlinson RN Outcome: Progressing as expected Goal: Reduction in pain sensation 10/11/2023 1905 by Rebecca Tomlinson RN Outcome: Resolved 10/11/2023 0816 by Rebecca Tomlinson RN Outcome: Progressing as expected IV discontinued p Rocephin infused, Discharge instructions reviewed, understanding verbalized, changed into street clothes, discharged ambulatory YMA Tomlinson RN [facility] 2023-10-11 08:16:26 Problem: Pain Goal: Control of pain at or below patient's documented comfort goal Outcome: Progressing as expected Goal: Reduction in pain sensation Outcome: Progressing as expected [facility] 2023-10-11 08:15:23 Care plan initiated [facility] 2023-10-10 14:15:00 Age: [age] year old GA: 24w1d - Reports vomiting, fever, chills that started yesterday. Highest temp at home was 100.3. Denies taking any tylenol. States that she was able to drink a little water today but then vomited yellowish fluid. Pulse 131. Temp 100.5. To L&D for further evaluation. 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 2023-10-10 14:15:00 Addended by: JUNIOR TALAVERA on: 10/10/2023 02:46 PM Modules accepted: Orders [facility] 2023-10-08 08:50:33 See telephone encounter. YVONNE LAURENT RN 10/08/2023 8:50 AM YMA Laurent RN [facility] 2023-10-05 17:03:41 Name and verified. Pt advised of results and plan of care as stated below per provider. There has been an increase in interval growth with AC and EFW noted above 97th centile for gestational age, consistent with LGA (chart attached). The anatomy has been previously documented on a prior exam. On today's exam, the anatomical survey is unchanged unless as described subsequently. Recommend checking for gestational diabetes and follow up growth interval in 4 weeks. Will order 28-week labs and serologies on 10/10/2023 visit Pt verbalized understanding. YVONNE LAURENT RN 10/05/2023 5:07 PM [employer]ING [employer] Yvonne Laurent RN [facility] 2023-10-05 16:48:20 Junior Lester is a 28 year old female that is returning the clinic's call. Please advise. [employer] Sonam Acevedo [facility] 2023-06-15 14:47:37 Formatting of this n ote might be different from the original. Spoke with patient, got partners information, verified no drug allergies. Medication for partners treatment (Azithromycin 1g po x1 dose) called into [facility], verbal rx given to Hemanth-Pharmacist. Advised patient no intercourse for 7 days post treatment for patient and partner. Informed patient her and partner will need KAREN 3 weeks for patient and 3 months for partner. Patient verbalized understanding. Jose López RN 06/15/2023 2:50 PM Jose López RN [facility] 2023-06-15 14:19:58 Formatting of this n ote might be different from the original. Pt called and states that partner has been tested, but does not have results yet. She is wanting to discuss more about Dr. Mooney being able to treat her partner as well. Please advise. Call back number: [phone] Anjelica London [facility] 2023-06-13 14:36:28 Formatting of this n ote might be different from the original. Contacted patient regarding results. Patient advised of results from Dr. Mooney. Patient states her partner will get tested and treated. Patient verbalized understanding of results and recommendations. Dimitri Bunn RN 06/13/2023 2:37 PM Dimitri Bunn RN [facility] 2023-06-13 14:19:25 Formatting of this n ote might be different from the original. Attempted to contact patient. Call could not be completed at this time. Will send a [employer] message. Dimitri Bunn RN 06/13/2023 2:19 PM [facility] 2023-06-13 13:54:32 Formatting of this n ote might be different from the original. Pt calling to return a call from dr mooney. Would like a call back. Melida Moscosoiggs [facility] 2023-06-11 09:04:02 Formatting of this n ote might be different from the original. Returned pt's call and informed her dental clearance is ready for flower picker at [facility]. Pt verbalized understanding. Christine Quesada MA [facility] 2023-06-11 08:51:12 Formatting of this n ote might be different from the original. Pt calling to get a dental clearance for her appointment. They said the need this clearance today by 1pm. Would like to be called when its ready to pick Melida Combs [facility] 2023-06-08 14:30:00 Formatting of this n ote might be different from the original. Age: [age] year old GA: 6w3d CD x 3 - Op note reviewed: repeat LTCD on 01/30/22 and minimal adhesions noted - repeat CD at 39 wks unless clinically indicated otherwise Unsure LMP - Nexplanon removed on 04/11/23 - - Transvaginal USG for FHT: Single live IUP measured 6 3/7 weeks. Will date by this ultrasound unless clinically indicated otherwise New OB labs today. No complaints. Discussed do's and don'ts of , safe foods, safe medications. Reviewed Zika virus precautions. I discussed the call schedule and that I might not be the physician delivering her. I discussed I deliver my patients at [facility]. Expectations for weight gain this include 25-35 pounds. Encouraged to call if have any additional questions or concerns. Discussed aneuploidy and carrier screening; patient opts for [employer]. Horizon carrier negative. Have not received COVID vaccines. Counseled and recommend COVID vaccines. Patient declined Declined flu vaccines Discussed about COVID-19/flu precautions. Social distancing, frequent hand washings, wearing face mask, signs/symptoms for testing and to follow CDC recommendations discussed. Discussed with patient that she can have HEALTHY support with her during her delivery (which is subject to change depends on the COVID pandemic) Next visit in 4 week. [facility] [employer] 2023-05-24 10:30:00 Formatting of this n ote is different from the original. Images from the original note were not included. Per pt she is here to do orders for Laron Mooney MD- ordered labs by Ebenezer Araujo,ALIVIA .Anthony Simon 05/24/2023 10:12 AM Venipuncture collection performed by clean technique on the left anticubitus. Total of 1 attempts were made. Slight pressure and a bandage/dressing were applied to the site(s). The patient experienced no complications. The following specimens were processed according to instructions and sent to [facility] laboratories per lab order on 05/24/2023 : LT BLUE SST 1 RED LAV PPT DK GREEN (LiHep) DK GREEN (SodH) ROSE DK BLUE (K2) DK BLUE (S) ACD Blood Culture NIPT/NTD [facility] [employer] 2023-05-24 10:30:00 Formatting of this n ote might be different from the original. Beta HCT 876.34 Ebenezer Araujo NP 05/24/2023 2:47 PM [facility] 2023-05-18 09:36:46 Formatting of this n ote might be different from the original. Images from the original note were not included. Lab work ordered and appointment scheduled. [facility] 2023-05-17 12:15:00 Formatting of this n ote is different from the original. Images from the original note were not included. Venipuncture collection performed by clean technique on the left anticubitus. Total of 1 attempts were made. Slight pressure and a bandage/dressing were applied to the site(s). The patient experienced no complications. The following specimens were processed according to instructions and sent to [facility] laboratories per lab order on 05/17/2023: LT BLUE SST 1 RED LAV PPT DK GREEN (LiHep) DK GREEN (SodH) ROSE DK BLUE (K2) DK BLUE (S) ACD Blood Culture NIPT/NTD T [facility]
[2025-01-18] MEDS ORDERED: ONDANSETRON 4 MG (ODT) TAB ONE (20:09)
[2025-01-18 21:01] LABS: Specific Gravity 1.015 (1.005-1.030); Urine Bilirubin NEGATIVE (Negative); Urine Blood Negative (Negative); Urine Clarity Clear (Clear); Urine Color Light-Yellow (Yellow); Urine Culture Reflex Order REFLEXED; Urine Glucose NEGATIVE (Negative); Urine Ketones NEGATIVE (Negative); Urine Microscopic Reflex YN NO UMIC; Urine Nitrite NEGATIVE (Negative); Urine Protein NEGATIVE (Negative); Urine Urobilinogen Normal (Normal)
[2025-01-18 21:02] LABS: Specific Gravity 1.015 (1.005-1.030)
[2025-01-18 21:03] LABS: Absolute Lymphocytes (CBC) 1.6 K/uL (0.7-4.9); Absolute Monocytes 0.5 K/uL (0.1-1.3); Absolute Neutrophil 6.4 K/uL (1.8-8.0); Basophils % 0.2 % (0-1.3); Eosinophils % 0.4 % (0-4.4); Hematocrit 39.9 % (36.0-45.0); Hemoglobin 13.6 g/dL (12.0-15.0); Lymphocytes % 19.1 % (15.3-44.8); MCH 28.4 pg (27.0-35.0); MCV 83.3 fL (80-100); Monocytes % 5.3 % (3.3-12.3); Nucleated Red Blood Cells % 0.2 % (0-0); Platelets 289 thou/uL (152-406); RBC Red Blood Cell Count 4.79 M/uL (3.86-4.86); Red Cell Distribution Width 13.8 % (12.1-15.2)
[2025-01-18] MEDS ORDERED: ACETAMINOPHEN 500 MG TAB ONE (21:13)
[2025-01-18] MEDS ORDERED: NA CHLORIDE 0.9% 1,000 ML ONE (21:14)
[2025-01-18 21:23] LABS: Influenza A Ag Negative; Influenza B Ag Negative; SARS-CoV-2 Antigen Rapid Res Negative (Negative)
[2025-01-18 21:26] LABS: Anion Gap 7.7 mEq/L (5.0-15.0); Potassium 3.7 mEq/L (3.5-5.1)
--- NOTE | 2025-01-18 22:34 | RAD REPORT ---
EXAMINATION: US FIRST TRIMESTER TRANSVAGINAL WITH DOPPLER CLINICAL INDICATION: with pelvic pain TECHNIQUE: Real-time obstetrical ultrasonography of the maternal pelvis and first trimester was performed transvaginally. Color and spectral Doppler evaluation of the ovaries was performed. COMPARISON: No prior exam. FINDINGS: The uterus measures 10 x 5 x 5 cm A gestational sac is present within the endometrium measuring 13 x 5 x 14 mm. A pole was not se en. Right ovary normal in size and echotexture Left ovary normal in size and echotexture Right and left adnexa unremarkable No significant free fluid IMPRESSION: Sac within the endometrium corresponding to an estimated gestational age 5 weeks 5 days SIMONA 5. pole was not demonstrated presumably secondary to the early gestation. An incomplete c an also have this appearance. This also should be correlated clinically and with serial beta-hCG levels. Follow-up endovaginal sonogram in one week is recommended
--- NOTE | 2025-01-18 22:53 | EDPHYS ---
Physician Documentation [facility] Name: Yesica Islas Age: 29 yrs Sex: Female : 1995 Arrival Date: 01/18/2025 Time: 18:17 Bed 18 Private MD: ED Physician Waqas Siddiqi HPI: 01/18 18:50 This 29 yrs old Female presents to ER via Ambulatory with complaints of cp Vaginal Bleeding, + Preg <12wks. 18:50 The patient presents to the emergency department with abdominal pain, of the lower cp abdomen, described as crampy, vaginal bleeding, described as spotting. 18:50 The estimated gestational age is 6 weeks. cp 18:50 Associated signs and symptoms: Pertinent negatives: chest pain, fever, ruptured cp membranes, shortness of breath, vomiting. 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 - Infectious Disease History:: Denies. - Social history:: Smoking status: unknown. ROS: 19:00 Constitutional: Negative for body aches, chills, fever, poor PO intake, cp 19:00 Eyes: Negative for injury, pain, redness, and discharge, cp 19:00 ENT: Negative for drainage from ear(s), ear pain, sore throat, difficulty swallowing, difficulty handling secretions, 19:00 Cardiovascular: Negative for chest pain, edema, palpitations, 19:00 Respiratory: Negative for cough, shortness of breath, wheezing, 19:00 Abdomen/GI: Positive for abdominal cramps, Negative for nausea and vomiting, diarrhea, constipation, 19:00 Back: Negative for pain at rest, pain with movement, 19:00 : Positive for vaginal bleeding, Negative for urinary symptoms, 19:00 Neuro: Negative for altered mental status, headache, numbness, weakness, 19:00 All other systems are negative, Exam: 19:03 Constitutional: The patient appears in no acute distress, alert, awake, non-toxic, well cp developed, well nourished, overweight 19:03 Head/Face: Normocephalic, atraumatic. cp 19:03 Eyes: Periorbital structures: appear normal, Conjunctiva: normal, no exudate, no injection, Sclera: no appreciated abnormality, Lids and lashes: appear normal, bilaterally, 19:03 ENT: External ear(s): are unremarkable, Nose: is normal, Mouth: Lips: moist, Oral mucosa: moist, Posterior pharynx: Airway: no evidence of obstruction, patent, 19:03 Chest/axilla: Inspection: normal, 19:03 Cardiovascular: Rate: normal, Rhythm: regular, 19:03 Respiratory: the patient does not display signs of respiratory distress, Respirations: normal, no use of accessory muscles, no retractions, labored breathing, is not present, Breath sounds: are clear throughout, no decreased breath sounds, no stridor, no wheezing, 19:03 Abdomen/GI: Inspection: abdomen appears normal, Bowel sounds: active, all quadrants, Palpation: soft, in all quadrants, mild abdominal tenderness, in the suprapubic area, right lower quadrant and left lower quadrant, rebound tenderness, is not appreciated, involuntary guarding, is not appreciated, 19:03 Back: pain, is absent, ROM is normal, Vital Signs: 18:29 BP 127 / 08; Pulse 90; Resp 16; Temp 99(O); Pulse Ox 100% on R/A; Weight 81.65 kg; hb Height 5 ft. 2 in. ; Pain 0/10; 19:45 BP 114 / 74; Pulse 92; Resp 18; Pulse Ox 100% ; kj2 20:45 BP 118 / 72; Pulse 90; Resp 18; Pulse Ox 100% on R/A; kj2 23:07 BP 116 / 70; Pulse 84; Resp 18; Temp 98; Pulse Ox 100% ; kj2 18:29 Body Mass Index 32.92 (81.65 kg, 157.48 cm) hb 18:29 Pain Scale: Adult hb MDM: 22:52 Data reviewed: vital signs, nurses notes, lab test result(s), radiologic studies, cp ultrasound, and as a result, I will discharge patient. 22:52 Differential diagnosis: STD, ectopic . I considered the following discharge cp prescriptions or medication management in the emergency department Medications were administered in the Emergency Department. See MAR. Counseling: I had a detailed discussion with the patient and/or guardian regarding the historical points, exam findings, and any diagnostic results supporting the discharge/admit diagnosis, lab results, radiology results, the need for outpatient follow up, an OB/Gyne specialist, to return to the emergency department if symptoms worsen or persist or if there are any questions or concerns that arise at home. 22:53 Medical Screening Exam initiated 01/18 18:43 Order name: Abo/rh Typing; Complete Time: 22:40 cp 01/18 22:41 Interpretation: Reviewed. 01/18 18:43 Order name: Basic Metabolic Panel; Complete Time: 22:40 cp 01/18 22:41 Interpretation: Normal except: GLUC 109. 01/18 18:43 Order name: CBC with Diff; Complete Time: 22:40 cp 01/18 22:41 Interpretation: Normal except: DANIELLA% 75.0. 01/18 18:43 Order name: Test, Urine; Complete Time: 22:40 cp 01/18 22:41 Interpretation: Reviewed. 01/18 18:43 Order name: Quantitative Hcg; Complete Time: 22:40 01/18 22:41 Interpretation: Reviewed. 01/18 18:43 Order name: Urinalysis w/ reflexes; Complete Time: 22:40 cp 01/18 22:42 Interpretation: Reviewed. 01/18 18:43 Order name: COVID-19 Ag + Flu A+B Ag; Complete Time: 22:40 01/18 22:42 Interpretation: Reviewed. 01/18 21:05 Order name: Urine Culture EDNH 01/18 18:43 Order name: US Transvaginal Ob; Complete Time: 22:40 cp 01/18 18:43 Order name: IV Saline Lock; Complete Time: 20:58 cp 01/18 18:43 Order name: Labs collected and sent; Complete Time: 20:58 cp 01/18 18:43 Order name: NPO; Complete Time: 20:58 cp Administered Medications: 20:58 Drug: Ondansetron PO 4 mg PO once Route: PO; kj2 22:16 Follow up: Response: No adverse reaction kj2 21:21 Drug: NS 0.9% IV 1000 ml IV at 1 bolus Per protocol; to be given as a bolus over 60 kj2 minutes Route: IV; Rate: 1 bolus; Site: left antecubital; 21:21 Drug: Acetaminophen PO 1000 mg PO once Route: PO; kj2 22:16 Follow up: Response: No adverse reaction kj2 Point of Care Testing: Urine : 23:10 hCG Reading: Positive; kj2 Disposition Summary: 01/18/25 22:53 Discharge Ordered Notes: Location: Home cp Problem: new cp Symptoms: have improved cp Condition: Stable cp Diagnosis - Threatened cp Followup: cp - With: Private Physician - When: 48 Hours - Reason: Repeat Beta-HCG (48 Hours) Discharge Instructions: - Discharge Summary Sheet cp - Abdominal Pain During cp - Care cp - Threatened Miscarriage cp - Vaginal Bleeding During , First Trimester cp - First Trimester of cp - Activity Restriction During cp Forms: - Medication Reconciliation Form cp - Antibiotic Education cp - Prescription Opioid Use cp - Patient Portal Instructions cp - Leadership Thank You Letter cp Addendum: 01/20/2025 14:48 Co-signature as Attending Physician, Waqas Siddiqi MD I agree with the assessment and c tamayo plan of care. Signatures: Dispatcher [employer] Waqas Reveles MD MD cha Page, Corey, ARMANDO PA cp Katerin Stringer, RN RN Izzy Sheridan RN RN kj2 Corrections: (The following items were deleted from the chart) 01/18 18:43 18:43 Transvaginal Ob+US.RAD.BRZ ordered. [facility] 01/19 18:51 01/18 18:50 6, Full Term 4, 1, Living 4, LMP 12/23/2024, cp unknown cp
--- NOTE | 2025-01-18 22:53 | ER ---
Nurse's Notes [facility] Name: Yesica Islas Age: 29 yrs Sex: Female : 1995 Arrival Date: 01/18/2025 Time: 18:17 Bed 18 Private MD: Diagnosis: Threatened Presentation: 01/18 18:29 Chief complaint: Spotty vaginal bleeding x 2 days, positive home test, LMP hb 3/07, . Coronavirus screen: At this time, the client does not indicate any symptoms associated with coronavirus-19. Ebola Screen: No symptoms or risks identified at this time. Initial Sepsis Screen: Does the patient meet any 2 criteria? No. Patient's initial sepsis screen is negative. Does the patient have a suspected source of infection? No. Patient's initial sepsis screen is negative. Risk Assessment: Do you want to hurt yourself or someone else? Patient reports no desire to harm self or others. Onset of symptoms was January 17, 2025. 18:29 Method Of Arrival: Ambulatory hb 18:29 Acuity: KOFI 3 hb Triage Assessment: 22:15 GI: Reports. 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 - Infectious Disease History:: Denies. - Social history:: Smoking status: unknown. Screenin:45 [facility] ED Fall Risk Assessment (Adult) History of falling in the last 3 months, kj2 including since admission No falls in past 3 months (0 pts) Confusion or Disorientation No (0 pts) Intoxicated or Sedated No (0 pts) Impaired Gait No (0 pts) Mobility Assist Device Used No (0 pt) Altered Elimination No (0 pt) Score/Fall Risk Level 0 - 2 = Low Risk Maintained a safe environment, Hourly rounding (assess needs \T\ fall precautionary measures) done. Abuse screen: Denies threats or abuse. Denies injuries from another. Nutritional screening: No deficits noted. Tuberculosis screening: No symptoms or risk factors identified. Assessment: 19:45 General: Appears in no apparent distress. Behavior is calm, cooperative. Pain: Denies kj2 pain. Neuro: Level of Consciousness is awake, alert, obeys commands, Oriented to person, place, time, situation. Cardiovascular: Patient's skin is warm and dry. Respiratory: Airway is patent Respiratory effort is even, unlabored. GI: Abdomen is. : No signs and/or symptoms were reported regarding the genitourinary system. 20:45 Reassessment: Patient appears in no apparent distress at this time. Patient and/or kj2 family updated on plan of care and expected duration. Pain level reassessed. Patient is alert, oriented x 3, equal unlabored respirations, skin warm/dry/pink. 21:45 Reassessment: Patient appears in no apparent distress at this time. Patient and/or kj2 family updated on plan of care and expected duration. Pain level reassessed. Patient is alert, oriented x 3, equal unlabored respirations, skin warm/dry/pink. 23:07 Reassessment: Patient appears in no apparent distress at this time. Patient and/or kj2 family updated on plan of care and expected duration. Pain level reassessed. Patient is alert, oriented x 3, equal unlabored respirations, skin warm/dry/pink. 23:12 Obstetrical Assessment: General assessment: awake and alert. kj2 Vital Signs: 18:29 BP 127 / 08; Pulse 90; Resp 16; Temp 99(O); Pulse Ox 100% on R/A; Weight 81.65 kg; hb Height 5 ft. 2 in. ; Pain 0/10; 19:45 BP 114 / 74; Pulse 92; Resp 18; Pulse Ox 100% ; kj2 20:45 BP 118 / 72; Pulse 90; Resp 18; Pulse Ox 100% on R/A; kj2 23:07 BP 116 / 70; Pulse 84; Resp 18; Temp 98; Pulse Ox 100% ; kj2 18:29 Body Mass Index 32.92 (81.65 kg, 157.48 cm) hb 18:29 Pain Scale: Adult hb Vitals: 23:11 Heart Tones present. kj2 ED Course: 18:21 Patient arrived in ED. al6 18:31 Triage completed. hb 18:31 Arm band placed on. hb 18:37 Waqas Aguillon PA is PHCP. cp 18:37 Waqas Siddiqi MD is Attending Physician. cp 19:45 Patient has correct armband on for positive identification. Bed in low position. Call kj2 light in reach. Adult w/ patient. Provided Education on: call light. 20:07 Izzy Sheridan, RN is Primary Nurse. kj2 20:35 Inserted saline lock: 20 gauge in left antecubital area, using aseptic technique. Blood rk3 collected. Flushed with 10 mL NS. 20:58 Abo/rh Typing Sent. kj2 22:24 US Transvaginal Ob In Process Unspecified. EDMS 23:09 No provider procedures requiring assistance completed. IV discontinued, intact, kj2 bleeding controlled, No redness/swelling at site. Pressure dressing applied. Administered Medications: 20:58 Drug: Ondansetron PO 4 mg PO once Route: PO; kj2 22:16 Follow up: Response: No adverse reaction kj2 21:21 Drug: NS 0.9% IV 1000 ml IV at 1 bolus Per protocol; to be given as a bolus over 60 kj2 minutes Route: IV; Rate: 1 bolus; Site: left antecubital; 21:21 Drug: Acetaminophen PO 1000 mg PO once Route: PO; kj2 22:16 Follow up: Response: No adverse reaction kj2 Medication: 22:17 VIS not applicable for this client. kj2 Point of Care Testing: Urine : 23:10 hCG Reading: Positive; kj2 Outcome: 22:53 Discharge ordered by MD. cp 23:10 Discharged to home ambulatory, kj2 23:10 Condition: stable 23:10 Discharge instructions given to patient, Instructed on discharge instructions, follow up and referral plans. Demonstrated understanding of instructions, follow-up care, 23:17 Patient left the ED. kj2 Signatures: Dispatcher [employer] EDWV Waqas Aguillon PA PA cp Baxter, Heather, RN RN hb Jordan, Krystal, RN RN kj2 Juliana Osuna al6 Mónica Lopez rk3 Corrections: (The following items were deleted from the chart) 18:31 18:29 Chief complaint: Spotty vaginal bleeding x 2 days, positive home test, hb LMP 3/07, G6L4 hb
[2025-01-18 23:31] VITALS: O2SAT 100
[2025-01-18 23:44] VITALS: BP 116/70; TEMP 98
== END 2025-01-18 23:17 | disposition home or self-care (01) ==
LOC: ER 18:17
DX: O20.0 Threatened abortion (principal); Z11.52 Encounter for screening for COVID-19
CPT/HCPCS: 87088; 85025; 87086; 80048; 36415; 86900; 81025; 86901; 84702; 81003; 76817; 99284; 87428; Q0162; J7030